=== PATIENT | male | born 1960 | race Caucasian/White ===

== ENCOUNTER 2017-03-06 14:51 | Emergency (ER) | payer OTHER ==
[2017-03-06 15:00] VITALS: TEMP 97.6; BMI 39.4
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
[2017-03-06] MEDS ORDERED: OXYCODONE/APAP 5/325MG COMBO TABLET PO ONE (18:32)
[2017-03-06] MEDS ORDERED: OXYCODONE/APAP 5/325MG COMBO TABLET ONE (19:16)
[2017-03-06 19:21] VITALS: BP 154/89; PULSE 65
== END 2017-03-06 19:21 | disposition home or self-care (01) ==
LOC: JER 14:51
DX: S13.4XXA Sprain of ligaments of cervical spine, initial encounter (principal); V43.52XA Car driver injured in collision with other type car in traffic accident, initial encounter; Y93.89 Activity, other specified; Y92.410 Unspecified street and highway as the place of occurrence of the external cause; E11.9 Type 2 diabetes mellitus without complications; I10 Essential (primary) hypertension; E78.00 Pure hypercholesterolemia, unspecified; Z79.4 Long term (current) use of insulin; Z96.41 Presence of insulin pump (external) (internal); Z95.5 Presence of coronary angioplasty implant and graft; Z95.810 Presence of automatic (implantable) cardiac defibrillator
CPT/HCPCS: 70450-TC; 99282-25

== ENCOUNTER 2017-09-28 10:29 | Observation (INO) | payer OTHER ==
--- NOTE | 2017-09-28 10:53 | PDOC ---
History of Present Illness - General Chief Complaint: Chest Pain Stated Complaint: CHEST PAIN, DIZZINESS Time Seen by Provider: 09/28/17 10:38 History Source: Patient - History of Present Illness Presenting Symptoms: Chest Pain, Dizziness Timing/Duration: reports: intermittent Past History - Past Medical History Allergies/Adverse Reactions: Allergies Allergy/AdvReac Type Severity Reaction Status Date / Time No Known Allergies Allergy Verified 09/28/17 10:34 Home Medications: Ambulatory Orders Atorvastatin Ca [Lipitor] 80 mg PO HS 07/13/13 Carvedilol Phosphate [Coreg Cr] 25 mg PO DAILY 07/13/13 Clopidogrel Bisulfate [Plavix -] 75 mg PO DAILY 07/13/13 Ranolazine [Ranexa] 500 mg PO BID 07/13/13 Ranitidine [Zantac -] 150 mg PO DAILY 06/19/17 Insulin (Levemir) [Levemir Vial] 25 unit SQ ACBK 06/20/17 Clonidine Patch [Catapres Tts Patch -] 0.3 mg TD WEEKLY 06/21/17 Insulin (LOG) Aspart [NovoLOG -] 0 units SQ ACHS 06/21/17 Isosorbide Mononitrate [Imdur -] 30 mg PO DAILY #30 tab 06/23/17 Aspirin [ASA -] 81 mg PO DAILY 09/28/17 Ergocalciferol (Vitamin D2) [Vitamin D2] 50,000 unit PO DAILY 09/28/17 Febuxostat [Uloric -] 80 mg PO DAILY 09/28/17 Nitroglycerin [Nitrostat] 0.4 mg SL PRN PRN 09/28/17 Sacubitril/Valsartan [Entresto 24 mg-26 mg Tablet] 4 each PO ASDIR 09/28/17 Anemia: Yes Asthma: No Cancer: No Cardiac Disorders: Yes (cad,mi Defibrilator) CVA: No COPD: No CHF: Yes Dementia: No Diabetes: Yes (IDDM) GI Disorders: No Disorders: No HTN: Yes Hypercholesterolemia: Yes Liver Disease: No Seizures: No Thyroid Disease: No - Surgical History Cardiac Surgery: Yes (CABG,ICD,CARD STENT X1, DEFIBRILLATOR) GI Surgery: Yes (INSULIN PUMP) Orthopedic Surgery: Yes (left knee arthoscopy) - Suicide/Smoking/Psychosocial Hx Smoking History: Never smoked Hx Alcohol Use: No Drug/Substance Use Hx: No Substance Use Type: None Hx Substance Use Treatment: No Cardiac Specific PMH - Complaint Specific PMHX Pacemaker: No Review of Systems - Review of Systems Constitutional: No: Chills, Fever Respiratory: No: Cough, Shortness of Breath Cardiac (ROS): Yes: Chest Pain. No: Palpitations, Syncope ABD/GI: Yes: Nausea. No: Vomiting Neurological: Yes: Dizziness. No: Headache, Numbness, Tingling, Weakness *Physical Exam - Vital Signs Last Vital Signs Temp Pulse Resp BP Pulse Ox 97.5 F L 66 14 122/75 100 09/28/17 10:32 09/28/17 13:26 09/28/17 13:26 09/28/17 13:26 09/28/17 13:26 - Physical Exam General Appearance: Yes: Appropriately Dressed. No: Apparent Distress HEENT: positive: Normal Voice Neck: positive: Supple Respiratory/Chest: positive: Lungs Clear, Normal Breath Sounds. negative: Respiratory Distress Cardiovascular: positive: Regular Rate, S1, S2 Gastrointestinal/Abdominal: positive: Soft. negative: Tender Extremity: positive: Normal Inspection. negative: Pedal Edema Integumentary: positive: Dry, Warm Neurologic: positive: Fully Oriented, Alert, Normal Mood/Affect ED Treatment Course - LABORATORY CBC & Chemistry Diagram: 09/28/17 12:25 09/28/17 12:25 - ADDITIONAL ORDERS Additional order review: Laboratory Results 09/28/17 09/28/17 12:25 12:25 Sodium 135 L Potassium 4.6 Chloride 102 Carbon Dioxide 24 Anion Gap 9 BUN 75 H Creatinine 4.3 H Creat Clearance w eGFR 14.41 Random Glucose 146 H D Calcium 8.1 L Total Bilirubin 0.4 D AST 16 ALT 26 Alkaline Phosphatase 136 H Creatine Kinase 86 Troponin I 0.42 H D B-Natriuretic Peptide 3492.34 H Total Protein 7.6 Albumin 3.4 09/28/17 12:25 RBC 3.78 L MCV 87.8 MCHC 34.4 RDW 14.5 MPV 6.9 L Neutrophils % 73.7 Lymphocytes % 15.4 Monocytes % 8.8 Eosinophils % 1.2 Basophils % 0.9 - RADIOLOGY Radiology Studies Ordered: Category Date Time Status CHEST X-RAY PORTABLE* [RAD] Stat Radiology 09/28/17 10:42 Completed - Medications Given in the ED: ED Medications Discontinued Medications Generic Name Dose Route Start Last Admin Trade Name Giuliano PRN Reason Stop Dose Admin Aspirin 325 mg 09/28/17 11:00 09/28/17 11:52 Asa - PO 09/28/17 11:01 Not Given ONCE ONE Aspirin 162 mg 09/28/17 11:42 09/28/17 11:42 Asa - PO 09/28/17 11:43 162 mg ONCE ONE Administration Medical Decision Making - Medical Decision Making 09/28/17 10:47 56-year-old male, significant cardiac disease including hypertension, hyperlipidemia, CAD, status post AL, status post CABG, status post stent 1, CHF on torsemide, status post AICD, aortic stenosis, CKD, insulin-dependent diabetic and left retinal detachment, here with dizziness and chest pain. Patient states he was in his usual state of health until this a.m. when he woke up with a sensation of the room spinning that has since improved. Denies any exacerbating or alleviating factors. Denies headache, acute visual changes, slurred speech or focal weakness. Around 40 minutes ago developed left upper non-radiating chest pain that is sharp in nature with an intensity of 8 out of 10, ntermittent and lasts for seconds w/ no exacerbating/alleviating factors. No shortness of breath, diaphoresis or acute edema. Does admit to nausea but no vomiting. States he has had a similar chest pain multiple times in the past that usually self resolves. States dizziness is new for him. Patient follows up with Dr. Stevenson of primary care and Dr. Mac of cardiology. States he saw his administrative project coordinator recently who increased his entresto. See exam CP w/ dizziness R/o ACS, less likely PE, dissection or CVA Hypotensive in ED w/ unremarkable exam otherwise -asa -ekg -cxr -labs -anticipate admission 09/28/17 11:00 09/28/17 13:18 EKG unchanged from prior. BNP of over 3000, higher that in the past, but no evidence of fluid overload clinically. Has elevated troponin of 0.4. Based on chart review, usually makes trops of ~0.1, highest 0.9 Tropenemia today possibly 2/2 demand ischemia. Patient has no chest pain, shortness of breath at this time, and stable on monitor. Will contact Dr. Mullen of cardiology to discuss disposition 09/28/17 14:[address] Jensen of cardiology, no recommendations at this time, will see patient in the a.m. Case discussed with hospitalist and patient admitted to obs telemetry *DC/Admit/Observation/Transfer Diagnosis at time of Disposition: Chest pain Qualifiers: Chest pain type: unspecified Qualified Code(s): R07.9 - Chest pain, unspecified - Discharge Dispostion Condition at time of disposition: Fair Admit: Yes Decision to Admit order Date/Time: Decision to Admit Order Category Date Time Status Decision to Admit to Hospital Routine Admission 09/28/17 14:43 Ordered - Referrals - Patient Instructions Printed Discharge Instructions: DI for Atypical Chest Pain - Post Discharge Activity
[2017-09-28] MEDS ORDERED: ASPIRIN 325 MG TABLET PO ONE ×2 (11:00→11:42)
[2017-09-28] MEDS ORDERED: ASPIRIN 81 MG CHEWABLE TABLETS ONE (11:43)
[2017-09-28 12:29] LABS: BASO % 0.9 % (0-2.0); EOS % 1.2 % (0-4.5); HEMATOCRIT 33.2 % (35.4-49); HEMOGLOBIN 11.4 GM/dL (11.7-16.9); LYMPH % 15.4 % (8-40); MCH 30.2 pg (25.7-33.7); MCHC 34.4 g/dl (32.0-35.9); MEAN CELL VOLUME 87.8 fl (80-96); MEAN PLT VOLUME 6.9 fl (7.5-11.1); MONO % 8.8 % (3.8-10.2); NEUT % 73.7 % (42.8-82.8); PLATELET COUNT 253 K/MM3 (134-434); RBC 3.78 M/mm3 (4.00-5.60); RDW 14.5 % (11.9-15.9); WHITE BLOOD COUNT 8.5 K/mm3 (4.0-10.0)
[2017-09-28 12:55] LABS: ALBUMIN 3.4 g/dl (3.4-5.0); ANION GAP 9 (8-16); BILIRUBIN,TOTAL 0.4 mg/dL (0.2-1.0); BLOOD UREA NITROGEN 75 mg/dL (7-18); CALCIUM 8.1 mg/dL (8.5-10.1); CHLORIDE 102 mmol/L (98-107); CO2 24 mmol/L (21-32); CREATININE 4.3 mg/dL (0.7-1.3); GLUCOSE,RANDOM 146 mg/dL (74-106); POTASSIUM 4.6 mmol/L (3.5-5.1); SGOT/AST 16 U/L (15-37); SGPT/ALT 26 U/L (12-78); SODIUM 135 mmol/L (136-145); TOT PROT 7.6 g/dl (6.4-8.2)
[2017-09-28 12:57] LABS: ALK PHOS 136 U/L (45-117)
--- NOTE | 2017-09-28 14:55 | HP ---
CHIEF COMPLAINT: chest pain, dizziness PCP: Dr. Stevenson HISTORY OF PRESENT ILLNESS: This is a 56 year old male with a significant past medical history of HTN, HLD, CAD, SD s/p CABG, systolic heart failure, s/p AICD, , CKD, DM, presents to the emergency room with chest pain and dizziness since he woke up this morning. Chest pain is sharp, around area of defibrillator, which is chronic for him. He denies numbness, tingling, radiation, arm, jaw pain, n, v, diaphoresis, palpitations. Dizziness was apparent after getting out of bed, it progressed throughout the day and at work. Sitting down/ rest relieved dizziness. He denies LOC. He did not eat or drink anything today. Dizziness progressed throughout the day which provoked coming to the hospital. Patient follows with cardiology regularly, as per patient his medication entresto was doubled recently. ER course was notable for: (1) CBC, CMP (2)EKG no ST,T wave changes (3)CXR no acute process (4)trop 0.42 ,BNP >3000 Recent Travel:denies PAST MEDICAL HISTORY: HTN, HLD, CAD s/p SD, systolic heart failure, aortic stenosis, CKD, IDDM, and left retinal detachment, gout, JOSIANE PAST SURGICAL HISTORY: stent [facility] 2006; acid 2007, left knee arthroscope Social History: Smoking:denies Alcohol:denies Drugs: denies Family History: HTN , DM, Cancer (no known what type), heart diseases Allergies No Known Allergies Allergy (Verified 09/28/17 10:34) HOME MEDICATIONS: Home Medications Medication Instructions Recorded Atorvastatin Ca [Lipitor] 80 mg PO HS 07/13/13 Carvedilol Phosphate [Coreg Cr] 25 mg PO DAILY 07/13/13 Clopidogrel Bisulfate [Plavix -] 75 mg PO DAILY 07/13/13 Ranolazine [Ranexa] 500 mg PO BID 07/13/13 Ranitidine [Zantac -] 150 mg PO DAILY 06/19/17 Insulin (Levemir) [Levemir Vial] 25 unit SQ ACBK 06/20/17 Clonidine Patch [Catapres Tts 0.3 mg TD WEEKLY 06/21/17 Patch -] Insulin (LOG) Aspart [NovoLOG -] 0 units SQ ACHS 06/21/17 Isosorbide Mononitrate [Imdur -] 30 mg PO DAILY #30 tab 06/23/17 Aspirin [ASA -] 81 mg PO DAILY 09/28/17 Ergocalciferol (Vitamin D2) 50,000 unit PO DAILY 09/28/17 [Vitamin D2] Febuxostat [Uloric -] 80 mg PO DAILY 09/28/17 Nitroglycerin [Nitrostat] 0.4 mg SL PRN PRN 09/28/17 Sacubitril/Valsartan [Entresto 24 4 each PO ASDIR 09/28/17 mg-26 mg Tablet] REVIEW OF SYSTEMS CONSTITUTIONAL: Absent: fever, chills, diaphoresis, generalized weakness, malaise, loss of appetite, weight change HEENT: Absent: rhinorrhea, nasal congestion, throat pain, throat swelling, difficulty swallowing, mouth swelling, ear pain, eye pain, visual changes CARDIOVASCULAR: Absent: chest pain, syncope, palpitations, irregular heart rate, lightheadedness , peripheral edema RESPIRATORY: Absent: cough, shortness of breath, dyspnea with exertion, orthopnea, wheezing, stridor, hemoptysis GASTROINTESTINAL: Absent: abdominal pain, abdominal distension, nausea, vomiting, diarrhea, constipation, melena, hematochezia GENITOURINARY: Absent: dysuria, frequency, urgency, hesitancy, hematuria, flank pain, genital pain MUSCULOSKELETAL: Absent: myalgia, arthralgia, joint swelling, back pain, neck pain SKIN: Absent: rash, itching, pallor HEMATOLOGIC/IMMUNOLOGIC: Absent: easy bleeding, easy bruising, lymphadenopathy, frequent infections ENDOCRINE: Absent: unexplained weight gain, unexplained weight loss, heat intolerance, cold intolerance NEUROLOGIC: Absent: headache, focal weakness or paresthesias, dizziness, unsteady gait, seizure, mental status changes, bladder or bowel incontinence PSYCHIATRIC: Absent: anxiety, depression, suicidal or homicidal ideation, hallucinations. PHYSICAL EXAMINATION Vital Signs - 24 hr 09/28/17 09/28/17 09/28/17 10:32 11:50 13:26 Temperature 97.5 F L Pulse Rate 70 Pulse Rate [ 70 66 Apical] Respiratory 18 16 14 Rate Blood Pressure 99/68 Blood Pressure 123/70 122/75 [Right Arm] O2 Sat by Pulse 100 100 100 Oximetry (%) GENERAL: Awake, alert, and fully oriented, in no acute distress. HEAD: Normal with no signs of trauma. EYES:left eye legal blind cornea white , Right eye Pupils equal, round and reactive to light, extraocular movements intact, sclera anicteric, conjunctiva clear ENT: Moist mucous membranes. NECK: Normal range of motion, supple without lymphadenopathy, JVD, LUNGS: Breath sounds equal, clear to auscultation bilaterally. No wheezes, and no crackles. No accessory muscle use. HEART: Regular rate and rhythm, normal S1 and S2 2/6 systolic murmur in LUSB , No rub or gallop. ABDOMEN: Obese, Soft, nontender, not distended, normoactive bowel sounds, no guarding, no rebound MUSCULOSKELETAL: Normal range of motion at all joints. No bony deformities or tenderness. No CVA tenderness. UPPER EXTREMITIES: 2+ pulses, warm, well-perfused. No cyanosis. No clubbing. No peripheral edema. LOWER EXTREMITIES: 2+ pulses, warm, well-perfused. No calf tenderness. No peripheral edema. NEUROLOGICAL: Cranial nerves II-XII intact. Normal speech. PSYCHIATRIC: Cooperative. Good eye contact. Appropriate mood and affect. SKIN: Warm, dry, normal turgor, no rashes or lesions noted, normal capillary refill. Laboratory Results - last 24 hr 09/28/17 09/28/17 09/28/17 12:25 12:25 12:25 WBC 8.5 D RBC 3.78 L Hgb 11.4 L D Hct 33.2 L MCV 87.8 MCH 30.2 MCHC 34.4 RDW 14.5 Plt Count 253 D MPV 6.9 L Neutrophils % 73.7 Lymphocytes % 15.4 Monocytes % 8.8 Eosinophils % 1.2 Basophils % 0.9 Sodium 135 L Potassium 4.6 Chloride 102 Carbon Dioxide 24 Anion Gap 9 BUN 75 H Creatinine 4.3 H Creat Clearance w eGFR 14.41 Random Glucose 146 H D Calcium 8.1 L Total Bilirubin 0.4 D AST 16 ALT 26 Alkaline Phosphatase 136 H Creatine Kinase 86 Troponin I 0.42 H D B-Natriuretic Peptide 3492.34 H Total Protein 7.6 Albumin 3.4 CBC, BMP 09/28/17 12:25 09/28/17 12:25 ASSESSMENT/PLAN: # chest pain R/O ACS * Trop 0.42 trend (has chronic elevation around 0.9 ) * EKG : NO St,T wave changes * ASA * CXR * cardiac monitoring * ECHO 07/03: LV systolic dysfunction with mild * Stress test 07/03: with anterior ischemic defect, inferior, infero-lateral defect infarct with avani-infarct ischemia, severe LV dysfunction with LVEF of 27 % * cardiology consult * cont home nitrostat 0.4mg sl prn and renexa 500mg po bod for chest pain #Dizziness: * most likely dehydrated * check orthostatic BP * gentle hydration NS 75mls/hr # HECTOR on CKD stage 4 * BUN/CR 75/4.3 , monitor base line around 3.2 * gentle hydration NS @ 75 CC/hr * * # H/O CAD s/p CABG, s/p stent x1 , SD * Continue ASA * Carvedilol cr 80mg daily * Plavix 75mg daily * Ranexa 500 BID * cont imdur 30mg chaparro # HTN * low on admission 99/68 improved to 123/70 * continue home meds coreg 80 daily, clonidine 0.3 patch weekly , Imdur 30 mg po daily,Entresto # chronic systolic CHF in no acute exacerbation * elevated BNP around 3000 * no signs of volume overload; lungs clear; not sob; no edema * CXR with cardiomegaly; unchanged from previous * cont home diuretic meds * last ECHO 06/22/17 : LV systolic dysfunction , , * Stress test positive with anterior ischemic defect, inferior, infero-lateral defect infarct with avani-infarct ischemia, severe LV dysfunction with LVEF of 27 % * # HLD * continue Lipitor 80 mg po HS # IDDM, * hold oral meds * ISS * cont Levemir 25 ACBK * Diabetic diet * last HGbA1c 9.2 , repeat # H/O Gout , stable * not using home meds Febuxostat # FEN * F: gently hydration 1L NS * E: elevated BUN /CR , monitor * N: low sodium,diabetic diet # Proph * DVT: cont plavix 75 mg daily * GI : no needed for now # Dispo * Admit to tele obs
[2017-09-28 15:01] LABS: URINE APPEARANCE CLEAR; URINE BILIRUBIN NEGATIVE (NEGATIVE); URINE BLOOD NEGATIVE (NEGATIVE); URINE COLOR YELLOW; URINE GLUCOSE (UA) 1+ (NEGATIVE); URINE KETONE NEGATIVE (NEGATIVE); URINE LEUK ESTERASE NEGATIVE (NEGATIVE); URINE NITRITE NEGATIVE (NEGATIVE); URINE UROBILINOGEN NEGATIVE mg/dL (0.2-1.0)
--- NOTE | 2017-09-28 15:04 | HP ---
CHIEF COMPLAINT: chest pain/dizzy PCP: Dr. Stevenson HISTORY OF PRESENT ILLNESS: This is a 56 year old male with a significant past medical history of HTN, HLD, CAD, [place] s/p CABG, systolic heart failure, s/p AICD, , CKD, DM, presents to the emergency room with chest pain and dizziness since he woke up this morning. Chest pain is sharp, around area of defibrillator, which is chronic for him. He denies numbness, tingling, radiation, arm, jaw pain, n, v, diaphoresis, palpitations. Dizziness was apparent after getting out of bed, it progressed throughout the day and at work. Sitting down/ rest relieved dizziness. He denies LOC. He did not eat or drink anything today. Dizziness progressed throughout the day which provoked coming to the hospital. Patient follows with cardiology regularly, as per patient his medication entresto was doubled recently. ER course was notable for: ECG unchanged from previous. First troponin was 0.42 ; (chronically around 0.1-0.9). BNP was elevated >3,000; (chronically around 1, 000). BUN/Cr slightly elevated from baseline. CXR with cardiomegaly; no new effusion. Recent Travel: no PAST MEDICAL HISTORYHTN, HLD, CAD s/p NC, systolic heart failure, aortic stenosis, CKD, IDDM, and left retinal detachment, gout, JOSIANE PAST SURGICAL HISTORY: stent [facility] 2006; acid 2007 Social History: Smoking:quit 50 yrs ago Alcohol:no Drugs: no Family History: Allergies No Known Allergies Allergy (Verified 09/28/17 10:34) HOME MEDICATIONS: Home Medications Medication Instructions Recorded Atorvastatin Ca [Lipitor] 80 mg PO HS 07/13/13 Carvedilol Phosphate [Coreg Cr] 25 mg PO DAILY 07/13/13 Clopidogrel Bisulfate [Plavix -] 75 mg PO DAILY 07/13/13 Ranolazine [Ranexa] 500 mg PO BID 07/13/13 Ranitidine [Zantac -] 150 mg PO DAILY 06/19/17 Insulin (Levemir) [Levemir Vial] 25 unit SQ ACBK 06/20/17 Clonidine Patch [Catapres Tts 0.3 mg TD WEEKLY 06/21/17 Patch -] Insulin (LOG) Aspart [NovoLOG -] 0 units SQ ACHS 06/21/17 Isosorbide Mononitrate [Imdur -] 30 mg PO DAILY #30 tab 06/23/17 Aspirin [ASA -] 81 mg PO DAILY 09/28/17 Ergocalciferol (Vitamin D2) 50,000 unit PO DAILY 09/28/17 [Vitamin D2] Febuxostat [Uloric -] 80 mg PO DAILY 09/28/17 Nitroglycerin [Nitrostat] 0.4 mg SL PRN PRN 09/28/17 Sacubitril/Valsartan [Entresto 24 4 each PO ASDIR 09/28/17 mg-26 mg Tablet] REVIEW OF SYSTEMS CONSTITUTIONAL: Absent: fever, chills, diaphoresis, generalized weakness, malaise, loss of appetite, weight change HEENT: Absent: rhinorrhea, nasal congestion, throat pain, throat swelling, difficulty swallowing, mouth swelling, ear pain, eye pain, visual changes CARDIOVASCULAR: Positive: chest pain Absent: chest pain, syncope, palpitations, irregular heart rate, lightheadedness , peripheral edema RESPIRATORY: Absent: cough, shortness of breath, dyspnea with exertion, orthopnea, wheezing, stridor, hemoptysis GASTROINTESTINAL: Absent: abdominal pain, abdominal distension, nausea, vomiting, diarrhea, constipation, melena, hematochezia GENITOURINARY: Absent: dysuria, frequency, urgency, hesitancy, hematuria, flank pain, genital pain MUSCULOSKELETAL: Absent: myalgia, arthralgia, joint swelling, back pain, neck pain SKIN: Absent: rash, itching, pallor HEMATOLOGIC/IMMUNOLOGIC: Absent: easy bleeding, easy bruising, lymphadenopathy, frequent infections ENDOCRINE: Absent: unexplained weight gain, unexplained weight loss, heat intolerance, cold intolerance NEUROLOGIC: Positive: dizziness, Absent: headache, focal weakness or paresthesias, unsteady gait, seizure, mental status changes, bladder or bowel incontinence PSYCHIATRIC: Absent: anxiety, depression, suicidal or homicidal ideation, hallucinations. PHYSICAL EXAMINATION Vital Signs - 24 hr 09/28/17 09/28/17 09/28/17 10:32 11:50 13:26 Temperature 97.5 F L Pulse Rate 70 Pulse Rate [ 70 66 Apical] Respiratory 18 16 14 Rate Blood Pressure 99/68 Blood Pressure 123/70 122/75 [Right Arm] O2 Sat by Pulse 100 100 100 Oximetry (%) GENERAL: obese, Awake, alert, and fully oriented, in no acute distress. HEAD: Normal with no signs of trauma. EYES: Pupils equal, round and reactive to light, extraocular movements intact, sclera anicteric, conjunctiva clear. No lid lag. NECK: Normal range of motion, supple without lymphadenopathy, JVD, or masses. LUNGS: Breath sounds equal, clear to auscultation bilaterally. No wheezes, and no crackles. No accessory muscle use. HEART: Regular rate and rhythm, normal S1 and S2 without murmur, rub or gallop. ABDOMEN: Soft, nontender, not distended, normoactive bowel sounds, no guarding, no rebound, no masses. No hepatomegaly or splenomegaly. MUSCULOSKELETAL: Normal range of motion at all joints. No bony deformities or tenderness. No CVA tenderness. UPPER EXTREMITIES: 2+ pulses, warm, well-perfused. No cyanosis. No clubbing. No peripheral edema. LOWER EXTREMITIES: 2+ pulses, warm, well-perfused. No calf tenderness. No peripheral edema. NEUROLOGICAL: Cranial nerves II-XII intact. Normal speech. Motor strength 5/5 all extremities; sensation to light touch and pain intact; reflexes 2+ ; PSYCHIATRIC: Cooperative. Good eye contact. Appropriate mood and affect. SKIN: Warm, dry, normal turgor, no rashes or lesions noted, normal capillary refill. Laboratory Results - last 24 hr 09/28/17 09/28/17 09/28/17 12:25 12:25 12:25 WBC 8.5 D RBC 3.78 L Hgb 11.4 L D Hct 33.2 L MCV 87.8 MCH 30.2 MCHC 34.4 RDW 14.5 Plt Count 253 D MPV 6.9 L Neutrophils % 73.7 Lymphocytes % 15.4 Monocytes % 8.8 Eosinophils % 1.2 Basophils % 0.9 Sodium 135 L Potassium 4.6 Chloride 102 Carbon Dioxide 24 Anion Gap 9 BUN 75 H Creatinine 4.3 H Creat Clearance w eGFR 14.41 Random Glucose 146 H D Calcium 8.1 L Total Bilirubin 0.4 D AST 16 ALT 26 Alkaline Phosphatase 136 H Creatine Kinase 86 Troponin I 0.42 H D B-Natriuretic Peptide 3492.34 H Total Protein 7.6 Albumin 3.4 ASSESSMENT/PLAN: This is a 56 year old male with a significant cardiac history as stated above; who presents with chest pain and dizziness x 1 day. Rule out ACS although unlikely, as this is chronic for him. Recent cardiac workup and follow with with cardiology was done with in the last three months. Will wait for further troponins. Monitor on tele obs. Dizziness most luikey related to dehydration, orhtosatic hypotension. Patient has not eaten/drank anything in over one day. Labs do show elevated BUN. #Chest pain; rule out out ACS -cardiac monitoring -trend troponins -cont home nitrostat 0.4mg sl prn and renexa 500mg po bod for chest pain -ECG no signs of st/t wave changes ; -ECHO 07/03: LV systolic dysfunction with mild -Stress test 07/03: with anterior ischemic defect, inferior, infero-lateral defect infarct with avani-infarct ischemia, severe LV dysfunction with LVEF of 27 % -cont cardiac home meds; will consult cardio for further recs #Dizziness: -most likely dehydrated -check orthostatic BP -will give gentle hydration NS 75mls/hr #hx of chronic systolic HF -today with elevated BNP above baseline -does not show signs of volume overload; lungs clear; not sob; no edema -CXR with cardiomegaly; unchanged from previous -cont home diuretic meds #CKD stage 2; GFR >60 -BUN/Cr on today labs elevated from previous visit -gentle hydration -consult nephrology #hx CAD; cont asa; BB; plavix, statin #Diabetes mellitus -cont home long acting insulin -insulin SS -bgm ACHS #electrolytes: wnl #diet: cardiac DVT: heparin sq Disposition: monitor cadiac tele Case was discussed with attending. Deja Magana PGY-2 Problem List - Problem (1) Dizziness Code(s): R42 - DIZZINESS AND GIDDINESS (2) Systolic heart failure Code(s): I50.20 - UNSPECIFIED SYSTOLIC (CONGESTIVE) HEART FAILURE (3) Elevated brain natriuretic peptide (BNP) level Code(s): R79.89 - OTHER SPECIFIED ABNORMAL FINDINGS OF BLOOD CHEMISTRY (4) CKD (chronic kidney disease) stage 2, GFR 60-89 ml/min Code(s): N18.2 - CHRONIC KIDNEY DISEASE, STAGE 2 (MILD) (5) Chest pain Code(s): R07.9 - CHEST PAIN, UNSPECIFIED Qualifiers: Chest pain type: unspecified Qualified Code(s): R07.9 - Chest pain, unspecified (6) CAD (coronary artery disease) Code(s): I25.10 - ATHSCL HEART DISEASE OF [place] CORONARY ARTERY W/O ANG PCTRS Qualifiers: Coronary Disease-Associated Artery/Lesion type: [place] artery [employer] vs. transplanted heart: [place] heart Associated angina: without angina Qualified Code(s): I25.10 - Atherosclerotic heart disease of [place] coronary artery without angina pectoris (7) Diabetes mellitus Code(s): E11.9 - TYPE 2 DIABETES MELLITUS WITHOUT COMPLICATIONS Qualifiers: Diabetes mellitus type: type 2 Diabetes mellitus complication status: without complication (8) Elevated troponin Code(s): R79.89 - OTHER SPECIFIED ABNORMAL FINDINGS OF BLOOD CHEMISTRY (9) HTN (hypertension) Code(s): I10 - ESSENTIAL (PRIMARY) HYPERTENSION Qualifiers: Hypertension type: essential hypertension Qualified Code(s): I10 - Essential (primary) hypertension Visit type - Emergency Visit Emergency Visit: Yes Care time: The patient presented to the Emergency Department on the above date and was hospitalized for further evaluation of their emergent condition. - New Patient This patient is new to me today: Yes Date on this admission: 09/28/17 - Critical Care Critical Care patient: No
[2017-09-28 15:18] LABS: URINE PROTEIN 3+ (NEGATIVE)
[2017-09-28 15:21] LABS: EPI CELLS RARE /HPF (FEW); URINE BACTERIA RARE /hpf (NONE SEEN); URINE HYALINE CAST 13 /lpf; URINE MUCUS RARE
[2017-09-28] MEDS ORDERED: SODIUM CHLORIDE 1,000 ML IV SCH (16:00)
[2017-09-28] MEDS ORDERED: NITROGLYCERIN SUBLINGUAL 1/150 0.4 MG TAB SL PRN (16:07)
[2017-09-28] MEDS: INSULIN SLIDING SCALE (NOVOLOG) 1 VIAL SQ SCH ×2 (16:23→22:44)
[2017-09-28] MEDS ORDERED: INSULIN (NOVOLOG) ASPART 100 UNITS/ML 10ML VIAL ONE ×2 (16:27→22:32)
--- NOTE | 2017-09-28 16:27 | PN ---
Teaching Attending Note Name of Resident: Pilo Ryan ATTENDING PHYSICIAN STATEMENT I saw and evaluated the patient. I reviewed the resident's note and discussed the case with the resident. I agree with the resident's findings and plan as documented. SUBJECTIVE: This is a 56 year old man with a history of CAD, [place], CABG, chronic systolic heart failure, AICD, HTN, hyperlipidemia, , stage 4 CKD, type 2 DM, gout who comes to the ED complaining of chest pain and dizziness that started when he woke up this morning. The pain was located in the left side of his chest , near the AICD. He has had this in the past, relieved by SL NTG. This morning he took SL NTG x 1 and the pain resolved. The pain did not radiate and he did not have diaphoresis, palpitations, or nausea. After getting out of bed, he became dizzy and it worsened during the day while at work. Dizziness improved when he sat. He reports that one of his heart medications was recently increased. OBJECTIVE: Vital Signs Period Temp Pulse Resp BP Sys/Gallo Pulse Ox Last 24 Hr 97.5 F 66-70 14-18 99-123/68-75 100-100 HEART: S1S2, RRR, (+) 2/6 SM LUNGS: Clear ABDOMEN: Obese, soft, non-tender, non-distended, normal BS EXTREMITIES: No edema Laboratory Tests 09/28/17 09/28/17 09/28/17 12:25 12:25 12:25 WBC 8.5 D RBC 3.78 L Hgb 11.4 L D Hct 33.2 L MCV 87.8 MCH 30.2 MCHC 34.4 RDW 14.5 Plt Count 253 D MPV 6.9 L Neutrophils % 73.7 Lymphocytes % 15.4 Monocytes % 8.8 Eosinophils % 1.2 Basophils % 0.9 Sodium 135 L Potassium 4.6 Chloride 102 Carbon Dioxide 24 Anion Gap 9 BUN 75 H Creatinine 4.3 H Creat Clearance w eGFR 14.41 Random Glucose 146 H D Calcium 8.1 L Total Bilirubin 0.4 D AST 16 ALT 26 Alkaline Phosphatase 136 H Creatine Kinase 86 Troponin I 0.42 H D B-Natriuretic Peptide 3492.34 H Total Protein 7.6 Albumin 3.4 Urine Color Urine Appearance Urine pH Ur Specific [place] Urine Protein Urine Glucose (UA) Urine Ketones Urine Blood Urine Nitrite Urine Bilirubin Urine Urobilinogen Ur Leukocyte Esterase Urine WBC (Auto) Urine RBC (Auto) Ur Epithelial Cells Urine Bacteria Hyaline Casts Urine Mucus 09/28/17 14:50 WBC RBC Hgb Hct MCV MCH MCHC RDW Plt Count MPV Neutrophils % Lymphocytes % Monocytes % Eosinophils % Basophils % Sodium Potassium Chloride Carbon Dioxide Anion Gap BUN Creatinine Creat Clearance w eGFR Random Glucose Calcium Total Bilirubin AST ALT Alkaline Phosphatase Creatine Kinase Troponin I B-Natriuretic Peptide Total Protein Albumin Urine Color Yellow Urine Appearance Clear Urine pH 5.0 Ur Specific [place] 1.011 Urine Protein 3+ H Urine Glucose (UA) 1+ H Urine Ketones Negative Urine Blood Negative Urine Nitrite Negative Urine Bilirubin Negative Urine Urobilinogen Negative Ur Leukocyte Esterase Negative Urine WBC (Auto) 1 Urine RBC (Auto) 2 Ur Epithelial Cells Rare Urine Bacteria Rare Hyaline Casts 13 Urine Mucus Rare Home Medications Medication Instructions Recorded Atorvastatin Ca [Lipitor] 80 mg PO HS 07/13/13 Carvedilol Phosphate [Coreg Cr] 25 mg PO DAILY 07/13/13 Clopidogrel Bisulfate [Plavix -] 75 mg PO DAILY 07/13/13 Ranolazine [Ranexa] 500 mg PO BID 07/13/13 Ranitidine [Zantac -] 150 mg PO DAILY 06/19/17 Insulin (Levemir) [Levemir Vial] 25 unit SQ ACBK 06/20/17 Clonidine Patch [Catapres Tts 0.3 mg TD WEEKLY 06/21/17 Patch -] Insulin (LOG) Aspart [NovoLOG -] 0 units SQ ACHS 06/21/17 Isosorbide Mononitrate [Imdur -] 30 mg PO DAILY #30 tab 06/23/17 Aspirin [ASA -] 81 mg PO DAILY 09/28/17 Ergocalciferol (Vitamin D2) 50,000 unit PO DAILY 09/28/17 [Vitamin D2] Febuxostat [Uloric -] 80 mg PO DAILY 09/28/17 Nitroglycerin [Nitrostat] 0.4 mg SL PRN PRN 09/28/17 Sacubitril/Valsartan [Entresto 24 4 each PO ASDIR 09/28/17 mg-26 mg Tablet] ASSESSMENT AND PLAN: This is a 56 year old man with a history of CAD, [place], CABG, chronic systolic heart failure, AICD, HTN, hyperlipidemia, , stage 4 CKD, type 2 DM, gout who presented to the ED today with an episode of chest pain at rest that resolved with SL NTG, and dizziness when he got out of bed. He was found to have BP 99/68 , BUN 75, creatinine 4.3, BNP 3492, troponin 0.42. 1. Dizziness, likely secondary to hypotension/volume depletion - Observe on telemetry - Hold antihypertensives - Gentle IV hydration - Monitor orthostatic vitals 2. Chest pain - Possible stable angina - No ischemic changes on EKG - Observe on telemetry - Serial troponins - Cardiology evaluation 3. Acute kidney injury on stage 4 CKD - Likely secondary to hypoperfusion and medications - Hold Entresto - Gentle IV hydration - Monitor BUN, creatinine - Nephrology evaluation 4. Chronic systolic heart failure - BNP is 3492 but there are no signs of fluid overload/acute heart failure - Has AICD 5. Elevated troponin - Possibly secondary to CKD and demand ischemia from hypotension 6. CAD, history of [place], CABG - Continue aspirin, Plavix, Lipitor, Ranexa - Hold Coreg, Imdur secondary to hypotension 7. HTN - Hold antihypertensives secondary to hypotension 8. Hyperlipidemia - Continue Lipitor 9. Aortic stenosis 10. Type 2 diabetes mellitus - Continue Levemir - Fingersticks with Novolog sliding scale 11. History of gout - Continue Uloric
[2017-09-28] MEDS ORDERED: cloNIDine-TTS 0.3 MG /24 HRS PATCH.TDWK TD SCH (17:00)
[2017-09-28] MEDS: DOCUSATE SODIUM 100 MG CAPSULE (FP) PO SCH (22:05)
[2017-09-28] MEDS: SACUBITRIL/VALSARTAN 97 MG-103 MG TABLET PO SCH (22:25)
[2017-09-28] MEDS ORDERED: DOCUSATE SODIUM 100 MG CAPSULE (FP) PO ONE (22:29)
[2017-09-28] MEDS ORDERED: HEPARIN NA (PORCINE) 5,000 UNITS/ML 1ML VIAL ONE (22:30)
[2017-09-28] MEDS: ATORVASTATIN CA 80 MG TABLET (FP) PO SCH (22:30)
[2017-09-28] MEDS ORDERED: ATORVASTATIN CA 80 MG TABLET (FP) ONE (22:31)
[2017-09-28] MEDS: HEPARIN NA (PORCINE) 5,000 UNITS/ML 1ML VIAL SQ SCH (22:45)
[2017-09-28] MEDS: RANOLAZINE E.R. 500 MG TABLET (FP) PO SCH (22:52)
--- NOTE | 2017-09-28 23:12 | EKG ---
Test Reason : Blood Pressure : / mmHG Vent. Rate : 067 BPM Atrial Rate : 067 BPM P-R Int : 182 ms QRS Dur : 124 ms QT Int : 444 ms P-R-T Axes : 080 037 118 degrees QTc Int : 469 ms NORMAL SINUS RHYTHM SEPTAL INFARCT (CITED ON OR BEFORE 19-JUN-2017) T WAVE ABNORMALITY, CONSIDER LATERAL ISCHEMIA ABNORMAL ECG WHEN COMPARED WITH ECG OF 20-JUN-2017 13:45, NO SIGNIFICANT CHANGE WAS FOUND Confirmed by ARIN PARDO MD ([id number]) on 09/28/2017 11:11:33 PM Referred By: Confirmed By:ARIN PARDO MD
[2017-09-29 02:59] VITALS: BMI 40.7
[2017-09-29] MEDS ORDERED: INSULIN DETEMIR 100 UNITS/ML MDV SQ SCH ×2 (07:00→22:00)
[2017-09-29] MEDS: INSULIN DETEMIR 100 UNITS/ML MDV SQ SCH (07:01)
[2017-09-29] MEDS: HEPARIN NA (PORCINE) 5,000 UNITS/ML 1ML VIAL SQ SCH ×3 (07:01→21:00)
[2017-09-29] MEDS: INSULIN SLIDING SCALE (NOVOLOG) 1 VIAL SQ SCH ×4 (07:02→21:11)
[2017-09-29 07:06] LABS: HEMATOCRIT 32.5 % (35.4-49); HEMOGLOBIN 11.1 GM/dL (11.7-16.9); MCH 30.1 pg (25.7-33.7); MEAN CELL VOLUME 88.6 fl (80-96); MEAN PLT VOLUME 7.6 fl (7.5-11.1); PLATELET COUNT 208 K/MM3 (134-434); RBC 3.67 M/mm3 (4.00-5.60); RDW 14.6 % (11.9-15.9)
[2017-09-29 07:27] LABS: ANION GAP 13 (8-16); BLOOD UREA NITROGEN 76 mg/dL (7-18); CALCIUM 8.3 mg/dL (8.5-10.1); CHLORIDE 101 mmol/L (98-107); CO2 23 mmol/L (21-32); CREATININE 4.1 mg/dL (0.7-1.3); MAGNESIUM 1.8 mg/dL (1.8-2.4); PHOSPHOROUS 4.7 mg/dL (2.5-4.9); POTASSIUM 4.4 mmol/L (3.5-5.1); SODIUM 137 mmol/L (136-145)
[2017-09-29 07:31] LABS: GLUCOSE,RANDOM 334 mg/dL (74-106)
[2017-09-29] MEDS ORDERED: PT OWN MED DRAWER 7, Y5N ONE (09:07)
[2017-09-29] MEDS: RANOLAZINE E.R. 500 MG TABLET (FP) PO SCH ×2 (09:19→21:00)
[2017-09-29] MEDS: RANITIDINE HCL 150 MG TABLET (FP) PO SCH (09:19)
[2017-09-29] MEDS: DOCUSATE SODIUM 100 MG CAPSULE (FP) PO SCH ×2 (09:20→21:00)
[2017-09-29] MEDS: ASPIRIN 81 MG CHEWABLE TABLETS PO SCH (09:20)
[2017-09-29] MEDS: CLOPIDOGREL BISULFATE 75 MG TABLET (FP) PO SCH (09:20)
[2017-09-29] MEDS: CARVEDILOL 25 MG TABLET (FP) PO SCH (09:20)
[2017-09-29] MEDS: ISOSORBIDE MONONITRATE 30 MG TAB.SR.24H (FP) PO SCH (09:20)
[2017-09-29] MEDS ORDERED: SACUBITRIL/VALSARTAN 49 MG-51 MG TABLET PO SCH (10:00)
[2017-09-29] MEDS: SACUBITRIL/VALSARTAN 97 MG-103 MG TABLET PO SCH (11:00)
[2017-09-29] MEDS: amLODIPine BESYLATE 5 MG TABLET (FP) PO SCH (11:56)
[2017-09-29] MEDS ORDERED: cloNIDine-TTS 0.3 MG /24 HRS PATCH.TDWK TD SCH (12:00)
[2017-09-29] MEDS ORDERED: Insulin (LOG) Aspart 100 UNITS/ML VIAL SQ ONE (12:00)
--- NOTE | 2017-09-29 12:33 | CON.CARD ---
Consult Consult Specialty:: Cardiology Referred by:: Hospitalist Reason for Consultation:: Cardiac evaluation - History of Present Illness Chief Complaint: Dizziness History of Present Illness: Patient is a 56 year old male well known to our service (follows Dr. Bridgett Mullen) with underlying CAD, OR s/p CABG, PCI/stent, ICD implant (2007), hypertension, hypercholesterolemia, Insulin requiring diabetes mellitus and gout who presents with complaints of dizziness. He denies chest pain or shortness of breath. He was given increased dose of Entresto as outpatient ( given by Dr. Mullen) and Clonidine patch was stopped. Dizziness worsened which prompted him to come into the hospital. He denies fever or chills. He denies paroxysmal nocturnal dyspnea or orthopnea. He denies headache. No syncopal episode. Entresto dose was reduced and Clonidine patch was restarted during this hospitalization. 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 History of Recent Travel: No Home Medications - Allergies Allergies/Adverse Reactions: Allergies Allergy/AdvReac Type Severity Reaction Status Date / Time No Known Allergies Allergy Verified 09/28/17 10:34 - Home Medications Home Medications: Ambulatory Orders Atorvastatin Ca [Lipitor] 80 mg PO HS 07/13/13 Carvedilol Phosphate [Coreg Cr] 25 mg PO DAILY 07/13/13 Clopidogrel Bisulfate [Plavix -] 75 mg PO DAILY 07/13/13 Ranolazine [Ranexa] 500 mg PO BID 07/13/13 Ranitidine [Zantac -] 150 mg PO DAILY 06/19/17 Insulin (Levemir) [Levemir Vial] 25 unit SQ ACBK 06/20/17 Clonidine Patch [Catapres Tts Patch -] 0.3 mg TD WEEKLY 06/21/17 Insulin (LOG) Aspart [NovoLOG -] 0 units SQ ACHS 06/21/17 Isosorbide Mononitrate [Imdur -] 30 mg PO DAILY #30 tab 06/23/17 Aspirin [ASA -] 81 mg PO DAILY 09/28/17 Ergocalciferol (Vitamin D2) [Vitamin D2] 50,000 unit PO DAILY 09/28/17 Febuxostat [Uloric -] 80 mg PO DAILY 09/28/17 Nitroglycerin [Nitrostat] 0.4 mg SL PRN PRN 09/28/17 Sacubitril/Valsartan [Entresto 24 mg-26 mg Tablet] 4 each PO ASDIR 09/28/17 Amlodipine Besylate 5 mg PO DAILY 09/29/17 Entresto 49 mg-51 mg Tablet 2 tab PO BID 09/29/17 Reva-3 Acid Ethyl Esters 1 grams PO BID 09/29/17 Torsemide 1 tab PO DAILY 09/29/17 Family Disease History - Family Disease History Family Disease History: Diabetes: Mother (), Brother, Heart Disease: Mother, Brother Review of Systems - Review of Systems Constitutional: denies: Chills, Fever Cardiovascular: denies: Chest Pain, Palpitations, Shortness of Breath Respiratory: denies: Cough, Hemoptysis, Orthopnea, PND, SOB, SOB on Exertion, Wheezing Gastrointestinal: denies: Abdominal Pain, Constipation, Diarrhea, Melena, Nausea , Rectal Bleeding, Vomiting Musculoskeletal: denies: Joint Pain Neurological: reports: Dizziness. denies: Headache, Seizure, Syncope Vital Signs: Vital Signs Temperature 98.5 F 09/29/17 08:00 Pulse Rate 90 09/29/17 08:00 Respiratory Rate 20 09/29/17 10:00 Blood Pressure 155/89 09/29/17 10:00 O2 Sat by Pulse Oximetry (%) 98 09/29/17 08:00 Constitutional: Yes: No Distress Eyes: Yes: PERRL HENT: Yes: Atraumatic Neck: Yes: Supple Respiratory: Yes: CTA Bilaterally Gastrointestinal: Yes: Normal Bowel Sounds, Soft, Abdomen, Obese. No: Tenderness Cardiovascular: Yes: Regular Rate and Rhythm JVD: No Carotid Bruit: No PMI: Non-Displaced Heart Sounds: Yes: S1, S2. No: Gallop Murmur: Yes: Systolic Murmur (LOAN), Grade 1 Edema: No - Other Data Labs, Other Data: CBC, BMP 09/29/17 05:35 09/29/17 05:35 Troponin, BNP 09/28/17 09/28/17 09/28/17 12:25 12:25 17:15 Troponin I 0.42 H D 0.40 H B-Natriuretic Peptide 3492.34 H 09/29/17 01:00 Troponin I 0.28 H D B-Natriuretic Peptide Laboratory Results - last 24 hr 09/28/17 09/28/17 09/28/17 12:25 12:25 12:25 WBC 8.5 D RBC 3.78 L Hgb 11.4 L D Hct 33.2 L MCV 87.8 MCH 30.2 MCHC 34.4 RDW 14.5 Plt Count 253 D MPV 6.9 L Neutrophils % 73.7 Lymphocytes % 15.4 Monocytes % 8.8 Eosinophils % 1.2 Basophils % 0.9 Sodium 135 L Potassium 4.6 Chloride 102 Carbon Dioxide 24 Anion Gap 9 BUN 75 H Creatinine 4.3 H Creat Clearance w eGFR 14.41 POC Glucometer Random Glucose 146 H D Calcium 8.1 L Phosphorus Magnesium Total Bilirubin 0.4 D AST 16 ALT 26 Alkaline Phosphatase 136 H Creatine Kinase 86 Troponin I 0.42 H D B-Natriuretic Peptide 3492.34 H Total Protein 7.6 Albumin 3.4 Urine Color Urine Appearance Urine pH Ur Specific [place] Urine Protein Urine Glucose (UA) Urine Ketones Urine Blood Urine Nitrite Urine Bilirubin Urine Urobilinogen Ur Leukocyte Esterase Urine WBC (Auto) Urine RBC (Auto) Ur Epithelial Cells Urine Bacteria Hyaline Casts Urine Mucus 09/28/17 09/28/17 09/28/17 14:50 16:20 17:15 WBC RBC Hgb Hct MCV MCH MCHC RDW Plt Count MPV Neutrophils % Lymphocytes % Monocytes % Eosinophils % Basophils % Sodium Potassium Chloride Carbon Dioxide Anion Gap BUN Creatinine Creat Clearance w eGFR POC Glucometer [phone] Random Glucose Calcium Phosphorus Magnesium Total Bilirubin AST ALT Alkaline Phosphatase Creatine Kinase 73 Troponin I 0.40 H B-Natriuretic Peptide Total Protein Albumin Urine Color Yellow Urine Appearance Clear Urine pH 5.0 Ur Specific [place] 1.011 Urine Protein 3+ H Urine Glucose (UA) 1+ H Urine Ketones Negative Urine Blood Negative Urine Nitrite Negative Urine Bilirubin Negative Urine Urobilinogen Negative Ur Leukocyte Esterase Negative Urine WBC (Auto) 1 Urine RBC (Auto) 2 Ur Epithelial Cells Rare Urine Bacteria Rare Hyaline Casts 13 Urine Mucus Rare 09/28/17 09/29/17 09/29/17 22:26 01:00 05:35 WBC 7.0 RBC 3.67 L Hgb 11.1 L Hct 32.5 L MCV 88.6 MCH 30.1 MCHC 34.0 RDW 14.6 Plt Count 208 MPV 7.6 D Neutrophils % Lymphocytes % Monocytes % Eosinophils % Basophils % Sodium Potassium Chloride Carbon Dioxide Anion Gap BUN Creatinine Creat Clearance w eGFR POC Glucometer [phone] Random Glucose Calcium Phosphorus Magnesium Total Bilirubin AST ALT Alkaline Phosphatase Creatine Kinase Troponin I 0.28 H D B-Natriuretic Peptide Total Protein Albumin Urine Color Urine Appearance Urine pH Ur Specific [place] Urine Protein Urine Glucose (UA) Urine Ketones Urine Blood Urine Nitrite Urine Bilirubin Urine Urobilinogen Ur Leukocyte Esterase Urine WBC (Auto) Urine RBC (Auto) Ur Epithelial Cells Urine Bacteria Hyaline Casts Urine Mucus 09/29/17 09/29/17 09/29/17 05:35 06:53 11:21 WBC RBC Hgb Hct MCV MCH MCHC RDW Plt Count MPV Neutrophils % Lymphocytes % Monocytes % Eosinophils % Basophils % Sodium 137 Potassium 4.4 Chloride 101 Carbon Dioxide 23 Anion Gap 13 BUN 76 H Creatinine 4.1 H Creat Clearance w eGFR POC Glucometer 372 481 Random Glucose 334 H* D Calcium 8.3 L Phosphorus 4.7 D Magnesium 1.8 Total Bilirubin AST ALT Alkaline Phosphatase Creatine Kinase Troponin I B-Natriuretic Peptide Total Protein Albumin Urine Color Urine Appearance Urine pH Ur Specific [place] Urine Protein Urine Glucose (UA) Urine Ketones Urine Blood Urine Nitrite Urine Bilirubin Urine Urobilinogen Ur Leukocyte Esterase Urine WBC (Auto) Urine RBC (Auto) Ur Epithelial Cells Urine Bacteria Hyaline Casts Urine Mucus Imaging - Results Chest X-ray: Report Reviewed (Cardiomegaly) EKG: Report Reviewed (Sinus rhythm with lateral T wave inversion suggests ischemia) Problem List - Problems (1) Chest pain Code(s): R07.9 - CHEST PAIN, UNSPECIFIED Qualifiers: Chest pain type: unspecified Qualified Code(s): R07.9 - Chest pain, unspecified (2) Dizziness Code(s): R42 - DIZZINESS AND GIDDINESS (3) Systolic heart failure Code(s): I50.20 - UNSPECIFIED SYSTOLIC (CONGESTIVE) HEART FAILURE (4) Acute on chronic renal insufficiency Code(s): N28.9 - DISORDER OF KIDNEY AND URETER, UNSPECIFIED; N18.9 - CHRONIC KIDNEY DISEASE, UNSPECIFIED (5) Acute on chronic systolic (congestive) heart failure Code(s): I50.23 - ACUTE ON CHRONIC SYSTOLIC (CONGESTIVE) HEART FAILURE (6) Anemia Code(s): D64.9 - ANEMIA, UNSPECIFIED Qualifiers: Anemia type: unspecified type Qualified Code(s): D64.9 - Anemia, unspecified (7) Aortic valve stenosis Code(s): I35.0 - NONRHEUMATIC AORTIC (VALVE) STENOSIS Qualifiers: Cardiac valve disease etiology: nonrheumatic Qualified Code(s): I35.0 - Nonrheumatic aortic (valve) stenosis (8) CAD (coronary artery disease) Code(s): I25.10 - ATHSCL HEART DISEASE OF [place] CORONARY ARTERY W/O ANG PCTRS Qualifiers: Coronary Disease-Associated Artery/Lesion type: [place] artery [place] vs. transplanted heart: [place] heart Associated angina: without angina Qualified Code(s): I25.10 - Atherosclerotic heart disease of [place] coronary artery without angina pectoris (9) CKD stage 4 due to type 2 diabetes mellitus Code(s): E11.22 - TYPE 2 DIABETES MELLITUS W DIABETIC CHRONIC KIDNEY DISEASE; N18.4 - CHRONIC KIDNEY DISEASE, STAGE 4 (SEVERE) (10) Demand ischemia Code(s): I24.8 - OTHER FORMS OF ACUTE ISCHEMIC HEART DISEASE (11) Diabetes mellitus Code(s): E11.9 - TYPE 2 DIABETES MELLITUS WITHOUT COMPLICATIONS Qualifiers: Diabetes mellitus type: type 2 Diabetes mellitus complication status: without complication (12) HLD (hyperlipidemia) Code(s): E78.5 - HYPERLIPIDEMIA, UNSPECIFIED Qualifiers: Hyperlipidemia type: pure hypercholesterolemia Qualified Code(s): E78.00 - Pure hypercholesterolemia, unspecified (13) HTN (hypertension) Code(s): I10 - ESSENTIAL (PRIMARY) HYPERTENSION Qualifiers: Hypertension type: essential hypertension Qualified Code(s): I10 - Essential (primary) hypertension (14) History of coronary artery stent placement Code(s): Z95.5 - PRESENCE OF CORONARY ANGIOPLASTY IMPLANT AND GRAFT (15) Hx of CABG Code(s): Z95.1 - PRESENCE OF AORTOCORONARY BYPASS GRAFT (16) ICD (implantable cardioverter-defibrillator) in place Code(s): Z95.810 - PRESENCE OF AUTOMATIC (IMPLANTABLE) CARDIAC DEFIBRILLATOR Assessment/Plan 1. Dizziness related to possible hypotension (secondary to increased medication dose) 2. History of acute on chronic LV systolic failure 3. Aortic valve disease - aortic stenosis 4. CAD, history of OR, s/p CABG, PCI/stent - elevated troponin likely demand ischemia 5. Hypertension 6. Hypercholesterolemia 7. Post ICD implant due to low LVEF and CHF 8. CKD 9. Anemia 10. Chest pain syndrome - atypical likely at the ICD implant site PLAN: 1. Currently on Carvedilol, Amlodipine, Clonidine patch and Imdur. Entresti has been held, but may be tried at a lower dose 2. Continue ASA and Plavix 3. Continue Ranexa 4. Continue Lipitor 5. Follow BP and check for orthostasis 6. Cardiac testing was done recently and no need to repeat at this time 7. Trend troponins Further plans are to follow Paras Jensen MD
[2017-09-29] MEDS: FEBUXOSTAT 80 MG TAB PO SCH (12:48)
[2017-09-29] MEDS ORDERED: INSULIN SLIDING SCALE (NOVOLOG) 1 VIAL SQ SCH (13:51)
--- NOTE | 2017-09-29 15:00 | PN ---
Teaching Attending Note Name of Resident: Pilo Ryan ATTENDING PHYSICIAN STATEMENT I saw and evaluated the patient. I reviewed the resident's note and discussed the case with the resident. I agree with the resident's findings and plan as documented. SUBJECTIVE: no fever or chills. has no PC now , describes his cp yesterday as sharp, intermittent CP , over his ICD , lasted for 3 seconds each. OBJECTIVE: NAD . MMM CV: RRR, no 3/6 SM at RUSB, RUSB. no JVD Lungs : CTAB ext no edema abd: obese, NT, ND ,NL BS ASSESSMENT AND PLAN: 56 y/o man with h/o morbid obesity, CAD, TX, HL, CKD, DM , S CHF, ACD, HTN, , and other medical problems who presented with dizziness and L sided sharp CP after medications change 2 weeks prior to presentation 1- Dizziness:likely orthostatis hypotension in setitng of doubling the dose of Entresto. resolved . no suspicion for ACS . 2- Atypical CP, unlikely cardiac, sharp over ICD, interittient lasted 3 seconds. although trop has slightly increased , it might be related to his LIZETT /CKD EKG with no acute ischemic changes s/p CABG, stentig in past , most recent Stress in 06/02 with ischemia which was treated medically cont medical mgt cont coreg , ranexa , ASA , and plavix 3- HTN: recently taken off clonidine patch 2 weeks ago and entresto dose was increased . - resume clonidine patch 0.3 weekly - resume entresto at half the dose in am - cont norvasc , coreg , imdur 4- Lizett o CKD :likely due to increasing dose of Entresto as out p t - base line 3.2-3.8 . - hold Entresto today and resumem tomorrow at half dose 49/51 BID ( instead of 49/51 2 tab BID ) - no signs of fluid overload or volume depletion 5- poorly controlled diabetes, very poor historian with conflicting information about insulin dosing - meds confirmed - levemir 28 units BID , and high dose SSI ( unlikely he is compliant ) - cont levemir BID , and adjusted dose of SSI 6- h/o S CHF: no signs of fluid overload . - resume toresmide 20 daily in am - resume ARB in am , if renal function is stable - cont rest of cardiac meds 7- dispo : hopefully home tomorrow
--- NOTE | 2017-09-29 15:00 | PN ---
Physical Exam: SUBJECTIVE: Patient seen and examined at bedside. sitting in bed in no acute distress, sugar is elevated this morning , get the ISS using at home from his . denies any chest pain, SOB, orthopnea or dispnea. denies any fever, chills , N/V/D/C. OBJECTIVE: Vital Signs Period Temp Pulse Resp BP Sys/Gallo Pulse Ox Last 24 Hr 98.2 F-98.6 F 70-90 16-20 103-167/61-98 98-100 GENERAL:AAOx3 in NAD HEAD: NC/AT , EYES:left eye legal blind cornea white , Right eye Pupils equal, round and reactive to light, extraocular movements intact, sclera anicteric, conjunctiva clear ENT: Moist mucous membranes. NECK: Normal range of motion, supple without lymphadenopathy, JVD, LUNGS: CTA B/L . No wheezes, and no crackles. No accessory muscle use. HEART:RRR,, normal S1 and S2 ,2/6 systolic murmur in LUSB ,No rub or gallop. ABDOMEN: Obese, Soft, nontender, not distended, normoactive bowel sounds, no guarding, no rebound LOWER EXTREMITIES: 2+ pulses, warm, well-perfused. No calf tenderness. No peripheral edema. NEUROLOGICAL: Cranial nerves II-XII intact. Normal speech. PSYCHIATRIC: Cooperative. SKIN: Warm, dry, Laboratory Results - last 24 hr 09/28/17 09/28/17 09/28/17 14:50 16:20 17:15 WBC RBC Hgb Hct MCV MCH MCHC RDW Plt Count MPV Sodium Potassium Chloride Carbon Dioxide Anion Gap BUN Creatinine POC Glucometer [phone] Random Glucose Hemoglobin A1c % Calcium Phosphorus Magnesium Creatine Kinase 73 Troponin I 0.40 H Urine Color Yellow Urine Appearance Clear Urine pH 5.0 Ur Specific [place] 1.011 Urine Protein 3+ H Urine Glucose (UA) 1+ H Urine Ketones Negative Urine Blood Negative Urine Nitrite Negative Urine Bilirubin Negative Urine Urobilinogen Negative Ur Leukocyte Esterase Negative Urine WBC (Auto) 1 Urine RBC (Auto) 2 Ur Epithelial Cells Rare Urine Bacteria Rare Hyaline Casts 13 Urine Mucus Rare 09/28/17 09/29/17 09/29/17 22:26 01:00 05:35 WBC 7.0 RBC 3.67 L Hgb 11.1 L Hct 32.5 L MCV 88.6 MCH 30.1 MCHC 34.0 RDW 14.6 Plt Count 208 MPV 7.6 D Sodium Potassium Chloride Carbon Dioxide Anion Gap BUN Creatinine POC Glucometer [phone] Random Glucose Hemoglobin A1c % Calcium Phosphorus Magnesium Creatine Kinase Troponin I 0.28 H D Urine Color Urine Appearance Urine pH Ur Specific [place] Urine Protein Urine Glucose (UA) Urine Ketones Urine Blood Urine Nitrite Urine Bilirubin Urine Urobilinogen Ur Leukocyte Esterase Urine WBC (Auto) Urine RBC (Auto) Ur Epithelial Cells Urine Bacteria Hyaline Casts Urine Mucus 09/29/17 09/29/17 09/29/17 05:35 06:53 11:00 WBC RBC Hgb Hct MCV MCH MCHC RDW Plt Count MPV Sodium 137 Potassium 4.4 Chloride 101 Carbon Dioxide 23 Anion Gap 13 BUN 76 H Creatinine 4.1 H POC Glucometer 372 Random Glucose 334 H* D Hemoglobin A1c % 12.0 H D Calcium 8.3 L Phosphorus 4.7 D Magnesium 1.8 Creatine Kinase Troponin I Urine Color Urine Appearance Urine pH Ur Specific [place] Urine Protein Urine Glucose (UA) Urine Ketones Urine Blood Urine Nitrite Urine Bilirubin Urine Urobilinogen Ur Leukocyte Esterase Urine WBC (Auto) Urine RBC (Auto) Ur Epithelial Cells Urine Bacteria Hyaline Casts Urine Mucus 09/29/17 11:21 WBC RBC Hgb Hct MCV MCH MCHC RDW Plt Count MPV Sodium Potassium Chloride Carbon Dioxide Anion Gap BUN Creatinine POC Glucometer 481 Random Glucose Hemoglobin A1c % Calcium Phosphorus Magnesium Creatine Kinase Troponin I Urine Color Urine Appearance Urine pH Ur Specific [place] Urine Protein Urine Glucose (UA) Urine Ketones Urine Blood Urine Nitrite Urine Bilirubin Urine Urobilinogen Ur Leukocyte Esterase Urine WBC (Auto) Urine RBC (Auto) Ur Epithelial Cells Urine Bacteria Hyaline Casts Urine Mucus Active Medications Generic Name Dose Route Start Last Admin Trade Name Freq PRN Reason Stop Dose Admin Amlodipine Besylate 5 mg 09/29/17 11:30 09/29/17 11:56 Norvasc - PO 5 mg DAILY [facility] Administration Aspirin 81 mg 09/29/17 10:00 09/29/17 09:20 Asa - PO 81 mg DAILY [facility] Administration Atorvastatin Calcium 80 mg 09/28/17 22:00 09/28/17 22:30 Lipitor - PO 80 mg HS [facility] Administration Carvedilol 25 mg 09/29/17 10:00 09/29/17 09:20 Coreg - PO 25 mg DAILY [facility] Administration Clonidine HCl 0.3 mg 09/29/17 12:00 09/29/17 12:48 Catapres Tts Patch - TD 0.3 mg Tu@1000 [facility] Administration Clopidogrel Bisulfate 75 mg 09/29/17 10:00 09/29/17 09:20 Plavix - PO 75 mg DAILY [facility] Administration Docusate Sodium 100 mg 09/28/17 22:00 09/29/17 09:20 Colace - PO Not Given BID [facility] Ergocalciferol 50,000 unit 09/30/17 10:00 Drisdol - PO We@1000 [facility] Febuxostat 80 mg 09/29/17 11:30 09/29/17 12:48 Uloric - PO 80 mg DAILY [facility] Administration Heparin Sodium (Porcine) 5,000 unit 09/28/17 22:00 09/29/17 13:09 Heparin - SQ 5,000 unit TID [facility] Administration Insulin Aspart 1 vial 09/29/17 16:30 Novolog Vial Sliding Scale - SQ ACHS [facility] Protocol Insulin Detemir 28 units 09/29/17 07:00 09/29/17 07:01 Levemir Vial SQ 28 units ACBK [facility] Administration Insulin Detemir 28 units 09/29/17 22:00 Levemir Vial SQ HS [facility] Isosorbide Mononitrate 30 mg 09/29/17 10:00 09/29/17 09:20 Imdur - PO 30 mg DAILY [facility] Administration Nitroglycerin 0.4 mg 09/28/17 16:07 Nitrostat - SL DAILY PRN PAIN Ranitidine HCl 150 mg 09/29/17 10:00 09/29/17 09:19 Zantac - PO 150 mg DAILY [facility] Administration Ranolazine 500 mg 09/28/17 22:00 09/29/17 09:19 Ranexa - PO 500 mg BID [facility] Administration CBC, BMP 09/29/17 05:35 09/29/17 05:35 ASSESSMENT/PLAN: This is a 56 year old man with a history of CAD, [place], CABG, chronic systolic heart failure, AICD, HTN, hyperlipidemia, , stage 4 CKD, type 2 DM, gout who presented to the ED today with an episode of chest pain at rest that resolved with SL NTG, and dizziness when he got out of bed. He was found to have BP 99/68 , BUN 75, creatinine 4.3, BNP 3492, troponin 0.42. admitted to [facility] for further evaluation #Atypical chest pain unlikely ACS , sharp pain last 3 sec on his ICD area * Trop 0.42 trend (has chronic elevation around 0.9 ) peaked , likely due to CKD * EKG : NO St,T wave changes * continue ASA * CXR cardiac enlargement with no signs of overloaded * continue cardiac monitoring * ECHO 07/03: LV systolic dysfunction with mild * Stress test 07/03: with anterior ischemic defect, inferior, infero-lateral defect infarct with avani-infarct ischemia, severe LV dysfunction with LVEF of 27 % * cardiology consult * cont home nitrostat 0.4mg sl prn and renexa 500mg po bod for chest pain #Dizziness: * most likely dehydrated vs med SE due to increasing Entresto dose * check orthostatic BP * gentle hydration NS 75mls/hr 1 bag only # HECTOR on CKD stage 4 likely due to volume depletion vs Meds SE (Entresto) * BUN/CR 75/4.3 , monitor base line around 3.2 * gentle hydration NS @ 75 CC/hr * hold entresto today , resume tomorrow on low dose * # H/O CAD s/p CABG, s/p stent x1 , SD * Continue ASA 81 mg po daily * Carvedilol cr 25 mg po daily * Plavix 75mg daily * Ranexa 500 BID * cont imdur 30mg chaparro, Amlodipine 5 mg po daily # HTN * low on admission 99/68 improved to 123/70 * continue home meds coreg 25mg po daily, clonidine 0.3 patch weekly , Imdur 30 mg po daily, Amlodipin 5mg po daily ,hold Entresto , # chronic systolic CHF in no acute exacerbation * elevated BNP around 3000 * no signs of volume overload; lungs clear; not sob; no edema * CXR with cardiomegaly; unchanged from previous * cont home diuretic meds tomorrow * last ECHO 06/22/17 : LV systolic dysfunction , , * Stress test positive with anterior ischemic defect, inferior, infero-lateral defect infarct with avani-infarct ischemia, severe LV dysfunction with LVEF of 27 % * resume torsemid 20 mg po daily in AM * resume Entresto in AM if kidney function improved. # HLD * continue Lipitor 80 mg po HS # IDDM, uncontrolled , non compliant , poor historian with different stories about dose of insulin * hold oral meds * ISS pt own adjusted * cont Levemir 28 BID per pt * Diabetic diet * last HGbA1c 9.2 , repeat * repeat A1c # H/O Gout , stable * continue using home meds Febuxostat # FEN * F: gently hydration 1L NS * E: elevated BUN /CR , monitor * N: low sodium,diabetic diet # Proph * DVT: cont plavix 75 mg daily * GI : no needed for now # Dispo * Admit to tele obs * possible dc home tomorrow Visit type - Emergency Visit Emergency Visit: Yes ED Registration Date: 09/28/17 Care time: The patient presented to the Emergency Department on the above date and was hospitalized for further evaluation of their emergent condition. - New Patient This patient is new to me today: No - Critical Care Critical Care patient: No
--- NOTE | 2017-09-29 15:13 | CONSULT ---
Consult - text type - Consultation Consultation Note: Renal Consult for CKD/Worsening BUN/Cr This is a 56 year old gentleman with PMhx of CKD Stage 4 (baseline Cr in mid 3s) , CAD s/p CABG, Hypertension, HLD, CHF, DM who presented with complaints of chest pain and dizziness with Cr of 4.3. last outpatient Cr was 3.5 on 2017. Pt with recent change in his Entresto Dose by cardiology. Denies any NSAID use, contrast exposure. No flank pain. Making urine. No hematuria. No further CP since admssion. No SOB, Abd pain, N/V/D. No recent Abx use. no rash. PMhx: as above Allergies: NKDA Family Hx: NC Social Hx: No T/A/D ROS: as per HPI Home Medications Medication Instructions Recorded Atorvastatin Ca [Lipitor] 80 mg PO HS 07/13/13 Carvedilol Phosphate [Coreg Cr] 25 mg PO DAILY 07/13/13 Clopidogrel Bisulfate [Plavix -] 75 mg PO DAILY 07/13/13 Ranolazine [Ranexa] 500 mg PO BID 07/13/13 Ranitidine [Zantac -] 150 mg PO DAILY 06/19/17 Insulin (Levemir) [Levemir Vial] 25 unit SQ ACBK 06/20/17 Clonidine Patch [Catapres Tts 0.3 mg TD WEEKLY 06/21/17 Patch -] Insulin (LOG) Aspart [NovoLOG -] 0 units SQ ACHS 06/21/17 Isosorbide Mononitrate [Imdur -] 30 mg PO DAILY #30 tab 06/23/17 Aspirin [ASA -] 81 mg PO DAILY 09/28/17 Ergocalciferol (Vitamin D2) 50,000 unit PO DAILY 09/28/17 [Vitamin D2] Febuxostat [Uloric -] 80 mg PO DAILY 09/28/17 Nitroglycerin [Nitrostat] 0.4 mg SL PRN PRN 09/28/17 Sacubitril/Valsartan [Entresto 24 1 each PO BID 09/28/17 mg-26 mg Tablet] Amlodipine Besylate 5 mg PO DAILY 09/29/17 Entresto 49 mg-51 mg Tablet 1 tab PO BID 09/29/17 [place]-3 Acid Ethyl Esters 1 grams PO BID 09/29/17 Torsemide 1 tab PO DAILY 09/29/17 Vital Signs Temperature 98.2 F 09/29/17 14:00 Pulse Rate 80 09/29/17 14:00 Respiratory Rate 20 09/29/17 14:00 Blood Pressure 140/82 09/29/17 14:00 O2 Sat by Pulse Oximetry (%) 98 09/29/17 08:00 Intake & Output 09/26/17 09/27/17 09/28/17 09/29/17 23:59 23:59 23:59 23:59 Intake Total 200 645 Balance 200 645 Weight 128.82 kg 128.82 kg NAD awake and alert neck supple, no JVD, MMM RRR, No M/R CTA, no rales soft Obese, NT/ND trace LE edema, no clubbing or cyanosis no focal neuro defects CBC, BMP 09/29/17 05:35 09/29/17 05:35 Laboratory Tests 09/28/17 09/29/17 09/29/17 14:50 05:35 05:35 MCV 88.6 Hemoglobin A1c % Calcium 8.3 L Phosphorus 4.7 D Magnesium 1.8 Urine Protein 3+ H Urine Glucose (UA) 1+ H 09/29/17 11:00 MCV Hemoglobin A1c % 12.0 H D Calcium Phosphorus Magnesium Urine Protein Urine Glucose (UA) Current Medications Amlodipine Besylate (Norvasc -) 5 mg PO DAILY [facility] Last Admin: 09/29/17 11:56 Dose: 5 mg Aspirin (Asa -) 81 mg PO DAILY [facility] Last Admin: 09/29/17 09:20 Dose: 81 mg Atorvastatin Calcium (Lipitor -) 80 mg PO HS [facility] Last Admin: 09/28/17 22:30 Dose: 80 mg Carvedilol (Coreg -) 25 mg PO DAILY [facility] Last Admin: 09/29/17 09:20 Dose: 25 mg Clonidine HCl (Catapres Tts Patch -) 0.3 mg TD Tu@1000 [facility] Last Admin: 09/29/17 12:48 Dose: 0.3 mg Clopidogrel Bisulfate (Plavix -) 75 mg PO DAILY [facility] Last Admin: 09/29/17 09:20 Dose: 75 mg Docusate Sodium (Colace -) 100 mg PO BID [facility] Last Admin: 09/29/17 09:20 Dose: Not Given Ergocalciferol (Drisdol -) 50,000 unit PO We@1000 [facility] Febuxostat (Uloric -) 80 mg PO DAILY [facility] Last Admin: 09/29/17 12:48 Dose: 80 mg Heparin Sodium (Porcine) (Heparin -) 5,000 unit SQ TID [facility] Last Admin: 09/29/17 13:09 Dose: 5,000 unit Insulin Aspart (Novolog Vial Sliding Scale -) 1 vial SQ ACHS [facility] PRN Reason: Protocol Insulin Detemir (Levemir Vial) 28 units SQ ACBK [facility] Last Admin: 09/29/17 07:01 Dose: 28 units Insulin Detemir (Levemir Vial) 28 units SQ HS [facility] Isosorbide Mononitrate (Imdur -) 30 mg PO DAILY [facility] Last Admin: 09/29/17 09:20 Dose: 30 mg Nitroglycerin (Nitrostat -) 0.4 mg SL DAILY PRN PRN Reason: PAIN Ranitidine HCl (Zantac -) 150 mg PO DAILY [facility] Last Admin: 09/29/17 09:19 Dose: 150 mg Ranolazine (Ranexa -) 500 mg PO BID [facility] Last Admin: 09/29/17 09:19 Dose: 500 mg Torsemide (Demadex -) 20 mg PO DAILY [facility] 56 year old gentleman with PMhx of CKD Stage 4 (baseline Cr in mid 3s), CAD s/p CABG, Hypertension, HLD, CHF, DM who presented with complaints of chest pain and dizziness with Cr of 4.3. #CKD stage 4 with worsening of BUN/Cr Elevated Cr likely due to incresed entresto dose (contains valsartan) and relative hypotension Cr now improved from 4.3 to 4.1 no symptoms to suggest obstruction no acute indication for MEETING MANAGER #Chest Pain no resolved cardiology following #Dizziness no resolved #Hx of HF no evidence of acute CHF #Hypertension BP acceptable on current meds Pt stable for discharge from renal perspective. Can follow up with Dr. Guevara and have repeat labs Thank you for this referral Will follow Jose Manuel Pendleton DO
[2017-09-29 20:37] LABS: ANION GAP 11 (8-16); BLOOD UREA NITROGEN 67 mg/dL (7-18); CALCIUM 7.5 mg/dL (8.5-10.1); CHLORIDE 100 mmol/L (98-107); CO2 23 mmol/L (21-32); CREATININE 3.9 mg/dL (0.7-1.3); POTASSIUM 4.5 mmol/L (3.5-5.1); SODIUM 134 mmol/L (136-145)
[2017-09-29 20:45] LABS: GLUCOSE,RANDOM 381 mg/dL (74-106)
[2017-09-29] MEDS: ATORVASTATIN CA 80 MG TABLET (FP) PO SCH (21:00)
[2017-09-29] MEDS ORDERED: INSULIN (NOVOLOG) ASPART 100 UNITS/ML 10ML VIAL SQ ONE (22:27)
--- NOTE | 2017-09-30 05:43 | PN ---
Physical Exam: SUBJECTIVE: Patient seen and examined OBJECTIVE: Vital Signs Period Temp Pulse Resp BP Sys/Gallo Pulse Ox Last 24 Hr 98.1 F-98.5 F 77-90 20-20 126-167/75-98 98-98 GENERAL:AAOx3 in NAD HEAD: NC/AT , EYES:left eye legal blind cornea white , Right eye Pupils equal, round and reactive to light, extraocular movements intact, sclera anicteric, conjunctiva clear ENT: Moist mucous membranes. NECK: Normal range of motion, supple without lymphadenopathy, JVD, LUNGS: CTA B/L . No wheezes, and no crackles. No accessory muscle use. HEART:RRR,, normal S1 and S2 ,2/6 systolic murmur in LUSB ,No rub or gallop. ABDOMEN: Obese, Soft, nontender, not distended, normoactive bowel sounds, no guarding, no rebound LOWER EXTREMITIES: 2+ pulses, warm, well-perfused. No calf tenderness. No peripheral edema. NEUROLOGICAL: Cranial nerves II-XII intact. Normal speech. PSYCHIATRIC: Cooperative. SKIN: Warm, dry, Laboratory Results - last 24 hr 09/29/17 09/29/17 09/29/17 05:35 05:35 06:53 WBC 7.0 RBC 3.67 L Hgb 11.1 L Hct 32.5 L MCV 88.6 MCH 30.1 MCHC 34.0 RDW 14.6 Plt Count 208 MPV 7.6 D Sodium 137 Potassium 4.4 Chloride 101 Carbon Dioxide 23 Anion Gap 13 BUN 76 H Creatinine 4.1 H POC Glucometer 372 Random Glucose 334 H* D Hemoglobin A1c % Calcium 8.3 L Phosphorus 4.7 D Magnesium 1.8 09/29/17 09/29/17 09/29/17 11:00 11:21 16:23 WBC RBC Hgb Hct MCV MCH MCHC RDW Plt Count MPV Sodium Potassium Chloride Carbon Dioxide Anion Gap BUN Creatinine POC Glucometer 481 373 Random Glucose Hemoglobin A1c % 12.0 H D Calcium Phosphorus Magnesium 09/29/17 19:50 WBC RBC Hgb Hct MCV MCH MCHC RDW Plt Count MPV Sodium 134 L Potassium 4.5 Chloride 100 Carbon Dioxide 23 Anion Gap 11 BUN 67 H Creatinine 3.9 H POC Glucometer Random Glucose 381 H* Hemoglobin A1c % Calcium 7.5 L Phosphorus Magnesium Active Medications Generic Name Dose Route Start Last Admin Trade Name Giuliano PRN Reason Stop Dose Admin Amlodipine Besylate 5 mg 09/29/17 11:30 09/29/17 11:56 Norvasc - PO 5 mg DAILY [facility] Administration Aspirin 81 mg 09/29/17 10:00 09/29/17 09:20 Asa - PO 81 mg DAILY [facility] Administration Atorvastatin Calcium 80 mg 09/28/17 22:00 09/29/17 21:00 Lipitor - PO 80 mg HS [facility] Administration Carvedilol 25 mg 09/29/17 10:00 09/29/17 09:20 Coreg - PO 25 mg DAILY [facility] Administration Clonidine HCl 0.3 mg 09/29/17 12:00 09/29/17 12:48 Catapres Tts Patch - TD 0.3 mg Tu@1000 [facility] Administration Clopidogrel Bisulfate 75 mg 09/29/17 10:00 09/29/17 09:20 Plavix - PO 75 mg DAILY [facility] Administration Docusate Sodium 100 mg 09/28/17 22:00 09/29/17 21:00 Colace - PO 100 mg BID [facility] Administration Ergocalciferol 50,000 unit 09/30/17 10:00 Drisdol - PO We@1000 [facility] Febuxostat 80 mg 09/29/17 11:30 09/29/17 12:48 Uloric - PO 80 mg DAILY [facility] Administration Heparin Sodium (Porcine) 5,000 unit 09/28/17 22:00 09/29/17 21:00 Heparin - SQ 5,000 unit TID [facility] Administration Insulin Aspart 1 vial 09/29/17 16:30 09/29/17 21:11 Novolog Vial Sliding Scale - SQ 14 units ACHS [facility] Administration Protocol Insulin Detemir 28 units 09/29/17 07:00 09/29/17 07:01 Levemir Vial SQ 28 units ACBK [facility] Administration Insulin Detemir 28 units 09/29/17 22:00 09/29/17 21:01 Levemir Vial SQ 28 units HS [facility] Administration Isosorbide Mononitrate 30 mg 09/29/17 10:00 09/29/17 09:20 Imdur - PO 30 mg DAILY [facility] Administration Nitroglycerin 0.4 mg 09/28/17 16:07 Nitrostat - SL DAILY PRN PAIN Ranitidine HCl 150 mg 09/29/17 10:00 09/29/17 09:19 Zantac - PO 150 mg DAILY [facility] Administration Ranolazine 500 mg 09/28/17 22:00 09/29/17 21:00 Ranexa - PO 500 mg BID [facility] Administration Torsemide 20 mg 09/30/17 10:00 Demadex - PO DAILY [facility] ASSESSMENT/PLAN: This is a 56 year old man with a history of CAD, MA, CABG, chronic systolic heart failure, AICD, HTN, hyperlipidemia, , stage 4 CKD, type 2 DM, gout who presented to the ED today with an episode of chest pain at rest that resolved with SL NTG, and dizziness when he got out of bed. He was found to have BP 99/68 , BUN 75, creatinine 4.3, BNP 3492, troponin 0.42. admitted to [facility] for further evaluation #Atypical chest pain unlikely ACS , sharp pain last 3 sec on his ICD area * Trop 0.42 trend (has chronic elevation around 0.9 ) peaked , likely due to CKD * EKG : NO St,T wave changes * continue ASA * CXR cardiac enlargement with no signs of overloaded * continue cardiac monitoring * ECHO 07/03: LV systolic dysfunction with mild * Stress test 07/03: with anterior ischemic defect, inferior, infero-lateral defect infarct with avani-infarct ischemia, severe LV dysfunction with LVEF of 27 % * cardiology consult * cont home nitrostat 0.4mg sl prn and renexa 500mg po bod for chest pain #Dizziness: * most likely dehydrated vs med SE due to increasing Entresto dose * check orthostatic BP * gentle hydration NS 75mls/hr 1 bag only # HECTOR on CKD stage 4 likely due to volume depletion vs Meds SE (Entresto) * BUN/CR 75/4.3 , monitor base line around 3.2 * gentle hydration NS @ 75 CC/hr * hold entresto today , resume tomorrow on low dose * # H/O CAD s/p CABG, s/p stent x1 , MA * Continue ASA 81 mg po daily * Carvedilol cr 25 mg po daily * Plavix 75mg daily * Ranexa 500 BID * cont imdur 30mg chaparro, Amlodipine 5 mg po daily # HTN * low on admission 99/68 improved to 123/70 * continue home meds coreg 25mg po daily, clonidine 0.3 patch weekly , Imdur 30 mg po daily, Amlodipin 5mg po daily ,hold Entresto , # chronic systolic CHF in no acute exacerbation * elevated BNP around 3000 * no signs of volume overload; lungs clear; not sob; no edema * CXR with cardiomegaly; unchanged from previous * cont home diuretic meds tomorrow * last ECHO 06/22/17 : LV systolic dysfunction , , * Stress test positive with anterior ischemic defect, inferior, infero-lateral defect infarct with avani-infarct ischemia, severe LV dysfunction with LVEF of 27 % * resume torsemid 20 mg po daily in AM * resume Entresto in AM if kidney function improved. # HLD * continue Lipitor 80 mg po HS # IDDM, uncontrolled , non compliant , poor historian with different stories about dose of insulin * hold oral meds * ISS pt own adjusted * cont Levemir 28 BID per pt * Diabetic diet * last HGbA1c 9.2 , repeat * repeat A1c # H/O Gout , stable * continue using home meds Febuxostat # FEN * F: gently hydration 1L NS * E: elevated BUN /CR , monitor * N: low sodium,diabetic diet # Proph * DVT: cont plavix 75 mg daily * GI : no needed for now # Dispo * Admit to tele obs * possible dc home tomorrow
[2017-09-30] MEDS: INSULIN SLIDING SCALE (NOVOLOG) 1 VIAL SQ SCH ×2 (06:33→11:45)
[2017-09-30] MEDS: HEPARIN NA (PORCINE) 5,000 UNITS/ML 1ML VIAL SQ SCH ×2 (06:33→15:00)
[2017-09-30] MEDS: INSULIN DETEMIR 100 UNITS/ML MDV SQ SCH (06:39)
[2017-09-30] MEDS ORDERED: INSULIN (NOVOLOG) ASPART 100 UNITS/ML 10ML VIAL ONE ×2 (06:51→11:29)
[2017-09-30] MEDS ORDERED: amLODIPine BESYLATE 5 MG TABLET (FP) PO ONE (06:56)
[2017-09-30 07:14] LABS: HEMATOCRIT 32.1 % (35.4-49); MCH 30.3 pg (25.7-33.7); MCHC 34.4 g/dl (32.0-35.9); MEAN CELL VOLUME 88.2 fl (80-96); MEAN PLT VOLUME 7.4 fl (7.5-11.1); PLATELET COUNT 193 K/MM3 (134-434); RBC 3.64 M/mm3 (4.00-5.60); RDW 14.6 % (11.9-15.9); WHITE BLOOD COUNT 5.4 K/mm3 (4.0-10.0)
[2017-09-30 07:42] LABS: CHLORIDE 104 mmol/L (98-107); SODIUM 138 mmol/L (136-145)
[2017-09-30 07:56] LABS: ALK PHOS 130 U/L (45-117); ANION GAP 12 (8-16); BILIRUBIN,TOTAL 0.3 mg/dL (0.2-1.0); BLOOD UREA NITROGEN 71 mg/dL (7-18); CO2 22 mmol/L (21-32); CREATININE 3.4 mg/dL (0.7-1.3); GLUCOSE,RANDOM 222 mg/dL (74-106); SGOT/AST 20 U/L (15-37); SGPT/ALT 24 U/L (12-78); TOT PROT 7.1 g/dl (6.4-8.2)
--- NOTE | 2017-09-30 08:01 | PN ---
Teaching Attending Note Name of Resident: Pilo Ryan ATTENDING PHYSICIAN STATEMENT I saw and evaluated the patient. I reviewed the resident's note and discussed the case with the resident. I agree with the resident's findings and plan as documented. SUBJECTIVE: Patient is feeling better, No acute distress. OBJECTIVE: Vital Signs Temperature 98.3 F 09/30/17 16:00 Pulse Rate 80 09/30/17 16:00 Respiratory Rate 20 09/30/17 16:00 Blood Pressure repeat Blood pressure 165/85 132/81 09/30/17 16:00 O2 Sat by Pulse Oximetry (%) 98 09/30/17 08:00 CBCD WBC 5.4 K/mm3 (4.0-10.0) 09/30/17 05:30 RBC 3.64 M/mm3 (4.00-5.60) L 09/30/17 05:30 Hgb 11.0 GM/dL (11.7-16.9) L 09/30/17 05:30 Hct 32.1 % (35.4-49) L 09/30/17 05:30 MCV 88.2 fl (80-96) 09/30/17 05:30 MCHC 34.4 g/dl (32.0-35.9) 09/30/17 05:30 RDW 14.6 % (11.9-15.9) 09/30/17 05:30 Plt Count 193 K/MM3 (134-434) 09/30/17 05:30 MPV 7.4 fl (7.5-11.1) L 09/30/17 05:30 CMP Sodium 134 mmol/L (136-145) L 09/29/17 19:50 Potassium 4.5 mmol/L (3.5-5.1) 09/29/17 19:50 Chloride 100 mmol/L (98-107) 09/29/17 19:50 Carbon Dioxide 23 mmol/L (21-32) 09/29/17 19:50 Anion Gap 11 (8-16) 09/29/17 19:50 BUN 67 mg/dL (7-18) H 09/29/17 19:50 Creatinine 3.9 mg/dL (0.7-1.3) H 09/29/17 19:50 Creat Clearance w eGFR 14.41 (>60) 09/28/17 12:25 Random Glucose 381 mg/dL (74-106) H* 09/29/17 19:50 Calcium 7.5 mg/dL (8.5-10.1) L 09/29/17 19:50 Total Bilirubin 0.4 mg/dL (0.2-1.0) D 09/28/17 12:25 AST 16 U/L (15-37) 09/28/17 12:25 ALT 26 U/L (12-78) 09/28/17 12:25 Alkaline Phosphatase 136 U/L (45-117) H 09/28/17 12:25 Total Protein 7.6 g/dl (6.4-8.2) 09/28/17 12:25 Albumin 3.4 g/dl (3.4-5.0) 09/28/17 12:25 CARDIAC ENZYMES Creatine Kinase 73 IU/L (39-308) 09/28/17 17:15 Troponin I 0.28 ng/ml (0.00-0.05) H D 09/29/17 01:00 Current Medications Generic Name Dose Route Start Last Admin Trade Name Freq PRN Reason Stop Dose Admin Amlodipine Besylate 5 mg 09/29/17 11:30 09/30/17 09:16 Norvasc - PO 5 mg DAILY [facility] Administration Aspirin 81 mg 09/29/17 10:00 09/30/17 09:16 Asa - PO 81 mg DAILY [facility] Administration Atorvastatin Calcium 80 mg 09/28/17 22:00 09/29/17 21:00 Lipitor - PO 80 mg HS [facility] Administration Carvedilol 25 mg 09/30/17 22:00 Coreg - PO BID [facility] Clonidine HCl 0.3 mg 09/29/17 12:00 09/29/17 12:48 Catapres Tts Patch - TD 0.3 mg Tu@1000 [facility] Administration Clopidogrel Bisulfate 75 mg 09/29/17 10:00 09/30/17 09:16 Plavix - PO 75 mg DAILY [facility] Administration Docusate Sodium 100 mg 09/28/17 22:00 09/30/17 09:17 Colace - PO 100 mg BID [facility] Administration Ergocalciferol 50,000 unit 09/30/17 10:00 09/30/17 09:16 Drisdol - PO 50,000 unit We@1000 [facility] Administration Febuxostat 80 mg 09/29/17 11:30 09/30/17 09:17 Uloric - PO 80 mg DAILY [facility] Administration Heparin Sodium (Porcine) 5,000 unit 09/28/17 22:00 09/30/17 15:00 Heparin - SQ 5,000 unit TID [facility] Administration Insulin Aspart 0 units 09/30/17 22:00 Novolog SQ HS [facility] Protocol Insulin Aspart 1 vial 09/30/17 16:30 09/30/17 17:09 Novolog Vial Sliding Scale - SQ 18 unit TIDAC [facility] Administration Protocol Insulin Detemir 28 units 09/29/17 07:00 09/30/17 06:39 Levemir Vial SQ 28 units ACBK [facility] Administration Insulin Detemir 28 units 09/29/17 22:00 09/29/17 21:01 Levemir Vial SQ 28 units HS [facility] Administration Isosorbide Mononitrate 30 mg 09/29/17 10:00 09/30/17 09:16 Imdur - PO 30 mg DAILY [facility] Administration Nitroglycerin 0.4 mg 09/28/17 16:07 Nitrostat - SL DAILY PRN PAIN Ranitidine HCl 150 mg 09/29/17 10:00 09/30/17 09:17 Zantac - PO 150 mg DAILY [facility] Administration Ranolazine 500 mg 09/28/17 22:00 09/30/17 09:16 Ranexa - PO 500 mg BID [facility] Administration Torsemide 20 mg 09/30/17 10:00 09/30/17 09:16 Demadex - PO 20 mg DAILY [facility] Administration Home Medications Medication Instructions Recorded Atorvastatin Ca [Lipitor] 80 mg PO HS 07/13/13 Carvedilol Phosphate [Coreg Cr] 25 mg PO DAILY 07/13/13 Clopidogrel Bisulfate [Plavix -] 75 mg PO DAILY 07/13/13 Ranolazine [Ranexa] 500 mg PO BID 07/13/13 Ranitidine [Zantac -] 150 mg PO DAILY 06/19/17 Insulin (Levemir) [Levemir Vial] 25 unit SQ ACBK 06/20/17 Clonidine Patch [Catapres Tts 0.3 mg TD WEEKLY 06/21/17 Patch -] Insulin (LOG) Aspart [NovoLOG -] 0 units SQ ACHS 06/21/17 Isosorbide Mononitrate [Imdur -] 30 mg PO DAILY #30 tab 06/23/17 Aspirin [ASA -] 81 mg PO DAILY 09/28/17 Ergocalciferol (Vitamin D2) 50,000 unit PO DAILY 09/28/17 [Vitamin D2] Febuxostat [Uloric -] 80 mg PO DAILY 09/28/17 Nitroglycerin [Nitrostat] 0.4 mg SL PRN PRN 09/28/17 Sacubitril/Valsartan [Entresto 24 1 each PO BID 09/28/17 mg-26 mg Tablet] Amlodipine Besylate 5 mg PO DAILY 09/29/17 Entresto 49 mg-51 mg Tablet 1 tab PO BID 09/29/17 [place]-3 Acid Ethyl Esters 1 grams PO BID 09/29/17 Torsemide 1 tab PO DAILY 09/29/17 PE: per resident's note ASSESSMENT AND PLAN: 56 y/o man with h/o morbid obesity, CAD, SD, HL, CKD, DM , S CHF, ACD, HTN, , and other medical problems who presented with dizziness and L sided sharp CP after medications change 2 weeks prior to presentation # HTN better controlled now, added Ernestro back to his regimen post discussion with , continue clonidine weekly, norvasc , coreg , imdur. #acute Kidney injury over CKD : discussed with is ok to discharge the patient since back to his baseline, will follow with # Atypical CP: s/p CABG, stentig in past , most recent Stress in 06/02 with ischemia which was treated medically, continue current therapy , continue coreg , ranexa , ASA , and plavix . EKG with no acute ischemic changes . # poorly controlled diabetes, very poor historian with conflicting information about insulin dosing , seen by junior assistant manager that he follows with. follow up in a week period upon discharge. Continue levemir 28 units BID , and high dose SSI ( unlikely he is compliant ), and adjusted dose of SSI , Coverage was changed Diet exercise discussed, Diabetes Education. # Hx of Systolic CHF: no signs of fluid overload . continue toresmide , ARB in am. Patient can be discharged home follow up with junior assistant manager within a week, since needing a close follow up. DVT px: Heparin
[2017-09-30] MEDS ORDERED: PT OWN MED DRAWER 7, Y5N ONE (08:55)
[2017-09-30] MEDS: CARVEDILOL 25 MG TABLET (FP) PO SCH (09:16)
[2017-09-30] MEDS: RANOLAZINE E.R. 500 MG TABLET (FP) PO SCH (09:16)
[2017-09-30] MEDS: amLODIPine BESYLATE 5 MG TABLET (FP) PO SCH (09:16)
[2017-09-30] MEDS: CLOPIDOGREL BISULFATE 75 MG TABLET (FP) PO SCH (09:16)
[2017-09-30] MEDS: ASPIRIN 81 MG CHEWABLE TABLETS PO SCH (09:16)
[2017-09-30] MEDS: ISOSORBIDE MONONITRATE 30 MG TAB.SR.24H (FP) PO SCH (09:16)
[2017-09-30] MEDS: DOCUSATE SODIUM 100 MG CAPSULE (FP) PO SCH (09:17)
[2017-09-30] MEDS: FEBUXOSTAT 80 MG TAB PO SCH (09:17)
[2017-09-30] MEDS: RANITIDINE HCL 150 MG TABLET (FP) PO SCH (09:17)
[2017-09-30] MEDS ORDERED: TORSEMIDE 20 MG TABLET (FP) PO SCH (10:00)
[2017-09-30] MEDS ORDERED: SACUBITRIL/VALSARTAN 24 MG-26 MG TABLET PO SCH (10:00)
[2017-09-30] MEDS ORDERED: ERGOCALCIFEROL (VITAMIN D2) 50,000 UNIT CAPSULE (FP) PO SCH (10:00)
--- NOTE | 2017-09-30 10:56 | PN ---
Progress Note, Physician History of Present Illness: Dizziness resolved with downtitration of antihypertensive agents, but BP now elevated, no events on telemetry. Denies chest pain, dyspnea, palpitations. - Current Medication List Current Medications: Active Medications Amlodipine Besylate (Norvasc -) 5 mg PO DAILY [facility] Last Admin: 09/30/17 09:16 Dose: 5 mg Aspirin (Asa -) 81 mg PO DAILY [facility] Last Admin: 09/30/17 09:16 Dose: 81 mg Atorvastatin Calcium (Lipitor -) 80 mg PO HS [facility] Last Admin: 09/29/17 21:00 Dose: 80 mg Carvedilol (Coreg -) 25 mg PO DAILY [facility] Last Admin: 09/30/17 09:16 Dose: 25 mg Clonidine HCl (Catapres Tts Patch -) 0.3 mg TD Tu@1000 [facility] Last Admin: 09/29/17 12:48 Dose: 0.3 mg Clopidogrel Bisulfate (Plavix -) 75 mg PO DAILY [facility] Last Admin: 09/30/17 09:16 Dose: 75 mg Docusate Sodium (Colace -) 100 mg PO BID [facility] Last Admin: 09/30/17 09:17 Dose: 100 mg Ergocalciferol (Drisdol -) 50,000 unit PO We@1000 [facility] Last Admin: 09/30/17 09:16 Dose: 50,000 unit Febuxostat (Uloric -) 80 mg PO DAILY [facility] Last Admin: 09/30/17 09:17 Dose: 80 mg Heparin Sodium (Porcine) (Heparin -) 5,000 unit SQ TID [facility] Last Admin: 09/30/17 06:33 Dose: 5,000 unit Insulin Aspart (Novolog Vial Sliding Scale -) 1 vial SQ [facility] PRN Reason: Protocol Last Admin: 09/30/17 06:33 Dose: 6 units Insulin Detemir (Levemir Vial) 28 units SQ ACBK [facility] Last Admin: 09/30/17 06:39 Dose: 28 units Insulin Detemir (Levemir Vial) 28 units SQ HS [facility] Last Admin: 09/29/17 21:01 Dose: 28 units Isosorbide Mononitrate (Imdur -) 30 mg PO DAILY [facility] Last Admin: 09/30/17 09:16 Dose: 30 mg Nitroglycerin (Nitrostat -) 0.4 mg SL DAILY PRN PRN Reason: PAIN Ranitidine HCl (Zantac -) 150 mg PO DAILY [facility] Last Admin: 09/30/17 09:17 Dose: 150 mg Ranolazine (Ranexa -) 500 mg PO BID [facility] Last Admin: 09/30/17 09:16 Dose: 500 mg Torsemide (Demadex -) 20 mg PO DAILY [facility] Last Admin: 09/30/17 09:16 Dose: 20 mg - Objective Vital Signs: Vital Signs Temperature 98.4 F 09/30/17 09:00 Pulse Rate 82 09/30/17 09:00 Respiratory Rate 20 09/30/17 09:00 Blood Pressure 177/101 09/30/17 09:00 O2 Sat by Pulse Oximetry (%) 98 09/30/17 08:00 Constitutional: Yes: No Distress, Calm Neck: Yes: Supple Cardiovascular: Yes: Regular Rate and Rhythm Respiratory: Yes: Regular, CTA Bilaterally Gastrointestinal: Yes: Normal Bowel Sounds, Soft, Abdomen, Obese Edema: No Labs: CBC, BMP 09/30/17 05:30 09/30/17 05:30 - ....Imaging EKG: Report Reviewed (Tele: SR no events) Problem List - Problems (1) Dizziness Code(s): R42 - DIZZINESS AND GIDDINESS (2) Acute on chronic renal insufficiency Code(s): N28.9 - DISORDER OF KIDNEY AND URETER, UNSPECIFIED; N18.9 - CHRONIC KIDNEY DISEASE, UNSPECIFIED (3) Anemia Code(s): D64.9 - ANEMIA, UNSPECIFIED Qualifiers: Anemia type: unspecified type Qualified Code(s): D64.9 - Anemia, unspecified (4) Aortic valve stenosis Code(s): I35.0 - NONRHEUMATIC AORTIC (VALVE) STENOSIS Qualifiers: Cardiac valve disease etiology: nonrheumatic Qualified Code(s): I35.0 - Nonrheumatic aortic (valve) stenosis (5) CAD (coronary artery disease) Code(s): I25.10 - ATHSCL HEART DISEASE OF [place] CORONARY ARTERY W/O ANG PCTRS Qualifiers: Coronary Disease-Associated Artery/Lesion type: [place] artery [place] vs. transplanted heart: [place] heart Associated angina: without angina Qualified Code(s): I25.10 - Atherosclerotic heart disease of [place] coronary artery without angina pectoris (6) CKD stage 4 due to type 2 diabetes mellitus Code(s): E11.22 - TYPE 2 DIABETES MELLITUS W DIABETIC CHRONIC KIDNEY DISEASE; N18.4 - CHRONIC KIDNEY DISEASE, STAGE 4 (SEVERE) (7) Demand ischemia Code(s): I24.8 - OTHER FORMS OF ACUTE ISCHEMIC HEART DISEASE (8) Diabetes mellitus Code(s): E11.9 - TYPE 2 DIABETES MELLITUS WITHOUT COMPLICATIONS Qualifiers: Diabetes mellitus type: type 2 Diabetes mellitus complication status: without complication (9) Gout Code(s): M10.9 - GOUT, UNSPECIFIED Qualifiers: Gout site: foot Gout etiology: due to renal impairment Chronicity: acute (10) HLD (hyperlipidemia) Code(s): E78.5 - HYPERLIPIDEMIA, UNSPECIFIED Qualifiers: Hyperlipidemia type: pure hypercholesterolemia Qualified Code(s): E78.00 - Pure hypercholesterolemia, unspecified (11) HTN (hypertension) Code(s): I10 - ESSENTIAL (PRIMARY) HYPERTENSION Qualifiers: Hypertension type: essential hypertension Qualified Code(s): I10 - Essential (primary) hypertension (12) History of coronary artery stent placement Code(s): Z95.5 - PRESENCE OF CORONARY ANGIOPLASTY IMPLANT AND GRAFT (13) Hx of CABG Code(s): Z95.1 - PRESENCE OF AORTOCORONARY BYPASS GRAFT (14) ICD (implantable cardioverter-defibrillator) in place Code(s): Z95.810 - PRESENCE OF AUTOMATIC (IMPLANTABLE) CARDIAC DEFIBRILLATOR (15) Sleep apnea Code(s): G47.30 - SLEEP APNEA, UNSPECIFIED Qualifiers: Sleep apnea type: obstructive Qualified Code(s): G47.33 - Obstructive sleep apnea (adult) (pediatric) (16) Systolic dysfunction without heart failure Code(s): I51.9 - HEART DISEASE, UNSPECIFIED Assessment/Plan 1. Dizziness related to medication associated hypotension (secondary to increased Entresto dose) 2. History of acute on chronic LV systolic failure 3. Aortic valve disease - aortic stenosis 4. CAD, history of [place], s/p CABG, PCI/stent - elevated troponin likely demand ischemia 5. Hypertension 6. Hypercholesterolemia 7. Post ICD implant due to low LVEF and CHF 8. Acute on CKD IV due to hypotension improved 9. Anemia 10. Chest pain syndrome - atypical likely at the ICD implant site 11. Gout 12. OSAS on cpap PLAN: 1. Currently on Carvedilol 25 bid, Amlodipine 5 qd, Clonidine patch and Imdur 30 qd. 2. Continue ASA 81 qd and Plavix 75 qd 3. Continue Ranexa 500 bid 4. Continue Lipitor 80 qhs and Demadex 20 qd 5. Rechallenge with Entresto 24/ bid and observe for tolerability 6. Cardiac testing was done recently and no need to repeat at this time 7. Troponins peaked and downtrending 8. Ambulate, d/c planning
--- NOTE | 2017-09-30 11:03 | EKG ---
Test Reason : Blood Pressure : / mmHG Vent. Rate : 071 BPM Atrial Rate : 071 BPM P-R Int : 182 ms QRS Dur : 122 ms QT Int : 482 ms P-R-T Axes : 053 049 090 degrees QTc Int : 523 ms NORMAL SINUS RHYTHM SEPTAL INFARCT (CITED ON OR BEFORE 19-JUN-2017) ABNORMAL ECG WHEN COMPARED WITH ECG OF 28-SEP-2017 10:39, QUESTIONABLE CHANGE IN INITIAL FORCES OF SEPTAL LEADS Confirmed by MONSERRAT SANCHEZ MD ([id number]) on 09/30/2017 11:03:40 AM Referred By: Confirmed By:MONSERRAT SANCHEZ MD
--- NOTE | 2017-09-30 11:56 | CONSULT ---
Consult Consult Specialty:: Endocrinology Referred by:: Pilo Ryan Reason for Consultation:: HYperglycemia - History of Present Illness Chief Complaint: Dizziness History of Present Illness: This is a 56 year old male with l history of HTN, HLD, CAD, [place] s/p CABG, systolic heart failure, s/p AICD, , CKD, T2DM for about 20 years, on Insulin for >10 years, presented to the emergency room with chest pain and dizziness since the morning. Chest pain was described as sharp, around area of defibrillator, which is chronic for him. He denies numbness, tingling, radiation , arm, jaw pain, n, v, diaphoresis, palpitations. Dizziness was apparent after getting out of bed, it progressed throughout the day and at work. Dose of Entresto was recently increased as per pt. Pt referred for management of hyperglycemia. FS at home 150 to 200 at home. No recent hypoglycemia. Blindness left eye. Occ paresthesia of feet. 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 History of Recent Travel: No Home Medications - Allergies Allergies/Adverse Reactions: Allergies Allergy/AdvReac Type Severity Reaction Status Date / Time No Known Allergies Allergy Verified 09/28/17 10:34 - Home Medications Home Medications: Ambulatory Orders Atorvastatin Ca [Lipitor] 80 mg PO HS 07/13/13 Clopidogrel Bisulfate [Plavix -] 75 mg PO DAILY 07/13/13 Ranolazine [Ranexa] 500 mg PO BID 07/13/13 Ranitidine [Zantac -] 150 mg PO DAILY 06/19/17 Clonidine Patch [Catapres Tts Patch -] 0.3 mg TD WEEKLY 06/21/17 Isosorbide Mononitrate [Imdur -] 30 mg PO DAILY #30 tab 06/23/17 Aspirin [ASA -] 81 mg PO DAILY 09/28/17 Ergocalciferol (Vitamin D2) [Vitamin D2] 50,000 unit PO DAILY 09/28/17 Febuxostat [Uloric -] 80 mg PO DAILY 09/28/17 Nitroglycerin [Nitrostat] 0.4 mg SL PRN PRN 09/28/17 Amlodipine Besylate 5 mg PO DAILY 09/29/17 [place]-3 Acid Ethyl Esters 1 grams PO BID 09/29/17 Torsemide 1 tab PO DAILY 09/29/17 Carvedilol [Coreg -] 25 mg PO BID #60 tablet 09/30/17 Docusate Sodium [Colace -] 100 mg PO BID #30 capsule 09/30/17 Insulin (LOG) Aspart [NovoLOG -] 0 units SQ ACHS #1 unit 09/30/17 Insulin (Levemir) [Levemir Vial] 28 units SQ BID #1 ml 09/30/17 Sacubitril/Valsartan [Entresto 24 mg-26 mg Tablet] 1 each PO BID #60 tablet Family Disease History - Family Disease History Family Disease History: Diabetes: Mother (), Brother, Heart Disease: Mother, Brother Review of Systems - Review of Systems Constitutional: reports: No Symptoms Eyes: reports: Other (Blindness left eye) HENT: reports: No Symptoms Neck: reports: No Symptoms Cardiovascular: reports: Other (dizziness) Respiratory: reports: No Symptoms Gastrointestinal: reports: No Symptoms Genitourinary: reports: No Symptoms Integumentary: reports: No Symptoms Neurological: reports: Dizziness Physical Exam Vital Signs: Vital Signs Temperature 98.4 F 09/30/17 09:00 Pulse Rate 82 09/30/17 09:00 Respiratory Rate 20 09/30/17 09:00 Blood Pressure 177/101 09/30/17 09:00 O2 Sat by Pulse Oximetry (%) 98 09/30/17 08:00 Constitutional: Yes: Well Nourished, No Distress, Calm Eyes: Yes: EOM Intact, Other (opaque sclera left side) HENT: Yes: Atraumatic, Normocephalic Neck: Yes: WNL, Supple, Trachea Midline Cardiovascular: Yes: Regular Rate and Rhythm Respiratory: Yes: Regular, CTA Bilaterally Gastrointestinal: Yes: Normal Bowel Sounds, Soft Musculoskeletal: Yes: WNL Extremities: Yes: WNL Edema: No Neurological: Yes: Alert, Oriented Labs: CBC, BMP 09/30/17 05:30 09/30/17 05:30 Problem List - Problems (1) CKD (chronic kidney disease) stage 2, GFR 60-89 ml/min Code(s): N18.2 - CHRONIC KIDNEY DISEASE, STAGE 2 (MILD) (2) Dizziness Code(s): R42 - DIZZINESS AND GIDDINESS (3) Diabetes mellitus Code(s): E11.9 - TYPE 2 DIABETES MELLITUS WITHOUT COMPLICATIONS Qualifiers: Diabetes mellitus type: type 2 Diabetes mellitus complication status: without complication Assessment/Plan AP Dizziness DM Uncontrolled HTN AICD CKD Continue Levemir 28 BID Change Novolog Coverage Diet exercise discussed Diabetes Education Will F/u
--- NOTE | 2017-09-30 12:32 | PN ---
Progress Note (short form) - Note Progress Note: Renal follow up for HECTOR on CKD Pt seen and examined at the bedside no acute complaints no sob, chest pain, abd pain, N/V/D making urine oral intake is good Vital Signs Temperature 98.4 F 09/30/17 09:00 Pulse Rate 82 09/30/17 09:00 Respiratory Rate 20 09/30/17 09:00 Blood Pressure 177/101 09/30/17 09:00 O2 Sat by Pulse Oximetry (%) 98 09/30/17 08:00 Intake & Output 09/27/17 09/28/17 09/29/17 09/30/17 23:59 23:59 23:59 23:59 Intake Total 200 645 Balance 200 645 Weight 128.82 kg 128.82 kg 125.248 kg NAD awake and alert RRR CTA Obese, NT/ND Trace LE edema CBC, BMP 09/30/17 05:30 09/30/17 05:30 Current Medications Amlodipine Besylate (Norvasc -) 5 mg PO DAILY [facility] Last Admin: 09/30/17 09:16 Dose: 5 mg Aspirin (Asa -) 81 mg PO DAILY [facility] Last Admin: 09/30/17 09:16 Dose: 81 mg Atorvastatin Calcium (Lipitor -) 80 mg PO HS [facility] Last Admin: 09/29/17 21:00 Dose: 80 mg Carvedilol (Coreg -) 25 mg PO BID [facility] Clonidine HCl (Catapres Tts Patch -) 0.3 mg TD Tu@1000 [facility] Last Admin: 09/29/17 12:48 Dose: 0.3 mg Clopidogrel Bisulfate (Plavix -) 75 mg PO DAILY [facility] Last Admin: 09/30/17 09:16 Dose: 75 mg Docusate Sodium (Colace -) 100 mg PO BID [facility] Last Admin: 09/30/17 09:17 Dose: 100 mg Ergocalciferol (Drisdol -) 50,000 unit PO We@1000 [facility] Last Admin: 09/30/17 09:16 Dose: 50,000 unit Febuxostat (Uloric -) 80 mg PO DAILY [facility] Last Admin: 09/30/17 09:17 Dose: 80 mg Heparin Sodium (Porcine) (Heparin -) 5,000 unit SQ TID [facility] Last Admin: 09/30/17 06:33 Dose: 5,000 unit Insulin Aspart (Novolog) 0 units SQ HS [facility] PRN Reason: Protocol Insulin Aspart (Novolog Vial Sliding Scale -) 1 vial SQ TIDAC [facility] PRN Reason: Protocol Insulin Detemir (Levemir Vial) 28 units SQ ACBK [facility] Last Admin: 09/30/17 06:39 Dose: 28 units Insulin Detemir (Levemir Vial) 28 units SQ HS [facility] Last Admin: 09/29/17 21:01 Dose: 28 units Isosorbide Mononitrate (Imdur -) 30 mg PO DAILY [facility] Last Admin: 09/30/17 09:16 Dose: 30 mg Nitroglycerin (Nitrostat -) 0.4 mg SL DAILY PRN PRN Reason: PAIN Ranitidine HCl (Zantac -) 150 mg PO DAILY [facility] Last Admin: 09/30/17 09:17 Dose: 150 mg Ranolazine (Ranexa -) 500 mg PO BID [facility] Last Admin: 09/30/17 09:16 Dose: 500 mg Torsemide (Demadex -) 20 mg PO DAILY [facility] Last Admin: 09/30/17 09:16 Dose: 20 mg 56 year old gentleman with PMhx of CKD Stage 4 (baseline Cr in mid 3s), CAD s/p CABG, Hypertension, HLD, CHF, DM who presented with complaints of chest pain and dizziness with Cr of 4.3. #CKD stage 4 with worsening of BUN/Cr Renal function now improved back to baseline restarted Entresto at lower dose today can follow up with Dr. Guevara as outpatient #Chest Pain no resolved cardiology following #Dizziness no resolved #Hx of HF no evidence of acute CHF #Hypertension continue Amlodipine, Entresto, Coreg, Clonidine goal BP < 140/90 Pt stable for discharge from renal perspective. Can follow up with Dr. Guevara and have repeat labs Jose Manuel Pendleton DO
[2017-09-30 16:01] VITALS: TEMP 98.3
[2017-09-30] MEDS ORDERED: INSULIN SLIDING SCALE (NOVOLOG) 1 VIAL SQ SCH ×2 (16:30)
[2017-09-30 17:35] VITALS: BP 133/81; PULSE 78
--- NOTE | 2017-09-30 17:57 | DS ---
Physical Exam: SUBJECTIVE: Patient seen and examined at bedside. sitting in bed in no acute distress, denies any chest pain, SOB, orthopnea or dispnea. denies any fever, chills, N/V/D/C. OBJECTIVE: Vital Signs Period Temp Pulse Resp BP Sys/Gallo Pulse Ox Last 24 Hr 97.8 F-98.4 F 78-90 18-20 133-183/75-101 98-98 PHYSICAL EXAM GENERAL:AAOx3 in NAD HEAD: NC/AT , EYES:left eye legal blind cornea white , Right eye Pupils equal, round and reactive to light, extraocular movements intact, sclera anicteric, conjunctiva clear ENT: Moist mucous membranes. NECK: Normal range of motion, supple without lymphadenopathy, LUNGS: CTA B/L . No wheezes, and no crackles. No accessory muscle use. HEART:RRR,, normal S1 and S2 ,2/6 systolic murmur in LUSB ,No rub or gallop. ABDOMEN: Obese, Soft, nontender, not distended, normoactive bowel sounds, no guarding, no rebound. LOWER EXTREMITIES: 2+ pulses, warm, well-perfused. No calf tenderness. No peripheral edema. NEUROLOGICAL: no focal deficit . Normal speech.gait not observed. PSYCHIATRIC: Cooperative. SKIN: Warm, dry, LABS Laboratory Results - last 24 hr 09/29/17 09/29/17 09/29/17 19:50 21:10 22:20 WBC RBC Hgb Hct MCV MCH MCHC RDW Plt Count MPV Sodium 134 L Potassium 4.5 Chloride 100 Carbon Dioxide 23 Anion Gap 11 BUN 67 H Creatinine 3.9 H Creat Clearance w eGFR POC Glucometer 453 414 Random Glucose 381 H* Hemoglobin A1c % Calcium 7.5 L Total Bilirubin AST ALT Alkaline Phosphatase Total Protein Albumin 09/30/17 09/30/17 09/30/17 05:30 05:30 05:30 WBC 5.4 RBC 3.64 L Hgb 11.0 L Hct 32.1 L MCV 88.2 MCH 30.3 MCHC 34.4 RDW 14.6 Plt Count 193 MPV 7.4 L Sodium 138 Potassium 4.0 Chloride 104 Carbon Dioxide 22 Anion Gap 12 BUN 71 H Creatinine 3.4 H Creat Clearance w eGFR 18.90 POC Glucometer Random Glucose 222 H D Hemoglobin A1c % 11.2 H D Calcium 9.0 Total Bilirubin 0.3 D AST 20 D ALT 24 Alkaline Phosphatase 130 H Total Protein 7.1 Albumin 3.0 L 09/30/17 09/30/17 09/30/17 05:55 11:11 16:21 WBC RBC Hgb Hct MCV MCH MCHC RDW Plt Count MPV Sodium Potassium Chloride Carbon Dioxide Anion Gap BUN Creatinine Creat Clearance w eGFR POC Glucometer 228 329 320 Random Glucose Hemoglobin A1c % Calcium Total Bilirubin AST ALT Alkaline Phosphatase Total Protein Albumin CBC, BMP 09/30/17 05:30 09/30/17 05:30 HOSPITAL COURSE: Date of Admission:09/28/17 Date of Discharge: 09/30/17 is a 56 year old man with a history of CAD, AL, CABG, chronic systolic heart failure, AICD, HTN, hyperlipidemia, , stage 4 CKD, type 2 DM, gout who presented to the ED today with an episode of chest pain at rest that resolved with SL NTG, and dizziness when he got out of bed. He was found to have BP 99/68, BUN 75, creatinine 4.3, BNP 3492, troponin 0.42. admitted to [facility] for further evaluation .For atypical chest pain unlikely ACS , sharp pain last 3 sec on his ICD area ,Trop 0.42 (has chronic elevation around 0.9 ) peaked , likely due to CKD EKG did not show any St,T wave changes, CXR cardiac enlargement with no signs of overloaded,we continue ASA put him on radiation monitor.ECHO was done on 07/03: LV systolic dysfunction with mild , he has a Stress test done 07/03: with anterior ischemic defect, inferior, infero-lateral defect infarct with avani-infarct ischemia, severe LV dysfunction with LVEF of 27% cardiology was consulted and resume his home meds pt was trested with nitroglycerine 0.4mg sl prn and renexa 500mg po ,cont imdur 30mg [place], Amlodipine 5 mg po daily ,Carvedilol cr 25 mg po bid, ASA 81mg po daily , entresto and torsemide was held due to HECTOR (dose was increased recently).Hector on CKD stage 4 could be from Entresto (has ARB ) vs pre renal azotemia, improved with gentle hydration.BUN/CR 75/4.3 with base line around 3.2 , improved to 73/3.4 on discharged, pt will follow up with search optimization analyst as out pt. Entresto 24-26 mg po BID and torsemid 20 mg po daily was resumed upon discharged. pt also complained of Dizziness,most likely due to dehydration vs med SE due to increasing Entresto dose ,improved with gentle hydration NS 75mls/hr 1 bag only .his blood pressure was low on admission 99/ 68 improved to 123/70 with fluids. and was controlled upon discharged 132/82. pt has a H/O chronic systolic CHF in no acute exacerbation BNP was elevated around 3000 with no signs of volume overload; lungs clear; not sob; no edema and CXR with cardiomegaly; unchanged from previous. pt will continue continue Lipitor 80 mg po HS for HLD.pt has IDDM, uncontrolled , non compliant , poor historian with different stories about dose of insulin , endocrinologisr was consulted who resume his home dose of insulin long acting 28 units BID, and ISS adjusted TID and ISS ACHS.his last A1c 9.2 . was recommended to follow up with his hvac operations technician as out pt . his random glucose was 32 upon discharged.pt is hemodynamically stable ad ready to discharged home with appropriate follow up as out pt with PCP, cardiology and nephrology. Minutes to complete discharge: 40 Discharge Summary Reason For Visit: ATYPICAL CHEST PAIN Current Active Problems CKD (chronic kidney disease) stage 2, GFR 60-89 ml/min (Chronic) Systolic heart failure (Chronic) - Instructions Diet, Activity, Other Instructions: You were admitted to the hospital for chest pain. your are now stable and can follow up treatment as out patient. Please follow up with your data support specialist Shadia Kelly within one week. Please follow up with your primary care physician within 3 days to monitor your blood pressure Please follow up with your search optimization analyst Dr.Mathew Wells within one week Please follow up with Dr.Shrestha Lara the Diabetes doctor within 2 week. You will be using Entresto 24/26 twice daily , continue using Clonidine patch 0.3 weekly, torsemide 20 mg po daily continue Norvasc 5 mg daily, Imdur 30 mg daily ,Coreg 25 mg twice daily, Continue Aspirin 81 mg daily , Plavix 75 mg daily , Lipitor 80 mg daily. Continue Ranexa 500 mg twice daily Continue Nitroglycerin 0.4 mg sub lingual daily as needed follow up with you cardiology to adjust your blood pressure meds if needed start using colace 100 mg twice daily as needed for constipation. Please resume using long acting insulin Lantus 28 units in the morning and 28 units at bed time Please also use the following insulin sliding scale in addition to the previous one three times a day before each meal 81-100 .......0 units 101-150 ........6 units 151-200 .........10 units 201-250 .......... 14 units 251-300 ..........16 units 301-350 ...........18 units >350 ............20 units >400 ............20 and call doctor Please resume using long acting insulin 28 in the morning and 28 units at bed time please using insulin sliding scale Novolog adjusted by at bed time : 101- 150 ........0 units 151-200 ........0 units 201-250 ........ 4 units 251- 300 ........ 6 units 301- 350 ......... 8 units 351-400 ........ 10 units >400 ......... Call MD if you develop shortness of breath, dizziness or your symptoms worsen call 911 or come back to emergency room as soon as possible Referrals: Bridgett Mullen MD [Staff Physician] - 1 Week Chandu Stevenson MD [Staff Physician] - 10/02/17 Priscilla Guevara MD [Staff Physician] - 1 Week Marco Ricketts MD [Staff Physician] - 2 Weeks - Home Medications Comprehensive Discharge Medication List: Ambulatory Orders Atorvastatin Ca [Lipitor] 80 mg PO HS 07/13/13 Clopidogrel Bisulfate [Plavix -] 75 mg PO DAILY 07/13/13 Ranolazine [Ranexa] 500 mg PO BID 07/13/13 Ranitidine [Zantac -] 150 mg PO DAILY 06/19/17 Clonidine Patch [Catapres Tts Patch -] 0.3 mg TD WEEKLY 06/21/17 Isosorbide Mononitrate [Imdur -] 30 mg PO DAILY #30 tab 06/23/17 Aspirin [ASA -] 81 mg PO DAILY 09/28/17 Ergocalciferol (Vitamin D2) [Vitamin D2] 50,000 unit PO DAILY 09/28/17 Febuxostat [Uloric -] 80 mg PO DAILY 09/28/17 Nitroglycerin [Nitrostat] 0.4 mg SL PRN PRN 09/28/17 Amlodipine Besylate 5 mg PO DAILY 09/29/17 [place]-3 Acid Ethyl Esters 1 grams PO BID 09/29/17 Torsemide 1 tab PO DAILY 09/29/17 Carvedilol [Coreg -] 25 mg PO BID #60 tablet 09/30/17 Docusate Sodium [Colace -] 100 mg PO BID #30 capsule 09/30/17 Insulin (LOG) Aspart [NovoLOG -] 0 units SQ ACHS #1 unit 09/30/17 Insulin (Levemir) [Levemir Vial] 28 units SQ BID #1 ml 09/30/17 Sacubitril/Valsartan [Entresto 24 mg-26 mg Tablet] 1 each PO BID #60 tablet This patient is new to me today: No Emergency Visit: Yes ED Registration Date: 09/28/17 Care time: The patient presented to the Emergency Department on the above date and was hospitalized for further evaluation of their emergent condition. Critical Care patient: No - Discharge Referral Referred to [facility] Med [facility] No
[2017-09-30] MEDS ORDERED: Insulin (LOG) Aspart 100 UNITS/ML VIAL SQ SCH (22:00)
[2017-09-30] MEDS ORDERED: CARVEDILOL 25 MG TABLET (FP) PO SCH (22:00)
== END 2017-09-30 19:03 | disposition home or self-care (01) ==
LOC: JER 10:29 → JERBED 14:43 → J4S 23:43
PROVIDERS: ADMIT Internal Medicine; ATTEND Internal Medicine
PROC: 3E013VG Introduction of Insulin into Subcutaneous Tissue, Percutaneous Approach (ICD-10-PCS; principal; 2017-09-28)
PROC: 3E0337Z Introduction of Electrolytic and Water Balance Substance into Peripheral Vein, Percutaneous Approach (ICD-10-PCS; 2017-09-28)
DX: R07.89 Other chest pain (principal); I12.9 Hypertensive chronic kidney disease with stage 1 through stage 4 chronic kidney disease, or unspecified chronic kidney disease; E11.22 Type 2 diabetes mellitus with diabetic chronic kidney disease; E11.65 Type 2 diabetes mellitus with hyperglycemia; N18.4 Chronic kidney disease, stage 4 (severe); Z96.41 Presence of insulin pump (external) (internal); I50.22 Chronic systolic (congestive) heart failure; I50.23 Acute on chronic systolic (congestive) heart failure; I25.10 Atherosclerotic heart disease of native coronary artery without angina pectoris; I25.2 Old myocardial infarction; D64.9 Anemia, unspecified; E78.5 Hyperlipidemia, unspecified; I35.0 Nonrheumatic aortic (valve) stenosis; M10.9 Gout, unspecified; G47.33 Obstructive sleep apnea (adult) (pediatric); N17.9 Acute kidney failure, unspecified; R77.8 Other specified abnormalities of plasma proteins; R42 Dizziness and giddiness; Z95.5 Presence of coronary angioplasty implant and graft; Z95.1 Presence of aortocoronary bypass graft; Z95.810 Presence of automatic (implantable) cardiac defibrillator; Z79.84 Long term (current) use of oral hypoglycemic drugs; Z79.4 Long term (current) use of insulin
CPT/HCPCS: 36415; 71045-TC; 80048; 80053; 81003; 81015; 82550; 82962; 83036; 83735; 83880; 84100; 84484; 85025; 85027; 93005; 93010; 99285-25; G0378; J1644

== ENCOUNTER 2018-06-01 10:52 | Inpatient (IN) | payer BC ==
[2018-06-01] MEDS ORDERED: ONDANSETRON 4 MG/2 ML VIAL IVPUSH ONE (12:01)
[2018-06-01] MEDS ORDERED: SODIUM CHLORIDE 1,000 ML IV STA (12:01)
--- NOTE | 2018-06-01 12:08 | PDOC ---
History of Present Illness - General Chief Complaint: Pain, Acute Stated Complaint: ABDOMINAL PAIN, DIZZINESS Time Seen by Provider: 06/01/18 11:18 History Source: Patient Exam Limitations: No Limitations - History of Present Illness Travel History: No Initial Comments: 06/01/18 12:01 57-year-old male with history of insulin pump diabetes presents to ED with constipation for the past 2 weeks and so started ocrl-tpt-ivrmebt meds including Pepto-Bismol, mag stitch rate and other laxatives with no production of a fall bowel movement. Patient states has had intermittent watery diarrhea since then and has had decreased gas for the past 2 weeks. Patient states did receive an epidural a few days prior to the onset of his constipation secondary to low back pain. Patient denies saddle anesthesia, lower extremity paresthesia or worsening weakness. Patient does complain of left lower quadrant cramping and states has had nausea for the past few days associated with decreased appetite. Patient states last glucose reading this morning was 201 Quality: reports: moderate, cramping Abdominal Pain Onset Location: reports: Q Activities at Onset: reports: none Aggravating Factors: improves with: None Alleviating Factors: improves with: None Past History - Travel Traveled outside of the country in the last 30 days: No - Past Medical History Allergies/Adverse Reactions: Allergies Allergy/AdvReac Type Severity Reaction Status Date / Time No Known Allergies Allergy Verified 06/01/18 11:06 Home Medications: Ambulatory Orders Clopidogrel Bisulfate [Plavix -] 75 mg PO DAILY 07/13/13 Ranolazine [Ranexa] 500 mg PO BID 07/13/13 Ranitidine [Zantac -] 150 mg PO BID 06/19/17 Clonidine Patch [Catapres Tts Patch -] 0.3 mg TD WEEKLY 06/21/17 Aspirin [ASA -] 81 mg PO DAILY 09/28/17 Nitroglycerin [Nitrostat] 0.4 mg SL PRN PRN 09/28/17 Torsemide 1 tab PO DAILY 09/29/17 Carvedilol [Coreg -] 25 mg PO BID #60 tablet 09/30/17 Atorvastatin Ca [Lipitor] 80 mg PO HS 06/01/18 Ergocalciferol (Vitamin D2) [Vitamin D2] 50,000 unit PO WEEKLY 06/01/18 Insulin Lispro [Humalog] 0 unit SQ ASDIR PRN 06/01/18 [place]-3 Fatty Acids [[place]-3] 1,000 mg PO BID 06/01/18 Sacubitril/Valsartan [Entresto 49 mg-51 mg Tablet] 1 each PO BID 06/01/18 Anemia: Yes Asthma: No Cancer: No Cardiac Disorders: Yes (cad,mi Defibrilator) CVA: No COPD: No CHF: Yes Dementia: No Diabetes: Yes (IDDM) GI Disorders: No Disorders: No HTN: Yes Hypercholesterolemia: Yes Liver Disease: No Seizures: No Thyroid Disease: No - Surgical History Cardiac Surgery: Yes (CABG,ICD,CARD STENT X1, DEFIBRILLATOR) GI Surgery: Yes (INSULIN PUMP) Orthopedic Surgery: Yes (left knee arthoscopy) - Suicide/Smoking/Psychosocial Hx Smoking History: Never smoked Hx Alcohol Use: No Drug/Substance Use Hx: No Substance Use Type: None Hx Substance Use Treatment: No Patient Lives Alone: Yes Lives with/in: lives alone Abd/GI Specific PMHX - Complaint Specific PMHX Diverticulitis: Yes (losis) Review of Systems - Review of Systems Able to Perform ROS?: No Constitutional: Yes: Symptoms Reported (generalized), Weakness HEENTM: No: Symptoms Reported Respiratory: No: Symptoms reported Cardiac (ROS): No: Symptoms Reported ABD/GI: Yes: Constipated (initially), Diarrhea (intermittently), Nausea, Abdominal cramping. No: Blood Streaked Bowels, Rectal Bleeding, Vomiting : No: Symptoms Reported Musculoskeletal: No: Symptoms Reported Integumentary: No: Symptoms Reported Neurological: No: Symptoms reported Endocrine: No: Symptoms Reported *Physical Exam - Vital Signs Last Vital Signs Temp Pulse Resp BP Pulse Ox 97.7 F 67 16 169/98 100 06/01/18 11:06 06/01/18 11:06 06/01/18 11:06 06/01/18 11:06 06/01/18 11:06 - Physical Exam General Appearance: Yes: Nourished, Appropriately Dressed. No: Apparent Distress HEENT: positive: EOMI, PARISA, TMs Normal, Pharynx Normal. negative: Pale Conjunctivae Respiratory/Chest: positive: Lungs Clear, Normal Breath Sounds. negative: Respiratory Distress, Accessory Muscle Use Cardiovascular: positive: Regular Rhythm, Regular Rate. negative: Murmur Gastrointestinal/Abdominal: positive: Soft, Decreased BS (x 4), Guarding, Tenderness (llq). negative: Rebound Musculoskeletal: negative: CVA Tenderness Extremity: positive: Normal Capillary Refill. negative: Pedal Edema Integumentary: positive: Normal Color, Warm, Moist Neurologic: positive: Motor Strength 5/5 (ambulatory w/ cane) Heart Score/ECG Review - ECG Intrepretation Rhythm: Regular Rhythm (Sinus rhythm with PAC at 64. Inverted T waves in V5 and V6 Sheen from previous EKG noted September 2017. QTc 460 ms.) ED Treatment Course - LABORATORY CBC & Chemistry Diagram: 06/02/18 06:30 06/02/18 15:15 - RADIOLOGY Radiology Studies Ordered: Category Date Time Status ABDOMEN & PELVIS CT WITH CONTR [CT] Stat CT Scan 06/01/18 12:02 Ordered CHEST X-RAY PORTABLE* [RAD] Stat Radiology 06/01/18 12:01 Ordered Medical Decision Making - Medical Decision Making 06/01/18 12:29 57 year old male with history of diabetes currently on insulin pump presents to ED with constipation for the past 2 weeks after receiving an epidural a few days prior. Patient states is on dxcz-twl-swvoubr laxatives and continues to be constipated only producing small amounts of watery brown stool. Patient has no other complaints at this time except for mild nausea and decreased appetite Patient on exam with decreased bowel sounds throughout with left lower quadrant pain concerning for obstruction versus diverticulitis. Patient ordered for labs including EKG and cardiac profile to rule out ACS along with chest x-ray. Patient is prepping for a CT. 06/01/18 13:31 Laboratory Tests 06/01/18 06/01/18 06/01/18 12:08 12:08 12:08 WBC 13.1 H Hgb 10.6 L Hct 31.3 L MPV 6.8 L Absolute Neuts (auto) 10.7 H PT with INR 13.50 H INR 1.14 H Sodium 139 Potassium 4.7 Chloride 109 H Carbon Dioxide 21 Anion Gap 8 BUN 93 H Creatinine 6.3 H Random Glucose 61 L Lactic Acid Calcium 8.3 L Total Bilirubin 0.5 AST 28 ALT 27 Alkaline Phosphatase 130 H Creatine Kinase 73 Troponin I 0.16 H Total Protein 7.8 Albumin 2.9 L Acetone, Qual 06/01/18 06/01/18 12:08 12:08 WBC Hgb Hct MPV Absolute Neuts (auto) PT with INR INR Sodium Potassium Chloride Carbon Dioxide Anion Gap BUN Creatinine Random Glucose Lactic Acid 1.0 Calcium Total Bilirubin AST ALT Alkaline Phosphatase Creatine Kinase Troponin I Total Protein Albumin Acetone, Qual Negative Patient had copy of his lab work in his bag done at a nearby hospital on the where he went for similar symptoms although he states did not have a CAT scan of his abdomen. Patient had noted a hemoglobin of 10.4 coherent level of 6.18 and a troponin of 0.04. EKG was reviewed and with no acute cardiac findings. Magnesium was added. Insulin pump was suspended and IV fluids with clamped. Patient now ordered for D5 half NS at 75 mL an hour 06/01/18 17:[address] de la cruz and recommending to consult patient's casting machine control board operator Dr. Richard. Abdominal CT shows a 5 mm distal ureter calculus with [id number] hydronephrosis. There is no evidence of right-sided hydronephrosis. in light of patient's elevated creatinine level, 06/01/18 18:[address] Gonzalez casting machine control board operator and is recommending consult he also states patient may have superimposed acute on chronic kidney disease secondary to the hydronephrosis. Will send micro-blog 2 hospitalist 06/01/18 18:11 Spoke to the hospitalist and awaiting callback from urologist. Patient be admitted to [facility] in patient. Consults placed for the above *DC/Admit/Observation/Transfer Diagnosis at time of Disposition: Acute on chronic kidney failure, Renal colic on left side - Discharge Dispostion Decision to Admit order: Yes - Referrals - Patient Instructions - Post Discharge Activity
[2018-06-01 12:35] LABS: BASO % 0.5 % (0-2.0); EOS % 0.8 % (0-4.5); HEMATOCRIT 31.3 % (35.4-49); HEMOGLOBIN 10.6 GM/dL (11.7-16.9); LYMPH % 8.2 % (8-40); MCH 30.2 pg (25.7-33.7); MCHC 33.9 g/dl (32.0-35.9); MEAN CELL VOLUME 88.9 fl (80-96); MEAN PLT VOLUME 6.8 fl (7.5-11.1); MONO % 8.8 % (3.8-10.2); NEUT % 81.7 % (42.8-82.8); PLATELET COUNT 412 K/MM3 (134-434); RBC 3.52 M/mm3 (4.00-5.60); RDW 14.8 % (11.9-15.9); WHITE BLOOD COUNT 13.1 K/mm3 (4.0-10.0)
[2018-06-01] MEDS ORDERED: ONDANSETRON 4 MG/2 ML VIAL ONE (12:40)
[2018-06-01 12:50] LABS: INR 1.14 (0.83-1.09); PROTHROMBIN TIME (PATIENT) 13.5 SEC (9.7-13.0)
[2018-06-01 13:10] LABS: ALBUMIN 2.9 g/dl (3.4-5.0); ALK PHOS 130 U/L (45-117); ANION GAP 8 MMOL/L (8-16); BILIRUBIN,TOTAL 0.5 mg/dL (0.2-1); BLOOD UREA NITROGEN 93 mg/dL (7-18); CALCIUM 8.3 mg/dL (8.5-10.1); CHLORIDE 109 mmol/L (98-107); CO2 21 mmol/L (21-32); CREATININE 6.3 mg/dL (0.55-1.3); GLUCOSE,RANDOM 61 mg/dL (74-106); POTASSIUM 4.7 mmol/L (3.5-5.1); SGOT/AST 28 U/L (15-37); SGPT/ALT 27 U/L (13-61); SODIUM 139 mmol/L (136-145); TOT PROT 7.8 g/dl (6.4-8.2)
[2018-06-01] MEDS ORDERED: DEXTROSE 5%-0.45% SALINE 1,000 ML IV SCH (13:30)
--- NOTE | 2018-06-01 13:31 | PDOC ---
*Physical Exam - Vital Signs Last Vital Signs Temp Pulse Resp BP Pulse Ox 97.7 F 67 16 169/98 100 06/01/18 11:06 06/01/18 11:06 06/01/18 11:06 06/01/18 11:06 06/01/18 11:06 - Physical Exam Comments: 06/01/18 13:29 afebrile abd soft/nd. ttp LLQ, no rebound. ED Treatment Course - LABORATORY CBC & Chemistry Diagram: 06/08/18 07:00 06/08/18 07:15 - ADDITIONAL ORDERS Additional order review: Laboratory Results 06/01/18 06/01/18 06/01/18 12:08 12:08 12:08 PT with INR 13.50 H INR 1.14 H Sodium Potassium Chloride Carbon Dioxide Anion Gap BUN Creatinine Creat Clearance w eGFR Random Glucose Lactic Acid 1.0 Calcium Total Bilirubin AST ALT Alkaline Phosphatase Creatine Kinase Troponin I Total Protein Albumin Acetone, Qual Negative Blood Type Antibody Screen 06/01/18 06/01/18 12:08 12:08 PT with INR INR Sodium 139 Potassium 4.7 Chloride 109 H Carbon Dioxide 21 Anion Gap 8 BUN 93 H Creatinine 6.3 H Creat Clearance w eGFR 9.24 Random Glucose 61 L Lactic Acid Calcium 8.3 L Total Bilirubin 0.5 AST 28 ALT 27 Alkaline Phosphatase 130 H Creatine Kinase 73 Troponin I 0.16 H Total Protein 7.8 Albumin 2.9 L Acetone, Qual Blood Type Cancelled Antibody Screen Cancelled 06/01/18 12:08 RBC 3.52 L MCV 88.9 MCHC 33.9 RDW 14.8 MPV 6.8 L Neutrophils % 81.7 Lymphocytes % 8.2 D Monocytes % 8.8 Eosinophils % 0.8 Basophils % 0.5 - Medications Given in the ED: ED Medications Discontinued Medications Generic Name Dose Route Start Last Admin Trade Name Freq PRN Reason Stop Dose Admin Sodium Chloride 1,000 mls @ 1,000 mls/hr 06/01/18 12:01 06/01/18 12:44 Normal Saline - IV 06/01/18 13:00 1,000 mls/hr ASDIR STA Administration Ondansetron HCl 4 mg 06/01/18 12:01 06/01/18 12:44 Zofran Injection IVPUSH 06/01/18 12:02 4 mg ONCE ONE Administration Medical Decision Making - Medical Decision Making 06/01/18 13:29 57y/o M with LLQ pain and decreased BM for 2 weeks. no f/c, no hematochezia. labs, ua ivf, pain control ctap ekg with chronic changes, baseline trop 0.16 in setting of CRI. *DC/Admit/Observation/Transfer Diagnosis at time of Disposition: Renal colic on left side Acute on chronic kidney failure Qualifiers: Acute renal failure type: unspecified Chronic kidney disease stage: unspecified stage Qualified Code(s): N17.9 - Acute kidney failure, unspecified; N18.9 - Chronic kidney disease, unspecified - Discharge Dispostion Disposition: HOME Condition at time of disposition: Improved - Prescriptions - Referrals - Patient Instructions - Post Discharge Activity
[2018-06-01 13:59] LABS: MAGNESIUM 2.2 mg/dL (1.8-2.4)
--- NOTE | 2018-06-01 17:03 | EKG ---
Test Reason : Blood Pressure : / mmHG Vent. Rate : 064 BPM Atrial Rate : 064 BPM P-R Int : 202 ms QRS Dur : 116 ms QT Int : 446 ms P-R-T Axes : 076 013 146 degrees QTc Int : 460 ms SINUS RHYTHM WITH OCCASIONAL PREMATURE VENTRICULAR COMPLEXES T WAVE ABNORMALITY, CONSIDER INFEROLATERAL ISCHEMIA PROLONGED QT ABNORMAL ECG WHEN COMPARED WITH ECG OF 28-SEP-2017 17:19, PREMATURE VENTRICULAR COMPLEXES ARE NOW PRESENT QT HAS SHORTENED Confirmed by MD LORENA, JESSICA ([id number]) on 06/01/2018 5:02:56 PM Referred By: Confirmed By:JESISCA CARRILLO MD
[2018-06-01 17:27] LABS: URINE APPEARANCE CLEAR; URINE BILIRUBIN NEGATIVE (<2.0 mg/dL); URINE COLOR LTYELLOW; URINE GLUCOSE (UA) 1+ (NEGATIVE); URINE KETONE NEGATIVE (NEGATIVE); URINE LEUK ESTERASE NEGATIVE (NEGATIVE); URINE NITRITE NEGATIVE (NEGATIVE); URINE PROTEIN 2+ (NEGATIVE); URINE UROBILINOGEN NEGATIVE mg/dL (0.2-1.0)
[2018-06-01 17:31] LABS: EPI CELLS RARE /HPF (FEW); URINE MUCUS RARE
[2018-06-01] MEDS ORDERED: HEMOQUE TEST 1 EACH EACH ONE (17:59)
[2018-06-01] MEDS ORDERED: MORPHINE SULFATE 2 MG/ML VIAL IVPUSH PRN (18:47)
[2018-06-01] MEDS ORDERED: ONDANSETRON 4 MG/2 ML VIAL IVPUSH PRN (18:47)
[2018-06-01] MEDS ORDERED: SODIUM CHLORIDE 1,000 ML IV SCH (19:00)
--- NOTE | 2018-06-01 19:12 | PN ---
Teaching Attending Note Name of Resident: Clay Zuleta ATTENDING PHYSICIAN STATEMENT I saw and evaluated the patient. I reviewed the resident's note and discussed the case with the resident. I agree with the resident's findings and plan as documented. SUBJECTIVE: Patient is a 57 year old man with a history of CAD, ID, Cardiac stent, CABG, systolic CHF, AICD, HTN, hyperlipidemia, Aortic Stenosis, stage 4 CKD, IDDM with insulin pump and gout who presents to ER with constipation for the past 2 weeks. He had started tmdf-nzx-dadcqit meds including Pepto-Bismol, mag citrate and other laxatives. Patient states has had intermittent watery diarrhea since then and has had decreased gas for the past 2 weeks. Patient received an epidural a few days prior to the onset of his constipation secondary to low back pain. Patient denies saddle anesthesia, lower extremity paresthesia or worsening weakness. Patient does complain of left lower quadrant cramping and states has had nausea for the past few days associated with decreased appetite. OBJECTIVE: Alert Vital Signs Period Temp Pulse Resp BP Sys/Gallo Pulse Ox Last 24 Hr 97.7 F 64-67 16-18 134-169/84-98 100-100 HEENT: No Jaundice, cloudy left conjunctiva; no discharge, PERRLA, EOMI. Normocephalic, atraumatic. External ears are normal and hearing is grossly intact. No nasal discharge. Neck: Supple, nontender. No palpable adenopathy or thyromegaly. No JVD Chest: Good effort. Clear to auscultation and percussion. Heart: Regular. No S3 or rub; 3/6 LOAN Abdomen: Not distended, soft, LLQ tenderness and no HSM. Insulin pump in place. No rebound or guarding. Normoactive bowel sounds. Ext: Peripheral pulses intact. No leg edema. Skin: Warm and dry. No petechiae, rash or ecchymosis. Neuro: Alert. Oriented x3. CN 2-12 grossly intact. Sensation grossly intact in all four extremities and DTR are symmetric. Current Medications Generic Name Dose Route Start Last Admin Trade Name Freq PRN Reason Stop Dose Admin Atorvastatin Calcium 80 mg 06/01/18 22:00 Lipitor - PO HS CRIS Carvedilol 25 mg 06/01/18 22:00 Coreg - PO BID CRIS Enoxaparin Sodium 40 mg 06/02/18 10:00 Lovenox - SQ DAILY REPLACED BY [facility] Sodium Chloride 1,000 mls @ 50 mls/hr 06/01/18 19:00 Normal Saline - IV 06/02/18 14:59 ASDIR REPLACED BY [facility] Insulin Aspart 1 vial 06/01/18 19:00 Novolog Vial Sliding Scale - SQ TIDAC REPLACED BY [facility] Protocol Morphine Sulfate 1 mg 06/01/18 18:47 Morphine Sulfate IVPUSH Q4H PRN PAIN LEVEL 6-10 Ondansetron HCl 4 mg 06/01/18 18:47 Zofran Injection IVPUSH Q6H PRN NAUSEA Ranitidine HCl 150 mg 06/01/18 22:00 Zantac - PO BID REPLACED BY [facility] Ranolazine 500 mg 06/01/18 22:00 Ranexa - PO BID REPLACED BY [facility] Sacubitril/Valsartan 1 tab 06/01/18 22:00 Entresto 49 Mg-51 Mg Tablet PO BID REPLACED BY [facility] Tamsulosin HCl 0.4 mg 06/01/18 18:59 Flomax - PO DAILY@0830 REPLACED BY [facility] Home Medications Medication Instructions Recorded Clopidogrel Bisulfate [Plavix -] 75 mg PO DAILY 07/13/13 Ranolazine [Ranexa] 500 mg PO BID 07/13/13 Ranitidine [Zantac -] 150 mg PO BID 06/19/17 Clonidine Patch [Catapres Tts 0.3 mg TD WEEKLY 06/21/17 Patch -] Aspirin [ASA -] 81 mg PO DAILY 09/28/17 Nitroglycerin [Nitrostat] 0.4 mg SL PRN PRN 09/28/17 Torsemide 1 tab PO DAILY 09/29/17 Carvedilol [Coreg -] 25 mg PO BID #60 tablet 09/30/17 Atorvastatin Ca [Lipitor] 80 mg PO HS 06/01/18 Ergocalciferol (Vitamin D2) 50,000 unit PO WEEKLY 06/01/18 [Vitamin D2] Insulin Lispro [Humalog] 0 unit SQ ASDIR PRN 06/01/18 [place]-3 Fatty Acids [[place]-3] 1,000 mg PO BID 06/01/18 Sacubitril/Valsartan [Entresto 49 1 each PO BID 06/01/18 mg-51 mg Tablet] Abnormal Lab Results 06/01/18 06/01/18 06/01/18 12:08 12:08 12:08 WBC 13.1 H RBC 3.52 L Hgb 10.6 L Hct 31.3 L MPV 6.8 L Absolute Neuts (auto) 10.7 H PT with INR 13.50 H INR 1.14 H Chloride 109 H BUN 93 H Creatinine 6.3 H Random Glucose 61 L Calcium 8.3 L Alkaline Phosphatase 130 H Troponin I 0.16 H Albumin 2.9 L Urine Protein Urine Glucose (UA) Urine Blood 06/01/18 16:48 WBC RBC Hgb Hct MPV Absolute Neuts (auto) PT with INR INR Chloride BUN Creatinine Random Glucose Calcium Alkaline Phosphatase Troponin I Albumin Urine Protein 2+ H Urine Glucose (UA) 1+ H Urine Blood 1+ H ASSESSMENT AND PLAN: 1. Left ureteral stone and moderate hydronephrosis - Will continue pain control , flomax and gentle hydration. Awaiting urology evaluation. Leukocytosis likely reactive - no other evidence of infection. No antibiotics at this time - will monitor closely. Elevated troponin likely due to CKD and/or demand ischemia. He has had chronic troponin elevation, no chest pain and no new EKG changes of ACS. Will repeat troponin and EKG. 2. Hypoalbuminemia - Possibly due to combined effects of proteinuria, malnutrition and inflammation associated with comorbid chronic conditions. Will ensure adequate dietary protein intake and also consult dairy nutrition consultant. 3. IDDM - Will continue insulin pump at basal rate and implement sliding scale insulin regimen. Provide comprehensive diabetes care with patient teaching and counseling about the importance of euglycemia, eye care and foot care. 4. CKD - Likely due to diabetic nephropathy. Consult nephrology and avoid nephrotoxic agents such as NSAIDS, aminoglycosides, contrast dyes and certain Alternative medicine products. 5. Anemia - Likely duechiefly to CKD. Will do basic anemia work up including serial stool guaiacs, reticulocyte count and iron studies. Would benefit from Procrit therapy once iron replete. 6. Obesity - Will provide patient all the necessary assistance , counseling and positive reinforcement to facilitate weight loss. Consult dairy nutrition consultant. 7. DVT prophylaxis - Heparin 5000u sq tid. 8. Advance directives - Full code
[2018-06-01] MEDS ORDERED: TAMSULOSIN HCL 0.4 MG CAP ONE (19:25)
[2018-06-01] MEDS: TAMSULOSIN HCL 0.4 MG CAP PO SCH (19:31)
[2018-06-01] MEDS ORDERED: INSULIN (NOVOLOG) ASPART 100 UNITS/ML 10ML VIAL ONE (19:34)
[2018-06-01] MEDS: INSULIN SLIDING SCALE (NOVOLOG) 1 VIAL SQ SCH (19:37)
--- NOTE | 2018-06-01 19:50 | HP ---
CHIEF COMPLAINT: L Flank pain PCP: Dr. Stevenson Arm[employer] Reconnaissance Vehicle Driver: Dr. Mullen Halal Butcher: Dr. Ricketts Retention Representative: Dr. Pendleton/Dr. Guevara HISTORY OF PRESENT ILLNESS: 57yo M with extensive cardiac history seen below, IDDM, and CKD (baseline Cr 3.6-4.0) who presented originally for nausea, L flank pain and constipation. Pt reports developing constipation about 2 weeks ago and some slight LLQ side pain. He thought the pain was due to his constipation so he took OTC agents including mag citrate, pepto bismol, and miralax. Pt reports then having dark diarrhea, however then he continued to develop nausea without any vomiting. Pt went to [facility] and was apparently discharged due to negative workup found on 05/26/18. Pt's nausea and pain did not resolve so he returned to the ED for further evaluation. In the ED pt underwent a CT A/P noncontrast and was found to have a L distal ureteral 6mm stone with obstruction resulting in moderate hydronephrosis. Pt states he has a known kidney stone on his L side, however at the time of diagnosis there was no further workup to be done. Pt denies any recent antibiotics or any ureteral/bladder/renal interventions performed. Pt currently has waxing and waning L flank pain and his nausea was resolved by one dose of Zofran. Pt denies any fevers/chills, shortness of breath, chest pain /discomfort, palpitations, vomiting, further diarrhea, dysuria, polyuria. ED course notable for: 1) Nephrology consulted and discussed 2) Urology consulted 3) Zofran x1 dose given 4) Glucose 61; insulin pump stopped and D5 placed into fluids; repeat POC 200's and restart of insulin basal rate 1.5U/hr 5) CT as above 6) Cr 6.2 PAST MEDICAL HISTORY: IDDM (on insulin pump 1.5U/hr basal) HTN HLD CAD s/p CABG and s/p AICD rEFHF (last echo 06/2017: dilated LV with mildly reduced EF) Aortic stenosis CKD PAST SURGICAL HISTORY: CABG AICD implantation Multiple L eye retinal surgeries Social History: Smoking: Denies Alcohol: Denies Drugs: Denies Lives at home with ; works part-time Allergies No Known Allergies Allergy (Verified 06/01/18 11:06) HOME MEDICATIONS: Home Medications Medication Instructions Recorded Clopidogrel Bisulfate [Plavix -] 75 mg PO DAILY 07/13/13 Ranolazine [Ranexa] 500 mg PO BID 07/13/13 Ranitidine [Zantac -] 150 mg PO BID 06/19/17 Clonidine Patch [Catapres Tts 0.3 mg TD WEEKLY 06/21/17 Patch -] Aspirin [ASA -] 81 mg PO DAILY 09/28/17 Nitroglycerin [Nitrostat] 0.4 mg SL PRN PRN 09/28/17 Torsemide 1 tab PO DAILY 09/29/17 Carvedilol [Coreg -] 25 mg PO BID #60 tablet 09/30/17 Atorvastatin Ca [Lipitor] 80 mg PO HS 06/01/18 Ergocalciferol (Vitamin D2) 50,000 unit PO WEEKLY 06/01/18 [Vitamin D2] Insulin Lispro [Humalog] 0 unit SQ ASDIR PRN 06/01/18 [place]-3 Fatty Acids [[place]-3] 1,000 mg PO BID 06/01/18 Sacubitril/Valsartan [Entresto 49 1 each PO BID 06/01/18 mg-51 mg Tablet] REVIEW OF SYSTEMS CONSTITUTIONAL: Absent: fever, chills, diaphoresis, generalized weakness, malaise, HEENT: Absent: rhinorrhea, nasal congestion, throat pain, throat swelling, difficulty swallowing, mouth swelling, ear pain, eye pain, visual changes CARDIOVASCULAR: Absent: chest pain, syncope, palpitations, irregular heart rate, lightheadedness , peripheral edema RESPIRATORY: Absent: cough, shortness of breath, dyspnea with exertion, orthopnea, wheezing, stridor, hemoptysis GASTROINTESTINAL: Present: Nausea, abdominal/flank pain, alternated constipation and diarrhea Absent: abdominal distension, vomiting, melena, hematochezia GENITOURINARY: Absent: dysuria, frequency, urgency, hesitancy, hematuria, MUSCULOSKELETAL: Absent: back pain, neck pain SKIN: Absent: rash, itching, pallor NEUROLOGIC: Absent: headache, focal weakness or paresthesias, dizziness, unsteady gait, PHYSICAL EXAMINATION Vital Signs - 24 hr 06/01/18 06/01/18 11:06 17:52 Temperature 97.7 F Pulse Rate 67 Pulse Rate [ 64 Apical] Respiratory 16 18 Rate Blood Pressure 169/98 Blood Pressure 134/84 [Left Arm] O2 Sat by Pulse 100 100 Oximetry (%) GENERAL: Awake, alert, and fully oriented, in no acute distress. HEENT: NC/AT, EOMI, R eye reacts to light, L eye clouded conjunctiva, sclera anicteric, MMM NECK: No JVD LUNGS: CTA bilaterally. No wheezes, and no crackles. No accessory muscle use. On RA HEART: RRR, normal S1 and S2 with 3/6 systolic murmur at the R sternal borderd. ABDOMEN: Soft, nondistended, obese, normoactive BS, no guarding, mild tenderness on LLQ/flank with deep palpation, no suprapubic fullness or tenderness, R sided injector site for insulin pump without any overlying skin changes. MUSCULOSKELETAL: No CVA tenderness. No spinous processes tenderness EXTREMITIES: 2+ pulses, warm, well-perfused. No peripheral edema. PSYCHIATRIC: Cooperative. Good eye contact. Appropriate mood and affect. SKIN: Warm, dry, no rashes or lesions noted Laboratory Results - last 24 hr 06/01/18 06/01/18 06/01/18 12:08 12:08 12:08 WBC 13.1 H RBC 3.52 L Hgb 10.6 L Hct 31.3 L MCV 88.9 MCH 30.2 MCHC 33.9 RDW 14.8 Plt Count 412 D MPV 6.8 L Absolute Neuts (auto) 10.7 H Neutrophils % 81.7 Lymphocytes % 8.2 D Monocytes % 8.8 Eosinophils % 0.8 Basophils % 0.5 Nucleated RBC % 0 PT with INR INR Sodium 139 Potassium 4.7 Chloride 109 H Carbon Dioxide 21 Anion Gap 8 BUN 93 H Creatinine 6.3 H Creat Clearance w eGFR 9.24 POC Glucometer Random Glucose 61 L Lactic Acid Calcium 8.3 L Magnesium 2.2 Total Bilirubin 0.5 AST 28 ALT 27 Alkaline Phosphatase 130 H Creatine Kinase 73 Troponin I 0.16 H Total Protein 7.8 Albumin 2.9 L Urine Color Urine Appearance Urine pH Ur Specific [place] Urine Protein Urine Glucose (UA) Urine Ketones Urine Blood Urine Nitrite Urine Bilirubin Urine Urobilinogen Ur Leukocyte Esterase Urine WBC (Auto) Urine RBC (Auto) Ur Epithelial Cells Urine Mucus Acetone, Qual Blood Type Cancelled Antibody Screen Cancelled 06/01/18 06/01/18 06/01/18 12:08 12:08 12:08 WBC RBC Hgb Hct MCV MCH MCHC RDW Plt Count MPV Absolute Neuts (auto) Neutrophils % Lymphocytes % Monocytes % Eosinophils % Basophils % Nucleated RBC % PT with INR 13.50 H INR 1.14 H Sodium Potassium Chloride Carbon Dioxide Anion Gap BUN Creatinine Creat Clearance w eGFR POC Glucometer Random Glucose Lactic Acid 1.0 Calcium Magnesium Total Bilirubin AST ALT Alkaline Phosphatase Creatine Kinase Troponin I Total Protein Albumin Urine Color Urine Appearance Urine pH Ur Specific [place] Urine Protein Urine Glucose (UA) Urine Ketones Urine Blood Urine Nitrite Urine Bilirubin Urine Urobilinogen Ur Leukocyte Esterase Urine WBC (Auto) Urine RBC (Auto) Ur Epithelial Cells Urine Mucus Acetone, Qual Negative Blood Type Antibody Screen 06/01/18 06/01/18 06/01/18 16:48 18:03 19:30 WBC RBC Hgb Hct MCV MCH MCHC RDW Plt Count MPV Absolute Neuts (auto) Neutrophils % Lymphocytes % Monocytes % Eosinophils % Basophils % Nucleated RBC % PT with INR INR Sodium Potassium Chloride Carbon Dioxide Anion Gap BUN Creatinine Creat Clearance w eGFR POC Glucometer [id number] Random Glucose Lactic Acid Calcium Magnesium Total Bilirubin AST ALT Alkaline Phosphatase Creatine Kinase Troponin I Total Protein Albumin Urine Color Ltyellow Urine Appearance Clear Urine pH 5.0 Ur Specific [place] 1.010 Urine Protein 2+ H Urine Glucose (UA) 1+ H Urine Ketones Negative Urine Blood 1+ H Urine Nitrite Negative Urine Bilirubin Negative Urine Urobilinogen Negative Ur Leukocyte Esterase Negative Urine WBC (Auto) 2 Urine RBC (Auto) 2 Ur Epithelial Cells Rare Urine Mucus Rare Acetone, Qual Blood Type Antibody Screen ASSESSMENT/PLAN: 1) Obstructing nephrolithiasis --6mm L distal ureteral stone noted via CT A/P noncontrast --Urology consulted --Nephrology consulted; aware --NS@50cc/hr --Tamsulosin 0.4mg PO qdaily --Morphine 1mg q4h pain 6-10 --Zofran 4mg PRN for nausea 2) Acute on chronic kidney disease --2/2 to obstruction --Monitor Cr and BUN --Dose adjust for reduce Cr clearance currently --Entresto 42mg combo tablet BID; will return to home dose when obstruction alleviated 3) Elevated troponin --Troponin 0.16, repeat --Likely 2/2 to demand --EKG nonconcerning for any changes alongside of absent clinical signs 4) CAD s/p CABG s/p AICD --Continue home medications: Entresto (dose adjusted) BID PO Coreg 25mg BID Ranexa 500mg BID ASA 81mg qDaily Plavix 75mg qDaily --If troponin continues to rise can consult cardiology: Dr. Mullen 5) IDDM --Initial hypoglycemia at 61 resolved with cessation of basal rate; POC now 200's --Resume basal rate on insulin pump (1.5U/hr) --BGM ACHS --ISS TIDAC (may have to dose adjust sliding scale) 6) Normocytic Anemia --Likely 2/2 to anemia of chronic disease (CKD) --Will obtain iron studies in AM --No active signs of bleeding FEN: Fluids: Switch D51/2NS to NS@50cc/hr given glucose resolution Electrolyte abnormalities: None currently; monitor K Nutrition: Renal sodium controlled PPX: DVT - Heparin TID GI - Zantac BID Dispo: Admit to M/S Case discussed with Dr. Praful Zuleta, DO - IM PGY-2 Visit type - Emergency Visit Emergency Visit: Yes ED Registration Date: 06/01/18 Care time: The patient presented to the Emergency Department on the above date and was hospitalized for further evaluation of their emergent condition. - New Patient This patient is new to me today: Yes Date on this admission: 06/01/18 - Critical Care Critical Care patient: No
[2018-06-01] MEDS ORDERED: SACUBITRIL/VALSARTAN 49 MG-51 MG TABLET PO SCH (22:00)
[2018-06-01] MEDS: RANOLAZINE E.R. 500 MG TABLET (FP) PO SCH (23:33)
[2018-06-01] MEDS: ATORVASTATIN CA 80 MG TABLET (FP) PO SCH (23:33)
[2018-06-01] MEDS: SACUBITRIL/VALSARTAN 24 MG-26 MG TABLET PO SCH (23:33)
[2018-06-01] MEDS: RANITIDINE HCL 150 MG TABLET (FP) PO SCH (23:33)
[2018-06-01] MEDS: CARVEDILOL 25 MG TABLET (FP) PO SCH (23:33)
[2018-06-01] MEDS: HEPARIN NA (PORCINE) 5,000 UNITS/ML 1ML VIAL SQ SCH (23:36)
[2018-06-02] MEDS: HEPARIN NA (PORCINE) 5,000 UNITS/ML 1ML VIAL SQ SCH ×2 (06:13→22:06)
[2018-06-02] MEDS: INSULIN SLIDING SCALE (NOVOLOG) 1 VIAL SQ SCH ×3 (06:36→17:00)
[2018-06-02 08:04] LABS: HEMATOCRIT 28.2 % (35.4-49); HEMOGLOBIN 9.3 GM/dL (11.7-16.9); MCH 29.9 pg (25.7-33.7); MCHC 32.8 g/dl (32.0-35.9); MEAN CELL VOLUME 91.3 fl (80-96); MEAN PLT VOLUME 6.7 fl (7.5-11.1); PLATELET COUNT 241 K/MM3 (134-434); RBC 3.09 M/mm3 (4.00-5.60); RDW 14.4 % (11.9-15.9); WHITE BLOOD COUNT 8.4 K/mm3 (4.0-10.0)
--- NOTE | 2018-06-02 08:15 | CON.GU ---
Consult Consult Specialty:: urology Referred by:: Graham Reason for Consultation:: acute renal failure with obstructing left ureteral stone - History of Present Illness Chief Complaint: ARF/left hydro with obstructing left ureteral stone - History Source History Provided By: Patient, Medical Record, Caregiver Limitations to Obtaining History: No Limitations - Past Medical History Cardio/Vascular: Yes: Aortic Stenosis, CAD, CHF, HTN, Hyperlipdemia, CA, Mitral Insufficiency, Other (ICD implant) Renal/: Yes: Renal Inusuff Endocrine: Yes: Diabetes Mellitus - Past Surgical History Past Surgical History: Yes: AICD, CABG, Stent - Alcohol/Substance Use Hx Alcohol Use: No History of Substance Use: reports: None - Smoking History Smoking history: Never smoked - Social History ADL: Independent 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 History of Recent Travel: No Home Medications - Allergies Allergies/Adverse Reactions: Allergies Allergy/AdvReac Type Severity Reaction Status Date / Time No Known Allergies Allergy Verified 06/01/18 11:06 - Home Medications Home Medications: Ambulatory Orders Clopidogrel Bisulfate [Plavix -] 75 mg PO DAILY 07/13/13 Ranolazine [Ranexa] 500 mg PO BID 07/13/13 Ranitidine [Zantac -] 150 mg PO BID 06/19/17 Clonidine Patch [Catapres Tts Patch -] 0.3 mg TD WEEKLY 06/21/17 Aspirin [ASA -] 81 mg PO DAILY 09/28/17 Nitroglycerin [Nitrostat] 0.4 mg SL PRN PRN 09/28/17 Torsemide 1 tab PO DAILY 09/29/17 Carvedilol [Coreg -] 25 mg PO BID #60 tablet 09/30/17 Atorvastatin Ca [Lipitor] 80 mg PO HS 06/01/18 Ergocalciferol (Vitamin D2) [Vitamin D2] 50,000 unit PO WEEKLY 06/01/18 Insulin Lispro [Humalog] 0 unit SQ ASDIR PRN 06/01/18 [place]-3 Fatty Acids [[place]-3] 1,000 mg PO BID 06/01/18 Sacubitril/Valsartan [Entresto 49 mg-51 mg Tablet] 1 each PO BID 06/01/18 Family Disease History - Family Disease History Family Disease History: Diabetes: Mother (), Brother, Heart Disease: Mother, Brother Physical Exam- Vital Signs: Vital Signs Temperature 98.1 F 06/02/18 06:00 Pulse Rate 70 06/02/18 06:00 Respiratory Rate 20 06/02/18 06:00 Blood Pressure 137/67 06/02/18 06:00 O2 Sat by Pulse Oximetry (%) 99 06/02/18 02:35 Constitutional: Yes: No Distress, Calm, Obese Eyes: Yes: WNL, Conjunctiva Clear, EOM Intact HENT: Yes: WNL, Atraumatic, Normocephalic Neck: Yes: WNL, Supple, Trachea Midline Cardiovascular: Yes: WNL, Regular Rate and Rhythm Respiratory: Yes: WNL, Regular Gastrointestinal: Yes: WNL, Soft, Abdomen, Obese, Hypoactive Bowel Sounds Renal/: Yes: CVA Tenderness - Left Kidneys: Yes: Flank Pain Left Pelvis: Yes: WNL, Bladder Non Palpable Testicles: Yes: WNL Scrotum: Yes: WNL Penis: Yes: WNL Prostate Exam: Yes: Swollen Imaging - Results Cat Scan: Report Reviewed Assessment/Plan impression acute renal failure left hydronephrosis with obstructing left ureteral stone plan patient is scheduled emergently for a left percutaneous nephrostomy tube placement; heparin is held Discussed with Dr. Ellis risks and benefits reviewed with patient 25 minutes devoted to patient care
[2018-06-02] MEDS: TAMSULOSIN HCL 0.4 MG CAP PO SCH ×2 (08:53→15:20)
[2018-06-02 09:13] LABS: ANION GAP 12 MMOL/L (8-16); BLOOD UREA NITROGEN 92 mg/dL (7-18); CALCIUM 7.8 mg/dL (8.5-10.1); CHLORIDE 106 mmol/L (98-107); CO2 18 mmol/L (21-32); CREATININE 6.2 mg/dL (0.55-1.3); GLUCOSE,RANDOM 299 mg/dL (74-106); PHOSPHOROUS 5.2 mg/dL (2.5-4.9); POTASSIUM 5.5 mmol/L (3.5-5.1); SODIUM 135 mmol/L (136-145)
[2018-06-02] MEDS ORDERED: PT OWN MED DRAWER 7, Y5N ONE ×3 (09:57→17:31)
[2018-06-02] MEDS: RANOLAZINE E.R. 500 MG TABLET (FP) PO SCH ×2 (09:59→22:07)
[2018-06-02] MEDS: CARVEDILOL 25 MG TABLET (FP) PO SCH ×2 (09:59→22:10)
[2018-06-02] MEDS ORDERED: ENOXAPARIN NA (PORCINE) 30 MG/0.3 ML DISP.SYRIN SQ SCH (10:00)
[2018-06-02] MEDS ORDERED: FLU VACCINE QUAD 60 MCG/0.5 ML (MDV 18-19) IM ONE (10:00)
[2018-06-02] MEDS ORDERED: ENOXAPARIN NA (PORCINE) 40 MG/0.4 ML DISP.SYRIN SQ SCH (10:00)
[2018-06-02] MEDS: SACUBITRIL/VALSARTAN 24 MG-26 MG TABLET PO SCH (10:01)
[2018-06-02] MEDS: RANITIDINE HCL 150 MG TABLET (FP) PO SCH ×3 (10:02→22:07)
[2018-06-02] MEDS ORDERED: INSULIN (NOVOLOG) ASPART 100 UNITS/ML 10ML VIAL ONE ×2 (11:20→18:29)
[2018-06-02] MEDS ORDERED: SODIUM POLYSTYRENE SULFONATE 15 GM/60 ML BOTTLE PO ONE (11:22)
[2018-06-02] MEDS ORDERED: CALCIUM GLUCONATE 10% - 1,000 MG/10 ML VIAL IVPB ONE (11:25)
[2018-06-02] MEDS ORDERED: CALCIUM GLUCONATE 10% - 1,000 MG in SODIUM CHLORIDE 100 ML IVPB ONE (11:45)
--- NOTE | 2018-06-02 11:49 | CONSULT ---
Consult - text type - Consultation Consultation Note: Renal Consult for HECTOR on CKD This is a 57 year old gentleman with CKD stage 4, CAD, , Hyperlipidemia, DM, hx of non-obstructing nephrolithiasis who presented with flank and back pain and found to have left sided hydronephrosis with HECTOR. Pt reports he has been having back pain for a few weeks. He went to [facility] and was told that he passed a stone and was discharged. Pain is improved now. no CP, SOB, Abd pain, N/V/D. + Constipation. No AMS, confusion or lethargy. PMhx: as above Allergies: NKDA Family Hx: NC Social Hx No T/A/D ROS: As per hpi, all other ros negative Home Medications Medication Instructions Recorded Clopidogrel Bisulfate [Plavix -] 75 mg PO DAILY 07/13/13 Ranolazine [Ranexa] 500 mg PO BID 07/13/13 Ranitidine [Zantac -] 150 mg PO BID 06/19/17 Clonidine Patch [Catapres Tts 0.3 mg TD WEEKLY 06/21/17 Patch -] Aspirin [ASA -] 81 mg PO DAILY 09/28/17 Nitroglycerin [Nitrostat] 0.4 mg SL PRN PRN 09/28/17 Torsemide 1 tab PO DAILY 09/29/17 Carvedilol [Coreg -] 25 mg PO BID #60 tablet 09/30/17 Atorvastatin Ca [Lipitor] 80 mg PO HS 06/01/18 Ergocalciferol (Vitamin D2) 50,000 unit PO WEEKLY 06/01/18 [Vitamin D2] Insulin Lispro [Humalog] 0 unit SQ ASDIR PRN 06/01/18 [place]-3 Fatty Acids [[place]-3] 1,000 mg PO BID 06/01/18 Sacubitril/Valsartan [Entresto 49 1 each PO BID 06/01/18 mg-51 mg Tablet] Vital Signs Temperature 97.8 F 06/02/18 09:31 Pulse Rate 72 06/02/18 09:31 Respiratory Rate 20 06/02/18 09:31 Blood Pressure 147/67 06/02/18 09:31 O2 Sat by Pulse Oximetry (%) 99 06/02/18 02:35 Intake & Output 05/30/18 05/31/18 06/01/18 06/02/18 23:59 23:59 23:59 23:59 Intake Total 200 600 Output Total 400 580 Balance -200 20 Weight 123.105 kg NAD awake and alert RRR, no M/R CTA, no rales or wheeze soft NT/ND, Obese no LE edema, clubbing or cyanosis CBC, BMP 06/02/18 06:30 06/02/18 06:30 Laboratory Tests 06/01/18 06/02/18 06/02/18 16:48 06:30 06:30 MCV 91.3 Creat Clearance w eGFR 9.41 Calcium 7.8 L Phosphorus 5.2 H Magnesium 2.0 Iron TIBC Iron Saturation Ferritin Urine Protein 2+ H Urine Glucose (UA) 1+ H Urine Blood 1+ H 06/02/18 06/02/18 06:30 06:30 MCV Creat Clearance w eGFR Calcium Phosphorus Magnesium Iron Pending TIBC Pending Iron Saturation Pending Ferritin 83.6 Urine Protein Urine Glucose (UA) Urine Blood Current Medications Atorvastatin Calcium (Lipitor -) 80 mg PO HS [facility] Last Admin: 06/01/18 23:33 Dose: 80 mg Carvedilol (Coreg -) 25 mg PO BID [facility] Last Admin: 06/02/18 09:59 Dose: 25 mg Heparin Sodium (Porcine) (Heparin -) 5,000 unit SQ TID [facility] Last Admin: 06/02/18 06:13 Dose: Not Given Sodium Chloride (Normal Saline -) 1,000 mls @ 50 mls/hr IV ASDIR [facility] Stop: 06/02/18 14:59 Last Admin: 06/01/18 19:49 Dose: 50 mls/hr Calcium Gluconate 1,000 mg/ (Sodium Chloride) 110 mls @ 110 mls/hr IVPB ONCE ONE Stop: 06/02/18 12:44 Insulin Aspart (Novolog Vial Sliding Scale -) 1 vial SQ TIDAC [facility]; Protocol Last Admin: 06/02/18 11:35 Dose: 3 unit Morphine Sulfate (Morphine Sulfate) 1 mg IVPUSH Q4H PRN PRN Reason: PAIN LEVEL 6-10 Ondansetron HCl (Zofran Injection) 4 mg IVPUSH Q6H PRN PRN Reason: NAUSEA Ranitidine HCl (Zantac -) 150 mg PO BID [facility] Last Admin: 06/02/18 10:02 Dose: Not Given Ranolazine (Ranexa -) 500 mg PO BID [facility] Last Admin: 06/02/18 09:59 Dose: 500 mg Tamsulosin HCl (Flomax -) 0.4 mg PO DAILY@0830 [facility] Last Admin: 06/02/18 08:53 Dose: Not Given 57 year old gentleman with CKD stage 4, CAD, , Hyperlipidemia, DM, hx of non- obstructing nephrolithiasis who presented with flank and back pain and found to have left sided hydronephrosis with HECTOR. #HECTOR secondary to unilateral obstruction from kidney stone #CKD stage 4 (baseline Cr 3.8) secondary to suspected diabetic nephropathy #Constipation #Acute anemia #Mild Hyperkalemia #Metabolic acidosis To have IR nephrostomy placed today and subsequent urologic intervention ON low rate NS now, would change to 1/2 Ns at 100cc per hour following stone placement and titarte per urine output Trend BMP Q12h Expect potassium and acidosis to improve s/p nephrostomy tube placement Consider enema (not fleet) if pt unable to pass stool Chcek iron stuides, stool for occult blood no acute need for transfusion may need MARCI Thank you Will follow Jose Manule Pendleton DO
--- NOTE | 2018-06-02 13:00 | EKG ---
Test Reason : Blood Pressure : / mmHG Vent. Rate : 061 BPM Atrial Rate : 061 BPM P-R Int : 218 ms QRS Dur : 116 ms QT Int : 470 ms P-R-T Axes : 071 024 147 degrees QTc Int : 473 ms SINUS RHYTHM WITH 1ST DEGREE A-V BLOCK T WAVE ABNORMALITY, CONSIDER LATERAL ISCHEMIA PROLONGED QT ABNORMAL ECG WHEN COMPARED WITH ECG OF 01-JUN-2018 12:16, PREMATURE VENTRICULAR COMPLEXES ARE NO LONGER PRESENT Confirmed by DANIEL GUTIÉRREZ, MONSERRAT ([id number]) on 06/02/2018 1:00:14 PM Referred By: Confirmed By:MONSERRAT SANCHZE MD
[2018-06-02] MEDS ORDERED: MIDAZOLAM HCL 2 MG/2 ML SINGLE DOSE VIAL ONE (13:49)
[2018-06-02] MEDS ORDERED: MIDAZOLAM HCL 2 MG/2 ML SINGLE DOSE VIAL IVPUSH ONE (13:53)
--- NOTE | 2018-06-02 15:38 | CON.CARD ---
Consult Consult Specialty:: Cardiology Referred by:: Hospitalist Medicine Reason for Consultation:: Pre-cystoscopy CV evaluation - History of Present Illness Chief Complaint: Left flank pain History of Present Illness: Patient is a 57 year old male well known to our service (follows Dr. Bridgett Mullen) with underlying CAD, [place] s/p CABG, PCI/stent, ICD implant (2007), hypertension, hypercholesterolemia, Insulin requiring diabetes mellitus, gout, non-obstructing nephrolithiasis who presents left flank and back pain and found to have distal left ureteral stone with left-sided hydronephrosis and acute on CKD and hyperkalemia given kayexelate. He denies CP, SOB, Abd pain, N/V/D, fevers, chills, hematuria + Constipation. No AMS, confusion or lethargy. 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 History of Recent Travel: No Home Medications - Allergies Allergies/Adverse Reactions: Allergies Allergy/AdvReac Type Severity Reaction Status Date / Time No Known Allergies Allergy Verified 06/01/18 11:06 - Home Medications Home Medications: Ambulatory Orders Clopidogrel Bisulfate [Plavix -] 75 mg PO DAILY 07/13/13 Ranolazine [Ranexa] 500 mg PO BID 07/13/13 Ranitidine [Zantac -] 150 mg PO BID 06/19/17 Clonidine Patch [Catapres Tts Patch -] 0.3 mg TD WEEKLY 06/21/17 Aspirin [ASA -] 81 mg PO DAILY 09/28/17 Nitroglycerin [Nitrostat] 0.4 mg SL PRN PRN 09/28/17 Torsemide 1 tab PO DAILY 09/29/17 Carvedilol [Coreg -] 25 mg PO BID #60 tablet 09/30/17 Atorvastatin Ca [Lipitor] 80 mg PO HS 06/01/18 Ergocalciferol (Vitamin D2) [Vitamin D2] 50,000 unit PO WEEKLY 06/01/18 Insulin Lispro [Humalog] 0 unit SQ ASDIR PRN 06/01/18 [place]-3 Fatty Acids [[place]-3] 1,000 mg PO BID 06/01/18 Sacubitril/Valsartan [Entresto 49 mg-51 mg Tablet] 1 each PO BID 06/01/18 Family Disease History - Family Disease History Family Disease History: Diabetes: Mother (), Brother, Heart Disease: Mother, Brother Review of Systems - Review of Systems Constitutional: reports: No Symptoms Eyes: reports: No Symptoms HENT: reports: No Symptoms Cardiovascular: reports: No Symptoms Respiratory: reports: No Symptoms Gastrointestinal: reports: No Symptoms Genitourinary: reports: Flank Pain Musculoskeletal: reports: No Symptoms Integumentary: reports: No Symptoms Neurological: reports: No Symptoms Vital Signs: Vital Signs Temperature 98.2 F 06/02/18 14:53 Pulse Rate 71 06/02/18 14:53 Respiratory Rate 20 06/02/18 14:53 Blood Pressure 90/62 06/02/18 14:53 O2 Sat by Pulse Oximetry (%) 98 06/02/18 14:53 Constitutional: Yes: No Distress, Calm Neck: Yes: Supple Respiratory: Yes: Regular, CTA Bilaterally Gastrointestinal: Yes: Soft, Abdomen, Obese, Hypoactive Bowel Sounds Cardiovascular: Yes: Regular Rate and Rhythm JVD: No Carotid Bruit: No Heart Sounds: Yes: S1, S2 Murmur: Yes: Systolic Murmur, Grade 1 Edema: No - Other Data Labs, Other Data: CBC, BMP 06/02/18 06:30 06/02/18 06:30 INR, PTT INR 1.14 (0.83-1.09) H 06/01/18 12:08 Troponin, BNP 06/01/18 20:40 Troponin I 0.15 H Troponin, BNP 06/01/18 20:40 Troponin I 0.15 H NSR @ 64 inferolateral T wave changes, PVC Imaging - Results Chest X-ray: Report Reviewed (NAD) Cat Scan: Report Reviewed (5 mm distal left ureteral stone with mild-mod hydronephrosis) Problem List - Problems (1) Acute on chronic kidney failure Code(s): N17.9 - ACUTE KIDNEY FAILURE, UNSPECIFIED; N18.9 - CHRONIC KIDNEY DISEASE, UNSPECIFIED (2) Renal colic on left side Code(s): N23 - UNSPECIFIED RENAL COLIC (3) Aortic valve stenosis Code(s): I35.0 - NONRHEUMATIC AORTIC (VALVE) STENOSIS Qualifiers: Cardiac valve disease etiology: nonrheumatic Qualified Code(s): I35.0 - Nonrheumatic aortic (valve) stenosis (4) CAD (coronary artery disease) Code(s): I25.10 - ATHSCL HEART DISEASE OF [place] CORONARY ARTERY W/O ANG PCTRS Qualifiers: Coronary Disease-Associated Artery/Lesion type: [place] artery [place] vs. transplanted heart: [place] heart Associated angina: without angina Qualified Code(s): I25.10 - Atherosclerotic heart disease of [place] coronary artery without angina pectoris (5) CKD stage 4 due to type 2 diabetes mellitus Code(s): E11.22 - TYPE 2 DIABETES MELLITUS W DIABETIC CHRONIC KIDNEY DISEASE; N18.4 - CHRONIC KIDNEY DISEASE, STAGE 4 (SEVERE) (6) Demand ischemia Code(s): I24.8 - OTHER FORMS OF ACUTE ISCHEMIC HEART DISEASE (7) Diabetes mellitus Code(s): E11.9 - TYPE 2 DIABETES MELLITUS WITHOUT COMPLICATIONS Qualifiers: Diabetes mellitus type: type 2 Diabetes mellitus complication status: without complication (8) HLD (hyperlipidemia) Code(s): E78.5 - HYPERLIPIDEMIA, UNSPECIFIED Qualifiers: Hyperlipidemia type: pure hypercholesterolemia Qualified Code(s): E78.00 - Pure hypercholesterolemia, unspecified (9) HTN (hypertension) Code(s): I10 - ESSENTIAL (PRIMARY) HYPERTENSION Qualifiers: Hypertension type: essential hypertension Qualified Code(s): I10 - Essential (primary) hypertension (10) History of coronary artery stent placement Code(s): Z95.5 - PRESENCE OF CORONARY ANGIOPLASTY IMPLANT AND GRAFT (11) Hx of CABG Code(s): Z95.1 - PRESENCE OF AORTOCORONARY BYPASS GRAFT (12) ICD (implantable cardioverter-defibrillator) in place Code(s): Z95.810 - PRESENCE OF AUTOMATIC (IMPLANTABLE) CARDIAC DEFIBRILLATOR (13) Sleep apnea Code(s): G47.30 - SLEEP APNEA, UNSPECIFIED Qualifiers: Sleep apnea type: obstructive Qualified Code(s): G47.33 - Obstructive sleep apnea (adult) (pediatric) (14) Systolic dysfunction without heart failure Code(s): I51.9 - HEART DISEASE, UNSPECIFIED Assessment/Plan 1. Acute on CKD IV secondary to left obstruction from kidney stone post nephrostomy decompression 2. CKD stage 4 (baseline Cr 3.8) secondary to suspected diabetic nephropathy 3. Systolic LV systolic dysfunction, euvolemic 4. Aortic valve disease - aortic stenosis 5. CAD, history of [place], s/p CABG, PCI/stent - elevated troponin referable to demand ischemia 6. Hypertension 7. Hypercholesterolemia 8. Post ICD implant due to low LVEF and CHF 9. Anemia of CKD 10. Gout 11. OSAS on cpap PLAN: 1. Judicious hydration and monitor renal recovery post nephrostomy 2. Currently on Carvedilol 25 bid, Clonidine patch, Lipitor 80 qhs 3. Resume ASA 81 qd, hold Plavix 75 qd for now pending procedures, continue Ranexa 500 bid 4. Resume Entresto 49/51 bid and Demadex 20 qd once renal fxn and hyperkalemia stabilized 5. Troponins plateaued, patient may proceed with cystoscopy, stone removal and ureteral stent placement from CV-standpoint 6. DVT prophylaxis, thank you for consultative opportunity
--- NOTE | 2018-06-02 16:03 | PN ---
Teaching Attending Note Name of Resident: Celso Collins ATTENDING PHYSICIAN STATEMENT I saw and evaluated the patient. I reviewed the resident's note and discussed the case with the resident. I agree with the resident's findings and plan as documented with exceptions below. SUBJECTIVE: Patient seen and examined. left sided abdominal pain resolved. No fevers/chills/ chest pain/dyspnea or new concerns. OBJECTIVE: Vital Signs Period Temp Pulse Resp BP Sys/Gallo Pulse Ox Last 24 Hr 97.8 F-98.3 F 60-75 16-20 90-159/58-84 98-100 Intake & Output 05/30/18 05/31/18 06/01/18 06/02/18 23:59 23:59 23:59 23:59 Intake Total 200 600 Output Total 400 580 Balance -200 20 Weight 271 lb 6.4 oz General; morbidly obese male in no acute distress CVS:S1S2 regular Chest: limited by habitus, no rales or wheezing, lying flat in bed with no concerns Abdomen:soft, obese, No LLQ or Left CVA tenderness noted, no voluntary or involuntary guarding or rigidity Extremities: no edema Home Medications Medication Instructions Recorded Clopidogrel Bisulfate [Plavix -] 75 mg PO DAILY 07/13/13 Ranolazine [Ranexa] 500 mg PO BID 07/13/13 Ranitidine [Zantac -] 150 mg PO BID 06/19/17 Clonidine Patch [Catapres Tts 0.3 mg TD WEEKLY 06/21/17 Patch -] Aspirin [ASA -] 81 mg PO DAILY 09/28/17 Nitroglycerin [Nitrostat] 0.4 mg SL PRN PRN 09/28/17 Torsemide 1 tab PO DAILY 09/29/17 Carvedilol [Coreg -] 25 mg PO BID #60 tablet 09/30/17 Atorvastatin Ca [Lipitor] 80 mg PO HS 06/01/18 Ergocalciferol (Vitamin D2) 50,000 unit PO WEEKLY 06/01/18 [Vitamin D2] Insulin Lispro [Humalog] 0 unit SQ ASDIR PRN 06/01/18 [place]-3 Fatty Acids [[place]-3] 1,000 mg PO BID 06/01/18 Sacubitril/Valsartan [Entresto 49 1 each PO BID 06/01/18 mg-51 mg Tablet] Active Medications Atorvastatin Calcium (Lipitor -) 80 mg PO HS [facility] Last Admin: 06/01/18 23:33 Dose: 80 mg Carvedilol (Coreg -) 25 mg PO BID [facility] Last Admin: 06/02/18 09:59 Dose: 25 mg Heparin Sodium (Porcine) (Heparin -) 5,000 unit SQ TID [facility] Last Admin: 06/02/18 06:13 Dose: Not Given Insulin Aspart (Novolog Vial Sliding Scale -) 1 vial SQ TIDAC [facility]; Protocol Last Admin: 06/02/18 11:35 Dose: 3 unit Morphine Sulfate (Morphine Sulfate) 1 mg IVPUSH Q4H PRN PRN Reason: PAIN LEVEL 6-10 Ondansetron HCl (Zofran Injection) 4 mg IVPUSH Q6H PRN PRN Reason: NAUSEA Ranitidine HCl (Zantac -) 150 mg PO BID [facility] Last Admin: 06/02/18 15:21 Dose: 150 mg Ranolazine (Ranexa -) 500 mg PO BID [facility] Last Admin: 06/02/18 09:59 Dose: 500 mg Tamsulosin HCl (Flomax -) 0.4 mg PO DAILY@0830 [facility] Last Admin: 06/02/18 15:20 Dose: 0.4 mg Laboratory Results - last 24 hr 06/01/18 06/01/18 06/01/18 16:48 18:03 19:30 WBC RBC Hgb Hct MCV MCH MCHC RDW Plt Count MPV Sodium Potassium Chloride Carbon Dioxide Anion Gap BUN Creatinine Creat Clearance w eGFR POC Glucometer [phone] Random Glucose Calcium Phosphorus Magnesium Ferritin Troponin I Urine Color Ltyellow Urine Appearance Clear Urine pH 5.0 Ur Specific [place] 1.010 Urine Protein 2+ H Urine Glucose (UA) 1+ H Urine Ketones Negative Urine Blood 1+ H Urine Nitrite Negative Urine Bilirubin Negative Urine Urobilinogen Negative Ur Leukocyte Esterase Negative Urine WBC (Auto) 2 Urine RBC (Auto) 2 Ur Epithelial Cells Rare Urine Mucus Rare 06/01/18 06/01/18 06/02/18 20:40 22:50 06:30 WBC 8.4 RBC 3.09 L Hgb 9.3 L Hct 28.2 L MCV 91.3 MCH 29.9 MCHC 32.8 RDW 14.4 Plt Count 241 D MPV 6.7 L Sodium Potassium Chloride Carbon Dioxide Anion Gap BUN Creatinine Creat Clearance w eGFR POC Glucometer 197 Random Glucose Calcium Phosphorus Magnesium Ferritin Troponin I 0.15 H Urine Color Urine Appearance Urine pH Ur Specific [place] Urine Protein Urine Glucose (UA) Urine Ketones Urine Blood Urine Nitrite Urine Bilirubin Urine Urobilinogen Ur Leukocyte Esterase Urine WBC (Auto) Urine RBC (Auto) Ur Epithelial Cells Urine Mucus 06/02/18 06/02/18 06/02/18 06:30 06:30 06:34 WBC RBC Hgb Hct MCV MCH MCHC RDW Plt Count MPV Sodium 135 L Potassium 5.5 H Chloride 106 Carbon Dioxide 18 L Anion Gap 12 BUN 92 H Creatinine 6.2 H Creat Clearance w eGFR 9.41 POC Glucometer 343 Random Glucose 299 H Calcium 7.8 L Phosphorus 5.2 H Magnesium 2.0 Ferritin 83.6 Troponin I Urine Color Urine Appearance Urine pH Ur Specific [place] Urine Protein Urine Glucose (UA) Urine Ketones Urine Blood Urine Nitrite Urine Bilirubin Urine Urobilinogen Ur Leukocyte Esterase Urine WBC (Auto) Urine RBC (Auto) Ur Epithelial Cells Urine Mucus 06/02/18 11:30 WBC RBC Hgb Hct MCV MCH MCHC RDW Plt Count MPV Sodium Potassium Chloride Carbon Dioxide Anion Gap BUN Creatinine Creat Clearance w eGFR POC Glucometer 345 Random Glucose Calcium Phosphorus Magnesium Ferritin Troponin I Urine Color Urine Appearance Urine pH Ur Specific [place] Urine Protein Urine Glucose (UA) Urine Ketones Urine Blood Urine Nitrite Urine Bilirubin Urine Urobilinogen Ur Leukocyte Esterase Urine WBC (Auto) Urine RBC (Auto) Ur Epithelial Cells Urine Mucus CT A/P results reviewed CXR results reviewed ASSESSMENT AND PLAN: 57 yom with PMHx of ASHD, [place], S/P CABG, PCI/stent, ICD implant(2007), HTN, hypercholesterolemia, IDDM on insulin pump, CKD stage III -IV (baseline cr around 3) gout and 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 -Left ureteral stone with left mild to moderate hydronephrosis -HECTOR on CKD stage IV -Hyperkalemia -Elevated troponin likely demand induced from above vs severe HECTOR rather than ACS -Ischemic cardiomyopathy -CAD s/p CABG/UT/PCI, abnormal stress test in 06/2017 -IDDM on insulin pump -HTN -s/p AICD -GOut Plan: Urology input noted, s/p left nephrostomy tube placement. BMP q12h. K noted, EKG, kayexalate x 1. Monitor lytes closely. Diaz insertion for strict i/o's and concerns for retention. Renal input noted. Cardiology consult. Hold entresto/AsA/plavix. Continue statin/coreg/ranexa IVF with close monitoring of volume status. GIPPX with ranitidine DVTPPX, on hold for nephrostomy tube, resume pending surgical plans. Plan discussed with patient in detail, all questions answered. Care co-ordinated with Dr. Pendleton, Dr. Yasir Tristan and Dr. Pisano. Total time spent 35 min.
--- NOTE | 2018-06-02 16:09 | PN ---
Physical Exam: SUBJECTIVE: Patient seen and examined at bedside this morning. No acute overnight events. He is urinating well, without dysuria, hematuria. Denies fevers, chills, shortness of breath, chest pain, palpitations, abdominal pain, nausea, vomiting, diarrhea. OBJECTIVE: Vital Signs Period Temp Pulse Resp BP Sys/Gall[place] Pulse Ox Last 24 Hr 97.8 F-98.3 F 60-75 16-20 90-159/58-84 98-100 GENERAL: The patient is awake, alert, and fully oriented, in no acute distress. HEAD: Normocephalic, atraumatic. EYES: Right pupil round, reactive to light. Left pupil cloudy in appearance ( history of torn retina). Sclera anicteric, conjunctiva non injected b/l. ENT: Oropharynx clear without exudates, or erythema, moist mucous membranes. NECK: Trachea midline, supple without lymphadenopathy LUNGS: Good inspiratory effort, and air entry b/l. Breath sounds equal, clear to auscultation bilaterally. No wheezes, no crackles auscultated b/l. No accessory muscle use. HEART: Regular rate and rhythm, S1, S2. Holosystolic murmur auscultated over left sternal border, without radiation to carotids b/l. ABDOMEN: Obese, soft, nontender, nondistended. Normoactive bowel sounds, no guarding, no rebound, no hepatosplenomegaly. Right sided port for [place] pump noted. No CVA tenderness B/L EXTREMITIES: 2+ radial and dorsalis pedis pulses b/l. Warm, well-perfused. No lower extremity edema or calf tenderness b/l. NEUROLOGICAL: Cranial nerves II through XII grossly intact. Normal speech. Strength 5/5 b/l upper extremities in flexion, extension, abduction, adduction. Strength 5/5 b/l lower extremities in hip flexion, extension, knee flexion, extension, dorsiflexion, plantarflexion. PSYCH: Mood and affect appropriate upon my encounter today. SKIN: Warm, dry, normal turgor. Laboratory Results - last 24 hr 06/01/18 06/01/18 06/01/18 16:48 18:03 19:30 WBC RBC Hgb Hct MCV MCH MCHC RDW Plt Count MPV Sodium Potassium Chloride Carbon Dioxide Anion Gap BUN Creatinine Creat Clearance w eGFR POC Glucometer [phone] Random Glucose Calcium Phosphorus Magnesium Ferritin Troponin I Urine Color Ltyellow Urine Appearance Clear Urine pH 5.0 Ur Specific [place] 1.010 Urine Protein 2+ H Urine Glucose (UA) 1+ H Urine Ketones Negative Urine Blood 1+ H Urine Nitrite Negative Urine Bilirubin Negative Urine Urobilinogen Negative Ur Leukocyte Esterase Negative Urine WBC (Auto) 2 Urine RBC (Auto) 2 Ur Epithelial Cells Rare Urine Mucus Rare 06/01/18 06/01/18 06/02/18 20:40 22:50 06:30 WBC 8.4 RBC 3.09 L Hgb 9.3 L Hct 28.2 L MCV 91.3 MCH 29.9 MCHC 32.8 RDW 14.4 Plt Count 241 D MPV 6.7 L Sodium Potassium Chloride Carbon Dioxide Anion Gap BUN Creatinine Creat Clearance w eGFR POC Glucometer 197 Random Glucose Calcium Phosphorus Magnesium Ferritin Troponin I 0.15 H Urine Color Urine Appearance Urine pH Ur Specific [place] Urine Protein Urine Glucose (UA) Urine Ketones Urine Blood Urine Nitrite Urine Bilirubin Urine Urobilinogen Ur Leukocyte Esterase Urine WBC (Auto) Urine RBC (Auto) Ur Epithelial Cells Urine Mucus 06/02/18 06/02/18 06/02/18 06:30 06:30 06:34 WBC RBC Hgb Hct MCV MCH MCHC RDW Plt Count MPV Sodium 135 L Potassium 5.5 H Chloride 106 Carbon Dioxide 18 L Anion Gap 12 BUN 92 H Creatinine 6.2 H Creat Clearance w eGFR 9.41 POC Glucometer 343 Random Glucose 299 H Calcium 7.8 L Phosphorus 5.2 H Magnesium 2.0 Ferritin 83.6 Troponin I Urine Color Urine Appearance Urine pH Ur Specific [place] Urine Protein Urine Glucose (UA) Urine Ketones Urine Blood Urine Nitrite Urine Bilirubin Urine Urobilinogen Ur Leukocyte Esterase Urine WBC (Auto) Urine RBC (Auto) Ur Epithelial Cells Urine Mucus 06/02/18 11:30 WBC RBC Hgb Hct MCV MCH MCHC RDW Plt Count MPV Sodium Potassium Chloride Carbon Dioxide Anion Gap BUN Creatinine Creat Clearance w eGFR POC Glucometer 345 Random Glucose Calcium Phosphorus Magnesium Ferritin Troponin I Urine Color Urine Appearance Urine pH Ur Specific [place] Urine Protein Urine Glucose (UA) Urine Ketones Urine Blood Urine Nitrite Urine Bilirubin Urine Urobilinogen Ur Leukocyte Esterase Urine WBC (Auto) Urine RBC (Auto) Ur Epithelial Cells Urine Mucus Active Medications Generic Name Dose Route Start Last Admin Trade Name Freq PRN Reason Stop Dose Admin Atorvastatin Calcium 80 mg 06/01/18 22:00 06/01/18 23:33 Lipitor - PO 80 mg HS [facility] Administration Carvedilol 25 mg 06/01/18 22:00 06/02/18 09:59 Coreg - PO 25 mg BID [facility] Administration Heparin Sodium (Porcine) 5,000 unit 06/01/18 22:00 06/02/18 06:13 Heparin - SQ Not Given TID [facility] Insulin Aspart 1 vial 06/01/18 19:00 06/02/18 11:35 Novolog Vial Sliding Scale - SQ 3 unit TIDAC [facility] Administration Protocol Morphine Sulfate 1 mg 06/01/18 18:47 Morphine Sulfate IVPUSH Q4H PRN PAIN LEVEL 6-10 Ondansetron HCl 4 mg 06/01/18 18:47 Zofran Injection IVPUSH Q6H PRN NAUSEA Ranitidine HCl 150 mg 06/01/18 22:00 06/02/18 15:21 Zantac - PO 150 mg BID [facility] Administration Ranolazine 500 mg 06/01/18 22:00 06/02/18 09:59 Ranexa - PO 500 mg BID [facility] Administration Tamsulosin HCl 0.4 mg 06/01/18 18:59 06/02/18 15:20 Flomax - PO 0.4 mg DAILY@0830 [facility] Administration ASSESSMENT/PLAN: Patient is a 57 year old male with history of Insulin dependent diabetes mellitus (with insulin pump), chronic kidney disease, hypertension, hyperlipidemia, coronary artery disease (s/p CABG, adn AICD), aortic stenosis, and HFrEF presents with nausea and left flank pain. Admitted for obstructing nephrolithiasis. Obstructing nephrolithiasis -CT abdomen/ pelvis notes 6mm obstructing left distal ureteral stone -Urology consult (Dr. Sales) appreciated. Patient for IR left percutaneous nephrostomy tube today. -Tamsulosin 0.4mg PO daily -Pain control with morphine 1mg Q4H PRN -Zofran 4mg IV Q6H PRN Acute on Chronic kidney disease -Etiology likely secondary to obstructing stone -Nephrology consult (Dr. Pendleton) appreciated. 1/2 NS at 100mL/hour following procedure CKD stage IV, baseline Cr 3.8 Hyperkalemia -Potassium 5.5 today -Kayexalate 30mg PO once -No EKG changes noted -F/U BMP CAD, Troponinemia -0.16 -> 0.15 likely demand ischemia. -F/U cardiology consult (Dr. Mullen) -Coreg 25mg PO BID -Ranexa 500mg PO BID Insulin dependent diabetes mellitis -Will hold insulin pump as patient is for procedure today -ISS TIDAC -BGM ACHS HLD -Atorvastatin 80mg PO HS Normocytic anemia -Hb 9.3 Hct 28.2 MCV 91.3, stable. -Anemia likely secondary to chronic kidney disease -F/U iron studies FEN -No IV fluids -Follow CMP -NPO for now in anticipation of procedure today Prophylaxis -Heparin 5000units subq TID (held in anticipation for procedure today, will reinstate after with urology recommendation) Disposition -Continue care in medical-surgical floor Visit type - Emergency Visit Emergency Visit: Yes ED Registration Date: 06/01/18 Care time: The patient presented to the Emergency Department on the above date and was hospitalized for further evaluation of their emergent condition. - New Patient This patient is new to me today: Yes Date on this admission: 06/02/18 - Critical Care Critical Care patient: No - Discharge Referral Referred to [facility] Med P.C.: No
[2018-06-02 16:30] LABS: ANION GAP 12 MMOL/L (8-16); BLOOD UREA NITROGEN 92 mg/dL (7-18); CALCIUM 8.3 mg/dL (8.5-10.1); CHLORIDE 106 mmol/L (98-107); CO2 20 mmol/L (21-32); CREATININE 6.5 mg/dL (0.55-1.3); GLUCOSE,RANDOM 293 mg/dL (74-106); POTASSIUM 5.3 mmol/L (3.5-5.1); SODIUM 138 mmol/L (136-145)
[2018-06-02] MEDS ORDERED: INSULIN (LEVEMIR) 100 UNITS/ML UNITS SQ ONE ×2 (17:18→18:30)
--- NOTE | 2018-06-02 17:23 | ECHO ---
Version: 1 Name: MIRI ARMENDARIZ Exam: Adult Echocardiogram Study Date: 06/02/2018, 3:55 PM Age: 57 Years MMode/2D Measurements & Calculations IVSd: 0.96 cm LVIDs: 4.4 cm LVIDd: 5.9 cm LVPWd: 0.92 cm LVOT diam: 2.24 cm Ao root diam: 2.7 cm LA dimension: 4.6 cm Doppler Measurements & Calculations MV E max tanner: 84.4 cm/sec Med E/e': 24.7 MV A max tanner: 70.6 cm/sec Med Peak E' Tanner: 3.4 cm/sec MV E/A: 1.20 Lat E/e': 12.9 Lat Peak E' Tanner: 6.5 cm/sec MR max P.7 mmHg Ao max P.5 mmHg FELIPE(I,D): 1.35 cm Ao mean P.8 mmHg LV V1 mean: 44.3 cm/sec Ao V2 max: 196.5 cm/sec LV V1 mean P.84 mmHg TR max tanner: 248.7 cm/sec TR max P.7 mmHg Procedure A two-dimensional transthoracic echocardiogram with color flow and Doppler was performed. The study was technically difficult with many images being suboptimal in quality. Left Ventricle The left ventricle is mildly dilated. Left ventricular systolic function is mild to moderately reduc ed. Regional wall motion abnormalities cannot be excluded due to limited visualization. Septal motion is consistent with conduction abnormality. There is mild to moderate global hypokinesis of the left kalani tricle. Right Ventricle The right ventricle is not well visualized. There is a pacemaker lead in the right ventricle. Atria The left atrium is moderately dilated. The right atrium is moderately dilated. Mitral Valve The mitral valve is not well visualized. There is mild to moderate mitral valve thickening. There is no mitral valve stenosis. There is mild mitral regurgitation. Tricuspid Valve The tricuspid valve is not well visualized. There is no tricuspid stenosis. There is mild tricuspid regurgitation. Right ventricular systolic pressure is normal. Aortic Valve The aortic valve is not well visualized. There is mild to moderate aortic valve thickening. No hemodynamically significant valvular aortic stenosis. No aortic regurgitation is present. Pulmonic Valve The pulmonic valve is not well visualized. Great Vessels The aortic root is normal size. Pericardium/Pleura There is no pericardial effusion. Summary Statements The left atrium is moderately dilated. The right atrium is moderately dilated. The left ventricle is mildly dilated. The study was technically difficult with many images being suboptimal in quality. Regional wall motion abnormalities cannot be excluded due to limited visualization. Left ventricular systolic function is mild to moderately reduced. Septal motion is consistent with conduction abnormality. There is mild to moderate global hypokinesis of the left ventricle. There is a pacemaker lead in the right ventricle. There is mild to moderate mitral valve thickening. There is mild mitral regurgitation. There is mild tricuspid regurgitation. Right ventricular systolic pressure is normal. MD Jovan Crane 06/02/2018, 5:23 PM Ordering Physician: Corinna Clinton I Referring Physician: LUIS ALFREDO Performed By: Antonella Brooks
[2018-06-02] MEDS: ATORVASTATIN CA 80 MG TABLET (FP) PO SCH (22:06)
[2018-06-02 22:34] LABS: ANION GAP 8 MMOL/L (8-16); BLOOD UREA NITROGEN 89 mg/dL (7-18); CALCIUM 8.3 mg/dL (8.5-10.1); CHLORIDE 108 mmol/L (98-107); CO2 19 mmol/L (21-32); CREATININE 6.2 mg/dL (0.55-1.3); GLUCOSE,RANDOM 266 mg/dL (74-106); POTASSIUM 4.9 mmol/L (3.5-5.1); SODIUM 135 mmol/L (136-145)
[2018-06-02] MEDS ORDERED: ACETAMINOPHEN 325 MG TABLET (FP) PO ONE (23:30)
[2018-06-03 06:06] LABS: SERUM IRON SATURATION 10 % (15-55); TOTAL IRON BINDING CAPACITY 264 ug/dL (250-450); UIBC 237 ug/dL (111-343)
[2018-06-03] MEDS: HEPARIN NA (PORCINE) 5,000 UNITS/ML 1ML VIAL SQ SCH (06:08)
[2018-06-03] MEDS: INSULIN SLIDING SCALE (NOVOLOG) 1 VIAL SQ SCH ×3 (06:09→17:36)
[2018-06-03] MEDS: INSULIN (LEVEMIR) 100 UNITS/ML UNITS SQ SCH (06:09)
[2018-06-03] MEDS ORDERED: INSULIN (LEVEMIR) 100 UNITS/ML UNITS SQ ONE (06:39)
[2018-06-03] MEDS ORDERED: INSULIN (NOVOLOG) ASPART 100 UNITS/ML 10ML VIAL ONE ×4 (06:40→18:18)
[2018-06-03] MEDS: ACETAMINOPHEN 325 MG TABLET (FP) PO PRN ×2 (06:44→21:28)
--- NOTE | 2018-06-03 08:08 | PN ---
Physical Exam: SUBJECTIVE: Patient seen and examined at bedside this morning. He is POD #1 s/p left nephrostomy tube. Urinated overnight with difficulty, and dysuria. Nephrostomy draining 50cc of sanguineous fluid. Denies fevers, chills, shortness of breath, chest pain, palpitations, abdominal pain, nausea, vomiting , diarrhea. OBJECTIVE: Vital Signs Period Temp Pulse Resp BP Sys/Gallo Pulse Ox Last 24 Hr 97.3 F-98.4 F 60-75 16-20 90-159/58-83 97-100 GENERAL: The patient is awake, alert, and fully oriented, in no acute distress. HEAD: Normocephalic, atraumatic. EYES: Right pupil round, reactive to light. Left pupil cloudy in appearance ( history of torn retina). Sclera anicteric, conjunctiva non injected b/l. ENT: Oropharynx clear without exudates, or erythema, moist mucous membranes. NECK: Trachea midline, supple without lymphadenopathy LUNGS: Good inspiratory effort, and air entry b/l. Breath sounds equal, clear to auscultation bilaterally. No wheezes, no crackles auscultated b/l. No accessory muscle use. HEART: Regular rate and rhythm, S1, S2. Holosystolic murmur auscultated over left sternal border, without radiation to carotids b/l. ABDOMEN: Obese, soft, nontender, nondistended. Normoactive bowel sounds, no guarding, no rebound, no hepatosplenomegaly. No CVA tenderness B/L. Nephrostomy tube draining sanguineous fluid. EXTREMITIES: 2+ radial and dorsalis pedis pulses b/l. Warm, well-perfused. No lower extremity edema or calf tenderness b/l. NEUROLOGICAL: Cranial nerves II through XII grossly intact. Normal speech. Strength 5/5 b/l upper extremities in flexion, extension, abduction, adduction. Strength 5/5 b/l lower extremities in hip flexion, extension, knee flexion, extension, dorsiflexion, plantarflexion. PSYCH: Mood and affect appropriate upon my encounter today. SKIN: Warm, dry, normal turgor. Right sided port for [place] pump noted. Nephrostomy tube site noted, clean and dry at left lower back. Laboratory Last Values WBC 6.3 K/mm3 (4.0-10.0) 10/18/18 07:00 RBC 2.80 M/mm3 (4.00-5.60) L 06/03/18 07:00 Hgb 8.4 GM/dL (11.7-16.9) L 06/03/18 07:00 Hct 24.9 % (35.4-49) L 06/03/18 07:00 MCV 88.9 fl (80-96) 06/03/18 07:00 MCH 29.8 pg (25.7-33.7) 06/03/18 07:00 MCHC 33.6 g/dl (32.0-35.9) 06/03/18 07:00 RDW 14.5 % (11.9-15.9) 06/03/18 07:00 Plt Count 216 K/MM3 (134-434) 06/03/18 07:00 MPV 6.6 fl (7.5-11.1) L 06/03/18 07:00 Absolute Neuts (auto) 4.9 K/mm3 (1.5-8.0) 06/03/18 07:00 Neutrophils % 77.4 % (42.8-82.8) 06/03/18 07:00 Lymphocytes % 11.2 % (8-40) D 06/03/18 07:00 Monocytes % 9.7 % (3.8-10.2) 06/03/18 07:00 Eosinophils % 1.0 % (0-4.5) 06/03/18 07:00 Basophils % 0.7 % (0-2.0) 06/03/18 07:00 Nucleated RBC % 0 % (0-0) 06/03/18 07:00 PT with INR 13.50 SEC (9.7-13.0) H 06/01/18 12:08 INR 1.14 (0.83-1.09) H 06/01/18 12:08 Sodium 137 mmol/L (136-145) 06/03/18 07:00 Potassium 4.4 mmol/L (3.5-5.1) 06/03/18 07:00 Chloride 109 mmol/L (98-107) H 06/03/18 07:00 Carbon Dioxide 20 mmol/L (21-32) L 06/03/18 07:00 Anion Gap 8 MMOL/L (8-16) 06/03/18 07:00 BUN 84 mg/dL (7-18) H 06/03/18 07:00 Creatinine 6.1 mg/dL (0.55-1.3) H 06/03/18 07:00 Creat Clearance w eGFR 9.59 (>60) 06/03/18 07:00 POC Glucometer 311 UNITS (80-120) 06/03/18 11:22 Random Glucose 218 mg/dL (74-106) H 06/03/18 07:00 Hemoglobin A1c % 8.6 % (4.2-6.3) H 06/03/18 07:00 Lactic Acid 1.0 mmol/L (0.4-2.0) 06/01/18 12:08 Calcium 8.0 mg/dL (8.5-10.1) L 06/03/18 07:00 Phosphorus 5.2 mg/dL (2.5-4.9) H 06/03/18 07:00 Magnesium 1.9 mg/dL (1.8-2.4) 06/03/18 07:00 Iron 27 ug/dL (38-169) L 06/02/18 06:30 TIBC 264 ug/dL (250-450) 06/02/18 06:30 Iron Saturation 10 % (15-55) L 06/02/18 06:30 Ferritin 108.0 ng/ml (8-388) 06/03/18 07:00 Total Bilirubin 0.4 mg/dL (0.2-1) 06/03/18 07:00 AST 10 U/L (15-37) L 06/03/18 07:00 ALT 18 U/L (13-61) 06/03/18 07:00 Alkaline Phosphatase 110 U/L (45-117) 06/03/18 07:00 Creatine Kinase 73 IU/L (26-308) 06/01/18 12:08 Troponin I 0.15 ng/ml (0.00-0.05) H 06/01/18 20:40 Total Protein 6.6 g/dl (6.4-8.2) 06/03/18 07:00 Albumin 2.6 g/dl (3.4-5.0) L 06/03/18 07:00 Urine Color Ltyellow 06/01/18 16:48 Urine Appearance Clear 06/01/18 16:48 Urine pH 5.0 (5.0-8.0) 06/01/18 16:48 Ur Specific [place] 1.010 (1.010-1.035) 06/01/18 16:48 Urine Protein 2+ (NEGATIVE) H 06/01/18 16:48 Urine Glucose (UA) 1+ (NEGATIVE) H 06/01/18 16:48 Urine Ketones Negative (NEGATIVE) 06/01/18 16:48 Urine Blood 1+ (NEGATIVE) H 06/01/18 16:48 Urine Nitrite Negative (NEGATIVE) 06/01/18 16:48 Urine Bilirubin Negative (<2.0 mg/dL) 06/01/18 16:48 Urine Urobilinogen Negative mg/dL (0.2-1.0) 06/01/18 16:48 Ur Leukocyte Esterase Negative (NEGATIVE) 06/01/18 16:48 Urine WBC (Auto) 2 /hpf (3-5) 06/01/18 16:48 Urine RBC (Auto) 2 /hpf (0-3) 06/01/18 16:48 Ur Epithelial Cells Rare /HPF (FEW) 06/01/18 16:48 Urine Mucus Rare 06/01/18 16:48 Acetone, Qual Negative (NEGATIVE) 06/01/18 12:08 Blood Type Cancelled 06/01/18 12:08 Antibody Screen Cancelled 06/01/18 12:08 Active Medications Generic Name Dose Route Start Last Admin Trade Name Jose Eq PRN Reason Stop Dose Admin Acetaminophen 650 mg 06/03/18 06:27 06/03/18 06:44 Tylenol - PO 650 mg Q4H PRN Administration PAIN LEVEL 1-5 Aspirin 81 mg 06/03/18 10:00 Asa - PO DAILY CRIS Atorvastatin Calcium 80 mg 06/01/18 22:00 06/02/18 22:06 Lipitor - PO 80 mg HS CRIS Administration Carvedilol 25 mg 06/01/18 22:00 06/02/18 22:10 Coreg - PO 25 mg BID CRIS Administration Heparin Sodium (Porcine) 5,000 unit 06/02/18 22:00 06/03/18 06:08 Heparin - SQ 5,000 unit TID CRIS Administration Insulin Aspart 1 vial 06/02/18 17:17 06/03/18 06:09 Novolog Vial Sliding Scale - SQ 6 units TIDAC CRIS Administration Protocol Insulin Detemir 20 units 06/03/18 07:00 06/03/18 06:09 Levemir Vial SQ 20 units AM CRIS Administration Morphine Sulfate 1 mg 06/01/18 18:47 Morphine Sulfate IVPUSH Q4H PRN PAIN LEVEL 6-10 Ondansetron HCl 4 mg 06/01/18 18:47 Zofran Injection IVPUSH Q6H PRN NAUSEA Ranitidine HCl 150 mg 06/01/18 22:00 06/02/18 22:07 Zantac - PO 150 mg BID CRIS Administration Ranolazine 500 mg 06/01/18 22:00 06/02/18 22:07 Ranexa - PO 500 mg BID CRIS Administration Tamsulosin HCl 0.4 mg 06/01/18 18:59 06/02/18 15:20 Flomax - PO 0.4 mg DAILY@0830 CRIS Administration IMAGING -CT abdomen/ pelvis upon admission noted 6mm obstructing left distal ureteral stone ASSESSMENT/PLAN: Patient is a 57 year old male with history of Insulin dependent diabetes mellitus (with insulin pump), chronic kidney disease, hypertension, hyperlipidemia, coronary artery disease (s/p CABG, and AICD), aortic stenosis, and HFrEF presents with nausea and left flank pain. Admitted for obstructing nephrolithiasis. Obstructing nephrolithiasis Patient is POD#1 s/p left nephrostomy tube placement. -Urology consult (Dr. Sales) appreciated. Patient for possible stent placement, and nephrostomy tube removal on Thursday. -Tamsulosin 0.4mg PO daily -Pain control with tylenol 650mg PO Q6H PRN pain 1-5 -Pain control with morphine 1mg Q4H PRN pain 6-10 -Levaquin (renally dosed) at 250mg IV Q48H. Acute on Chronic kidney disease -Etiology likely secondary to obstructing stone -Nephrology consult (Dr. Pendleton) appreciated. CKD stage IV, baseline Cr 3.8 CAD, Troponinemia -0.16 -> 0.15 likely demand ischemia. -Cardiology consult (Dr. Bertrand) appreciated. -Coreg 25mg PO BID -Ranexa 500mg PO BID -Aspirin 81mg PO daily, with cardiology recommendation Hyperkalemia -Resolved. Potassium 4.4 today Insulin dependent diabetes mellitis -Will hold insulin pump while hospitalized -Insulin Levemir 20 units subq AM -ISS TIDAC -BGM ACHS HLD -Atorvastatin 80mg PO HS Normocytic anemia -Hb 8.4 Hct 24.9 MCV 88.9. -Anemia likely secondary to chronic kidney disease, in addition to acute blood loss s/p nephrostomy tube procedure. -F/U iron studies FEN -No IV fluids -Follow CMP -Diabetic, renal diet Prophylaxis -Heparin 5000units subq TID (held as patient is POD #1 s/p nephrostomy tube and draining sanguinous discharge. will reinstate with urology recommendation) -SCDs b/l lower extremities -Ranitidine 150mg PO BID Disposition -Continue care in medical-surgical floor Visit type - Emergency Visit Emergency Visit: Yes ED Registration Date: 06/01/18 Care time: The patient presented to the Emergency Department on the above date and was hospitalized for further evaluation of their emergent condition. - New Patient This patient is new to me today: No - Critical Care Critical Care patient: No - Discharge Referral Referred to [facility] No
--- NOTE | 2018-06-03 08:10 | CONSULT ---
Consult - text type - Consultation Consultation Note: CC left ureteral stone with ARF s/p left PCNT HPI: Patient comfortable s/p PCNT; denies nausea, vomiting, fever, chills, or renal colic. Patient with grossly bloody urine without clots PE VSS; afeb abd-soft, non-tender; no CVAT; Left PCNT without erythema or tenderness; grossly bloody urine draining labs reviewed impression ARF left ureteral stone with hydronephrosis s/p PCNT gross hematuria on ASA and heparin plan follow chemistry if patient develops clots will need to stop heparin possible stent placement and removal of nephrostomy tube on Thursday continue flomax and levaquin 20 minutes devoted to patient care
[2018-06-03 08:13] LABS: BASO % 0.7 % (0-2.0); HEMATOCRIT 24.9 % (35.4-49); HEMOGLOBIN 8.4 GM/dL (11.7-16.9); LYMPH % 11.2 % (8-40); MCH 29.8 pg (25.7-33.7); MCHC 33.6 g/dl (32.0-35.9); MEAN CELL VOLUME 88.9 fl (80-96); MEAN PLT VOLUME 6.6 fl (7.5-11.1); MONO % 9.7 % (3.8-10.2); NEUT % 77.4 % (42.8-82.8); PLATELET COUNT 216 K/MM3 (134-434); RDW 14.5 % (11.9-15.9); WHITE BLOOD COUNT 6.3 K/mm3 (4.0-10.0)
--- NOTE | 2018-06-03 08:24 | PN ---
Teaching Attending Note Name of Resident: Celso Collins ATTENDING PHYSICIAN STATEMENT I saw and evaluated the patient. I reviewed the resident's note and discussed the case with the resident. I agree with the resident's findings and plan as documented with exceptions below. SUBJECTIVE: Patient seen and examined. Denies any nausea,vomiting, abdominal pain. some left flank discomfort from the PCN tube. OBJECTIVE: Vital Signs Period Temp Pulse Resp BP Sys/Gallo Pulse Ox Last 24 Hr 97.3 F-98.4 F 60-75 16-20 90-159/58-83 97-100 Intake & Output 05/31/18 06/01/18 06/02/18 06/03/18 23:59 23:59 23:59 23:59 Intake Total 200 2100 200 Output Total 400 580 Balance -200 1520 200 Weight 271 lb 6.4 oz 269 lb 9.6 oz General: lying in bed in no acute distress Chest: CTAB, no rales or wheezing Abdomen: soft, obese, NT, left flank PCN tube with bloody drainage Extremities: no edema Active Medications Acetaminophen (Tylenol -) 650 mg PO Q4H PRN PRN Reason: PAIN LEVEL 1-5 Last Admin: 06/03/18 06:44 Dose: 650 mg Aspirin (Asa -) 81 mg PO DAILY [facility] Atorvastatin Calcium (Lipitor -) 80 mg PO HS [facility] Last Admin: 06/02/18 22:06 Dose: 80 mg Carvedilol (Coreg -) 25 mg PO BID [facility] Last Admin: 06/02/18 22:10 Dose: 25 mg Heparin Sodium (Porcine) (Heparin -) 5,000 unit SQ TID [facility] Last Admin: 06/03/18 06:08 Dose: 5,000 unit Insulin Aspart (Novolog Vial Sliding Scale -) 1 vial SQ TIDAC [facility]; Protocol Last Admin: 06/03/18 06:09 Dose: 6 units Insulin Detemir (Levemir Vial) 20 units SQ AM [facility] Last Admin: 06/03/18 06:09 Dose: 20 units Morphine Sulfate (Morphine Sulfate) 1 mg IVPUSH Q4H PRN PRN Reason: PAIN LEVEL 6-10 Ondansetron HCl (Zofran Injection) 4 mg IVPUSH Q6H PRN PRN Reason: NAUSEA Ranitidine HCl (Zantac -) 150 mg PO BID [facility] Last Admin: 06/02/18 22:07 Dose: 150 mg Ranolazine (Ranexa -) 500 mg PO BID [facility] Last Admin: 06/02/18 22:07 Dose: 500 mg Tamsulosin HCl (Flomax -) 0.4 mg PO DAILY@0830 [facility] Last Admin: 06/02/18 15:20 Dose: 0.4 mg Laboratory Results - last 24 hr 06/02/18 06/02/18 06/02/18 06:30 06:30 06:30 WBC RBC Hgb Hct MCV MCH MCHC RDW Plt Count MPV Absolute Neuts (auto) Neutrophils % Lymphocytes % Monocytes % Eosinophils % Basophils % Nucleated RBC % Sodium 135 L Potassium 5.5 H Chloride 106 Carbon Dioxide 18 L Anion Gap 12 BUN 92 H Creatinine 6.2 H Creat Clearance w eGFR 9.41 POC Glucometer Random Glucose 299 H Calcium 7.8 L Phosphorus 5.2 H Magnesium 2.0 Iron 27 L TIBC 264 Iron Saturation 10 L Ferritin 83.6 06/02/18 06/02/18 06/02/18 11:30 15:15 16:59 WBC RBC Hgb Hct MCV MCH MCHC RDW Plt Count MPV Absolute Neuts (auto) Neutrophils % Lymphocytes % Monocytes % Eosinophils % Basophils % Nucleated RBC % Sodium 138 Potassium 5.3 H Chloride 106 Carbon Dioxide 20 L Anion Gap 12 BUN 92 H Creatinine 6.5 H Creat Clearance w eGFR 8.91 POC Glucometer 345 343 Random Glucose 293 H Calcium 8.3 L Phosphorus Magnesium Iron TIBC Iron Saturation Ferritin 06/02/18 06/02/18 06/03/18 21:30 22:05 06:07 WBC RBC Hgb Hct MCV MCH MCHC RDW Plt Count MPV Absolute Neuts (auto) Neutrophils % Lymphocytes % Monocytes % Eosinophils % Basophils % Nucleated RBC % Sodium 135 L Potassium 4.9 Chloride 108 H Carbon Dioxide 19 L Anion Gap 8 BUN 89 H Creatinine 6.2 H Creat Clearance w eGFR 9.41 POC Glucometer 303 268 Random Glucose 266 H Calcium 8.3 L Phosphorus Magnesium Iron TIBC Iron Saturation Ferritin 06/03/18 07:00 WBC 6.3 RBC 2.80 L Hgb 8.4 L Hct 24.9 L MCV 88.9 MCH 29.8 MCHC 33.6 RDW 14.5 Plt Count 216 MPV 6.6 L Absolute Neuts (auto) 4.9 Neutrophils % 77.4 Lymphocytes % 11.2 D Monocytes % 9.7 Eosinophils % 1.0 Basophils % 0.7 Nucleated RBC % 0 Sodium Potassium Chloride Carbon Dioxide Anion Gap BUN Creatinine Creat Clearance w eGFR POC Glucometer Random Glucose Calcium Phosphorus Magnesium Iron TIBC Iron Saturation Ferritin ASSESSMENT AND PLAN: 57 yom with PMHx of ASHD, AR, S/P CABG, PCI/stent, ICD implant(2007), HTN, hypercholesterolemia, IDDM on insulin pump, CKD stage III -IV (baseline cr around 3) gout and 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 -Left ureteral stone with left mild to moderate hydronephrosis s/p Left PCN -HECTOR on CKD stage IV -Hyperkalemia, resolved -Acute on chronic anemia, suspect from bloody drainage/HECTOR -Elevated troponin likely demand induced from above vs severe HECTOR rather than ACS -Ischemic cardiomyopathy -CAD s/p CABG/AR/PCI, abnormal stress test in 06/2017 -IDDM on insulin pump -HTN -s/p AICD -Gout Plan: Urology input noted. Bloody drainage from Left PCN. Discussed with Dr. Bertrand, strongly recommend continuation of ASA 81 mg to avoid risk of left instent thrombosis. Risks of holding outweigh benefits as discussed with hi. Resume ASA 81 mg with close monitoring. Levaquin renal dosing. Follow up nephrostomy tube drainage cultures. Monitor lytes closely. Continue joiner for now. Renal input noted. Hold entresto/plavix. Continue statin/coreg/ranexa/ASA Judicious IVF with close monitoring of volume status. GIPPX with ranitidine DVTPPX, on hold for nephrostomy tube, resume pending surgical plans. SCDs in bed Plan discussed with patient in detail, all questions answered.
[2018-06-03 08:33] LABS: ALBUMIN 2.6 g/dl (3.4-5.0); ALK PHOS 110 U/L (45-117); ANION GAP 8 MMOL/L (8-16); BILIRUBIN,TOTAL 0.4 mg/dL (0.2-1); BLOOD UREA NITROGEN 84 mg/dL (7-18); CHLORIDE 109 mmol/L (98-107); CO2 20 mmol/L (21-32); CREATININE 6.1 mg/dL (0.55-1.3); GLUCOSE,RANDOM 218 mg/dL (74-106); MAGNESIUM 1.9 mg/dL (1.8-2.4); PHOSPHOROUS 5.2 mg/dL (2.5-4.9); POTASSIUM 4.4 mmol/L (3.5-5.1); SGOT/AST 10 U/L (15-37); SGPT/ALT 18 U/L (13-61); SODIUM 137 mmol/L (136-145); TOT PROT 6.6 g/dl (6.4-8.2)
[2018-06-03] MEDS: TAMSULOSIN HCL 0.4 MG CAP PO SCH (09:40)
[2018-06-03] MEDS ORDERED: ASPIRIN 81 MG CHEWABLE TABLETS PO SCH (10:00)
[2018-06-03] MEDS: RANITIDINE HCL 150 MG TABLET (FP) PO SCH ×2 (10:37→21:28)
[2018-06-03] MEDS: RANOLAZINE E.R. 500 MG TABLET (FP) PO SCH ×2 (10:37→21:27)
[2018-06-03] MEDS: CARVEDILOL 25 MG TABLET (FP) PO SCH ×2 (10:37→21:27)
--- NOTE | 2018-06-03 10:52 | PN ---
Progress Note, Physician History of Present Illness: Post left NPT with hematuria. - Current Medication List Current Medications: Active Medications Acetaminophen (Tylenol -) 650 mg PO Q4H PRN PRN Reason: PAIN LEVEL 1-5 Last Admin: 06/03/18 06:44 Dose: 650 mg Atorvastatin Calcium (Lipitor -) 80 mg PO HS [facility] Last Admin: 06/02/18 22:06 Dose: 80 mg Carvedilol (Coreg -) 25 mg PO BID [facility] Last Admin: 06/03/18 10:37 Dose: 25 mg Levofloxacin (Levaquin 500 Mg Premixed Ivpb -) 500 mg in 100 mls @ 100 mls/hr IVPB DAILY [facility]; Protocol Last Admin: 06/03/18 10:43 Dose: 100 mls/hr Insulin Aspart (Novolog Vial Sliding Scale -) 1 vial SQ TIDAC [facility]; Protocol Last Admin: 06/03/18 06:09 Dose: 6 units Insulin Detemir (Levemir Vial) 20 units SQ AM [facility] Last Admin: 06/03/18 06:09 Dose: 20 units Morphine Sulfate (Morphine Sulfate) 1 mg IVPUSH Q4H PRN PRN Reason: PAIN LEVEL 6-10 Ranitidine HCl (Zantac -) 150 mg PO BID [facility] Last Admin: 06/03/18 10:37 Dose: 150 mg Ranolazine (Ranexa -) 500 mg PO BID [facility] Last Admin: 06/03/18 10:37 Dose: 500 mg Tamsulosin HCl (Flomax -) 0.4 mg PO DAILY@0830 [facility] Last Admin: 06/03/18 09:40 Dose: 0.4 mg - Objective Vital Signs: Vital Signs Temperature 97.9 F 06/03/18 10:31 Pulse Rate 84 06/03/18 10:31 Respiratory Rate 20 06/03/18 10:31 Blood Pressure 113/67 06/03/18 10:31 O2 Sat by Pulse Oximetry (%) 98 06/02/18 21:00 Constitutional: Yes: No Distress, Calm Neck: Yes: Supple Cardiovascular: Yes: Regular Rate and Rhythm, Murmur (2/6 SM) Respiratory: Yes: Regular, Diminished Gastrointestinal: Yes: Normal Bowel Sounds, Soft, Abdomen, Obese Genitourinary: Yes: CVA Tenderness - Left, Hematuria, Other (Left NPT) Edema: No Labs: CBC, BMP 06/03/18 07:00 06/03/18 07:00 INR, PTT INR 1.14 (0.83-1.09) H 06/01/18 12:08 Problem List - Problems (1) Acute on chronic kidney failure Code(s): N17.9 - ACUTE KIDNEY FAILURE, UNSPECIFIED; N18.9 - CHRONIC KIDNEY DISEASE, UNSPECIFIED (2) Renal colic on left side Code(s): N23 - UNSPECIFIED RENAL COLIC (3) Aortic valve stenosis Code(s): I35.0 - NONRHEUMATIC AORTIC (VALVE) STENOSIS Qualifiers: Cardiac valve disease etiology: nonrheumatic Qualified Code(s): I35.0 - Nonrheumatic aortic (valve) stenosis (4) CAD (coronary artery disease) Code(s): I25.10 - ATHSCL HEART DISEASE OF [place] CORONARY ARTERY W/O ANG PCTRS Qualifiers: Coronary Disease-Associated Artery/Lesion type: [place] artery [place] vs. transplanted heart: [place] heart Associated angina: without angina Qualified Code(s): I25.10 - Atherosclerotic heart disease of [place] coronary artery without angina pectoris (5) CKD stage 4 due to type 2 diabetes mellitus Code(s): E11.22 - TYPE 2 DIABETES MELLITUS W DIABETIC CHRONIC KIDNEY DISEASE; N18.4 - CHRONIC KIDNEY DISEASE, STAGE 4 (SEVERE) (6) Demand ischemia Code(s): I24.8 - OTHER FORMS OF ACUTE ISCHEMIC HEART DISEASE (7) Diabetes mellitus Code(s): E11.9 - TYPE 2 DIABETES MELLITUS WITHOUT COMPLICATIONS Qualifiers: Diabetes mellitus type: type 2 Diabetes mellitus complication status: without complication (8) HLD (hyperlipidemia) Code(s): E78.5 - HYPERLIPIDEMIA, UNSPECIFIED Qualifiers: Hyperlipidemia type: pure hypercholesterolemia Qualified Code(s): E78.00 - Pure hypercholesterolemia, unspecified (9) HTN (hypertension) Code(s): I10 - ESSENTIAL (PRIMARY) HYPERTENSION Qualifiers: Hypertension type: essential hypertension Qualified Code(s): I10 - Essential (primary) hypertension (10) History of coronary artery stent placement Code(s): Z95.5 - PRESENCE OF CORONARY ANGIOPLASTY IMPLANT AND GRAFT (11) Hx of CABG Code(s): Z95.1 - PRESENCE OF AORTOCORONARY BYPASS GRAFT (12) ICD (implantable cardioverter-defibrillator) in place Code(s): Z95.810 - PRESENCE OF AUTOMATIC (IMPLANTABLE) CARDIAC DEFIBRILLATOR (13) Sleep apnea Code(s): G47.30 - SLEEP APNEA, UNSPECIFIED Qualifiers: Sleep apnea type: obstructive Qualified Code(s): G47.33 - Obstructive sleep apnea (adult) (pediatric) (14) Systolic dysfunction without heart failure Code(s): I51.9 - HEART DISEASE, UNSPECIFIED Assessment/Plan 06/02/2018 Echo: Mod CARLOS, mildly dilated LV with mild-mod decreased LV fxn, mild MR, TR 1. Acute on CKD IV secondary to left obstruction from kidney stone post nephrostomy decompression 06/02/18 2. CKD stage 4 (baseline Cr 3.8) secondary to suspected diabetic nephropathy 3. Systolic LV systolic dysfunction, euvolemic 4. Aortic valve disease - aortic stenosis 5. CAD, history of SC, s/p CABG, PCI/stent - elevated troponin referable to demand ischemia 6. Hypertension 7. Hypercholesterolemia 8. Post ICD implant due to low LVEF and CHF 9. Anemia of CKD 10. Gout 11. OSAS on cpap PLAN: 1. Judicious hydration and monitor renal recovery post nephrostomy 2. Currently on Carvedilol 25 bid, Ranexa 500 bid and Lipitor 80 qhs 3. Resume ASA 81 qd to decrease risk of very late stent thrombosis, hold Plavix 75 qd for now pending procedures, 4. Resume Entresto 49/51 bid and Demadex 20 qd once renal fxn and hyperkalemia stabilized 5. Troponins plateaued, patient may proceed with cystoscopy, stone removal, ureteral stent and removal of nephrostomy tube placement from CV-standpoint 6. DVT prophylaxis, empiric abx course
[2018-06-03] MEDS: ASPIRIN 81 MG CHEWABLE TABLETS PO SCH (13:43)
[2018-06-03] MEDS ORDERED: SODIUM CHLORIDE 0.45% 1,000 ML IV SCH (15:00)
--- NOTE | 2018-06-03 16:00 | PN ---
Progress Note, Physician Chief Complaint: The patient seen in his room Feeling well. Nephrostomy tube draining heme-stained urine. The patient has no fever. Minimal discomfort on urination History of Present Illness: This is a 57 year old gentleman with CKD stage 4, CAD, , Hyperlipidemia, DM, hx of non-obstructing nephrolithiasis who presented with flank and back pain and found to have left sided hydronephrosis with HECTOR. Had left percutaneous ephrostomy. - Current Medication List Current Medications: Active Medications Acetaminophen (Tylenol -) 650 mg PO Q4H PRN PRN Reason: PAIN LEVEL 1-5 Last Admin: 06/03/18 06:44 Dose: 650 mg Aspirin (Asa -) 81 mg PO DAILY [facility] Last Admin: 06/03/18 13:43 Dose: 81 mg Atorvastatin Calcium (Lipitor -) 80 mg PO HS [facility] Last Admin: 06/02/18 22:06 Dose: 80 mg Carvedilol (Coreg -) 25 mg PO BID [facility] Last Admin: 06/03/18 10:37 Dose: 25 mg Sodium Chloride (1/2 Normal Saline) 1,000 mls @ 100 mls/hr IV ASDIR [facility] Insulin Aspart (Novolog Vial Sliding Scale -) 1 vial SQ TIDAC [facility]; Protocol Last Admin: 06/03/18 11:25 Dose: 8 units Insulin Detemir (Levemir Vial) 20 units SQ AM [facility] Last Admin: 06/03/18 06:09 Dose: 20 units Morphine Sulfate (Morphine Sulfate) 1 mg IVPUSH Q4H PRN PRN Reason: PAIN LEVEL 6-10 Ranitidine HCl (Zantac -) 150 mg PO BID [facility] Last Admin: 06/03/18 10:37 Dose: 150 mg Ranolazine (Ranexa -) 500 mg PO BID [facility] Last Admin: 06/03/18 10:37 Dose: 500 mg Tamsulosin HCl (Flomax -) 0.4 mg PO DAILY@0830 [facility] Last Admin: 06/03/18 09:40 Dose: 0.4 mg - Objective Vital Signs: Vital Signs Temperature 97.9 F 06/03/18 10:31 Pulse Rate 84 06/03/18 10:31 Respiratory Rate 20 06/03/18 10:31 Blood Pressure 113/67 06/03/18 10:31 O2 Sat by Pulse Oximetry (%) 98 06/02/18 21:00 Constitutional: Yes: Well Nourished, Calm Eyes: Yes: Conjunctiva Clear Neck: Yes: Trachea Midline Cardiovascular: Yes: Regular Rate and Rhythm Respiratory: Yes: CTA Bilaterally, Diminished Gastrointestinal: Yes: Normal Bowel Sounds, Soft Genitourinary: Yes: Hematuria, Other (percutaneous nephrostomy) Musculoskeletal: Yes: Back Pain, Muscle Pain Extremities: No: Calf Tenderness Edema: No Neurological: Yes: Alert, Oriented Labs: CBC, BMP 06/03/18 07:00 06/03/18 07:00 INR, PTT INR 1.14 (0.83-1.09) H 06/01/18 12:08 Problem List - Problems (1) Obstructive uropathy Code(s): N13.9 - OBSTRUCTIVE AND REFLUX UROPATHY, UNSPECIFIED (2) Nephrolithiasis Code(s): N20.0 - CALCULUS OF KIDNEY (3) Acute on chronic kidney failure Code(s): N17.9 - ACUTE KIDNEY FAILURE, UNSPECIFIED; N18.9 - CHRONIC KIDNEY DISEASE, UNSPECIFIED (4) Renal colic on left side Code(s): N23 - UNSPECIFIED RENAL COLIC (5) Anemia Code(s): D64.9 - ANEMIA, UNSPECIFIED Qualifiers: Anemia type: unspecified type Qualified Code(s): D64.9 - Anemia, unspecified (6) Aortic valve stenosis Code(s): I35.0 - NONRHEUMATIC AORTIC (VALVE) STENOSIS Qualifiers: Cardiac valve disease etiology: nonrheumatic Qualified Code(s): I35.0 - Nonrheumatic aortic (valve) stenosis (7) CKD stage 4 due to type 2 diabetes mellitus Code(s): E11.22 - TYPE 2 DIABETES MELLITUS W DIABETIC CHRONIC KIDNEY DISEASE; N18.4 - CHRONIC KIDNEY DISEASE, STAGE 4 (SEVERE) (8) Chronic kidney disease (CKD) Code(s): N18.9 - CHRONIC KIDNEY DISEASE, UNSPECIFIED Qualifiers: Chronic kidney disease stage: stage 3 (moderate) Qualified Code(s): N18.3 - Chronic kidney disease, stage 3 (moderate) Assessment/Plan This is a 57 year old gentleman with CKD stage 4, CAD, , Hyperlipidemia, DM, hx of non-obstructing nephrolithiasis who presented with flank and back pain and found to have left sided hydronephrosis with HECTOR. The patient has had Percutaeous nephrostomy. Heme-stained urine trauma related from the surgery PLAN: Will continue to monitor the renal functios. IV fluids ordered. Renal functions expected to improve towards his baseline. No immediate indication for RECEPTIONIST NURSE. Thank you. Will follow with you. Priscilla Guevara MD
[2018-06-03] MEDS: ATORVASTATIN CA 80 MG TABLET (FP) PO SCH (21:28)
[2018-06-04] MEDS: INSULIN (LEVEMIR) 100 UNITS/ML UNITS SQ SCH (06:12)
[2018-06-04] MEDS: INSULIN SLIDING SCALE (NOVOLOG) 1 VIAL SQ SCH ×3 (06:14→16:56)
[2018-06-04 07:43] LABS: HEMATOCRIT 23.8 % (35.4-49); HEMOGLOBIN 7.9 GM/dL (11.7-16.9); MCH 29.8 pg (25.7-33.7); MCHC 33.2 g/dl (32.0-35.9); MEAN CELL VOLUME 89.7 fl (80-96); MEAN PLT VOLUME 6.5 fl (7.5-11.1); PLATELET COUNT 199 K/MM3 (134-434); RBC 2.65 M/mm3 (4.00-5.60); RDW 14.2 % (11.9-15.9); WHITE BLOOD COUNT 5.8 K/mm3 (4.0-10.0)
[2018-06-04 08:06] LABS: SERUM IRON SATURATION 11 % (15-55); TOTAL IRON BINDING CAPACITY 239 ug/dL (250-450); UIBC 212 ug/dL (111-343)
--- NOTE | 2018-06-04 08:07 | CONSULT ---
Consult - text type - Consultation Consultation Note: CC: Acute Renal Failure s/p left PCNT for obstructing left ureteral stone HPI: Patient is comfortable. Renal function still has not normalized to baseline. Patient denies nausea, vomiting, fever, chills, or colic PE VSS; afeb abd-soft, non-tender; no CVAT; left PCNT drainage is bloody and site is clean imp ARF left ureteral stone with hydro s/p PCNT gross hematuria on anticoagulation plan patient will be scheduled for Thursday for left ureteral stent placement and removal of left PCNT follow renal function
[2018-06-04 08:35] LABS: ALBUMIN 2.3 g/dl (3.4-5.0); ALK PHOS 100 U/L (45-117); ANION GAP 12 MMOL/L (8-16); BILIRUBIN,TOTAL 0.3 mg/dL (0.2-1); BLOOD UREA NITROGEN 88 mg/dL (7-18); CALCIUM 7.9 mg/dL (8.5-10.1); CHLORIDE 107 mmol/L (98-107); CO2 19 mmol/L (21-32); CREATININE 5.7 mg/dL (0.55-1.3); GLUCOSE,RANDOM 284 mg/dL (74-106); MAGNESIUM 1.9 mg/dL (1.8-2.4); PHOSPHOROUS 5.4 mg/dL (2.5-4.9); POTASSIUM 4.3 mmol/L (3.5-5.1); SGOT/AST 10 U/L (15-37); SGPT/ALT 16 U/L (13-61); SODIUM 138 mmol/L (136-145); TOT PROT 6.3 g/dl (6.4-8.2)
--- NOTE | 2018-06-04 10:19 | PN ---
Progress Note, Physician History of Present Illness: Post left NPT with hematuria. Denies chest pain or dyspnea, receiving IV iron. - Current Medication List Current Medications: Active Medications Acetaminophen (Tylenol -) 650 mg PO Q4H PRN PRN Reason: PAIN LEVEL 1-5 Last Admin: 06/03/18 21:28 Dose: 650 mg Aspirin (Asa -) 81 mg PO DAILY [facility] Last Admin: 06/03/18 13:43 Dose: 81 mg Atorvastatin Calcium (Lipitor -) 80 mg PO HS [facility] Last Admin: 06/03/18 21:28 Dose: 80 mg Carvedilol (Coreg -) 25 mg PO BID [facility] Last Admin: 06/03/18 21:27 Dose: 25 mg Sodium Chloride (1/2 Normal Saline) 1,000 mls @ 100 mls/hr IV ASDIR [facility] Last Admin: 06/03/18 18:30 Dose: 100 mls/hr Insulin Aspart (Novolog Vial Sliding Scale -) 1 vial SQ TIDAC [facility]; Protocol Last Admin: 06/04/18 06:14 Dose: 8 units Insulin Detemir (Levemir Vial) 20 units SQ AM [facility] Last Admin: 06/04/18 06:12 Dose: 20 units Morphine Sulfate (Morphine Sulfate) 1 mg IVPUSH Q4H PRN PRN Reason: PAIN LEVEL 6-10 Ranitidine HCl (Zantac -) 150 mg PO BID [facility] Last Admin: 06/03/18 21:28 Dose: 150 mg Ranolazine (Ranexa -) 500 mg PO BID [facility] Last Admin: 06/03/18 21:27 Dose: 500 mg Tamsulosin HCl (Flomax -) 0.4 mg PO DAILY@0830 [facility] Last Admin: 06/03/18 09:40 Dose: 0.4 mg - Objective Vital Signs: Vital Signs Temperature 98.3 F 06/04/18 06:00 Pulse Rate 74 06/04/18 06:00 Respiratory Rate 20 06/04/18 06:00 Blood Pressure 140/71 06/04/18 06:00 O2 Sat by Pulse Oximetry (%) 98 06/03/18 21:00 Constitutional: Yes: No Distress, Calm Neck: Yes: Supple Cardiovascular: Yes: Regular Rate and Rhythm Respiratory: Yes: Regular, Diminished Gastrointestinal: Yes: Normal Bowel Sounds, Soft, Abdomen, Obese Genitourinary: Yes: CVA Tenderness - Left, Hematuria, Other (Left perc nephrostomy) Edema: No Labs: CBC, BMP 06/04/18 07:00 06/04/18 07:00 INR, PTT INR 1.14 (0.83-1.09) H 06/01/18 12:08 Problem List - Problems (1) Acute on chronic kidney failure Code(s): N17.9 - ACUTE KIDNEY FAILURE, UNSPECIFIED; N18.9 - CHRONIC KIDNEY DISEASE, UNSPECIFIED (2) Renal colic on left side Code(s): N23 - UNSPECIFIED RENAL COLIC (3) Aortic valve stenosis Code(s): I35.0 - NONRHEUMATIC AORTIC (VALVE) STENOSIS Qualifiers: Cardiac valve disease etiology: nonrheumatic Qualified Code(s): I35.0 - Nonrheumatic aortic (valve) stenosis (4) CAD (coronary artery disease) Code(s): I25.10 - ATHSCL HEART DISEASE OF [place] CORONARY ARTERY W/O ANG PCTRS Qualifiers: Coronary Disease-Associated Artery/Lesion type: [place] artery [place] vs. transplanted heart: [place] heart Associated angina: without angina Qualified Code(s): I25.10 - Atherosclerotic heart disease of [place] coronary artery without angina pectoris (5) CKD stage 4 due to type 2 diabetes mellitus Code(s): E11.22 - TYPE 2 DIABETES MELLITUS W DIABETIC CHRONIC KIDNEY DISEASE; N18.4 - CHRONIC KIDNEY DISEASE, STAGE 4 (SEVERE) (6) Demand ischemia Code(s): I24.8 - OTHER FORMS OF ACUTE ISCHEMIC HEART DISEASE (7) Diabetes mellitus Code(s): E11.9 - TYPE 2 DIABETES MELLITUS WITHOUT COMPLICATIONS Qualifiers: Diabetes mellitus type: type 2 Diabetes mellitus complication status: without complication (8) HLD (hyperlipidemia) Code(s): E78.5 - HYPERLIPIDEMIA, UNSPECIFIED Qualifiers: Hyperlipidemia type: pure hypercholesterolemia Qualified Code(s): E78.00 - Pure hypercholesterolemia, unspecified (9) HTN (hypertension) Code(s): I10 - ESSENTIAL (PRIMARY) HYPERTENSION Qualifiers: Hypertension type: essential hypertension Qualified Code(s): I10 - Essential (primary) hypertension (10) History of coronary artery stent placement Code(s): Z95.5 - PRESENCE OF CORONARY ANGIOPLASTY IMPLANT AND GRAFT (11) Hx of CABG Code(s): Z95.1 - PRESENCE OF AORTOCORONARY BYPASS GRAFT (12) ICD (implantable cardioverter-defibrillator) in place Code(s): Z95.810 - PRESENCE OF AUTOMATIC (IMPLANTABLE) CARDIAC DEFIBRILLATOR (13) Sleep apnea Code(s): G47.30 - SLEEP APNEA, UNSPECIFIED Qualifiers: Sleep apnea type: obstructive Qualified Code(s): G47.33 - Obstructive sleep apnea (adult) (pediatric) (14) Systolic dysfunction without heart failure Code(s): I51.9 - HEART DISEASE, UNSPECIFIED Assessment/Plan 06/02/2018 Echo: Mod CARLOS, mildly dilated LV with mild-mod decreased LV fxn, mild MR, TR 1. Acute on CKD IV secondary to left obstruction from kidney stone post nephrostomy decompression 06/02/18 2. CKD stage 4 (baseline Cr 3.8) secondary to suspected diabetic nephropathy 3. Systolic LV systolic dysfunction, euvolemic 4. Aortic valve disease - aortic stenosis 5. CAD, history of [place], s/p CABG, PCI/stent - elevated troponin referable to demand ischemia 6. Hypertension 7. Hypercholesterolemia 8. Post ICD implant due to low LVEF and CHF 9. Anemia of CKD 10. Gout 11. OSAS on cpap PLAN: 1. Judicious hydration and monitor renal recovery post nephrostomy 2. Currently on Carvedilol 25 bid, Ranexa 500 bid and Lipitor 80 qhs 3. Resumed ASA 81 qd to decrease risk of very late stent thrombosis, hold Plavix 75 qd for now pending procedures, IV iron and Venofer with monitor Hgb 4. Resume Entresto 49/51 bid and Demadex 20 qd once renal fxn and hyperkalemia stabilized 5. Troponins plateaued, patient may proceed with cystoscopy, stone removal, ureteral stent and removal of nephrostomy tube placement from CV-standpoint 6. DVT prophylaxis, empiric abx course
[2018-06-04] MEDS ORDERED: INSULIN (LEVEMIR) 100 UNITS/ML UNITS SQ ONE (10:56)
[2018-06-04] MEDS ORDERED: IRON SUCROSE INJECTION 200 MG in SODIUM CHLORIDE 90 ML IVPB ONE (11:31)
[2018-06-04] MEDS ORDERED: EPOETIN ALFA 10,000 UNIT/1 ML VIAL SQ ONE (11:31)
[2018-06-04] MEDS: ASPIRIN 81 MG CHEWABLE TABLETS PO SCH (11:37)
[2018-06-04] MEDS: TAMSULOSIN HCL 0.4 MG CAP PO SCH (11:37)
[2018-06-04] MEDS: RANOLAZINE E.R. 500 MG TABLET (FP) PO SCH ×2 (11:37→22:26)
[2018-06-04] MEDS: CARVEDILOL 25 MG TABLET (FP) PO SCH ×2 (11:37→22:26)
[2018-06-04] MEDS: RANITIDINE HCL 150 MG TABLET (FP) PO SCH ×2 (11:38→22:26)
--- NOTE | 2018-06-04 13:13 | PN ---
Physical Exam: SUBJECTIVE: Patient seen and examined at bedside this morning. He is POD #2 s/p left nephrostomy tube. Urinated clear, light-yellow urine overnight without difficulty, or dysuria. Nephrostomy draining 100cc of sanguineous fluid. Denies fevers, chills, shortness of breath, chest pain, palpitations, abdominal pain, nausea, vomiting, diarrhea. OBJECTIVE: Vital Signs Period Temp Pulse Resp BP Sys/Gallo Pulse Ox Last 24 Hr 97.8 F-98.4 F 70-77 20-20 119-148/58-95 98 GENERAL: The patient is awake, alert, and fully oriented, in no acute distress. HEAD: Normocephalic, atraumatic. EYES: Right pupil round, reactive to light. Left pupil cloudy in appearance ( history of torn retina). Sclera anicteric, conjunctiva non injected b/l. ENT: Oropharynx clear without exudates, or erythema, moist mucous membranes. NECK: Trachea midline, supple without lymphadenopathy LUNGS: Good inspiratory effort, and air entry b/l. Breath sounds equal, clear to auscultation bilaterally. No wheezes, no crackles auscultated b/l. No accessory muscle use. HEART: Regular rate and rhythm, S1, S2. Holosystolic murmur auscultated over left sternal border, without radiation to carotids b/l. ABDOMEN: Obese, soft, nontender, nondistended. Normoactive bowel sounds, no guarding, no rebound, no hepatosplenomegaly. No CVA tenderness B/L. Nephrostomy tube draining sanguineous fluid. EXTREMITIES: 2+ radial and dorsalis pedis pulses b/l. Warm, well-perfused. No lower extremity edema or calf tenderness b/l. NEUROLOGICAL: Cranial nerves II through XII grossly intact. Normal speech. Strength 5/5 b/l upper extremities in flexion, extension, abduction, adduction. Strength 5/5 b/l lower extremities in hip flexion, extension, knee flexion, extension, dorsiflexion, plantarflexion. PSYCH: Mood and affect appropriate upon my encounter today. SKIN: Warm, dry, normal turgor. Right sided port for [place] pump noted. Nephrostomy tube site noted, clean and dry at left lower back. Laboratory Results - last 24 hr 1006/03/18 06/04/18 07:00 17:35 06:11 WBC RBC Hgb Hct MCV MCH MCHC RDW Plt Count MPV Sodium Potassium Chloride Carbon Dioxide Anion Gap BUN Creatinine Creat Clearance w eGFR POC Glucometer 356 332 Random Glucose Calcium Phosphorus Magnesium Iron 27 L TIBC 239 L Iron Saturation 11 L Total Bilirubin AST ALT Alkaline Phosphatase Total Protein Albumin Blood Type Antibody Screen Crossmatch 06/04/18 06/04/18 06/04/18 07:00 07:00 09:35 WBC 5.8 RBC 2.65 L Hgb 7.9 L Hct 23.8 L MCV 89.7 MCH 29.8 MCHC 33.2 RDW 14.2 Plt Count 199 MPV 6.5 L Sodium 138 Potassium 4.3 Chloride 107 Carbon Dioxide 19 L Anion Gap 12 BUN 88 H Creatinine 5.7 H Creat Clearance w eGFR 10.37 POC Glucometer Random Glucose 284 H Calcium 7.9 L Phosphorus 5.4 H Magnesium 1.9 Iron TIBC Iron Saturation Total Bilirubin 0.3 AST 10 L ALT 16 Alkaline Phosphatase 100 Total Protein 6.3 L Albumin 2.3 L Blood Type A POSITIVE Antibody Screen Negative Crossmatch See Detail Active Medications Generic Name Dose Route Start Last Admin Trade Name Freq PRN Reason Stop Dose Admin Acetaminophen 650 mg 06/03/18 06:27 06/03/18 21:28 Tylenol - PO 650 mg Q4H PRN Administration PAIN LEVEL 1-5 Aspirin 81 mg 06/03/18 12:00 06/04/18 11:37 Asa - PO 81 mg DAILY [facility] Administration Atorvastatin Calcium 80 mg 06/01/18 22:00 06/03/18 21:28 Lipitor - PO 80 mg HS [facility] Administration Carvedilol 25 mg 06/01/18 22:00 06/04/18 11:37 Coreg - PO 25 mg BID [facility] Administration Insulin Aspart 1 vial 06/02/18 17:17 06/04/18 12:09 Novolog Vial Sliding Scale - SQ 6 units TIDAC [facility] Administration Protocol Insulin Detemir 30 units 06/05/18 07:00 Levemir Vial SQ AM [facility] Morphine Sulfate 1 mg 06/01/18 18:47 Morphine Sulfate IVPUSH Q4H PRN PAIN LEVEL 6-10 Ranitidine HCl 150 mg 06/01/18 22:00 06/04/18 11:38 Zantac - PO 150 mg BID [facility] Administration Ranolazine 500 mg 06/01/18 22:00 06/04/18 11:37 Ranexa - PO 500 mg BID [facility] Administration Tamsulosin HCl 0.4 mg 06/01/18 18:59 06/04/18 11:37 Flomax - PO 0.4 mg DAILY@0830 [facility] Administration IMAGING -CT abdomen/ pelvis upon admission noted 6mm obstructing left distal ureteral stone ASSESSMENT/PLAN: Patient is a 57 year old male with history of insulin dependent diabetes mellitus (with insulin pump), chronic kidney disease, hypertension, hyperlipidemia, coronary artery disease (s/p CABG, and AICD), aortic stenosis, and HFrEF presents with nausea and left flank pain. Admitted for obstructing nephrolithiasis. Obstructing nephrolithiasis Patient is POD#2 s/p left nephrostomy tube placement. -Urology consult (Dr. Sales) appreciated. Patient for possible stent placement, and nephrostomy tube removal on Thursday. -Tamsulosin 0.4mg PO daily -Pain control with tylenol 650mg PO Q6H PRN pain 1-5 -Pain control with morphine 1mg Q4H PRN pain 6-10 -Levaquin (renally dosed) at 250mg IV Q48H. Acute on Chronic kidney disease -Etiology likely secondary to obstructing stone. Cr decreasing to 5.7 today -Nephrology consult (Dr. Pendleton) appreciated. CKD stage IV, baseline Cr 3.8 Normocytic anemia -Hb 7.9 Hct 23.8 today. -Anemia likely secondary to chronic kidney disease, in addition to acute blood loss s/p nephrostomy tube procedure. -Iron 27, TIBC 239, Iron saturation 11, Ferritin 108. Studies suggestive of iron deficiency contributing to anemia -Will closely monitor Hb/ Hct. -Procrit 10,000units subq -Iron sucrose 200mg IV CAD, Troponinemia -0.16 -> 0.15 likely demand ischemia. -Cardiology consult (Dr. Bertrand) appreciated. -Coreg 25mg PO BID -Ranexa 500mg PO BID -Aspirin 81mg PO daily, with cardiology recommendation Hyperkalemia -Resolved. Potassium 4.3 today Insulin dependent diabetes mellitis -Will hold insulin pump while hospitalized -Insulin Levemir increased to 30 units subq AM -ISS TIDAC -BGM ACHS HLD -Atorvastatin 80mg PO HS FEN -No IV fluids -Follow CMP -Diabetic, renal diet Prophylaxis -Heparin 5000units subq TID (held as patient is POD #2 s/p nephrostomy tube and draining sanguinous discharge. will reinstate with urology recommendation) -SCDs b/l lower extremities -Ranitidine 150mg PO BID Disposition -Continue care in medical-surgical floor Visit type - Emergency Visit Emergency Visit: Yes ED Registration Date: 06/01/18 Care time: The patient presented to the Emergency Department on the above date and was hospitalized for further evaluation of their emergent condition. - New Patient This patient is new to me today: No - Critical Care Critical Care patient: No - Discharge Referral Referred to [facility] No
--- NOTE | 2018-06-04 13:26 | PN ---
Progress Note (short form) - Note Progress Note: Renal follow up for HECTOR on CKD Pt seen and examined at the bedside no acute complaints no sob, cp making urine Vital Signs Temperature 98.3 F 06/04/18 06:00 Pulse Rate 74 06/04/18 06:00 Respiratory Rate 20 06/04/18 06:00 Blood Pressure 140/71 06/04/18 06:00 O2 Sat by Pulse Oximetry (%) 98 06/03/18 21:00 NAD RRR CTA no LE edema nephrostomy with bloody urine CBC, BMP 06/04/18 07:00 06/04/18 07:00 Current Medications Acetaminophen (Tylenol -) 650 mg PO Q4H PRN PRN Reason: PAIN LEVEL 1-5 Last Admin: 06/03/18 21:28 Dose: 650 mg Aspirin (Asa -) 81 mg PO DAILY [facility] Last Admin: 06/04/18 11:37 Dose: 81 mg Atorvastatin Calcium (Lipitor -) 80 mg PO HS [facility] Last Admin: 06/03/18 21:28 Dose: 80 mg Carvedilol (Coreg -) 25 mg PO BID [facility] Last Admin: 06/04/18 11:37 Dose: 25 mg Insulin Aspart (Novolog Vial Sliding Scale -) 1 vial SQ TIDAC [facility]; Protocol Last Admin: 06/04/18 12:09 Dose: 6 units Insulin Detemir (Levemir Vial) 30 units SQ AM [facility] Morphine Sulfate (Morphine Sulfate) 1 mg IVPUSH Q4H PRN PRN Reason: PAIN LEVEL 6-10 Ranitidine HCl (Zantac -) 150 mg PO BID [facility] Last Admin: 06/04/18 11:38 Dose: 150 mg Ranolazine (Ranexa -) 500 mg PO BID [facility] Last Admin: 06/04/18 11:37 Dose: 500 mg Tamsulosin HCl (Flomax -) 0.4 mg PO DAILY@0830 [facility] Last Admin: 06/04/18 11:37 Dose: 0.4 mg 57 year old gentleman with CKD stage 4, CAD, , Hyperlipidemia, DM, hx of non- obstructing nephrolithiasis who presented with flank and back pain and found to have left sided hydronephrosis with HECTOR. #HECTOR secondary to unilateral obstruction from kidney stone #CKD stage 4 (baseline Cr 3.8) secondary to suspected diabetic nephropathy #Constipation #Acute anemia #Mild Hyperkalemia #Metabolic acidosis Renal function slowly improvoing for urologic procedure on thursday will give IV iron and Venofer today repeat cbc this evening Jose Manuel Pendleton DO
--- NOTE | 2018-06-04 14:22 | PN ---
Teaching Attending Note Name of Resident: Celso Collins ATTENDING PHYSICIAN STATEMENT I saw and evaluated the patient. I reviewed the resident's note and discussed the case with the resident. I agree with the resident's findings and plan as documented with exceptions below. SUBJECTIVE: Patient seen and examined. No abdominal or back pain, fevers, or new concerns. No chest pain, dyspnea, dizziness noted. OBJECTIVE: Vital Signs Period Temp Pulse Resp BP Sys/Gallo Pulse Ox Last 24 Hr 97.8 F-98.4 F 70-77 20-20 119-148/58-95 98 Intake & Output 06/01/18 06/02/18 06/03/18 06/04/18 23:59 23:59 23:59 23:59 Intake Total 200 2100 1800 1680 Output Total 400 580 780 250 Balance -200 1520 1020 1430 Weight 271 lb 6.4 oz 269 lb 9.6 oz 171 lb 7 oz General: lying in bed in no acute distress Chest: CTAB, no rales or wheezing Abdomen:soft, obese, NT, no suprapubic or CVA tenderness, bloody drainage in left PCN tube Extremities: no edema Active Medications Acetaminophen (Tylenol -) 650 mg PO Q4H PRN PRN Reason: PAIN LEVEL 1-5 Last Admin: 06/03/18 21:28 Dose: 650 mg Aspirin (Asa -) 81 mg PO DAILY [facility] Last Admin: 06/04/18 11:37 Dose: 81 mg Atorvastatin Calcium (Lipitor -) 80 mg PO HS [facility] Last Admin: 06/03/18 21:28 Dose: 80 mg Carvedilol (Coreg -) 25 mg PO BID [facility] Last Admin: 06/04/18 11:37 Dose: 25 mg Insulin Aspart (Novolog Vial Sliding Scale -) 1 vial SQ TIDAC [facility]; Protocol Last Admin: 06/04/18 12:09 Dose: 6 units Insulin Detemir (Levemir Vial) 30 units SQ AM [facility] Morphine Sulfate (Morphine Sulfate) 1 mg IVPUSH Q4H PRN PRN Reason: PAIN LEVEL 6-10 Ranitidine HCl (Zantac -) 150 mg PO BID [facility] Last Admin: 06/04/18 11:38 Dose: 150 mg Ranolazine (Ranexa -) 500 mg PO BID [facility] Last Admin: 06/04/18 11:37 Dose: 500 mg Tamsulosin HCl (Flomax -) 0.4 mg PO DAILY@0830 [facility] Last Admin: 06/04/18 11:37 Dose: 0.4 mg Laboratory Results - last 24 hr 06/03/18 06/03/18 06/04/18 07:00 17:35 06:11 WBC RBC Hgb Hct MCV MCH MCHC RDW Plt Count MPV Sodium Potassium Chloride Carbon Dioxide Anion Gap BUN Creatinine Creat Clearance w eGFR POC Glucometer 356 332 Random Glucose Calcium Phosphorus Magnesium Iron 27 L TIBC 239 L Iron Saturation 11 L Total Bilirubin AST ALT Alkaline Phosphatase Total Protein Albumin Blood Type Antibody Screen Crossmatch 06/04/18 06/04/18 06/04/18 07:00 07:00 09:35 WBC 5.8 RBC 2.65 L Hgb 7.9 L Hct 23.8 L MCV 89.7 MCH 29.8 MCHC 33.2 RDW 14.2 Plt Count 199 MPV 6.5 L Sodium 138 Potassium 4.3 Chloride 107 Carbon Dioxide 19 L Anion Gap 12 BUN 88 H Creatinine 5.7 H Creat Clearance w eGFR 10.37 POC Glucometer Random Glucose 284 H Calcium 7.9 L Phosphorus 5.4 H Magnesium 1.9 Iron TIBC Iron Saturation Total Bilirubin 0.3 AST 10 L ALT 16 Alkaline Phosphatase 100 Total Protein 6.3 L Albumin 2.3 L Blood Type A POSITIVE Antibody Screen Negative Crossmatch See Detail 06/04/18 12:04 WBC RBC Hgb Hct MCV MCH MCHC RDW Plt Count MPV Sodium Potassium Chloride Carbon Dioxide Anion Gap BUN Creatinine Creat Clearance w eGFR POC Glucometer 270 Random Glucose Calcium Phosphorus Magnesium Iron TIBC Iron Saturation Total Bilirubin AST ALT Alkaline Phosphatase Total Protein Albumin Blood Type Antibody Screen Crossmatch Microbiology 06/02/18 14:12 Urine - Urine Nephrostomy Tube Left Urine Culture - Final NO GROWTH OBTAINED ASSESSMENT AND PLAN: 57 yom with PMHx of ASHD, ID, S/P CABG, PCI/stent, ICD implant(2007), HTN, hypercholesterolemia, IDDM on insulin pump, CKD stage III -IV (baseline cr around 3) gout and 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 -Left ureteral stone with left mild to moderate hydronephrosis s/p Left PCN 10/ 17 -HECTOR on CKD stage IV -Hyperkalemia, resolved -Acute on chronic anemia, suspect from bloody drainage/HECTOR, with component of hemodilution -Elevated troponin likely demand induced from above vs severe HECTOR rather than ACS -Ischemic cardiomyopathy -CAD s/p CABG/ID/PCI, abnormal stress test in 06/2017 -IDDM on insulin pump -HTN -s/p AICD -Gout Plan: Cr improving. Renal/urology/crardiology input noted. Bloody drainage from Left PCN. Discussed with Dr. Bertrand, strongly recommend continuation of ASA 81 mg to avoid risk of left instent thrombosis. Risks of holding outweigh benefits as discussed with hi. Hb drifting down. Discussed with DR. Pendleton, recommends IV iron today, holding off on transfusion. Monitor h/h. IVF per renal. Levaquin renal dosing. Nephrostomy tube drainage cultures neg so far. Monitor lytes closely. Strict I/Os,daily weights. Hold entresto/plavix. Continue statin/coreg/ranexa/ASA GIPPX with ranitidine DVTPPX, on hold for nephrostomy tube, resume pending surgical plans. SCDs in bed Plan discussed with patient in detail, all questions answered.
[2018-06-04 14:31] VITALS: BMI 38.5
[2018-06-04 18:26] LABS: HEMATOCRIT 25.4 % (35.4-49); HEMOGLOBIN 8.3 GM/dL (11.7-16.9); MCH 29.6 pg (25.7-33.7); MCHC 32.9 g/dl (32.0-35.9); MEAN PLT VOLUME 7.1 fl (7.5-11.1); PLATELET COUNT 270 K/MM3 (134-434); RBC 2.82 M/mm3 (4.00-5.60); RDW 14.7 % (11.9-15.9); WHITE BLOOD COUNT 5.3 K/mm3 (4.0-10.0)
[2018-06-04] MEDS: ATORVASTATIN CA 80 MG TABLET (FP) PO SCH (22:26)
[2018-06-05] MEDS ORDERED: INSULIN (LEVEMIR) 100 UNITS/ML UNITS SQ SCH (07:00)
[2018-06-05] MEDS: INSULIN SLIDING SCALE (NOVOLOG) 1 VIAL SQ SCH ×3 (08:07→17:08)
[2018-06-05 09:10] LABS: ALBUMIN 2.7 g/dl (3.4-5.0); ALK PHOS 107 U/L (45-117); ANION GAP 8 MMOL/L (8-16); BILIRUBIN,TOTAL 0.3 mg/dL (0.2-1); BLOOD UREA NITROGEN 77 mg/dL (7-18); CALCIUM 8.5 mg/dL (8.5-10.1); CHLORIDE 112 mmol/L (98-107); CO2 21 mmol/L (21-32); CREATININE 4.6 mg/dL (0.55-1.3); GLUCOSE,RANDOM 105 mg/dL (74-106); PHOSPHOROUS 4.8 mg/dL (2.5-4.9); POTASSIUM 3.8 mmol/L (3.5-5.1); SGOT/AST 14 U/L (15-37); SGPT/ALT 18 U/L (13-61); SODIUM 141 mmol/L (136-145)
--- NOTE | 2018-06-05 09:18 | PN ---
Physical Exam: SUBJECTIVE: Patient seen and examined at bedside this morning. He is POD #3 s/p left nephrostomy tube. He has been urinating clear, light-yellow urine yesterday without difficulty, or dysuria, however overnight admits one episode of blood-tinged urine. Nephrostomy draining 100cc of sanguineous fluid. Denies fevers, chills, shortness of breath, chest pain, palpitations, abdominal pain, nausea, vomiting, diarrhea. OBJECTIVE: Vital Signs Period Temp Pulse Resp BP Sys/Gallo Pulse Ox Last 24 Hr 72 F-98.1 F 69-75 18-20 141-166/68-78 98 GENERAL: The patient is awake, alert, and fully oriented, in no acute distress. HEAD: Normocephalic, atraumatic. EYES: Right pupil round, reactive to light. Left pupil cloudy in appearance ( history of torn retina). Sclera anicteric, conjunctiva non injected b/l. ENT: Oropharynx clear without exudates, or erythema, moist mucous membranes. NECK: Trachea midline, supple without lymphadenopathy LUNGS: Good inspiratory effort, and air entry b/l. Breath sounds equal, clear to auscultation bilaterally. No wheezes, no crackles auscultated b/l. No accessory muscle use. HEART: Regular rate and rhythm, S1, S2. Holosystolic murmur auscultated over left sternal border, without radiation to carotids b/l. ABDOMEN: Obese, soft, nontender, nondistended. Normoactive bowel sounds, no guarding, no rebound, no hepatosplenomegaly. No CVA tenderness B/L. Nephrostomy tube draining sanguineous fluid. EXTREMITIES: 2+ radial and dorsalis pedis pulses b/l. Warm, well-perfused. No lower extremity edema or calf tenderness b/l. NEUROLOGICAL: Cranial nerves II through XII grossly intact. Normal speech. Strength 5/5 b/l upper extremities in flexion, extension, abduction, adduction. Strength 5/5 b/l lower extremities in hip flexion, extension, knee flexion, extension, dorsiflexion, plantarflexion. PSYCH: Mood and affect appropriate upon my encounter today. SKIN: Warm, dry, normal turgor. Right sided port for [place] pump noted. Nephrostomy tube site noted, clean and dry at left lower back. Laboratory Results - last 24 hr 06/04/18 06/04/18 06/04/18 09:35 12:04 16:54 WBC RBC Hgb Hct MCV MCH MCHC RDW Plt Count MPV Sodium Potassium Chloride Carbon Dioxide Anion Gap BUN Creatinine Creat Clearance w eGFR POC Glucometer 270 360 Random Glucose Calcium Phosphorus Magnesium Total Bilirubin AST ALT Alkaline Phosphatase Total Protein Albumin Blood Type A POSITIVE Antibody Screen Negative Crossmatch See Detail 06/04/18 06/04/18 06/05/18 17:25 20:55 06:36 WBC 5.3 RBC 2.82 L Hgb 8.3 L Hct 25.4 L MCV 90.0 MCH 29.6 MCHC 32.9 RDW 14.7 Plt Count 270 D MPV 7.1 L Sodium Potassium Chloride Carbon Dioxide Anion Gap BUN Creatinine Creat Clearance w eGFR POC Glucometer 333 123 Random Glucose Calcium Phosphorus Magnesium Total Bilirubin AST ALT Alkaline Phosphatase Total Protein Albumin Blood Type Antibody Screen Crossmatch 06/05/18 07:00 WBC RBC Hgb Hct MCV MCH MCHC RDW Plt Count MPV Sodium 141 Potassium 3.8 Chloride 112 H Carbon Dioxide 21 Anion Gap 8 BUN 77 H Creatinine 4.6 H Creat Clearance w eGFR 13.28 POC Glucometer Random Glucose 105 Calcium 8.5 Phosphorus 4.8 Magnesium 2.0 Total Bilirubin 0.3 AST 14 L ALT 18 Alkaline Phosphatase 107 Total Protein 7.0 Albumin 2.7 L Blood Type Antibody Screen Crossmatch Active Medications Generic Name Dose Route Start Last Admin Trade Name Freq PRN Reason Stop Dose Admin Acetaminophen 650 mg 06/03/18 06:27 06/03/18 21:28 Tylenol - PO 650 mg Q4H PRN Administration PAIN LEVEL 1-5 Aspirin 81 mg 06/03/18 12:00 06/04/18 11:37 Asa - PO 81 mg DAILY CRIS Administration Atorvastatin Calcium 80 mg 06/01/18 22:00 06/04/18 22:26 Lipitor - PO 80 mg HS CRIS Administration Carvedilol 25 mg 06/01/18 22:00 06/04/18 22:26 Coreg - PO 25 mg BID CRIS Administration Insulin Aspart 1 vial 06/02/18 17:17 06/05/18 08:07 Novolog Vial Sliding Scale - SQ [facility] Insulin Detemir 30 units 06/05/18 07:00 06/05/18 08:07 Levemir Vial SQ Not Given AM [facility] Morphine Sulfate 1 mg 06/01/18 18:47 Morphine Sulfate IVPUSH Q4H PRN PAIN LEVEL 6-10 Ranitidine HCl 150 mg 06/01/18 22:00 06/04/18 22:26 Zantac - PO 150 mg BID CRIS Administration Ranolazine 500 mg 06/01/18 22:00 06/04/18 22:26 Ranexa - PO 500 mg BID CRIS Administration Tamsulosin HCl 0.4 mg 06/01/18 18:59 06/04/18 11:37 Flomax - PO 0.4 mg DAILY@0830 [facility]IS Administration IMAGING -CT abdomen/ pelvis upon admission noted 6mm obstructing left distal ureteral stone ASSESSMENT/PLAN: Patient is a 57 year old male with history of insulin dependent diabetes mellitus (with insulin pump), chronic kidney disease, hypertension, hyperlipidemia, coronary artery disease (s/p CABG, and AICD), aortic stenosis, and HFrEF presents with nausea and left flank pain. Admitted for obstructing nephrolithiasis. Obstructing nephrolithiasis Patient is POD#3 s/p left nephrostomy tube placement. -Urology consult (Dr. Sales) appreciated. Patient for possible stent placement, and nephrostomy tube removal on Thursday. -Tamsulosin 0.4mg PO daily -Pain control with tylenol 650mg PO Q6H PRN pain 1-5 -Pain control with morphine 1mg Q4H PRN pain 6-10 -Levaquin (renally dosed) at 250mg IV Q48H. Acute on Chronic kidney disease -Etiology likely secondary to obstructing stone. Cr decreasing to 4.6 today -Nephrology consult (Dr. Pendleton) appreciated. CKD stage IV, baseline Cr 3.8 Normocytic anemia -Hb 9.0 Hct 27.0 today. -Anemia likely secondary to chronic kidney disease, in addition to acute blood loss s/p nephrostomy tube procedure. -Iron 27, TIBC 239, Iron saturation 11, Ferritin 108. Studies suggestive of iron deficiency contributing to anemia -Will closely monitor Hb/ Hct. -Received Procrit 10,000units subq yesterday -Iron sucrose 200mg IV second dose today. CAD, Troponinemia -0.16 -> 0.15 likely demand ischemia. -Cardiology consult (Dr. Bertrand) appreciated. -Coreg 25mg PO BID -Ranexa 500mg PO BID -Aspirin 81mg PO daily, with cardiology recommendation Hyperkalemia -Resolved. Potassium 3.8 today Insulin dependent diabetes mellitis -Will hold insulin pump while hospitalized -Insulin Levemir increased to 30 units subq AM -ISS TIDAC -BGM ACHS HLD -Atorvastatin 80mg PO HS FEN -No IV fluids -Follow CMP -Diabetic, renal diet Prophylaxis -Heparin 5000units subq TID (held as patient is POD #3 s/p nephrostomy tube and draining sanguinous discharge. will reinstate with urology recommendation) -SCDs b/l lower extremities -Ranitidine 150mg PO BID Disposition -Continue care in medical-surgical floor Visit type - Emergency Visit Emergency Visit: Yes ED Registration Date: 06/01/18 Care time: The patient presented to the Emergency Department on the above date and was hospitalized for further evaluation of their emergent condition. - New Patient This patient is new to me today: No - Critical Care Critical Care patient: No - Discharge Referral Referred to [facility] No
[2018-06-05] MEDS ORDERED: PT OWN MED DRAWER 7, Y5N ONE (09:25)
[2018-06-05] MEDS: RANITIDINE HCL 150 MG TABLET (FP) PO SCH ×2 (09:27→21:33)
[2018-06-05] MEDS: ASPIRIN 81 MG CHEWABLE TABLETS PO SCH (09:27)
[2018-06-05] MEDS: CARVEDILOL 25 MG TABLET (FP) PO SCH ×2 (09:27→21:33)
[2018-06-05] MEDS: TAMSULOSIN HCL 0.4 MG CAP PO SCH (09:27)
[2018-06-05] MEDS: RANOLAZINE E.R. 500 MG TABLET (FP) PO SCH ×2 (09:27→21:33)
[2018-06-05 09:32] LABS: MCH 29.7 pg (25.7-33.7); MCHC 33.4 g/dl (32.0-35.9); MEAN PLT VOLUME 6.8 fl (7.5-11.1); PLATELET COUNT 253 K/MM3 (134-434); RBC 3.03 M/mm3 (4.00-5.60); RDW 14.7 % (11.9-15.9); WHITE BLOOD COUNT 4.9 K/mm3 (4.0-10.0)
[2018-06-05] MEDS ORDERED: IRON SUCROSE INJECTION 200 MG in SODIUM CHLORIDE 90 ML IVPB ONE (11:20)
--- NOTE | 2018-06-05 11:20 | PN ---
Progress Note (short form) - Note Progress Note: Renal follow up for HECTOR on CKD Pt seen and examined at the bedside feels well no acute complaints making urine via nephrostomy Vital Signs Temperature 97.7 F 06/05/18 09:41 Pulse Rate 81 06/05/18 09:41 Respiratory Rate 19 06/05/18 09:41 Blood Pressure 159/84 06/05/18 09:41 O2 Sat by Pulse Oximetry (%) 98 06/04/18 21:00 Intake & Output 06/02/18 06/03/18 06/04/18 06/05/18 23:59 23:59 23:59 23:59 Intake Total 2100 1800 2140 Output Total 269 024 7148 1100 Balance 1520 1020 490 -1100 Weight 122.289 kg 122.016 kg 121.79 kg NAD RRR CTA no LE edema nephrostomy with bloody urine CBC, BMP 06/05/18 07:00 06/05/18 07:00 Current Medications Acetaminophen (Tylenol -) 650 mg PO Q4H PRN PRN Reason: PAIN LEVEL 1-5 Last Admin: 06/03/18 21:28 Dose: 650 mg Aspirin (Asa -) 81 mg PO DAILY [facility] Last Admin: 06/05/18 09:27 Dose: 81 mg Atorvastatin Calcium (Lipitor -) 80 mg PO HS [facility] Last Admin: 06/04/18 22:26 Dose: 80 mg Carvedilol (Coreg -) 25 mg PO BID [facility] Last Admin: 06/05/18 09:27 Dose: 25 mg Insulin Aspart (Novolog Vial Sliding Scale -) 1 vial SQ TIDAC [facility]; Protocol Last Admin: 06/05/18 08:07 Dose: Not Given Insulin Detemir (Levemir Vial) 30 units SQ AM [facility] Last Admin: 06/05/18 08:07 Dose: Not Given Levofloxacin (Levaquin -) 250 mg PO Q2D@0600 [facility] Morphine Sulfate (Morphine Sulfate) 1 mg IVPUSH Q4H PRN PRN Reason: PAIN LEVEL 6-10 Ranitidine HCl (Zantac -) 150 mg PO BID [facility] Last Admin: 06/05/18 09:27 Dose: 150 mg Ranolazine (Ranexa -) 500 mg PO BID [facility] Last Admin: 06/05/18 09:27 Dose: 500 mg Tamsulosin HCl (Flomax -) 0.4 mg PO DAILY@0830 [facility] Last Admin: 06/05/18 09:27 Dose: 0.4 mg 57 year old gentleman with CKD stage 4, CAD, , Hyperlipidemia, DM, hx of non- obstructing nephrolithiasis who presented with flank and back pain and found to have left sided hydronephrosis with HECTOR. #HECTOR secondary to unilateral obstruction from kidney stone #CKD stage 4 (baseline Cr 3.8) secondary to suspected diabetic nephropathy #Constipation #Acute anemia #Mild Hyperkalemia #Metabolic acidosis Renal function improving toward baseline urine output is improved but not polyuric will give additional IV iron today Hgb improved, no need for transfusion at this time Continue flomax for urologic procedure on Thursday Jose Manuel Pendleton DO
[2018-06-05] MEDS ORDERED: POLYETHYLENE GLYCOL 3350 119 GM BTL PO ONE (11:21)
--- NOTE | 2018-06-05 11:30 | PN ---
Teaching Attending Note Name of Resident: Celso Collins ATTENDING PHYSICIAN STATEMENT Time of evaluation: 8:35 AM I saw and evaluated the patient. I reviewed the resident's note and discussed the case with the resident. I agree with the resident's findings and plan as documented with exceptions below. SUBJECTIVE: Patient seen and examined. no new pain or dyspnea. Still with bloody drainage, increased overnight. OBJECTIVE: Vital Signs Period Temp Pulse Resp BP Sys/Gallo Pulse Ox Last 24 Hr 72 F-98.1 F 69-81 18-20 141-166/68-84 98 Intake & Output 06/02/18 06/03/18 06/04/18 06/05/18 23:59 23:59 23:59 23:59 Intake Total 2100 1800 2140 460 Output Total 891 499 8095 1520 Balance 1520 1020 490 -1060 Weight 269 lb 9.6 oz 269 lb 268 lb 8 oz General: sitting in bed in no acute distress Chest: CTAB, no rales or wheezing Abdomen:Soft, obese, NT, left PCN tube draining bloody fluid Extremities: no edema Active Medications Acetaminophen (Tylenol -) 650 mg PO Q4H PRN PRN Reason: PAIN LEVEL 1-5 Last Admin: 06/03/18 21:28 Dose: 650 mg Aspirin (Asa -) 81 mg PO DAILY [facility] Last Admin: 06/05/18 09:27 Dose: 81 mg Atorvastatin Calcium (Lipitor -) 80 mg PO HS [facility] Last Admin: 06/04/18 22:26 Dose: 80 mg Carvedilol (Coreg -) 25 mg PO BID [facility] Last Admin: 06/05/18 09:27 Dose: 25 mg Iron Sucrose 200 mg/ Sodium (Chloride) 100 mls @ 100 mls/hr IVPB ONCE ONE Stop: 06/05/18 12:19 Insulin Aspart (Novolog Vial Sliding Scale -) 1 vial SQ TIDAC [facility]; Protocol Last Admin: 06/05/18 08:07 Dose: Not Given Insulin Detemir (Levemir Vial) 30 units SQ AM [facility] Last Admin: 06/05/18 08:07 Dose: Not Given Levofloxacin (Levaquin -) 250 mg PO Q2D@0600 [facility] Polyethylene Glycol (Miralax (For Daily Use) -) 17 gm PO ONCE ONE Stop: 06/05/18 11:22 Ranitidine HCl (Zantac -) 150 mg PO BID [facility] Last Admin: 06/05/18 09:27 Dose: 150 mg Ranolazine (Ranexa -) 500 mg PO BID [facility] Last Admin: 06/05/18 09:27 Dose: 500 mg Tamsulosin HCl (Flomax -) 0.4 mg PO DAILY@0830 [facility] Last Admin: 06/05/18 09:27 Dose: 0.4 mg Laboratory Results - last 24 hr 06/04/18 06/04/18 06/04/18 12:04 16:54 17:25 WBC 5.3 RBC 2.82 L Hgb 8.3 L Hct 25.4 L MCV 90.0 MCH 29.6 MCHC 32.9 RDW 14.7 Plt Count 270 D MPV 7.1 L Sodium Potassium Chloride Carbon Dioxide Anion Gap BUN Creatinine Creat Clearance w eGFR POC Glucometer 270 360 Random Glucose Calcium Phosphorus Magnesium Total Bilirubin AST ALT Alkaline Phosphatase Total Protein Albumin 06/04/18 06/05/18 06/05/18 20:55 06:36 07:00 WBC 4.9 RBC 3.03 L Hgb 9.0 L Hct 27.0 L MCV 89.0 MCH 29.7 MCHC 33.4 RDW 14.7 Plt Count 253 MPV 6.8 L Sodium Potassium Chloride Carbon Dioxide Anion Gap BUN Creatinine Creat Clearance w eGFR POC Glucometer 333 123 Random Glucose Calcium Phosphorus Magnesium Total Bilirubin AST ALT Alkaline Phosphatase Total Protein Albumin 06/05/18 07:00 WBC RBC Hgb Hct MCV MCH MCHC RDW Plt Count MPV Sodium 141 Potassium 3.8 Chloride 112 H Carbon Dioxide 21 Anion Gap 8 BUN 77 H Creatinine 4.6 H Creat Clearance w eGFR 13.28 POC Glucometer Random Glucose 105 Calcium 8.5 Phosphorus 4.8 Magnesium 2.0 Total Bilirubin 0.3 AST 14 L ALT 18 Alkaline Phosphatase 107 Total Protein 7.0 Albumin 2.7 L ASSESSMENT AND PLAN: 57 yom with PMHx of ASHD, [place], S/P CABG, PCI/stent, ICD implant(2007), HTN, hypercholesterolemia, IDDM on insulin pump, CKD stage III -IV (baseline cr around 3) gout and 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 -Left ureteral stone with left mild to moderate hydronephrosis s/p Left PCN -HECTOR on CKD stage IV -Hyperkalemia, resolved -Acute on chronic anemia, suspect from bloody drainage/HECTOR, with component of hemodilution -Elevated troponin likely demand induced from above vs severe HECTOR rather than ACS -Ischemic cardiomyopathy -CAD s/p CABG/FL/PCI, abnormal stress test in 06/2017 -IDDM on insulin pump -HTN -s/p AICD -Gout Plan: Cr improving. Renal/urology/crardiology input noted. Bloody drainage from Left PCN,increased drainage overnight, likely suggesting renal recovery. Plan for procedure on Thursday if cr continues to improve. Levaquin renal dosing. Nephrostomy tube drainage cultures neg so far. Discussed with Dr. Bertrand, strongly recommend continuation of ASA 81 mg to avoid risk of left instent thrombosis. Risks of holding outweigh benefits as discussed with high. Hb stable, s/p IV iron, repeat today, trend CBC. Off IVF. Monitor lytes closely. Strict I/Os,daily weights. Hold entresto/plavix. Continue statin/coreg/ranexa/ASA GIPPX with ranitidine DVTPPX, on hold pending surgical plans and bloody drainage. SCDs in bed Plan discussed with patient in detail, all questions answered.
--- NOTE | 2018-06-05 13:45 | PN ---
Progress Note, Physician Chief Complaint: Events noted Hematuria History of Present Illness: Patient was seen and examined. Awake and alert. Chart was reviewed Denies chest pain, SOB or palpitations - Current Medication List Current Medications: Active Medications Acetaminophen (Tylenol -) 650 mg PO Q4H PRN PRN Reason: PAIN LEVEL 1-5 Last Admin: 06/03/18 21:28 Dose: 650 mg Aspirin (Asa -) 81 mg PO DAILY [facility] Last Admin: 06/05/18 09:27 Dose: 81 mg Atorvastatin Calcium (Lipitor -) 80 mg PO HS [facility] Last Admin: 06/04/18 22:26 Dose: 80 mg Carvedilol (Coreg -) 25 mg PO BID [facility] Last Admin: 06/05/18 09:27 Dose: 25 mg Insulin Aspart (Novolog Vial Sliding Scale -) 1 vial SQ TIDAC [facility]; Protocol Last Admin: 06/05/18 12:24 Dose: Not Given Insulin Detemir (Levemir Vial) 30 units SQ AM [facility] Last Admin: 06/05/18 08:07 Dose: Not Given Levofloxacin (Levaquin -) 250 mg PO Q2D@0600 [facility] Last Admin: 06/05/18 11:45 Dose: 250 mg Ranitidine HCl (Zantac -) 150 mg PO BID [facility] Last Admin: 06/05/18 09:27 Dose: 150 mg Ranolazine (Ranexa -) 500 mg PO BID [facility] Last Admin: 06/05/18 09:27 Dose: 500 mg Tamsulosin HCl (Flomax -) 0.4 mg PO DAILY@0830 [facility] Last Admin: 06/05/18 09:27 Dose: 0.4 mg - Objective Vital Signs: Vital Signs Temperature 97.7 F 06/05/18 09:41 Pulse Rate 81 06/05/18 09:41 Respiratory Rate 19 06/05/18 09:41 Blood Pressure 159/84 06/05/18 09:41 O2 Sat by Pulse Oximetry (%) 98 06/04/18 21:00 HENT: Yes: Atraumatic Neck: Yes: Supple Cardiovascular: Yes: Regular Rate and Rhythm, S1, S2 Respiratory: Yes: CTA Bilaterally Gastrointestinal: Yes: Normal Bowel Sounds, Soft. No: Tenderness Edema: No Labs: CBC, BMP 06/05/18 07:00 06/05/18 07:00 INR, PTT INR 1.14 (0.83-1.09) H 06/01/18 12:08 Problem List - Problems (1) Acute on chronic kidney failure Code(s): N17.9 - ACUTE KIDNEY FAILURE, UNSPECIFIED; N18.9 - CHRONIC KIDNEY DISEASE, UNSPECIFIED (2) Nephrolithiasis Code(s): N20.0 - CALCULUS OF KIDNEY (3) Obstructive uropathy Code(s): N13.9 - OBSTRUCTIVE AND REFLUX UROPATHY, UNSPECIFIED (4) Acute on chronic systolic (congestive) heart failure Code(s): I50.23 - ACUTE ON CHRONIC SYSTOLIC (CONGESTIVE) HEART FAILURE (5) Anemia Code(s): D64.9 - ANEMIA, UNSPECIFIED Qualifiers: Anemia type: unspecified type Qualified Code(s): D64.9 - Anemia, unspecified (6) Aortic valve stenosis Code(s): I35.0 - NONRHEUMATIC AORTIC (VALVE) STENOSIS Qualifiers: Cardiac valve disease etiology: nonrheumatic Qualified Code(s): I35.0 - Nonrheumatic aortic (valve) stenosis (7) CAD (coronary artery disease) Code(s): I25.10 - ATHSCL HEART DISEASE OF [place] CORONARY ARTERY W/O ANG PCTRS Qualifiers: Coronary Disease-Associated Artery/Lesion type: [place] artery [place] vs. transplanted heart: [place] heart Associated angina: without angina Qualified Code(s): I25.10 - Atherosclerotic heart disease of [place] coronary artery without angina pectoris (8) Demand ischemia Code(s): I24.8 - OTHER FORMS OF ACUTE ISCHEMIC HEART DISEASE (9) Diabetes mellitus Code(s): E11.9 - TYPE 2 DIABETES MELLITUS WITHOUT COMPLICATIONS Qualifiers: Diabetes mellitus type: type 2 Diabetes mellitus complication status: without complication (10) HLD (hyperlipidemia) Code(s): E78.5 - HYPERLIPIDEMIA, UNSPECIFIED Qualifiers: Hyperlipidemia type: pure hypercholesterolemia Qualified Code(s): E78.00 - Pure hypercholesterolemia, unspecified (11) HTN (hypertension) Code(s): I10 - ESSENTIAL (PRIMARY) HYPERTENSION Qualifiers: Hypertension type: essential hypertension Qualified Code(s): I10 - Essential (primary) hypertension (12) History of coronary artery stent placement Code(s): Z95.5 - PRESENCE OF CORONARY ANGIOPLASTY IMPLANT AND GRAFT (13) Hx of CABG Code(s): Z95.1 - PRESENCE OF AORTOCORONARY BYPASS GRAFT (14) ICD (implantable cardioverter-defibrillator) in place Code(s): Z95.810 - PRESENCE OF AUTOMATIC (IMPLANTABLE) CARDIAC DEFIBRILLATOR (15) Sleep apnea Code(s): G47.30 - SLEEP APNEA, UNSPECIFIED Qualifiers: Sleep apnea type: obstructive Qualified Code(s): G47.33 - Obstructive sleep apnea (adult) (pediatric) (16) Systolic dysfunction without heart failure Code(s): I51.9 - HEART DISEASE, UNSPECIFIED Assessment/Plan 1. Acute on CKD, left obstruction from kidney stone post nephrostomy decompression 2. CKD stage 4 (baseline Cr 3.8) secondary to suspected diabetic nephropathy 3. Systolic LV systolic dysfunction, euvolemic 4. Aortic valve disease - aortic stenosis 5. CAD, history of SC, s/p CABG, PCI/stent - elevated troponin referable to demand ischemia 6. Hypertension 7. Hypercholesterolemia 8. Post ICD implant due to low LVEF and CHF 9. Anemia of CKD 10. Gout 11. OSAS on CPAP PLAN: 1. Judicious hydration and monitor renal recovery post nephrostomy 2. Currently on Carvedilol 25 bid, Ranexa 500 bid and Lipitor 80 qhs 3. Continue ASA 81 qd to decrease risk of very late stent thrombosis. Hold Plavix 75 qd for now pending procedures 4. Resume Entresto 49/51 bid and Demadex 20 qd once renal function and hyperkalemia stabilizes 5. Patient may proceed with cystoscopy, stone removal, ureteral stent and removal of nephrostomy tube placement from CV-standpoint 6. DVT prophylaxis, empiric antibiotic course Further plans are to follow Paras Jensen MD
[2018-06-05] MEDS ORDERED: INSULIN (LEVEMIR) 100 UNITS/ML UNITS SQ ONE ×2 (19:00→22:00)
[2018-06-05] MEDS: ATORVASTATIN CA 80 MG TABLET (FP) PO SCH (21:33)
[2018-06-05] MEDS ORDERED: guaiFENesin/D-M SUGAR-FREE/ACLHOL-FREE 118 ML BOTTLE PO PRN (22:25)
[2018-06-06] MEDS: ACETAMINOPHEN 325 MG TABLET (FP) PO PRN (01:13)
[2018-06-06] MEDS: INSULIN (LEVEMIR) 100 UNITS/ML UNITS SQ SCH ×2 (06:50→22:35)
[2018-06-06] MEDS: INSULIN SLIDING SCALE (NOVOLOG) 1 VIAL SQ SCH ×3 (06:51→17:35)
[2018-06-06 07:27] LABS: BASO % 0.7 % (0-2.0); EOS % 2.1 % (0-4.5); HEMATOCRIT 25.4 % (35.4-49); HEMOGLOBIN 8.4 GM/dL (11.7-16.9); LYMPH % 19.4 % (8-40); MCH 29.6 pg (25.7-33.7); MCHC 32.9 g/dl (32.0-35.9); MEAN PLT VOLUME 6.8 fl (7.5-11.1); MONO % 10.5 % (3.8-10.2); NEUT % 67.3 % (42.8-82.8); PLATELET COUNT 209 K/MM3 (134-434); RBC 2.82 M/mm3 (4.00-5.60); RDW 14.6 % (11.9-15.9); WHITE BLOOD COUNT 4.8 K/mm3 (4.0-10.0)
[2018-06-06 08:00] LABS: ANION GAP 9 MMOL/L (8-16); BLOOD UREA NITROGEN 70 mg/dL (7-18); CHLORIDE 109 mmol/L (98-107); CO2 21 mmol/L (21-32); GLUCOSE,RANDOM 222 mg/dL (74-106); MAGNESIUM 1.5 mg/dL (1.8-2.4); POTASSIUM 4.4 mmol/L (3.5-5.1); SODIUM 139 mmol/L (136-145)
[2018-06-06] MEDS ORDERED: PT OWN MED DRAWER 7, Y5N ONE (08:20)
[2018-06-06] MEDS: TAMSULOSIN HCL 0.4 MG CAP PO SCH (08:47)
[2018-06-06] MEDS: RANITIDINE HCL 150 MG TABLET (FP) PO SCH ×2 (09:13→22:36)
[2018-06-06] MEDS: ASPIRIN 81 MG CHEWABLE TABLETS PO SCH (09:13)
[2018-06-06] MEDS: RANOLAZINE E.R. 500 MG TABLET (FP) PO SCH ×2 (09:13→22:36)
[2018-06-06] MEDS: CARVEDILOL 25 MG TABLET (FP) PO SCH ×2 (09:14→22:36)
--- NOTE | 2018-06-06 09:29 | PN ---
Progress Note (short form) - Note Progress Note: Renal follow up for HECTOR on CKD Pt seen and examined at the bedside no complaints no sob, cp, abd pain, N/V/D Vital Signs Temperature 97.6 F 06/06/18 09:14 Pulse Rate 76 06/06/18 09:14 Respiratory Rate 19 06/06/18 09:14 Blood Pressure 159/83 06/06/18 09:14 O2 Sat by Pulse Oximetry (%) 98 06/05/18 21:00 Intake & Output 06/03/18 06/04/18 06/05/18 06/06/18 23:59 23:59 23:59 23:59 Intake Total 1800 2140 1040 350 Output Total 780 1650 2320 850 Balance 1020 490 -1280 -500 Weight 122.289 kg 122.016 kg 121.79 kg 121.166 kg NAD RRR CTA no LE edema nephrostomy in place CBC, BMP 06/06/18 06:00 06/06/18 06:00 Current Medications Acetaminophen (Tylenol -) 650 mg PO Q4H PRN PRN Reason: PAIN LEVEL 1-5 Last Admin: 06/06/18 01:13 Dose: 650 mg Aspirin (Asa -) 81 mg PO DAILY [facility] Last Admin: 06/06/18 09:13 Dose: 81 mg Atorvastatin Calcium (Lipitor -) 80 mg PO HS [facility] Last Admin: 06/05/18 21:33 Dose: 80 mg Carvedilol (Coreg -) 25 mg PO BID [facility] Last Admin: 06/06/18 09:14 Dose: 25 mg Guaifenesin (Diabetic Tussin Dm -) 10 ml PO Q4H PRN PRN Reason: COUGH Stop: 06/06/18 10:00 Last Admin: 06/05/18 23:00 Dose: 10 ml Insulin Aspart (Novolog Vial Sliding Scale -) 1 vial SQ TIDAC [facility]; Protocol Last Admin: 06/06/18 06:51 Dose: 6 units Insulin Detemir (Levemir Vial) 20 units SQ BID@0700,2200 [facility] Last Admin: 06/06/18 06:50 Dose: 20 units Levofloxacin (Levaquin -) 250 mg PO Q2D@0600 [facility] Last Admin: 06/05/18 11:45 Dose: 250 mg Ranitidine HCl (Zantac -) 150 mg PO BID [facility] Last Admin: 06/06/18 09:13 Dose: 150 mg Ranolazine (Ranexa -) 500 mg PO BID [facility] Last Admin: 06/06/18 09:13 Dose: 500 mg Tamsulosin HCl (Flomax -) 0.4 mg PO DAILY@0830 [facility] Last Admin: 06/06/18 08:47 Dose: 0.4 mg 57 year old gentleman with CKD stage 4, CAD, , Hyperlipidemia, DM, hx of non- obstructing nephrolithiasis who presented with flank and back pain and found to have left sided hydronephrosis with HECTOR. #HECTOR secondary to unilateral obstruction from kidney stone #CKD stage 4 (baseline Cr 3.8) secondary to suspected diabetic nephropathy #Constipation #Acute anemia #Mild Hyperkalemia #Metabolic acidosis Renal function improving, urine output improving off IVF, pt is not polyuric Hgb stable s/p IV iron x 1 and epogen x 1 (additional epogen to be given tomorrow) Continue flomax anticipate urologic intervention tomorrow Jose Manuel Pendleton DO
--- NOTE | 2018-06-06 11:59 | PN ---
Progress Note, Physician Chief Complaint: Events noted Hematuria noted slightly better History of Present Illness: Patient was seen and examined. Awake and alert. Chart was reviewed Denies chest pain, SOB or palpitations - Current Medication List Current Medications: Active Medications Acetaminophen (Tylenol -) 650 mg PO Q4H PRN PRN Reason: PAIN LEVEL 1-5 Last Admin: 06/06/18 01:13 Dose: 650 mg Aspirin (Asa -) 81 mg PO DAILY [facility] Last Admin: 06/06/18 09:13 Dose: 81 mg Atorvastatin Calcium (Lipitor -) 80 mg PO HS [facility] Last Admin: 06/05/18 21:33 Dose: 80 mg Carvedilol (Coreg -) 25 mg PO BID [facility] Last Admin: 06/06/18 09:14 Dose: 25 mg Insulin Aspart (Novolog Vial Sliding Scale -) 1 vial SQ TIDAC [facility]; Protocol Last Admin: 06/06/18 06:51 Dose: 6 units Insulin Detemir (Levemir Vial) 20 units SQ BID@0700,2200 [facility] Last Admin: 06/06/18 06:50 Dose: 20 units Levofloxacin (Levaquin -) 250 mg PO Q2D@0600 [facility] Last Admin: 06/05/18 11:45 Dose: 250 mg Ranitidine HCl (Zantac -) 150 mg PO BID [facility] Last Admin: 06/06/18 09:13 Dose: 150 mg Ranolazine (Ranexa -) 500 mg PO BID [facility] Last Admin: 06/06/18 09:13 Dose: 500 mg Tamsulosin HCl (Flomax -) 0.4 mg PO DAILY@0830 [facility] Last Admin: 06/06/18 08:47 Dose: 0.4 mg - Objective Vital Signs: Vital Signs Temperature 97.6 F 06/06/18 09:14 Pulse Rate 76 06/06/18 09:14 Respiratory Rate 19 06/06/18 09:14 Blood Pressure 159/83 06/06/18 09:14 O2 Sat by Pulse Oximetry (%) 98 06/05/18 21:00 Neck: Yes: Supple Cardiovascular: Yes: Regular Rate and Rhythm, S1, S2 Respiratory: Yes: CTA Bilaterally Gastrointestinal: Yes: Normal Bowel Sounds, Soft. No: Tenderness Edema: No Labs: CBC, BMP 06/06/18 06:00 06/06/18 06:00 Problem List - Problems (1) Acute on chronic kidney failure Code(s): N17.9 - ACUTE KIDNEY FAILURE, UNSPECIFIED; N18.9 - CHRONIC KIDNEY DISEASE, UNSPECIFIED (2) Nephrolithiasis Code(s): N20.0 - CALCULUS OF KIDNEY (3) Obstructive uropathy Code(s): N13.9 - OBSTRUCTIVE AND REFLUX UROPATHY, UNSPECIFIED (4) Acute on chronic systolic (congestive) heart failure Code(s): I50.23 - ACUTE ON CHRONIC SYSTOLIC (CONGESTIVE) HEART FAILURE (5) Anemia Code(s): D64.9 - ANEMIA, UNSPECIFIED Qualifiers: Anemia type: unspecified type Qualified Code(s): D64.9 - Anemia, unspecified (6) Aortic valve stenosis Code(s): I35.0 - NONRHEUMATIC AORTIC (VALVE) STENOSIS Qualifiers: Cardiac valve disease etiology: nonrheumatic Qualified Code(s): I35.0 - Nonrheumatic aortic (valve) stenosis (7) CAD (coronary artery disease) Code(s): I25.10 - ATHSCL HEART DISEASE OF [place] CORONARY ARTERY W/O ANG PCTRS Qualifiers: Coronary Disease-Associated Artery/Lesion type: [place] artery [place] vs. transplanted heart: [place] heart Associated angina: without angina Qualified Code(s): I25.10 - Atherosclerotic heart disease of [place] coronary artery without angina pectoris (8) Demand ischemia Code(s): I24.8 - OTHER FORMS OF ACUTE ISCHEMIC HEART DISEASE (9) Diabetes mellitus Code(s): E11.9 - TYPE 2 DIABETES MELLITUS WITHOUT COMPLICATIONS Qualifiers: Diabetes mellitus type: type 2 Diabetes mellitus complication status: without complication (10) HLD (hyperlipidemia) Code(s): E78.5 - HYPERLIPIDEMIA, UNSPECIFIED Qualifiers: Hyperlipidemia type: pure hypercholesterolemia Qualified Code(s): E78.00 - Pure hypercholesterolemia, unspecified (11) HTN (hypertension) Code(s): I10 - ESSENTIAL (PRIMARY) HYPERTENSION Qualifiers: Hypertension type: essential hypertension Qualified Code(s): I10 - Essential (primary) hypertension (12) History of coronary artery stent placement Code(s): Z95.5 - PRESENCE OF CORONARY ANGIOPLASTY IMPLANT AND GRAFT (13) Hx of CABG Code(s): Z95.1 - PRESENCE OF AORTOCORONARY BYPASS GRAFT (14) ICD (implantable cardioverter-defibrillator) in place Code(s): Z95.810 - PRESENCE OF AUTOMATIC (IMPLANTABLE) CARDIAC DEFIBRILLATOR (15) Sleep apnea Code(s): G47.30 - SLEEP APNEA, UNSPECIFIED Qualifiers: Sleep apnea type: obstructive Qualified Code(s): G47.33 - Obstructive sleep apnea (adult) (pediatric) (16) Systolic dysfunction without heart failure Code(s): I51.9 - HEART DISEASE, UNSPECIFIED Assessment/Plan 1. Acute on CKD, left obstruction from kidney stone post nephrostomy decompression 2. CKD stage 4 (baseline Cr 3.8) secondary to suspected diabetic nephropathy 3. Systolic LV systolic dysfunction, euvolemic 4. Aortic valve disease - aortic stenosis 5. CAD, history of [place], s/p CABG, PCI/stent - elevated troponin referable to demand ischemia 6. Hypertension 7. Hypercholesterolemia 8. Post ICD implant due to low LVEF and CHF 9. Anemia of CKD 10. Gout 11. OSAS on CPAP PLAN: 1. Present management and continue hydration as needed 2. Currently on Carvedilol 25 bid, Ranexa 500 bid and Lipitor 80 qhs 3. Continue ASA 81 qd to decrease risk of very late stent thrombosis. Hold Plavix 75 qd for now pending procedures 4. Resume Entresto 49/51 bid and Demadex 20 qd once renal function and hyperkalemia stabilizes 5. Patient may proceed with cystoscopy, stone removal, ureteral stent and removal of nephrostomy tube placement from CV-standpoint 6. DVT prophylaxis, empiric antibiotic course Further plans are to follow Paras Jensen MD
--- NOTE | 2018-06-06 16:18 | PN ---
Physical Exam: SUBJECTIVE: Patient seen and examined, no complaints. OBJECTIVE: Vital Signs Period Temp Pulse Resp BP Sys/Gallo Pulse Ox Last 24 Hr 97.6 F-98.1 F 69-81 19-20 137-159/77-83 98-98 GENERAL: The patient is awake, alert, and fully oriented, in no acute distress. Neck: soft, supple, no JVD CVS:S1S2 regular Chest; CTAB, no rales or wheezing Abdomen:soft, obese, NT, no CVA tenderness, sanguinous nephrostomy drainage, clearing Extremities: no edema Laboratory Results - last 24 hr 06/05/18 06/05/18 06/05/18 17:06 18:29 21:32 WBC RBC Hgb Hct MCV MCH MCHC RDW Plt Count MPV Absolute Neuts (auto) Neutrophils % Lymphocytes % Monocytes % Eosinophils % Basophils % Nucleated RBC % Sodium Potassium Chloride Carbon Dioxide Anion Gap BUN Creatinine Creat Clearance w eGFR POC Glucometer 135 202 237 Random Glucose Calcium Magnesium 06/06/18 06/06/18 06/06/18 06:00 06:00 06:48 WBC 4.8 RBC 2.82 L Hgb 8.4 L Hct 25.4 L MCV 90.0 MCH 29.6 MCHC 32.9 RDW 14.6 Plt Count 209 MPV 6.8 L Absolute Neuts (auto) 3.2 Neutrophils % 67.3 Lymphocytes % 19.4 D Monocytes % 10.5 H Eosinophils % 2.1 D Basophils % 0.7 Nucleated RBC % 0 Sodium 139 Potassium 4.4 Chloride 109 H Carbon Dioxide 21 Anion Gap 9 BUN 70 H Creatinine 4.0 H Creat Clearance w eGFR 15.61 POC Glucometer 283 Random Glucose 222 H Calcium 8.0 L Magnesium 1.5 L 06/06/18 12:06 WBC RBC Hgb Hct MCV MCH MCHC RDW Plt Count MPV Absolute Neuts (auto) Neutrophils % Lymphocytes % Monocytes % Eosinophils % Basophils % Nucleated RBC % Sodium Potassium Chloride Carbon Dioxide Anion Gap BUN Creatinine Creat Clearance w eGFR POC Glucometer 305 Random Glucose Calcium Magnesium Active Medications Generic Name Dose Route Start Last Admin Trade Name Freq PRN Reason Stop Dose Admin Acetaminophen 650 mg 06/03/18 06:27 06/06/18 01:13 Tylenol - PO 650 mg Q4H PRN Administration PAIN LEVEL 1-5 Aspirin 81 mg 06/03/18 12:00 06/06/18 09:13 Asa - PO 81 mg DAILY [facility] Administration Atorvastatin Calcium 80 mg 06/01/18 22:00 06/05/18 21:33 Lipitor - PO 80 mg HS [facility] Administration Carvedilol 25 mg 06/01/18 22:00 06/06/18 09:14 Coreg - PO 25 mg BID [facility] Administration Insulin Aspart 1 vial 06/02/18 17:17 06/06/18 12:08 Novolog Vial Sliding Scale - SQ 8 units TIDAC [facility] Administration Protocol Insulin Detemir 20 units 06/06/18 07:00 06/06/18 06:50 Levemir Vial SQ 20 units BID@0700,2200 [facility] Administration Levofloxacin 250 mg 06/05/18 10:45 06/05/18 11:45 Levaquin - PO 250 mg Q2D@0600 [facility] Administration Ranitidine HCl 150 mg 06/01/18 22:00 06/06/18 09:13 Zantac - PO 150 mg BID [facility] Administration Ranolazine 500 mg 06/01/18 22:00 06/06/18 09:13 Ranexa - PO 500 mg BID [facility] Administration Tamsulosin HCl 0.4 mg 06/01/18 18:59 06/06/18 08:47 Flomax - PO 0.4 mg DAILY@0830 [facility] Administration Microbiology 06/02/18 14:12 Urine - Urine Nephrostomy Tube Left Urine Culture - Final NO GROWTH OBTAINED ASSESSMENT/PLAN: 57 yom with PMHx of ASHD, [place], S/P CABG, PCI/stent, ICD implant(2007), HTN, hypercholesterolemia, IDDM on insulin pump, CKD stage III -IV (baseline cr around 3) gout and 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 -Left ureteral stone with left mild to moderate hydronephrosis s/p Left PCN -HECTOR on CKD stage IV -Hyperkalemia, resolved -Acute on chronic anemia, suspect from bloody drainage/HECTOR, with component of hemodilution -Elevated troponin likely demand induced from above vs severe HECTOR rather than ACS -Ischemic cardiomyopathy -CAD s/p CABG/MD/PCI, abnormal stress test in 06/2017 -IDDM on insulin pump -HTN -s/p AICD -Gout Plan: Cr improving. Renal/urology/cardiology input noted. Bloody drainage from Left PCN improving,. Plan for procedure on Thursday if cr continues to improve. NPO after midnight. Levaquin renal dosing. Nephrostomy tube drainage cultures neg so far. Discussed with Dr. Bertrand, strongly recommend continuation of ASA 81 mg to avoid risk of left instent thrombosis. Risks of holding outweigh benefits as discussed with . S/p Erythropeotin and IV iron, x2, monitor h/h Off IVF. Monitor lytes closely. Strict I/Os,daily weights. Hold entresto/plavix. Continue statin/coreg/ranexa/ASA GIPPX with ranitidine DVTPPX, on hold pending surgical plans and clinical improvement. SCDs in bed Plan discussed with patient in detail, all questions answered. Visit type - Emergency Visit Emergency Visit: Yes ED Registration Date: 06/01/18 Care time: The patient presented to the Emergency Department on the above date and was hospitalized for further evaluation of their emergent condition. - New Patient This patient is new to me today: No - Critical Care Critical Care patient: No - Discharge Referral Referred to [facility] No
[2018-06-06] MEDS ORDERED: cloNIDine-TTS 0.3 MG /24 HRS PATCH.TDWK TD SCH (17:00)
[2018-06-06] MEDS: ATORVASTATIN CA 80 MG TABLET (FP) PO SCH (22:36)
[2018-06-06] MEDS ORDERED: guaiFENesin/D-METHORPHAN HB 10 ML UNIT-DOSE CUPS PO ONE (22:43)
[2018-06-07 07:28] LABS: BASO % 0.7 % (0-2.0); EOS % 2.2 % (0-4.5); HEMATOCRIT 26.5 % (35.4-49); HEMOGLOBIN 8.9 GM/dL (11.7-16.9); LYMPH % 17.4 % (8-40); MCH 29.8 pg (25.7-33.7); MCHC 33.5 g/dl (32.0-35.9); MEAN PLT VOLUME 6.7 fl (7.5-11.1); MONO % 8.7 % (3.8-10.2); PLATELET COUNT 227 K/MM3 (134-434); RBC 2.98 M/mm3 (4.00-5.60); RDW 14.8 % (11.9-15.9); WHITE BLOOD COUNT 5.2 K/mm3 (4.0-10.0)
[2018-06-07 07:47] LABS: ANION GAP 11 MMOL/L (8-16); BLOOD UREA NITROGEN 69 mg/dL (7-18); CALCIUM 8.1 mg/dL (8.5-10.1); CHLORIDE 108 mmol/L (98-107); CO2 20 mmol/L (21-32); CREATININE 3.9 mg/dL (0.55-1.3); GLUCOSE,RANDOM 242 mg/dL (74-106); MAGNESIUM 1.5 mg/dL (1.8-2.4); POTASSIUM 4.2 mmol/L (3.5-5.1); SODIUM 139 mmol/L (136-145)
[2018-06-07] MEDS ORDERED: MAGNESIUM SULF 50% (8.12 MEQ/2 ML-1 GM VIAL) IVPB ONE (08:03)
--- NOTE | 2018-06-07 08:06 | PN ---
Teaching Attending Note Name of Resident: Marco Dunn ATTENDING PHYSICIAN STATEMENT I saw and evaluated the patient. I reviewed the resident's note and discussed the case with the resident. I agree with the resident's findings and plan as documented with exceptions below. SUBJECTIVE: Patient seen and examined.had some pain with hematuria yesterday, feels has passed stone yesterday, no complaints otherwise. OBJECTIVE: Vital Signs Period Temp Pulse Resp BP Sys/Gallo Pulse Ox Last 24 Hr 97.5 F-98.1 F 69-76 19-20 128-163/67-83 98-98 Intake & Output 06/04/18 06/05/18 06/06/18 06/07/18 23:59 23:59 23:59 23:59 Intake Total 2140 1040 1350 Output Total 1650 2320 1700 1275 Balance 490 -1280 -350 -1275 Weight 269 lb 268 lb 8 oz 267 lb 2 oz 267 lb General: lying in bed in no acute distress chest: CTAB, no rales or wheezing Abdomen: soft, obese, NT, no CVA tenderness, PCN draining sanguinous drainage Extremities: no edema Active Medications Acetaminophen (Tylenol -) 650 mg PO Q4H PRN PRN Reason: PAIN LEVEL 1-5 Last Admin: 06/06/18 01:13 Dose: 650 mg Aspirin (Asa -) 81 mg PO DAILY [facility] Last Admin: 06/06/18 09:13 Dose: 81 mg Atorvastatin Calcium (Lipitor -) 80 mg PO HS [facility] Last Admin: 06/06/18 22:36 Dose: 80 mg Carvedilol (Coreg -) 25 mg PO BID [facility] Last Admin: 06/06/18 22:36 Dose: 25 mg Clonidine HCl (Catapres Tts Patch -) 0.3 mg TD Q7D@1000 [facility] Last Admin: 06/06/18 18:40 Dose: 0.3 mg Insulin Aspart (Novolog Vial Sliding Scale -) 1 vial SQ TIDAC [facility]; Protocol Last Admin: 06/06/18 17:35 Dose: 8 units Insulin Detemir (Levemir Vial) 20 units SQ BID@0700,2200 [facility] Last Admin: 06/06/18 22:35 Dose: 20 units Levofloxacin (Levaquin -) 250 mg PO Q2D@0600 [facility] Last Admin: 06/07/18 06:51 Dose: 250 mg Ranitidine HCl (Zantac -) 150 mg PO BID [facility] Last Admin: 06/06/18 22:36 Dose: 150 mg Ranolazine (Ranexa -) 500 mg PO BID [facility] Last Admin: 06/06/18 22:36 Dose: 500 mg Tamsulosin HCl (Flomax -) 0.4 mg PO DAILY@0830 [facility] Last Admin: 06/06/18 08:47 Dose: 0.4 mg Laboratory Results - last 24 hr 06/06/18 06/06/18 06/06/18 12:06 17:32 22:33 Sodium Potassium Chloride Carbon Dioxide Anion Gap BUN Creatinine Creat Clearance w eGFR POC Glucometer 305 339 287 Random Glucose Calcium Magnesium 06/07/18 06/07/18 06:00 06:50 Sodium 139 Potassium 4.2 Chloride 108 H Carbon Dioxide 20 L Anion Gap 11 BUN 69 H Creatinine 3.9 H Creat Clearance w eGFR 16.07 POC Glucometer 285 Random Glucose 242 H Calcium 8.1 L Magnesium 1.5 L ASSESSMENT AND PLAN: 57 yom with PMHx of ASHD, [place], S/P CABG, PCI/stent, ICD implant(2007), HTN, hypercholesterolemia, IDDM on insulin pump, CKD stage III -IV (baseline cr around 3) gout and 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 -Left ureteral stone with left mild to moderate hydronephrosis s/p Left PCN , s/p left cystoscopy/ureteroscopy/Left Ureteral stent placement and removal of PCN tube 06/07 -HECTOR on CKD stage IV -Hyperkalemia, resolved -Acute on chronic anemia, suspect from bloody drainage/HECTOR, with component of hemodilution -Elevated troponin likely demand induced from above vs severe HECTOR rather than ACS -Ischemic cardiomyopathy -CAD s/p CABG/RI/PCI, abnormal stress test in 06/2017 -IDDM on insulin pump -HTN -s/p AICD -Gout Plan: Urology input noted, s/p intervention, NO stone visualized, ?passed stone. Renal/cardiology input noted. Levaquin renal dosing. Nephrostomy tube drainage cultures neg so far. d/c in 24- 48 hours per urology. Discussed with Dr. Bertrand, strongly recommend continuation of ASA 81 mg to avoid risk of left instent thrombosis. Risks of holding outweigh benefits as discussed with high. S/p Erythropeotin and IV iron, x2, monitor h/h Off IVF. Monitor lytes closely. Strict I/Os,daily weights. Hold entresto/plavix. Resume based per urology/nephrology. Continue statin/coreg/ranexa/ASA GIPPX with ranitidine DVTPPX, on hold pending surgical plans and clinical improvement. SCDs in bed Plan discussed with patient in detail, all questions answered.
[2018-06-07] MEDS: RANOLAZINE E.R. 500 MG TABLET (FP) PO SCH ×2 (09:03→22:57)
[2018-06-07] MEDS: RANITIDINE HCL 150 MG TABLET (FP) PO SCH ×2 (09:03→22:57)
[2018-06-07] MEDS: CARVEDILOL 25 MG TABLET (FP) PO SCH ×2 (09:03→22:54)
[2018-06-07] MEDS: INSULIN (LEVEMIR) 100 UNITS/ML UNITS SQ SCH ×2 (09:04→22:56)
[2018-06-07] MEDS: ASPIRIN 81 MG CHEWABLE TABLETS PO SCH (09:04)
[2018-06-07] MEDS: TAMSULOSIN HCL 0.4 MG CAP PO SCH (09:04)
[2018-06-07] MEDS: INSULIN SLIDING SCALE (NOVOLOG) 1 VIAL SQ SCH ×3 (09:05→17:49)
[2018-06-07] MEDS ORDERED: INSULIN (NOVOLOG) ASPART 100 UNITS/ML 10ML VIAL ONE (10:58)
[2018-06-07] MEDS ORDERED: MIDAZOLAM HCL 2 MG/2 ML SINGLE DOSE VIAL ONE (13:05)
[2018-06-07] MEDS ORDERED: ROCURONIUM BROMIDE 50 MG/5 ML VIAL ONE (13:17)
--- NOTE | 2018-06-07 13:26 | PN ---
Physical Exam: SUBJECTIVE: Patient seen and examined. Pt. endorses increased redness in urine and burning with urination. Pt. states that. he thinks he may have passed a stone on Thursday. He states that he had a particularly difficult time passing urine and the pain resolved as soon as the stone passed. He states that the nurse did not sift the urine at that time and that he forgot to mention it Dr. Blackburn or Dr. Pendleton. Pt. denies any other complaints at this time including SOB , chest pain, abdominal pain or flank pain. OBJECTIVE: Vital Signs Period Temp Pulse Resp BP Sys/Gallo Pulse Ox Last 24 Hr 97.5 F-99.0 F 69-76 18-20 128-178/67-88 98-99 GENERAL: The patient is awake, alert, and fully oriented, in no acute distress. HEAD: Normal with no signs of trauma. EYES: PERRL, extraocular movements intact, sclera anicteric, conjunctiva clear. No ptosis. ENT: Ears normal, nares patent, oropharynx clear without exudates, moist mucous membranes. NECK: Trachea midline, full range of motion, supple. LUNGS: Breath sounds equal, clear to auscultation bilaterally, no wheezes, no crackles, no CVA tenderness, no accessory muscle use. HEART: Regular rate and rhythm, S1, S2 without murmur, rub or gallop. ABDOMEN: Soft, obese, nontender, nondistended, normoactive bowel sounds, no guarding, no rebound, nephrostomy tube draining red urine EXTREMITIES: 2+ dorsal pedal pulses, warm, well-perfused, no calf-tenderness, no edema. NEUROLOGICAL: Normal speech, gait not observed. PSYCH: Normal mood, normal affect. SKIN: Warm, dry, normal turgor Laboratory Results - last 24 hr 06/06/18 06/06/18 06/07/18 17:32 22:33 06:00 WBC 5.2 RBC 2.98 L Hgb 8.9 L Hct 26.5 L MCV 89.0 MCH 29.8 MCHC 33.5 RDW 14.8 Plt Count 227 MPV 6.7 L Absolute Neuts (auto) 3.7 Neutrophils % 71.0 Lymphocytes % 17.4 Monocytes % 8.7 Eosinophils % 2.2 Basophils % 0.7 Nucleated RBC % 0 Sodium Potassium Chloride Carbon Dioxide Anion Gap BUN Creatinine Creat Clearance w eGFR POC Glucometer 339 287 Random Glucose Calcium Magnesium 06/07/18 06/07/18 06/07/18 06:00 06:50 10:56 WBC RBC Hgb Hct MCV MCH MCHC RDW Plt Count MPV Absolute Neuts (auto) Neutrophils % Lymphocytes % Monocytes % Eosinophils % Basophils % Nucleated RBC % Sodium 139 Potassium 4.2 Chloride 108 H Carbon Dioxide 20 L Anion Gap 11 BUN 69 H Creatinine 3.9 H Creat Clearance w eGFR 16.07 POC Glucometer 285 272 Random Glucose 242 H Calcium 8.1 L Magnesium 1.5 L Active Medications Current Medications Acetaminophen (Tylenol -) 650 mg PO Q4H PRN PRN Reason: PAIN LEVEL 1-5 Aspirin (Asa -) 81 mg PO DAILY [facility] Atorvastatin Calcium (Lipitor -) 80 mg PO HS [facility] Carvedilol (Coreg -) 25 mg PO BID [facility] Clonidine HCl (Catapres Tts Patch -) 0.3 mg TD Q7D@1700 [facility] Insulin Aspart (Novolog Vial Sliding Scale -) 1 vial SQ TIDAC [facility]; Protocol Insulin Detemir (Levemir Vial) 20 units SQ BID@0700,2200 [facility] Levofloxacin (Levaquin -) 250 mg PO Q2D@0600 [facility] Ondansetron HCl (Zofran Injection) 4 mg IVPUSH Q6H PRN PRN Reason: NAUSEA AND/OR VOMITING Ranitidine HCl (Zantac -) 150 mg PO BID [facility] Ranolazine (Ranexa -) 500 mg PO BID [facility] Tamsulosin HCl (Flomax -) 0.4 mg PO DAILY@0830 [facility] ASSESSMENT/PLAN: A 57 y.o. M with PMHx. of CAD (S/P [place], CABG, PCI/stent, ICD implant(2007), HTN, hypercholesterolemia, IDDM on insulin pump, CKD IV (baseline Cr. 3.0), Gout, L. eye blindness 2/2 retinal detachment, abnormal stress test in 06/2017, presents with left ureteral stone with hydronenphrosis and HECTOR on CKD stage IV. #Urology -S/p Cystoscopy/L. ureteroscopy/Left retrograde pyelogram/ L. ureteral stent placement/ Removal of left percutaneous stent placement monitor UOP f/u nephrostomy drainage cultures f/u for timing of stent removal c/w Levaquin 250mg Q2D consult with Dr. Sales appreciated #Nephrology -HECTOR on CKD 2/2 post-renal obstruction -BPH c/w Tamsulosin #Cardiology -Anemia 2/2 acute blood loss Given EPO and IV iron x 2 Monitor CBC Transfuse if Hgb. less than 8 -CAD-stable c/w ASA 81mg as risk outweigh benefits to abruptly stop anti-plateet agent in a pt. with known cardiac stents c/w Ranolazine 500mg BID Hold Plavix- b/c of increased bleeding risk avani-operatively and ongoing bleed. -HTN c/w Coreg 25mg BID c/w Clonidine 0.3mg TP Hold Entresto- b/c of HECTOR? -HLD c/w Lipitor #Endocrine -DM1 c/w Levemir 20 units SQ c/w ISS BGM TDAC Hold Insulin pump #Gastroenterology -Nausea c/w Zofran 4mg IVP PRN #F/E/N -IVF -monitor electrolytes and replete as needed -Diabetic diet #Ppx. -DVT ASA 81mg SCDs -GI Ranitidine 150mg BID -Pulmonary Incentive Spirometry Visit type - Emergency Visit Emergency Visit: Yes ED Registration Date: 06/01/18 Care time: The patient presented to the Emergency Department on the above date and was hospitalized for further evaluation of their emergent condition. - New Patient This patient is new to me today: Yes Date on this admission: 06/07/18 - Critical Care Critical Care patient: No - Discharge Referral Referred to [facility] No
[2018-06-07] MEDS ORDERED: ONDANSETRON 4 MG/2 ML VIAL IVPUSH PRN ×2 (13:56→14:59)
[2018-06-07] MEDS ORDERED: LACTATED RINGERS SOLUTION 1,000 ML IV SCH ×2 (14:00→14:59)
[2018-06-07] MEDS ORDERED: GLYCOPYRROLATE 0.2 MG/1 ML VIAL ONE (14:02)
[2018-06-07] MEDS ORDERED: NEOSTIGMINE METHYLSULFATE 0.5 MG/1 ML - 10 ML MDV ONE ×2 (14:02→14:06)
--- NOTE | 2018-06-07 14:49 | OP ---
Operative Note - Note: Operative Date: 06/07/18 Pre-Operative Diagnosis: left ureteral stone with hydronephrosis and ARF Operation: cystoscopy/left ureteroscopy/left retrograde pyelogram/left ureteral stent placement/removal of left percutaneous nephrostomy tube Findings: no stone found in distal ureter Post-Operative Diagnosis: Same as Pre-op Surgeon: Jm Sales Anesthesia: General Specimens Removed: left nephrostomy tube Drains & Tubes with Location: 02/07 left ureteral stent
[2018-06-07] MEDS ORDERED: ACETAMINOPHEN 325 MG TABLET (FP) PO PRN (14:59)
[2018-06-07] MEDS ORDERED: ONDANSETRON 4 MG/2 ML VIAL ONE (15:25)
--- NOTE | 2018-06-07 20:00 | OP ---
DATE OF OPERATION: 06/07/2018 PREOPERATIVE DIAGNOSIS: Left ureteral stone with hydronephrosis status post left percutaneous nephrostomy tube. POSTOPERATIVE DIAGNOSIS: Left ureteral stone with hydronephrosis status post left percutaneous nephrostomy tube. PROCEDURE: Cystoscopy, left retrograde pyelogram, left ureteroscopy, left ureteral stent placement, removal of left percutaneous nephrostomy tube. ATTENDING: Glenroy Navarro MD ANESTHESIA: General. DESCRIPTION OF OPERATION: Patient was brought in the operating room, placed in supine position on the operating room table. General anesthesia was administered to the patient. At this point, the patient was placed in the dorsal lithotomy position and prepped and draped in the usual sterile manner. Cystoscopy was performed. The bladder is inspected, and no evidence of stones or neoplasm is noted. A retrograde pyelogram is performed which showed a filling defect in the distal ureter with poor drainage past the point of the filling defect. A wire was passed proximally. At this point, ureteroscopy was performed. However, no stone is noted. The likely possibility is that the stone migrated proximally into the kidney with the wire placement. Because of the significant risk of bleeding, it was decided not to pursue the stone into the kidney. The patient had a stent placed over the wire utilizing Seldinger technique. The left percutaneous nephrostomy was then removed at the end of the procedure and sent for analysis to pathology. Patient tolerated the procedure very well. The disposition of the patient was to the recovery room. GLENROY NAVARRO M.D. [id number]
[2018-06-07] MEDS ORDERED: INSULIN (LEVEMIR) 100 UNITS/ML UNITS SQ SCH (22:00)
[2018-06-07] MEDS ORDERED: ATORVASTATIN CA 80 MG TABLET (FP) PO SCH (22:00)
[2018-06-08] MEDS: INSULIN SLIDING SCALE (NOVOLOG) 1 VIAL SQ SCH ×3 (06:51→16:40)
[2018-06-08] MEDS: INSULIN (LEVEMIR) 100 UNITS/ML UNITS SQ SCH (06:51)
[2018-06-08 08:13] LABS: HEMATOCRIT 25.1 % (35.4-49); HEMOGLOBIN 8.3 GM/dL (11.7-16.9); MCH 29.8 pg (25.7-33.7); MEAN CELL VOLUME 90.4 fl (80-96); MEAN PLT VOLUME 6.5 fl (7.5-11.1); PLATELET COUNT 208 K/MM3 (134-434); RBC 2.77 M/mm3 (4.00-5.60); RDW 15.2 % (11.9-15.9); WHITE BLOOD COUNT 6.5 K/mm3 (4.0-10.0)
[2018-06-08] MEDS ORDERED: TAMSULOSIN HCL 0.4 MG CAP PO SCH (08:30)
[2018-06-08 08:40] LABS: ANION GAP 7 MMOL/L (8-16); BLOOD UREA NITROGEN 69 mg/dL (7-18); CALCIUM 8.4 mg/dL (8.5-10.1); CHLORIDE 110 mmol/L (98-107); CO2 21 mmol/L (21-32); CREATININE 3.8 mg/dL (0.55-1.3); GLUCOSE,RANDOM 294 mg/dL (74-106); MAGNESIUM 1.8 mg/dL (1.8-2.4); PHOSPHOROUS 3.7 mg/dL (2.5-4.9); POTASSIUM 4.7 mmol/L (3.5-5.1); SODIUM 139 mmol/L (136-145)
[2018-06-08] MEDS ORDERED: NITROGLYCERIN SUBLINGUAL 1/150 0.4 MG TAB SL PRN (09:09)
--- NOTE | 2018-06-08 09:13 | PN ---
Teaching Attending Note Name of Resident: Marco Dunn ATTENDING PHYSICIAN STATEMENT I saw and evaluated the patient. I reviewed the resident's note and discussed the case with the resident. I agree with the resident's findings and plan as documented with exceptions below. SUBJECTIVE: Patient seen and examined. Episode of chest pain earlier, resolved now. No new complaints. OBJECTIVE: Vital Signs Period Temp Pulse Resp BP Sys/Gallo Pulse Ox Last 24 Hr 97.6 F-98.5 F 72-88 16-18 123-170/58-88 95-100 Intake & Output 06/05/18 06/06/18 06/07/18 06/08/18 23:59 23:59 23:59 23:59 Intake Total 1040 1350 200 Output Total 2320 1700 2625 700 Balance -1280 -350 -6115 -700 Weight 268 lb 8 oz 267 lb 2 oz 267 lb 266 lb 3.2 oz General: lying in bed in no acute distress Chest: CTAB, no rales or wheezing Abdomen: soft, obese, NT, no CVA tenderness noted Extremities: no edema Home Medications Medication Instructions Recorded Clopidogrel Bisulfate [Plavix -] 75 mg PO DAILY 07/13/13 Ranolazine [Ranexa] 500 mg PO BID 07/13/13 Ranitidine [Zantac -] 150 mg PO BID 06/19/17 Clonidine Patch [Catapres Tts 0.3 mg TD WEEKLY 06/21/17 Patch -] Aspirin [ASA -] 81 mg PO DAILY 09/28/17 Nitroglycerin [Nitrostat] 0.4 mg SL PRN PRN 09/28/17 Torsemide 1 tab PO DAILY 09/29/17 Carvedilol [Coreg -] 25 mg PO BID #60 tablet 09/30/17 Atorvastatin Ca [Lipitor] 80 mg PO HS 06/01/18 Ergocalciferol (Vitamin D2) 50,000 unit PO WEEKLY 06/01/18 [Vitamin D2] Insulin Lispro [Humalog] 0 unit SQ ASDIR PRN 06/01/18 [place]-3 Fatty Acids [[place]-3] 1,000 mg PO BID 06/01/18 Sacubitril/Valsartan [Entresto 49 1 each PO BID 06/01/18 mg-51 mg Tablet] Active Medications Acetaminophen (Tylenol -) 650 mg PO Q4H PRN PRN Reason: PAIN LEVEL 1-5 Aspirin (Asa -) 81 mg PO DAILY [facility] Atorvastatin Calcium (Lipitor -) 80 mg PO HS [facility] Last Admin: 06/07/18 22:53 Dose: 80 mg Carvedilol (Coreg -) 25 mg PO BID [facility] Last Admin: 06/07/18 22:54 Dose: 25 mg Clonidine HCl (Catapres Tts Patch -) 0.3 mg TD Q7D@1700 [facility] Insulin Aspart (Novolog Vial Sliding Scale -) 1 vial SQ TIDAC [facility]; Protocol Last Admin: 06/08/18 06:51 Dose: 8 units Insulin Detemir (Levemir Vial) 20 units SQ BID@0700,2200 [facility] Last Admin: 06/08/18 06:51 Dose: 20 units Levofloxacin (Levaquin -) 250 mg PO Q2D@0600 [facility] Nitroglycerin (Nitrostat -) 0.4 mg SL Q5M PRN PRN Reason: FOR CHEST PAIN Ondansetron HCl (Zofran Injection) 4 mg IVPUSH Q6H PRN PRN Reason: NAUSEA AND/OR VOMITING Last Admin: 06/07/18 15:30 Dose: 4 mg Ranitidine HCl (Zantac -) 150 mg PO BID [facility] Last Admin: 06/07/18 22:57 Dose: 150 mg Ranolazine (Ranexa -) 500 mg PO BID [facility] Last Admin: 06/07/18 22:57 Dose: 500 mg Tamsulosin HCl (Flomax -) 0.4 mg PO DAILY@0830 [facility] Laboratory Results - last 24 hr 06/04/18 06/07/18 06/07/18 09:35 10:56 17:35 WBC RBC Hgb Hct MCV MCH MCHC RDW Plt Count MPV Sodium Potassium Chloride Carbon Dioxide Anion Gap BUN Creatinine Creat Clearance w eGFR POC Glucometer 272 239 Random Glucose Calcium Phosphorus Magnesium Crossmatch See Detail 06/07/18 06/08/18 06/08/18 22:46 06:31 07:00 WBC 6.5 RBC 2.77 L Hgb 8.3 L Hct 25.1 L MCV 90.4 MCH 29.8 MCHC 33.0 RDW 15.2 Plt Count 208 MPV 6.5 L Sodium Potassium Chloride Carbon Dioxide Anion Gap BUN Creatinine Creat Clearance w eGFR POC Glucometer 266 327 Random Glucose Calcium Phosphorus Magnesium Crossmatch 06/08/18 07:15 WBC RBC Hgb Hct MCV MCH MCHC RDW Plt Count MPV Sodium 139 Potassium 4.7 Chloride 110 H Carbon Dioxide 21 Anion Gap 7 L BUN 69 H Creatinine 3.8 H Creat Clearance w eGFR 16.56 POC Glucometer Random Glucose 294 H Calcium 8.4 L Phosphorus 3.7 Magnesium 1.8 Crossmatch Microbiology 06/02/18 14:12 Urine - Urine Nephrostomy Tube Left Urine Culture - Final NO GROWTH OBTAINED ASSESSMENT AND PLAN: 57 yom with PMHx of ASHD, [place], S/P CABG, PCI/stent, ICD implant(2007), HTN, hypercholesterolemia, IDDM on insulin pump, CKD stage III -IV (baseline cr around 3) gout and 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 -Left ureteral stone with left mild to moderate hydronephrosis s/p Left PCN , s/p left cystoscopy/ureteroscopy/Left Ureteral stent placement and removal of PCN tube 06/07 -HECTOR on CKD stage IV -Hyperkalemia, resolved -Acute on chronic anemia, suspect from bloody drainage/HECTOR, with component of hemodilution -Elevated troponin likely demand induced from above vs severe HECTOR rather than ACS -Ischemic cardiomyopathy -CAD s/p CABG/KS/PCI, abnormal stress test in 06/2017 -IDDM on insulin pump -HTN -s/p AICD -Gout Plan: Cr at baseline. Discussed with Dr. Yasir Tristan, agree with dc abx, and resuming plavix in 2 days. Ok with D.c, patient to follow up on 06/15 at 9AM with him. Chest pain earlier today, Dr. Burks was notified, patient with known angina on sl NTG. No intervention recommended. Currently asymptomatic. Discussed with claire Kincaid to resume entresto. resume home meds and insulin pump. Endocrine input appreciated. D/c home today. Discharge plan including urology follow up, resumption of plavix in 2 days, need for renal function monitoring and follow up with PCP/nephrology/cardiology addressed in detail with patient. Patient relays understanding and agrees to comply. D/c home today
[2018-06-08] MEDS: RANITIDINE HCL 150 MG TABLET (FP) PO SCH (09:26)
[2018-06-08] MEDS: RANOLAZINE E.R. 500 MG TABLET (FP) PO SCH (09:27)
[2018-06-08] MEDS: CARVEDILOL 25 MG TABLET (FP) PO SCH (09:27)
--- NOTE | 2018-06-08 09:33 | CONSULT ---
Consult Consult Specialty:: Endocrinology Referred by:: Dr Blackburn Reason for Consultation:: Hyperglycemia - History of Present Illness Chief Complaint: Abd pain History of Present Illness: This is a 57y/o M with T2DDM, on Insulin pump, retinopathy with left eye blindness, HLD, and CKD (baseline Cr 3.6-4.0) who presented with c/onausea, L flank pain and constipation. CT done in the ED detected a L distal ureteral 6mm stone with obstruction resulting in moderate hydronephrosis. Pt states he has a known kidney stone on his L side, however at the time of diagnosis there was no further workup to be done. Pt denies any recent antibiotics or any ureteral/bladder/renal interventions performed. Had cystoscopic placement of left ureteral stent yesterday. Pt had gone to [facility] previoulsyt and was apparently discharged due to negative workup on 05/26/18. Pt referred for management of hyperglycemia. Pt says his blood sugar was good when on Insulin pump which was d/charles as part of preparation for the procedure. Review of pump shows a basal rate of 1.5 units/hr. Does manual bolus of around 30 units each meal. FS at home in the 100s. No hypos. C/O numbness of feet for sometime. 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 History of Recent Travel: No Home Medications - Allergies Allergies/Adverse Reactions: Allergies Allergy/AdvReac Type Severity Reaction Status Date / Time No Known Allergies Allergy Verified 06/01/18 11:06 - Home Medications Home Medications: Ambulatory Orders Clopidogrel Bisulfate [Plavix -] 75 mg PO DAILY 07/13/13 Ranolazine [Ranexa] 500 mg PO BID 07/13/13 Ranitidine [Zantac -] 150 mg PO BID 06/19/17 Clonidine Patch [Catapres Tts Patch -] 0.3 mg TD WEEKLY 06/21/17 Aspirin [ASA -] 81 mg PO DAILY 09/28/17 Nitroglycerin [Nitrostat] 0.4 mg SL PRN PRN 09/28/17 Torsemide 1 tab PO DAILY 09/29/17 Carvedilol [Coreg -] 25 mg PO BID #60 tablet 09/30/17 Atorvastatin Ca [Lipitor] 80 mg PO HS 06/01/18 Ergocalciferol (Vitamin D2) [Vitamin D2] 50,000 unit PO WEEKLY 06/01/18 Insulin Lispro [Humalog] 0 unit SQ ASDIR PRN 06/01/18 [place]-3 Fatty Acids [[place]-3] 1,000 mg PO BID 06/01/18 Sacubitril/Valsartan [Entresto 49 mg-51 mg Tablet] 1 each PO BID 06/01/18 Family Disease History - Family Disease History Family Disease History: Diabetes: Mother (), Brother, Heart Disease: Mother, Brother Review of Systems - Review of Systems Constitutional: reports: Loss of Appetite Eyes: reports: Other (left eye blindness) Neck: reports: No Symptoms Cardiovascular: reports: No Symptoms Respiratory: reports: No Symptoms Gastrointestinal: reports: No Symptoms Genitourinary: reports: No Symptoms Musculoskeletal: reports: No Symptoms Integumentary: reports: No Symptoms Neurological: reports: No Symptoms Endocrine: reports: No Symptoms Hematology/Lymphatic: reports: No Symptoms Physical Exam Vital Signs: Vital Signs Temperature 97.7 F 06/08/18 09:25 Pulse Rate 82 06/08/18 09:25 Respiratory Rate 18 06/08/18 09:25 Blood Pressure 118/62 06/08/18 09:25 O2 Sat by Pulse Oximetry (%) 100 06/07/18 21:00 Constitutional: Yes: No Distress, Calm Eyes: Yes: Conjunctiva Clear, Other (left cornea opaque) HENT: Yes: Atraumatic, Normocephalic Neck: Yes: Supple, Trachea Midline Cardiovascular: Yes: Regular Rate and Rhythm, Murmur Respiratory: Yes: Regular, CTA Bilaterally Gastrointestinal: Yes: Normal Bowel Sounds, Soft Musculoskeletal: Yes: WNL Extremities: Yes: WNL Edema: No Neurological: Yes: Alert, Oriented Labs: CBC, BMP 06/08/18 07:00 06/08/18 07:15 Assessment/Plan AP; Left Ureteric stone s/p removal T2DM: A1c 8.6 CKD AICD implant HLD Left eye blindness ?Neuropathy BGM QACHS Levemir 20 units BID Increase NOvolog Coverage Will restart Insulin pump tomorrow if food intake improves. Neurology consult as outpatient. Will F/u
[2018-06-08] MEDS ORDERED: ASPIRIN 81 MG CHEWABLE TABLETS PO SCH (10:00)
--- NOTE | 2018-06-08 12:34 | PN ---
Progress Note, Physician Chief Complaint: Events noted Post ureteral stent Hemodynamically stable History of Present Illness: Patient was seen and examined. Awake and alert. Chart was reviewed Denies chest pain, SOB or palpitations - Current Medication List Current Medications: Active Medications Acetaminophen (Tylenol -) 650 mg PO Q4H PRN PRN Reason: PAIN LEVEL 1-5 Aspirin (Asa -) 81 mg PO DAILY [facility] Last Admin: 06/08/18 09:26 Dose: 81 mg Atorvastatin Calcium (Lipitor -) 80 mg PO HS [facility] Last Admin: 06/07/18 22:53 Dose: 80 mg Carvedilol (Coreg -) 25 mg PO BID [facility] Last Admin: 06/08/18 09:27 Dose: 25 mg Clonidine HCl (Catapres Tts Patch -) 0.3 mg TD Q7D@1700 [facility] Insulin Aspart (Novolog Vial Sliding Scale -) 0 vial SQ [facility]; Protocol Insulin Aspart (Novolog Vial Sliding Scale -) 1 vial SQ TIDAC [facility]; Protocol Last Admin: 06/08/18 12:14 Dose: 12 units Insulin Detemir (Levemir Vial) 20 units SQ BID@0700,2200 [facility] Last Admin: 06/08/18 06:51 Dose: 20 units Nitroglycerin (Nitrostat -) 0.4 mg SL Q5M PRN PRN Reason: FOR CHEST PAIN Ondansetron HCl (Zofran Injection) 4 mg IVPUSH Q6H PRN PRN Reason: NAUSEA AND/OR VOMITING Last Admin: 06/07/18 15:30 Dose: 4 mg Ranitidine HCl (Zantac -) 150 mg PO BID [facility] Last Admin: 06/08/18 09:26 Dose: 150 mg Ranolazine (Ranexa -) 500 mg PO BID [facility] Last Admin: 06/08/18 09:27 Dose: 500 mg Tamsulosin HCl (Flomax -) 0.4 mg PO DAILY@0830 [facility] Last Admin: 06/08/18 09:26 Dose: 0.4 mg - Objective Vital Signs: Vital Signs Temperature 97.7 F 06/08/18 09:25 Pulse Rate 82 06/08/18 09:25 Respiratory Rate 18 06/08/18 09:25 Blood Pressure 118/72 06/08/18 09:25 O2 Sat by Pulse Oximetry (%) 100 06/07/18 21:00 HENT: Yes: Atraumatic Neck: Yes: Supple Cardiovascular: Yes: Regular Rate and Rhythm, S1, S2 Respiratory: Yes: CTA Bilaterally Gastrointestinal: Yes: Normal Bowel Sounds, Soft. No: Tenderness Edema: No Labs: CBC, BMP 06/08/18 07:00 06/08/18 07:15 Problem List - Problems (1) Acute on chronic kidney failure Code(s): N17.9 - ACUTE KIDNEY FAILURE, UNSPECIFIED; N18.9 - CHRONIC KIDNEY DISEASE, UNSPECIFIED (2) Nephrolithiasis Code(s): N20.0 - CALCULUS OF KIDNEY (3) Obstructive uropathy Code(s): N13.9 - OBSTRUCTIVE AND REFLUX UROPATHY, UNSPECIFIED (4) Acute on chronic systolic (congestive) heart failure Code(s): I50.23 - ACUTE ON CHRONIC SYSTOLIC (CONGESTIVE) HEART FAILURE (5) Anemia Code(s): D64.9 - ANEMIA, UNSPECIFIED Qualifiers: Anemia type: unspecified type Qualified Code(s): D64.9 - Anemia, unspecified (6) Aortic valve stenosis Code(s): I35.0 - NONRHEUMATIC AORTIC (VALVE) STENOSIS Qualifiers: Cardiac valve disease etiology: nonrheumatic Qualified Code(s): I35.0 - Nonrheumatic aortic (valve) stenosis (7) CAD (coronary artery disease) Code(s): I25.10 - ATHSCL HEART DISEASE OF [place] CORONARY ARTERY W/O ANG PCTRS Qualifiers: Coronary Disease-Associated Artery/Lesion type: [place] artery [place] vs. transplanted heart: [place] heart Associated angina: without angina Qualified Code(s): I25.10 - Atherosclerotic heart disease of [place] coronary artery without angina pectoris (8) Demand ischemia Code(s): I24.8 - OTHER FORMS OF ACUTE ISCHEMIC HEART DISEASE (9) Diabetes mellitus Code(s): E11.9 - TYPE 2 DIABETES MELLITUS WITHOUT COMPLICATIONS Qualifiers: Diabetes mellitus type: type 2 Diabetes mellitus complication status: without complication (10) HLD (hyperlipidemia) Code(s): E78.5 - HYPERLIPIDEMIA, UNSPECIFIED Qualifiers: Hyperlipidemia type: pure hypercholesterolemia Qualified Code(s): E78.00 - Pure hypercholesterolemia, unspecified (11) HTN (hypertension) Code(s): I10 - ESSENTIAL (PRIMARY) HYPERTENSION Qualifiers: Hypertension type: essential hypertension Qualified Code(s): I10 - Essential (primary) hypertension (12) History of coronary artery stent placement Code(s): Z95.5 - PRESENCE OF CORONARY ANGIOPLASTY IMPLANT AND GRAFT (13) Hx of CABG Code(s): Z95.1 - PRESENCE OF AORTOCORONARY BYPASS GRAFT (14) ICD (implantable cardioverter-defibrillator) in place Code(s): Z95.810 - PRESENCE OF AUTOMATIC (IMPLANTABLE) CARDIAC DEFIBRILLATOR (15) Sleep apnea Code(s): G47.30 - SLEEP APNEA, UNSPECIFIED Qualifiers: Sleep apnea type: obstructive Qualified Code(s): G47.33 - Obstructive sleep apnea (adult) (pediatric) (16) Systolic dysfunction without heart failure Code(s): I51.9 - HEART DISEASE, UNSPECIFIED Assessment/Plan 1. Acute on CKD, left obstruction from kidney stone post nephrostomy decompression - intervention cystoscopy, retrograde pyelogram, stent, removal of nephrostomy tube 2. CKD stage 4 (baseline Cr 3.8) secondary to suspected diabetic nephropathy 3. Systolic LV systolic dysfunction, euvolemic 4. Aortic valve disease - aortic stenosis 5. CAD, history of ND, s/p CABG, PCI/stent - elevated troponin referable to demand ischemia 6. Hypertension 7. Hypercholesterolemia 8. Post ICD implant due to low LVEF and CHF 9. Anemia of CKD 10. Gout 11. OSAS on CPAP PLAN: 1. Present management and continue hydration as needed 2. Currently on Carvedilol 25 bid, Ranexa 500 bid and Lipitor 80 qhs 3. Continue ASA 81 qd to decrease risk of very late stent thrombosis. Plavix held until further instruction 4. Resume Entresto 49/51 bid and Demadex 20 qd once renal function and hyperkalemia stabilizes 5. DVT prophylaxis, empiric antibiotic course Further plans are to follow Paras Jensen MD
--- NOTE | 2018-06-08 14:58 | DS ---
Physical Exam: SUBJECTIVE: Patient seen and examined. Pt. complained of some chest pain that resolved on its own, endorse that this happens at home and he take nitroglycerin for it to good effect. Pt. is passing light yellow urine, endorses having appetite. Pt. denies nausea at this time. Pt. endorses baseline tingling in his feet 2/2 diabetic neuropathy. OBJECTIVE: Vital Signs Period Temp Pulse Resp BP Sys/Gallo Pulse Ox Last 24 Hr 97.6 F-98.5 F 72-88 18-18 118-170/58-88 95-100 PHYSICAL EXAM GENERAL: The patient is awake, alert, and fully oriented, in no acute distress. HEAD: Normal with no signs of trauma. EYES: PERRL, extraocular movements intact, sclera anicteric, conjunctiva clear. ENT: dry mucous membranes. NECK: Trachea midline, full range of motion, supple. LUNGS: clear to auscultation bilaterally, no wheezes, no crackles, no CVA tenderness, surgical wound c/d/i, no accessory muscle use. HEART: Regular rate and rhythm, S1, S2 without murmur, rub or gallop. ABDOMEN: Soft, nontender, nondistended, normoactive bowel sounds, no guarding, no rebound EXTREMITIES: 2+ right radial pulse, warm, well-perfused, no edema, no calf tenderness. NEUROLOGICAL: Cranial nerves II through XII grossly intact. Normal speech, gait not observed. PSYCH: Normal mood, normal affect. SKIN: Warm, dry, normal turgor, no rashes or lesions noted. LABS Laboratory Results - last 24 hr 06/04/18 06/07/18 06/07/18 09:35 17:35 22:46 WBC RBC Hgb Hct MCV MCH MCHC RDW Plt Count MPV Sodium Potassium Chloride Carbon Dioxide Anion Gap BUN Creatinine Creat Clearance w eGFR POC Glucometer 239 266 Random Glucose Calcium Phosphorus Magnesium Troponin I Crossmatch See Detail 06/08/18 06/08/18 06/08/18 06:31 07:00 07:15 WBC 6.5 RBC 2.77 L Hgb 8.3 L Hct 25.1 L MCV 90.4 MCH 29.8 MCHC 33.0 RDW 15.2 Plt Count 208 MPV 6.5 L Sodium 139 Potassium 4.7 Chloride 110 H Carbon Dioxide 21 Anion Gap 7 L BUN 69 H Creatinine 3.8 H Creat Clearance w eGFR 16.56 POC Glucometer 327 Random Glucose 294 H Calcium 8.4 L Phosphorus 3.7 Magnesium 1.8 Troponin I 0.18 H Crossmatch 06/08/18 12:11 WBC RBC Hgb Hct MCV MCH MCHC RDW Plt Count MPV Sodium Potassium Chloride Carbon Dioxide Anion Gap BUN Creatinine Creat Clearance w eGFR POC Glucometer 321 Random Glucose Calcium Phosphorus Magnesium Troponin I Crossmatch HOSPITAL COURSE: Date of Admission:06/01/18 Date of Discharge: 06/08/18 A 57 y.o. M w/ PMHx. of CAD (s/p CABG w/ stent, and ICD placement 2007), HTN, HLD, IDDM, CKD(Stage IV, Cr. 3.0), gout, left eye blindness 2/2 retinal detachment and abnormal stress test in 06/2017 presented with left ureteral stone, hydronephrosis and HECTOR on CKD. CT- A/P showed 5mm left ureteral stone. Echo was performed showing mild to moderately reduced left ventricular function. Pt. received emergent Left percutaneous nephrostomy. Pt. stabilzed back to baseline and nephrostomy was reversed, stent was placed. No stone was recovered. Entire hospital course was discussed and agreed upon with patient. Minutes to complete discharge: 32 Discharge Summary Reason For Visit: ACUTE RENAL FAILURE SUPERIMPOSED ON CKD Current Active Problems Acute on chronic kidney failure (Acute) Nephrolithiasis (Acute) Obstructive uropathy (Acute) Renal colic on left side (Acute) Condition: Improved - Instructions Diet, Activity, Other Instructions: You were admitted for a stone that was blocking the left tube from your kidney to your bladder. We placed a drain above the blockage site to relieve the pressure on the kidney. We then placed a temporary stent in the ureter to help keep the ureter open. Medication changes: Start Plavix after 2 days, that is on 06/10/2018 if no concerns or bleeding. You are started on flomax, continue daily as directed till further instructed by your urologist. Resume all your other medications including insulin pump as before. FOLLOW UP: You will need to follow up with urologist to discuss further plan and stent removal. Please follow up with your Urologist Dr. Sales on June 15, 2018 at 9AM. Please call his office on discharge to confirm appointment. Follow up with Dr. Pendleton in 1 week. Follow up with your primary doctor in 1 week. Follow up with your injection molder in 1-2 weeks. Follow up Blood work: BMP (basic metabolic panel) in 5-[address] Pendleton or your regular doctor. Please call 911 or come to ED if any blood in urine, inability to urinate, fevers, chills, severe back or belly pain, chest pain or new concerns noted. Referrals: Bridgett Mullen MD [Staff Physician] - 2 Weeks Chandu Stevenson MD [Primary Care Provider] - Jm Sales MD [Staff Physician] - 06/15/18 9:00 am Jose Manuel Pendleton MD [Staff Physician] - 1 Week Disposition: HOME - Home Medications Comprehensive Discharge Medication List: Ambulatory Orders Clopidogrel Bisulfate [Plavix -] 75 mg PO DAILY 07/13/13 Ranolazine [Ranexa] 500 mg PO BID 07/13/13 Ranitidine [Zantac -] 150 mg PO BID 06/19/17 Clonidine Patch [Catapres Tts Patch -] 0.3 mg TD WEEKLY 06/21/17 Aspirin [ASA -] 81 mg PO DAILY 09/28/17 Nitroglycerin [Nitrostat] 0.4 mg SL PRN PRN 09/28/17 Torsemide 1 tab PO DAILY 09/29/17 Carvedilol [Coreg -] 25 mg PO BID #60 tablet 09/30/17 Atorvastatin Ca [Lipitor] 80 mg PO HS 06/01/18 Ergocalciferol (Vitamin D2) [Vitamin D2] 50,000 unit PO WEEKLY 06/01/18 Insulin Lispro [Humalog] 0 unit SQ ASDIR PRN 06/01/18 [place]-3 Fatty Acids [[place]-3] 1,000 mg PO BID 06/01/18 Sacubitril/Valsartan [Entresto 49 mg-51 mg Tablet] 1 each PO BID 06/01/18 This patient is new to me today: No Emergency Visit: Yes ED Registration Date: 06/01/18 Care time: The patient presented to the Emergency Department on the above date and was hospitalized for further evaluation of their emergent condition. Critical Care patient: No - Discharge Referral Referred to [facility] Med P.C.: No
[2018-06-08 15:06] VITALS: BP 135/80; PULSE 76; TEMP 97.3
[2018-06-08] MEDS ORDERED: INSULIN SLIDING SCALE (NOVOLOG) 1 VIAL SQ SCH (22:00)
--- NOTE | 2018-06-09 09:44 | PATH ---
Surgical Pathology Report Patient Name: MIRI ARMENDARIZ Med. Rec. #: [id number] /Age/Gender: 1960 (Age: 57) / M Account: [id number] Location: [address] [place] [address]/[facility] Taken: 06/07/2018 Received: 06/08/2018 Reported: 06/09/2018 Physicians: Jm Sales PHYSICIAN EMERGENCY DEPT Specimen(s) Received NEPHROSTOMY TUBE Clinical History Acute renal failure, superimposed on CKD Final Diagnosis NEPHROSTOMY TUBE, REMOVAL: NEPHROSTOMY TUBE. MACROSCOPIC DIAGNOSIS. Electronically Signed Fabby Desouza M.D. Gross Description Received fresh labeled "nephrostomy tube," is a 19 cm in length blue portion of tubing. No soft tissue is present. No sections are submitted, gross only. DL/06/08/2018 [place]/06/08/2018
[2018-06-13] MEDS ORDERED: cloNIDine-TTS 0.3 MG /24 HRS PATCH.TDWK TD SCH ×2 (17:00)
== END 2018-06-08 16:56 | disposition home or self-care (01) | DRG 660 ==
LOC: JER 10:52 → JERBED 18:13 → J5S 20:19
PROVIDERS: ADMIT Internal Medicine; ATTEND Hospitalist
PROC: 0T9130Z Drainage of Left Kidney with Drainage Device, Percutaneous Approach (ICD-10-PCS; 2018-06-07)
PROC: BT1FZZZ Fluoroscopy of Left Kidney, Ureter and Bladder (ICD-10-PCS; 2018-06-07)
PROC: 0T778DZ Dilation of Left Ureter with Intraluminal Device, Via Natural or Artificial Opening Endoscopic (ICD-10-PCS; principal; 2018-06-07 10:00)
DX: N17.9 Acute kidney failure, unspecified (principal); I13.0 Hypertensive heart and chronic kidney disease with heart failure and stage 1 through stage 4 chronic kidney disease, or unspecified chronic kidney disease; I50.20 Unspecified systolic (congestive) heart failure; E87.2 Acidosis; N13.2 Hydronephrosis with renal and ureteral calculous obstruction; I25.2 Old myocardial infarction; I25.10 Atherosclerotic heart disease of native coronary artery without angina pectoris; E78.5 Hyperlipidemia, unspecified; G47.33 Obstructive sleep apnea (adult) (pediatric); I35.0 Nonrheumatic aortic (valve) stenosis; D63.8 Anemia in other chronic diseases classified elsewhere; I25.5 Ischemic cardiomyopathy; E11.22 Type 2 diabetes mellitus with diabetic chronic kidney disease; N18.4 Chronic kidney disease, stage 4 (severe); H54.40 Blindness, one eye, unspecified eye; R31.0 Gross hematuria; E88.09 Other disorders of plasma-protein metabolism, not elsewhere classified; E87.5 Hyperkalemia; E66.9 Obesity, unspecified; Z68.38 Body mass index [BMI] 38.0-38.9, adult; Z95.1 Presence of aortocoronary bypass graft; Z95.810 Presence of automatic (implantable) cardiac defibrillator; Z79.4 Long term (current) use of insulin; K59.00 Constipation, unspecified
CPT/HCPCS: 36415; 50432; 50435; 71045-TC-FY; 74176-TC; 76000-TC-FY; 76098-TC-FY; 76998-TC; 80048; 80053; 81003; 81015; 82009; 82550; 82728; 82962; 83036; 83540; 83550; 83605; 83735; 84100; 84484; 85025; 85027; 85610; 86850; 86900; 86901; 86922; 87086; 87899; 88300-TC; 93005; 93010; 93306-TC; 94760; 99282-25; A4358; C1729; C1769; J0885; J1644; J1756; J7030; Q9967

== ENCOUNTER 2018-08-17 13:48 | Inpatient (IN) | payer BC ==
--- NOTE | 2018-08-17 14:01 | PDOC ---
History of Present Illness - General Stated Complaint: POSS FLU LIKE, BODYACHE Time Seen by Provider: 08/17/18 14:01 Past History - Past Medical History Allergies/Adverse Reactions: Allergies Allergy/AdvReac Type Severity Reaction Status Date / Time No Known Allergies Allergy Verified 08/17/18 13:51 Home Medications: Ambulatory Orders Ranolazine [Ranexa] 500 mg PO BID 07/13/13 Ranitidine [Zantac -] 150 mg PO BID 06/19/17 Clonidine Patch [Catapres Tts Patch -] 0.3 mg TD WEEKLY 06/21/17 Aspirin [ASA -] 81 mg PO DAILY 09/28/17 Nitroglycerin [Nitrostat] 0.4 mg SL PRN PRN 09/28/17 Torsemide 1 tab PO DAILY 09/29/17 Carvedilol [Coreg -] 25 mg PO BID #60 tablet 09/30/17 Atorvastatin Ca [Lipitor] 80 mg PO HS 06/01/18 Ergocalciferol (Vitamin D2) [Vitamin D2] 50,000 unit PO WEEKLY 06/01/18 Insulin Lispro [Humalog] 0 unit SQ ASDIR PRN 06/01/18 [place]-3 Fatty Acids [[place]-3] 1,000 mg PO BID 06/01/18 Sacubitril/Valsartan [Entresto 49 mg-51 mg Tablet] 1 each PO BID 06/01/18 Clopidogrel Bisulfate [Plavix -] 75 mg PO DAILY 30 Days #0 tab 06/08/18 Tamsulosin HCl [Flomax -] 0.4 mg PO DAILY@0830 30 Days #30 cap.er.24h 06/08/18 Anemia: Yes Asthma: No Cancer: No Cardiac Disorders: Yes (cad,mi Defibrilator) CVA: No COPD: No CHF: Yes Dementia: No Diabetes: Yes (IDDM) GI Disorders: No Disorders: No HTN: Yes Hypercholesterolemia: Yes Liver Disease: No Seizures: No Thyroid Disease: No - Surgical History Cardiac Surgery: Yes (CABG,ICD,CARD STENT X1, DEFIBRILLATOR) GI Surgery: Yes (INSULIN PUMP) Orthopedic Surgery: Yes (left knee arthoscopy) - Suicide/Smoking/Psychosocial Hx Smoking History: Unknown if ever smoked Hx Alcohol Use: No Drug/Substance Use Hx: No Substance Use Type: None Hx Substance Use Treatment: No *Physical Exam - Vital Signs Last Vital Signs Temp Pulse Resp BP Pulse Ox 101.6 F H 81 24 H 96/46 L 94 L 08/17/18 13:52 08/17/18 13:52 08/17/18 13:52 08/17/18 13:52 08/17/18 13:52 Moderate Sedation - Procedure Monitoring Vital Signs: Procedure Monitoring Vital Signs Temperature 101.6 F H 08/17/18 13:52 Pulse Rate 81 08/17/18 13:52 Respiratory Rate 24 H 08/17/18 13:52 Blood Pressure 96/46 L 08/17/18 13:52 O2 Sat by Pulse Oximetry (%) 94 L 08/17/18 13:52
[2018-08-17] MEDS ORDERED: SODIUM CHLORIDE 1,000 ML IV STA (14:04)
[2018-08-17] MEDS ORDERED: ACETAMINOPHEN 1000 MG/100 ML VIAL (NON FORMULARY) IVPB ONE (14:04)
[2018-08-17] MEDS ORDERED: ACETAMINOPHEN INJECTION 100 ML IVPB ONE (14:12)
[2018-08-17] MEDS ORDERED: VANCOMYCIN 1 GM in D5W (PRE-DOCKED) 1,000 MG/250 ML IVPB ONE (14:43)
[2018-08-17] MEDS ORDERED: PIPERACILLIN/TAZOB 4.5 GM 4.5 GM in DEXTROSE 5%-WATER 100 ML IVPB ONE (14:43)
[2018-08-17 14:46] LABS: BASO % 0.5 % (0-2.0); HEMATOCRIT 28.9 % (35.4-49); HEMOGLOBIN 9.6 GM/dL (11.7-16.9); LYMPH % 4.8 % (8-40); MCH 30.3 pg (25.7-33.7); MCHC 33.3 g/dl (32.0-35.9); MEAN CELL VOLUME 91.2 fl (80-96); MEAN PLT VOLUME 7.2 fl (7.5-11.1); MONO % 7.6 % (3.8-10.2); NEUT % 87.1 % (42.8-82.8); PLATELET COUNT 172 K/MM3 (134-434); RBC 3.17 M/mm3 (4.00-5.60); RDW 15.4 % (11.9-15.9); WHITE BLOOD COUNT 7.4 K/mm3 (4.0-10.0)
--- NOTE | 2018-08-17 14:47 | PDOC ---
History of Present Illness - General Chief Complaint: Respiratory Stated Complaint: POSS FLU LIKE, BODYACHE Time Seen by Provider: 08/17/18 14:01 History Source: Patient Exam Limitations: No Limitations - History of Present Illness Initial Comments: 08/17/18 14:47 Patient is a 57M with an extensive medical history, including IDDM (on insulin pump), HTN, HLD, CAD s/p CABG and s/p AICD, CHF, Aortic stenosis, CKD here today complaining of 1 day of fever, rigors, shortness of breath, myalgias and vomiting. Patient states that these symptoms onset quickly at dinnertime. 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 Last admitted in May. Patient denies headaches , neck stiffness, chest pain, abdominal pain, dysuria. Endorses some leg swelling, at baseline. Patient also reports that he's had increasing pain and swelling along left second toe after a podiatry appointment. Past History - Past Medical History Allergies/Adverse Reactions: Allergies Allergy/AdvReac Type Severity Reaction Status Date / Time No Known Allergies Allergy Verified 08/17/18 13:51 Home Medications: Ambulatory Orders Ranolazine [Ranexa] 500 mg PO BID 07/13/13 Ranitidine [Zantac -] 150 mg PO BID 06/19/17 Clonidine Patch [Catapres Tts Patch -] 0.3 mg TD WEEKLY 06/21/17 Aspirin [ASA -] 81 mg PO DAILY 09/28/17 Nitroglycerin [Nitrostat] 0.4 mg SL PRN PRN 09/28/17 Torsemide 1 tab PO DAILY 09/29/17 Carvedilol [Coreg -] 25 mg PO BID #60 tablet 09/30/17 Atorvastatin Ca [Lipitor] 80 mg PO HS 06/01/18 Ergocalciferol (Vitamin D2) [Vitamin D2] 50,000 unit PO WEEKLY 06/01/18 Insulin Lispro [Humalog] 0 unit SQ ASDIR PRN 06/01/18 [place]-3 Fatty Acids [[place]-3] 1,000 mg PO BID 06/01/18 Sacubitril/Valsartan [Entresto 49 mg-51 mg Tablet] 1 each PO BID 06/01/18 Clopidogrel Bisulfate [Plavix -] 75 mg PO DAILY 30 Days #0 tab 06/08/18 Anemia: Yes Asthma: No Cancer: No Cardiac Disorders: Yes (cad,mi Defibrilator) CVA: No COPD: No CHF: Yes Dementia: No Diabetes: Yes (IDDM) GI Disorders: No Disorders: No HTN: Yes Hypercholesterolemia: Yes Liver Disease: No Seizures: No Thyroid Disease: No - Surgical History Cardiac Surgery: Yes (CABG,ICD,CARD STENT X1, DEFIBRILLATOR) GI Surgery: Yes (INSULIN PUMP) Orthopedic Surgery: Yes (left knee arthoscopy) - Suicide/Smoking/Psychosocial Hx Smoking History: Unknown if ever smoked Hx Alcohol Use: No Drug/Substance Use Hx: No Substance Use Type: None Hx Substance Use Treatment: No Review of Systems - Review of Systems Comments:: 08/17/18 14:52 GENERAL/CONSTITUTIONAL: No fever or chills. No weakness. HEAD, EYES, EARS, NOSE AND THROAT: No change in vision. No sore throat. CARDIOVASCULAR: No chest pain +shortness of breath RESPIRATORY: No cough, wheezing, or hemoptysis. GASTROINTESTINAL: +nausea, +vomiting, no diarrhea or constipation. GENITOURINARY: No dysuria, frequency, or change in urination. MUSCULOSKELETAL: +myalgias No neck or back pain. SKIN: No rash NEUROLOGIC: No headache, vertigo, loss of consciousness, or change in strength/ sensation. ENDOCRINE: No increased thirst. No abnormal weight change *Physical Exam - Vital Signs Last Vital Signs Temp Pulse Resp BP Pulse Ox 101.6 F H 81 24 H 96/46 L 94 L 08/17/18 13:52 08/17/18 13:52 08/17/18 13:52 08/17/18 13:52 08/17/18 13:52 - Physical Exam Comments: 08/17/18 14:54 GENERAL: Awake, alert, and fully oriented, diaphoretic HEAD: No signs of trauma, normocephalic, atraumatic EYES: PERRLA, EOMI, sclera anicteric, conjunctiva clear ENT: Auricles normal inspection, hearing grossly normal, nares patent, oropharynx clear without exudates. Moist mucosa NECK: Normal ROM, supple, no lymphadenopathy, JVD, or masses LUNGS: No distress, speaks full sentences, coarse breath sounds bilaterally HEART: Regular rate and rhythm, normal S1 and S2, no murmurs, rubs or gallops, peripheral pulses normal and equal bilaterally. ABDOMEN: Soft, nontender, normoactive bowel sounds. No guarding, no rebound. No masses EXTREMITIES: erythematous left second toe, Normal range of motion, trace edema. No clubbing or cyanosis. NEUROLOGICAL: Cranial nerves II through XII grossly intact. Normal speech, no focal sensorimotor deficits SKIN: Warm, Dry, normal turgor, no rashes or lesions noted. Moderate Sedation - Procedure Monitoring Vital Signs: Procedure Monitoring Vital Signs Temperature 101.6 F H 08/17/18 13:52 Pulse Rate 81 08/17/18 13:52 Respiratory Rate 24 H 08/17/18 13:52 Blood Pressure 96/46 L 08/17/18 13:52 O2 Sat by Pulse Oximetry (%) 94 L 08/17/18 13:52 ED Treatment Course - LABORATORY CBC & Chemistry Diagram: 08/17/18 14:18 08/17/18 14:18 - RADIOLOGY Radiology Studies Ordered: Category Date Time Status CHEST X-RAY PORTABLE* [RAD] Stat Radiology 08/17/18 14:03 Completed - Medications Given in the ED: ED Medications Discontinued Medications Generic Name Dose Route Start Last Admin Trade Name Freq PRN Reason Stop Dose Admin Acetaminophen 1,000 mg 08/17/18 14:04 08/17/18 14:22 Ofirmev Injection - IVPB 08/17/18 14:05 1,000 mg ONCE ONE Administration Medical Decision Making - Medical Decision Making 08/17/18 14:55 Patient is a 57M with an extensive medical history, including IDDM (on insulin pump), HTN, HLD, CAD s/p CABG and s/p AICD, CHF, Aortic stenosis, CKD here today complaining of 1 day of fever, rigors, shortness of breath, myalgias and vomiting. Vitals notable for fever, tachypnea, low blood pressure. DDx includes , but is not limited to: pneumonia, influenza, osteomyelitis in left toe causing bacteremia. Septic workup initiated. Will treat with 1L fluids, vanc, zosyn. Will reassess after initial fluid bolus, starting slow given patient's CHF history and normal mental status. 08/17/18 16:05 CBC shows no leukocytosis. CMP shows CKD, around baseline. K normal. Lactate normal. Troponin elevated to 34. 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 Dr Camila wyatt, case discussed. Will give aspirin, holding on heparinizing patient. EKG shows ST depression in I and aVL with inversions. Normal sinus rhythm with rate of 75. No st elevations. Normal axis. QTc 462, MN/QRS normal. Flu negative. At this point, clinical picture is unclear. DDx: primary IL, IL 2/2 septic shock with unknown source, ?osteo seeding bacteremia? Patient's last MAP 64. Continuing to gently resuscitate given CHF history, normal lactate. 08/17/18 16:39 Bedside echo shows LVH with moderate LV dysfunction. No effusion. Repeat MAP 61 after 1L in. Discussed central line with patient, currently declining. Will give 500cc of fluid, continue to closely monitor. ICU/hospitalist paged. 08/17/18 16:54 D/w Dr Rm, approved for ICU, Maribel attending. *DC/Admit/Observation/Transfer Diagnosis at time of Disposition: Sepsis, Troponin I above reference range - Discharge Dispostion Condition at time of disposition: Critical Decision to Admit order: Yes - Referrals - Patient Instructions - Post Discharge Activity
[2018-08-17 14:50] LABS: VENOUS PC02 36.6 mmHg (38-52); VENOUS PH 7.39 (7.32-7.42); VENOUS PO2 33.8 mmHg (28-48)
[2018-08-17 15:12] LABS: INR 1.22 (0.83-1.09); PROTHROMBIN TIME (PATIENT) 14.4 SEC (9.7-13.0)
[2018-08-17 15:15] LABS: ACTIVATED PTT 29.5 SECONDS (25.2-36.5)
[2018-08-17 15:16] LABS: ALBUMIN 2.9 g/dl (3.4-5.0); ALK PHOS 89 U/L (45-117); ANION GAP 10 MMOL/L (8-16); BILIRUBIN,TOTAL 0.6 mg/dL (0.2-1); BLOOD UREA NITROGEN 88 mg/dL (7-18); CALCIUM 7.7 mg/dL (8.5-10.1); CHLORIDE 106 mmol/L (98-107); CO2 22 mmol/L (21-32); CREATININE 4.4 mg/dL (0.55-1.3); GLUCOSE,RANDOM 155 mg/dL (74-106); POTASSIUM 4.9 mmol/L (3.5-5.1); SGOT/AST 107 U/L (15-37); SGPT/ALT 25 U/L (13-61); SODIUM 138 mmol/L (136-145); TOT PROT 6.8 g/dl (6.4-8.2)
[2018-08-17] MEDS ORDERED: PIPERACILLIN/TAZOB 4.5 GM 4.5 GM/100 ML BAG IVPB ONE (15:20)
[2018-08-17] MEDS ORDERED: ASPIRIN 81 MG CHEWABLE TABLETS PO ONE (15:24)
--- NOTE | 2018-08-17 15:27 | PDOC ---
Attending Attestation - Resident Resident Name: LamontGarrett cummings - HPI HPI: 08/17/18 16:01 Pt presents to the ED complaining of fever with rigors and generalized malaise, accompanied by shortness of breath that started yesterday. Denies chest or abdominal pain. Multiple medical comorbitities as detailed in resident note. - Physicial Exam PE: 08/17/18 16:04 Agree with resident exam. Patient is alert and oriented x 3. Lungs are clear. Abdomen is soft, non tender and non distended. - Critical Care Time Total Critical Care Time: 30 Critical Care Statement: The care of this patient involved high complexity decision making to prevent further life threatening deterioration of the patient 's condition and/or to evaluate & treat vital organ system(s) failure or risk of failure. - Medical Decision Making 08/17/18 16:05 Pt presents to the ED with symptoms suggestive of sepsis. Febrile on arrival to the ED, with borderline hypotension, but awake and alert and not in apparent distress. Labs show troponin of 34. EKG shows a slight ST depression in 1, but no STEMI. Case discussed with cardiology, who recommends ASA but no anticoagulation. Will start broad spectrum antibiotics and admit to ICU if BP does not improve after fluid resuscitation. 08/17/18 16:07
[2018-08-17] MEDS ORDERED: ASPIRIN 81 MG CHEWABLE TABLETS ONE (15:44)
[2018-08-17] MEDS ORDERED: SODIUM CHLORIDE 500 ML IV STA (16:35)
[2018-08-17] MEDS ORDERED: LACTATED RINGERS SOLUTION 1000 ML INFUS.BAG IV ONE ×3 (17:46→18:00)
--- NOTE | 2018-08-17 18:12 | HP ---
Admitting History and Physical - Primary Care Physician PCP: none - Admission Chief Complaint: I was shaking History of Present Illness: Mr Long is a very pleasant 57 year old male who comes in complaining of shivering and shaking for 24 hours. 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 This visit he was accidentally cut on his toe. He says it did not bother him, however 4 days ago it began to bet red. However it was not at the site of the cut but on the other side of the tip of the toe. The redness increased and spread down his toe and the toe itself began to turn purple. Then last night he began to shake/shiver uncontrollably. He said it came in waves. He was shaking so severely that he was having difficulty walking. Because of this he came in. He says he had slight lightheadedness with this and also short of breath. He would cough at times as well and it was non- productive, however it caused a small amount of emesis once. But he otherwise did not have nausea or vomiting. He denies passing out, nasal drip, sick contacts, chest pain or pressure, abdominal pain, diarrhea, constipation, difficulty or pain on urination, or leg swelling. He is currently feeling better. 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 History of Recent Travel: No Home Medications - Allergies Allergies/Adverse Reactions: Allergies Allergy/AdvReac Type Severity Reaction Status Date / Time No Known Allergies Allergy Verified 08/17/18 13:51 - Home Medications Home Medications: Ambulatory Orders Ranolazine [Ranexa] 500 mg PO BID 07/13/13 Ranitidine [Zantac -] 150 mg PO BID 06/19/17 Clonidine Patch [Catapres Tts Patch -] 0.3 mg TD WEEKLY 06/21/17 Aspirin [ASA -] 81 mg PO DAILY 09/28/17 Nitroglycerin [Nitrostat] 0.4 mg SL PRN PRN 09/28/17 Torsemide 1 tab PO DAILY 09/29/17 Carvedilol [Coreg -] 25 mg PO BID #60 tablet 09/30/17 Atorvastatin Ca [Lipitor] 80 mg PO HS 06/01/18 Ergocalciferol (Vitamin D2) [Vitamin D2] 50,000 unit PO WEEKLY 06/01/18 Insulin Lispro [Humalog] 0 unit SQ ASDIR PRN 06/01/18 [place]-3 Fatty Acids [[place]-3] 1,000 mg PO BID 06/01/18 Sacubitril/Valsartan [Entresto 49 mg-51 mg Tablet] 1 each PO BID 06/01/18 Clopidogrel Bisulfate [Plavix -] 75 mg PO DAILY 30 Days #0 tab 06/08/18 Family Disease History - Family Disease History Family Disease History: Diabetes: Mother (), Brother, Heart Disease: Mother, Brother Review of Systems Findings/Remarks: full review of systems obtained, as per HPI and otherwise negative Physical Examination Vital Signs: Vital Signs Temperature 37.1 C 08/17/18 17:10 Pulse Rate 68 08/17/18 17:00 Respiratory Rate 18 08/17/18 17:00 Blood Pressure 98/73 08/17/18 17:00 O2 Sat by Pulse Oximetry (%) 98 08/17/18 17:00 Constitutional: Yes: No Distress, Calm, Obese Eyes: Yes: Conjunctiva Clear, EOM Intact, PERRL HENT: Yes: Atraumatic, Normocephalic Cardiovascular: Yes: Regular Rate and Rhythm. No: Gallop, Murmur, Rub Respiratory: Yes: Regular, CTA Bilaterally. No: Rales, Rhonchi, Wheezes Gastrointestinal: Yes: Normal Bowel Sounds, Soft. No: Distention, Tenderness Extremities: Yes: Other (L 2nd toe purple with erythema) Edema: No Labs: CBC, BMP 08/17/18 14:18 08/17/18 14:18 Imaging - Results Chest X-ray: Report Reviewed, Image Reviewed X-ray: Image Reviewed EKG: Image Reviewed Problem List - Problems (1) Septic shock Assessment/Plan: -secondary to cellulitis -as evidenced by fevers and hypotension, currently fluid responsive -continue IVF -continue antibiotics -ICU monitoring -may need pressors if no longer responds to fluids Code(s): A41.9 - SEPSIS, UNSPECIFIED ORGANISM; R65.21 - SEVERE SEPSIS WITH SEPTIC SHOCK (2) Cellulitis Assessment/Plan: -case d/w ID -given vancomycin and zosyn in the ED -does not need further vancomycin at this time secondary to CKD -place on merrem -consult podiatry Code(s): L03.90 - CELLULITIS, UNSPECIFIED Qualifiers: Site of cellulitis: extremity Site of cellulitis of extremity: lower extremity Laterality: left Qualified Code(s): L03.116 - Cellulitis of left lower limb (3) NSTEMI (non-ST elevated myocardial infarction) Assessment/Plan: -troponin of 34 -case d/w Dr Jensen -will place on heparin gtt -continue aspirin and plavix Code(s): I21.4 - NON-ST ELEVATION (NSTEMI) MYOCARDIAL INFARCTION (4) CKD stage 4 due to type 2 diabetes mellitus Assessment/Plan: -labs reviewed -appears slightly above baseline -recheck, consider nephrology consult in am Code(s): E11.22 - TYPE 2 DIABETES MELLITUS W DIABETIC CHRONIC KIDNEY DISEASE; N18.4 - CHRONIC KIDNEY DISEASE, STAGE 4 (SEVERE) (5) Diabetes mellitus Assessment/Plan: -insulin pump in place Code(s): E11.9 - TYPE 2 DIABETES MELLITUS WITHOUT COMPLICATIONS Qualifiers: Diabetes mellitus type: type 2 Diabetes mellitus complication status: without complication (6) HLD (hyperlipidemia) Assessment/Plan: -continue lipitor and lovaza Code(s): E78.5 - HYPERLIPIDEMIA, UNSPECIFIED Qualifiers: Hyperlipidemia type: pure hypercholesterolemia Qualified Code(s): E78.00 - Pure hypercholesterolemia, unspecified (7) HTN (hypertension) Assessment/Plan: -hold coreg -hold clonidine patch -hold entresto -hold torsemide Code(s): I10 - ESSENTIAL (PRIMARY) HYPERTENSION Qualifiers: Hypertension type: essential hypertension Qualified Code(s): I10 - Essential (primary) hypertension (8) ICD (implantable cardioverter-defibrillator) in place Code(s): Z95.810 - PRESENCE OF AUTOMATIC (IMPLANTABLE) CARDIAC DEFIBRILLATOR (9) Systolic heart failure Assessment/Plan: -not in exacerbation -continue fluid resuscitation -close monitoring in the ICU to avoid fluid overload -holding medications as above Code(s): I50.20 - UNSPECIFIED SYSTOLIC (CONGESTIVE) HEART FAILURE Qualifiers: Heart failure chronicity: chronic Qualified Code(s): I50.22 - Chronic systolic (congestive) heart failure Assessment/Plan 67 minutes spent in critical care time with this patient
[2018-08-17] MEDS ORDERED: HEPARIN NA (PORCINE) 5,000 UNITS/ML 1ML VIAL IVPUSH PRN (18:13)
[2018-08-17] MEDS: HEPARIN INFUSION - 25,000 UNITS/500 ML INFUS.BAG IVPB SCH (18:30)
--- NOTE | 2018-08-17 18:31 | CONSULT ---
Consultation: REQUESTING PROVIDER: Javi Levy MD CONSULT REQUEST: We have been asked to medically evaluate this patient for sepsis/hypotension/possible NSTEMI. HISTORY OF PRESENT ILLNESS: Patient is a 57 y/o M w/ PMHx IDDM (on insulin pump), HTN, HLD, CAD s/p CABG and s/p AICD, CHF, Aortic stenosis, CKD, p/w fever, rigors, malaise x 1 day. Denies SOB, CP, n/v/c/d. Recently had nails clipped and developed painful ulcer of left second toe. On presentation was febrile to 101.6, hypotensive, tachypneic. Hypotension did not correct on 1.5L fluid bolus in ED. Received empiric vancomycin/zosyn in ED. Additionally found to have troponemia to 34 w/ EKG suggestive of ST-depressions in I and aVL more significant than on prior EKG in May. Discussed w/ cardiology and will treat for NSTEMI in ICU w/ heparin gtt. Discussed w/ ID and will treat for sepsis. REVIEW OF SYSTEMS: As per HPI PHYSICAL EXAMINATION Vital Signs - 24 hr 08/17/18 08/17/18 08/17/18 13:52 15:40 16:13 Temperature 101.6 F H Pulse Rate 81 Pulse Rate [ 70 68 Apical] Respiratory 24 H 18 20 Rate Blood Pressure 96/46 L Blood Pressure 98/48 L 93/50 L [Left Arm] O2 Sat by Pulse 94 L 96 Oximetry (%) 08/17/18 17:10 Temperature 98.7 F Pulse Rate Pulse Rate [ Apical] Respiratory Rate Blood Pressure Blood Pressure [Left Arm] O2 Sat by Pulse Oximetry (%) GENERAL: A&Ox3, NAD HEAD: NC/AT EYES: PERRLA, EOMI EARS, NOSE, THROAT: MMM NECK: Normal range of motion, supple without lymphadenopathy, JVD, or masses. LUNGS: CTA b/l HEART: Paced rhythm, no m/r/g ABDOMEN: +bs, soft, NT, ND UPPER EXTREMITIES: 2+ pulses, warm, well-perfused. No cyanosis. No clubbing. Cap refill <2 seconds. No peripheral edema. LOWER EXTREMITIES: 1+ pulses, warm, well-perfused. No calf tenderness. No peripheral edema. Erythematous, painful ulcer of left second toe, infected- appearing NEUROLOGICAL: block cleaner, motor, sensory systems w/o focal deficit PSYCHIATRIC: Cooperative. Good eye contact. Appropriate mood and affect. SKIN: Warm, dry, normal turgor Laboratory Results - last 24 hr 08/17/18 08/17/18 08/17/18 14:18 14:18 14:18 WBC 7.4 RBC 3.17 L Hgb 9.6 L Hct 28.9 L D MCV 91.2 MCH 30.3 MCHC 33.3 RDW 15.4 Plt Count 172 MPV 7.2 L D Absolute Neuts (auto) 6.4 Neutrophils % 87.1 H D Lymphocytes % 4.8 L D Monocytes % 7.6 Eosinophils % 0.0 D Basophils % 0.5 Nucleated RBC % 0 PT with INR 14.40 H INR 1.22 H PTT (Actin FS) 29.5 VBG pH POC VBG pCO2 POC VBG pO2 Mixed VBG HCO3 Sodium 138 Potassium 4.9 Chloride 106 Carbon Dioxide 22 Anion Gap 10 BUN 88 H Creatinine 4.4 H Creat Clearance w eGFR 13.98 Random Glucose 155 H Lactic Acid Calcium 7.7 L Total Bilirubin 0.6 AST 107 H ALT 25 Alkaline Phosphatase 89 Troponin I Total Protein 6.8 Albumin 2.9 L Influenza A (Rapid) Influenza B (Rapid) 08/17/18 08/17/18 08/17/18 14:18 14:18 14:18 WBC RBC Hgb Hct MCV MCH MCHC RDW Plt Count MPV Absolute Neuts (auto) Neutrophils % Lymphocytes % Monocytes % Eosinophils % Basophils % Nucleated RBC % PT with INR INR PTT (Actin FS) VBG pH POC VBG pCO2 POC VBG pO2 Mixed VBG HCO3 Sodium Potassium Chloride Carbon Dioxide Anion Gap BUN Creatinine Creat Clearance w eGFR Random Glucose Lactic Acid 1.9 Calcium Total Bilirubin AST ALT Alkaline Phosphatase Troponin I 34.30 H* Total Protein Albumin Influenza A (Rapid) Negative Influenza B (Rapid) Negative 08/17/18 14:41 WBC RBC Hgb Hct MCV MCH MCHC RDW Plt Count MPV Absolute Neuts (auto) Neutrophils % Lymphocytes % Monocytes % Eosinophils % Basophils % Nucleated RBC % PT with INR INR PTT (Actin FS) VBG pH 7.39 POC VBG pCO2 36.6 L POC VBG pO2 33.8 Mixed VBG HCO3 22.1 Sodium Potassium Chloride Carbon Dioxide Anion Gap BUN Creatinine Creat Clearance w eGFR Random Glucose Lactic Acid Calcium Total Bilirubin AST ALT Alkaline Phosphatase Troponin I Total Protein Albumin Influenza A (Rapid) Influenza B (Rapid) ASSESSMENT/PLAN: 57 y/o M w/ PMHx IDDM (on insulin pump), HTN, HLD, CAD s/p CABG and s/p AICD, CHF, Aortic stenosis, CKD, p/w fever, rigors, malaise x 1 day, admitted to ICU for NSTEMI and sepsis. #CV -received ASA in ED, cont ASA Plavix -cardiology consulted, Pt's regular cushion filler is Dr. Mullen -case d/w Dr Jensen, will start on heparin gtt -no signs of fluid overload on PE -repeat echo -fluid bolus to correct hypotension -patient agrees to central line placement under ultrasound guidance if necessary for pressure support -hold anti-hypertensives -trend troponins #ID -empiric vanc/zosyn given -ID consulted and case discussed -with renal function, vancomycin dosing in ED sufficient and will follow -ID will add meropenem as well -Pt's superintendent colliery consulted, [place] #endocrinology -BGM ACHS -SSI #FEN -bolus Lactated Ringers then standing at 100cc/hr, further boluses PRN -monitor and correct electrolytes -diabetic diet #PPx -DVT: heparin gtt -GI: not indicated #code -full #Dispo: We will continue to follow the patient in the ICU. Thank you for this consultative opportunity. Visit type - Emergency Visit Emergency Visit: Yes Care time: The patient presented to the Emergency Department on the above date and was hospitalized for further evaluation of their emergent condition. - New Patient This patient is new to me today: Yes Date on this admission: 08/17/18 - Critical Care Critical Care patient: Yes Total Critical Care Time (in minutes): 40 Critical Care Statement: The care of this patient involved high complexity decision making to prevent further life threatening deterioration of the patient 's condition and/or to evaluate & treat vital organ system(s) failure or risk of failure.
[2018-08-17] MEDS: MEROPENEM 500 MG in DEXTROSE 5%-WATER 100 ML IVPB SCH (19:36)
[2018-08-17] MEDS: ACETAMINOPHEN 1000 MG/100 ML VIAL (NON FORMULARY) IVPB PRN (19:43)
[2018-08-17 20:21] LABS: URINE APPEARANCE CLEAR; URINE BILIRUBIN NEGATIVE (<2.0 mg/dL); URINE COLOR YELLOW; URINE GLUCOSE (UA) NEGATIVE (NEGATIVE); URINE KETONE NEGATIVE (NEGATIVE); URINE LEUK ESTERASE NEGATIVE (NEGATIVE); URINE NITRITE NEGATIVE (NEGATIVE); URINE PROTEIN 2+ (NEGATIVE); URINE UROBILINOGEN NEGATIVE mg/dL (0.2-1.0)
[2018-08-17 20:23] LABS: EPI CELLS RARE /HPF (FEW); URINE BACTERIA RARE /hpf (NONE SEEN); URINE MUCUS RARE
[2018-08-17] MEDS: LACTATED RINGERS SOLUTION 1,000 ML/1,000 ML INFUS.BAG IV SCH (21:00)
[2018-08-17] MEDS ORDERED: HEPARIN NA (PORCINE) 5,000 UNITS/ML 1ML VIAL SQ SCH (22:00)
[2018-08-17] MEDS: INSULIN SLIDING SCALE (NOVOLOG) 1 VIAL SQ SCH (22:00)
[2018-08-17] MEDS ORDERED: MUPIROCIN 2% TOPICAL OINTMENT FOR DECOLONIZATION NS SCH (22:00)
[2018-08-17] MEDS ORDERED: CHLORHEXIDINE GLUCONATE 4% CLEANSER FOR DECOLONIZATION TP SCH (22:00)
[2018-08-17] MEDS: OMEGA-3 ACID ETHYL ESTERS (FATTY-ACIDS) 1 GM CAPSULE (FP) PO SCH (22:03)
[2018-08-17] MEDS: ATORVASTATIN CA 80 MG TABLET (FP) PO SCH (22:04)
[2018-08-17] MEDS: RANITIDINE HCL 150 MG TABLET (FP) PO SCH (22:04)
[2018-08-17] MEDS: RANOLAZINE E.R. 500 MG TABLET (FP) PO SCH (22:04)
[2018-08-18] MEDS: CHLORHEXIDINE GLUCONATE 4% CLEANSER FOR DECOLONIZATION TP SCH ×2 (02:29→21:08)
[2018-08-18] MEDS: HEPARIN NA (PORCINE) 5,000 UNITS/ML 1ML VIAL IVPUSH PRN ×2 (02:35→17:32)
[2018-08-18] MEDS: ACETAMINOPHEN 1000 MG/100 ML VIAL (NON FORMULARY) IVPB PRN ×2 (04:45→21:08)
[2018-08-18] MEDS ORDERED: PT OWN MED DRAWER 7, Y5N ONE ×4 (05:03→20:40)
[2018-08-18] MEDS: INSULIN SLIDING SCALE (NOVOLOG) 1 VIAL SQ SCH ×4 (06:37→22:00)
[2018-08-18] MEDS: MEROPENEM 500 MG in DEXTROSE 5%-WATER 100 ML IVPB SCH ×2 (06:40→17:45)
[2018-08-18 08:16] LABS: BASO % 0.3 % (0-2.0); HEMATOCRIT 22.9 % (35.4-49); HEMOGLOBIN 8.1 GM/dL (11.7-16.9); LYMPH % 7.6 % (8-40); MCHC 35.3 g/dl (32.0-35.9); MEAN CELL VOLUME 90.6 fl (80-96); MEAN PLT VOLUME 6.8 fl (7.5-11.1); MONO % 8.5 % (3.8-10.2); NEUT % 83.6 % (42.8-82.8); PLATELET COUNT 130 K/MM3 (134-434); RBC 2.53 M/mm3 (4.00-5.60); RDW 15.6 % (11.9-15.9); WHITE BLOOD COUNT 5.4 K/mm3 (4.0-10.0)
--- NOTE | 2018-08-18 08:17 | PN ---
Physical Exam: SUBJECTIVE: Patient seen and examined at bedside. Resting comfortably, no CP, no SOB, no other pain. Urinating well. One episode of diarrhea overnight. OBJECTIVE: Vital Signs Period Temp Pulse Resp BP Sys/Gallo Pulse Ox Last 24 Hr 98 F-101.6 F 68-88 18-24 93-141/46-76 94-99 GENERAL: A&Ox3, NAD HEAD: NC/AT EYES: PERRLA, EOMI EARS, NOSE, THROAT: MMM NECK: Normal range of motion, supple without lymphadenopathy, JVD, or masses. LUNGS: CTA b/l HEART: Paced rhythm, no m/r/g ABDOMEN: +bs, soft, NT, ND UPPER EXTREMITIES: 2+ pulses, warm, well-perfused. No cyanosis. No clubbing. Cap refill <2 seconds. No peripheral edema. LOWER EXTREMITIES: 1+ pulses, warm, well-perfused. No calf tenderness. No peripheral edema. 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 Good eye contact. Appropriate mood and affect. SKIN: Warm, dry, normal turgor Laboratory Results - last 24 hr 08/17/18 08/17/18 08/17/18 14:18 14:18 14:18 WBC 7.4 RBC 3.17 L Hgb 9.6 L Hct 28.9 L D MCV 91.2 MCH 30.3 MCHC 33.3 RDW 15.4 Plt Count 172 MPV 7.2 L D Absolute Neuts (auto) 6.4 Neutrophils % 87.1 H D Lymphocytes % 4.8 L D Monocytes % 7.6 Eosinophils % 0.0 D Basophils % 0.5 Nucleated RBC % 0 PT with INR 14.40 H INR 1.22 H PTT (Actin FS) 29.5 VBG pH POC VBG pCO2 POC VBG pO2 Mixed VBG HCO3 Sodium 138 Potassium 4.9 Chloride 106 Carbon Dioxide 22 Anion Gap 10 BUN 88 H Creatinine 4.4 H Creat Clearance w eGFR 13.98 POC Glucometer Random Glucose 155 H Lactic Acid Calcium 7.7 L Total Bilirubin 0.6 AST 107 H ALT 25 Alkaline Phosphatase 89 Troponin I Total Protein 6.8 Albumin 2.9 L Urine Color Urine Appearance Urine pH Ur Specific [place] Urine Protein Urine Glucose (UA) Urine Ketones Urine Blood Urine Nitrite Urine Bilirubin Urine Urobilinogen Ur Leukocyte Esterase Urine WBC (Auto) Urine RBC (Auto) Ur Epithelial Cells Urine Bacteria Urine Mucus Influenza A (Rapid) Influenza B (Rapid) 08/17/18 08/17/18 08/17/18 14:18 14:18 14:18 WBC RBC Hgb Hct MCV MCH MCHC RDW Plt Count MPV Absolute Neuts (auto) Neutrophils % Lymphocytes % Monocytes % Eosinophils % Basophils % Nucleated RBC % PT with INR INR PTT (Actin FS) VBG pH POC VBG pCO2 POC VBG pO2 Mixed VBG HCO3 Sodium Potassium Chloride Carbon Dioxide Anion Gap BUN Creatinine Creat Clearance w eGFR POC Glucometer Random Glucose Lactic Acid 1.9 Calcium Total Bilirubin AST ALT Alkaline Phosphatase Troponin I 34.30 H* Total Protein Albumin Urine Color Urine Appearance Urine pH Ur Specific [place] Urine Protein Urine Glucose (UA) Urine Ketones Urine Blood Urine Nitrite Urine Bilirubin Urine Urobilinogen Ur Leukocyte Esterase Urine WBC (Auto) Urine RBC (Auto) Ur Epithelial Cells Urine Bacteria Urine Mucus Influenza A (Rapid) Negative Influenza B (Rapid) Negative 08/17/18 08/17/18 08/17/18 14:41 16:13 20:20 WBC RBC Hgb Hct MCV MCH MCHC RDW Plt Count MPV Absolute Neuts (auto) Neutrophils % Lymphocytes % Monocytes % Eosinophils % Basophils % Nucleated RBC % PT with INR INR PTT (Actin FS) VBG pH 7.39 POC VBG pCO2 36.6 L POC VBG pO2 33.8 Mixed VBG HCO3 22.1 Sodium Potassium Chloride Carbon Dioxide Anion Gap BUN Creatinine Creat Clearance w eGFR POC Glucometer Random Glucose Lactic Acid 1.1 Calcium Total Bilirubin AST ALT Alkaline Phosphatase Troponin I Total Protein Albumin Urine Color Yellow Urine Appearance Clear Urine pH 5.0 Ur Specific [place] 1.014 Urine Protein 2+ H Urine Glucose (UA) Negative Urine Ketones Negative Urine Blood 1+ H Urine Nitrite Negative Urine Bilirubin Negative Urine Urobilinogen Negative Ur Leukocyte Esterase Negative Urine WBC (Auto) <1 Urine RBC (Auto) 3 Ur Epithelial Cells Rare Urine Bacteria Rare Urine Mucus Rare Influenza A (Rapid) Influenza B (Rapid) 08/17/18 08/18/18 08/18/18 20:20 01:30 01:30 WBC RBC Hgb Hct MCV MCH MCHC RDW Plt Count MPV Absolute Neuts (auto) Neutrophils % Lymphocytes % Monocytes % Eosinophils % Basophils % Nucleated RBC % PT with INR INR PTT (Actin FS) 37.3 H VBG pH POC VBG pCO2 POC VBG pO2 Mixed VBG HCO3 Sodium Potassium Chloride Carbon Dioxide Anion Gap BUN Creatinine Creat Clearance w eGFR POC Glucometer Random Glucose Lactic Acid Calcium Total Bilirubin AST ALT Alkaline Phosphatase Troponin I 37.60 H* 34.40 H* Total Protein Albumin Urine Color Urine Appearance Urine pH Ur Specific [place] Urine Protein Urine Glucose (UA) Urine Ketones Urine Blood Urine Nitrite Urine Bilirubin Urine Urobilinogen Ur Leukocyte Esterase Urine WBC (Auto) Urine RBC (Auto) Ur Epithelial Cells Urine Bacteria Urine Mucus Influenza A (Rapid) Influenza B (Rapid) 08/18/18 06:27 WBC RBC Hgb Hct MCV MCH MCHC RDW Plt Count MPV Absolute Neuts (auto) Neutrophils % Lymphocytes % Monocytes % Eosinophils % Basophils % Nucleated RBC % PT with INR INR PTT (Actin FS) VBG pH POC VBG pCO2 POC VBG pO2 Mixed VBG HCO3 Sodium Potassium Chloride Carbon Dioxide Anion Gap BUN Creatinine Creat Clearance w eGFR POC Glucometer [id number] Random Glucose Lactic Acid Calcium Total Bilirubin AST ALT Alkaline Phosphatase Troponin I Total Protein Albumin Urine Color Urine Appearance Urine pH Ur Specific [place] Urine Protein Urine Glucose (UA) Urine Ketones Urine Blood Urine Nitrite Urine Bilirubin Urine Urobilinogen Ur Leukocyte Esterase Urine WBC (Auto) Urine RBC (Auto) Ur Epithelial Cells Urine Bacteria Urine Mucus Influenza A (Rapid) Influenza B (Rapid) Active Medications Generic Name Dose Route Start Last Admin Trade Name Freq PRN Reason Stop Dose Admin Acetaminophen 650 mg 08/17/18 18:08 Tylenol - PO Q4H PRN FEVER Acetaminophen 1,000 mg 08/17/18 19:32 08/18/18 04:45 Ofirmev Injection - IVPB 1,000 mg Q6H PRN Administration PAIN LEVEL 1-5 Aspirin 81 mg 08/18/18 10:00 Asa - PO DAILY CRIS Atorvastatin Calcium 80 mg 08/17/18 22:00 08/17/18 22:04 Lipitor - PO 80 mg HS CRIS Administration Chlorhexidine Gluconate 1 applic 08/17/18 22:00 08/18/18 02:29 Hibiclens For Decolonization - TP 1 applic HS CRIS Administration Clopidogrel Bisulfate 75 mg 08/18/18 10:00 Plavix - PO DAILY CRIS Heparin Sodium (Porcine) 1,000 unit 08/17/18 18:13 Heparin - IVPUSH PRN PRN Heparin Heparin Sodium (Porcine) 5,000 unit 08/17/18 18:13 08/18/18 02:35 Heparin - IVPUSH 5,000 unit PRN PRN Administration Heparin Lactated Ringer's 1,000 ml in 1,000 mls @ 100 mls/hr 08/17/18 18:00 08/17/18 21:00 Lactated Ringers Solution IV 100 mls/hr ASDIR CRIS Administration Heparin Sodium/Dextrose 25,000 units in 500 mls @ 20 mls/hr 08/17/18 18:30 02:35 Heparin Infusion - IVPB 1,150 units/hr TITR CRIS 23 mls/hr Titration Protocol 1,000 UNITS/HR Meropenem 500 mg/ Dextrose 100 mls @ 200 mls/hr 08/17/18 18:45 08/18/18 06:40 IVPB 200 mls/hr Q12H CRIS Administration Insulin Aspart 1 vial 08/17/18 22:00 08/18/18 06:37 Novolog Vial Sliding Scale - SQ Not Given ACHS CRIS Protocol Mupirocin 1 applic 08/17/18 22:00 08/18/18 00:00 Bactroban Ointment (For Decolonization) - NS 08/22/18 21:59 1 units BID CRIS Administration [id number] Ethyl Esters 2 gm 08/17/18 22:00 08/17/18 22:03 Lovaza - PO 2 gm BID CRIS Administration Ranitidine HCl 150 mg 08/17/18 22:00 08/17/18 22:04 Zantac - PO 150 mg BID CRIS Administration Ranolazine 500 mg 08/17/18 22:00 08/17/18 22:04 Ranexa - PO 500 mg BID CRIS Administration ASSESSMENT/PLAN: 57 y/o M w/ PMHx IDDM (on insulin pump), HTN, HLD, CAD s/p CABG and s/p AICD, CHF, Aortic stenosis, CKD, p/w fever, rigors, malaise x 1 day, admitted to ICU for NSTEMI and sepsis. #CV -received ASA in ED, cont ASA/Plavix -cardiology consulted, Pt's regular medical van driver is Dr. Mullen -started on heparin gtt yesterday per Dr. Jensen -no signs of fluid overload on PE -repeat echo -fluid bolus to correct hypotension -patient agrees to central line placement under ultrasound guidance if necessary for pressure support -hold anti-hypertensives -trend troponins #ID -empiric vanc/zosyn given in ED -ID consulted and case discussed -avoid nephrotoxic ABx -cont meropenem as per ID -Pt's regional economist consulted, Dr. Harley Hall #pulmonary -sleep apnea screening #nephrology -Cr 4.3 above CKD baseline -consulted patient's glass frame fitter, Dr. Guevara -LR @ 100 -avoid nephrotoxic agents #endocrinology - to provide home insulin pump, otherwise cont BGM ACHS and SSI #FEN -Lactated Ringers at 100cc/hr, further boluses PRN -monitor and correct electrolytes -diabetic diet #PPx -DVT: heparin gtt -GI: not indicated #code -full #dispo -cont to monitor in ICU Visit type - Emergency Visit Emergency Visit: No - New Patient This patient is new to me today: No - Critical Care Critical Care patient: Yes Total Critical Care Time (in minutes): 40 Critical Care Statement: The care of this patient involved high complexity decision making to prevent further life threatening deterioration of the patient 's condition and/or to evaluate & treat vital organ system(s) failure or risk of failure.
[2018-08-18 08:45] LABS: INR 1.23 (0.83-1.09); PROTHROMBIN TIME (PATIENT) 14.6 SEC (9.7-13.0)
[2018-08-18 08:47] LABS: ACTIVATED PTT 47.3 SECONDS (25.2-36.5)
--- NOTE | 2018-08-18 09:27 | PN ---
Progress Note (short form) - Note Progress Note: ID Consult dictated Septic shock, likely secondary to skin source Cellulitis L 2nd toe/ L LE Thrombocytopenia secondary to sepsis Acute on chronic renal failure [place] Diabetes mellitus Await cultures Continue empiric vancomycin/ meropenem adjusted for renal failure pending c/s ICU monitoring Critical care time 45min
--- NOTE | 2018-08-18 09:33 | CON.CARD ---
Consult Consult Specialty:: Cardiology Referred by:: Dr. Levy Reason for Consultation:: Cardiac evaluation - History of Present Illness History of Present Illness: Patient is a 57 year old male well known to our service (sees Dr. Bridgett Mullen) with underlying history of CAD, [place], s/p CABG, PCI/stent, angina pectoris, ICD implant (2007), HTN, hypercholesterolemia, Insulin requiring DM, gout, non obstructing nephrolithiasis who presents with shivering and shaking chills. He had his toenail clipped recently and it has been red since. He complained of dizziness and shortness of breath. He was admitted also with elevated troponin to 34. He denied chest pain or palpitations. He denied paroxysmal nocturnal dyspnea or orthopnea. He denied nausea, vomiting, diarrhea or abdominal pain. He denied headache. Currently, he is in ICU and appears comfortable and feels better than yesterday. 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 History of Recent Travel: No Home Medications - Allergies Allergies/Adverse Reactions: Allergies Allergy/AdvReac Type Severity Reaction Status Date / Time No Known Allergies Allergy Verified 08/17/18 13:51 - Home Medications Home Medications: Ambulatory Orders Ranolazine [Ranexa] 500 mg PO BID 07/13/13 Ranitidine [Zantac -] 150 mg PO BID 06/19/17 Clonidine Patch [Catapres Tts Patch -] 0.3 mg TD WEEKLY 06/21/17 Aspirin [ASA -] 81 mg PO DAILY 09/28/17 Nitroglycerin [Nitrostat] 0.4 mg SL PRN PRN 09/28/17 Torsemide 1 tab PO DAILY 09/29/17 Carvedilol [Coreg -] 25 mg PO BID #60 tablet 09/30/17 Atorvastatin Ca [Lipitor] 80 mg PO HS 06/01/18 Ergocalciferol (Vitamin D2) [Vitamin D2] 50,000 unit PO WEEKLY 06/01/18 Insulin Lispro [Humalog] 0 unit SQ ASDIR PRN 06/01/18 [place]-3 Fatty Acids [[place]-3] 1,000 mg PO BID 06/01/18 Sacubitril/Valsartan [Entresto 49 mg-51 mg Tablet] 1 each PO BID 06/01/18 Clopidogrel Bisulfate [Plavix -] 75 mg PO DAILY 30 Days #0 tab 06/08/18 Family Disease History - Family Disease History Family Disease History: Diabetes: Mother (), Brother, Heart Disease: Mother, Brother Review of Systems - Review of Systems Constitutional: reports: Chills. denies: Fever Cardiovascular: reports: Shortness of Breath. denies: Chest Pain, Palpitations Respiratory: reports: SOB, SOB on Exertion. denies: Cough, Hemoptysis, Orthopnea, PND Gastrointestinal: denies: Abdominal Pain, Constipation, Diarrhea, Melena, Nausea , Rectal Bleeding, Vomiting Genitourinary: denies: Dysuria, Hematuria Musculoskeletal: denies: Back Pain, Joint Pain Integumentary: reports: Change in Color, Erythema Neurological: reports: Dizziness. denies: Headache, Seizure, Syncope Vital Signs: Vital Signs Temperature 99.6 F 08/18/18 06:00 Pulse Rate 75 08/18/18 06:00 Respiratory Rate 20 08/18/18 06:00 Blood Pressure 123/58 L 08/18/18 06:00 O2 Sat by Pulse Oximetry (%) 99 08/17/18 20:57 Eyes: Yes: PERRL HENT: Yes: Atraumatic Neck: Yes: Supple Respiratory: Yes: CTA Bilaterally Gastrointestinal: Yes: Normal Bowel Sounds, Soft, Abdomen, Obese. No: Tenderness Cardiovascular: Yes: Regular Rate and Rhythm JVD: No Carotid Bruit: No PMI: Non-Displaced Heart Sounds: Yes: S1, S2. No: Gallop Murmur: Yes: Systolic Murmur, Grade 1 Edema: No - Other Data Labs, Other Data: CBC, BMP 08/18/18 08:05 INR, PTT INR 1.23 (0.83-1.09) H 08/18/18 08:05 Troponin, BNP 08/17/18 08/17/18 08/18/18 14:18 20:20 01:30 Troponin I 34.30 H* 37.60 H* 34.40 H* 08/18/18 08:05 Troponin I 26.20 H* Laboratory Results - last 24 hr 08/17/18 08/17/18 08/17/18 14:41 16:13 20:20 WBC RBC Hgb Hct MCV MCH MCHC RDW Plt Count MPV Absolute Neuts (auto) Neutrophils % Lymphocytes % Monocytes % Eosinophils % Basophils % Nucleated RBC % PT with INR INR PTT (Actin FS) VBG pH 7.39 POC VBG pCO2 36.6 L POC VBG pO2 33.8 Mixed VBG HCO3 22.1 Sodium Potassium Chloride Carbon Dioxide Anion Gap BUN Creatinine Creat Clearance w eGFR POC Glucometer Random Glucose Lactic Acid 1.1 Calcium Phosphorus Magnesium Total Bilirubin AST ALT Alkaline Phosphatase Troponin I Total Protein Albumin Urine Color Yellow Urine Appearance Clear Urine pH 5.0 Ur Specific [place] 1.014 Urine Protein 2+ H Urine Glucose (UA) Negative Urine Ketones Negative Urine Blood 1+ H Urine Nitrite Negative Urine Bilirubin Negative Urine Urobilinogen Negative Ur Leukocyte Esterase Negative Urine WBC (Auto) <1 Urine RBC (Auto) 3 Ur Epithelial Cells Rare Urine Bacteria Rare Urine Mucus Rare Random Vancomycin 08/18/18 08/18/18 08/18/18 06:27 08:05 08:05 WBC 5.4 RBC 2.53 L Hgb 8.1 L Hct 22.9 L D MCV 90.6 MCH 32.0 MCHC 35.3 RDW 15.6 Plt Count 130 L D MPV 6.8 L Absolute Neuts (auto) 4.5 Neutrophils % 83.6 H Lymphocytes % 7.6 L D Monocytes % 8.5 Eosinophils % 0.0 Basophils % 0.3 Nucleated RBC % 0 PT with INR INR PTT (Actin FS) VBG pH POC VBG pCO2 POC VBG pO2 Mixed VBG HCO3 Sodium Potassium Chloride Carbon Dioxide Anion Gap BUN Creatinine Creat Clearance w eGFR POC Glucometer [phone] Random Glucose Lactic Acid Calcium Phosphorus Magnesium Total Bilirubin AST ALT Alkaline Phosphatase Troponin I Total Protein Albumin Urine Color Urine Appearance Urine pH Ur Specific [place] Urine Protein Urine Glucose (UA) Urine Ketones Urine Blood Urine Nitrite Urine Bilirubin Urine Urobilinogen Ur Leukocyte Esterase Urine WBC (Auto) Urine RBC (Auto) Ur Epithelial Cells Urine Bacteria Urine Mucus Random Vancomycin 7.7 L 08/18/18 08/18/18 08/18/18 08:05 08:05 08:05 WBC RBC Hgb Hct MCV MCH MCHC RDW Plt Count MPV Absolute Neuts (auto) Neutrophils % Lymphocytes % Monocytes % Eosinophils % Basophils % Nucleated RBC % PT with INR 14.60 H INR 1.23 H PTT (Actin FS) 47.3 H VBG pH POC VBG pCO2 POC VBG pO2 Mixed VBG HCO3 Sodium 138 Potassium 4.2 Chloride 108 H Carbon Dioxide 21 Anion Gap 9 BUN 81 H Creatinine 4.3 H Creat Clearance w eGFR 14.36 POC Glucometer Random Glucose 189 H Lactic Acid Calcium 6.9 L* Phosphorus 4.1 Magnesium 1.1 L Total Bilirubin 0.6 AST 100 H ALT 30 Alkaline Phosphatase 69 Troponin I 26.20 H* Total Protein 5.6 L Albumin 2.4 L Urine Color Urine Appearance Urine pH Ur Specific [place] Urine Protein Urine Glucose (UA) Urine Ketones Urine Blood Urine Nitrite Urine Bilirubin Urine Urobilinogen Ur Leukocyte Esterase Urine WBC (Auto) Urine RBC (Auto) Ur Epithelial Cells Urine Bacteria Urine Mucus Random Vancomycin Echo: Report Reviewed (Normal LV systolic function, mild LAD, RAD, trace HI, TR , moderate aortic valve thickening, moderate aortic valve sclerosis) Imaging - Results Chest X-ray: Report Reviewed (Unremarkable) EKG: Report Reviewed Problem List - Problems (1) Sepsis Code(s): A41.9 - SEPSIS, UNSPECIFIED ORGANISM (2) Acute on chronic kidney failure Code(s): N17.9 - ACUTE KIDNEY FAILURE, UNSPECIFIED; N18.9 - CHRONIC KIDNEY DISEASE, UNSPECIFIED Qualifiers: Acute renal failure type: unspecified Chronic kidney disease stage: unspecified stage Qualified Code(s): N17.9 - Acute kidney failure, unspecified ; N18.9 - Chronic kidney disease, unspecified (3) Acute on chronic systolic (congestive) heart failure Code(s): I50.23 - ACUTE ON CHRONIC SYSTOLIC (CONGESTIVE) HEART FAILURE (4) Anemia Code(s): D64.9 - ANEMIA, UNSPECIFIED Qualifiers: Anemia type: unspecified type Qualified Code(s): D64.9 - Anemia, unspecified (5) Aortic valve stenosis Code(s): I35.0 - NONRHEUMATIC AORTIC (VALVE) STENOSIS Qualifiers: Cardiac valve disease etiology: nonrheumatic Qualified Code(s): I35.0 - Nonrheumatic aortic (valve) stenosis (6) CAD (coronary artery disease) Code(s): I25.10 - ATHSCL HEART DISEASE OF [place] CORONARY ARTERY W/O ANG PCTRS Qualifiers: Coronary Disease-Associated Artery/Lesion type: [place] artery [place] vs. transplanted heart: [place] heart Associated angina: without angina Qualified Code(s): I25.10 - Atherosclerotic heart disease of [place] coronary artery without angina pectoris (7) CKD stage 4 due to type 2 diabetes mellitus Code(s): E11.22 - TYPE 2 DIABETES MELLITUS W DIABETIC CHRONIC KIDNEY DISEASE; N18.4 - CHRONIC KIDNEY DISEASE, STAGE 4 (SEVERE) (8) Demand ischemia Code(s): I24.8 - OTHER FORMS OF ACUTE ISCHEMIC HEART DISEASE (9) Diabetes mellitus Code(s): E11.9 - TYPE 2 DIABETES MELLITUS WITHOUT COMPLICATIONS Qualifiers: Diabetes mellitus type: type 2 Diabetes mellitus complication status: without complication (10) Elevated troponin Code(s): R79.89 - OTHER SPECIFIED ABNORMAL FINDINGS OF BLOOD CHEMISTRY (11) HLD (hyperlipidemia) Code(s): E78.5 - HYPERLIPIDEMIA, UNSPECIFIED Qualifiers: Hyperlipidemia type: pure hypercholesterolemia Qualified Code(s): E78.00 - Pure hypercholesterolemia, unspecified (12) HTN (hypertension) Code(s): I10 - ESSENTIAL (PRIMARY) HYPERTENSION Qualifiers: Hypertension type: essential hypertension Qualified Code(s): I10 - Essential (primary) hypertension (13) History of coronary artery stent placement Code(s): Z95.5 - PRESENCE OF CORONARY ANGIOPLASTY IMPLANT AND GRAFT (14) Hx of CABG Code(s): Z95.1 - PRESENCE OF AORTOCORONARY BYPASS GRAFT (15) ICD (implantable cardioverter-defibrillator) in place Code(s): Z95.810 - PRESENCE OF AUTOMATIC (IMPLANTABLE) CARDIAC DEFIBRILLATOR (16) Nephrolithiasis Code(s): N20.0 - CALCULUS OF KIDNEY (17) Sleep apnea Code(s): G47.30 - SLEEP APNEA, UNSPECIFIED Qualifiers: Sleep apnea type: obstructive Qualified Code(s): G47.33 - Obstructive sleep apnea (adult) (pediatric) (18) Systolic dysfunction without heart failure Code(s): I51.9 - HEART DISEASE, UNSPECIFIED Assessment/Plan 1. Elevated troponin likely represents demand ischemia with underlying history of systolic LV dysfunction and CKD 2. CKD stage 4 with diabetic nephropathy 3. LV systolic dysfunction, euvolemic 4. Aortic valve disease/ 5. CAD, history of [place], s/p CABG, s/p PCI/stent, angina pectoris 6. HTN 7. Hypercholesterolemia 8. Post ICD implant for primary prophylaxis 9. Anemia 10. Gout 11. OSAS on CPAP 12. Clinical presentation suggests sepsis, source unclear PLAN: 1. Empiric antibiotics coverage 2. Heparin was started and can be continued for 24 hours and then if clinically stable and troponin trending down, it may be stopped 3. Continue ASA and Plavix 4. Continue Ranexa 5. Resume Carvedilol 25 mg BID 6. Resume Entresto 49/51 mg BID if clinically feasible and renal function stabilized 7. Continue Lipitor 8. Clonidine 9. Echocardiography report noted. Will review images 10. Continue ICU monitoring Guarded Paras Jensen MD
[2018-08-18 09:34] LABS: ALBUMIN 2.4 g/dl (3.4-5.0); ALK PHOS 69 U/L (45-117); ANION GAP 9 MMOL/L (8-16); BILIRUBIN,TOTAL 0.6 mg/dL (0.2-1); BLOOD UREA NITROGEN 81 mg/dL (7-18); CHLORIDE 108 mmol/L (98-107); CO2 21 mmol/L (21-32); CREATININE 4.3 mg/dL (0.55-1.3); GLUCOSE,RANDOM 189 mg/dL (74-106); MAGNESIUM 1.1 mg/dL (1.8-2.4); PHOSPHOROUS 4.1 mg/dL (2.5-4.9); POTASSIUM 4.2 mmol/L (3.5-5.1); SGOT/AST 100 U/L (15-37); SGPT/ALT 30 U/L (13-61); SODIUM 138 mmol/L (136-145); TOT PROT 5.6 g/dl (6.4-8.2)
[2018-08-18 09:36] LABS: CALCIUM 6.9 mg/dL (8.5-10.1)
[2018-08-18] MEDS: RANOLAZINE E.R. 500 MG TABLET (FP) PO SCH ×2 (09:36→21:08)
[2018-08-18] MEDS: OMEGA-3 ACID ETHYL ESTERS (FATTY-ACIDS) 1 GM CAPSULE (FP) PO SCH ×2 (09:36→21:08)
[2018-08-18] MEDS: RANITIDINE HCL 150 MG TABLET (FP) PO SCH ×2 (09:36→21:08)
[2018-08-18] MEDS: CLOPIDOGREL BISULFATE 75 MG TABLET (FP) PO SCH (09:36)
[2018-08-18] MEDS: ASPIRIN 81 MG CHEWABLE TABLETS PO SCH (09:36)
[2018-08-18] MEDS: MUPIROCIN 2% TOPICAL OINTMENT FOR DECOLONIZATION NS SCH ×3 (09:37→21:09)
[2018-08-18] MEDS ORDERED: cloNIDine-TTS 0.3 MG /24 HRS PATCH.TDWK TD SCH (10:00)
--- NOTE | 2018-08-18 10:33 | PN ---
Teaching Attending Note Name of Resident: Ramesh Rm ATTENDING PHYSICIAN STATEMENT I saw and evaluated the patient. I reviewed the resident's note and discussed the case with the resident. I agree with the resident's findings and plan as documented. SUBJECTIVE: Patient seen and examined in the ICU. Awake and alert. Noted rise in troponin. Hemodynamics improving with volume resuscitation. OBJECTIVE: Intake & Output 08/15/18 08/16/18 08/17/18 08/18/18 23:59 23:59 23:59 23:59 Intake Total 2200 1555 Output Total 200 700 Balance 2000 855 Weight 288 lb 288 lb 12.889 oz Last Vital Signs Temp Pulse Resp BP Pulse Ox 99.6 F 72 20 146/58 L 99 08/18/18 06:00 08/18/18 08:00 08/18/18 08:00 08/18/18 08:00 08/17/18 20:57 Active Medications Acetaminophen (Tylenol -) 650 mg PO Q4H PRN PRN Reason: FEVER Acetaminophen (Ofirmev Injection -) 1,000 mg IVPB Q6H PRN PRN Reason: PAIN LEVEL 1-5 Last Admin: 08/18/18 04:45 Dose: 1,000 mg Aspirin (Asa -) 81 mg PO DAILY [facility] Last Admin: 08/18/18 09:36 Dose: 81 mg Atorvastatin Calcium (Lipitor -) 80 mg PO HS [facility] Last Admin: 08/17/18 22:04 Dose: 80 mg Chlorhexidine Gluconate (Hibiclens For Decolonization -) 1 applic TP HS [facility] Last Admin: 08/18/18 02:29 Dose: 1 applic Clonidine HCl (Catapres Tts Patch -) 0.3 mg TD Q7D [facility] Clopidogrel Bisulfate (Plavix -) 75 mg PO DAILY [facility] Last Admin: 08/18/18 09:36 Dose: 75 mg Heparin Sodium (Porcine) (Heparin -) 1,000 unit IVPUSH PRN PRN PRN Reason: Heparin Last Admin: 08/18/18 09:36 Dose: 1,000 unit Heparin Sodium (Porcine) (Heparin -) 5,000 unit IVPUSH PRN PRN PRN Reason: Heparin Last Admin: 08/18/18 02:35 Dose: 5,000 unit Lactated Ringer's (Lactated Ringers Solution) 1,000 ml in 1,000 mls @ 100 mls/ hr IV ASDIR [facility] Last Admin: 08/17/18 21:00 Dose: 100 mls/hr Heparin Sodium/Dextrose (Heparin Infusion -) 25,000 units in 500 mls @ 20 mls/ hr IVPB TITR [facility]; Protocol Last Titration: 08/18/18 09:33 Dose: 1,250 units/hr, 25 mls/hr Meropenem 500 mg/ Dextrose 100 mls @ 200 mls/hr IVPB Q12H [facility] Last Admin: 08/18/18 06:40 Dose: 200 mls/hr Vancomycin HCl 1,500 mg/ (Dextrose) 500 mls @ 250 mls/hr IVPB ONCE ONE; Protocol Stop: 08/18/18 12:59 Insulin Aspart (Novolog Vial Sliding Scale -) 1 vial SQ ACHS [facility]; Protocol Last Admin: 08/18/18 06:37 Dose: Not Given Mupirocin (Bactroban Ointment (For Decolonization) -) 1 applic NS BID [facility] Stop: 08/22/18 21:59 Last Admin: 08/18/18 09:37 Dose: 1 unit [id number] Ethyl Esters (Lovaza -) 2 gm PO BID [facility] Last Admin: 08/18/18 09:36 Dose: 2 gm Ranitidine HCl (Zantac -) 150 mg PO BID [facility] Last Admin: 08/18/18 09:36 Dose: 150 mg Ranolazine (Ranexa -) 500 mg PO BID [facility] Last Admin: 08/18/18 09:36 Dose: 500 mg GENERAL: A&Ox3, NAD HEAD: NC/AT EYES: PERRLA, EOMI EARS, NOSE, THROAT: MMM NECK: Normal range of motion, supple without lymphadenopathy, JVD, or masses. LUNGS: CTA HEART: Paced rhythm, no m/r/g ABDOMEN: (+) BS, soft, NT, ND UPPER EXTREMITIES: 2+ pulses, warm, well-perfused. No cyanosis. No clubbing. Cap refill <2 seconds. No peripheral edema. LOWER EXTREMITIES: 1+ pulses, warm, well-perfused. No calf tenderness. No peripheral edema. Erythematous ulcer of left second toe, infected-appearing NEUROLOGICAL: Non-focal PSYCHIATRIC: Cooperative. Good eye contact. Appropriate mood and affect. SKIN: Warm, dry, normal turgor Laboratory Results - last 24 hr 08/17/18 08/17/18 08/17/18 14:18 14:18 14:18 WBC 7.4 RBC 3.17 L Hgb 9.6 L Hct 28.9 L D MCV 91.2 MCH 30.3 MCHC 33.3 RDW 15.4 Plt Count 172 MPV 7.2 L D Absolute Neuts (auto) 6.4 Neutrophils % 87.1 H D Lymphocytes % 4.8 L D Monocytes % 7.6 Eosinophils % 0.0 D Basophils % 0.5 Nucleated RBC % 0 PT with INR 14.40 H INR 1.22 H PTT (Actin FS) 29.5 VBG pH POC VBG pCO2 POC VBG pO2 Mixed VBG HCO3 Sodium 138 Potassium 4.9 Chloride 106 Carbon Dioxide 22 Anion Gap 10 BUN 88 H Creatinine 4.4 H Creat Clearance w eGFR 13.98 POC Glucometer Random Glucose 155 H Lactic Acid Calcium 7.7 L Phosphorus Magnesium Total Bilirubin 0.6 AST 107 H ALT 25 Alkaline Phosphatase 89 Troponin I Total Protein 6.8 Albumin 2.9 L Urine Color Urine Appearance Urine pH Ur Specific [place] Urine Protein Urine Glucose (UA) Urine Ketones Urine Blood Urine Nitrite Urine Bilirubin Urine Urobilinogen Ur Leukocyte Esterase Urine WBC (Auto) Urine RBC (Auto) Ur Epithelial Cells Urine Bacteria Urine Mucus Random Vancomycin Influenza A (Rapid) Influenza B (Rapid) 08/17/18 08/17/18 08/17/18 14:18 14:18 14:18 WBC RBC Hgb Hct MCV MCH MCHC RDW Plt Count MPV Absolute Neuts (auto) Neutrophils % Lymphocytes % Monocytes % Eosinophils % Basophils % Nucleated RBC % PT with INR INR PTT (Actin FS) VBG pH POC VBG pCO2 POC VBG pO2 Mixed VBG HCO3 Sodium Potassium Chloride Carbon Dioxide Anion Gap BUN Creatinine Creat Clearance w eGFR POC Glucometer Random Glucose Lactic Acid 1.9 Calcium Phosphorus Magnesium Total Bilirubin AST ALT Alkaline Phosphatase Troponin I 34.30 H* Total Protein Albumin Urine Color Urine Appearance Urine pH Ur Specific [place] Urine Protein Urine Glucose (UA) Urine Ketones Urine Blood Urine Nitrite Urine Bilirubin Urine Urobilinogen Ur Leukocyte Esterase Urine WBC (Auto) Urine RBC (Auto) Ur Epithelial Cells Urine Bacteria Urine Mucus Random Vancomycin Influenza A (Rapid) Negative Influenza B (Rapid) Negative 08/17/18 08/17/18 08/17/18 14:41 16:13 20:20 WBC RBC Hgb Hct MCV MCH MCHC RDW Plt Count MPV Absolute Neuts (auto) Neutrophils % Lymphocytes % Monocytes % Eosinophils % Basophils % Nucleated RBC % PT with INR INR PTT (Actin FS) VBG pH 7.39 POC VBG pCO2 36.6 L POC VBG pO2 33.8 Mixed VBG HCO3 22.1 Sodium Potassium Chloride Carbon Dioxide Anion Gap BUN Creatinine Creat Clearance w eGFR POC Glucometer Random Glucose Lactic Acid 1.1 Calcium Phosphorus Magnesium Total Bilirubin AST ALT Alkaline Phosphatase Troponin I Total Protein Albumin Urine Color Yellow Urine Appearance Clear Urine pH 5.0 Ur Specific [place] 1.014 Urine Protein 2+ H Urine Glucose (UA) Negative Urine Ketones Negative Urine Blood 1+ H Urine Nitrite Negative Urine Bilirubin Negative Urine Urobilinogen Negative Ur Leukocyte Esterase Negative Urine WBC (Auto) <1 Urine RBC (Auto) 3 Ur Epithelial Cells Rare Urine Bacteria Rare Urine Mucus Rare Random Vancomycin Influenza A (Rapid) Influenza B (Rapid) 08/17/18 08/18/18 08/18/18 20:20 01:30 01:30 WBC RBC Hgb Hct MCV MCH MCHC RDW Plt Count MPV Absolute Neuts (auto) Neutrophils % Lymphocytes % Monocytes % Eosinophils % Basophils % Nucleated RBC % PT with INR INR PTT (Actin FS) 37.3 H VBG pH POC VBG pCO2 POC VBG pO2 Mixed VBG HCO3 Sodium Potassium Chloride Carbon Dioxide Anion Gap BUN Creatinine Creat Clearance w eGFR POC Glucometer Random Glucose Lactic Acid Calcium Phosphorus Magnesium Total Bilirubin AST ALT Alkaline Phosphatase Troponin I 37.60 H* 34.40 H* Total Protein Albumin Urine Color Urine Appearance Urine pH Ur Specific [place] Urine Protein Urine Glucose (UA) Urine Ketones Urine Blood Urine Nitrite Urine Bilirubin Urine Urobilinogen Ur Leukocyte Esterase Urine WBC (Auto) Urine RBC (Auto) Ur Epithelial Cells Urine Bacteria Urine Mucus Random Vancomycin Influenza A (Rapid) Influenza B (Rapid) 08/18/18 08/18/18 08/18/18 06:27 08:05 08:05 WBC 5.4 RBC 2.53 L Hgb 8.1 L Hct 22.9 L D MCV 90.6 MCH 32.0 MCHC 35.3 RDW 15.6 Plt Count 130 L D MPV 6.8 L Absolute Neuts (auto) 4.5 Neutrophils % 83.6 H Lymphocytes % 7.6 L D Monocytes % 8.5 Eosinophils % 0.0 Basophils % 0.3 Nucleated RBC % 0 PT with INR INR PTT (Actin FS) VBG pH POC VBG pCO2 POC VBG pO2 Mixed VBG HCO3 Sodium Potassium Chloride Carbon Dioxide Anion Gap BUN Creatinine Creat Clearance w eGFR POC Glucometer [phone] Random Glucose Lactic Acid Calcium Phosphorus Magnesium Total Bilirubin AST ALT Alkaline Phosphatase Troponin I Total Protein Albumin Urine Color Urine Appearance Urine pH Ur Specific [place] Urine Protein Urine Glucose (UA) Urine Ketones Urine Blood Urine Nitrite Urine Bilirubin Urine Urobilinogen Ur Leukocyte Esterase Urine WBC (Auto) Urine RBC (Auto) Ur Epithelial Cells Urine Bacteria Urine Mucus Random Vancomycin 7.7 L Influenza A (Rapid) Influenza B (Rapid) 08/18/18 08/18/18 08/18/18 08:05 08:05 08:05 WBC RBC Hgb Hct MCV MCH MCHC RDW Plt Count MPV Absolute Neuts (auto) Neutrophils % Lymphocytes % Monocytes % Eosinophils % Basophils % Nucleated RBC % PT with INR 14.60 H INR 1.23 H PTT (Actin FS) 47.3 H VBG pH POC VBG pCO2 POC VBG pO2 Mixed VBG HCO3 Sodium 138 Potassium 4.2 Chloride 108 H Carbon Dioxide 21 Anion Gap 9 BUN 81 H Creatinine 4.3 H Creat Clearance w eGFR 14.36 POC Glucometer Random Glucose 189 H Lactic Acid Calcium 6.9 L* Phosphorus 4.1 Magnesium 1.1 L Total Bilirubin 0.6 AST 100 H ALT 30 Alkaline Phosphatase 69 Troponin I 26.20 H* Total Protein 5.6 L Albumin 2.4 L Urine Color Urine Appearance Urine pH Ur Specific [place] Urine Protein Urine Glucose (UA) Urine Ketones Urine Blood Urine Nitrite Urine Bilirubin Urine Urobilinogen Ur Leukocyte Esterase Urine WBC (Auto) Urine RBC (Auto) Ur Epithelial Cells Urine Bacteria Urine Mucus Random Vancomycin Influenza A (Rapid) Influenza B (Rapid) ASSESSMENT/PLAN: Sepsis due to suspected skin infection IDDM on insulin pump HTN HLD CAD S/P CABG S/P AICD CHF Aortic stenosis CKD NSTEMI Probable Sleep Disordered Breathing ABX per ID O2 as needed Follow cultures Continue volume resuscitation ECHO Hold anti-hypertensive agents Heparin drip Glycemic control ICU monitoring Dr López Critical care time spent in reviewing chart, evaluating patient and formulating plan - 36 minutes
--- NOTE | 2018-08-18 10:35 | ECHO ---
Version: 1 Name: MIRI ARMENDARIZ Exam: Adult Echocardiogram Study Date: 08/18/2018, 8:45 AM Age: 57 Years MMode/2D Measurements & Calculations IVSd: 1.11 cm LVIDs: 3.9 cm LVIDd: 5.6 cm LVPWd: 1.17 cm LVOT diam: 2.01 cm Ao root diam: 3.0 cm LA dimension: 4.3 cm Doppler Measurements & Calculations MV E max tanner: 97.0 cm/sec Med E/e': 18.2 MV A max tanner: 57.2 cm/sec Med Peak E' Tanner: 5.3 cm/sec MV E/A: 1.69 Lat E/e': 14.6 Lat Peak E' Tanner: 6.6 cm/sec TR max tanner: 320.8 cm/sec TR max P.2 mmHg Procedure A two-dimensional transthoracic echocardiogram with color flow and Doppler was performed. The study was technically difficult with many images being suboptimal in quality. The study was non-diagnostic in quality. No definitive statements could be made about this echo due to extremely poor acoustic windows. Left Ventricle The left ventricular size, thickness and function are normal. The left ventricle is not well visuali zed. The left ventricular ejection fraction is normal. Regional wall motion abnormalities cannot be excluded due to limited visualization. Right Ventricle The right ventricle is not well visualized. Atria The left atrium is mildly dilated. The right atrium is mildly dilated. Mitral Valve The mitral valve is not well visualized. Tricuspid Valve The tricuspid valve is not well visualized. There is no tricuspid stenosis. There is trace tricuspid regurgitation. Right ventricular systolic pressure is elevated at 40-50mmHg. Aortic Valve The aortic valve is not well visualized. There is moderate aortic valve thickening. There is moderat e aortic sclerosis.;. Hemodynamically significant valvular aortic stenosis cannot be excluded. No aortic regu rgitation is present. Pulmonic Valve The pulmonic valve is not well visualized. There is no pulmonic valvular stenosis. Trace to mild pul sharon valvular regurgitation. Great Vessels The aortic root is normal size. Pericardium/Pleura There is no pericardial effusion. Summary Statements The left ventricular size, thickness and function are normal The left ventricular ejection fraction is normal. The left atrium is mildly dilated. The right atrium is mildly dilated. The study was technically difficult with many images being suboptimal in quality. The left ventricle is not well visualized. Regional wall motion abnormalities cannot be excluded due to limited visualization. The mitral valve is not well visualized. The pulmonic valve is not well visualized. Trace to mild pulmonic valvular regurgitation. There is trace tricuspid regurgitation. Right ventricular systolic pressure is elevated at 40-50mmHg. There is moderate aortic valve thickening. The aortic valve is not well visualized. There is moderate aortic sclerosis.; Hemodynamically significant valvular aortic stenosis cannot be excluded. The tricuspid valve is not well visualized. The study was non-diagnostic in quality. No definitive statements could be made about this echo due to extremely poor acoustic windows. MD Jovan Crane 08/18/2018, 10:35 AM Ordering Physician: YAQUELIN BUSH Performed By: Julienne Denney
--- NOTE | 2018-08-18 10:47 | CONS ---
DATE OF CONSULTATION: DATE OF DICTATION: 08/18/2018 INFECTIOUS DISEASE CONSULTATION The patient is a 57-year-old diabetic male who was evaluated for septic shock. The patient presented to the emergency room on August 17, 2018, with complaints of fevers, rigors, generalized arthralgias, myalgias, nausea, and vomiting. He states that the symptoms were abrupt in onset after consuming a meal. He presented to the emergency room where he was noted to be febrile to 101.6 and hypotensive with a blood pressure of 96/46. He was treated with IV fluids and empirically treated with vancomycin and Zosyn. He was noted to have cellulitis of the left second toe. Patient reports that approximately 2 weeks ago he had seen his order schedule clerk and had his toenails clipped. He had sustained a laceration to the left second toe. Over the past 3 to 4 days, he has had increasing pain and swelling of that toe. He denied any purulent drainage. His hospital course has been complicated by elevated cardiac enzymes. He is presently in the intensive care unit. He denies any chest pain, shortness of breath, cough, sputum production, hemoptysis. No complaints of dysuria or hematuria. No diarrhea. He denies prior history of foot infection or infected diabetic foot ulcers. No history of MRSA. He does have a history of chronic kidney disease. Patient reports receiving influenza vaccine this year. PAST MEDICAL HISTORY: Positive for insulin-dependent diabetes mellitus, hyperlipidemia, hypertension, coronary artery disease, chronic kidney disease, congestive heart failure, aortic stenosis. PAST SURGICAL HISTORY: Status post coronary artery bypass graft implanted defibrillator, insulin pump. No known allergies. MEDICATION: Ranexa, Zantac, Catapres, aspirin, nitroglycerine, Coreg, Lipitor, Humalog, Plavix. SOCIAL HISTORY: Lives at home in the community. He is a nonsmoker, nondrinker. SYSTEM REVIEW: Neurologic: No loss of consciousness, seizure activity, or focal weakness. Positive peripheral neuropathy. 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 Cardiac: As per HPI. Respiratory: As per HPI. Genitourinary: Negative dysuria or hematuria. Gastrointestinal: Positive for nausea, vomiting. No diarrhea. LABORATORY DATA: White count 5.4, and 83% neutrophils, 7 lymphocytes, 8 monocytes, hematocrit 22.9, platelet count 130. BUN 88, creatinine 4.4. Influenza swab negative. Blood cultures are pending. Urinalysis less than 1 white cell. PHYSICAL EXAMINATION: General: He is awake and alert, obese male, in no acute distress, breathing is nonlabored. Vital Signs: Temperature 99.6, T-max 101.6, blood pressure 123/58, pulse 75 regular, respirations 20 per minute. Eyes: Anicteric. Left cornea is opacified. Neck: Supple. Insulin pump present in the right deltoid area. Heart: Sounds S1, S2. Healed sternal wound. Lungs: Clear. Abdomen: Obese. Soft, nontender. Genitourinary: There is some blood noted at the urethral meatus. Extremities: 1+ edema. Examination of the left foot, there is diffuse swelling and erythema of the left second toe though no purulent drainage is noted. There is slight erythema and warmth of the distal left lower extremity. No lymphangitic streaking. IMPRESSION: 1. Septic shock likely secondary to skin source. 2. Cellulitis of the left toe/left lower extremity. 3. Thrombocytopenia secondary to sepsis. 4. Acute on chronic renal failure. 5. Myocardial infarction. 6. Diabetes mellitus. PLAN: Await sepsis workup. Continue empiric vancomycin and meropenem adjusted for renal failure pending cultures. Continue ICU monitoring. Critical care time spent 45 minutes. Thank you for the kind referral. JOSE EDUARDO BUTT M.D. [id number]
[2018-08-18] MEDS ORDERED: VANCOMYCIN 1,500 MG in DEXTROSE 5%-WATER - 500 ML IVPB ONE (11:00)
--- NOTE | 2018-08-18 11:01 | CONSULT ---
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 Pt reports good urine output and denies any dysuria or flank pain. No N/V/D. + Fevers in ER but now improved. No Abd pain. No confusion or lethargy. On heparin gtt as well at NS gtt. No recent contrast exposure or NSAID use. on IV abx. PMhx: as above Allergies: NKDA Family Hx: NC Social Hx: No T/A/D ROS: as per HPI, all other pertinent ros negative Home Medications Medication Instructions Recorded Ranolazine [Ranexa] 500 mg PO BID 07/13/13 Ranitidine [Zantac -] 150 mg PO BID 06/19/17 Clonidine Patch [Catapres Tts 0.3 mg TD WEEKLY 06/21/17 Patch -] Aspirin [ASA -] 81 mg PO DAILY 09/28/17 Nitroglycerin [Nitrostat] 0.4 mg SL PRN PRN 09/28/17 Torsemide 1 tab PO DAILY 09/29/17 Carvedilol [Coreg -] 25 mg PO BID #60 tablet 09/30/17 Atorvastatin Ca [Lipitor] 80 mg PO HS 06/01/18 Ergocalciferol (Vitamin D2) 50,000 unit PO WEEKLY 06/01/18 [Vitamin D2] Insulin Lispro [Humalog] 0 unit SQ ASDIR PRN 06/01/18 [place]-3 Fatty Acids [[place]-3] 1,000 mg PO BID 06/01/18 Sacubitril/Valsartan [Entresto 49 1 each PO BID 06/01/18 mg-51 mg Tablet] Clopidogrel Bisulfate [Plavix -] 75 mg PO DAILY 30 Days #0 tab 06/08/18 Vital Signs Temperature 98.8 F 08/18/18 10:00 Pulse Rate 82 08/18/18 10:00 Respiratory Rate 20 08/18/18 10:00 Blood Pressure 127/46 L 08/18/18 10:00 O2 Sat by Pulse Oximetry (%) 99 08/18/18 09:00 Intake & Output 08/15/18 08/16/18 08/17/18 08/18/18 23:59 23:59 23:59 23:59 Intake Total 2200 1555 Output Total 200 700 Balance 1999 855 Weight 130.635 kg 131 kg NAD awake and alert neck supple, no JVD RRR, no M/R Dec BS Soft Obese, NT/ND No bladder distension Trace to 1+ edema in LE CBC, BMP 08/18/18 08:05 08/18/18 08:05 Laboratory Tests 08/17/18 08/18/18 08/18/18 20:20 08:05 08:05 Creat Clearance w eGFR 14.36 Lactic Acid 1.1 Calcium 6.9 L* Phosphorus 4.1 Magnesium 1.1 L Troponin I 26.20 H* Albumin 2.4 L Current Medications Acetaminophen (Tylenol -) 650 mg PO Q4H PRN PRN Reason: FEVER Acetaminophen (Ofirmev Injection -) 1,000 mg IVPB Q6H PRN PRN Reason: PAIN LEVEL 1-5 Last Admin: 08/18/18 04:45 Dose: 1,000 mg Aspirin (Asa -) 81 mg PO DAILY [facility] Last Admin: 08/18/18 09:36 Dose: 81 mg Atorvastatin Calcium (Lipitor -) 80 mg PO HS [facility] Last Admin: 08/17/18 22:04 Dose: 80 mg Chlorhexidine Gluconate (Hibiclens For Decolonization -) 1 applic TP HS [facility] Last Admin: 08/18/18 02:29 Dose: 1 applic Clonidine HCl (Catapres Tts Patch -) 0.3 mg TD Q7D [facility] Clopidogrel Bisulfate (Plavix -) 75 mg PO DAILY [facility] Last Admin: 08/18/18 09:36 Dose: 75 mg Heparin Sodium (Porcine) (Heparin -) 1,000 unit IVPUSH PRN PRN PRN Reason: Heparin Last Admin: 08/18/18 09:36 Dose: 1,000 unit Heparin Sodium (Porcine) (Heparin -) 5,000 unit IVPUSH PRN PRN PRN Reason: Heparin Last Admin: 08/18/18 02:35 Dose: 5,000 unit Lactated Ringer's (Lactated Ringers Solution) 1,000 ml in 1,000 mls @ 100 mls/ hr IV ASDIR [facility] Last Admin: 08/17/18 21:00 Dose: 100 mls/hr Heparin Sodium/Dextrose (Heparin Infusion -) 25,000 units in 500 mls @ 20 mls/ hr IVPB TITR [facility]; Protocol Last Titration: 08/18/18 09:33 Dose: 1,250 units/hr, 25 mls/hr Meropenem 500 mg/ Dextrose 100 mls @ 200 mls/hr IVPB Q12H [facility] Last Admin: 08/18/18 06:40 Dose: 200 mls/hr Vancomycin HCl 1,500 mg/ (Dextrose) 500 mls @ 250 mls/hr IVPB ONCE ONE; Protocol Stop: 08/18/18 12:59 Insulin Aspart (Novolog Vial Sliding Scale -) 1 vial SQ ACHS [facility]; Protocol Last Admin: 08/18/18 06:37 Dose: Not Given Mupirocin (Bactroban Ointment (For Decolonization) -) 1 applic NS BID [facility] Stop: 08/22/18 21:59 Last Admin: 08/18/18 09:37 Dose: 1 unit [id number] Ethyl Esters (Lovaza -) 2 gm PO BID [facility] Last Admin: 08/18/18 09:36 Dose: 2 gm Ranitidine HCl (Zantac -) 150 mg PO BID [facility] Last Admin: 08/18/18 09:36 Dose: 150 mg Ranolazine (Ranexa -) 500 mg PO BID [facility] Last Admin: 08/18/18 09:36 Dose: 500 mg 57 year old gentleman with hx of 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 #HECTOR on CKD secondary to renal hypoprofuison in setting of sepsis vs. obstruction #Sepsis syndrome from soft tissue infection r/o bacteremia #NSTEMI vs. Demand ischemia #Acute on chronic anemia #Hx of Hypertension #Lactic acidosis now resolved #Hypocalcemia Check urine studies for FeNa, UPCR as well as renal US when stable No indication for [employer] despite low eGFR Continue volume infuison with goal MAP > 65, CVP 10-12 Trend renal function and electrolytes daily Dose all meds for Cr Cl < 15 avoid nephrotoxins if possible corrected Ca is 8.1, no acute need for IV iron Continue Abx as per ID, f/u cultures Check iron studies, consider transfusion for hemodynamic instability or Hgb < 7 Continue clonidine for now with close monitoring of BP (abrupt withdrawl can cause rebound hypertension) ICU monitoring cardiology following, on heparin gtt Thank you will follow Jose Manuel Pendleton DO
--- NOTE | 2018-08-18 16:04 | PN ---
Physical Exam: SUBJECTIVE: Patient seen and examined at bed side this afternoon. Eating lunch. No complaints. Denies chest pain, sob, cough, palpitation, abdominal pain, nausea or vomiting. BM today. Bladder habit normal. Overnight, had one episode of loose stool. OBJECTIVE: Vital Signs Period Temp Pulse Resp BP Sys/Gallo Pulse Ox Last 24 Hr 98 F-101.6 F 68-88 18-23 93-146/46-76 98-99 GENERAL: Morbidly obese male, sitting in bed, eating lunch, patient is awake, alert, and fully oriented, in no acute distress. HEAD: Normal with no signs of trauma. EYES: EOM Intact, no pallor or icterus. ENT: Ears normal, moist mucous membranes. NECK: Supple, No JVD LUNGS: Breath sounds equal, clear to auscultation bilaterally, no wheezes, no crackles, no accessory muscle use. HEART: Regular rate and rhythm, S1, S2 with soft systolic murmur. ABDOMEN: Soft, nontender, no organomegaly. UPPER EXTREMITIES: 2+ pulses, warm, well-perfused, no edema. LOWER EXTREMITIES: Left second toe-erythema +. No peripheral edema. NEUROLOGICAL: No facial droop. Normal speech, gait not observed. PSYCH: Normal mood, normal affect. SKIN: Warm, dry, normal turgor, no rashes or lesions noted Laboratory Results - last 24 hr 08/17/18 08/17/18 08/17/18 14:41 16:13 20:20 WBC RBC Hgb Hct MCV MCH MCHC RDW Plt Count MPV Absolute Neuts (auto) Neutrophils % Lymphocytes % Monocytes % Eosinophils % Basophils % Nucleated RBC % PT with INR INR PTT (Actin FS) VBG pH 7.39 POC VBG pCO2 36.6 L POC VBG pO2 33.8 Mixed VBG HCO3 22.1 Sodium Potassium Chloride Carbon Dioxide Anion Gap BUN Creatinine Creat Clearance w eGFR POC Glucometer Random Glucose Lactic Acid 1.1 Calcium Phosphorus Magnesium Total Bilirubin AST ALT Alkaline Phosphatase Troponin I Total Protein Albumin Urine Color Yellow Urine Appearance Clear Urine pH 5.0 Ur Specific [place] 1.014 Urine Protein 2+ H Urine Glucose (UA) Negative Urine Ketones Negative Urine Blood 1+ H Urine Nitrite Negative Urine Bilirubin Negative Urine Urobilinogen Negative Ur Leukocyte Esterase Negative Urine WBC (Auto) <1 Urine RBC (Auto) 3 Ur Epithelial Cells Rare Urine Bacteria Rare Urine Mucus Rare Random Vancomycin 08/17/18 08/18/18 08/18/18 20:20 01:30 01:30 WBC RBC Hgb Hct MCV MCH MCHC RDW Plt Count MPV Absolute Neuts (auto) Neutrophils % Lymphocytes % Monocytes % Eosinophils % Basophils % Nucleated RBC % PT with INR INR PTT (Actin FS) 37.3 H VBG pH POC VBG pCO2 POC VBG pO2 Mixed VBG HCO3 Sodium Potassium Chloride Carbon Dioxide Anion Gap BUN Creatinine Creat Clearance w eGFR POC Glucometer Random Glucose Lactic Acid Calcium Phosphorus Magnesium Total Bilirubin AST ALT Alkaline Phosphatase Troponin I 37.60 H* 34.40 H* Total Protein Albumin Urine Color Urine Appearance Urine pH Ur Specific [place] Urine Protein Urine Glucose (UA) Urine Ketones Urine Blood Urine Nitrite Urine Bilirubin Urine Urobilinogen Ur Leukocyte Esterase Urine WBC (Auto) Urine RBC (Auto) Ur Epithelial Cells Urine Bacteria Urine Mucus Random Vancomycin 08/18/18 08/18/18 08/18/18 06:27 08:05 08:05 WBC 5.4 RBC 2.53 L Hgb 8.1 L Hct 22.9 L D MCV 90.6 MCH 32.0 MCHC 35.3 RDW 15.6 Plt Count 130 L D MPV 6.8 L Absolute Neuts (auto) 4.5 Neutrophils % 83.6 H Lymphocytes % 7.6 L D Monocytes % 8.5 Eosinophils % 0.0 Basophils % 0.3 Nucleated RBC % 0 PT with INR INR PTT (Actin FS) VBG pH POC VBG pCO2 POC VBG pO2 Mixed VBG HCO3 Sodium Potassium Chloride Carbon Dioxide Anion Gap BUN Creatinine Creat Clearance w eGFR POC Glucometer [phone] Random Glucose Lactic Acid Calcium Phosphorus Magnesium Total Bilirubin AST ALT Alkaline Phosphatase Troponin I Total Protein Albumin Urine Color Urine Appearance Urine pH Ur Specific [place] Urine Protein Urine Glucose (UA) Urine Ketones Urine Blood Urine Nitrite Urine Bilirubin Urine Urobilinogen Ur Leukocyte Esterase Urine WBC (Auto) Urine RBC (Auto) Ur Epithelial Cells Urine Bacteria Urine Mucus Random Vancomycin 7.7 L 08/18/18 08/18/18 08/18/18 08:05 08:05 08:05 WBC RBC Hgb Hct MCV MCH MCHC RDW Plt Count MPV Absolute Neuts (auto) Neutrophils % Lymphocytes % Monocytes % Eosinophils % Basophils % Nucleated RBC % PT with INR 14.60 H INR 1.23 H PTT (Actin FS) 47.3 H VBG pH POC VBG pCO2 POC VBG pO2 Mixed VBG HCO3 Sodium 138 Potassium 4.2 Chloride 108 H Carbon Dioxide 21 Anion Gap 9 BUN 81 H Creatinine 4.3 H Creat Clearance w eGFR 14.36 POC Glucometer Random Glucose 189 H Lactic Acid Calcium 6.9 L* Phosphorus 4.1 Magnesium 1.1 L Total Bilirubin 0.6 AST 100 H ALT 30 Alkaline Phosphatase 69 Troponin I 26.20 H* Total Protein 5.6 L Albumin 2.4 L Urine Color Urine Appearance Urine pH Ur Specific [place] Urine Protein Urine Glucose (UA) Urine Ketones Urine Blood Urine Nitrite Urine Bilirubin Urine Urobilinogen Ur Leukocyte Esterase Urine WBC (Auto) Urine RBC (Auto) Ur Epithelial Cells Urine Bacteria Urine Mucus Random Vancomycin 08/18/18 08/18/18 10:55 15:00 WBC RBC Hgb Hct MCV MCH MCHC RDW Plt Count MPV Absolute Neuts (auto) Neutrophils % Lymphocytes % Monocytes % Eosinophils % Basophils % Nucleated RBC % PT with INR INR PTT (Actin FS) 32.9 VBG pH POC VBG pCO2 POC VBG pO2 Mixed VBG HCO3 Sodium Potassium Chloride Carbon Dioxide Anion Gap BUN Creatinine Creat Clearance w eGFR POC Glucometer [phone] Random Glucose Lactic Acid Calcium Phosphorus Magnesium Total Bilirubin AST ALT Alkaline Phosphatase Troponin I Total Protein Albumin Urine Color Urine Appearance Urine pH Ur Specific [place] Urine Protein Urine Glucose (UA) Urine Ketones Urine Blood Urine Nitrite Urine Bilirubin Urine Urobilinogen Ur Leukocyte Esterase Urine WBC (Auto) Urine RBC (Auto) Ur Epithelial Cells Urine Bacteria Urine Mucus Random Vancomycin Active Medications Generic Name Dose Route Start Last Admin Trade Name Freq PRN Reason Stop Dose Admin Acetaminophen 650 mg 08/17/18 18:08 Tylenol - PO Q4H PRN FEVER Acetaminophen 1,000 mg 08/17/18 19:32 08/18/18 04:45 Ofirmev Injection - IVPB 1,000 mg Q6H PRN Administration PAIN LEVEL 1-5 Aspirin 81 mg 08/18/18 10:00 08/18/18 09:36 Asa - PO 81 mg DAILY CRIS Administration Atorvastatin Calcium 80 mg 08/17/18 22:00 08/17/18 22:04 Lipitor - PO 80 mg HS CRIS Administration Chlorhexidine Gluconate 1 applic 08/17/18 22:00 08/18/18 02:29 Hibiclens For Decolonization - TP 1 applic HS CRIS Administration Clonidine HCl 0.3 mg 08/18/18 10:00 08/18/18 11:29 Catapres Tts Patch - TD 0.3 mg Q7D CRIS Administration Clopidogrel Bisulfate 75 mg 08/18/18 10:00 08/18/18 09:36 Plavix - PO 75 mg DAILY CRIS Administration Heparin Sodium (Porcine) 1,000 unit 08/17/18 18:13 08/18/18 09:36 Heparin - IVPUSH 1,000 unit PRN PRN Administration Heparin Heparin Sodium (Porcine) 5,000 unit 08/17/18 18:13 08/18/18 02:35 Heparin - IVPUSH 5,000 unit PRN PRN Administration Heparin Lactated Ringer's 1,000 ml in 1,000 mls @ 100 mls/hr 08/17/18 18:00 08/17/18 21:00 Lactated Ringers Solution IV 100 mls/hr ASDIR CRIS Administration Heparin Sodium/Dextrose 25,000 units in 500 mls @ 20 mls/hr 08/17/18 18:30 09:33 Heparin Infusion - IVPB 1,250 units/hr TITR CRIS 25 mls/hr Titration Protocol 1,000 UNITS/HR Meropenem 500 mg/ Dextrose 100 mls @ 200 mls/hr 08/17/18 18:45 08/18/18 06:40 IVPB 200 mls/hr Q12H CRIS Administration Insulin Aspart 1 vial 08/17/18 22:00 08/18/18 11:18 Novolog Vial Sliding Scale - SQ Not Given ACHS CRIS Protocol Mupirocin 1 applic 08/17/18 22:00 08/18/18 09:37 Bactroban Ointment (For Decolonization) - NS 08/22/18 21:59 1 unit BID CRIS Administration [id number] Ethyl Esters 2 gm 08/17/18 22:00 08/18/18 09:36 Lovaza - PO 2 gm BID CRIS Administration Ranitidine HCl 150 mg 08/17/18 22:00 08/18/18 09:36 Zantac - PO 150 mg BID CRIS Administration Ranolazine 500 mg 08/17/18 22:00 08/18/18 09:36 Ranexa - PO 500 mg BID CRIS Administration ECHO 08/18/18: Left ventricular size, thickness, function normal. Left atrium and right atrium mildly dilated. Moderate Aortic stenosis. Trace TR. Right ventricular systolic pressure 40-50 mmHg. ASSESSMENT/PLAN: Patient is a 57 year old male with significant PMHx IDDM (on insulin pump), HTN , HLD, CAD s/p CABG and s/p AICD, CHF, Aortic stenosis, CKD, p/w fever, rigors, malaise x 1 day, admitted to ICU for NSTEMI and sepsis. # Sepsis likely secondary to skin infection Admitted with septic shock now resolved with IV fluid Erythema on the left foot, infected Left LE second digit, likely source is the skin. Left toe xray-No acute pathology. Admitted in ICU Continue IV Merepenem 500mg BID (renally adjusted) Received IV Vanc in the ED. Blood cultures neg. Urine cultures pending # NSTEMI Troponins trending down 37--> 34--> 26 Continue IV Heparin Drip Continue Statin 80 mg HS Continue Aspirin 81 mg/Plavix Echo reviewed. Report as above Will probably need a cath once medically optimized Cardiology on board. # HECTOR on CKD likely secondary to hypoperfusion from Sepsis Creatiine 4.4 Avoid nephrotoxic drugs Renal on board # DM Uses Insulin pump at home. Continue ISS, BGMs, watch for hypoglycemic episodes # FEN IV LR @ 100 mls.hr Electrolytes: Hypomg, now repleted Diabetic diet # Prophylaxis For DVT: Already on Heparin drip For GI: Ranitidine 150 mg BID # Code Status: Full Code # Dispo: Continue to monitor in ICU. Illness, Investigation and Plan of care explained to the patient. He verbalized understanding. Case discussed with Dr. Blackburn. Visit type - Emergency Visit Emergency Visit: Yes ED Registration Date: 08/17/18 Care time: The patient presented to the Emergency Department on the above date and was hospitalized for further evaluation of their emergent condition. - New Patient This patient is new to me today: Yes Date on this admission: 08/18/18 - Critical Care Critical Care patient: Yes Total Critical Care Time (in minutes): 35 Critical Care Statement: The care of this patient involved high complexity decision making to prevent further life threatening deterioration of the patient 's condition and/or to evaluate & treat vital organ system(s) failure or risk of failure. - Discharge Referral Referred to [facility] Med P.C.: No
[2018-08-18] MEDS ORDERED: MAGNESIUM SULF 50% (8.12 MEQ/2 ML-1 GM VIAL) IVPB ONE (16:19)
--- NOTE | 2018-08-18 17:40 | PN ---
Teaching Attending Note Name of Resident: Char Vera ATTENDING PHYSICIAN STATEMENT I saw and evaluated the patient. I reviewed the resident's note and discussed the case with the resident. I agree with the resident's findings and plan as documented with exceptions below. SUBJECTIVE: Patient seen and examined. feels better, had an episode of 'angina' yesterday, when tried to go to bathroom, none since. Left toe pain. OBJECTIVE: Vital Signs Period Temp Pulse Resp BP Sys/Gallo Pulse Ox Last 24 Hr 98 F-101.6 F 68-88 20-23 109-146/46-76 98-99 Intake & Output 08/15/18 08/16/18 08/17/18 08/18/18 23:59 23:59 23:59 23:59 Intake Total 2200 1555 Output Total 200 700 Balance 2000 855 Weight 288 lb 288 lb 12.889 oz General: lying in bed in no acute distress Neck :supple, no JVD Chest: CTAB, no rales or wheezing Abdomen;Soft, obese Extremities: left 2nd toe with erythema/swelling, cut with dried blood at the tip, no active discharge, mild tenderness, strong DP pulses present Home Medications Medication Instructions Recorded Ranolazine [Ranexa] 500 mg PO BID 07/13/13 Ranitidine [Zantac -] 150 mg PO BID 06/19/17 Clonidine Patch [Catapres Tts 0.3 mg TD WEEKLY 06/21/17 Patch -] Aspirin [ASA -] 81 mg PO DAILY 09/28/17 Nitroglycerin [Nitrostat] 0.4 mg SL PRN PRN 09/28/17 Torsemide 1 tab PO DAILY 09/29/17 Carvedilol [Coreg -] 25 mg PO BID #60 tablet 09/30/17 Atorvastatin Ca [Lipitor] 80 mg PO HS 06/01/18 Ergocalciferol (Vitamin D2) 50,000 unit PO WEEKLY 06/01/18 [Vitamin D2] Insulin Lispro [Humalog] 0 unit SQ ASDIR PRN 06/01/18 [place]-3 Fatty Acids [[place]-3] 1,000 mg PO BID 06/01/18 Sacubitril/Valsartan [Entresto 49 1 each PO BID 06/01/18 mg-51 mg Tablet] Clopidogrel Bisulfate [Plavix -] 75 mg PO DAILY 30 Days #0 tab 06/08/18 Active Medications Acetaminophen (Tylenol -) 650 mg PO Q4H PRN PRN Reason: FEVER Acetaminophen (Ofirmev Injection -) 1,000 mg IVPB Q6H PRN PRN Reason: PAIN LEVEL 1-5 Last Admin: 08/18/18 04:45 Dose: 1,000 mg Aspirin (Asa -) 81 mg PO DAILY [facility] Last Admin: 08/18/18 09:36 Dose: 81 mg Atorvastatin Calcium (Lipitor -) 80 mg PO HS [facility] Last Admin: 08/17/18 22:04 Dose: 80 mg Chlorhexidine Gluconate (Hibiclens For Decolonization -) 1 applic TP HS [facility] Last Admin: 08/18/18 02:29 Dose: 1 applic Clonidine HCl (Catapres Tts Patch -) 0.3 mg TD Q7D [facility] Last Admin: 08/18/18 11:29 Dose: 0.3 mg Clopidogrel Bisulfate (Plavix -) 75 mg PO DAILY [facility] Last Admin: 08/18/18 09:36 Dose: 75 mg Heparin Sodium (Porcine) (Heparin -) 1,000 unit IVPUSH PRN PRN PRN Reason: Heparin Last Admin: 08/18/18 09:36 Dose: 1,000 unit Heparin Sodium (Porcine) (Heparin -) 5,000 unit IVPUSH PRN PRN PRN Reason: Heparin Last Admin: 08/18/18 17:32 Dose: 5,000 unit Lactated Ringer's (Lactated Ringers Solution) 1,000 ml in 1,000 mls @ 100 mls/ hr IV ASDIR [facility] Last Admin: 08/17/18 21:00 Dose: 100 mls/hr Heparin Sodium/Dextrose (Heparin Infusion -) 25,000 units in 500 mls @ 20 mls/ hr IVPB TITR [facility]; Protocol Last Titration: 08/18/18 17:29 Dose: 1,400 units/hr, 28 mls/hr Meropenem 500 mg/ Dextrose 100 mls @ 200 mls/hr IVPB Q12H [facility] Last Admin: 08/18/18 06:40 Dose: 200 mls/hr Insulin Aspart (Novolog Vial Sliding Scale -) 1 vial SQ ACHS [facility]; Protocol Last Admin: 08/18/18 11:18 Dose: Not Given Mupirocin (Bactroban Ointment (For Decolonization) -) 1 applic NS BID [facility] Stop: 08/22/18 21:59 Last Admin: 08/18/18 09:37 Dose: 1 unit [id number]-[id number] Ethyl Esters (Lovaza -) 2 gm PO BID [facility] Last Admin: 08/18/18 09:36 Dose: 2 gm Ranitidine HCl (Zantac -) 150 mg PO BID [facility] Last Admin: 08/18/18 09:36 Dose: 150 mg Ranolazine (Ranexa -) 500 mg PO BID [facility] Last Admin: 08/18/18 09:36 Dose: 500 mg Laboratory Results - last 24 hr 08/17/18 08/17/18 08/17/18 14:41 16:13 20:20 WBC RBC Hgb Hct MCV MCH MCHC RDW Plt Count MPV Absolute Neuts (auto) Neutrophils % Lymphocytes % Monocytes % Eosinophils % Basophils % Nucleated RBC % PT with INR INR PTT (Actin FS) VBG pH 7.39 POC VBG pCO2 36.6 L POC VBG pO2 33.8 Mixed VBG HCO3 22.1 Sodium Potassium Chloride Carbon Dioxide Anion Gap BUN Creatinine Creat Clearance w eGFR POC Glucometer Random Glucose Lactic Acid 1.1 Calcium Phosphorus Magnesium Total Bilirubin AST ALT Alkaline Phosphatase Troponin I Total Protein Albumin Urine Color Yellow Urine Appearance Clear Urine pH 5.0 Ur Specific [place] 1.014 Urine Protein 2+ H Urine Glucose (UA) Negative Urine Ketones Negative Urine Blood 1+ H Urine Nitrite Negative Urine Bilirubin Negative Urine Urobilinogen Negative Ur Leukocyte Esterase Negative Urine WBC (Auto) <1 Urine RBC (Auto) 3 Ur Epithelial Cells Rare Urine Bacteria Rare Urine Mucus Rare Random Vancomycin 08/17/18 08/18/18 08/18/18 20:20 01:30 01:30 WBC RBC Hgb Hct MCV MCH MCHC RDW Plt Count MPV Absolute Neuts (auto) Neutrophils % Lymphocytes % Monocytes % Eosinophils % Basophils % Nucleated RBC % PT with INR INR PTT (Actin FS) 37.3 H VBG pH POC VBG pCO2 POC VBG pO2 Mixed VBG HCO3 Sodium Potassium Chloride Carbon Dioxide Anion Gap BUN Creatinine Creat Clearance w eGFR POC Glucometer Random Glucose Lactic Acid Calcium Phosphorus Magnesium Total Bilirubin AST ALT Alkaline Phosphatase Troponin I 37.60 H* 34.40 H* Total Protein Albumin Urine Color Urine Appearance Urine pH Ur Specific [place] Urine Protein Urine Glucose (UA) Urine Ketones Urine Blood Urine Nitrite Urine Bilirubin Urine Urobilinogen Ur Leukocyte Esterase Urine WBC (Auto) Urine RBC (Auto) Ur Epithelial Cells Urine Bacteria Urine Mucus Random Vancomycin 08/18/18 08/18/18 08/18/18 06:27 08:05 08:05 WBC 5.4 RBC 2.53 L Hgb 8.1 L Hct 22.9 L D MCV 90.6 MCH 32.0 MCHC 35.3 RDW 15.6 Plt Count 130 L D MPV 6.8 L Absolute Neuts (auto) 4.5 Neutrophils % 83.6 H Lymphocytes % 7.6 L D Monocytes % 8.5 Eosinophils % 0.0 Basophils % 0.3 Nucleated RBC % 0 PT with INR INR PTT (Actin FS) VBG pH POC VBG pCO2 POC VBG pO2 Mixed VBG HCO3 Sodium Potassium Chloride Carbon Dioxide Anion Gap BUN Creatinine Creat Clearance w eGFR POC Glucometer [phone] Random Glucose Lactic Acid Calcium Phosphorus Magnesium Total Bilirubin AST ALT Alkaline Phosphatase Troponin I Total Protein Albumin Urine Color Urine Appearance Urine pH Ur Specific [place] Urine Protein Urine Glucose (UA) Urine Ketones Urine Blood Urine Nitrite Urine Bilirubin Urine Urobilinogen Ur Leukocyte Esterase Urine WBC (Auto) Urine RBC (Auto) Ur Epithelial Cells Urine Bacteria Urine Mucus Random Vancomycin 7.7 L 08/18/18 08/18/18 08/18/18 08:05 08:05 08:05 WBC RBC Hgb Hct MCV MCH MCHC RDW Plt Count MPV Absolute Neuts (auto) Neutrophils % Lymphocytes % Monocytes % Eosinophils % Basophils % Nucleated RBC % PT with INR 14.60 H INR 1.23 H PTT (Actin FS) 47.3 H VBG pH POC VBG pCO2 POC VBG pO2 Mixed VBG HCO3 Sodium 138 Potassium 4.2 Chloride 108 H Carbon Dioxide 21 Anion Gap 9 BUN 81 H Creatinine 4.3 H Creat Clearance w eGFR 14.36 POC Glucometer Random Glucose 189 H Lactic Acid Calcium 6.9 L* Phosphorus 4.1 Magnesium 1.1 L Total Bilirubin 0.6 AST 100 H ALT 30 Alkaline Phosphatase 69 Troponin I 26.20 H* Total Protein 5.6 L Albumin 2.4 L Urine Color Urine Appearance Urine pH Ur Specific [place] Urine Protein Urine Glucose (UA) Urine Ketones Urine Blood Urine Nitrite Urine Bilirubin Urine Urobilinogen Ur Leukocyte Esterase Urine WBC (Auto) Urine RBC (Auto) Ur Epithelial Cells Urine Bacteria Urine Mucus Random Vancomycin 08/18/18 08/18/18 10:55 15:00 WBC RBC Hgb Hct MCV MCH MCHC RDW Plt Count MPV Absolute Neuts (auto) Neutrophils % Lymphocytes % Monocytes % Eosinophils % Basophils % Nucleated RBC % PT with INR INR PTT (Actin FS) 32.9 VBG pH POC VBG pCO2 POC VBG pO2 Mixed VBG HCO3 Sodium Potassium Chloride Carbon Dioxide Anion Gap BUN Creatinine Creat Clearance w eGFR POC Glucometer [id number] Random Glucose Lactic Acid Calcium Phosphorus Magnesium Total Bilirubin AST ALT Alkaline Phosphatase Troponin I Total Protein Albumin Urine Color Urine Appearance Urine pH Ur Specific [place] Urine Protein Urine Glucose (UA) Urine Ketones Urine Blood Urine Nitrite Urine Bilirubin Urine Urobilinogen Ur Leukocyte Esterase Urine WBC (Auto) Urine RBC (Auto) Ur Epithelial Cells Urine Bacteria Urine Mucus Random Vancomycin Microbiology 08/17/18 14:10 Blood - Peripheral Venous Blood Culture - Preliminary NO GROWTH OBTAINED AFTER 24 HOURS, INCUBATION TO CONTINUE FOR 4 DAYS. 08/17/18 14:25 Blood - Peripheral Venous Blood Culture - Preliminary NO GROWTH OBTAINED AFTER 24 HOURS, INCUBATION TO CONTINUE FOR 4 DAYS. 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 IVF with close volume status monitoring. ID input noted/Meropenem/vancomycin. will need additional imaging left foot when hemodynamics improve. Cardiology input noted. Heparin drip, 2D echo noted. Needs cardiac risk stratification when improved, however, renal function limiting factor. Nephrology input noted. Monitor renal function Advised patient to turn off insulin pump for now. ISS, diabetic diet. Standing insulin based on blood sugars. ASA/plavix/ranexa/statin/clonidine. Resume coreg in 24h hours if BP stable. PLan discussed with patient. Care co-ordinated with ICU Total critical care time spent 35 min.
--- NOTE | 2018-08-18 19:00 | EKG ---
Test Reason : Blood Pressure : / mmHG Vent. Rate : 075 BPM Atrial Rate : 075 BPM P-R Int : 186 ms QRS Dur : 108 ms QT Int : 414 ms P-R-T Axes : 074 002 140 degrees QTc Int : 462 ms NORMAL SINUS RHYTHM PROLONGED QT ABNORMAL ECG WHEN COMPARED WITH ECG OF 02-JUN-2018 11:53, SC INTERVAL HAS DECREASED Confirmed by LUBNA TUCKER MD ([id number]) on 08/18/2018 7:00:06 PM Referred By: Confirmed By:LUBNA TUCKER MD
[2018-08-18] MEDS: ATORVASTATIN CA 80 MG TABLET (FP) PO SCH (21:08)
[2018-08-18] MEDS: CARVEDILOL 25 MG TABLET (FP) PO SCH (21:09)
[2018-08-19] MEDS: LACTATED RINGERS SOLUTION 1,000 ML/1,000 ML INFUS.BAG IV SCH (04:14)
[2018-08-19] MEDS: ACETAMINOPHEN 1000 MG/100 ML VIAL (NON FORMULARY) IVPB PRN (04:30)
[2018-08-19 05:57] LABS: BASO % 0.5 % (0-2.0); EOS % 0.6 % (0-4.5); HEMATOCRIT 27.1 % (35.4-49); HEMOGLOBIN 9.2 GM/dL (11.7-16.9); LYMPH % 8.5 % (8-40); MCH 30.5 pg (25.7-33.7); MCHC 33.8 g/dl (32.0-35.9); MEAN CELL VOLUME 90.2 fl (80-96); MEAN PLT VOLUME 7.3 fl (7.5-11.1); MONO % 8.8 % (3.8-10.2); NEUT % 81.6 % (42.8-82.8); PLATELET COUNT 175 K/MM3 (134-434); RBC 3.01 M/mm3 (4.00-5.60); RDW 15.8 % (11.9-15.9); WHITE BLOOD COUNT 7.4 K/mm3 (4.0-10.0)
[2018-08-19] MEDS: MEROPENEM 500 MG in DEXTROSE 5%-WATER 100 ML IVPB SCH ×2 (06:24→17:48)
[2018-08-19] MEDS ORDERED: LACTATED RINGERS SOLUTION 1,000 ML/1,000 ML INFUS.BAG IV SCH (07:08)
[2018-08-19 07:27] LABS: ALBUMIN 2.5 g/dl (3.4-5.0); ALK PHOS 77 U/L (45-117); ANION GAP 12 MMOL/L (8-16); BILIRUBIN,TOTAL 0.8 mg/dL (0.2-1); BLOOD UREA NITROGEN 72 mg/dL (7-18); CALCIUM 7.7 mg/dL (8.5-10.1); CHLORIDE 106 mmol/L (98-107); CO2 19 mmol/L (21-32); CREATININE 4.2 mg/dL (0.55-1.3); GLUCOSE,RANDOM 94 mg/dL (74-106); MAGNESIUM 1.9 mg/dL (1.8-2.4); PHOSPHOROUS 4.6 mg/dL (2.5-4.9); POTASSIUM 4.2 mmol/L (3.5-5.1); SGOT/AST 83 U/L (15-37); SGPT/ALT 41 U/L (13-61); SODIUM 137 mmol/L (136-145); TOT PROT 6.7 g/dl (6.4-8.2)
[2018-08-19] MEDS: INSULIN SLIDING SCALE (NOVOLOG) 1 VIAL SQ SCH ×4 (08:54→21:41)
--- NOTE | 2018-08-19 09:10 | PN ---
Physical Exam: SUBJECTIVE: Patient seen and examined at bedside. C/o worsening diarrhea, new onset SOB, diaphoresis, malaise. Desatured overnight, recovered on increased O2 by NC. Fever to 101.2 at 4am. OBJECTIVE: Vital Signs Period Temp Pulse Resp BP Sys/Gallo Pulse Ox Last 24 Hr 98.1 F-101.8 F 73-88 17-29 102-136/39-70 97 GENERAL: A&Ox3, NAD HEAD: NC/AT EYES: PERRLA, EOMI EARS, NOSE, THROAT: MMM NECK: Normal range of motion, supple without lymphadenopathy, JVD, or masses. LUNGS: CTA b/l, breathing more labored, poorer inspiratory effort HEART: Paced rhythm, no m/r/g ABDOMEN: +bs, soft, NT, ND UPPER EXTREMITIES: 2+ pulses, warm, well-perfused. No cyanosis. No clubbing. Cap refill <2 seconds. No peripheral edema. LOWER EXTREMITIES: 1+ pulses, warm, well-perfused. No calf tenderness. Distal LLE swollen. Erythematous ulcer of left second toe with worsening swelling, infected-appearing NEUROLOGICAL: grain drier, motor, sensory systems w/o focal deficit PSYCHIATRIC: Cooperative. Good eye contact. Appropriate mood and affect. SKIN: Warm, dry, normal turgor Laboratory Results - last 24 hr 08/18/18 08/18/18 08/18/18 08:05 08:05 08:05 WBC RBC Hgb Hct MCV MCH MCHC RDW Plt Count MPV Absolute Neuts (auto) Neutrophils % Lymphocytes % Monocytes % Eosinophils % Basophils % Nucleated RBC % PTT (Actin FS) Sodium 138 Potassium 4.2 Chloride 108 H Carbon Dioxide 21 Anion Gap 9 BUN 81 H Creatinine 4.3 H Creat Clearance w eGFR 14.36 POC Glucometer Random Glucose 189 H Hemoglobin A1c % Calcium 6.9 L* Phosphorus 4.1 Magnesium 1.1 L Total Bilirubin 0.6 AST 100 H ALT 30 Alkaline Phosphatase 69 Creatine Kinase Creatine Kinase Index CK-MB (CK-2) Troponin I 26.20 H* Total Protein 5.6 L Albumin 2.4 L Random Vancomycin 7.7 L 08/18/18 08/18/18 08/18/18 10:55 15:00 17:40 WBC RBC Hgb Hct MCV MCH MCHC RDW Plt Count MPV Absolute Neuts (auto) Neutrophils % Lymphocytes % Monocytes % Eosinophils % Basophils % Nucleated RBC % PTT (Actin FS) 32.9 Sodium Potassium Chloride Carbon Dioxide Anion Gap BUN Creatinine Creat Clearance w eGFR POC Glucometer 95.43426 352.79674 Random Glucose Hemoglobin A1c % Calcium Phosphorus Magnesium Total Bilirubin AST ALT Alkaline Phosphatase Creatine Kinase Creatine Kinase Index CK-MB (CK-2) Troponin I Total Protein Albumin Random Vancomycin 08/18/18 08/19/18 08/19/18 21:10 05:15 05:15 WBC 7.4 RBC 3.01 L Hgb 9.2 L Hct 27.1 L D MCV 90.2 MCH 30.5 MCHC 33.8 RDW 15.8 Plt Count 175 D MPV 7.3 L Absolute Neuts (auto) 6.1 Neutrophils % 81.6 Lymphocytes % 8.5 Monocytes % 8.8 Eosinophils % 0.6 D Basophils % 0.5 Nucleated RBC % 0 PTT (Actin FS) 65.7 H 51.9 H Sodium Potassium Chloride Carbon Dioxide Anion Gap BUN Creatinine Creat Clearance w eGFR POC Glucometer Random Glucose Hemoglobin A1c % Calcium Phosphorus Magnesium Total Bilirubin AST ALT Alkaline Phosphatase Creatine Kinase Creatine Kinase Index CK-MB (CK-2) Troponin I Total Protein Albumin Random Vancomycin 08/19/18 08/19/18 08/19/18 05:15 05:15 05:15 WBC RBC Hgb Hct MCV MCH MCHC RDW Plt Count MPV Absolute Neuts (auto) Neutrophils % Lymphocytes % Monocytes % Eosinophils % Basophils % Nucleated RBC % PTT (Actin FS) Sodium 137 Potassium 4.2 Chloride 106 Carbon Dioxide 19 L Anion Gap 12 BUN 72 H Creatinine 4.2 H Creat Clearance w eGFR 14.75 POC Glucometer Random Glucose 94 Hemoglobin A1c % 6.0 Calcium 7.7 L Phosphorus 4.6 Magnesium 1.9 Total Bilirubin 0.8 AST 83 H ALT 41 Alkaline Phosphatase 77 Creatine Kinase 402 H Creatine Kinase Index 2.8 CK-MB (CK-2) 11.6 H Troponin I 19.10 H* Total Protein 6.7 Albumin 2.5 L Random Vancomycin Active Medications Generic Name Dose Route Start Last Admin Trade Name Freq PRN Reason Stop Dose Admin Acetaminophen 650 mg 08/17/18 18:08 Tylenol - PO Q4H PRN FEVER Aspirin 81 mg 08/18/18 10:00 08/18/18 09:36 Asa - PO 81 mg DAILY CRIS Administration Atorvastatin Calcium 80 mg 08/17/18 22:00 08/18/18 21:08 Lipitor - PO 80 mg HS CRIS Administration Carvedilol 25 mg 08/18/18 22:00 08/18/18 21:09 Coreg - PO 25 mg BID CRIS Administration Chlorhexidine Gluconate 1 applic 08/17/18 22:00 08/18/18 21:08 Hibiclens For Decolonization - TP 1 applic HS CRIS Administration Clonidine HCl 0.3 mg 08/18/18 10:00 08/18/18 11:29 Catapres Tts Patch - TD 0.3 mg Q7D CRIS Administration Clopidogrel Bisulfate 75 mg 08/18/18 10:00 08/18/18 09:36 Plavix - PO 75 mg DAILY CRIS Administration Heparin Sodium (Porcine) 1,000 unit 08/17/18 18:13 08/18/18 09:36 Heparin - IVPUSH 1,000 unit PRN PRN Administration Heparin Heparin Sodium (Porcine) 5,000 unit 08/17/18 18:13 08/18/18 17:32 Heparin - IVPUSH 5,000 unit PRN PRN Administration Heparin Heparin Sodium/Dextrose 25,000 units in 500 mls @ 20 mls/hr 08/17/18 18:30 08:53 Heparin Infusion - IVPB 1,400 units/hr TITR CRIS 28 mls/hr Titration Protocol 1,000 UNITS/HR Meropenem 500 mg/ Dextrose 100 mls @ 200 mls/hr 08/17/18 18:45 08/19/18 06:24 IVPB 200 mls/hr Q12H CRIS Administration Lactated Ringer's 1,000 ml in 1,000 mls @ 42 mls/hr 08/19/18 07:08 Lactated Ringers Solution IV ASDIR CRIS Insulin Aspart 1 vial 08/17/18 22:00 08/19/18 08:54 Novolog Vial Sliding Scale - SQ Not Given ACHS [facility] Protocol Lactobacillus Acidophilus 1 tab 08/19/18 10:00 Bacid - PO DAILY [facility] Mupirocin 1 applic 08/17/18 22:00 08/18/18 21:09 Bactroban Ointment (For Decolonization) - NS 08/22/18 21:59 1 unit BID CRIS Administration [id number]-7-[id number] Ethyl Esters 2 gm 08/17/18 22:00 08/18/18 21:08 Lovaza - PO 2 gm BID CRIS Administration Ranitidine HCl 150 mg 08/17/18 22:00 08/18/18 21:08 Zantac - PO 150 mg BID CRIS Administration Ranolazine 500 mg 08/17/18 22:00 08/18/18 21:08 Ranexa - PO 500 mg BID CRIS Administration ASSESSMENT/PLAN: 57 y/o M w/ PMHx IDDM (on insulin pump), HTN, HLD, CAD s/p CABG and s/p AICD, CHF, Aortic stenosis, CKD, p/w fever, rigors, malaise x 1 day, admitted to ICU for NSTEMI and sepsis. #CV -cardiology consulted, Pt's regular behavioral health case manager is Dr. Mullen -troponins downtrending, completed heparin gtt, now on prophylactic heparin subq -congestion on CXR, fluids d/c'd and 80 Lasix given -patient agrees to central line placement under ultrasound guidance if necessary for pressure support -per cardiology, ASA/Plavix , Lipitor, Lovaza, Ranexa -cardiology recommends Entresto if cleared by nephrology -maintain K > 4.5, Mg > 2 -hold further anti-hypertensives #ID -empiric vanc/zosyn given in ED -ID consulted and case discussed -avoid nephrotoxic ABx -cont meropenem as per ID -C diff studies order in light of worsening diarrhea -Pt's faculty dean, Dr. Harley Hall, declines to see patient in ICU -wound care and in-house podiatry consulted -no surgical intervention at this time -wound care and podiatry recommend MRI, however cardiac hardware and renal status preclude contrast MRI study at this time #renal/urology -nephrology following -per nephrology, "Urine Sodium low consistent with volume depletion with preserved tubular function" -Cr above CKD baseline -fluids held d/t pulm congestion -IV Lasix d/t pulm congestion -avoid nephrotoxic agents -patient is becoming incontinent d/t fatigue, agrees to Diaz placement #pulmonary -Pt's will provide home CPAP #endocrinology -tight BGM and SSI q4h #FEN -no IVF, Lasix as needed -monitor and correct electrolytes -diabetic diet #PPx -DVT: heparin subq -GI: Zantac #code -full #dispo -cont to monitor in ICU Visit type - Emergency Visit Emergency Visit: No - New Patient This patient is new to me today: No - Critical Care Critical Care patient: Yes Total Critical Care Time (in minutes): 40 Critical Care Statement: The care of this patient involved high complexity decision making to prevent further life threatening deterioration of the patient 's condition and/or to evaluate & treat vital organ system(s) failure or risk of failure.
--- NOTE | 2018-08-19 09:12 | CONSULT ---
- Consultation REQUESTING PROVIDER: CONSULT REQUEST: We have been asked to surgically evaluate this patient for infected Left 2nd toe PCP:aNvneet Blackburn MD HISTORY OF PRESENT ILLNESS: 57yo M was consulted to the vascular team for evaluation of infected Left 2nd toe. 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 Pt denies previous history of infection in the toe. Denies vascular issues or surgery in the past. Pt states that he does have diabetic neuropathy and has limited feeling in his feet. PMHx: DM, CAD, GERD Home Medications Medication Instructions Recorded Ranolazine [Ranexa] 500 mg PO BID 07/13/13 Ranitidine [Zantac -] 150 mg PO BID 06/19/17 Clonidine Patch [Catapres Tts 0.3 mg TD WEEKLY 06/21/17 Patch -] Aspirin [ASA -] 81 mg PO DAILY 09/28/17 Nitroglycerin [Nitrostat] 0.4 mg SL PRN PRN 09/28/17 Torsemide 1 tab PO DAILY 09/29/17 Carvedilol [Coreg -] 25 mg PO BID #60 tablet 09/30/17 Atorvastatin Ca [Lipitor] 80 mg PO HS 06/01/18 Ergocalciferol (Vitamin D2) 50,000 unit PO WEEKLY 06/01/18 [Vitamin D2] Insulin Lispro [Humalog] 0 unit SQ ASDIR PRN 06/01/18 Sparta-3 Fatty Acids [Sparta-3] 1,000 mg PO BID 06/01/18 Sacubitril/Valsartan [Entresto 49 1 each PO BID 06/01/18 mg-51 mg Tablet] Clopidogrel Bisulfate [Plavix -] 75 mg PO DAILY 30 Days #0 tab 06/08/18 Allergies Allergy/AdvReac Type Severity Reaction Status Date / Time No Known Allergies Allergy Verified 08/17/18 13:51 PHYSICAL EXAM: GENERAL: Awake, alert, and fully oriented, in no acute distress. HEAD: Normal with no signs of trauma. EYES: PERRL, sclera anicteric, conjunctiva clear. NECK: Normal ROM, supple without lymphadenopathy, JVD, or masses. HEART: Regular rate and rhythm. LOWER EXTREMITIES: 2+ pulses, warm, well-perfused. No calf tenderness. + 2 edema b/l. Left foot shows erythema of 2nd toe with purulent drainage from pinhole on distal aspect. NEUROLOGICAL: Normal speech, gait not observed. PSYCH: Cooperative. Good eye contact. Appropriate mood and affect. Vital Signs Temperature 99.7 F H 08/19/18 06:00 Pulse Rate 84 08/19/18 08:00 Respiratory Rate 23 H 08/19/18 08:00 Blood Pressure 133/65 08/19/18 08:00 O2 Sat by Pulse Oximetry (%) 97 08/18/18 21:00 Lab Results WBC 7.4 K/mm3 (4.0-10.0) 08/19/18 05:15 RBC 3.01 M/mm3 (4.00-5.60) L 08/19/18 05:15 Hgb 9.2 GM/dL (11.7-16.9) L 08/19/18 05:15 Hct 27.1 % (35.4-49) L D 08/19/18 05:15 MCV 90.2 fl (80-96) 08/19/18 05:15 MCHC 33.8 g/dl (32.0-35.9) 08/19/18 05:15 RDW 15.8 % (11.9-15.9) 08/19/18 05:15 Plt Count 175 K/MM3 (134-434) D 08/19/18 05:15 Sodium 137 mmol/L (136-145) 08/19/18 05:15 Potassium 4.2 mmol/L (3.5-5.1) 08/19/18 05:15 Chloride 106 mmol/L (98-107) 08/19/18 05:15 Carbon Dioxide 19 mmol/L (21-32) L 08/19/18 05:15 Anion Gap 12 MMOL/L (8-16) 08/19/18 05:15 BUN 72 mg/dL (7-18) H 08/19/18 05:15 Creatinine 4.2 mg/dL (0.55-1.3) H 08/19/18 05:15 Random Glucose 94 mg/dL (74-106) 08/19/18 05:15 Calcium 7.7 mg/dL (8.5-10.1) L 08/19/18 05:15 INR 1.23 (0.83-1.09) H 01/02/19 08:05 Plan -no vascular issues noted at this time, good blood flow, no vascular surgery intervention at this time. -recommend podiatry consult for wound management -consider MRI foot rule out osteo Please contact vascular surgery if any issues Case discussed with Dr. Pablo who agrees with plan Visit type - Case Type Case Type: ED Admission - Emergency Emergency Visit: Yes ED Registration Date: 08/17/18 Care time: The patient presented to the Emergency Department on the above date and was hospitalized for further evaluation of their emergent condition. - New patient This patient is new to me today: Yes Date on this admission: 08/19/18
[2018-08-19] MEDS: OMEGA-3 ACID ETHYL ESTERS (FATTY-ACIDS) 1 GM CAPSULE (FP) PO SCH ×2 (09:49→21:39)
[2018-08-19] MEDS: CARVEDILOL 25 MG TABLET (FP) PO SCH ×2 (09:49→21:39)
[2018-08-19] MEDS: RANITIDINE HCL 150 MG TABLET (FP) PO SCH ×2 (09:50→21:39)
[2018-08-19] MEDS: CLOPIDOGREL BISULFATE 75 MG TABLET (FP) PO SCH (09:50)
[2018-08-19] MEDS: ASPIRIN 81 MG CHEWABLE TABLETS PO SCH (09:50)
[2018-08-19] MEDS: RANOLAZINE E.R. 500 MG TABLET (FP) PO SCH ×2 (09:50→21:39)
[2018-08-19] MEDS: LACTOBACILLUS ACIDOPHILUS 1 TABLET PO SCH (09:50)
[2018-08-19] MEDS: MUPIROCIN 2% TOPICAL OINTMENT FOR DECOLONIZATION NS SCH ×2 (09:51→21:39)
[2018-08-19] MEDS: HEPARIN INFUSION - 25,000 UNITS/500 ML INFUS.BAG IVPB SCH (10:17)
--- NOTE | 2018-08-19 11:44 | PN ---
Progress Note, Physician History of Present Illness: More dyspneic today, febrile overnight. Episodes of NSVT. - Current Medication List Current Medications: Active Medications Acetaminophen (Tylenol -) 650 mg PO Q4H PRN PRN Reason: FEVER Aspirin (Asa -) 81 mg PO DAILY [facility] Last Admin: 08/19/18 09:50 Dose: 81 mg Atorvastatin Calcium (Lipitor -) 80 mg PO HS [facility] Last Admin: 08/18/18 21:08 Dose: 80 mg Carvedilol (Coreg -) 25 mg PO BID [facility] Last Admin: 08/19/18 09:49 Dose: 25 mg Chlorhexidine Gluconate (Hibiclens For Decolonization -) 1 applic TP HS [facility] Last Admin: 08/18/18 21:08 Dose: 1 applic Clonidine HCl (Catapres Tts Patch -) 0.3 mg TD Q7D [facility] Last Admin: 08/18/18 11:29 Dose: 0.3 mg Clopidogrel Bisulfate (Plavix -) 75 mg PO DAILY [facility] Last Admin: 08/19/18 09:50 Dose: 75 mg Heparin Sodium (Porcine) (Heparin -) 1,000 unit IVPUSH PRN PRN PRN Reason: Heparin Last Admin: 08/18/18 09:36 Dose: 1,000 unit Heparin Sodium (Porcine) (Heparin -) 5,000 unit IVPUSH PRN PRN PRN Reason: Heparin Last Admin: 08/18/18 17:32 Dose: 5,000 unit Heparin Sodium/Dextrose (Heparin Infusion -) 25,000 units in 500 mls @ 20 mls/ hr IVPB TITR [facility]; Protocol Last Admin: 08/19/18 10:17 Dose: 1,400 units/hr, 28 mls/hr Meropenem 500 mg/ Dextrose 100 mls @ 200 mls/hr IVPB Q12H [facility] Last Admin: 08/19/18 06:24 Dose: 200 mls/hr Lactated Ringer's (Lactated Ringers Solution) 1,000 ml in 1,000 mls @ 42 mls/ hr IV ASDIR [facility] Last Admin: 08/19/18 07:30 Dose: 42 mls/hr Insulin Aspart (Novolog Vial Sliding Scale -) 1 vial SQ ACHS [facility]; Protocol Last Admin: 08/19/18 08:54 Dose: Not Given Lactobacillus Acidophilus (Bacid -) 1 tab PO DAILY [facility] Last Admin: 08/19/18 09:50 Dose: 1 tab Mupirocin (Bactroban Ointment (For Decolonization) -) 1 applic NS BID [facility] Stop: 08/22/18 21:59 Last Admin: 08/19/18 09:51 Dose: 1 applic Kyjwp-0-[id number] Ethyl Esters (Lovaza -) 2 gm PO BID [facility] Last Admin: 08/19/18 09:49 Dose: 2 gm Ranitidine HCl (Zantac -) 150 mg PO BID [facility] Last Admin: 08/19/18 09:50 Dose: 150 mg Ranolazine (Ranexa -) 500 mg PO BID [facility] Last Admin: 08/19/18 09:50 Dose: 500 mg - Objective Vital Signs: Vital Signs Temperature 99.5 F 08/19/18 10:00 Pulse Rate 63 08/19/18 10:00 Respiratory Rate 30 H 08/19/18 10:00 Blood Pressure 130/43 L 08/19/18 10:00 O2 Sat by Pulse Oximetry (%) 97 08/19/18 09:00 Constitutional: Yes: No Distress, Calm Neck: Yes: Supple Cardiovascular: Yes: Regular Rate and Rhythm Respiratory: Yes: Regular, Diminished, On Nasal O2 Gastrointestinal: Yes: Soft, Hypoactive Bowel Sounds Edema: No Labs: CBC, BMP 08/19/18 05:15 08/19/18 05:15 INR, PTT INR 1.23 (0.83-1.09) H 08/18/18 08:05 - ....Imaging EKG: Report Reviewed (Tele: NSVT) Problem List - Problems (1) NSTEMI (non-ST elevated myocardial infarction) Code(s): I21.4 - NON-ST ELEVATION (NSTEMI) MYOCARDIAL INFARCTION (2) Sepsis Code(s): A41.9 - SEPSIS, UNSPECIFIED ORGANISM Qualifiers: Sepsis type: sepsis due to unspecified organism Qualified Code(s): A41.9 - Sepsis, unspecified organism (3) Acute on chronic kidney failure Code(s): N17.9 - ACUTE KIDNEY FAILURE, UNSPECIFIED; N18.9 - CHRONIC KIDNEY DISEASE, UNSPECIFIED Qualifiers: Acute renal failure type: unspecified Chronic kidney disease stage: unspecified stage Qualified Code(s): N17.9 - Acute kidney failure, unspecified ; N18.9 - Chronic kidney disease, unspecified (4) Acute on chronic systolic (congestive) heart failure Code(s): I50.23 - ACUTE ON CHRONIC SYSTOLIC (CONGESTIVE) HEART FAILURE (5) Dyspnea due to congestive heart failure Code(s): I50.9 - HEART FAILURE, UNSPECIFIED (6) Elevated troponin Code(s): R79.89 - OTHER SPECIFIED ABNORMAL FINDINGS OF BLOOD CHEMISTRY (7) HLD (hyperlipidemia) Code(s): E78.5 - HYPERLIPIDEMIA, UNSPECIFIED Qualifiers: Hyperlipidemia type: pure hypercholesterolemia Qualified Code(s): E78.00 - Pure hypercholesterolemia, unspecified (8) HTN (hypertension) Code(s): I10 - ESSENTIAL (PRIMARY) HYPERTENSION Qualifiers: Hypertension type: essential hypertension Qualified Code(s): I10 - Essential (primary) hypertension (9) History of coronary artery stent placement Code(s): Z95.5 - PRESENCE OF CORONARY ANGIOPLASTY IMPLANT AND GRAFT (10) Hx of CABG Code(s): Z95.1 - PRESENCE OF AORTOCORONARY BYPASS GRAFT (11) ICD (implantable cardioverter-defibrillator) in place Code(s): Z95.810 - PRESENCE OF AUTOMATIC (IMPLANTABLE) CARDIAC DEFIBRILLATOR (12) Systolic heart failure Code(s): I50.20 - UNSPECIFIED SYSTOLIC (CONGESTIVE) HEART FAILURE Qualifiers: Heart failure chronicity: acute on chronic Qualified Code(s): I50.23 - Acute on chronic systolic (congestive) heart failure Assessment/Plan 08/18/2018 Echo: Poor windows 1. Elevated troponin likely represents demand ischemia with underlying history of systolic LV dysfunction and CKD 2. CKD stage 4 with diabetic nephropathy 3. LV systolic dysfunction, euvolemic 4. Aortic valve disease/ 5. CAD, history of DE, s/p CABG, s/p PCI/stent, angina pectoris 6. HTN 7. Hypercholesterolemia 8. Post ICD implant for primary prophylaxis 9. Anemia 10. Gout 11. OSAS on CPAP 12. Sepsis referable to left foot wound 13. IDDM on insulin pump 14. Probable Sleep Disordered Breathing 15. NSVT PLAN: 1. Empiric antibiotics coverage f/u C&S 2. D/c Heparin gtt as troponin trending down 3. Continue ASA 81 qd and Plavix 75 qd 4. Continue Ranexa 500 bid 5. Resume Carvedilol 25 mg BID 6. Resume Entresto 49/51 mg BID once renal function stabilized 7. Continue Lipitor 80 qhs and Lovaza 2 bid 8. Clonidine 0.3 TD Q7D 9. Echocardiography report noted. Will review images 10. Continue ICU monitoring, keep K>4.5 Mg>2.5
[2018-08-19] MEDS ORDERED: MAGNESIUM SULF 50% (8.12 MEQ/2 ML-1 GM VIAL) ONE (11:50)
[2018-08-19] MEDS: MAGNESIUM SULF 50% (8.12 MEQ/2 ML-1 GM VIAL) IVPB ONE ×2 (11:51→13:00)
--- NOTE | 2018-08-19 12:12 | PN ---
Teaching Attending Note Name of Resident: Ramesh Rm ATTENDING PHYSICIAN STATEMENT I saw and evaluated the patient. I reviewed the resident's note and discussed the case with the resident. I agree with the resident's findings and plan as documented. SUBJECTIVE: Patient seen and examined in the ICU. Awake and alert. More SOB today. CXR reveals increasing vascular congestion. Periodic episodes of VT but ICD has been triggered. Cardiology at the bedside. Reports use of CPAP at night ( brought device in today). OBJECTIVE: Intake & Output 08/16/18 08/17/18 08/18/18 08/19/18 23:59 23:59 23:59 23:59 Intake Total 2200 4755 1936 Output Total 200 1800 200 Balance 1999 2955 1736 Weight 288 lb 288 lb 12.889 oz 293 lb 11.2 oz Last Vital Signs Temp Pulse Resp BP Pulse Ox 99.5 F 63 30 H 130/43 L 97 08/19/18 10:00 08/19/18 10:00 08/19/18 10:00 08/19/18 10:00 08/19/18 09:00 Active Medications Acetaminophen (Tylenol -) 650 mg PO Q4H PRN PRN Reason: FEVER Aspirin (Asa -) 81 mg PO DAILY [facility] Last Admin: 08/19/18 09:50 Dose: 81 mg Atorvastatin Calcium (Lipitor -) 80 mg PO HS [facility] Last Admin: 08/18/18 21:08 Dose: 80 mg Carvedilol (Coreg -) 25 mg PO BID [facility] Last Admin: 08/19/18 09:49 Dose: 25 mg Chlorhexidine Gluconate (Hibiclens For Decolonization -) 1 applic TP HS [facility] Last Admin: 08/18/18 21:08 Dose: 1 applic Clonidine HCl (Catapres Tts Patch -) 0.3 mg TD Q7D [facility] Last Admin: 08/18/18 11:29 Dose: 0.3 mg Clopidogrel Bisulfate (Plavix -) 75 mg PO DAILY [facility] Last Admin: 08/19/18 09:50 Dose: 75 mg Heparin Sodium (Porcine) (Heparin -) 1,000 unit IVPUSH PRN PRN PRN Reason: Heparin Last Admin: 08/18/18 09:36 Dose: 1,000 unit Heparin Sodium (Porcine) (Heparin -) 5,000 unit IVPUSH PRN PRN PRN Reason: Heparin Last Admin: 08/18/18 17:32 Dose: 5,000 unit Meropenem 500 mg/ Dextrose 100 mls @ 200 mls/hr IVPB Q12H [facility] Last Admin: 08/19/18 06:24 Dose: 200 mls/hr Lactated Ringer's (Lactated Ringers Solution) 1,000 ml in 1,000 mls @ 42 mls/ hr IV ASDIR [facility] Last Admin: 08/19/18 07:30 Dose: 42 mls/hr Insulin Aspart (Novolog Vial Sliding Scale -) 1 vial SQ ACHS [facility]; Protocol Last Admin: 08/19/18 08:54 Dose: Not Given Lactobacillus Acidophilus (Bacid -) 1 tab PO DAILY [facility] Last Admin: 08/19/18 09:50 Dose: 1 tab Mupirocin (Bactroban Ointment (For Decolonization) -) 1 applic NS BID [facility] Stop: 08/22/18 21:59 Last Admin: 08/19/18 09:51 Dose: 1 applic [id number]-0-[id number] Ethyl Esters (Lovaza -) 2 gm PO BID [facility] Last Admin: 08/19/18 09:49 Dose: 2 gm Ranitidine HCl (Zantac -) 150 mg PO BID [facility] Last Admin: 08/19/18 09:50 Dose: 150 mg Ranolazine (Ranexa -) 500 mg PO BID [facility] Last Admin: 08/19/18 09:50 Dose: 500 mg GENERAL: A&Ox3, Mildly tachypneic at rest HEAD: NC/AT EYES: PERRLA, EOMI EARS, NOSE, THROAT: MMM NECK: Normal range of motion, supple without lymphadenopathy, JVD, or masses. LUNGS: bibasilar rhonchi HEART: Paced rhythm, no m/r/g ABDOMEN: (+) BS, soft, NT, ND UPPER EXTREMITIES: 2+ pulses, warm, well-perfused. No cyanosis. No clubbing. Cap refill <2 seconds. No peripheral edema. LOWER EXTREMITIES: Erythema of left second toe, slightly progressive changes NEUROLOGICAL: Non-focal PSYCHIATRIC: Cooperative. Good eye contact. Appropriate mood and affect. Laboratory Results - last 24 hr 08/18/18 08/18/18 08/18/18 10:55 15:00 17:40 WBC RBC Hgb Hct MCV MCH MCHC RDW Plt Count MPV Absolute Neuts (auto) Neutrophils % Lymphocytes % Monocytes % Eosinophils % Basophils % Nucleated RBC % PTT (Actin FS) 32.9 Sodium Potassium Chloride Carbon Dioxide Anion Gap BUN Creatinine Creat Clearance w eGFR POC Glucometer 95.51704 352.17744 Random Glucose Hemoglobin A1c % Calcium Phosphorus Magnesium Total Bilirubin AST ALT Alkaline Phosphatase Creatine Kinase Creatine Kinase Index CK-MB (CK-2) Troponin I Total Protein Albumin 08/18/18 08/19/18 08/19/18 21:10 05:15 05:15 WBC 7.4 RBC 3.01 L Hgb 9.2 L Hct 27.1 L D MCV 90.2 MCH 30.5 MCHC 33.8 RDW 15.8 Plt Count 175 D MPV 7.3 L Absolute Neuts (auto) 6.1 Neutrophils % 81.6 Lymphocytes % 8.5 Monocytes % 8.8 Eosinophils % 0.6 D Basophils % 0.5 Nucleated RBC % 0 PTT (Actin FS) 65.7 H 51.9 H Sodium Potassium Chloride Carbon Dioxide Anion Gap BUN Creatinine Creat Clearance w eGFR POC Glucometer Random Glucose Hemoglobin A1c % Calcium Phosphorus Magnesium Total Bilirubin AST ALT Alkaline Phosphatase Creatine Kinase Creatine Kinase Index CK-MB (CK-2) Troponin I Total Protein Albumin 08/19/18 08/19/18 08/19/18 05:15 05:15 05:15 WBC RBC Hgb Hct MCV MCH MCHC RDW Plt Count MPV Absolute Neuts (auto) Neutrophils % Lymphocytes % Monocytes % Eosinophils % Basophils % Nucleated RBC % PTT (Actin FS) Sodium 137 Potassium 4.2 Chloride 106 Carbon Dioxide 19 L Anion Gap 12 BUN 72 H Creatinine 4.2 H Creat Clearance w eGFR 14.75 POC Glucometer Random Glucose 94 Hemoglobin A1c % 6.0 Calcium 7.7 L Phosphorus 4.6 Magnesium 1.9 Total Bilirubin 0.8 AST 83 H ALT 41 Alkaline Phosphatase 77 Creatine Kinase 402 H Creatine Kinase Index 2.8 CK-MB (CK-2) 11.6 H Troponin I 19.10 H* Total Protein 6.7 Albumin 2.5 L ASSESSMENT/PLAN: Sepsis due to suspected skin infection IDDM on insulin pump HTN HLD CAD S/P CABG S/P AICD CHF Aortic stenosis CKD NSTEMI Sleep Disordered Breathing ABX per ID O2 as needed Follow cultures Hold IVF Continue Coreg D/C Clonidine Can D/C Heparin drip ASA Plavix Podiatry evaluation VTE prophylaxis Glycemic control CPAP QHS and PRN May need central access and pressors ICU monitoring Dr López Critical care time spent in reviewing chart, evaluating patient and formulating plan - 36 minutes
[2018-08-19] MEDS ORDERED: MAGNESIUM SULF 50% (8.12 MEQ/2 ML-1 GM VIAL) IVPB ONE (12:20)
--- NOTE | 2018-08-19 12:24 | CONSULT ---
Consult - text type - Consultation Consultation Note: Podiatry Consultation: Pleasant 57 year old diabetic male seen and evaluated at bedside in ICU with family members. Patient notes increased redness/swelling to the left second toe of 2 weeks duration. Patient was seen by his local leather sponger at that time for routine nail care and a small area of the skin was clipped. He noted redness/swelling secondary to that. He also complains of chills of 1-2 days duration. Currently with low grade temp. PMHx: Aortic Stenosis, CAD, CHF, HTN, Hyperlipdemia, [place], Mitral Insufficiency, Other (ICD implant), CKD Meds: noted ALL: NKMA LISA: L foot: pedal pulses 1/4, TG warm-warm, CFT delayed to second digit 3-4 seconds. There is a contracture second digit at the PIPJ and DIPJ. There is a small diabetic ulcer at the proximal nail fold with purulent drainage, probes about 1.0 cm, no soft tissue crepitus. No tenderness to palpation. Erythema to the digit. WBC: 7.4 Blood Cx: no growth x 24 hrs L foot XR: no evidence of air, osteomyelitis Imp: 57 year old diabetic male with left second digit diabetic infection r/o osteomyelitis 1. IV abx per ID 2. Bactroban + DSD L 2nd toe 3. Recommend MRI vs. bone scan to rule out osteomyelitis second digit. Not medically stable at this point for any operative management. Will f/u results of advanced imaging and go from there. 4. Thank you for the courtesy of this consultation. Maged Burgos DPM
--- NOTE | 2018-08-19 12:55 | PN ---
Progress Note (short form) - Note Progress Note: Renal follow up for HECTOR on CKD Pt seen and examined at the bedside complains of sob no cp, abd pain + chills making urine Vital Signs Temperature 99.5 F 08/19/18 10:00 Pulse Rate 70 08/19/18 12:00 Respiratory Rate 24 H 08/19/18 12:00 Blood Pressure 127/52 L 08/19/18 12:00 O2 Sat by Pulse Oximetry (%) 97 08/19/18 09:00 Intake & Output 08/16/18 08/17/18 08/18/18 08/19/18 23:59 23:59 23:59 23:59 Intake Total 2200 4755 1936 Output Total 200 1800 200 Balance 1999 2955 1736 Weight 130.635 kg 131 kg 133.22 kg NAD awake and alert + LE edema CBC, BMP 08/19/18 05:15 08/19/18 05:15 Current Medications Acetaminophen (Tylenol -) 650 mg PO Q4H PRN PRN Reason: FEVER Aspirin (Asa -) 81 mg PO DAILY [facility] Last Admin: 08/19/18 09:50 Dose: 81 mg Atorvastatin Calcium (Lipitor -) 80 mg PO HS [facility] Last Admin: 08/18/18 21:08 Dose: 80 mg Carvedilol (Coreg -) 25 mg PO BID [facility] Last Admin: 08/19/18 09:49 Dose: 25 mg Chlorhexidine Gluconate (Hibiclens For Decolonization -) 1 applic TP HS [facility] Last Admin: 08/18/18 21:08 Dose: 1 applic Clopidogrel Bisulfate (Plavix -) 75 mg PO DAILY [facility] Last Admin: 08/19/18 09:50 Dose: 75 mg Heparin Sodium (Porcine) (Heparin -) 5,000 unit SQ TID [facility] Meropenem 500 mg/ Dextrose 100 mls @ 200 mls/hr IVPB Q12H [facility] Last Admin: 08/19/18 06:24 Dose: 200 mls/hr Insulin Aspart (Novolog Vial Sliding Scale -) 1 vial SQ Q4H [facility]; Protocol Lactobacillus Acidophilus (Bacid -) 1 tab PO DAILY [facility] Last Admin: 08/19/18 09:50 Dose: 1 tab Mupirocin (Bactroban Ointment (For Decolonization) -) 1 applic NS BID [facility] Stop: 01/06/19 21:59 Last Admin: 08/19/18 09:51 Dose: 1 applic Mupirocin (Bactroban 2% Ointment -) 1 applic TP DAILY [facility] [id number]-[id number] Ethyl Esters (Lovaza -) 2 gm PO BID [facility] Last Admin: 08/19/18 09:49 Dose: 2 gm Ranitidine HCl (Zantac -) 150 mg PO BID [facility] Last Admin: 08/19/18 09:50 Dose: 150 mg Ranolazine (Ranexa -) 500 mg PO BID [facility] Last Admin: 08/19/18 09:50 Dose: 500 mg 57 year old gentleman with hx of 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 #HECTOR on CKD secondary to renal hypoprofuison in setting of sepsis vs. obstruction #Sepsis syndrome from soft tissue infection r/o bacteremia #NSTEMI vs. Demand ischemia #Acute on chronic anemia #Hx of Hypertension #Lactic acidosis now resolved #Hypocalcemia Urine Sodium low consistent with volume depletion with preserved tubular function Renal function overall stable, pt is non-oliguric given evidence of volume overload holding IVF, can give Lasix as needed maintain MAP > 65 Cardiology follow up Abx as per DANO Pendleton DO
[2018-08-19] MEDS ORDERED: FUROSEMIDE 40 MG/4 ML INJECTABLE VIAL IVPUSH ONE (13:15)
[2018-08-19] MEDS: HEPARIN NA (PORCINE) 5,000 UNITS/ML 1ML VIAL SQ SCH ×2 (13:55→21:39)
[2018-08-19] MEDS ORDERED: POTASSIUM CHLORIDE TABS 20 MEQ TABLET.ER (FP) PO ONE (14:02)
[2018-08-19] MEDS: ACETAMINOPHEN 325 MG TABLET (FP) PO PRN (15:07)
--- NOTE | 2018-08-19 15:14 | CONSULT ---
Consult Consult Specialty:: Endocrinology Referred by:: Dr López Reason for Consultation:: Hyperglycemia - History of Present Illness Chief Complaint: Fever chills History of Present Illness: This is a 57 year old male with h/o T2DM, Retinopathy with left eye blindness , HLD, CKD who presented to ED with c/o shivering and shaking for 24 hours. He was seen by his tools administrator 1-2 weeks ago and his toenails were clipped. This visit he was accidentally cut on his toe. He says it did not bother him, however 4 days ago it began to get red. However it was not at the site of the cut but on the other side of the tip of the toe. Pt was admitted to ICU and treated with IV Abx. Pt referred for management of blood sugar. Pt on Insulin pump as outpt. Settings as follows: Basal MN to 6AM 1.6 6AM to 6 PM 2.0 6PM to Mn 1.6. Does manual bolus: 100 to 200: 12 200 to 300: 16 >300 25. Pt currently off the pump as pt has not been eating much. 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 History of Recent Travel: No Home Medications - Allergies Allergies/Adverse Reactions: Allergies Allergy/AdvReac Type Severity Reaction Status Date / Time No Known Allergies Allergy Verified 08/17/18 13:51 - Home Medications Home Medications: Ambulatory Orders Ranolazine [Ranexa] 500 mg PO BID 07/13/13 Ranitidine [Zantac -] 150 mg PO BID 06/19/17 Clonidine Patch [Catapres Tts Patch -] 0.3 mg TD WEEKLY 06/21/17 Aspirin [ASA -] 81 mg PO DAILY 09/28/17 Nitroglycerin [Nitrostat] 0.4 mg SL PRN PRN 09/28/17 Torsemide 1 tab PO DAILY 09/29/17 Carvedilol [Coreg -] 25 mg PO BID #60 tablet 09/30/17 Atorvastatin Ca [Lipitor] 80 mg PO HS 06/01/18 Ergocalciferol (Vitamin D2) [Vitamin D2] 50,000 unit PO WEEKLY 06/01/18 Insulin Lispro [Humalog] 0 unit SQ ASDIR PRN 06/01/18 [place]-3 Fatty Acids [[place]-3] 1,000 mg PO BID 06/01/18 Sacubitril/Valsartan [Entresto 49 mg-51 mg Tablet] 1 each PO BID 06/01/18 Clopidogrel Bisulfate [Plavix -] 75 mg PO DAILY 30 Days #0 tab 06/08/18 Family Disease History - Family Disease History Family Disease History: Diabetes: Mother (), Brother, Heart Disease: Mother, Brother Review of Systems - Review of Systems Constitutional: reports: Malaise Eyes: reports: No Symptoms HENT: reports: No Symptoms Neck: reports: No Symptoms Cardiovascular: reports: No Symptoms Respiratory: reports: No Symptoms Gastrointestinal: reports: No Symptoms Genitourinary: reports: No Symptoms Integumentary: reports: No Symptoms Neurological: reports: No Symptoms Endocrine: reports: No Symptoms Physical Exam Vital Signs: Vital Signs Temperature 99.5 F 08/19/18 10:00 Pulse Rate 102 H 08/19/18 14:00 Respiratory Rate 30 H 08/19/18 14:00 Blood Pressure 157/81 08/19/18 14:00 O2 Sat by Pulse Oximetry (%) 97 08/19/18 09:00 Constitutional: Yes: No Distress, Calm Eyes: Yes: Conjunctiva Clear HENT: Yes: Atraumatic, Normocephalic Neck: Yes: Supple, Trachea Midline Cardiovascular: Yes: Regular Rate and Rhythm Respiratory: Yes: Regular, CTA Bilaterally Gastrointestinal: Yes: Normal Bowel Sounds Musculoskeletal: Yes: WNL Extremities: Yes: Other (Erythema left 2nd toe) Edema: No Neurological: Yes: Alert, Oriented Labs: CBC, BMP 08/19/18 05:15 08/19/18 05:15 Imaging - Results Chest X-ray: Report Reviewed X-ray: Report Reviewed Assessment/Plan AP Left 2nd toe cellulitis Sepsis T2DM On Insulin pump at home CKD HLD CAD/Elevated Troponins: Probably secondary to demand ischemia BGM Q 4 hr Novolog SS coverage Hold Insulin pump and long acting Insulin for now as food intake is inadequate. IV abx Bone scan or MRI to R/O Osteo Will f/u
[2018-08-19] MEDS: guaiFENesin/CODEINE 5 ML UNIT-DOSE CUPS PO PRN (15:25)
--- NOTE | 2018-08-19 16:12 | PN ---
Physical Exam: SUBJECTIVE: Patient seen and examined at bed side this morning. Lying in bed, complaining of shortness of breath and not feeling well. Tmax 101.2 F. On tele, had episodes of non sustained Vtach. OBJECTIVE: Vital Signs Period Temp Pulse Resp BP Sys/Gallo Pulse Ox Last 24 Hr 98.1 F-101.8 F 63-102 17-30 102-157/43-81 97-97 GENERAL: Morbidly obese male, sitting in bed, eating lunch, patient is awake, alert, and fully oriented, in no acute distress. HEAD: Normal with no signs of trauma. EYES: EOM Intact, no pallor or icterus. ENT: Ears normal, moist mucous membranes. NECK: Supple, No JVD LUNGS: Bibasilar crackles. HEART: Regular rate and rhythm, S1, S2 with soft systolic murmur. ABDOMEN: Soft, nontender, no organomegaly. UPPER EXTREMITIES: 2+ pulses, warm, well-perfused, no edema. LOWER EXTREMITIES: Left second toe-erythema +, mildly tender to touch. B/L pitting edema. NEUROLOGICAL: No facial droop. Normal speech, gait not observed. PSYCH: Normal mood, normal affect. SKIN: Warm, dry, normal turgor, no rashes or lesions noted Laboratory Results - last 24 hr 08/18/18 08/18/18 08/19/18 17:40 21:10 05:15 WBC RBC Hgb Hct MCV MCH MCHC RDW Plt Count MPV Absolute Neuts (auto) Neutrophils % Lymphocytes % Monocytes % Eosinophils % Basophils % Nucleated RBC % PTT (Actin FS) 65.7 H 51.9 H Sodium Potassium Chloride Carbon Dioxide Anion Gap BUN Creatinine Creat Clearance w eGFR POC Glucometer [id number] Random Glucose Hemoglobin A1c % Calcium Phosphorus Magnesium Total Bilirubin AST ALT Alkaline Phosphatase Creatine Kinase Creatine Kinase Index CK-MB (CK-2) Troponin I Total Protein Albumin Urine Protein Ur Random Sodium Urine Creatinine 08/19/18 08/19/18 08/19/18 05:15 05:15 05:15 WBC 7.4 RBC 3.01 L Hgb 9.2 L Hct 27.1 L D MCV 90.2 MCH 30.5 MCHC 33.8 RDW 15.8 Plt Count 175 D MPV 7.3 L Absolute Neuts (auto) 6.1 Neutrophils % 81.6 Lymphocytes % 8.5 Monocytes % 8.8 Eosinophils % 0.6 D Basophils % 0.5 Nucleated RBC % 0 PTT (Actin FS) Sodium 137 Potassium 4.2 Chloride 106 Carbon Dioxide 19 L Anion Gap 12 BUN 72 H Creatinine 4.2 H Creat Clearance w eGFR 14.75 POC Glucometer Random Glucose 94 Hemoglobin A1c % 6.0 Calcium 7.7 L Phosphorus 4.6 Magnesium 1.9 Total Bilirubin 0.8 AST 83 H ALT 41 Alkaline Phosphatase 77 Creatine Kinase Creatine Kinase Index CK-MB (CK-2) Troponin I Total Protein 6.7 Albumin 2.5 L Urine Protein Ur Random Sodium Urine Creatinine 08/19/18 08/19/18 08/19/18 05:15 12:00 12:00 WBC RBC Hgb Hct MCV MCH MCHC RDW Plt Count MPV Absolute Neuts (auto) Neutrophils % Lymphocytes % Monocytes % Eosinophils % Basophils % Nucleated RBC % PTT (Actin FS) Sodium Potassium Chloride Carbon Dioxide Anion Gap BUN Creatinine Creat Clearance w eGFR POC Glucometer Random Glucose Hemoglobin A1c % Calcium Phosphorus Magnesium Total Bilirubin AST ALT Alkaline Phosphatase Creatine Kinase 402 H Creatine Kinase Index 2.8 CK-MB (CK-2) 11.6 H Troponin I 19.10 H* Total Protein Albumin Urine Protein Ur Random Sodium 34 L Urine Creatinine 75.0 H 08/19/18 12:00 WBC RBC Hgb Hct MCV MCH MCHC RDW Plt Count MPV Absolute Neuts (auto) Neutrophils % Lymphocytes % Monocytes % Eosinophils % Basophils % Nucleated RBC % PTT (Actin FS) Sodium Potassium Chloride Carbon Dioxide Anion Gap BUN Creatinine Creat Clearance w eGFR POC Glucometer Random Glucose Hemoglobin A1c % Calcium Phosphorus Magnesium Total Bilirubin AST ALT Alkaline Phosphatase Creatine Kinase Creatine Kinase Index CK-MB (CK-2) Troponin I Total Protein Albumin Urine Protein 128 H Ur Random Sodium Urine Creatinine Active Medications Generic Name Dose Route Start Last Admin Trade Name Freq PRN Reason Stop Dose Admin Acetaminophen 650 mg 08/17/18 18:08 08/19/18 15:07 Tylenol - PO 650 mg Q4H PRN Administration FEVER Aspirin 81 mg 08/18/18 10:00 08/19/18 09:50 Asa - PO 81 mg DAILY [facility] Administration Atorvastatin Calcium 80 mg 08/17/18 22:00 08/18/18 21:08 Lipitor - PO 80 mg HS [facility] Administration Carvedilol 25 mg 08/18/18 22:00 08/19/18 09:49 Coreg - PO 25 mg BID [facility] Administration Chlorhexidine Gluconate 1 applic 08/17/18 22:00 08/18/18 21:08 Hibiclens For Decolonization - TP 1 applic HS [facility] Administration Clopidogrel Bisulfate 75 mg 08/18/18 10:00 08/19/18 09:50 Plavix - PO 75 mg DAILY [facility] Administration Guaifenesin/Codeine Phosphate 5 ml 08/19/18 15:05 08/19/18 15:25 Robitussin Ac - PO 5 ml Q8H PRN Administration COUGH Heparin Sodium (Porcine) 5,000 unit 08/19/18 14:00 08/19/18 13:55 Heparin - SQ 5,000 unit TID [facility] Administration Meropenem 500 mg/ Dextrose 100 mls @ 200 mls/hr 08/17/18 18:45 08/19/18 06:24 IVPB 200 mls/hr Q12H [facility] Administration Insulin Aspart 1 vial 08/19/18 13:00 08/19/18 14:36 Novolog Vial Sliding Scale - SQ Not Given Q4H [facility] Protocol Lactobacillus Acidophilus 1 tab 08/19/18 10:00 08/19/18 09:50 Bacid - PO 1 tab DAILY [facility] Administration Mupirocin 1 applic 08/17/18 22:00 08/19/18 09:51 Bactroban Ointment (For Decolonization) - NS 08/22/18 21:59 1 applic BID [facility] Administration Mupirocin 1 applic 08/20/18 10:00 Bactroban 2% Ointment - TP DAILY [facility] Sxisl-0-Ppti Ethyl Esters 2 gm 08/17/18 22:00 08/19/18 09:49 Lovaza - PO 2 gm BID [facility] Administration Ranitidine HCl 150 mg 08/17/18 22:00 08/19/18 09:50 Zantac - PO 150 mg BID [facility] Administration Ranolazine 500 mg 08/17/18 22:00 08/19/18 09:50 Ranexa - PO 500 mg BID [facility] Administration ECHO 08/18/18: Left ventricular size, thickness, function normal. Left atrium and right atrium mildly dilated. Moderate Aortic stenosis. Trace TR. Right ventricular systolic pressure 40-50 mmHg. Left toe xray-No acute pathology. ASSESSMENT/PLAN: ASSESSMENT/PLAN: Patient is a 57 year old male with significant PMHx IDDM (on insulin pump), HTN , HLD, CAD s/p CABG and s/p AICD, CHF, Aortic stenosis, CKD, p/w fever, rigors, malaise x 1 day, admitted to ICU for NSTEMI and sepsis. # Sepsis likely secondary to Left second digit cellulitis r/o osteomyelitis Admitted in ICU for septic shock now resolved with IV fluid. Erythema on the left foot, infected Left LE second digit, likely source is the skin. Continue IV Merepenem 500mg BID (renally adjusted) IV Vanc 1250mg given once, check van trough in AM. Blood cultures neg. Urine cultures negative Podiatry consult appreciated, once medically stable, recommends Bone scan to r/o osteomyelitis. # NSTEMI: trops trending down. Discontinue Heparin Drip. Continue Statin 80 mg HS Continue Aspirin 81 mg/Plavix Echo reviewed. Report as above Will probably need a cath once medically optimized Cardiology on board. # Volume overload Trial of IV Lasix 80mg once given today. Will reasses in Am if he requires more lasix. # HECTOR on CKD likely secondary to hypoperfusion from Sepsis Creatiine 4.4--> 4.2 Avoid nephrotoxic drugs Renal on board # HTN-admitted with septic shock responded to IV fluids, now resume COreg 25 mg PO BID # DM Uses Insulin pump at home. Continue ISS, BGMs, watch for hypoglycemic episodes # FEN D/c IV fluids. Electrolytes: Hypomg, now repleted Diabetic diet # Prophylaxis For DVT: Already on Heparin drip For GI: Ranitidine 150 mg BID # Code Status: Full Code # Dispo: Continue to monitor in ICU. Illness, Investigation and Plan of care explained to the patient. He verbalized understanding. Case discussed with Dr. Blackburn. Visit type - Emergency Visit Emergency Visit: Yes ED Registration Date: 08/17/18 Care time: The patient presented to the Emergency Department on the above date and was hospitalized for further evaluation of their emergent condition. - New Patient This patient is new to me today: No - Critical Care Critical Care patient: No - Discharge Referral Referred to [facility] No
--- NOTE | 2018-08-19 16:37 | PN ---
Progress Note, Physician History of Present Illness: Awake Supine in bed No c/o foot pain Temp elevation noted Cultures prelim no growth - Current Medication List Current Medications: Active Medications Acetaminophen (Tylenol -) 650 mg PO Q4H PRN PRN Reason: FEVER Last Admin: 08/19/18 15:07 Dose: 650 mg Aspirin (Asa -) 81 mg PO DAILY [facility] Last Admin: 08/19/18 09:50 Dose: 81 mg Atorvastatin Calcium (Lipitor -) 80 mg PO HS [facility] Last Admin: 08/18/18 21:08 Dose: 80 mg Carvedilol (Coreg -) 25 mg PO BID [facility] Last Admin: 08/19/18 09:49 Dose: 25 mg Chlorhexidine Gluconate (Hibiclens For Decolonization -) 1 applic TP HS [facility] Last Admin: 08/18/18 21:08 Dose: 1 applic Clopidogrel Bisulfate (Plavix -) 75 mg PO DAILY [facility] Last Admin: 08/19/18 09:50 Dose: 75 mg Guaifenesin/Codeine Phosphate (Robitussin Ac -) 5 ml PO Q8H PRN PRN Reason: COUGH Last Admin: 08/19/18 15:25 Dose: 5 ml Heparin Sodium (Porcine) (Heparin -) 5,000 unit SQ TID [facility] Last Admin: 08/19/18 13:55 Dose: 5,000 unit Meropenem 500 mg/ Dextrose 100 mls @ 200 mls/hr IVPB Q12H [facility] Last Admin: 08/19/18 06:24 Dose: 200 mls/hr Insulin Aspart (Novolog Vial Sliding Scale -) 1 vial SQ Q4H [facility]; Protocol Last Admin: 08/19/18 14:36 Dose: Not Given Lactobacillus Acidophilus (Bacid -) 1 tab PO DAILY [facility] Last Admin: 08/19/18 09:50 Dose: 1 tab Mupirocin (Bactroban Ointment (For Decolonization) -) 1 applic NS BID [facility] Stop: 08/22/18 21:59 Last Admin: 08/19/18 09:51 Dose: 1 applic Mupirocin (Bactroban 2% Ointment -) 1 applic TP DAILY [facility] [id number] Ethyl Esters (Lovaza -) 2 gm PO BID [facility] Last Admin: 08/19/18 09:49 Dose: 2 gm Ranitidine HCl (Zantac -) 150 mg PO BID [facility] Last Admin: 08/19/18 09:50 Dose: 150 mg Ranolazine (Ranexa -) 500 mg PO BID [facility] Last Admin: 08/19/18 09:50 Dose: 500 mg - Objective Vital Signs: Vital Signs Temperature 99.5 F 08/19/18 10:00 Pulse Rate 102 H 08/19/18 14:00 Respiratory Rate 30 H 08/19/18 14:00 Blood Pressure 157/81 08/19/18 14:00 O2 Sat by Pulse Oximetry (%) 97 08/19/18 09:00 Constitutional: Yes: No Distress, Obese Cardiovascular: Yes: Regular Rate and Rhythm, S1, S2 Respiratory: Yes: Diminished Gastrointestinal: Yes: Normal Bowel Sounds, Soft, Abdomen, Obese. No: Tenderness Extremities: Yes: Other (decreased erythema 2nd toe) Edema: Yes Labs: CBC, BMP 08/19/18 05:15 08/19/18 05:15 INR, PTT INR 1.23 (0.83-1.09) H 08/18/18 08:05 Assessment/Plan Sepsis Cellulitis L 2nd toe/ distal L LE Renal failure Diabetes mellitus Thrombocytopenia- improved Redose vancomycin x 1 Check trough am Continue meropenem
[2018-08-19] MEDS ORDERED: VANCOMYCIN 1,250 MG in DEXTROSE 5%-WATER - 250 ML IVPB ONE (16:45)
--- NOTE | 2018-08-19 17:00 | PN ---
Teaching Attending Note Name of Resident: Char Vera ATTENDING PHYSICIAN STATEMENT I saw and evaluated the patient. I reviewed the resident's note and discussed the case with the resident. I agree with the resident's findings and plan as documented with exceptions below. SUBJECTIVE: Patient seen and examined. c/o dyspnea progressive over last night, no chest pressure. denies any left toe pain. fevers yesterday. OBJECTIVE: Vital Signs Period Temp Pulse Resp BP Sys/Gallo Pulse Ox Last 24 Hr 98.1 F-101.8 F 63-102 17-30 102-157/43-81 97-97 Intake & Output 08/16/18 08/17/18 08/18/18 08/19/18 23:59 23:59 23:59 23:59 Intake Total 2200 4755 1936 Output Total 200 1800 200 Balance 1999 2955 1736 Weight 288 lb 288 lb 12.889 oz 293 lb General: tachpneic in bed Neck: soft, supple, JVd visualization limited given body habitus Chest: bibasilar rales Abdomen:soft, obese, NT Extremities: left 2nd toe erythema/swelling, small diabetic ulcer at the proximal nail fold with purulent drainage, probes about 1.0 cm, no soft tissue crepitus. No tenderness to palpation. Erythema to the digit. Home Medications Medication Instructions Recorded Ranolazine [Ranexa] 500 mg PO BID 07/13/13 Ranitidine [Zantac -] 150 mg PO BID 06/19/17 Clonidine Patch [Catapres Tts 0.3 mg TD WEEKLY 06/21/17 Patch -] Aspirin [ASA -] 81 mg PO DAILY 09/28/17 Nitroglycerin [Nitrostat] 0.4 mg SL PRN PRN 09/28/17 Torsemide 1 tab PO DAILY 09/29/17 Carvedilol [Coreg -] 25 mg PO BID #60 tablet 09/30/17 Atorvastatin Ca [Lipitor] 80 mg PO HS 06/01/18 Ergocalciferol (Vitamin D2) 50,000 unit PO WEEKLY 06/01/18 [Vitamin D2] Insulin Lispro [Humalog] 0 unit SQ ASDIR PRN 06/01/18 [place]-3 Fatty Acids [[place]-3] 1,000 mg PO BID 06/01/18 Sacubitril/Valsartan [Entresto 49 1 each PO BID 06/01/18 mg-51 mg Tablet] Clopidogrel Bisulfate [Plavix -] 75 mg PO DAILY 30 Days #0 tab 06/08/18 Active Medications Acetaminophen (Tylenol -) 650 mg PO Q4H PRN PRN Reason: FEVER Last Admin: 08/19/18 15:07 Dose: 650 mg Aspirin (Asa -) 81 mg PO DAILY [facility] Last Admin: 08/19/18 09:50 Dose: 81 mg Atorvastatin Calcium (Lipitor -) 80 mg PO HS [facility] Last Admin: 08/18/18 21:08 Dose: 80 mg Carvedilol (Coreg -) 25 mg PO BID [facility] Last Admin: 08/19/18 09:49 Dose: 25 mg Chlorhexidine Gluconate (Hibiclens For Decolonization -) 1 applic TP HS [facility] Last Admin: 08/18/18 21:08 Dose: 1 applic Clopidogrel Bisulfate (Plavix -) 75 mg PO DAILY [facility] Last Admin: 08/19/18 09:50 Dose: 75 mg Guaifenesin/Codeine Phosphate (Robitussin Ac -) 5 ml PO Q8H PRN PRN Reason: COUGH Last Admin: 08/19/18 15:25 Dose: 5 ml Heparin Sodium (Porcine) (Heparin -) 5,000 unit SQ TID [facility] Last Admin: 08/19/18 13:55 Dose: 5,000 unit Meropenem 500 mg/ Dextrose 100 mls @ 200 mls/hr IVPB Q12H [facility] Last Admin: 08/19/18 06:24 Dose: 200 mls/hr Vancomycin HCl 1,250 mg/ (Dextrose) 250 mls @ 250 mls/2 hr IVPB ONCE ONE; Protocol Stop: 08/19/18 18:44 Insulin Aspart (Novolog Vial Sliding Scale -) 1 vial SQ Q4H [facility]; Protocol Last Admin: 08/19/18 16:40 Dose: Not Given Lactobacillus Acidophilus (Bacid -) 1 tab PO DAILY [facility] Last Admin: 08/19/18 09:50 Dose: 1 tab Mupirocin (Bactroban Ointment (For Decolonization) -) 1 applic NS BID [facility] Stop: 08/22/18 21:59 Last Admin: 08/19/18 09:51 Dose: 1 applic Mupirocin (Bactroban 2% Ointment -) 1 applic TP DAILY [facility] [id number] Ethyl Esters (Lovaza -) 2 gm PO BID [facility] Last Admin: 08/19/18 09:49 Dose: 2 gm Ranitidine HCl (Zantac -) 150 mg PO BID [facility] Last Admin: 08/19/18 09:50 Dose: 150 mg Ranolazine (Ranexa -) 500 mg PO BID [facility] Last Admin: 08/19/18 09:50 Dose: 500 mg Laboratory Results - last 24 hr 08/18/18 08/18/18 08/19/18 17:40 21:10 05:15 WBC RBC Hgb Hct MCV MCH MCHC RDW Plt Count MPV Absolute Neuts (auto) Neutrophils % Lymphocytes % Monocytes % Eosinophils % Basophils % Nucleated RBC % PTT (Actin FS) 65.7 H 51.9 H Sodium Potassium Chloride Carbon Dioxide Anion Gap BUN Creatinine Creat Clearance w eGFR POC Glucometer [phone] Random Glucose Hemoglobin A1c % Calcium Phosphorus Magnesium Total Bilirubin AST ALT Alkaline Phosphatase Creatine Kinase Creatine Kinase Index CK-MB (CK-2) Troponin I Total Protein Albumin Urine Protein Ur Random Sodium Urine Creatinine 08/19/18 08/19/18 08/19/18 05:15 05:15 05:15 WBC 7.4 RBC 3.01 L Hgb 9.2 L Hct 27.1 L D MCV 90.2 MCH 30.5 MCHC 33.8 RDW 15.8 Plt Count 175 D MPV 7.3 L Absolute Neuts (auto) 6.1 Neutrophils % 81.6 Lymphocytes % 8.5 Monocytes % 8.8 Eosinophils % 0.6 D Basophils % 0.5 Nucleated RBC % 0 PTT (Actin FS) Sodium 137 Potassium 4.2 Chloride 106 Carbon Dioxide 19 L Anion Gap 12 BUN 72 H Creatinine 4.2 H Creat Clearance w eGFR 14.75 POC Glucometer Random Glucose 94 Hemoglobin A1c % 6.0 Calcium 7.7 L Phosphorus 4.6 Magnesium 1.9 Total Bilirubin 0.8 AST 83 H ALT 41 Alkaline Phosphatase 77 Creatine Kinase Creatine Kinase Index CK-MB (CK-2) Troponin I Total Protein 6.7 Albumin 2.5 L Urine Protein Ur Random Sodium Urine Creatinine 08/19/18 08/19/18 08/19/18 05:15 12:00 12:00 WBC RBC Hgb Hct MCV MCH MCHC RDW Plt Count MPV Absolute Neuts (auto) Neutrophils % Lymphocytes % Monocytes % Eosinophils % Basophils % Nucleated RBC % PTT (Actin FS) Sodium Potassium Chloride Carbon Dioxide Anion Gap BUN Creatinine Creat Clearance w eGFR POC Glucometer Random Glucose Hemoglobin A1c % Calcium Phosphorus Magnesium Total Bilirubin AST ALT Alkaline Phosphatase Creatine Kinase 402 H Creatine Kinase Index 2.8 CK-MB (CK-2) 11.6 H Troponin I 19.10 H* Total Protein Albumin Urine Protein Ur Random Sodium 34 L Urine Creatinine 75.0 H 08/19/18 12:00 WBC RBC Hgb Hct MCV MCH MCHC RDW Plt Count MPV Absolute Neuts (auto) Neutrophils % Lymphocytes % Monocytes % Eosinophils % Basophils % Nucleated RBC % PTT (Actin FS) Sodium Potassium Chloride Carbon Dioxide Anion Gap BUN Creatinine Creat Clearance w eGFR POC Glucometer Random Glucose Hemoglobin A1c % Calcium Phosphorus Magnesium Total Bilirubin AST ALT Alkaline Phosphatase Creatine Kinase Creatine Kinase Index CK-MB (CK-2) Troponin I Total Protein Albumin Urine Protein 128 H Ur Random Sodium Urine Creatinine Microbiology 08/17/18 14:10 Blood - Peripheral Venous Blood Culture - Preliminary NO GROWTH OBTAINED AFTER 48 HOURS, INCUBATION TO CONTINUE FOR 3 DAYS. 08/17/18 14:25 Blood - Peripheral Venous Blood Culture - Preliminary NO GROWTH OBTAINED AFTER 48 HOURS, INCUBATION TO CONTINUE FOR 3 DAYS. 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 CXR reviewed. Discussed with Dr. Bertrand. Lasix 80 mg IV x 1. Strict I/Os and hemodynamics monitoring. Off IVF. ID input noted/Meropenem/vancomycin day 2, renal dosing. will need additional imaging left foot when hemodynamics improve. Unable to get MRI. Bone scan when clinically stable. Podiatry input noted, further imaging and surgical plan when hemodynamics improve. Cardiology input noted. Heparin drip, 2D echo noted. Needs cardiac risk stratification when improved, however, renal function limiting factor. Nephrology input noted. Monitor renal function Advised patient to turn off insulin pump for now. ISS, diabetic diet. Standing insulin based on blood sugars. Endocrine input noted. ASA/plavix/ranexa/statin/clonidine. Resume coreg Plan discussed with patien and at bedside, all questions answered. Care co-ordinated with ICU, cardiology, podiatry. Total critical care time spent 35 min.
[2018-08-19] MEDS ORDERED: PT OWN MED DRAWER 7, Y5N ONE (21:24)
[2018-08-19] MEDS: ATORVASTATIN CA 80 MG TABLET (FP) PO SCH (21:39)
[2018-08-19] MEDS: CHLORHEXIDINE GLUCONATE 4% CLEANSER FOR DECOLONIZATION TP SCH (21:39)
[2018-08-20] MEDS: INSULIN SLIDING SCALE (NOVOLOG) 1 VIAL SQ SCH ×6 (01:30→22:18)
[2018-08-20] MEDS: guaiFENesin/CODEINE 5 ML UNIT-DOSE CUPS PO PRN ×3 (05:10→21:15)
[2018-08-20] MEDS ORDERED: PT OWN MED DRAWER 7, Y5N ONE ×3 (05:10→17:12)
[2018-08-20 06:19] LABS: BASO % 0.4 % (0-2.0); EOS % 0.4 % (0-4.5); HEMATOCRIT 24.1 % (35.4-49); HEMOGLOBIN 7.8 GM/dL (11.7-16.9); LYMPH % 8.4 % (8-40); MCH 29.7 pg (25.7-33.7); MCHC 32.5 g/dl (32.0-35.9); MEAN CELL VOLUME 91.6 fl (80-96); MEAN PLT VOLUME 7.9 fl (7.5-11.1); MONO % 11.1 % (3.8-10.2); NEUT % 79.7 % (42.8-82.8); PLATELET COUNT 139 K/MM3 (134-434); RBC 2.64 M/mm3 (4.00-5.60); WHITE BLOOD COUNT 9.3 K/mm3 (4.0-10.0)
[2018-08-20] MEDS: HEPARIN NA (PORCINE) 5,000 UNITS/ML 1ML VIAL SQ SCH ×3 (06:32→22:16)
[2018-08-20] MEDS: MEROPENEM 500 MG in DEXTROSE 5%-WATER 100 ML IVPB SCH ×2 (06:33→18:35)
[2018-08-20 06:43] LABS: ANION GAP 12 MMOL/L (8-16); BLOOD UREA NITROGEN 73 mg/dL (7-18); CALCIUM 7.9 mg/dL (8.5-10.1); CHLORIDE 106 mmol/L (98-107); CO2 19 mmol/L (21-32); CREATININE 4.3 mg/dL (0.55-1.3); GLUCOSE,RANDOM 227 mg/dL (74-106); MAGNESIUM 2.4 mg/dL (1.8-2.4); PHOSPHOROUS 5.1 mg/dL (2.5-4.9); POTASSIUM 4.5 mmol/L (3.5-5.1); SODIUM 136 mmol/L (136-145)
[2018-08-20] MEDS ORDERED: FUROSEMIDE 40 MG/4 ML INJECTABLE VIAL IVPUSH ONE (08:21)
[2018-08-20] MEDS ORDERED: FUROSEMIDE 40 MG/4 ML INJECTABLE VIAL ONE (08:36)
--- NOTE | 2018-08-20 08:55 | PN ---
Physical Exam: SUBJECTIVE: Patient seen and examined at bedside. Fever to 103 at 2pm yesterday. Respiratory complaints unchanged. OBJECTIVE: Vital Signs Period Temp Pulse Resp BP Sys/Gallo Pulse Ox Last 24 Hr 98.1 F-103 F 63-102 16-30 104-157/35-88 96-97 GENERAL: A&Ox3, NAD HEAD: NC/AT EYES: PERRLA, EOMI EARS, NOSE, THROAT: MMM NECK: Normal range of motion, supple without lymphadenopathy LUNGS: CTA b/l, breathing labored, difficulty with inspiratory effort HEART: Paced rhythm, no m/r/g ABDOMEN: +bs, soft, TTP in RUQ UPPER EXTREMITIES: 2+ pulses, warm, well-perfused. No cyanosis. No clubbing. Cap refill <2 seconds. No peripheral edema. LOWER EXTREMITIES: 1+ pulses, warm, well-perfused. Distal LLE swollen. Erythematous ulcer of left second toe, demarcation line unchanged. Warmth throughout left calf relative to right. 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 Good eye contact. Appropriate mood and affect. SKIN: Warm, dry, normal turgor Laboratory Results - last 24 hr 08/19/18 08/19/18 08/19/18 12:00 12:00 12:00 WBC RBC Hgb Hct MCV MCH MCHC RDW Plt Count MPV Absolute Neuts (auto) Neutrophils % Lymphocytes % Monocytes % Eosinophils % Basophils % Nucleated RBC % PTT (Actin FS) Sodium Potassium Chloride Carbon Dioxide Anion Gap BUN Creatinine Creat Clearance w eGFR POC Glucometer Random Glucose Calcium Phosphorus Magnesium Urine Protein 128 H Ur Random Sodium 34 L Urine Creatinine 75.0 H Random Vancomycin 08/19/18 08/19/18 08/19/18 14:06 16:40 21:39 WBC RBC Hgb Hct MCV MCH MCHC RDW Plt Count MPV Absolute Neuts (auto) Neutrophils % Lymphocytes % Monocytes % Eosinophils % Basophils % Nucleated RBC % PTT (Actin FS) Sodium Potassium Chloride Carbon Dioxide Anion Gap BUN Creatinine Creat Clearance w eGFR POC Glucometer 103.70165 115.98849 [phone] Random Glucose Calcium Phosphorus Magnesium Urine Protein Ur Random Sodium Urine Creatinine Random Vancomycin 08/20/18 08/20/18 08/20/18 01:10 05:30 05:30 WBC RBC Hgb Hct MCV MCH MCHC RDW Plt Count MPV Absolute Neuts (auto) Neutrophils % Lymphocytes % Monocytes % Eosinophils % Basophils % Nucleated RBC % PTT (Actin FS) 17.9 L Sodium Potassium Chloride Carbon Dioxide Anion Gap BUN Creatinine Creat Clearance w eGFR POC Glucometer [phone] Random Glucose Calcium Phosphorus Magnesium Urine Protein Ur Random Sodium Urine Creatinine Random Vancomycin 23.8 08/20/18 08/20/18 08/20/18 05:30 05:30 06:07 WBC 9.3 RBC 2.64 L Hgb 7.8 L Hct 24.1 L MCV 91.6 MCH 29.7 MCHC 32.5 RDW 16.0 H Plt Count 139 D MPV 7.9 Absolute Neuts (auto) 7.4 Neutrophils % 79.7 Lymphocytes % 8.4 Monocytes % 11.1 H Eosinophils % 0.4 Basophils % 0.4 Nucleated RBC % 0 PTT (Actin FS) Sodium 136 Potassium 4.5 Chloride 106 Carbon Dioxide 19 L Anion Gap 12 BUN 73 H Creatinine 4.3 H Creat Clearance w eGFR 14.36 POC Glucometer [phone] Random Glucose 227 H Calcium 7.9 L Phosphorus 5.1 H Magnesium 2.4 Urine Protein Ur Random Sodium Urine Creatinine Random Vancomycin Active Medications Generic Name Dose Route Start Last Admin Trade Name Freq PRN Reason Stop Dose Admin Acetaminophen 650 mg 08/17/18 18:08 08/19/18 15:07 Tylenol - PO 650 mg Q4H PRN Administration FEVER Aspirin 81 mg 08/18/18 10:00 08/19/18 09:50 Asa - PO 81 mg DAILY [facility] Administration Atorvastatin Calcium 80 mg 08/17/18 22:00 08/19/18 21:39 Lipitor - PO 80 mg HS [facility] Administration Carvedilol 25 mg 08/18/18 22:00 08/19/18 21:39 Coreg - PO 25 mg BID [facility] Administration Chlorhexidine Gluconate 1 applic 08/17/18 22:00 08/19/18 21:39 Hibiclens For Decolonization - TP 1 applic HS [facility] Administration Clopidogrel Bisulfate 75 mg 08/18/18 10:00 08/19/18 09:50 Plavix - PO 75 mg DAILY [facility] Administration Guaifenesin/Codeine Phosphate 5 ml 08/19/18 15:05 08/20/18 05:10 Robitussin Ac - PO 5 ml Q8H PRN Administration COUGH Heparin Sodium (Porcine) 5,000 unit 08/19/18 14:00 08/20/18 06:32 Heparin - SQ 5,000 unit TID [facility] Administration Meropenem 500 mg/ Dextrose 100 mls @ 200 mls/hr 08/17/18 18:45 08/20/18 06:33 IVPB 200 mls/hr Q12H [facility] Administration Insulin Aspart 1 vial 08/19/18 13:00 08/20/18 06:32 Novolog Vial Sliding Scale - SQ 6 unit Q4H [facility] Administration Protocol Lactobacillus Acidophilus 1 tab 08/19/18 10:00 08/19/18 09:50 Bacid - PO 1 tab DAILY [facility] Administration Mupirocin 1 applic 08/17/18 22:00 08/19/18 21:39 Bactroban Ointment (For Decolonization) - NS 08/22/18 21:59 1 applic BID [facility] Administration Mupirocin 1 applic 08/20/18 10:00 Bactroban 2% Ointment - TP DAILY [facility] [id number] Ethyl Esters 2 gm 08/17/18 22:00 08/19/18 21:39 Lovaza - PO 2 gm BID [facility] Administration Ranitidine HCl 150 mg 08/17/18 22:00 08/19/18 21:39 Zantac - PO 150 mg BID [facility] Administration Ranolazine 500 mg 08/17/18 22:00 08/19/18 21:39 Ranexa - PO 500 mg BID [facility] Administration ASSESSMENT/PLAN: 57 y/o M w/ PMHx IDDM (on insulin pump), HTN, HLD, CAD s/p CABG and s/p AICD, CHF, Aortic stenosis, CKD, p/w fever, rigors, malaise x 1 day, admitted to ICU for NSTEMI and sepsis. #CV -cardiology consulted, Pt's regular lead care manager is Dr. Mullen -troponins downtrending, completed heparin gtt, now on prophylactic heparin subq -no further Vtach since Lasix given yesterday, likely Quang-Starling improvement -congestion on CXR unchanged, IV Lasix 80 given again -patient agrees to central line placement under ultrasound guidance if necessary for pressure support -per cardiology, ASA/Plavix , Lipitor, Lovaza, Ranexa -cardiology recommends Entresto if cleared by nephrology -maintain K > 4.5, Mg > 2 -hold further anti-hypertensives #heme -Hb dropped 9.2 to 7.8 despite discontinuation of fluids and diuresis -abdominal tenderness noted on PE -stat abd US ordered -repeat CBC this PM -further imaging as necessary #ID -ID consulted and case discussed -avoid nephrotoxic ABx -cont meropenem as per ID -C diff studies order in light of worsening diarrhea -Pt's machine filler shredder, Dr. Harley Hall, declines to see patient in ICU -wound care and in-house podiatry consulted -no surgical intervention at this time -wound care and podiatry recommend MRI, however cardiac hardware precludes MR study -bone scan ordered, Pt currently unable to tolerate positioning for study #renal/urology -nephrology following -per nephrology, "Urine Sodium low consistent with volume depletion with preserved tubular function" -Cr above CKD baseline -fluids held d/t pulm congestion -IV Lasix d/t pulm congestion -avoid nephrotoxic agents -patient is becoming incontinent d/t fatigue, agrees to Diaz placement #pulmonary -trial of HFOT 30/35 -flonase/ocean NS #endocrinology -endocrinology following -off insulin pump -tight BGM and SSI q4h #FEN -no IVF, Lasix as needed -monitor and correct electrolytes -diabetic diet #PPx -DVT: heparin subq -GI: Zantac #code -full #dispo -cont to monitor in ICU Visit type - Emergency Visit Emergency Visit: No - New Patient This patient is new to me today: No - Critical Care Critical Care patient: Yes Total Critical Care Time (in minutes): 40 Critical Care Statement: The care of this patient involved high complexity decision making to prevent further life threatening deterioration of the patient 's condition and/or to evaluate & treat vital organ system(s) failure or risk of failure.
[2018-08-20] MEDS: OMEGA-3 ACID ETHYL ESTERS (FATTY-ACIDS) 1 GM CAPSULE (FP) PO SCH ×2 (09:55→22:15)
[2018-08-20] MEDS: LACTOBACILLUS ACIDOPHILUS 1 TABLET PO SCH (09:55)
[2018-08-20] MEDS: ASPIRIN 81 MG CHEWABLE TABLETS PO SCH (09:55)
[2018-08-20] MEDS: CARVEDILOL 25 MG TABLET (FP) PO SCH ×2 (09:55→22:15)
[2018-08-20] MEDS: RANITIDINE HCL 150 MG TABLET (FP) PO SCH ×2 (09:56→22:15)
[2018-08-20] MEDS: CLOPIDOGREL BISULFATE 75 MG TABLET (FP) PO SCH (09:56)
[2018-08-20] MEDS: RANOLAZINE E.R. 500 MG TABLET (FP) PO SCH ×2 (09:56→22:15)
[2018-08-20] MEDS: MUPIROCIN 2% TOPICAL OINTMENT 22 GM TUBE TP SCH (09:56)
[2018-08-20] MEDS: MUPIROCIN 2% TOPICAL OINTMENT FOR DECOLONIZATION NS SCH ×2 (09:57→22:15)
--- NOTE | 2018-08-20 11:44 | PN ---
Teaching Attending Note Name of Resident: Ramesh Rm ATTENDING PHYSICIAN STATEMENT I saw and evaluated the patient. I reviewed the resident's note and discussed the case with the resident. I agree with the resident's findings and plan as documented. SUBJECTIVE: Patient seen and examined in the ICU. Awake and alert. Still with SOB. No CP. Less VT noted. Used CPAP overnight. OBJECTIVE: Intake & Output 08/17/18 08/18/18 08/19/18 08/20/18 23:59 23:59 23:59 23:59 Intake Total 2200 4755 4354 300 Output Total 200 2198 660 7931 Balance 2000 2955 3654 -700 Weight 288 lb 288 lb 12.889 oz 293 lb 292 lb Last Vital Signs Temp Pulse Resp BP Pulse Ox 98.6 F 81 18 139/70 96 08/20/18 10:00 08/20/18 10:00 08/20/18 10:00 08/20/18 10:00 08/20/18 08:00 Active Medications Acetaminophen (Tylenol -) 650 mg PO Q4H PRN PRN Reason: FEVER Last Admin: 08/19/18 15:07 Dose: 650 mg Aspirin (Asa -) 81 mg PO DAILY [facility] Last Admin: 08/20/18 09:55 Dose: 81 mg Atorvastatin Calcium (Lipitor -) 80 mg PO HS [facility] Last Admin: 08/19/18 21:39 Dose: 80 mg Carvedilol (Coreg -) 25 mg PO BID [facility] Last Admin: 08/20/18 09:55 Dose: 25 mg Chlorhexidine Gluconate (Hibiclens For Decolonization -) 1 applic TP HS [facility] Last Admin: 08/19/18 21:39 Dose: 1 applic Clopidogrel Bisulfate (Plavix -) 75 mg PO DAILY [facility] Last Admin: 08/20/18 09:56 Dose: 75 mg Fluticasone Propionate (Flonase -) 1 spray NS BID [facility] Guaifenesin/Codeine Phosphate (Robitussin Ac -) 5 ml PO Q8H PRN PRN Reason: COUGH Last Admin: 08/20/18 05:10 Dose: 5 ml Heparin Sodium (Porcine) (Heparin -) 5,000 unit SQ TID [facility] Last Admin: 08/20/18 06:32 Dose: 5,000 unit Meropenem 500 mg/ Dextrose 100 mls @ 200 mls/hr IVPB Q12H [facility] Last Admin: 08/20/18 06:33 Dose: 200 mls/hr Insulin Aspart (Novolog Vial Sliding Scale -) 1 vial SQ Q4H [facility]; Protocol Last Admin: 08/20/18 09:37 Dose: 4 unit Lactobacillus Acidophilus (Bacid -) 1 tab PO DAILY [facility] Last Admin: 08/20/18 09:55 Dose: 1 tab Mupirocin (Bactroban Ointment (For Decolonization) -) 1 applic NS BID [facility] Stop: 08/22/18 21:59 Last Admin: 08/20/18 09:57 Dose: 1 applic Mupirocin (Bactroban 2% Ointment -) 1 applic TP DAILY [facility] Last Admin: 08/20/18 09:56 Dose: 1 applic [id number] Ethyl Esters (Lovaza -) 2 gm PO BID [facility] Last Admin: 08/20/18 09:55 Dose: 2 gm Ranitidine HCl (Zantac -) 150 mg PO BID [facility] Last Admin: 08/20/18 09:56 Dose: 150 mg Ranolazine (Ranexa -) 500 mg PO BID [facility] Last Admin: 08/20/18 09:56 Dose: 500 mg Sodium Chloride ([place] -) 2 spray NS TID PRN PRN Reason: NASAL CONGESTION GENERAL: A&Ox3, Mildly tachypneic at rest HEAD: NC/AT EYES: PERRLA, EOMI EARS, NOSE, THROAT: MMM NECK: Normal range of motion, supple without lymphadenopathy, JVD, or masses. LUNGS: bibasilar rhonchi HEART: Paced rhythm, no m/r/g ABDOMEN: (+) BS, soft, NT, ND UPPER EXTREMITIES: 2+ pulses, warm, well-perfused. No cyanosis. No clubbing. Cap refill <2 seconds. No peripheral edema. LOWER EXTREMITIES: Erythema of left second toe, slightly progressive changes NEUROLOGICAL: Non-focal PSYCHIATRIC: Cooperative. Good eye contact. Appropriate mood and affect. Laboratory Results - last 24 hr 08/19/18 08/19/18 08/19/18 12:00 12:00 12:00 WBC RBC Hgb Hct MCV MCH MCHC RDW Plt Count MPV Absolute Neuts (auto) Neutrophils % Lymphocytes % Monocytes % Eosinophils % Basophils % Nucleated RBC % PTT (Actin FS) Sodium Potassium Chloride Carbon Dioxide Anion Gap BUN Creatinine Creat Clearance w eGFR POC Glucometer Random Glucose Calcium Phosphorus Magnesium Urine Protein 128 H Ur Random Sodium 34 L Urine Creatinine 75.0 H Random Vancomycin 08/19/18 08/19/18 08/19/18 14:06 16:40 21:39 WBC RBC Hgb Hct MCV MCH MCHC RDW Plt Count MPV Absolute Neuts (auto) Neutrophils % Lymphocytes % Monocytes % Eosinophils % Basophils % Nucleated RBC % PTT (Actin FS) Sodium Potassium Chloride Carbon Dioxide Anion Gap BUN Creatinine Creat Clearance w eGFR POC Glucometer 103.75698 115.64994 287.74952 Random Glucose Calcium Phosphorus Magnesium Urine Protein Ur Random Sodium Urine Creatinine Random Vancomycin 08/20/18 08/20/18 08/20/18 01:10 05:30 05:30 WBC RBC Hgb Hct MCV MCH MCHC RDW Plt Count MPV Absolute Neuts (auto) Neutrophils % Lymphocytes % Monocytes % Eosinophils % Basophils % Nucleated RBC % PTT (Actin FS) 17.9 L Sodium Potassium Chloride Carbon Dioxide Anion Gap BUN Creatinine Creat Clearance w eGFR POC Glucometer 242.11385 Random Glucose Calcium Phosphorus Magnesium Urine Protein Ur Random Sodium Urine Creatinine Random Vancomycin 23.8 08/20/18 08/20/18 08/20/18 05:30 05:30 06:07 WBC 9.3 RBC 2.64 L Hgb 7.8 L Hct 24.1 L MCV 91.6 MCH 29.7 MCHC 32.5 RDW 16.0 H Plt Count 139 D MPV 7.9 Absolute Neuts (auto) 7.4 Neutrophils % 79.7 Lymphocytes % 8.4 Monocytes % 11.1 H Eosinophils % 0.4 Basophils % 0.4 Nucleated RBC % 0 PTT (Actin FS) Sodium 136 Potassium 4.5 Chloride 106 Carbon Dioxide 19 L Anion Gap 12 BUN 73 H Creatinine 4.3 H Creat Clearance w eGFR 14.36 POC Glucometer 256.71570 Random Glucose 227 H Calcium 7.9 L Phosphorus 5.1 H Magnesium 2.4 Urine Protein Ur Random Sodium Urine Creatinine Random Vancomycin ASSESSMENT/PLAN: Sepsis due to Cellulitus / skin infection IDDM on insulin pump HTN HLD CAD S/P CABG S/P AICD CHF Aortic stenosis CKD NSTEMI Sleep Disordered Breathing ABX per ID O2 as needed Follow cultures Hold IVF Continue Coreg Monitor off Clonidine VTE prophylaxis ASA Plavix Glycemic control CPAP QHS and PRN Trial of HF OT ICU monitoring due to tenuous overall status Dr López Critical care time spent in reviewing chart, evaluating patient and formulating plan - 36 minutes OBJECTIVE: ASSESSMENT AND PLAN:
--- NOTE | 2018-08-20 11:56 | PN ---
Progress Note, Physician Chief Complaint: Left leg swelling Left 2nd digit cellulitis. History of Present Illness: Patient present in ICU in bed with labored breathing at this time. Unable to provide history at this time. Nurse at bedside. With multiple Co morbidities. From notes was a previous pod with small dwight in the skin and noted redness and swelling a week after procedure. - Current Medication List Current Medications: Active Medications Acetaminophen (Tylenol -) 650 mg PO Q4H PRN PRN Reason: FEVER Last Admin: 08/19/18 15:07 Dose: 650 mg Aspirin (Asa -) 81 mg PO DAILY [facility] Last Admin: 08/20/18 09:55 Dose: 81 mg Atorvastatin Calcium (Lipitor -) 80 mg PO HS [facility] Last Admin: 08/19/18 21:39 Dose: 80 mg Carvedilol (Coreg -) 25 mg PO BID [facility] Last Admin: 08/20/18 09:55 Dose: 25 mg Chlorhexidine Gluconate (Hibiclens For Decolonization -) 1 applic TP HS [facility] Last Admin: 08/19/18 21:39 Dose: 1 applic Clopidogrel Bisulfate (Plavix -) 75 mg PO DAILY [facility] Last Admin: 08/20/18 09:56 Dose: 75 mg Fluticasone Propionate (Flonase -) 1 spray NS BID [facility] Guaifenesin/Codeine Phosphate (Robitussin Ac -) 5 ml PO Q8H PRN PRN Reason: COUGH Last Admin: 08/20/18 05:10 Dose: 5 ml Heparin Sodium (Porcine) (Heparin -) 5,000 unit SQ TID [facility] Last Admin: 08/20/18 06:32 Dose: 5,000 unit Meropenem 500 mg/ Dextrose 100 mls @ 200 mls/hr IVPB Q12H [facility] Last Admin: 08/20/18 06:33 Dose: 200 mls/hr Insulin Aspart (Novolog Vial Sliding Scale -) 1 vial SQ Q4H [facility]; Protocol Last Admin: 08/20/18 09:37 Dose: 4 unit Lactobacillus Acidophilus (Bacid -) 1 tab PO DAILY [facility] Last Admin: 08/20/18 09:55 Dose: 1 tab Mupirocin (Bactroban Ointment (For Decolonization) -) 1 applic NS BID [facility] Stop: 08/22/18 21:59 Last Admin: 08/20/18 09:57 Dose: 1 applic Mupirocin (Bactroban 2% Ointment -) 1 applic TP DAILY [facility] Last Admin: 08/20/18 09:56 Dose: 1 applic Mwjqk-[id number]-[id number] Ethyl Esters (Lovaza -) 2 gm PO BID [facility] Last Admin: 08/20/18 09:55 Dose: 2 gm Ranitidine HCl (Zantac -) 150 mg PO BID [facility] Last Admin: 08/20/18 09:56 Dose: 150 mg Ranolazine (Ranexa -) 500 mg PO BID [facility] Last Admin: 08/20/18 09:56 Dose: 500 mg Sodium Chloride ([place] Nasal [place] -) 2 spray NS TID PRN PRN Reason: NASAL CONGESTION - Objective Vital Signs: Vital Signs Temperature 98.6 F 08/20/18 10:00 Pulse Rate 81 08/20/18 10:00 Respiratory Rate 18 08/20/18 10:00 Blood Pressure 139/70 08/20/18 10:00 O2 Sat by Pulse Oximetry (%) 96 08/20/18 08:00 Respiratory: Yes: Poor Air Entry Extremities: Yes: Calf Tenderness Edema: LLE: 1+ Additional Findings/Remarks: LLE: Vasc to left non palpable due to overlying edema, LLE in general with +1 edema, discloration noted in leg, Foot warm to touch, CAp fill time wnl, Derm: Left 2nd digit with erythema extending to PIPJ, small overlying dorsal scab noted with minimal fluctuance noted distally, no ascended erythema proximal to the skin marking, mild edema noted, no pain on palpation noted, no malodor noted Labs: CBC, BMP 08/20/18 05:30 08/20/18 05:30 INR, PTT INR 1.23 (0.83-1.09) H 08/18/18 08:05 - ....Imaging X-ray: Report Reviewed, Image Reviewed Other: Pending (Bone Scan) Assessment/Plan A: LLE Edema L 2nd digit cellulitis w/ ulceration P: Evaluated and chart reviewed Recc LLE ultrasound to r/o DVT due to increased calf pain and swelling Will pend bone scan for eval of underlying OM Xrays reviewed labs reviwed; WBC 9.3, Afeb at this time. Bedside i and D performed, minimal serous drainage noted from distal aspect of the 2nd digit cont local wound care Cont Abx per ID recommendation Discussed with resident Will continue to follow
--- NOTE | 2018-08-20 11:59 | PN ---
Physical Exam: SUBJECTIVE: Patient seen and examined OBJECTIVE: Vital Signs Period Temp Pulse Resp BP Sys/Gallo Pulse Ox Last 24 Hr 98.1 F-103 F 69-102 16-30 104-157/35-88 96-96 GENERAL: The patient is awake, alert, and fully oriented, in no acute distress. HEAD: Normal with no signs of trauma. EYES: PERRL, extraocular movements intact, sclera anicteric, conjunctiva clear. No ptosis. ENT: Ears normal, nares patent, oropharynx clear without exudates, moist mucous membranes. NECK: Trachea midline, full range of motion, supple. LUNGS: Breath sounds equal, clear to auscultation bilaterally, no wheezes, no crackles, no accessory muscle use. HEART: Regular rate and rhythm, S1, S2 without murmur, rub or gallop. ABDOMEN: Soft, nontender, nondistended, normoactive bowel sounds, no guarding, no rebound, no hepatosplenomegaly, no masses. EXTREMITIES: 2+ pulses, warm, well-perfused, no edema. NEUROLOGICAL: Cranial nerves II through XII grossly intact. Normal speech, gait not observed. PSYCH: Normal mood, normal affect. SKIN: Warm, dry, normal turgor, no rashes or lesions noted Laboratory Results - last 24 hr 08/19/18 08/19/18 08/19/18 12:00 12:00 12:00 WBC RBC Hgb Hct MCV MCH MCHC RDW Plt Count MPV Absolute Neuts (auto) Neutrophils % Lymphocytes % Monocytes % Eosinophils % Basophils % Nucleated RBC % PTT (Actin FS) Sodium Potassium Chloride Carbon Dioxide Anion Gap BUN Creatinine Creat Clearance w eGFR POC Glucometer Random Glucose Calcium Phosphorus Magnesium Urine Protein 128 H Ur Random Sodium 34 L Urine Creatinine 75.0 H Random Vancomycin 08/19/18 08/19/18 08/19/18 14:06 16:40 21:39 WBC RBC Hgb Hct MCV MCH MCHC RDW Plt Count MPV Absolute Neuts (auto) Neutrophils % Lymphocytes % Monocytes % Eosinophils % Basophils % Nucleated RBC % PTT (Actin FS) Sodium Potassium Chloride Carbon Dioxide Anion Gap BUN Creatinine Creat Clearance w eGFR POC Glucometer 103.34526 115.97133 287.00460 Random Glucose Calcium Phosphorus Magnesium Urine Protein Ur Random Sodium Urine Creatinine Random Vancomycin 08/20/18 08/20/18 08/20/18 01:10 05:30 05:30 WBC RBC Hgb Hct MCV MCH MCHC RDW Plt Count MPV Absolute Neuts (auto) Neutrophils % Lymphocytes % Monocytes % Eosinophils % Basophils % Nucleated RBC % PTT (Actin FS) 17.9 L Sodium Potassium Chloride Carbon Dioxide Anion Gap BUN Creatinine Creat Clearance w eGFR POC Glucometer 242.43185 Random Glucose Calcium Phosphorus Magnesium Urine Protein Ur Random Sodium Urine Creatinine Random Vancomycin 23.8 08/20/18 08/20/18 08/20/18 05:30 05:30 06:07 WBC 9.3 RBC 2.64 L Hgb 7.8 L Hct 24.1 L MCV 91.6 MCH 29.7 MCHC 32.5 RDW 16.0 H Plt Count 139 D MPV 7.9 Absolute Neuts (auto) 7.4 Neutrophils % 79.7 Lymphocytes % 8.4 Monocytes % 11.1 H Eosinophils % 0.4 Basophils % 0.4 Nucleated RBC % 0 PTT (Actin FS) Sodium 136 Potassium 4.5 Chloride 106 Carbon Dioxide 19 L Anion Gap 12 BUN 73 H Creatinine 4.3 H Creat Clearance w eGFR 14.36 POC Glucometer 256.73821 Random Glucose 227 H Calcium 7.9 L Phosphorus 5.1 H Magnesium 2.4 Urine Protein Ur Random Sodium Urine Creatinine Random Vancomycin Active Medications Generic Name Dose Route Start Last Admin Trade Name Freq PRN Reason Stop Dose Admin Acetaminophen 650 mg 08/17/18 18:08 08/19/18 15:07 Tylenol - PO 650 mg Q4H PRN Administration FEVER Aspirin 81 mg 08/18/18 10:00 08/20/18 09:55 Asa - PO 81 mg DAILY [facility] Administration Atorvastatin Calcium 80 mg 08/17/18 22:00 08/19/18 21:39 Lipitor - PO 80 mg HS [facility] Administration Carvedilol 25 mg 08/18/18 22:00 08/20/18 09:55 Coreg - PO 25 mg BID [facility] Administration Chlorhexidine Gluconate 1 applic 08/17/18 22:00 08/19/18 21:39 Hibiclens For Decolonization - TP 1 applic HS [facility] Administration Clopidogrel Bisulfate 75 mg 08/18/18 10:00 08/20/18 09:56 Plavix - PO 75 mg DAILY [facility] Administration Fluticasone Propionate 1 spray 08/20/18 11:15 Flonase - NS BID [facility] Guaifenesin/Codeine Phosphate 5 ml 08/19/18 15:05 08/20/18 05:10 Robitussin Ac - PO 5 ml Q8H PRN Administration COUGH Heparin Sodium (Porcine) 5,000 unit 08/19/18 14:00 08/20/18 06:32 Heparin - SQ 5,000 unit TID [facility] Administration Meropenem 500 mg/ Dextrose 100 mls @ 200 mls/hr 08/17/18 18:45 08/20/18 06:33 IVPB 200 mls/hr Q12H [facility] Administration Insulin Aspart 1 vial 08/19/18 13:00 08/20/18 09:37 Novolog Vial Sliding Scale - SQ 4 unit Q4H [facility] Administration Protocol Lactobacillus Acidophilus 1 tab 08/19/18 10:00 08/20/18 09:55 Bacid - PO 1 tab DAILY [facility] Administration Mupirocin 1 applic 08/17/18 22:00 08/20/18 09:57 Bactroban Ointment (For Decolonization) - NS 08/22/18 21:59 1 applic BID [facility] Administration Mupirocin 1 applic 08/20/18 10:00 08/20/18 09:56 Bactroban 2% Ointment - TP 1 applic DAILY [facility] Administration Irfat-3-[id number] Ethyl Esters 2 gm 08/17/18 22:00 08/20/18 09:55 Lovaza - PO 2 gm BID [facility] Administration Ranitidine HCl 150 mg 08/17/18 22:00 08/20/18 09:56 Zantac - PO 150 mg BID [facility] Administration Ranolazine 500 mg 08/17/18 22:00 08/20/18 09:56 Ranexa - PO 500 mg BID [facility] Administration Sodium Chloride 2 spray 08/20/18 11:06 [place] Nasal [place] - NS TID PRN NASAL CONGESTION ASSESSMENT/PLAN:
[2018-08-20] MEDS: FLUTICASONE PROP 0.05% 16 GM NASAL SPRAY NS SCH ×2 (12:01→22:18)
[2018-08-20] MEDS: SODIUM CHLORIDE NASAL SPRAY 44 ML BOTTLE NS PRN (12:02)
--- NOTE | 2018-08-20 12:37 | PN ---
Progress Note (short form) - Note Progress Note: Has epistaxis On regular diet now Vital Signs Period Temp Pulse Resp BP Sys/Gallo Pulse Ox Last 24 Hr 98.1 F-103 F 69-102 16-30 104-157/35-88 96-96 PE: AOx3 Neck: Supple, HEENT: EOMI Lungs: cTA CVS: S1S2 Abd: Benign EXt: Erythema left 2nd toe Neuro: No focal deficit CMP Sodium 136 mmol/L (136-145) 08/20/18 05:30 Potassium 4.5 mmol/L (3.5-5.1) 08/20/18 05:30 Chloride 106 mmol/L (98-107) 08/20/18 05:30 Carbon Dioxide 19 mmol/L (21-32) L 08/20/18 05:30 Anion Gap 12 MMOL/L (8-16) 08/20/18 05:30 BUN 73 mg/dL (7-18) H 08/20/18 05:30 Creatinine 4.3 mg/dL (0.55-1.3) H 08/20/18 05:30 Creat Clearance w eGFR 14.36 (>60) 08/20/18 05:30 POC Glucometer 240.17356 UNITS (80-120) 08/20/18 09:26 Random Glucose 227 mg/dL (74-106) H 08/20/18 05:30 Hemoglobin A1c % 6.0 % (4.2-6.3) 08/19/18 05:15 Lactic Acid 1.1 mmol/L (0.4-2.0) 08/17/18 20:20 Calcium 7.9 mg/dL (8.5-10.1) L 08/20/18 05:30 Phosphorus 5.1 mg/dL (2.5-4.9) H 08/20/18 05:30 Magnesium 2.4 mg/dL (1.8-2.4) 08/20/18 05:30 Total Bilirubin 0.8 mg/dL (0.2-1) 08/19/18 05:15 AST 83 U/L (15-37) H 08/19/18 05:15 ALT 41 U/L (13-61) 08/19/18 05:15 Alkaline Phosphatase 77 U/L (45-117) 08/19/18 05:15 Creatine Kinase 402 IU/L (26-308) H 08/19/18 05:15 Creatine Kinase Index 2.8 % (0.0-5.0) 08/19/18 05:15 CK-MB (CK-2) 11.6 ng/mL (0.5-3.6) H 08/19/18 05:15 Troponin I 19.10 ng/ml (0.00-0.05) H* 08/19/18 05:15 Total Protein 6.7 g/dl (6.4-8.2) 08/19/18 05:15 Albumin 2.5 g/dl (3.4-5.0) L 08/19/18 05:15 Current Medications Generic Name Dose Route Start Last Admin Trade Name Freq PRN Reason Stop Dose Admin Acetaminophen 650 mg 08/17/18 18:08 08/19/18 15:07 Tylenol - PO 650 mg Q4H PRN Administration FEVER Aspirin 81 mg 08/18/18 10:00 08/20/18 09:55 Asa - PO 81 mg DAILY [facility] Administration Atorvastatin Calcium 80 mg 08/17/18 22:00 08/19/18 21:39 Lipitor - PO 80 mg HS [facility] Administration Carvedilol 25 mg 08/18/18 22:00 08/20/18 09:55 Coreg - PO 25 mg BID [facility] Administration Chlorhexidine Gluconate 1 applic 08/17/18 22:00 08/19/18 21:39 Hibiclens For Decolonization - TP 1 applic HS [facility] Administration Clopidogrel Bisulfate 75 mg 08/18/18 10:00 08/20/18 09:56 Plavix - PO 75 mg DAILY [facility] Administration Fluticasone Propionate 1 spray 08/20/18 11:15 08/20/18 12:01 Flonase - NS 1 spray BID [facility] Administration Guaifenesin/Codeine Phosphate 5 ml 08/19/18 15:05 08/20/18 05:10 Robitussin Ac - PO 5 ml Q8H PRN Administration COUGH Heparin Sodium (Porcine) 5,000 unit 08/19/18 14:00 08/20/18 06:32 Heparin - SQ 5,000 unit TID [facility] Administration Meropenem 500 mg/ Dextrose 100 mls @ 200 mls/hr 08/17/18 18:45 08/20/18 06:33 IVPB 200 mls/hr Q12H [facility] Administration Insulin Aspart 1 vial 08/19/18 13:00 08/20/18 09:37 Novolog Vial Sliding Scale - SQ 4 unit Q4H [facility] Administration Protocol Lactobacillus Acidophilus 1 tab 08/19/18 10:00 08/20/18 09:55 Bacid - PO 1 tab DAILY [facility] Administration Mupirocin 1 applic 08/17/18 22:00 08/20/18 09:57 Bactroban Ointment (For Decolonization) - NS 08/22/18 21:59 1 applic BID [facility] Administration Mupirocin 1 applic 08/20/18 10:00 08/20/18 09:56 Bactroban 2% Ointment - TP 1 applic DAILY [facility] Administration Ssxsi-5-Azhj Ethyl Esters 2 gm 08/17/18 22:00 08/20/18 09:55 Lovaza - PO 2 gm BID [facility] Administration Ranitidine HCl 150 mg 08/17/18 22:00 08/20/18 09:56 Zantac - PO 150 mg BID [facility] Administration Ranolazine 500 mg 08/17/18 22:00 08/20/18 09:56 Ranexa - PO 500 mg BID [facility] Administration Sodium Chloride 2 spray 08/20/18 11:06 08/20/18 12:02 [place] Nasal [place] - NS 2 spray TID PRN Administration NASAL CONGESTION AP Left 2nd toe cellulitis Sepsis T2DM On Insulin pump at home CKD HLD CAD/Elevated Troponins: Probably secondary to demand ischemia BGM Q ACHS and 3 AM Levemir 12 units daily Novolog SS coverage Hold Insulin pump and long acting Insulin for now as food intake is inadequate. IV abx Bone scan or MRI to R/O Osteo Will f/u
--- NOTE | 2018-08-20 12:57 | PN ---
Teaching Attending Note Name of Resident: Char Vera ATTENDING PHYSICIAN STATEMENT I saw and evaluated the patient. I reviewed the resident's note and discussed the case with the resident. I agree with the resident's findings and plan as documented with exceptions below. SUBJECTIVE: Patient seen and examined. Breathing overall unchanged. Still with leg toe pain. Urinating well. no abdominal or back pain. OBJECTIVE: Vital Signs Period Temp Pulse Resp BP Sys/Gallo Pulse Ox Last 24 Hr 98.1 F-103 F 69-102 16-30 104-157/35-88 96-96 Intake & Output 08/17/18 08/18/18 08/19/18 08/20/18 23:59 23:59 23:59 23:59 Intake Total 2200 4755 4354 300 Output Total 200 3452 197 5176 Balance 1999 2955 3654 -700 Weight 288 lb 288 lb 12.889 oz 293 lb 292 lb General: sitting in bed, less tachypneic than yesterday Neck: body habitus limiting JVD exam CVS:S1S2 irregular Chest: bibasilar rales, decreased air entry, no wheezing Abdomen:soft, obese, NT Extremities: left 2nd toe erythema with swelling and ulcer at tip, worsened left foot edema, strong DP pulses bilaterally Home Medications Medication Instructions Recorded Ranolazine [Ranexa] 500 mg PO BID 07/13/13 Ranitidine [Zantac -] 150 mg PO BID 06/19/17 Clonidine Patch [Catapres Tts 0.3 mg TD WEEKLY 06/21/17 Patch -] Aspirin [ASA -] 81 mg PO DAILY 09/28/17 Nitroglycerin [Nitrostat] 0.4 mg SL PRN PRN 09/28/17 Torsemide 1 tab PO DAILY 09/29/17 Carvedilol [Coreg -] 25 mg PO BID #60 tablet 09/30/17 Atorvastatin Ca [Lipitor] 80 mg PO HS 06/01/18 Ergocalciferol (Vitamin D2) 50,000 unit PO WEEKLY 06/01/18 [Vitamin D2] Insulin Lispro [Humalog] 0 unit SQ ASDIR PRN 06/01/18 [place]-3 Fatty Acids [[place]-3] 1,000 mg PO BID 06/01/18 Sacubitril/Valsartan [Entresto 49 1 each PO BID 06/01/18 mg-51 mg Tablet] Clopidogrel Bisulfate [Plavix -] 75 mg PO DAILY 30 Days #0 tab 06/08/18 Active Medications Acetaminophen (Tylenol -) 650 mg PO Q4H PRN PRN Reason: FEVER Last Admin: 08/19/18 15:07 Dose: 650 mg Aspirin (Asa -) 81 mg PO DAILY [facility] Last Admin: 08/20/18 09:55 Dose: 81 mg Atorvastatin Calcium (Lipitor -) 80 mg PO HS [facility] Last Admin: 08/19/18 21:39 Dose: 80 mg Carvedilol (Coreg -) 25 mg PO BID [facility] Last Admin: 08/20/18 09:55 Dose: 25 mg Chlorhexidine Gluconate (Hibiclens For Decolonization -) 1 applic TP [facility] Last Admin: 08/19/18 21:39 Dose: 1 applic Clopidogrel Bisulfate (Plavix -) 75 mg PO DAILY [facility] Last Admin: 08/20/18 09:56 Dose: 75 mg Fluticasone Propionate (Flonase -) 1 spray NS BID [facility] Last Admin: 08/20/18 12:01 Dose: 1 spray Guaifenesin/Codeine Phosphate (Robitussin Ac -) 5 ml PO Q8H PRN PRN Reason: COUGH Last Admin: 08/20/18 05:10 Dose: 5 ml Heparin Sodium (Porcine) (Heparin -) 5,000 unit SQ TID [facility] Last Admin: 08/20/18 06:32 Dose: 5,000 unit Meropenem 500 mg/ Dextrose 100 mls @ 200 mls/hr IVPB Q12H [facility] Last Admin: 08/20/18 06:33 Dose: 200 mls/hr Insulin Aspart (Novolog) 0 units SQ [facility]; Protocol Insulin Aspart (Novolog Vial Sliding Scale -) 1 vial SQ TIDAC [facility]; Protocol Insulin Detemir (Levemir Vial) 12 units SQ [facility] Lactobacillus Acidophilus (Bacid -) 1 tab PO DAILY [facility] Last Admin: 08/20/18 09:55 Dose: 1 tab Mupirocin (Bactroban Ointment (For Decolonization) -) 1 applic NS BID [facility] Stop: 08/22/18 21:59 Last Admin: 08/20/18 09:57 Dose: 1 applic Mupirocin (Bactroban 2% Ointment -) 1 applic TP DAILY [facility] Last Admin: 08/20/18 09:56 Dose: 1 applic Cydga-7-Sqzy Ethyl Esters (Lovaza -) 2 gm PO BID [facility] Last Admin: 08/20/18 09:55 Dose: 2 gm Ranitidine HCl (Zantac -) 150 mg PO BID [facility] Last Admin: 08/20/18 09:56 Dose: 150 mg Ranolazine (Ranexa -) 500 mg PO BID [facility] Last Admin: 08/20/18 09:56 Dose: 500 mg Sodium Chloride ([place] Nasal [place] -) 2 spray NS TID PRN PRN Reason: NASAL CONGESTION Last Admin: 08/20/18 12:02 Dose: 2 spray Laboratory Results - last 24 hr 08/19/18 08/19/18 08/19/18 14:06 16:40 21:39 WBC RBC Hgb Hct MCV MCH MCHC RDW Plt Count MPV Absolute Neuts (auto) Neutrophils % Lymphocytes % Monocytes % Eosinophils % Basophils % Nucleated RBC % PTT (Actin FS) Sodium Potassium Chloride Carbon Dioxide Anion Gap BUN Creatinine Creat Clearance w eGFR POC Glucometer 103.19778 115.83958 287.95171 Random Glucose Calcium Phosphorus Magnesium Random Vancomycin 08/20/18 08/20/18 08/20/18 01:10 05:30 05:30 WBC RBC Hgb Hct MCV MCH MCHC RDW Plt Count MPV Absolute Neuts (auto) Neutrophils % Lymphocytes % Monocytes % Eosinophils % Basophils % Nucleated RBC % PTT (Actin FS) 17.9 L Sodium Potassium Chloride Carbon Dioxide Anion Gap BUN Creatinine Creat Clearance w eGFR POC Glucometer 242.90594 Random Glucose Calcium Phosphorus Magnesium Random Vancomycin 23.8 08/20/18 08/20/18 08/20/18 05:30 05:30 06:07 WBC 9.3 RBC 2.64 L Hgb 7.8 L Hct 24.1 L MCV 91.6 MCH 29.7 MCHC 32.5 RDW 16.0 H Plt Count 139 D MPV 7.9 Absolute Neuts (auto) 7.4 Neutrophils % 79.7 Lymphocytes % 8.4 Monocytes % 11.1 H Eosinophils % 0.4 Basophils % 0.4 Nucleated RBC % 0 PTT (Actin FS) Sodium 136 Potassium 4.5 Chloride 106 Carbon Dioxide 19 L Anion Gap 12 BUN 73 H Creatinine 4.3 H Creat Clearance w eGFR 14.36 POC Glucometer 256.18011 Random Glucose 227 H Calcium 7.9 L Phosphorus 5.1 H Magnesium 2.4 Random Vancomycin 08/20/18 09:26 WBC RBC Hgb Hct MCV MCH MCHC RDW Plt Count MPV Absolute Neuts (auto) Neutrophils % Lymphocytes % Monocytes % Eosinophils % Basophils % Nucleated RBC % PTT (Actin FS) Sodium Potassium Chloride Carbon Dioxide Anion Gap BUN Creatinine Creat Clearance w eGFR POC Glucometer 240.30033 Random Glucose Calcium Phosphorus Magnesium Random Vancomycin Microbiology 08/17/18 14:10 Blood - Peripheral Venous Blood Culture - Preliminary NO GROWTH OBTAINED AFTER 48 HOURS, INCUBATION TO CONTINUE FOR 3 DAYS. 08/17/18 14:25 Blood - Peripheral Venous Blood Culture - Preliminary NO GROWTH OBTAINED AFTER 48 HOURS, INCUBATION TO CONTINUE FOR 3 DAYS. 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, abnormal stress test in 06/2017, Left ureteral stone with hydronenphrosis s/p recent stenting, comes with sepsis after left toenail removal and noted with elevated troponin -Septic shock, suspect from left toe infection, cellulitis, r/o osteomyelitis -Elevated troponin, NSTEMI vs Demand type II in the setting of above -Acute systolic heart failure exacerbation in the setting fluid resuscitation and NC -Acute hypoxemic respiratory failure -NSVT/PVCs/Ventricular trigeminy -Thrombocytopenia, likely from sepsis -CAD s/p CABG, ICD -HTN -HLD -IDDM on insulin pump -CKD stage IV Plan: Still dyspneic/hypoxic. Additional lasix 80 mg IV x 1, High flow oxygen. Strict I/Os and hemodynamics monitoring. Off IVF. Nephrology input noted, monitor renal function ID input noted/Meropenem/vancomycin day 3, renal dosing. FOr bone scan as hemodynamics permit. Follow up cultures. Podiatry input noted, further imaging and surgical plan when hemodynamics improve. Cardiology input noted. Heparin drip, 2D echo noted. Needs cardiac risk stratification when improved, however, renal function limiting factor. Off insulin pump for now. ISS, diabetic diet. Standing insulin based on blood sugars. Endocrine input noted. ASA/plavix/ranexa/statin/clonidine. less PVC/VT after coreg resumption. Plan discussed with patient, all questions answered. Care co-ordinated with ICU, cardiology, podiatry. Total critical care time spent 35 min.
[2018-08-20 13:14] LABS: BASO % 0.3 % (0-2.0); EOS % 0.6 % (0-4.5); HEMATOCRIT 22.1 % (35.4-49); HEMOGLOBIN 7.8 GM/dL (11.7-16.9); LYMPH % 11.5 % (8-40); MCH 31.2 pg (25.7-33.7); MCHC 35.1 g/dl (32.0-35.9); MEAN PLT VOLUME 7.4 fl (7.5-11.1); MONO % 12.9 % (3.8-10.2); NEUT % 74.7 % (42.8-82.8); PLATELET COUNT 150 K/MM3 (134-434); RBC 2.49 M/mm3 (4.00-5.60); RDW 15.7 % (11.9-15.9); WHITE BLOOD COUNT 4.7 K/mm3 (4.0-10.0)
[2018-08-20 13:34] LABS: N-TERMINAL BNP 24859.6 pg/ml (5-125)
--- NOTE | 2018-08-20 13:53 | PN ---
Progress Note (short form) - Note Progress Note: Renal follow up for HECTOR on CKD Pt seen and examined at the bedside having a nose bleed has some sob, not worse then yesterday s/p IV lasix yesterday and this am no CP, abd pain Vital Signs Temperature 98.6 F 08/20/18 10:00 Pulse Rate 88 08/20/18 12:00 Respiratory Rate 18 08/20/18 12:00 Blood Pressure 152/65 08/20/18 12:00 O2 Sat by Pulse Oximetry (%) 96 08/20/18 08:00 Intake & Output 08/17/18 08/18/18 08/19/18 08/20/18 23:59 23:59 23:59 23:59 Intake Total 2200 4755 4354 300 Output Total 200 0423 515 6341 Balance 2000 2955 3654 -700 Weight 130.635 kg 131 kg 132.903 kg 132.449 kg NAD awake and alert + LE edema CBC, BMP 08/20/18 12:55 08/20/18 05:30 Current Medications Acetaminophen (Tylenol -) 650 mg PO Q4H PRN PRN Reason: FEVER Last Admin: 08/19/18 15:07 Dose: 650 mg Aspirin (Asa -) 81 mg PO DAILY [facility] Last Admin: 08/20/18 09:55 Dose: 81 mg Atorvastatin Calcium (Lipitor -) 80 mg PO HS [facility] Last Admin: 08/19/18 21:39 Dose: 80 mg Carvedilol (Coreg -) 25 mg PO BID [facility] Last Admin: 08/20/18 09:55 Dose: 25 mg Chlorhexidine Gluconate (Hibiclens For Decolonization -) 1 applic TP HS [facility] Last Admin: 08/19/18 21:39 Dose: 1 applic Clopidogrel Bisulfate (Plavix -) 75 mg PO DAILY [facility] Last Admin: 08/20/18 09:56 Dose: 75 mg Fluticasone Propionate (Flonase -) 1 spray NS BID [facility] Last Admin: 08/20/18 12:01 Dose: 1 spray Guaifenesin/Codeine Phosphate (Robitussin Ac -) 5 ml PO Q8H PRN PRN Reason: COUGH Last Admin: 08/20/18 13:15 Dose: 5 ml Heparin Sodium (Porcine) (Heparin -) 5,000 unit SQ TID [facility] Last Admin: 08/20/18 13:09 Dose: Not Given Meropenem 500 mg/ Dextrose 100 mls @ 200 mls/hr IVPB Q12H [facility] Last Admin: 08/20/18 06:33 Dose: 200 mls/hr Insulin Aspart (Novolog Vial Sliding Scale -) 1 vial SQ HS [facility]; Protocol Insulin Aspart (Novolog Vial Sliding Scale -) 1 vial SQ TIDAC [facility]; Protocol Last Admin: 08/20/18 13:20 Dose: 8 units Insulin Detemir (Levemir Vial) 12 units SQ HS [facility] Lactobacillus Acidophilus (Bacid -) 1 tab PO DAILY [facility] Last Admin: 08/20/18 09:55 Dose: 1 tab Mupirocin (Bactroban Ointment (For Decolonization) -) 1 applic NS BID [facility] Stop: 08/22/18 21:59 Last Admin: 08/20/18 09:57 Dose: 1 applic Mupirocin (Bactroban 2% Ointment -) 1 applic TP DAILY [facility] Last Admin: 08/20/18 09:56 Dose: 1 applic [id number] Ethyl Esters (Lovaza -) 2 gm PO BID [facility] Last Admin: 08/20/18 09:55 Dose: 2 gm Ranitidine HCl (Zantac -) 150 mg PO BID [facility] Last Admin: 08/20/18 09:56 Dose: 150 mg Ranolazine (Ranexa -) 500 mg PO BID [facility] Last Admin: 08/20/18 09:56 Dose: 500 mg Sodium Chloride ([place] Nasal [place] -) 2 spray NS TID PRN PRN Reason: NASAL CONGESTION Last Admin: 08/20/18 12:02 Dose: 2 spray 57 year old gentleman with hx of 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 #HECTOR on CKD secondary to renal hypoprofuison in setting of sepsis vs. obstruction #Sepsis syndrome from soft tissue infection r/o bacteremia #NSTEMI vs. Demand ischemia #Acute on chronic anemia #Hx of Hypertension #Lactic acidosis now resolved #Hypocalcemia Renal function stable at this time Continue IV lasix as needed for volume management no acute indication for DATA MODELER BIPAP as needed maintain MAP > 65 Cardiology follow up Abx as per DANO Pendleton DO
--- NOTE | 2018-08-20 15:31 | PN ---
Progress Note, Physician History of Present Illness: Awake Supine in bed c/o L foot and leg pain Temps down today after spike to 103 24hr ago WBC WNL vancomycin T 23.8 Cultures prelim no growth - Current Medication List Current Medications: Active Medications Acetaminophen (Tylenol -) 650 mg PO Q4H PRN PRN Reason: FEVER Last Admin: 08/19/18 15:07 Dose: 650 mg Aspirin (Asa -) 81 mg PO DAILY [facility] Last Admin: 08/20/18 09:55 Dose: 81 mg Atorvastatin Calcium (Lipitor -) 80 mg PO HS [facility] Last Admin: 08/19/18 21:39 Dose: 80 mg Carvedilol (Coreg -) 25 mg PO BID [facility] Last Admin: 08/20/18 09:55 Dose: 25 mg Chlorhexidine Gluconate (Hibiclens For Decolonization -) 1 applic TP HS [facility] Last Admin: 08/19/18 21:39 Dose: 1 applic Clopidogrel Bisulfate (Plavix -) 75 mg PO DAILY [facility] Last Admin: 08/20/18 09:56 Dose: 75 mg Fluticasone Propionate (Flonase -) 1 spray NS BID [facility] Last Admin: 08/20/18 12:01 Dose: 1 spray Guaifenesin/Codeine Phosphate (Robitussin Ac -) 5 ml PO Q8H PRN PRN Reason: COUGH Last Admin: 08/20/18 13:15 Dose: 5 ml Heparin Sodium (Porcine) (Heparin -) 5,000 unit SQ TID [facility] Last Admin: 08/20/18 13:09 Dose: Not Given Meropenem 500 mg/ Dextrose 100 mls @ 200 mls/hr IVPB Q12H [facility] Last Admin: 08/20/18 06:33 Dose: 200 mls/hr Insulin Aspart (Novolog Vial Sliding Scale -) 1 vial SQ [facility]; Protocol Insulin Aspart (Novolog Vial Sliding Scale -) 1 vial SQ TIDAC [facility]; Protocol Last Admin: 08/20/18 13:20 Dose: 8 units Insulin Detemir (Levemir Vial) 12 units SQ HS [facility] Lactobacillus Acidophilus (Bacid -) 1 tab PO DAILY [facility] Last Admin: 08/20/18 09:55 Dose: 1 tab Mupirocin (Bactroban Ointment (For Decolonization) -) 1 applic NS BID [facility] Stop: 08/22/18 21:59 Last Admin: 08/20/18 09:57 Dose: 1 applic Mupirocin (Bactroban 2% Ointment -) 1 applic TP DAILY [facility] Last Admin: 08/20/18 09:56 Dose: 1 applic [id number] Ethyl Esters (Lovaza -) 2 gm PO BID [facility] Last Admin: 08/20/18 09:55 Dose: 2 gm Ranitidine HCl (Zantac -) 150 mg PO BID [facility] Last Admin: 08/20/18 09:56 Dose: 150 mg Ranolazine (Ranexa -) 500 mg PO BID [facility] Last Admin: 08/20/18 09:56 Dose: 500 mg Sodium Chloride ([place] Nasal [place] -) 2 spray NS TID PRN PRN Reason: NASAL CONGESTION Last Admin: 08/20/18 12:02 Dose: 2 spray - Objective Vital Signs: Vital Signs Temperature 98.9 F 08/20/18 14:00 Pulse Rate 83 08/20/18 14:00 Respiratory Rate 18 08/20/18 14:00 Blood Pressure 136/65 08/20/18 14:00 O2 Sat by Pulse Oximetry (%) 96 08/20/18 08:00 Constitutional: Yes: Obese Cardiovascular: Yes: Regular Rate and Rhythm, S1, S2 Respiratory: Yes: Diminished Gastrointestinal: Yes: Normal Bowel Sounds, Soft, Abdomen, Obese. No: Tenderness Extremities: Yes: Other (decreased erythema 2nd toe) Labs: CBC, BMP 08/20/18 12:55 08/20/18 05:30 INR, PTT INR 1.23 (0.83-1.09) H 08/18/18 08:05 Assessment/Plan Sepsis Cellulitis L 2nd toe/ distal L LE Renal failure Diabetes mellitus vancomycin redosed Check trough am Continue meropenem
--- NOTE | 2018-08-20 15:51 | PN ---
Physical Exam: SUBJECTIVE: Patient seen and examined OBJECTIVE: Vital Signs Period Temp Pulse Resp BP Sys/Gallo Pulse Ox Last 24 Hr 98.1 F-98.9 F 69-88 16-29 104-152/35-88 96-96 GENERAL: The patient is awake, alert, and fully oriented, in no acute distress. HEAD: Normal with no signs of trauma. EYES: PERRL, extraocular movements intact, sclera anicteric, conjunctiva clear. No ptosis. ENT: Ears normal, nares patent, oropharynx clear without exudates, moist mucous membranes. NECK: Trachea midline, full range of motion, supple. LUNGS: Breath sounds equal, clear to auscultation bilaterally, no wheezes, no crackles, no accessory muscle use. HEART: Regular rate and rhythm, S1, S2 without murmur, rub or gallop. ABDOMEN: Soft, nontender, nondistended, normoactive bowel sounds, no guarding, no rebound, no hepatosplenomegaly, no masses. EXTREMITIES: 2+ pulses, warm, well-perfused, no edema. NEUROLOGICAL: Cranial nerves II through XII grossly intact. Normal speech, gait not observed. PSYCH: Normal mood, normal affect. SKIN: Warm, dry, normal turgor, no rashes or lesions noted Laboratory Results - last 24 hr 08/19/18 08/19/18 08/19/18 14:06 16:40 21:39 WBC RBC Hgb Hct MCV MCH MCHC RDW Plt Count MPV Absolute Neuts (auto) Neutrophils % Lymphocytes % Monocytes % Eosinophils % Basophils % Nucleated RBC % PTT (Actin FS) Sodium Potassium Chloride Carbon Dioxide Anion Gap BUN Creatinine Creat Clearance w eGFR POC Glucometer 103.82978 115.92221 287.53874 Random Glucose Calcium Phosphorus Magnesium B-Natriuretic Peptide Random Vancomycin 08/20/18 08/20/18 08/20/18 01:10 05:30 05:30 WBC RBC Hgb Hct MCV MCH MCHC RDW Plt Count MPV Absolute Neuts (auto) Neutrophils % Lymphocytes % Monocytes % Eosinophils % Basophils % Nucleated RBC % PTT (Actin FS) 17.9 L Sodium Potassium Chloride Carbon Dioxide Anion Gap BUN Creatinine Creat Clearance w eGFR POC Glucometer 242.51879 Random Glucose Calcium Phosphorus Magnesium B-Natriuretic Peptide Random Vancomycin 23.8 08/20/18 08/20/18 08/20/18 05:30 05:30 06:07 WBC 9.3 RBC 2.64 L Hgb 7.8 L Hct 24.1 L MCV 91.6 MCH 29.7 MCHC 32.5 RDW 16.0 H Plt Count 139 D MPV 7.9 Absolute Neuts (auto) 7.4 Neutrophils % 79.7 Lymphocytes % 8.4 Monocytes % 11.1 H Eosinophils % 0.4 Basophils % 0.4 Nucleated RBC % 0 PTT (Actin FS) Sodium 136 Potassium 4.5 Chloride 106 Carbon Dioxide 19 L Anion Gap 12 BUN 73 H Creatinine 4.3 H Creat Clearance w eGFR 14.36 POC Glucometer 256.88932 Random Glucose 227 H Calcium 7.9 L Phosphorus 5.1 H Magnesium 2.4 B-Natriuretic Peptide 04883.6 H Random Vancomycin 08/20/18 08/20/18 08/20/18 09:26 12:55 12:59 WBC 4.7 RBC 2.49 L Hgb 7.8 L Hct 22.1 L MCV 89.0 MCH 31.2 MCHC 35.1 RDW 15.7 Plt Count 150 MPV 7.4 L Absolute Neuts (auto) 3.5 Neutrophils % 74.7 Lymphocytes % 11.5 D Monocytes % 12.9 H Eosinophils % 0.6 Basophils % 0.3 Nucleated RBC % 0 PTT (Actin FS) Sodium Potassium Chloride Carbon Dioxide Anion Gap BUN Creatinine Creat Clearance w eGFR POC Glucometer 240.58244 302.81209 Random Glucose Calcium Phosphorus Magnesium B-Natriuretic Peptide Random Vancomycin Active Medications Generic Name Dose Route Start Last Admin Trade Name Freq PRN Reason Stop Dose Admin Acetaminophen 650 mg 08/17/18 18:08 08/19/18 15:07 Tylenol - PO 650 mg Q4H PRN Administration FEVER Aspirin 81 mg 08/18/18 10:00 08/20/18 09:55 Asa - PO 81 mg DAILY [facility] Administration Atorvastatin Calcium 80 mg 08/17/18 22:00 08/19/18 21:39 Lipitor - PO 80 mg HS [facility] Administration Carvedilol 25 mg 08/18/18 22:00 08/20/18 09:55 Coreg - PO 25 mg BID [facility] Administration Chlorhexidine Gluconate 1 applic 08/17/18 22:00 08/19/18 21:39 Hibiclens For Decolonization - TP 1 applic HS [facility] Administration Clopidogrel Bisulfate 75 mg 08/18/18 10:00 08/20/18 09:56 Plavix - PO 75 mg DAILY [facility] Administration Fluticasone Propionate 1 spray 08/20/18 11:15 08/20/18 12:01 Flonase - NS 1 spray BID [facility] Administration Guaifenesin/Codeine Phosphate 5 ml 08/19/18 15:05 08/20/18 13:15 Robitussin Ac - PO 5 ml Q8H PRN Administration COUGH Heparin Sodium (Porcine) 5,000 unit 08/19/18 14:00 08/20/18 13:09 Heparin - SQ Not Given TID [facility] Meropenem 500 mg/ Dextrose 100 mls @ 200 mls/hr 08/17/18 18:45 08/20/18 06:33 IVPB 200 mls/hr Q12H [facility] Administration Insulin Aspart 1 vial 08/20/18 22:00 Novolog Vial Sliding Scale - SQ HS [facility] Protocol Insulin Aspart 1 vial 08/20/18 12:45 08/20/18 13:20 Novolog Vial Sliding Scale - SQ 8 units TIDAC [facility] Administration Protocol Insulin Detemir 12 units 08/20/18 22:00 Levemir Vial SQ HS [facility] Lactobacillus Acidophilus 1 tab 08/19/18 10:00 08/20/18 09:55 Bacid - PO 1 tab DAILY [facility] Administration Mupirocin 1 applic 08/17/18 22:00 08/20/18 09:57 Bactroban Ointment (For Decolonization) - NS 08/22/18 21:59 1 applic BID [facility] Administration Mupirocin 1 applic 08/20/18 10:00 08/20/18 09:56 Bactroban 2% Ointment - TP 1 applic DAILY [facility] Administration [id number] Ethyl Esters 2 gm 08/17/18 22:00 08/20/18 09:55 Lovaza - PO 2 gm BID [facility] Administration Ranitidine HCl 150 mg 08/17/18 22:00 08/20/18 09:56 Zantac - PO 150 mg BID [facility] Administration Ranolazine 500 mg 08/17/18 22:00 08/20/18 09:56 Ranexa - PO 500 mg BID [facility] Administration Sodium Chloride 2 spray 08/20/18 11:06 08/20/18 12:02 [place] Nasal [place] - NS 2 spray TID PRN Administration NASAL CONGESTION ASSESSMENT/PLAN:
--- NOTE | 2018-08-20 18:19 | PN ---
Progress Note, Physician History of Present Illness: OOB to chair on [place], afebrile, no further NSVT back on carvedilol. - Current Medication List Current Medications: Active Medications Acetaminophen (Tylenol -) 650 mg PO Q4H PRN PRN Reason: FEVER Last Admin: 08/19/18 15:07 Dose: 650 mg Aspirin (Asa -) 81 mg PO DAILY [facility] Last Admin: 08/20/18 09:55 Dose: 81 mg Atorvastatin Calcium (Lipitor -) 80 mg PO HS [facility] Last Admin: 08/19/18 21:39 Dose: 80 mg Carvedilol (Coreg -) 25 mg PO BID [facility] Last Admin: 08/20/18 09:55 Dose: 25 mg Chlorhexidine Gluconate (Hibiclens For Decolonization -) 1 applic TP HS [facility] Last Admin: 08/19/18 21:39 Dose: 1 applic Clopidogrel Bisulfate (Plavix -) 75 mg PO DAILY [facility] Last Admin: 08/20/18 09:56 Dose: 75 mg Fluticasone Propionate (Flonase -) 1 spray NS BID [facility] Last Admin: 08/20/18 12:01 Dose: 1 spray Guaifenesin/Codeine Phosphate (Robitussin Ac -) 5 ml PO Q8H PRN PRN Reason: COUGH Last Admin: 08/20/18 13:15 Dose: 5 ml Heparin Sodium (Porcine) (Heparin -) 5,000 unit SQ TID [facility] Last Admin: 08/20/18 13:09 Dose: Not Given Meropenem 500 mg/ Dextrose 100 mls @ 200 mls/hr IVPB Q12H [facility] Last Admin: 08/20/18 06:33 Dose: 200 mls/hr Insulin Aspart (Novolog Vial Sliding Scale -) 1 vial SQ HS [facility]; Protocol Insulin Aspart (Novolog Vial Sliding Scale -) 1 vial SQ TIDAC [facility]; Protocol Last Admin: 08/20/18 17:09 Dose: 8 units Insulin Detemir (Levemir Vial) 12 units SQ HS [facility] Lactobacillus Acidophilus (Bacid -) 1 tab PO DAILY [facility] Last Admin: 08/20/18 09:55 Dose: 1 tab Mupirocin (Bactroban Ointment (For Decolonization) -) 1 applic NS BID [facility] Stop: 08/22/18 21:59 Last Admin: 08/20/18 09:57 Dose: 1 applic Mupirocin (Bactroban 2% Ointment -) 1 applic TP DAILY [facility] Last Admin: 08/20/18 09:56 Dose: 1 applic [id number] Ethyl Esters (Lovaza -) 2 gm PO BID [facility] Last Admin: 08/20/18 09:55 Dose: 2 gm Ranitidine HCl (Zantac -) 150 mg PO BID [facility] Last Admin: 08/20/18 09:56 Dose: 150 mg Ranolazine (Ranexa -) 500 mg PO BID [facility] Last Admin: 08/20/18 09:56 Dose: 500 mg Sodium Chloride ([place] Nasal [place] -) 2 spray NS TID PRN PRN Reason: NASAL CONGESTION Last Admin: 08/20/18 12:02 Dose: 2 spray - Objective Vital Signs: Vital Signs Temperature 98.5 F 08/20/18 18:00 Pulse Rate 77 08/20/18 18:00 Respiratory Rate 20 08/20/18 18:00 Blood Pressure 126/72 08/20/18 18:00 O2 Sat by Pulse Oximetry (%) 96 08/20/18 08:00 Constitutional: Yes: No Distress, Calm Neck: Yes: Supple Cardiovascular: Yes: Regular Rate and Rhythm Respiratory: Yes: Regular, Diminished, On Nasal O2 Gastrointestinal: Yes: Normal Bowel Sounds, Soft, Abdomen, Obese Edema: No Labs: CBC, BMP 08/20/18 12:55 08/20/18 05:30 INR, PTT INR 1.23 (0.83-1.09) H 08/18/18 08:05 - ....Imaging Chest X-ray: Report Reviewed (Stable congestion) EKG: Report Reviewed (Tele: SR, decreased NSVT) Problem List - Problems (1) NSTEMI (non-ST elevated myocardial infarction) Code(s): I21.4 - NON-ST ELEVATION (NSTEMI) MYOCARDIAL INFARCTION (2) Sepsis Code(s): A41.9 - SEPSIS, UNSPECIFIED ORGANISM Qualifiers: Sepsis type: sepsis due to unspecified organism Qualified Code(s): A41.9 - Sepsis, unspecified organism (3) Acute on chronic kidney failure Code(s): N17.9 - ACUTE KIDNEY FAILURE, UNSPECIFIED; N18.9 - CHRONIC KIDNEY DISEASE, UNSPECIFIED Qualifiers: Acute renal failure type: unspecified Chronic kidney disease stage: unspecified stage Qualified Code(s): N17.9 - Acute kidney failure, unspecified ; N18.9 - Chronic kidney disease, unspecified (4) Acute on chronic systolic (congestive) heart failure Code(s): I50.23 - ACUTE ON CHRONIC SYSTOLIC (CONGESTIVE) HEART FAILURE (5) Dyspnea due to congestive heart failure Code(s): I50.9 - HEART FAILURE, UNSPECIFIED (6) Elevated troponin Code(s): R79.89 - OTHER SPECIFIED ABNORMAL FINDINGS OF BLOOD CHEMISTRY (7) HLD (hyperlipidemia) Code(s): E78.5 - HYPERLIPIDEMIA, UNSPECIFIED Qualifiers: Hyperlipidemia type: pure hypercholesterolemia Qualified Code(s): E78.00 - Pure hypercholesterolemia, unspecified (8) HTN (hypertension) Code(s): I10 - ESSENTIAL (PRIMARY) HYPERTENSION Qualifiers: Hypertension type: essential hypertension Qualified Code(s): I10 - Essential (primary) hypertension (9) History of coronary artery stent placement Code(s): Z95.5 - PRESENCE OF CORONARY ANGIOPLASTY IMPLANT AND GRAFT (10) Hx of CABG Code(s): Z95.1 - PRESENCE OF AORTOCORONARY BYPASS GRAFT (11) ICD (implantable cardioverter-defibrillator) in place Code(s): Z95.810 - PRESENCE OF AUTOMATIC (IMPLANTABLE) CARDIAC DEFIBRILLATOR (12) Systolic heart failure Code(s): I50.20 - UNSPECIFIED SYSTOLIC (CONGESTIVE) HEART FAILURE Qualifiers: Heart failure chronicity: acute on chronic Qualified Code(s): I50.23 - Acute on chronic systolic (congestive) heart failure (13) Sleep apnea Code(s): G47.30 - SLEEP APNEA, UNSPECIFIED Qualifiers: Sleep apnea type: obstructive Qualified Code(s): G47.33 - Obstructive sleep apnea (adult) (pediatric) Assessment/Plan 08/18/2018 Echo: Poor windows 1. Elevated troponin likely represents demand ischemia with underlying history of systolic LV dysfunction and CKD 2. CKD stage 4 with diabetic nephropathy 3. Acute on chronic LV systolic failure 4. Aortic valve disease/ 5. CAD, history of IN, s/p CABG, s/p PCI/stent, angina pectoris 6. HTN 7. Hypercholesterolemia 8. Post ICD implant for primary prophylaxis 9. Anemia 10. Gout 11. OSAS on CPAP 12. Sepsis referable to left foot wound 13. IDDM on insulin pump 14. Probable Sleep Disordered Breathing 15. NSVT 16. Sleep disordered breathing PLAN: 1. Empiric antibiotics coverage f/u C&S 2. IV diuresis with monitor diuretic response, renal fxn and electrolytes 3. Continue ASA 81 qd and Plavix 75 qd 4. Continue Ranexa 500 bid 5. Continue Carvedilol 25 mg BID 6. Resume Entresto 49/51 mg BID once renal function stabilized 7. Continue Lipitor 80 qhs and Lovaza 2 bid 8. Agree with observe off Clonidine 0.3 TD Q7D 9. Echocardiography report noted. Will review images 10. Continue ICU monitoring, keep K>4.5 Mg>2.5 11. CPAP QHS and PRN, O2 as needed, DVT and GI prophylaxis
--- NOTE | 2018-08-20 18:22 | EKG ---
Test Reason : Blood Pressure : / mmHG Vent. Rate : 079 BPM Atrial Rate : 079 BPM P-R Int : 202 ms QRS Dur : 100 ms QT Int : 392 ms P-R-T Axes : 069 031 153 degrees QTc Int : 449 ms NORMAL SINUS RHYTHM NONSPECIFIC T WAVE ABNORMALITY ABNORMAL ECG WHEN COMPARED WITH ECG OF 17-AUG-2018 14:29, NO SIGNIFICANT CHANGE WAS FOUND Confirmed by LUBNA TUCKER MD ([id number]) on 08/20/2018 6:21:44 PM Referred By: NANO CHACON Confirmed By:LUBNA TUCKER MD
[2018-08-20] MEDS ORDERED: INSULIN (LEVEMIR) 100 UNITS/ML UNITS SQ SCH (22:00)
[2018-08-20] MEDS: ATORVASTATIN CA 80 MG TABLET (FP) PO SCH (22:15)
[2018-08-20] MEDS: CHLORHEXIDINE GLUCONATE 4% CLEANSER FOR DECOLONIZATION TP SCH (22:16)
[2018-08-21] MEDS: ACETAMINOPHEN 325 MG TABLET (FP) PO PRN ×2 (04:30→21:29)
[2018-08-21] MEDS: HEPARIN NA (PORCINE) 5,000 UNITS/ML 1ML VIAL SQ SCH ×3 (05:12→21:28)
[2018-08-21] MEDS: guaiFENesin/CODEINE 5 ML UNIT-DOSE CUPS PO PRN (05:40)
[2018-08-21] MEDS: MEROPENEM 500 MG in DEXTROSE 5%-WATER 100 ML IVPB SCH ×2 (05:46→18:42)
[2018-08-21 05:50] LABS: BASO % 0.4 % (0-2.0); EOS % 1.7 % (0-4.5); HEMATOCRIT 22.2 % (35.4-49); HEMOGLOBIN 7.3 GM/dL (11.7-16.9); LYMPH % 13.2 % (8-40); MCH 29.6 pg (25.7-33.7); MCHC 32.7 g/dl (32.0-35.9); MEAN CELL VOLUME 90.5 fl (80-96); MEAN PLT VOLUME 7.5 fl (7.5-11.1); MONO % 12.3 % (3.8-10.2); NEUT % 72.4 % (42.8-82.8); PLATELET COUNT 137 K/MM3 (134-434); RBC 2.45 M/mm3 (4.00-5.60); RDW 15.6 % (11.9-15.9); WHITE BLOOD COUNT 4.6 K/mm3 (4.0-10.0)
[2018-08-21 06:28] LABS: ANION GAP 9 MMOL/L (8-16); BLOOD UREA NITROGEN 75 mg/dL (7-18); CALCIUM 7.8 mg/dL (8.5-10.1); CHLORIDE 103 mmol/L (98-107); CO2 22 mmol/L (21-32); CREATININE 4.3 mg/dL (0.55-1.3); GLUCOSE,RANDOM 296 mg/dL (74-106); MAGNESIUM 2.4 mg/dL (1.8-2.4); PHOSPHOROUS 5.3 mg/dL (2.5-4.9); POTASSIUM 4.2 mmol/L (3.5-5.1); SODIUM 134 mmol/L (136-145)
[2018-08-21] MEDS: INSULIN SLIDING SCALE (NOVOLOG) 1 VIAL SQ SCH ×4 (06:47→21:49)
--- NOTE | 2018-08-21 07:17 | PN ---
Progress Note (short form) - Note Progress Note: Chief Complaint: Events noted, notes reviewed, reports worsening rest and exertional dyspnea, denies chest pain History of Present Illness: Seen and examined and examined in the ICU. Events noted, notes reviewed, reports worsening rest and exertional dyspnea, denies chest pain Echocardiography report noted, sub-optimal study - Current Medication List Current Medications Acetaminophen (Tylenol -) 650 mg PO Q4H PRN PRN Reason: FEVER Last Admin: 08/21/18 04:30 Dose: 650 mg Aspirin (Asa -) 81 mg PO DAILY [facility] Last Admin: 08/20/18 09:55 Dose: 81 mg Atorvastatin Calcium (Lipitor -) 80 mg PO HS [facility] Last Admin: 08/20/18 22:15 Dose: 80 mg Carvedilol (Coreg -) 25 mg PO BID [facility] Last Admin: 08/20/18 22:15 Dose: 25 mg Chlorhexidine Gluconate (Hibiclens For Decolonization -) 1 applic TP [facility] Last Admin: 08/20/18 22:16 Dose: 1 applic Clopidogrel Bisulfate (Plavix -) 75 mg PO DAILY [facility] Last Admin: 08/20/18 09:56 Dose: 75 mg Fluticasone Propionate (Flonase -) 1 spray NS BID [facility] Last Admin: 08/20/18 22:18 Dose: 1 spray Guaifenesin/Codeine Phosphate (Robitussin Ac -) 5 ml PO Q8H PRN PRN Reason: COUGH Last Admin: 08/21/18 05:40 Dose: 5 ml Heparin Sodium (Porcine) (Heparin -) 5,000 unit SQ TID [facility] Last Admin: 08/21/18 05:12 Dose: Not Given Meropenem 500 mg/ Dextrose 100 mls @ 200 mls/hr IVPB Q12H [facility] Last Admin: 08/21/18 05:46 Dose: 200 mls/hr Insulin Aspart (Novolog Vial Sliding Scale -) 1 vial SQ HS [facility]; Protocol Last Admin: 08/20/18 22:18 Dose: 8 unit Insulin Aspart (Novolog Vial Sliding Scale -) 1 vial SQ TIDAC [facility]; Protocol Last Admin: 08/21/18 06:47 Dose: 8 units Insulin Detemir (Levemir Vial) 12 units SQ [facility] Last Admin: 08/20/18 22:16 Dose: 12 unit Lactobacillus Acidophilus (Bacid -) 1 tab PO DAILY [facility] Last Admin: 08/20/18 09:55 Dose: 1 tab Mupirocin (Bactroban Ointment (For Decolonization) -) 1 applic NS BID [facility] Stop: 08/22/18 21:59 Last Admin: 08/20/18 22:15 Dose: 1 applic Mupirocin (Bactroban 2% Ointment -) 1 applic TP DAILY [facility] Last Admin: 08/20/18 09:56 Dose: 1 applic [id number] Ethyl Esters (Lovaza -) 2 gm PO BID [facility] Last Admin: 08/20/18 22:15 Dose: 2 gm Ranitidine HCl (Zantac -) 150 mg PO BID [facility] Last Admin: 08/20/18 22:15 Dose: 150 mg Ranolazine (Ranexa -) 500 mg PO BID [facility] Last Admin: 08/20/18 22:15 Dose: 500 mg Sodium Chloride ([place] Nasal [place] -) 2 spray NS TID PRN PRN Reason: NASAL CONGESTION Last Admin: 08/20/18 12:02 Dose: 2 spray Review of Systems Constitutional: denies: Chills, Fever Cardiovascular: As Noted Above Respiratory: denies: Cough or Sputum Production Gastrointestinal: denies: Nausea, Vomiting, Constipation or Abdominal Pain Genitourinary: denies: Dysuria Musculoskeletal: No Symptoms Reported Neurological: denies: Dizziness, Headache - Objective Vital Signs: Last Vital Signs Temp Pulse Resp BP Pulse Ox 98.8 F 57 L 17 133/68 96 08/21/18 06:00 08/21/18 06:00 08/21/18 06:00 08/21/18 04:00 08/20/18 21:00 Intake & Output 08/18/18 08/19/18 08/20/18 08/21/18 23:59 23:59 23:59 23:59 Intake Total 4755 4354 1100 300 Output Total 6023 099 6882 1300 Balance 2955 3654 -1000 -1000 Weight 288 lb 12.889 oz 293 lb 292 lb Neck: Supple Negative JVD Cardiovascular: S1 S2 Regular Rate and Rhythm Grade 2-3/6 LOAN Respiratory: Diminished Breath Sounds Bilaterally Gastrointestinal: Soft Benign Normal Bowel Sounds Ext: Bilateral Edema Labs: Troponin, BNP 08/20/18 05:30 B-Natriuretic Peptide 59999.6 H CBC, BMP 08/21/18 05:15 08/21/18 05:15 Hepatic Panel Total Bilirubin 0.8 mg/dL (0.2-1) 08/19/18 05:15 AST 83 U/L (15-37) H 08/19/18 05:15 ALT 41 U/L (13-61) 08/19/18 05:15 Alkaline Phosphatase 77 U/L (45-117) 08/19/18 05:15 Albumin 2.5 g/dl (3.4-5.0) L 08/19/18 05:15 Assessment/Plan ASSESSMENT: 1. Acute on chronic class III-IV NYHA classification LV failure related to LV systolic dysfunction 2. CAD post NC/CABG, PCI/stent, demand ischemic injury history of an abnormal MPI study angina pectoris 3. Aortic stenosis, mild 4. HTN 5. IDDM 6. Hypercholesterolemia 7. Post prophylactic ICD implant, NSVT 8. CKD with acute exacerbation 9. Anemia, dropping Hg 10. Gout 11. Obstructive sleep apnea PLAN: 1. Administer Xaroxolyn and Lasix this AM with close monitoring renal function and electrolytes, depending on clinical response/urine output may need to initiate to Lasix drip +/- Dobutamine 2. Continue Coreg 3. Recommend Entresto resumption once renal function at baseline with close monitoring renal function and electrolytes 4. Continue Ranexa 5. Defer Clonidine re-initiation 6. Continue Lipitor 7. Continue Plavix and ASA with caution in view of the above noted anemia, may need to transfuse to maintain Hg equal or > 8.0 8. Antibiotics as per the primary team 9. Plan to pursue medical management and therapy optimization and deferring any invasive strategy in view of the above noted CKD with acute exacerbation Bridgett Mullen M.D.
[2018-08-21] MEDS ORDERED: METOLAZONE 5 MG TABLET PO ONE (07:37)
[2018-08-21] MEDS ORDERED: FUROSEMIDE 40 MG/4 ML INJECTABLE VIAL IVPUSH ONE (08:15)
--- NOTE | 2018-08-21 08:38 | PN ---
Physical Exam: SUBJECTIVE: Patient seen and examined at bedside. States shortness of breath is worsening. Significant L calf tenderness, however US was negative for DVT. OBJECTIVE: Vital Signs Period Temp Pulse Resp BP Sys/Gallo Pulse Ox Last 24 Hr 97.3 F-98.9 F 57-88 15-24 114-152/43-71 96 GENERAL: A&Ox3, NAD HEAD: NC/AT EYES: PERRLA, EOMI EARS, NOSE, THROAT: MMM NECK: Normal range of motion, supple without lymphadenopathy LUNGS: bibasilar crackles appreciated, breathing labored, difficulty with inspiratory effort HEART: Paced rhythm, no m/r/g ABDOMEN: +bs, soft, TTP in RUQ UPPER EXTREMITIES: 2+ pulses, warm, well-perfused. No cyanosis. No clubbing. Cap refill <2 seconds. No peripheral edema. LOWER EXTREMITIES: 1+ pulses, warm, well-perfused. Distal LLE swollen. Erythematous ulcer of left second toe, receding from demarcation line. Warmth throughout left calf relative to right, left calf significantly tender. 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 Good eye contact. Appropriate mood and affect. SKIN: Warm, dry, normal turgor Laboratory Results - last 24 hr 08/20/18 08/20/18 08/20/18 05:30 09:26 12:55 WBC 4.7 RBC 2.49 L Hgb 7.8 L Hct 22.1 L MCV 89.0 MCH 31.2 MCHC 35.1 RDW 15.7 Plt Count 150 MPV 7.4 L Absolute Neuts (auto) 3.5 Neutrophils % 74.7 Lymphocytes % 11.5 D Monocytes % 12.9 H Eosinophils % 0.6 Basophils % 0.3 Nucleated RBC % 0 PTT (Actin FS) Sodium 136 Potassium 4.5 Chloride 106 Carbon Dioxide 19 L Anion Gap 12 BUN 73 H Creatinine 4.3 H Creat Clearance w eGFR 14.36 POC Glucometer 240.08704 Random Glucose 227 H Calcium 7.9 L Phosphorus 5.1 H Magnesium 2.4 B-Natriuretic Peptide 50983.6 H 08/20/18 08/21/18 08/21/18 12:59 05:15 05:15 WBC 4.6 RBC 2.45 L Hgb 7.3 L Hct 22.2 L MCV 90.5 MCH 29.6 MCHC 32.7 RDW 15.6 Plt Count 137 MPV 7.5 Absolute Neuts (auto) 3.4 Neutrophils % 72.4 Lymphocytes % 13.2 Monocytes % 12.3 H Eosinophils % 1.7 D Basophils % 0.4 Nucleated RBC % 0 PTT (Actin FS) 31.3 Sodium Potassium Chloride Carbon Dioxide Anion Gap BUN Creatinine Creat Clearance w eGFR POC Glucometer 302.99195 Random Glucose Calcium Phosphorus Magnesium B-Natriuretic Peptide 08/21/18 05:15 WBC RBC Hgb Hct MCV MCH MCHC RDW Plt Count MPV Absolute Neuts (auto) Neutrophils % Lymphocytes % Monocytes % Eosinophils % Basophils % Nucleated RBC % PTT (Actin FS) Sodium 134 L Potassium 4.2 Chloride 103 Carbon Dioxide 22 Anion Gap 9 BUN 75 H Creatinine 4.3 H Creat Clearance w eGFR 14.36 POC Glucometer Random Glucose 296 H Calcium 7.8 L Phosphorus 5.3 H Magnesium 2.4 B-Natriuretic Peptide Active Medications Generic Name Dose Route Start Last Admin Trade Name Freq PRN Reason Stop Dose Admin Acetaminophen 650 mg 08/17/18 18:08 08/21/18 04:30 Tylenol - PO 650 mg Q4H PRN Administration FEVER Aspirin 81 mg 08/18/18 10:00 08/20/18 09:55 Asa - PO 81 mg DAILY [facility] Administration Atorvastatin Calcium 80 mg 08/17/18 22:00 08/20/18 22:15 Lipitor - PO 80 mg HS [facility] Administration Carvedilol 25 mg 08/18/18 22:00 08/20/18 22:15 Coreg - PO 25 mg BID [facility] Administration Chlorhexidine Gluconate 1 applic 08/17/18 22:00 08/20/18 22:16 Hibiclens For Decolonization - TP 1 applic HS [facility] Administration Clopidogrel Bisulfate 75 mg 08/18/18 10:00 08/20/18 09:56 Plavix - PO 75 mg DAILY [facility] Administration Fluticasone Propionate 1 spray 08/20/18 11:15 08/20/18 22:18 Flonase - NS 1 spray BID [facility] Administration Guaifenesin/Codeine Phosphate 5 ml 08/19/18 15:05 08/21/18 05:40 Robitussin Ac - PO 5 ml Q8H PRN Administration COUGH Heparin Sodium (Porcine) 5,000 unit 08/19/18 14:00 08/21/18 05:12 Heparin - SQ Not Given TID [facility] Meropenem 500 mg/ Dextrose 100 mls @ 200 mls/hr 08/17/18 18:45 08/21/18 05:46 IVPB 200 mls/hr Q12H [facility] Administration Insulin Aspart 1 vial 08/20/18 22:00 08/20/18 22:18 Novolog Vial Sliding Scale - SQ 8 unit HS [facility] Administration Protocol Insulin Aspart 1 vial 08/20/18 12:45 08/21/18 06:47 Novolog Vial Sliding Scale - SQ 8 units TIDAC [facility] Administration Protocol Insulin Detemir 12 units 08/20/18 22:00 08/20/18 22:16 Levemir Vial SQ 12 unit HS [facility] Administration Lactobacillus Acidophilus 1 tab 08/19/18 10:00 08/20/18 09:55 Bacid - PO 1 tab DAILY [facility] Administration Mupirocin 1 applic 08/17/18 22:00 08/20/18 22:15 Bactroban Ointment (For Decolonization) - NS 08/22/18 21:59 1 applic BID [facility] Administration Mupirocin 1 applic 08/20/18 10:00 08/20/18 09:56 Bactroban 2% Ointment - TP 1 applic DAILY [facility] Administration [id number] Ethyl Esters 2 gm 08/17/18 22:00 08/20/18 22:15 Lovaza - PO 2 gm BID [facility] Administration Ranitidine HCl 150 mg 08/17/18 22:00 08/20/18 22:15 Zantac - PO 150 mg BID [facility] Administration Ranolazine 500 mg 08/17/18 22:00 08/20/18 22:15 Ranexa - PO 500 mg BID [facility] Administration Sodium Chloride 2 spray 08/20/18 11:06 08/20/18 12:02 [place] Nasal [place] - NS 2 spray TID PRN Administration NASAL CONGESTION ASSESSMENT/PLAN: 57 y/o M w/ PMHx IDDM (on insulin pump), HTN, HLD, CAD s/p CABG and s/p AICD, CHF, Aortic stenosis, CKD, p/w fever, rigors, malaise x 1 day, admitted to ICU for NSTEMI and sepsis. #CV -cardiology consulted, Pt's regular continuity manager is Dr. Sebas -troponins downtrended, completed heparin gtt, now on prophylactic heparin subq -congestion on CXR unchanged/worse -metolazone + IV Lasix push this AM -starting Lasix gtt + dobutamine gtt per cardiology -repeat BMP, Mg, Phos this PM -patient agrees to central line placement under ultrasound guidance if necessary for pressure support -per cardiology, ASA/Plavix, Lipitor, Lovaza, Ranexa -cardiology recommends Entresto if cleared by nephrology -maintain K > 4.5, Mg > 2 -hold further anti-hypertensives #heme -Hb fell to 7.3 -plan to transfuse 1U this PM following diuresis -repeat CBC this PM #ID -ID consulted and case discussed -avoid nephrotoxic ABx -cont meropenem as per ID -C diff studies order in light of worsening diarrhea -Pt's inside b2b sales, Dr. Harley Hall, declines to see patient in ICU -wound care and in-house podiatry consulted -no surgical intervention at this time -wound care and podiatry recommend MRI, however cardiac hardware precludes MR study -bone scan ordered, Pt requires medical stabilization first -yesterday podiatry performed bedside I&D, "minimal serous drainage noted from distal aspect of the 2nd digit" #renal/urology -nephrology following -per nephrology, "Urine Sodium low consistent with volume depletion with preserved tubular function" -Cr above CKD baseline -fluids held d/t pulm congestion -IV Lasix d/t pulm congestion -avoid nephrotoxic agents -joiner in place #pulmonary -NC titrate to >95% O2 -flonase/ocean NS #endocrinology -endocrinology following -off insulin pump -tight BGM and SSI + levemir per endocrinology #FEN -no IVF, Lasix as needed -monitor and correct electrolytes -diabetic diet #PPx -DVT: heparin subq -GI: Zantac #code -full #dispo -cont to monitor in ICU Visit type - Emergency Visit Emergency Visit: No - New Patient This patient is new to me today: No - Critical Care Critical Care patient: Yes Total Critical Care Time (in minutes): 40 Critical Care Statement: The care of this patient involved high complexity decision making to prevent further life threatening deterioration of the patient 's condition and/or to evaluate & treat vital organ system(s) failure or risk of failure.
--- NOTE | 2018-08-21 09:31 | PN ---
Teaching Attending Note Name of Resident: Ramesh Rm ATTENDING PHYSICIAN STATEMENT I saw and evaluated the patient. I reviewed the resident's note and discussed the case with the resident. I agree with the resident's findings and plan as documented. SUBJECTIVE: Patient seen and examined in the ICU. Awake and alert. Reports SOB is worse today. No CP. Used NIPPV overnight. OBJECTIVE: Intake & Output 08/18/18 08/19/18 08/20/18 08/21/18 23:59 23:59 23:59 23:59 Intake Total 4755 4354 1100 300 Output Total 3932 971 2862 1300 Balance 2955 3654 -1000 -1000 Weight 288 lb 12.889 oz 293 lb 292 lb Last Vital Signs Temp Pulse Resp BP Pulse Ox 97.3 F L 65 15 132/58 L 96 08/21/18 08:00 08/21/18 08:00 08/21/18 08:00 08/21/18 08:00 08/20/18 21:00 Active Medications Acetaminophen (Tylenol -) 650 mg PO Q4H PRN PRN Reason: FEVER Last Admin: 08/21/18 04:30 Dose: 650 mg Aspirin (Asa -) 81 mg PO DAILY [facility] Last Admin: 08/20/18 09:55 Dose: 81 mg Atorvastatin Calcium (Lipitor -) 80 mg PO HS [facility] Last Admin: 08/20/18 22:15 Dose: 80 mg Carvedilol (Coreg -) 25 mg PO BID [facility] Last Admin: 08/20/18 22:15 Dose: 25 mg Chlorhexidine Gluconate (Hibiclens For Decolonization -) 1 applic TP HS [facility] Last Admin: 08/20/18 22:16 Dose: 1 applic Clopidogrel Bisulfate (Plavix -) 75 mg PO DAILY [facility] Last Admin: 08/20/18 09:56 Dose: 75 mg Fluticasone Propionate (Flonase -) 1 spray NS BID [facility] Last Admin: 08/20/18 22:18 Dose: 1 spray Guaifenesin/Codeine Phosphate (Robitussin Ac -) 5 ml PO Q8H PRN PRN Reason: COUGH Last Admin: 08/21/18 05:40 Dose: 5 ml Heparin Sodium (Porcine) (Heparin -) 5,000 unit SQ TID [facility] Last Admin: 08/21/18 05:12 Dose: Not Given Meropenem 500 mg/ Dextrose 100 mls @ 200 mls/hr IVPB Q12H [facility] Last Admin: 08/21/18 05:46 Dose: 200 mls/hr Insulin Aspart (Novolog Vial Sliding Scale -) 1 vial SQ HS [facility]; Protocol Last Admin: 08/20/18 22:18 Dose: 8 unit Insulin Aspart (Novolog Vial Sliding Scale -) 1 vial SQ TIDAC [facility]; Protocol Last Admin: 08/21/18 06:47 Dose: 8 units Insulin Detemir (Levemir Vial) 12 units SQ HS [facility] Last Admin: 08/20/18 22:16 Dose: 12 unit Lactobacillus Acidophilus (Bacid -) 1 tab PO DAILY [facility] Last Admin: 08/20/18 09:55 Dose: 1 tab Mupirocin (Bactroban Ointment (For Decolonization) -) 1 applic NS BID [facility] Stop: 08/22/18 21:59 Last Admin: 08/20/18 22:15 Dose: 1 applic Mupirocin (Bactroban 2% Ointment -) 1 applic TP DAILY [facility] Last Admin: 08/20/18 09:56 Dose: 1 applic [id number]-[id number] Ethyl Esters (Lovaza -) 2 gm PO BID [facility] Last Admin: 08/20/18 22:15 Dose: 2 gm Ranitidine HCl (Zantac -) 150 mg PO BID [facility] Last Admin: 08/20/18 22:15 Dose: 150 mg Ranolazine (Ranexa -) 500 mg PO BID [facility] Last Admin: 08/20/18 22:15 Dose: 500 mg Sodium Chloride ([place] Nasal [place] -) 2 spray NS TID PRN PRN Reason: NASAL CONGESTION Last Admin: 08/20/18 12:02 Dose: 2 spray GENERAL: A&Ox3, Mildly tachypneic at rest HEAD: NC/AT EYES: PERRLA, EOMI EARS, NOSE, THROAT: MMM NECK: Normal range of motion, supple without lymphadenopathy, JVD, or masses. LUNGS: bibasilar rhonchi HEART: Paced rhythm, no m/r/g ABDOMEN: (+) BS, soft, NT, ND UPPER EXTREMITIES: 2+ pulses, warm, well-perfused. No cyanosis. No clubbing. Cap refill <2 seconds. No peripheral edema. LOWER EXTREMITIES: Erythema of left second toe, slightly progressive changes NEUROLOGICAL: Non-focal PSYCHIATRIC: Cooperative. Good eye contact. Appropriate mood and affect. Laboratory Results - last 24 hr 08/20/18 08/20/18 08/20/18 05:30 09:26 12:55 WBC 4.7 RBC 2.49 L Hgb 7.8 L Hct 22.1 L MCV 89.0 MCH 31.2 MCHC 35.1 RDW 15.7 Plt Count 150 MPV 7.4 L Absolute Neuts (auto) 3.5 Neutrophils % 74.7 Lymphocytes % 11.5 D Monocytes % 12.9 H Eosinophils % 0.6 Basophils % 0.3 Nucleated RBC % 0 PTT (Actin FS) Sodium 136 Potassium 4.5 Chloride 106 Carbon Dioxide 19 L Anion Gap 12 BUN 73 H Creatinine 4.3 H Creat Clearance w eGFR 14.36 POC Glucometer 240.29791 Random Glucose 227 H Calcium 7.9 L Phosphorus 5.1 H Magnesium 2.4 B-Natriuretic Peptide 78668.6 H 08/20/18 08/21/18 08/21/18 12:59 05:15 05:15 WBC 4.6 RBC 2.45 L Hgb 7.3 L Hct 22.2 L MCV 90.5 MCH 29.6 MCHC 32.7 RDW 15.6 Plt Count 137 MPV 7.5 Absolute Neuts (auto) 3.4 Neutrophils % 72.4 Lymphocytes % 13.2 Monocytes % 12.3 H Eosinophils % 1.7 D Basophils % 0.4 Nucleated RBC % 0 PTT (Actin FS) 31.3 Sodium Potassium Chloride Carbon Dioxide Anion Gap BUN Creatinine Creat Clearance w eGFR POC Glucometer 302.76512 Random Glucose Calcium Phosphorus Magnesium B-Natriuretic Peptide 08/21/18 05:15 WBC RBC Hgb Hct MCV MCH MCHC RDW Plt Count MPV Absolute Neuts (auto) Neutrophils % Lymphocytes % Monocytes % Eosinophils % Basophils % Nucleated RBC % PTT (Actin FS) Sodium 134 L Potassium 4.2 Chloride 103 Carbon Dioxide 22 Anion Gap 9 BUN 75 H Creatinine 4.3 H Creat Clearance w eGFR 14.36 POC Glucometer Random Glucose 296 H Calcium 7.8 L Phosphorus 5.3 H Magnesium 2.4 B-Natriuretic Peptide ASSESSMENT/PLAN: Sepsis due to Cellulitus / skin infection IDDM on insulin pump HTN HLD CAD S/P CABG S/P AICD CHF Aortic stenosis CKD NSTEMI Sleep Disordered Breathing D/W Cardiology: Will start Dobutamine and Lasix drip Close monitoring of Electrolytes ABX per ID O2 as needed Continue Coreg Monitor off Clonidine VTE prophylaxis ASA Plavix Glycemic control CPAP QHS and PRN ICU monitoring due to tenuous overall status Dr López Critical care time spent in reviewing chart, evaluating patient and formulating plan - 36 minutes
[2018-08-21] MEDS ORDERED: POTASSIUM CHLORIDE TABS 20 MEQ TABLET.ER (FP) PO ONE (09:32)
[2018-08-21] MEDS: LACTOBACILLUS ACIDOPHILUS 1 TABLET PO SCH (09:59)
[2018-08-21] MEDS: CARVEDILOL 25 MG TABLET (FP) PO SCH ×2 (09:59→21:27)
[2018-08-21] MEDS: ASPIRIN 81 MG CHEWABLE TABLETS PO SCH (09:59)
[2018-08-21] MEDS: OMEGA-3 ACID ETHYL ESTERS (FATTY-ACIDS) 1 GM CAPSULE (FP) PO SCH ×2 (10:00→21:28)
[2018-08-21] MEDS: CLOPIDOGREL BISULFATE 75 MG TABLET (FP) PO SCH (10:00)
[2018-08-21] MEDS: RANITIDINE HCL 150 MG TABLET (FP) PO SCH ×2 (10:00→21:28)
[2018-08-21] MEDS: RANOLAZINE E.R. 500 MG TABLET (FP) PO SCH ×2 (10:00→21:28)
[2018-08-21] MEDS: MUPIROCIN 2% TOPICAL OINTMENT 22 GM TUBE TP SCH (10:01)
[2018-08-21] MEDS: MUPIROCIN 2% TOPICAL OINTMENT FOR DECOLONIZATION NS SCH ×2 (10:02→21:29)
[2018-08-21] MEDS: FLUTICASONE PROP 0.05% 16 GM NASAL SPRAY NS SCH ×2 (10:09→21:50)
--- NOTE | 2018-08-21 10:26 | PN ---
Progress Note, Physician Chief Complaint: The patient seen in the ICU. Still feeling short of breath. Maintains fair amounts of urine output. No chest pains. 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 - Current Medication List Current Medications: Active Medications Acetaminophen (Tylenol -) 650 mg PO Q4H PRN PRN Reason: FEVER Last Admin: 08/21/18 04:30 Dose: 650 mg Aspirin (Asa -) 81 mg PO DAILY [facility] Last Admin: 08/21/18 09:59 Dose: 81 mg Atorvastatin Calcium (Lipitor -) 80 mg PO HS [facility] Last Admin: 08/20/18 22:15 Dose: 80 mg Carvedilol (Coreg -) 25 mg PO BID [facility] Last Admin: 08/21/18 09:59 Dose: 25 mg Chlorhexidine Gluconate (Hibiclens For Decolonization -) 1 applic TP HS [facility] Last Admin: 08/20/18 22:16 Dose: 1 applic Clopidogrel Bisulfate (Plavix -) 75 mg PO DAILY [facility] Last Admin: 08/21/18 10:00 Dose: 75 mg Fluticasone Propionate (Flonase -) 1 spray NS BID [facility] Last Admin: 08/21/18 10:09 Dose: Not Given Guaifenesin/Codeine Phosphate (Robitussin Ac -) 5 ml PO Q8H PRN PRN Reason: COUGH Last Admin: 08/21/18 05:40 Dose: 5 ml Heparin Sodium (Porcine) (Heparin -) 5,000 unit SQ TID [facility] Last Admin: 08/21/18 05:12 Dose: Not Given Meropenem 500 mg/ Dextrose 100 mls @ 200 mls/hr IVPB Q12H [facility] Last Admin: 08/21/18 05:46 Dose: 200 mls/hr Furosemide 100 mg/ Dextrose 100 mls @ 5 mls/hr IVPB TITR [facility]; Protocol Dobutamine HCl 250,000 mcg/ (Sodium Chloride) 250 mls @ 19.86 mls/hr IV TITR [facility]; Protocol Insulin Aspart (Novolog Vial Sliding Scale -) 1 vial SQ HS [facility]; Protocol Last Admin: 08/20/18 22:18 Dose: 8 unit Insulin Aspart (Novolog Vial Sliding Scale -) 1 vial SQ TIDAC [facility]; Protocol Last Admin: 08/21/18 06:47 Dose: 8 units Insulin Detemir (Levemir Vial) 12 units SQ HS [facility] Last Admin: 08/20/18 22:16 Dose: 12 unit Lactobacillus Acidophilus (Bacid -) 1 tab PO DAILY [facility] Last Admin: 08/21/18 09:59 Dose: 1 tab Mupirocin (Bactroban Ointment (For Decolonization) -) 1 applic NS BID [facility] Stop: 08/22/18 21:59 Last Admin: 08/21/18 10:02 Dose: 1 applic Mupirocin (Bactroban 2% Ointment -) 1 applic TP DAILY [facility] Last Admin: 08/21/18 10:01 Dose: 1 applic [id number]-4-Gctv Ethyl Esters (Lovaza -) 2 gm PO BID [facility] Last Admin: 08/21/18 10:00 Dose: 2 gm Ranitidine HCl (Zantac -) 150 mg PO BID [facility] Last Admin: 08/21/18 10:00 Dose: 150 mg Ranolazine (Ranexa -) 500 mg PO BID [facility] Last Admin: 08/21/18 10:00 Dose: 500 mg Sodium Chloride ([place] Nasal [place] -) 2 spray NS TID PRN PRN Reason: NASAL CONGESTION Last Admin: 08/20/18 12:02 Dose: 2 spray - Objective Vital Signs: Vital Signs Temperature 97.4 F L 08/21/18 10:00 Pulse Rate 67 08/21/18 10:00 Respiratory Rate 17 08/21/18 10:00 Blood Pressure 143/70 08/21/18 10:00 O2 Sat by Pulse Oximetry (%) 96 08/20/18 21:00 Constitutional: Yes: Well Nourished, Anxious Eyes: Yes: Conjunctiva Clear HENT: Yes: Normocephalic Neck: Yes: Trachea Midline Cardiovascular: Yes: Bradycardia, S1, S2 Respiratory: Yes: Regular, Diminished, Poor Air Entry, Rales Gastrointestinal: Yes: Soft, Abdomen, Obese Edema: Yes Edema: LLE: 1+, RLE: 1+ Neurological: Yes: Alert, Oriented Labs: CBC, BMP 08/21/18 05:15 08/21/18 05:15 INR, PTT INR 1.23 (0.83-1.09) H 08/18/18 08:05 Assessment/Plan 57 year old gentleman with hx of 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 HECTOR on CKD secondary to renal hypoprofuison in setting of sepsis , even though the patient is clinically fluid overloaded. Sepsis syndrome from soft tissue infection r/o bacteremia NSTEMI vs. Demand ischemia Acute on chronic anemia Hx of Hypertension Hypocalcemia...but corrected Calcium for the low Albumin is acce[ptable. Agree with Lasix infusion. No overt indication for dialysis at this point. If the renal functions worsen in the setting of persistent clinical symptoms, shall consider HD and UF. Elvia avendanotor the renal/ clinical status closely. Priscilla Guevara MD
[2018-08-21] MEDS: DOBUTAMINE HCL 250,000 MCG in SODIUM CHLORIDE 230 ML IV SCH (10:35)
[2018-08-21] MEDS: FUROSEMIDE INJECTION 100 MG in DEXTROSE 5%-WATER - 90 ML IVPB SCH (10:36)
[2018-08-21] MEDS ORDERED: guaiFENesin/CODEINE 5 ML UNIT-DOSE CUPS PO PRN ×2 (10:49→13:52)
--- NOTE | 2018-08-21 11:41 | PN ---
Progress Note, Physician History of Present Illness: Awake Supine in bed No c/o foot or leg pain Temps down No c/o chest pain/ dyspnea Slightly tachypneic on nasal cannula O2 WBC WNL vancomycin T 23.8 Cultures no growth - Current Medication List Current Medications: Active Medications Acetaminophen (Tylenol -) 650 mg PO Q4H PRN PRN Reason: FEVER Last Admin: 08/21/18 04:30 Dose: 650 mg Aspirin (Asa -) 81 mg PO DAILY [facility] Last Admin: 08/21/18 09:59 Dose: 81 mg Atorvastatin Calcium (Lipitor -) 80 mg PO HS [facility] Last Admin: 08/20/18 22:15 Dose: 80 mg Carvedilol (Coreg -) 25 mg PO BID [facility] Last Admin: 08/21/18 09:59 Dose: 25 mg Chlorhexidine Gluconate (Hibiclens For Decolonization -) 1 applic TP [facility] Last Admin: 08/20/18 22:16 Dose: 1 applic Clopidogrel Bisulfate (Plavix -) 75 mg PO DAILY [facility] Last Admin: 08/21/18 10:00 Dose: 75 mg Fluticasone Propionate (Flonase -) 1 spray NS BID [facility] Last Admin: 08/21/18 10:09 Dose: Not Given Guaifenesin/Codeine Phosphate (Robitussin Ac -) 5 ml PO Q6H PRN PRN Reason: COUGH Last Admin: 08/21/18 10:57 Dose: 5 ml Heparin Sodium (Porcine) (Heparin -) 5,000 unit SQ TID [facility] Last Admin: 08/21/18 05:12 Dose: Not Given Meropenem 500 mg/ Dextrose 100 mls @ 200 mls/hr IVPB Q12H [facility] Last Admin: 08/21/18 05:46 Dose: 200 mls/hr Furosemide 100 mg/ Dextrose 100 mls @ 5 mls/hr IVPB TITR [facility]; Protocol Last Admin: 08/21/18 10:36 Dose: 5 mg/hr, 5 mls/hr Dobutamine HCl 250,000 mcg/ (Sodium Chloride) 250 mls @ 19.86 mls/hr IV TITR [facility]; Protocol Last Admin: 08/21/18 10:35 Dose: 2.5 mcg/kg/min, 19.86 mls/hr Insulin Aspart (Novolog Vial Sliding Scale -) 1 vial SQ [facility]; Protocol Last Admin: 08/20/18 22:18 Dose: 8 unit Insulin Aspart (Novolog Vial Sliding Scale -) 1 vial SQ TIDAC [facility]; Protocol Last Admin: 08/21/18 11:09 Dose: 8 units Insulin Detemir (Levemir Vial) 12 units SQ HS [facility] Last Admin: 08/20/18 22:16 Dose: 12 unit Lactobacillus Acidophilus (Bacid -) 1 tab PO DAILY [facility] Last Admin: 08/21/18 09:59 Dose: 1 tab Mupirocin (Bactroban Ointment (For Decolonization) -) 1 applic NS BID [facility] Stop: 08/22/18 21:59 Last Admin: 08/21/18 10:02 Dose: 1 applic Mupirocin (Bactroban 2% Ointment -) 1 applic TP DAILY [facility] Last Admin: 08/21/18 10:01 Dose: 1 applic Eezgw-6-[id number] Ethyl Esters (Lovaza -) 2 gm PO BID [facility] Last Admin: 08/21/18 10:00 Dose: 2 gm Ranitidine HCl (Zantac -) 150 mg PO BID [facility] Last Admin: 08/21/18 10:00 Dose: 150 mg Ranolazine (Ranexa -) 500 mg PO BID [facility] Last Admin: 08/21/18 10:00 Dose: 500 mg Sodium Chloride ([place] Nasal [place] -) 2 spray NS TID PRN PRN Reason: NASAL CONGESTION Last Admin: 08/20/18 12:02 Dose: 2 spray - Objective Vital Signs: Vital Signs Temperature 97.4 F L 08/21/18 10:00 Pulse Rate 65 08/21/18 10:35 Respiratory Rate 17 08/21/18 10:00 Blood Pressure 143/70 08/21/18 10:35 O2 Sat by Pulse Oximetry (%) 96 08/20/18 21:00 Constitutional: Yes: No Distress Eyes: Yes: Conjunctiva Clear Cardiovascular: Yes: Regular Rate and Rhythm, S1, S2 Respiratory: Yes: Diminished Gastrointestinal: Yes: Normal Bowel Sounds, Soft, Abdomen, Obese. No: Tenderness Extremities: Yes: Other (decreased swelling and erythema 2nd toe) Labs: CBC, BMP 08/21/18 05:15 08/21/18 05:15 INR, PTT INR 1.23 (0.83-1.09) H 01/02/19 08:05 Assessment/Plan Sepsis Cellulitis L 2nd toe/ distal L LE improved Renal failure Diabetes mellitus Redose vancomycin Check trough am Continue meropenem
[2018-08-21] MEDS ORDERED: VANCOMYCIN 1,250 MG in DEXTROSE 5%-WATER - 250 ML IVPB ONE (11:46)
[2018-08-21] MEDS ORDERED: guaiFENesin/CODEINE 5 ML UNIT-DOSE CUPS PO ONE (13:55)
--- NOTE | 2018-08-21 14:49 | PN ---
Progress Note (short form) - Note Progress Note: C/O SOB Blood sugar 200s with increased food intake Vital Signs Period Temp Pulse Resp BP Sys/Gallo Pulse Ox Last 24 Hr 97.3 F-98.8 F 57-81 15-24 114-161/43-71 96 PE: AOx3 Neck: Supple, HEENT: EOMI Lungs: cTA CVS: S1S2 Abd: Benign EXt: decreased erythema left 2nd toe Neuro: No focal deficit CMP Sodium 134 mmol/L (136-145) L 08/21/18 05:15 Potassium 4.2 mmol/L (3.5-5.1) 08/21/18 05:15 Chloride 103 mmol/L (98-107) 08/21/18 05:15 Carbon Dioxide 22 mmol/L (21-32) 08/21/18 05:15 Anion Gap 9 MMOL/L (8-16) 08/21/18 05:15 BUN 75 mg/dL (7-18) H 08/21/18 05:15 Creatinine 4.3 mg/dL (0.55-1.3) H 08/21/18 05:15 Creat Clearance w eGFR 14.36 (>60) 08/21/18 05:15 POC Glucometer 302.55366 UNITS (80-120) 08/20/18 12:59 Random Glucose 296 mg/dL (74-106) H 08/21/18 05:15 Hemoglobin A1c % 6.0 % (4.2-6.3) 08/19/18 05:15 Lactic Acid 1.1 mmol/L (0.4-2.0) 08/17/18 20:20 Calcium 7.8 mg/dL (8.5-10.1) L 08/21/18 05:15 Phosphorus 5.3 mg/dL (2.5-4.9) H 08/21/18 05:15 Magnesium 2.4 mg/dL (1.8-2.4) 08/21/18 05:15 Total Bilirubin 0.8 mg/dL (0.2-1) 08/19/18 05:15 AST 83 U/L (15-37) H 08/19/18 05:15 ALT 41 U/L (13-61) 08/19/18 05:15 Alkaline Phosphatase 77 U/L (45-117) 08/19/18 05:15 Creatine Kinase 402 IU/L (26-308) H 08/19/18 05:15 Creatine Kinase Index 2.8 % (0.0-5.0) 08/19/18 05:15 CK-MB (CK-2) 11.6 ng/mL (0.5-3.6) H 08/19/18 05:15 Troponin I 19.10 ng/ml (0.00-0.05) H* 08/19/18 05:15 B-Natriuretic Peptide 03640.6 pg/ml (5-125) H 08/20/18 05:30 Total Protein 6.7 g/dl (6.4-8.2) 08/19/18 05:15 Albumin 2.5 g/dl (3.4-5.0) L 08/19/18 05:15 Current Medications Generic Name Dose Route Start Last Admin Trade Name Freq PRN Reason Stop Dose Admin Acetaminophen 650 mg 08/17/18 18:08 08/21/18 04:30 Tylenol - PO 650 mg Q4H PRN Administration FEVER Aspirin 81 mg 08/18/18 10:00 08/21/18 09:59 Asa - PO 81 mg DAILY [facility] Administration Atorvastatin Calcium 80 mg 08/17/18 22:00 08/20/18 22:15 Lipitor - PO 80 mg HS [facility] Administration Carvedilol 25 mg 08/18/18 22:00 08/21/18 09:59 Coreg - PO 25 mg BID [facility] Administration Chlorhexidine Gluconate 1 applic 08/17/18 22:00 08/20/18 22:16 Hibiclens For Decolonization - TP 1 applic HS [facility] Administration Clopidogrel Bisulfate 75 mg 08/18/18 10:00 08/21/18 10:00 Plavix - PO 75 mg DAILY [facility] Administration Fluticasone Propionate 1 spray 08/20/18 11:15 08/21/18 10:09 Flonase - NS Not Given BID [facility] Guaifenesin/Codeine Phosphate 10 ml 08/21/18 13:52 Robitussin Ac - PO Q6H PRN COUGH Heparin Sodium (Porcine) 5,000 unit 08/19/18 14:00 08/21/18 13:11 Heparin - SQ 5,000 unit TID [facility] Administration Meropenem 500 mg/ Dextrose 100 mls @ 200 mls/hr 08/17/18 18:45 08/21/18 05:46 IVPB 200 mls/hr Q12H [facility] Administration Furosemide 100 mg/ Dextrose 100 mls @ 5 mls/hr 08/21/18 09:45 08/21/18 10:36 IVPB 5 mg/hr TITR [facility] 5 mls/hr Administration Protocol 5 MG/HR Dobutamine HCl 250,000 mcg/ 250 mls @ 19.86 mls/hr 08/21/18 09:45 08/21/18 10 :35 Sodium Chloride IV 2.5 mcg/kg/min TITR [facility] 19.86 mls/hr Administration Protocol 2.5 MCG/KG/MIN Insulin Aspart 1 vial 08/20/18 22:00 08/20/18 22:18 Novolog Vial Sliding Scale - SQ 8 unit HS [facility] Administration Protocol Insulin Aspart 1 vial 08/20/18 12:45 08/21/18 11:09 Novolog Vial Sliding Scale - SQ 8 units TIDAC [facility] Administration Protocol Insulin Detemir 12 units 08/20/18 22:00 08/20/18 22:16 Levemir Vial SQ 12 unit HS [facility] Administration Lactobacillus Acidophilus 1 tab 08/19/18 10:00 08/21/18 09:59 Bacid - PO 1 tab DAILY [facility] Administration Mupirocin 1 applic 08/17/18 22:00 08/21/18 10:02 Bactroban Ointment (For Decolonization) - NS 08/22/18 21:59 1 applic BID [facility] Administration Mupirocin 1 applic 08/20/18 10:00 08/21/18 10:01 Bactroban 2% Ointment - TP 1 applic DAILY [facility] Administration Kgaro-5-Owqa Ethyl Esters 2 gm 08/17/18 22:00 08/21/18 10:00 Lovaza - PO 2 gm BID [facility] Administration Ranitidine HCl 150 mg 08/17/18 22:00 08/21/18 10:00 Zantac - PO 150 mg BID [facility] Administration Ranolazine 500 mg 08/17/18 22:00 08/21/18 10:00 Ranexa - PO 500 mg BID [facility] Administration Sodium Chloride 2 spray 08/20/18 11:06 08/20/18 12:02 Maish Vaya [place] Nasal [place] - NS 2 spray TID PRN Administration NASAL CONGESTION AP: Left 2nd toe cellulitis: improving Sepsis T2DM On Insulin pump at home CKD HLD CAD/Elevated Troponins: Probably secondary to demand ischemia BGM Q ACHS and 3 AM Increase Levemir 20 units daily Increase Novolog SS coverage Hold Insulin pump and long acting Insulin for now as food intake is inadequate. IV abx Bone scan or MRI to R/O Osteo Will f/u
[2018-08-21] MEDS ORDERED: PT OWN MED DRAWER 7, Y5N ONE (16:31)
--- NOTE | 2018-08-21 18:21 | PN ---
Physical Exam: SUBJECTIVE: Patient seen and examined, still dyspnea, no chest pain. left toe pain. No abdominal or urinary symptoms. OBJECTIVE: Vital Signs Period Temp Pulse Resp BP Sys/Gallo Pulse Ox Last 24 Hr 97.3 F-98.8 F 57-81 15- 132-161/43-71 96 GENERAL: The patient is awake, alert, tachypnea improved, weak looking HEAD: Normal with no signs of trauma. EYES: PERRL, extraocular movements intact, sclera anicteric, conjunctiva clear. No ptosis. NECK: Body habitus limiting JVD visualizatonTrachea midline, full range of motion, supple. LUNGS: Bibasilar rales, positive air entry, no wheezing, some use of accessory muscles of respiration HEART: Regular rate and rhythm, S1, S2 without murmur, rub or gallop. ABDOMEN: Soft, obese, nontender, nondistended, normoactive bowel sounds, no guarding, no rebound, EXTREMITIES: left second erythema with swelling overall unchanged, surrounding left foot edema improved PSYCH: Normal mood, normal affect. Laboratory Results - last 24 hr 08/21/18 08/21/18 08/21/18 05:15 05:15 05:15 WBC 4.6 RBC 2.45 L Hgb 7.3 L Hct 22.2 L MCV 90.5 MCH 29.6 MCHC 32.7 RDW 15.6 Plt Count 137 MPV 7.5 Absolute Neuts (auto) 3.4 Neutrophils % 72.4 Lymphocytes % 13.2 Monocytes % 12.3 H Eosinophils % 1.7 D Basophils % 0.4 Nucleated RBC % 0 PTT (Actin FS) 31.3 Sodium 134 L Potassium 4.2 Chloride 103 Carbon Dioxide 22 Anion Gap 9 BUN 75 H Creatinine 4.3 H Creat Clearance w eGFR 14.36 Random Glucose 296 H Calcium 7.8 L Phosphorus 5.3 H Magnesium 2.4 Blood Type Antibody Screen Crossmatch 08/21/18 14:46 WBC RBC Hgb Hct MCV MCH MCHC RDW Plt Count MPV Absolute Neuts (auto) Neutrophils % Lymphocytes % Monocytes % Eosinophils % Basophils % Nucleated RBC % PTT (Actin FS) Sodium Potassium Chloride Carbon Dioxide Anion Gap BUN Creatinine Creat Clearance w eGFR Random Glucose Calcium Phosphorus Magnesium Blood Type A POSITIVE Antibody Screen Negative Crossmatch See Detail Active Medications Generic Name Dose Route Start Last Admin Trade Name Freq PRN Reason Stop Dose Admin Acetaminophen 650 mg 08/17/18 18:08 08/21/18 04:30 Tylenol - PO 650 mg Q4H PRN Administration FEVER Aspirin 81 mg 08/18/18 10:00 08/21/18 09:59 Asa - PO 81 mg DAILY [facility] Administration Atorvastatin Calcium 80 mg 08/17/18 22:00 08/20/18 22:15 Lipitor - PO 80 mg HS [facility] Administration Carvedilol 25 mg 08/18/18 22:00 08/21/18 09:59 Coreg - PO 25 mg BID [facility] Administration Chlorhexidine Gluconate 1 applic 08/17/18 22:00 08/20/18 22:16 Hibiclens For Decolonization - TP 1 applic HS [facility] Administration Clopidogrel Bisulfate 75 mg 08/18/18 10:00 08/21/18 10:00 Plavix - PO 75 mg DAILY [facility] Administration Fluticasone Propionate 1 spray 08/20/18 11:15 08/21/18 10:09 Flonase - NS Not Given BID [facility] Guaifenesin/Codeine Phosphate 10 ml 08/21/18 13:52 08/21/18 17:35 Robitussin Ac - PO 10 ml Q6H PRN Administration COUGH Heparin Sodium (Porcine) 5,000 unit 08/19/18 14:00 08/21/18 13:11 Heparin - SQ 5,000 unit TID [facility] Administration Meropenem 500 mg/ Dextrose 100 mls @ 200 mls/hr 08/17/18 18:45 08/21/18 05:46 IVPB 200 mls/hr Q12H [facility] Administration Furosemide 100 mg/ Dextrose 100 mls @ 5 mls/hr 08/21/18 09:45 08/21/18 10:36 IVPB 5 mg/hr TITR [facility] 5 mls/hr Administration Protocol 5 MG/HR Dobutamine HCl 250,000 mcg/ 250 mls @ 19.86 mls/hr 08/21/18 09:45 08/21/18 10 :35 Sodium Chloride IV 2.5 mcg/kg/min TITR [facility] 19.86 mls/hr Administration Protocol 2.5 MCG/KG/MIN Insulin Aspart 1 vial 08/20/18 22:00 08/20/18 22:18 Novolog Vial Sliding Scale - SQ 8 unit HS [facility] Administration Protocol Insulin Aspart 1 vial 08/21/18 16:30 08/21/18 16:45 Novolog Vial Sliding Scale - SQ 12 units TIDAC [facility] Administration Protocol Insulin Detemir 20 units 08/21/18 22:00 Levemir Vial SQ HS [facility] Lactobacillus Acidophilus 1 tab 08/19/18 10:00 08/21/18 09:59 Bacid - PO 1 tab DAILY [facility] Administration Mupirocin 1 applic 08/17/18 22:00 08/21/18 10:02 Bactroban Ointment (For Decolonization) - NS 08/22/18 21:59 1 applic BID [facility] Administration Mupirocin 1 applic 08/20/18 10:00 08/21/18 10:01 Bactroban 2% Ointment - TP 1 applic DAILY [facility] Administration Pjyxi-6-Suye Ethyl Esters 2 gm 08/17/18 22:00 08/21/18 10:00 Lovaza - PO 2 gm BID [facility] Administration Ranitidine HCl 150 mg 08/17/18 22:00 08/21/18 10:00 Zantac - PO 150 mg BID [facility] Administration Ranolazine 500 mg 08/17/18 22:00 08/21/18 10:00 Ranexa - PO 500 mg BID [facility] Administration Sodium Chloride 2 spray 08/20/18 11:06 08/20/18 12:02 [place] Nasal [place] - NS 2 spray TID PRN Administration NASAL CONGESTION Microbiology 08/17/18 14:10 Blood - Peripheral Venous Blood Culture - Preliminary NO GROWTH OBTAINED AFTER 96 HOURS, INCUBATION TO CONTINUE FOR 1 DAYS. 08/17/18 14:25 Blood - Peripheral Venous Blood Culture - Preliminary NO GROWTH OBTAINED AFTER 96 HOURS, INCUBATION TO CONTINUE FOR 1 DAYS. 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, abnormal stress test in 06/2017, Left ureteral stone with hydronenphrosis s/p recent stenting, comes with sepsis after left toenail removal and noted with elevated troponin -Septic shock, suspect from left toe infection, cellulitis, r/o osteomyelitis -Elevated troponin, NSTEMI vs Demand type II in the setting of above -Acute systolic heart failure exacerbation in the setting fluid resuscitation and CO -Acute hypoxemic respiratory failure -NSVT/PVCs/Ventricular trigeminy -Thrombocytopenia, likely from sepsis -CAD s/p CABG, ICD -HTN -HLD -IDDM on insulin pump -CKD stage IV -Epistaxis Plan: Still dyspneic/hypoxic. Bipap overnight. Started on lasix/dobutamine drip. Cardiology/nephrology input appreciated. Strict I/Os and daily weights. ID input noted/Meropenem/vancomycin day 4, renal dosing. For bone scan as hemodynamics permit. Follow up cultures. Podiatry input noted, further imaging and surgical plan when hemodynamics improve. Cardiology input noted. Heparin drip, 2D echo noted. Needs cardiac risk stratification when improved, however, renal function limiting factor. Off insulin pump for now. ISS, diabetic diet. Standing insulin based on blood sugars. Endocrine input noted. ASA/plavix/ranexa/statin/clonidine. less PVC/VT after coreg resumption. Plan discussed with patient, all questions answered. Care co-ordinated with ICU Total critical care time spent 37 min. Visit type - Emergency Visit Emergency Visit: Yes ED Registration Date: 08/17/18 Care time: The patient presented to the Emergency Department on the above date and was hospitalized for further evaluation of their emergent condition. - New Patient This patient is new to me today: No - Critical Care Critical Care patient: Yes Total Critical Care Time (in minutes): 37 Critical Care Statement: The care of this patient involved high complexity decision making to prevent further life threatening deterioration of the patient 's condition and/or to evaluate & treat vital organ system(s) failure or risk of failure.
[2018-08-21] MEDS: ATORVASTATIN CA 80 MG TABLET (FP) PO SCH (21:28)
[2018-08-21] MEDS: SODIUM CHLORIDE NASAL SPRAY 44 ML BOTTLE NS PRN (21:50)
[2018-08-21] MEDS ORDERED: INSULIN (LEVEMIR) 100 UNITS/ML UNITS SQ SCH (22:00)
[2018-08-21 22:07] LABS: BASO % 0.3 % (0-2.0); EOS % 2.7 % (0-4.5); HEMATOCRIT 23.9 % (35.4-49); HEMOGLOBIN 8.7 GM/dL (11.7-16.9); LYMPH % 8.6 % (8-40); MCH 31.3 pg (25.7-33.7); MCHC 36.2 g/dl (32.0-35.9); MEAN CELL VOLUME 86.3 fl (80-96); MEAN PLT VOLUME 7.2 fl (7.5-11.1); MONO % 8.9 % (3.8-10.2); NEUT % 79.5 % (42.8-82.8); PLATELET COUNT 199 K/MM3 (134-434); RBC 2.77 M/mm3 (4.00-5.60); RDW 16.4 % (11.9-15.9)
[2018-08-21] MEDS: CHLORHEXIDINE GLUCONATE 4% CLEANSER FOR DECOLONIZATION TP SCH (22:19)
[2018-08-21 22:25] LABS: ANION GAP 9 MMOL/L (8-16); BLOOD UREA NITROGEN 82 mg/dL (7-18); CALCIUM 8.1 mg/dL (8.5-10.1); CHLORIDE 104 mmol/L (98-107); CO2 23 mmol/L (21-32); CREATININE 4.3 mg/dL (0.55-1.3); GLUCOSE,RANDOM 276 mg/dL (74-106); POTASSIUM 4.6 mmol/L (3.5-5.1); SODIUM 135 mmol/L (136-145)
[2018-08-21] MEDS: guaiFENesin/CODEINE 10 ML UNIT-DOSE CUPS PO PRN (23:29)
[2018-08-22 06:03] LABS: BASO % 0.5 % (0-2.0); EOS % 4.1 % (0-4.5); HEMATOCRIT 24.5 % (35.4-49); HEMOGLOBIN 8.2 GM/dL (11.7-16.9); LYMPH % 11.2 % (8-40); MCH 29.3 pg (25.7-33.7); MCHC 33.3 g/dl (32.0-35.9); MEAN PLT VOLUME 7.6 fl (7.5-11.1); MONO % 9.6 % (3.8-10.2); NEUT % 74.6 % (42.8-82.8); PLATELET COUNT 171 K/MM3 (134-434); RBC 2.78 M/mm3 (4.00-5.60); RDW 17.5 % (11.9-15.9); WHITE BLOOD COUNT 5.3 K/mm3 (4.0-10.0)
[2018-08-22] MEDS ORDERED: PT OWN MED DRAWER 7, Y5N ONE ×4 (06:21→23:14)
[2018-08-22] MEDS: HEPARIN NA (PORCINE) 5,000 UNITS/ML 1ML VIAL SQ SCH ×3 (06:22→21:01)
[2018-08-22] MEDS: MEROPENEM 500 MG in DEXTROSE 5%-WATER 100 ML IVPB SCH (06:23)
[2018-08-22 06:27] LABS: ANION GAP 10 MMOL/L (8-16); BLOOD UREA NITROGEN 81 mg/dL (7-18); CALCIUM 7.9 mg/dL (8.5-10.1); CHLORIDE 101 mmol/L (98-107); CO2 23 mmol/L (21-32); CREATININE 4.4 mg/dL (0.55-1.3); POTASSIUM 4.5 mmol/L (3.5-5.1); SODIUM 133 mmol/L (136-145)
[2018-08-22 06:30] LABS: GLUCOSE,RANDOM 362 mg/dL (74-106)
[2018-08-22] MEDS: INSULIN SLIDING SCALE (NOVOLOG) 1 VIAL SQ SCH ×4 (06:37→21:58)
--- NOTE | 2018-08-22 07:34 | PN ---
Progress Note (short form) - Note Progress Note: Chief Complaint: Events noted, notes reviewed, continues to report persistent exertional and rest dyspnea, denies chest pain, complaining of persistent left leg discomfort History of Present Illness: Seen and examined and examined in the ICU. Events noted, notes reviewed, continues to report persistent exertional and rest dyspnea, denies chest pain, complaining of persistent left leg discomfort Dobutamine infusion D/C by the resident staff related to hypertension, I was not contacted ?? Given 1 unit PRBC Echocardiography report noted, sub-optimal study unlikely patient has normal LV systolic function considering his prior history - Current Medication List Current Medications Acetaminophen (Tylenol -) 650 mg PO Q4H PRN PRN Reason: FEVER Last Admin: 08/21/18 21:29 Dose: 650 mg Aspirin (Asa -) 81 mg PO DAILY [facility] Last Admin: 08/21/18 09:59 Dose: 81 mg Atorvastatin Calcium (Lipitor -) 80 mg PO HS [facility] Last Admin: 08/21/18 21:28 Dose: 80 mg Carvedilol (Coreg -) 25 mg PO BID [facility] Last Admin: 08/21/18 21:27 Dose: 25 mg Chlorhexidine Gluconate (Hibiclens For Decolonization -) 1 applic TP HS [facility] Last Admin: 08/21/18 22:19 Dose: 1 applic Clopidogrel Bisulfate (Plavix -) 75 mg PO DAILY [facility] Last Admin: 08/21/18 10:00 Dose: 75 mg Fluticasone Propionate (Flonase -) 1 spray NS BID [facility] Last Admin: 08/21/18 21:50 Dose: 1 spray Guaifenesin/Codeine Phosphate (Robitussin Ac -) 10 ml PO Q6H PRN PRN Reason: COUGH Last Admin: 08/21/18 23:29 Dose: 10 ml Heparin Sodium (Porcine) (Heparin -) 5,000 unit SQ TID [facility] Last Admin: 08/22/18 06:22 Dose: 5,000 unit Meropenem 500 mg/ Dextrose 100 mls @ 200 mls/hr IVPB Q12H [facility] Last Admin: 08/22/18 06:23 Dose: 200 mls/hr Furosemide 100 mg/ Dextrose 100 mls @ 5 mls/hr IVPB TITR [facility]; Protocol Last Titration: 08/21/18 19:29 Dose: 10 mg/hr, 10 mls/hr Dobutamine HCl 250,000 mcg/ (Sodium Chloride) 250 mls @ 19.86 mls/hr IV TITR [facility]; Protocol Last Titration: 08/22/18 01:26 Dose: 0 mcg/kg/min, 0 mls/hr Insulin Aspart (Novolog Vial Sliding Scale -) 1 vial SQ HS [facility]; Protocol Last Admin: 08/21/18 21:49 Dose: 4 unit Insulin Aspart (Novolog Vial Sliding Scale -) 1 vial SQ TIDAC [facility]; Protocol Last Admin: 08/22/18 06:37 Dose: 14 units Insulin Detemir (Levemir Vial) 20 units SQ HS [facility] Last Admin: 08/21/18 21:36 Dose: 20 units Lactobacillus Acidophilus (Bacid -) 1 tab PO DAILY [facility] Last Admin: 08/21/18 09:59 Dose: 1 tab Mupirocin (Bactroban Ointment (For Decolonization) -) 1 applic NS BID [facility] Stop: 08/22/18 21:59 Last Admin: 08/21/18 21:29 Dose: 1 applic Mupirocin (Bactroban 2% Ointment -) 1 applic TP DAILY [facility] Last Admin: 08/21/18 10:01 Dose: 1 applic Yvysh-0-Rrtw Ethyl Esters (Lovaza -) 2 gm PO BID [facility] Last Admin: 08/21/18 21:28 Dose: 2 gm Ranitidine HCl (Zantac -) 150 mg PO BID [facility] Last Admin: 08/21/18 21:28 Dose: 150 mg Ranolazine (Ranexa -) 500 mg PO BID [facility] Last Admin: 08/21/18 21:28 Dose: 500 mg Sodium Chloride ([place] Nasal [place] -) 2 spray NS TID PRN PRN Reason: NASAL CONGESTION Last Admin: 08/21/18 21:50 Dose: 2 spray Review of Systems Constitutional: denies: Chills, Fever Cardiovascular: As Noted Above Respiratory: denies: Cough or Sputum Production Gastrointestinal: denies: Nausea, Vomiting, Constipation or Abdominal Pain Genitourinary: denies: Dysuria Musculoskeletal: No Symptoms Reported Neurological: denies: Dizziness, Headache - Objective Vital Signs: Last Vital Signs Temp Pulse Resp BP Pulse Ox 98.1 F 67 13 145/64 100 08/22/18 06:00 08/22/18 06:00 08/22/18 06:00 08/22/18 06:00 08/22/18 04:03 Intake & Output 08/19/18 08/20/18 08/21/18 08/22/18 23:59 23:59 23:59 23:59 Intake Total 4354 1100 2060.7 460 Output Total 700 2100 5550 1200 Balance 3654 -1000 -3489.3 -740 Weight 293 lb 292 lb 286 lb 6.4 oz Neck: Supple Negative JVD Cardiovascular: S1 S2 Regular Rate and Rhythm Grade 2-3/6 LOAN Respiratory: Diminished Breath Sounds Bilaterally Gastrointestinal: Soft Benign Normal Bowel Sounds Ext: Bilateral Edema Labs: CBC, BMP 08/22/18 05:15 08/22/18 05:15 Assessment/Plan ASSESSMENT: 1. Acute on chronic class II-III NYHA classification LV failure related to LV systolic dysfunction, improving/resolving 2. CAD post [place]/CABG, PCI/stent, demand ischemic injury history of an abnormal MPI study angina pectoris, plan for conservative medical management 3. Aortic stenosis, mild 4. HTN 5. IDDM 6. Hypercholesterolemia 7. Post prophylactic ICD implant, history of NSVT 8. CKD with acute exacerbation 9. Anemia post transfusion 10. Gout 11. Obstructive sleep apnea 12. Persistent left leg discomfort, etiology remains unclear PLAN: 1. Continue Lasix drip with close monitoring renal function and electrolytes 2. Resume Dobutamine this AM to assist with diuresis 3. Continue Coreg with caution (aware of Dobutamine infusion) 4. Recommend Entresto resumption once renal function at baseline with close monitoring renal function and electrolytes 5. Continue Ranexa 6. Add Norvasc 7. Defer Clonidine re-initiation 8. Continue Lipitor 9. Continue Plavix and ASA with caution in view of the above noted anemia, transfuse as needed to maintain Hg equal or > 8.0 10. Antibiotics as per the primary team 11. As outlined in the prior note plan to pursue medical management and therapy optimization and deferring any invasive strategy in view of the above noted CKD with acute exacerbation Residents were instructed to contact attending of record to discuss case prior to implementing any major medical therapeutic changes Bridgett Mullen M.D.
--- NOTE | 2018-08-22 08:34 | PN ---
Progress Note, Physician Chief Complaint: The patient seen in the ICU. Still with a cough. Feeling short of breath. Maintains good amounts of urine output. No chest pains. 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 The patient's clinical condition has not improved since admission. IV Lasix and IV Dobutamine infusing. - Current Medication List Current Medications: Active Medications Acetaminophen (Tylenol -) 650 mg PO Q4H PRN PRN Reason: FEVER Last Admin: 08/21/18 21:29 Dose: 650 mg Amlodipine Besylate (Norvasc -) 5 mg PO DAILY [facility] Aspirin (Asa -) 81 mg PO DAILY [facility] Last Admin: 08/21/18 09:59 Dose: 81 mg Atorvastatin Calcium (Lipitor -) 80 mg PO HS [facility] Last Admin: 08/21/18 21:28 Dose: 80 mg Carvedilol (Coreg -) 25 mg PO BID [facility] Last Admin: 08/21/18 21:27 Dose: 25 mg Chlorhexidine Gluconate (Hibiclens For Decolonization -) 1 applic TP HS [facility] Last Admin: 08/21/18 22:19 Dose: 1 applic Clopidogrel Bisulfate (Plavix -) 75 mg PO DAILY [facility] Last Admin: 08/21/18 10:00 Dose: 75 mg Fluticasone Propionate (Flonase -) 1 spray NS BID [facility] Last Admin: 08/21/18 21:50 Dose: 1 spray Guaifenesin/Codeine Phosphate (Robitussin Ac -) 10 ml PO Q6H PRN PRN Reason: COUGH Last Admin: 08/21/18 23:29 Dose: 10 ml Heparin Sodium (Porcine) (Heparin -) 5,000 unit SQ TID [facility] Last Admin: 08/22/18 06:22 Dose: 5,000 unit Meropenem 500 mg/ Dextrose 100 mls @ 200 mls/hr IVPB Q12H [facility] Last Admin: 08/22/18 06:23 Dose: 200 mls/hr Furosemide 100 mg/ Dextrose 100 mls @ 5 mls/hr IVPB TITR [facility]; Protocol Last Titration: 08/21/18 19:29 Dose: 10 mg/hr, 10 mls/hr Dobutamine HCl 250,000 mcg/ (Sodium Chloride) 250 mls @ 19.86 mls/hr IV TITR [facility]; Protocol Last Titration: 08/22/18 01:26 Dose: 0 mcg/kg/min, 0 mls/hr Insulin Aspart (Novolog Vial Sliding Scale -) 1 vial SQ HS [facility]; Protocol Last Admin: 08/21/18 21:49 Dose: 4 unit Insulin Aspart (Novolog Vial Sliding Scale -) 1 vial SQ TIDAC [facility]; Protocol Last Admin: 08/22/18 06:37 Dose: 14 units Insulin Detemir (Levemir Vial) 20 units SQ HS [facility] Last Admin: 08/21/18 21:36 Dose: 20 units Lactobacillus Acidophilus (Bacid -) 1 tab PO DAILY [facility] Last Admin: 08/21/18 09:59 Dose: 1 tab Mupirocin (Bactroban Ointment (For Decolonization) -) 1 applic NS BID [facility] Stop: 08/22/18 21:59 Last Admin: 08/21/18 21:29 Dose: 1 applic Mupirocin (Bactroban 2% Ointment -) 1 applic TP DAILY [facility] Last Admin: 08/21/18 10:01 Dose: 1 applic Jbcpj-7-Sgnb Ethyl Esters (Lovaza -) 2 gm PO BID [facility] Last Admin: 08/21/18 21:28 Dose: 2 gm Ranitidine HCl (Zantac -) 150 mg PO BID [facility] Last Admin: 08/21/18 21:28 Dose: 150 mg Ranolazine (Ranexa -) 500 mg PO BID [facility] Last Admin: 08/21/18 21:28 Dose: 500 mg Sodium Chloride ([place] Nasal [place] -) 2 spray NS TID PRN PRN Reason: NASAL CONGESTION Last Admin: 08/21/18 21:50 Dose: 2 spray - Objective Vital Signs: Vital Signs Temperature 98.1 F 08/22/18 06:00 Pulse Rate 67 08/22/18 07:43 Respiratory Rate 20 08/22/18 07:43 Blood Pressure 140/65 08/22/18 07:43 O2 Sat by Pulse Oximetry (%) 100 08/22/18 04:03 Constitutional: Yes: Well Nourished, Anxious, Mild Distress, Other (cough) HENT: Yes: Normocephalic Cardiovascular: Yes: Regular Rate and Rhythm, Tachycardia, S1, S2 Respiratory: Yes: Diminished, Poor Air Entry, Rales, SOB Gastrointestinal: Yes: Soft, Abdomen, Obese Genitourinary: Yes: Diaz Present. No: CVA Tenderness - Left, CVA Tenderness - Right Musculoskeletal: Yes: Joint Stiffness Edema: Yes Edema: LLE: 1+, RLE: 1+ Neurological: Yes: Alert, Oriented Labs: CBC, BMP 08/22/18 05:15 08/22/18 05:15 INR, PTT INR 1.23 (0.83-1.09) H 08/18/18 08:05 Assessment/Plan 57 year old gentleman with hx of CKD stage 4 secondary to Diabetic nephropathy ( baseline Cr ~3.8), CAD, Hypertension, DM who presented with left food wound with chills and found to have fever with soft tissue infection with elevated cardiac enzymes and HECTOR. HECTOR on CKD secondary to renal hypoprofuison in setting of sepsis. The patient is clinically fluid overloaded. Sepsis syndrome from soft tissue infection of the LE. On IV Abx. Acute on chronic anemia Hx of Hypertension Hypocalcemia...but corrected Calcium for the low Albumin is acce[ptable. Hyperglycemia... Should consider tighter glycemic control. Agree with Lasix infusion. Can increase to 10 mg/ hr. No overt indication for dialysis at this point. If the renal functions worsen in the setting of persistent clinical symptoms, CHF, SOB, then shall consider HD and UF. Will moniotor the renal/ clinical status closely. Priscilla Guevara MD
--- NOTE | 2018-08-22 09:49 | PN ---
Teaching Attending Note Name of Resident: Torin Villalpando ATTENDING PHYSICIAN STATEMENT I saw and evaluated the patient. I reviewed the resident's note and discussed the case with the resident. I agree with the resident's findings and plan as documented. SUBJECTIVE: Patient seen and examined in the ICU. Awake and alert. Breathing is better today after being started on Dobutamine and Lasix drip. No CP. Used NIPPV overnight. CXR: Some improvement in CHF pattern OBJECTIVE: Intake & Output 08/19/18 08/20/18 08/21/18 08/22/18 23:59 23:59 23:59 23:59 Intake Total 4354 1100 2060.7 460 Output Total 700 2100 5550 1200 Balance 3654 -1000 -3489.3 -740 Weight 293 lb 292 lb 286 lb 6.4 oz Last Vital Signs Temp Pulse Resp BP Pulse Ox 98.1 F 69 20 163/71 100 08/22/18 06:00 08/22/18 09:00 08/22/18 09:00 08/22/18 09:00 08/22/18 09:00 Active Medications Acetaminophen (Tylenol -) 650 mg PO Q4H PRN PRN Reason: FEVER Last Admin: 08/21/18 21:29 Dose: 650 mg Amlodipine Besylate (Norvasc -) 5 mg PO DAILY [facility] Aspirin (Asa -) 81 mg PO DAILY [facility] Last Admin: 08/21/18 09:59 Dose: 81 mg Atorvastatin Calcium (Lipitor -) 80 mg PO HS [facility] Last Admin: 08/21/18 21:28 Dose: 80 mg Carvedilol (Coreg -) 25 mg PO BID [facility] Last Admin: 08/21/18 21:27 Dose: 25 mg Chlorhexidine Gluconate (Hibiclens For Decolonization -) 1 applic TP HS [facility] Last Admin: 08/21/18 22:19 Dose: 1 applic Clopidogrel Bisulfate (Plavix -) 75 mg PO DAILY [facility] Last Admin: 08/21/18 10:00 Dose: 75 mg Fluticasone Propionate (Flonase -) 1 spray NS BID [facility] Last Admin: 08/21/18 21:50 Dose: 1 spray Guaifenesin/Codeine Phosphate (Robitussin Ac -) 10 ml PO Q6H PRN PRN Reason: COUGH Last Admin: 08/21/18 23:29 Dose: 10 ml Heparin Sodium (Porcine) (Heparin -) 5,000 unit SQ TID [facility] Last Admin: 08/22/18 06:22 Dose: 5,000 unit Meropenem 500 mg/ Dextrose 100 mls @ 200 mls/hr IVPB Q12H [facility] Last Admin: 08/22/18 06:23 Dose: 200 mls/hr Furosemide 100 mg/ Dextrose 100 mls @ 5 mls/hr IVPB TITR [facility]; Protocol Last Titration: 08/21/18 19:29 Dose: 10 mg/hr, 10 mls/hr Dobutamine HCl 250,000 mcg/ (Sodium Chloride) 250 mls @ 19.86 mls/hr IV TITR [facility]; Protocol Last Titration: 08/22/18 01:26 Dose: 0 mcg/kg/min, 0 mls/hr Insulin Aspart (Novolog Vial Sliding Scale -) 1 vial SQ HS [facility]; Protocol Last Admin: 08/21/18 21:49 Dose: 4 unit Insulin Aspart (Novolog Vial Sliding Scale -) 1 vial SQ TIDAC [facility]; Protocol Last Admin: 08/22/18 06:37 Dose: 14 units Insulin Detemir (Levemir Vial) 20 units SQ HS [facility] Last Admin: 08/21/18 21:36 Dose: 20 units Lactobacillus Acidophilus (Bacid -) 1 tab PO DAILY [facility] Last Admin: 08/21/18 09:59 Dose: 1 tab Mupirocin (Bactroban Ointment (For Decolonization) -) 1 applic NS BID [facility] Stop: 08/22/18 21:59 Last Admin: 08/21/18 21:29 Dose: 1 applic Mupirocin (Bactroban 2% Ointment -) 1 applic TP DAILY [facility] Last Admin: 08/21/18 10:01 Dose: 1 applic [id number] Ethyl Esters (Lovaza -) 2 gm PO BID [facility] Last Admin: 08/21/18 21:28 Dose: 2 gm Ranitidine HCl (Zantac -) 150 mg PO BID [facility] Last Admin: 08/21/18 21:28 Dose: 150 mg Ranolazine (Ranexa -) 500 mg PO BID [facility] Last Admin: 08/21/18 21:28 Dose: 500 mg Sodium Chloride ([place] Nasal [place] -) 2 spray NS TID PRN PRN Reason: NASAL CONGESTION Last Admin: 08/21/18 21:50 Dose: 2 spray GENERAL: A&Ox3, :Patient seen and examined in the ICU. Awake and alert. Reports SOB is worse today. No CP. Used NIPPV overnight. OBJECTIVE: Intake & Output 08/18/18 08/19/18 08/20/18 08/21/18 23:59 23:59 23:59 23:59 Intake Total 4755 4354 1100 300 Output Total 6508 774 1457 1300 Balance 2955 3654 -1000 -1000 Weight 288 lb 12.889 oz 293 lb 292 lb Last Vital Signs Temp Pulse Resp BP Pulse Ox 97.3 F L 65 15 132/58 L 96 08/21/18 08:00 08/21/18 08:00 08/21/18 08:00 08/21/18 08:00 08/20/18 21:00 Active Medications Acetaminophen (Tylenol -) 650 mg PO Q4H PRN PRN Reason: FEVER Last Admin: 08/21/18 04:30 Dose: 650 mg Aspirin (Asa -) 81 mg PO DAILY [facility] Last Admin: 08/20/18 09:55 Dose: 81 mg Atorvastatin Calcium (Lipitor -) 80 mg PO HS [facility] Last Admin: 08/20/18 22:15 Dose: 80 mg Carvedilol (Coreg -) 25 mg PO BID [facility] Last Admin: 08/20/18 22:15 Dose: 25 mg Chlorhexidine Gluconate (Hibiclens For Decolonization -) 1 applic TP HS [facility] Last Admin: 08/20/18 22:16 Dose: 1 applic Clopidogrel Bisulfate (Plavix -) 75 mg PO DAILY [facility] Last Admin: 08/20/18 09:56 Dose: 75 mg Fluticasone Propionate (Flonase -) 1 spray NS BID [facility] Last Admin: 08/20/18 22:18 Dose: 1 spray Guaifenesin/Codeine Phosphate (Robitussin Ac -) 5 ml PO Q8H PRN PRN Reason: COUGH Last Admin: 08/21/18 05:40 Dose: 5 ml Heparin Sodium (Porcine) (Heparin -) 5,000 unit SQ TID [facility] Last Admin: 08/21/18 05:12 Dose: Not Given Meropenem 500 mg/ Dextrose 100 mls @ 200 mls/hr IVPB Q12H [facility] Last Admin: 08/21/18 05:46 Dose: 200 mls/hr Insulin Aspart (Novolog Vial Sliding Scale -) 1 vial SQ HS [facility]; Protocol Last Admin: 08/20/18 22:18 Dose: 8 unit Insulin Aspart (Novolog Vial Sliding Scale -) 1 vial SQ TIDAC [facility]; Protocol Last Admin: 08/21/18 06:47 Dose: 8 units Insulin Detemir (Levemir Vial) 12 units SQ HS [facility] Last Admin: 08/20/18 22:16 Dose: 12 unit Lactobacillus Acidophilus (Bacid -) 1 tab PO DAILY [facility] Last Admin: 08/20/18 09:55 Dose: 1 tab Mupirocin (Bactroban Ointment (For Decolonization) -) 1 applic NS BID [facility] Stop: 08/22/18 21:59 Last Admin: 08/20/18 22:15 Dose: 1 applic Mupirocin (Bactroban 2% Ointment -) 1 applic TP DAILY [facility] Last Admin: 08/20/18 09:56 Dose: 1 applic [id number]-[id number] Ethyl Esters (Lovaza -) 2 gm PO BID [facility] Last Admin: 08/20/18 22:15 Dose: 2 gm Ranitidine HCl (Zantac -) 150 mg PO BID [facility] Last Admin: 08/20/18 22:15 Dose: 150 mg Ranolazine (Ranexa -) 500 mg PO BID [facility] Last Admin: 08/20/18 22:15 Dose: 500 mg Sodium Chloride ([place] Nasal [place] -) 2 spray NS TID PRN PRN Reason: NASAL CONGESTION Last Admin: 08/20/18 12:02 Dose: 2 spray GENERAL: A&Ox3, Less tachypneic at rest HEAD: NC/AT EYES: PERRLA, EOMI EARS, NOSE, THROAT: MMM NECK: Normal range of motion, supple without lymphadenopathy, JVD, or masses. LUNGS: bibasilar rhonchi HEART: Paced rhythm, no m/r/g ABDOMEN: (+) BS, soft, NT, ND UPPER EXTREMITIES: 2+ pulses, warm, well-perfused. No cyanosis. No clubbing. Cap refill <2 seconds. No peripheral edema. LOWER EXTREMITIES: Improving erythema of left second toe, less edema NEUROLOGICAL: Non-focal PSYCHIATRIC: Cooperative. Good eye contact. Appropriate mood and affect. Laboratory Results - last 24 hr 08/21/18 08/21/18 08/21/18 14:46 21:30 21:30 WBC 6.0 RBC 2.77 L Hgb 8.7 L Hct 23.9 L MCV 86.3 MCH 31.3 MCHC 36.2 H RDW 16.4 H Plt Count 199 D MPV 7.2 L Absolute Neuts (auto) 4.7 Neutrophils % 79.5 Lymphocytes % 8.6 D Monocytes % 8.9 Eosinophils % 2.7 Basophils % 0.3 Nucleated RBC % 0 PTT (Actin FS) Sodium 135 L Potassium 4.6 Chloride 104 Carbon Dioxide 23 Anion Gap 9 BUN 82 H Creatinine 4.3 H Creat Clearance w eGFR 14.36 Random Glucose 276 H Calcium 8.1 L Phosphorus Magnesium Random Vancomycin Blood Type A POSITIVE Antibody Screen Negative Crossmatch See Detail 08/22/18 08/22/18 08/22/18 05:15 05:15 05:15 WBC 5.3 RBC 2.78 L Hgb 8.2 L Hct 24.5 L MCV 88.0 MCH 29.3 MCHC 33.3 RDW 17.5 H Plt Count 171 MPV 7.6 Absolute Neuts (auto) 4.0 Neutrophils % 74.6 Lymphocytes % 11.2 D Monocytes % 9.6 Eosinophils % 4.1 Basophils % 0.5 Nucleated RBC % 0 PTT (Actin FS) 29.9 Sodium Potassium Chloride Carbon Dioxide Anion Gap BUN Creatinine Creat Clearance w eGFR Random Glucose Calcium Phosphorus Magnesium Random Vancomycin 24.4 Blood Type Antibody Screen Crossmatch 08/22/18 05:15 WBC RBC Hgb Hct MCV MCH MCHC RDW Plt Count MPV Absolute Neuts (auto) Neutrophils % Lymphocytes % Monocytes % Eosinophils % Basophils % Nucleated RBC % PTT (Actin FS) Sodium 133 L Potassium 4.5 Chloride 101 Carbon Dioxide 23 Anion Gap 10 BUN 81 H Creatinine 4.4 H Creat Clearance w eGFR 13.98 Random Glucose 362 H* Calcium 7.9 L Phosphorus 5.0 H Magnesium 2.0 Random Vancomycin Blood Type Antibody Screen Crossmatch ASSESSMENT/PLAN: Sepsis due to Cellulitus / skin infection IDDM on insulin pump HTN HLD CAD S/P CABG S/P AICD CHF Aortic stenosis CKD NSTEMI Sleep Disordered Breathing Dobutamine and Lasix drip Noted Norvasc and Ranexa started Close monitoring of Electrolytes ABX per ID O2 as needed Continue Coreg Monitor off Clonidine VTE prophylaxis ASA Plavix Glycemic control CPAP QHS and PRN ICU monitoring due to tenuous overall status Dr López Critical care time spent in reviewing chart, evaluating patient and formulating plan - 36 minutes
[2018-08-22] MEDS: LACTOBACILLUS ACIDOPHILUS 1 TABLET PO SCH (09:55)
[2018-08-22] MEDS: ASPIRIN 81 MG CHEWABLE TABLETS PO SCH (09:55)
[2018-08-22] MEDS: CARVEDILOL 25 MG TABLET (FP) PO SCH ×2 (09:55→21:00)
[2018-08-22] MEDS: OMEGA-3 ACID ETHYL ESTERS (FATTY-ACIDS) 1 GM CAPSULE (FP) PO SCH ×2 (09:56→21:02)
[2018-08-22] MEDS: amLODIPine BESYLATE 5 MG TABLET (FP) PO SCH (09:56)
[2018-08-22] MEDS: CLOPIDOGREL BISULFATE 75 MG TABLET (FP) PO SCH (09:56)
[2018-08-22] MEDS: MUPIROCIN 2% TOPICAL OINTMENT FOR DECOLONIZATION NS SCH (09:56)
--- NOTE | 2018-08-22 10:04 | PN ---
Physical Exam: SUBJECTIVE: Patient seen and examined at bedside. Hypertensive overnight. Events noted. Breathing is improved. Feels better overall. Denies CP,VELEZ, abdominal pain, nausea or vomiting. OBJECTIVE: Vital Signs Period Temp Pulse Resp BP Sys/Gallo Pulse Ox Last 24 Hr 97.3 F-99.1 F 65-83 11-21 134-187/52-80 100-100 GENERAL: A&Ox3, NAD HEAD: NC/AT EYES: PERRLA, EOMI EARS, NOSE, THROAT: MMM NECK: Normal range of motion, supple without lymphadenopathy LUNGS: bibasilar crackles appreciated, breathing labored, difficulty with inspiratory effort HEART: Paced rhythm, no m/r/g ABDOMEN: +bs, soft, TTP in RUQ UPPER EXTREMITIES: 2+ pulses, warm, well-perfused. No cyanosis. No clubbing. Cap refill <2 seconds. No peripheral edema. LOWER EXTREMITIES: 1+ pulses, warm, well-perfused. Distal LLE swollen. Erythematous ulcer of left second toe, receding from demarcation line. Warmth throughout left calf relative to right, left calf significantly tender. NEUROLOGICAL: pole classifier, motor, sensory systems w/o focal deficit PSYCHIATRIC: Cooperative. Good eye contact. Appropriate mood and affect. SKIN: Warm, dry, normal turgor Laboratory Results - last 24 hr 08/21/18 08/21/18 08/21/18 14:46 21:30 21:30 WBC 6.0 RBC 2.77 L Hgb 8.7 L Hct 23.9 L MCV 86.3 MCH 31.3 MCHC 36.2 H RDW 16.4 H Plt Count 199 D MPV 7.2 L Absolute Neuts (auto) 4.7 Neutrophils % 79.5 Lymphocytes % 8.6 D Monocytes % 8.9 Eosinophils % 2.7 Basophils % 0.3 Nucleated RBC % 0 PTT (Actin FS) Sodium 135 L Potassium 4.6 Chloride 104 Carbon Dioxide 23 Anion Gap 9 BUN 82 H Creatinine 4.3 H Creat Clearance w eGFR 14.36 Random Glucose 276 H Calcium 8.1 L Phosphorus Magnesium Random Vancomycin Blood Type A POSITIVE Antibody Screen Negative Crossmatch See Detail 08/22/18 08/22/18 08/22/18 05:15 05:15 05:15 WBC 5.3 RBC 2.78 L Hgb 8.2 L Hct 24.5 L MCV 88.0 MCH 29.3 MCHC 33.3 RDW 17.5 H Plt Count 171 MPV 7.6 Absolute Neuts (auto) 4.0 Neutrophils % 74.6 Lymphocytes % 11.2 D Monocytes % 9.6 Eosinophils % 4.1 Basophils % 0.5 Nucleated RBC % 0 PTT (Actin FS) 29.9 Sodium Potassium Chloride Carbon Dioxide Anion Gap BUN Creatinine Creat Clearance w eGFR Random Glucose Calcium Phosphorus Magnesium Random Vancomycin 24.4 Blood Type Antibody Screen Crossmatch 08/22/18 05:15 WBC RBC Hgb Hct MCV MCH MCHC RDW Plt Count MPV Absolute Neuts (auto) Neutrophils % Lymphocytes % Monocytes % Eosinophils % Basophils % Nucleated RBC % PTT (Actin FS) Sodium 133 L Potassium 4.5 Chloride 101 Carbon Dioxide 23 Anion Gap 10 BUN 81 H Creatinine 4.4 H Creat Clearance w eGFR 13.98 Random Glucose 362 H* Calcium 7.9 L Phosphorus 5.0 H Magnesium 2.0 Random Vancomycin Blood Type Antibody Screen Crossmatch Active Medications Generic Name Dose Route Start Last Admin Trade Name Freq PRN Reason Stop Dose Admin Acetaminophen 650 mg 08/17/18 18:08 08/21/18 21:29 Tylenol - PO 650 mg Q4H PRN Administration FEVER Amlodipine Besylate 5 mg 08/22/18 10:00 08/22/18 09:56 Norvasc - PO 5 mg DAILY [facility] Administration Aspirin 81 mg 08/18/18 10:00 08/22/18 09:55 Asa - PO 81 mg DAILY [facility] Administration Atorvastatin Calcium 80 mg 08/17/18 22:00 08/21/18 21:28 Lipitor - PO 80 mg HS [facility] Administration Carvedilol 25 mg 08/18/18 22:00 08/22/18 09:55 Coreg - PO 25 mg BID [facility] Administration Chlorhexidine Gluconate 1 applic 08/17/18 22:00 08/21/18 22:19 Hibiclens For Decolonization - TP 1 applic HS [facility] Administration Clopidogrel Bisulfate 75 mg 08/18/18 10:00 08/22/18 09:56 Plavix - PO 75 mg DAILY [facility] Administration Fluticasone Propionate 1 spray 08/20/18 11:15 08/21/18 21:50 Flonase - NS 1 spray BID [facility] Administration Guaifenesin/Codeine Phosphate 10 ml 08/21/18 23:20 08/21/18 23:29 Robitussin Ac - PO 10 ml Q6H PRN Administration COUGH Heparin Sodium (Porcine) 5,000 unit 08/19/18 14:00 08/22/18 06:22 Heparin - SQ 5,000 unit TID [facility] Administration Meropenem 500 mg/ Dextrose 100 mls @ 200 mls/hr 08/17/18 18:45 08/22/18 06:23 IVPB 200 mls/hr Q12H [facility] Administration Furosemide 100 mg/ Dextrose 100 mls @ 5 mls/hr 08/21/18 09:45 08/21/18 19:29 IVPB 10 mg/hr TITR [facility] 10 mls/hr Titration Protocol 5 MG/HR Dobutamine HCl 250,000 mcg/ 250 mls @ 19.86 mls/hr 08/21/18 09:45 08/22/18 01 :26 Sodium Chloride IV 0 mcg/kg/min TITR [facility] 0 mls/hr Titration Protocol 2.5 MCG/KG/MIN Insulin Aspart 1 vial 08/20/18 22:00 08/21/18 21:49 Novolog Vial Sliding Scale - SQ 4 unit HS [facility] Administration Protocol Insulin Aspart 1 vial 08/21/18 16:30 08/22/18 06:37 Novolog Vial Sliding Scale - SQ 14 units TIDAC [facility] Administration Protocol Insulin Detemir 20 units 08/21/18 22:00 08/21/18 21:36 Levemir Vial SQ 20 units HS [facility] Administration Lactobacillus Acidophilus 1 tab 08/19/18 10:00 08/22/18 09:55 Bacid - PO 1 tab DAILY [facility] Administration Mupirocin 1 applic 08/17/18 22:00 08/22/18 09:56 Bactroban Ointment (For Decolonization) - NS 08/22/18 21:59 1 applic BID [facility] Administration Mupirocin 1 applic 08/20/18 10:00 08/21/18 10:01 Bactroban 2% Ointment - TP 1 applic DAILY [facility] Administration Mtapx-6-Hpcb Ethyl Esters 2 gm 08/17/18 22:00 08/22/18 09:56 Lovaza - PO 2 gm BID [facility] Administration Ranitidine HCl 150 mg 08/17/18 22:00 08/21/18 21:28 Zantac - PO 150 mg BID [facility] Administration Ranolazine 500 mg 08/17/18 22:00 08/21/18 21:28 Ranexa - PO 500 mg BID [facility] Administration Sodium Chloride 2 spray 08/20/18 11:06 08/21/18 21:50 [place] Nasal [place] - NS 2 spray TID PRN Administration NASAL CONGESTION ASSESSMENT/PLAN: 57 y/o M w/ PMHx IDDM (on insulin pump), HTN, HLD, CAD s/p CABG and s/p AICD, CHF, Aortic stenosis, CKD, p/w fever, rigors, malaise x 1 day, admitted to ICU for NSTEMI and sepsis. #CV -seen by Dr. Mullen restarted Dobutamine. -troponins downtrended, completed heparin gtt, now on prophylactic heparin subq -congestion on CXR shows some improvement. -metolazone + IV Lasix push this AM -Continue Lasix gtt + dobutamine gtt per cardiology -repeat BMP, Mg, Phos this PM -patient agrees to central line placement under ultrasound guidance if necessary for pressure support -per cardiology, ASA/Plavix, Lipitor, Lovaza, Ranexa -cardiology recommends Entresto if cleared by nephrology -maintain K > 4.5, Mg > 2 -hold further anti-hypertensives #heme -Hb fell to 7.3 -plan to transfuse 1U this PM following diuresis -repeat CBC this PM #ID -ID consulted and case discussed -avoid nephrotoxic ABx -cont meropenem as per ID -C diff studies order in light of worsening diarrhea -Pt's business librarian, Dr. Harley Hall, declines to see patient in ICU -wound care and in-house podiatry consulted -no surgical intervention at this time -wound care and podiatry recommend MRI, however cardiac hardware precludes MR study -bone scan ordered, Pt requires medical stabilization first -08/20/18 podiatry performed bedside I&D, "minimal serous drainage noted from distal aspect of the 2nd digit" #renal/urology -nephrology following -per nephrology, "Urine Sodium low consistent with volume depletion with preserved tubular function" -Cr above CKD baseline -fluids held d/t pulm congestion -IV Lasix d/t pulm congestion -avoid nephrotoxic agents -joiner in place #pulmonary -NC titrate to >95% O2 -flonase/ocean NS #endocrinology -endocrinology following -off insulin pump -tight BGM and SSI + levemir per endocrinology #FEN -no IVF, Lasix as needed -monitor and correct electrolytes -diabetic diet #PPx -DVT: heparin subq -GI: Zantac #code -full #dispo -cont to monitor in ICU Visit type - Emergency Visit Emergency Visit: Yes ED Registration Date: 08/17/18 Care time: The patient presented to the Emergency Department on the above date and was hospitalized for further evaluation of their emergent condition. - New Patient This patient is new to me today: Yes Date on this admission: 08/22/18 - Critical Care Critical Care patient: Yes Total Critical Care Time (in minutes): 33 Critical Care Statement: The care of this patient involved high complexity decision making to prevent further life threatening deterioration of the patient 's condition and/or to evaluate & treat vital organ system(s) failure or risk of failure.
[2018-08-22] MEDS: DOBUTAMINE HCL 250,000 MCG in SODIUM CHLORIDE 230 ML IV SCH (10:23)
[2018-08-22] MEDS: RANOLAZINE E.R. 500 MG TABLET (FP) PO SCH ×2 (10:23→21:00)
[2018-08-22] MEDS: FUROSEMIDE INJECTION 100 MG in DEXTROSE 5%-WATER - 90 ML IVPB SCH (10:23)
[2018-08-22] MEDS: RANITIDINE HCL 150 MG TABLET (FP) PO SCH ×2 (10:23→21:02)
[2018-08-22] MEDS: MUPIROCIN 2% TOPICAL OINTMENT 22 GM TUBE TP SCH (10:23)
[2018-08-22] MEDS: FLUTICASONE PROP 0.05% 16 GM NASAL SPRAY NS SCH (10:23)
--- NOTE | 2018-08-22 11:39 | PN ---
Progress Note, Physician History of Present Illness: Awake, alert in bed C/O L lower calf pain. No c/o toe pain Doppler no DVT Temps down Afebrile No c/o chest pain/ dyspnea WBC WNL vancomycin T 24 Cultures no growth - Current Medication List Current Medications: Active Medications Acetaminophen (Tylenol -) 650 mg PO Q4H PRN PRN Reason: FEVER Last Admin: 08/21/18 21:29 Dose: 650 mg Amlodipine Besylate (Norvasc -) 5 mg PO DAILY [facility] Last Admin: 08/22/18 09:56 Dose: 5 mg Aspirin (Asa -) 81 mg PO DAILY [facility] Last Admin: 08/22/18 09:55 Dose: 81 mg Atorvastatin Calcium (Lipitor -) 80 mg PO HS [facility] Last Admin: 08/21/18 21:28 Dose: 80 mg Carvedilol (Coreg -) 25 mg PO BID [facility] Last Admin: 08/22/18 09:55 Dose: 25 mg Chlorhexidine Gluconate (Hibiclens For Decolonization -) 1 applic TP HS [facility] Last Admin: 08/21/18 22:19 Dose: 1 applic Clopidogrel Bisulfate (Plavix -) 75 mg PO DAILY [facility] Last Admin: 08/22/18 09:56 Dose: 75 mg Fluticasone Propionate (Flonase -) 1 spray NS BID [facility] Last Admin: 08/22/18 10:23 Dose: 1 spray Guaifenesin/Codeine Phosphate (Robitussin Ac -) 10 ml PO Q6H PRN PRN Reason: COUGH Last Admin: 08/21/18 23:29 Dose: 10 ml Heparin Sodium (Porcine) (Heparin -) 5,000 unit SQ TID [facility] Last Admin: 08/22/18 06:22 Dose: 5,000 unit Meropenem 500 mg/ Dextrose 100 mls @ 200 mls/hr IVPB Q12H [facility] Last Admin: 08/22/18 06:23 Dose: 200 mls/hr Furosemide 100 mg/ Dextrose 100 mls @ 5 mls/hr IVPB TITR [facility]; Protocol Last Admin: 08/22/18 10:23 Dose: Not Given Dobutamine HCl 250,000 mcg/ (Sodium Chloride) 250 mls @ 19.86 mls/hr IV TITR [facility]; Protocol Last Admin: 08/22/18 10:23 Dose: Not Given Insulin Aspart (Novolog Vial Sliding Scale -) 1 vial SQ HS [facility]; Protocol Last Admin: 08/21/18 21:49 Dose: 4 unit Insulin Aspart (Novolog Vial Sliding Scale -) 1 vial SQ TIDAC [facility]; Protocol Last Admin: 08/22/18 06:37 Dose: 14 units Insulin Detemir (Levemir Vial) 20 units SQ HS [facility] Last Admin: 08/21/18 21:36 Dose: 20 units Lactobacillus Acidophilus (Bacid -) 1 tab PO DAILY [facility] Last Admin: 08/22/18 09:55 Dose: 1 tab Mupirocin (Bactroban Ointment (For Decolonization) -) 1 applic NS BID [facility] Stop: 08/22/18 21:59 Last Admin: 08/22/18 09:56 Dose: 1 applic Mupirocin (Bactroban 2% Ointment -) 1 applic TP DAILY [facility] Last Admin: 08/22/18 10:23 Dose: 1 applic [id number] Ethyl Esters (Lovaza -) 2 gm PO BID [facility] Last Admin: 08/22/18 09:56 Dose: 2 gm Ranitidine HCl (Zantac -) 150 mg PO BID [facility] Last Admin: 08/22/18 10:23 Dose: 150 mg Ranolazine (Ranexa -) 500 mg PO BID [facility] Last Admin: 08/22/18 10:23 Dose: 500 mg Sodium Chloride ([place] Nasal [place] -) 2 spray NS TID PRN PRN Reason: NASAL CONGESTION Last Admin: 08/21/18 21:50 Dose: 2 spray - Objective Vital Signs: Vital Signs Temperature 98.6 F 08/22/18 10:00 Pulse Rate 77 08/22/18 10:23 Respiratory Rate 16 08/22/18 10:00 Blood Pressure 165/68 08/22/18 10:00 O2 Sat by Pulse Oximetry (%) 100 08/22/18 09:00 Constitutional: Yes: No Distress, Obese Cardiovascular: Yes: Regular Rate and Rhythm, S1, S2 Respiratory: Yes: Diminished Gastrointestinal: Yes: Normal Bowel Sounds, Soft, Abdomen, Obese. No: Tenderness Extremities: Yes: Other (+ tenderness/ erythema distal L calf. Decreased erythema 2nd toe. Dry ulcer distal tip) Labs: CBC, BMP 08/22/18 05:15 08/22/18 05:15 INR, PTT INR 1.23 (0.83-1.09) H 08/18/18 08:05 Assessment/Plan Sepsis Cellulitis L 2nd toe/ distal L LE improved Renal failure Diabetes mellitus Check vancomycin trough am Substitute ceftriaxone
[2018-08-22] MEDS: ACETAMINOPHEN 325 MG TABLET (FP) PO PRN (11:44)
--- NOTE | 2018-08-22 11:46 | PN ---
Physical Exam: SUBJECTIVE: Patient seen and examined, breathing better, still some dyspnea. Urinating well, left toe pain improved. No nausea, vomiting or abdominal pain. denies any chest pressure, arm or jaw pain. OBJECTIVE: Vital Signs Period Temp Pulse Resp BP Sys/Gallo Pulse Ox Last 24 Hr 97.3 F-99.1 F 67-92 11-21 134-187/52-80 100-100 GENERAL: The patient is awake, alert, tachypnea improved, weak looking HEAD: Normal with no signs of trauma. EYES: PERRL, extraocular movements intact, sclera anicteric, conjunctiva clear. No ptosis. NECK: Body habitus limiting JVD visualizatonTrachea midline, full range of motion, supple. LUNGS: Improved bibasilar rales, positive air entry, no wheezing, some use of accessory muscles of respiration,improved exam HEART: S1S2 irregular ABDOMEN: Soft, obese, nontender, nondistended, normoactive bowel sounds, no guarding, no rebound, EXTREMITIES: left second toe erythema improved, ulcer with dried blood/ ecchymosis at the tip, swelling of foot markedly improved, positive DP pulses PSYCH: Normal mood, normal affect. Laboratory Results - last 24 hr 08/21/18 08/21/18 08/21/18 14:46 21:30 21:30 WBC 6.0 RBC 2.77 L Hgb 8.7 L Hct 23.9 L MCV 86.3 MCH 31.3 MCHC 36.2 H RDW 16.4 H Plt Count 199 D MPV 7.2 L Absolute Neuts (auto) 4.7 Neutrophils % 79.5 Lymphocytes % 8.6 D Monocytes % 8.9 Eosinophils % 2.7 Basophils % 0.3 Nucleated RBC % 0 PTT (Actin FS) Sodium 135 L Potassium 4.6 Chloride 104 Carbon Dioxide 23 Anion Gap 9 BUN 82 H Creatinine 4.3 H Creat Clearance w eGFR 14.36 Random Glucose 276 H Calcium 8.1 L Phosphorus Magnesium Random Vancomycin Blood Type A POSITIVE Antibody Screen Negative Crossmatch See Detail 08/22/18 08/22/18 08/22/18 05:15 05:15 05:15 WBC 5.3 RBC 2.78 L Hgb 8.2 L Hct 24.5 L MCV 88.0 MCH 29.3 MCHC 33.3 RDW 17.5 H Plt Count 171 MPV 7.6 Absolute Neuts (auto) 4.0 Neutrophils % 74.6 Lymphocytes % 11.2 D Monocytes % 9.6 Eosinophils % 4.1 Basophils % 0.5 Nucleated RBC % 0 PTT (Actin FS) 29.9 Sodium Potassium Chloride Carbon Dioxide Anion Gap BUN Creatinine Creat Clearance w eGFR Random Glucose Calcium Phosphorus Magnesium Random Vancomycin 24.4 Blood Type Antibody Screen Crossmatch 08/22/18 05:15 WBC RBC Hgb Hct MCV MCH MCHC RDW Plt Count MPV Absolute Neuts (auto) Neutrophils % Lymphocytes % Monocytes % Eosinophils % Basophils % Nucleated RBC % PTT (Actin FS) Sodium 133 L Potassium 4.5 Chloride 101 Carbon Dioxide 23 Anion Gap 10 BUN 81 H Creatinine 4.4 H Creat Clearance w eGFR 13.98 Random Glucose 362 H* Calcium 7.9 L Phosphorus 5.0 H Magnesium 2.0 Random Vancomycin Blood Type Antibody Screen Crossmatch Active Medications Generic Name Dose Route Start Last Admin Trade Name Freq PRN Reason Stop Dose Admin Acetaminophen 650 mg 08/17/18 18:08 08/22/18 11:44 Tylenol - PO 650 mg Q4H PRN Administration FEVER Amlodipine Besylate 5 mg 08/22/18 10:00 08/22/18 09:56 Norvasc - PO 5 mg DAILY [facility] Administration Aspirin 81 mg 08/18/18 10:00 08/22/18 09:55 Asa - PO 81 mg DAILY [facility] Administration Atorvastatin Calcium 80 mg 08/17/18 22:00 08/21/18 21:28 Lipitor - PO 80 mg HS [facility] Administration Carvedilol 25 mg 08/18/18 22:00 08/22/18 09:55 Coreg - PO 25 mg BID [facility] Administration Chlorhexidine Gluconate 1 applic 08/17/18 22:00 08/21/18 22:19 Hibiclens For Decolonization - TP 1 applic HS [facility] Administration Clopidogrel Bisulfate 75 mg 08/18/18 10:00 08/22/18 09:56 Plavix - PO 75 mg DAILY [facility] Administration Fluticasone Propionate 1 spray 08/20/18 11:15 08/22/18 10:23 Flonase - NS 1 spray BID [facility] Administration Guaifenesin/Codeine Phosphate 10 ml 08/21/18 23:20 08/21/18 23:29 Robitussin Ac - PO 10 ml Q6H PRN Administration COUGH Heparin Sodium (Porcine) 5,000 unit 08/19/18 14:00 08/22/18 06:22 Heparin - SQ 5,000 unit TID [facility] Administration Furosemide 100 mg/ Dextrose 100 mls @ 5 mls/hr 08/21/18 09:45 08/22/18 10:23 IVPB Not Given TITR [facility] Protocol 5 MG/HR Dobutamine HCl 250,000 mcg/ 250 mls @ 19.86 mls/hr 08/21/18 09:45 08/22/18 10 :23 Sodium Chloride IV Not Given TITR [facility] Protocol 2.5 MCG/KG/MIN Ceftriaxone Sodium 2 gm in 50 mls @ 100 mls/hr 08/22/18 11:45 Ceftriaxone 2 Gm-D5w Bag IVPB DAILY [facility] Protocol Insulin Aspart 1 vial 08/20/18 22:00 08/21/18 21:49 Novolog Vial Sliding Scale - SQ 4 unit HS [facility] Administration Protocol Insulin Aspart 1 vial 08/21/18 16:30 08/22/18 11:45 Novolog Vial Sliding Scale - SQ 10 units TIDAC [facility] Administration Protocol Insulin Detemir 20 units 08/21/18 22:00 08/21/18 21:36 Levemir Vial SQ 20 units HS [facility] Administration Lactobacillus Acidophilus 1 tab 08/19/18 10:00 08/22/18 09:55 Bacid - PO 1 tab DAILY [facility] Administration Mupirocin 1 applic 08/17/18 22:00 08/22/18 09:56 Bactroban Ointment (For Decolonization) - NS 08/22/18 21:59 1 applic BID [facility] Administration Mupirocin 1 applic 08/20/18 10:00 08/22/18 10:23 Bactroban 2% Ointment - TP 1 applic DAILY [facility] Administration [id number]-1-[id number] Ethyl Esters 2 gm 08/17/18 22:00 08/22/18 09:56 Lovaza - PO 2 gm BID [facility] Administration Ranitidine HCl 150 mg 08/17/18 22:00 08/22/18 10:23 Zantac - PO 150 mg BID [facility] Administration Ranolazine 500 mg 08/17/18 22:00 08/22/18 10:23 Ranexa - PO 500 mg BID [facility] Administration Sodium Chloride 2 spray 08/20/18 11:06 08/21/18 21:50 [place] Nasal [place] - NS 2 spray TID PRN Administration NASAL CONGESTION Telemetry, occasional PVCs, improved Microbiology 08/17/18 14:10 Blood - Peripheral Venous Blood Culture - Preliminary NO GROWTH OBTAINED AFTER 96 HOURS, INCUBATION TO CONTINUE FOR 1 DAYS. 08/17/18 14:25 Blood - Peripheral Venous Blood Culture - Preliminary NO GROWTH OBTAINED AFTER 96 HOURS, INCUBATION TO CONTINUE FOR 1 DAYS. 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, abnormal stress test in 06/2017, Left ureteral stone with hydronenphrosis s/p recent stenting, comes with sepsis after left toenail removal and noted with elevated troponin -Septic shock, suspect from left toe infection, cellulitis, r/o osteomyelitis -Elevated troponin, NSTEMI vs Demand type II in the setting of above -Acute systolic heart failure exacerbation in the setting fluid resuscitation and SD -Acute hypoxemic respiratory failure -NSVT/PVCs/Ventricular trigeminy -Thrombocytopenia, likely from sepsis -CAD s/p CABG, ICD -HTN -HLD -IDDM on insulin pump -CKD stage IV -Epistaxis Plan: Breathing improved. 5.5 urine output last 24 hours. Cardiology input noted. Continue lasix/dobutamine drip. Nephrology input appreciated. Strict I/Os and daily weights. ID input noted. s/p 4 days of meropenem, change to Ceftriaxone day 1 (total abx day 5). Vanco renal dosing, repeat levels in AM. Foot exam improved. For bone scan as hemodynamics permit. Cultures neg so far Podiatry input noted, further imaging and surgical plan when hemodynamics improve. Cardiology input noted. s/p Heparin drip, d/charles after nose bleed, 2D echo noted. Needs cardiac risk stratification when improved, however, renal function limiting factor. Off insulin pump for now. ISS, diabetic diet. Endocrine input noted. Increase levemir to 25 units. ASA/plavix/ranexa/statin/clonidine. less PVC/VT after coreg resumption. Plan discussed with patient, all questions answered. Care co-ordinated with ICU Total critical care time spent 36 min. Visit type - Emergency Visit Emergency Visit: Yes ED Registration Date: 08/17/18 Care time: The patient presented to the Emergency Department on the above date and was hospitalized for further evaluation of their emergent condition. - New Patient This patient is new to me today: No - Critical Care Critical Care patient: Yes Total Critical Care Time (in minutes): 36 Critical Care Statement: The care of this patient involved high complexity decision making to prevent further life threatening deterioration of the patient 's condition and/or to evaluate & treat vital organ system(s) failure or risk of failure.
[2018-08-22] MEDS ORDERED: DEXTROSE 5%-WATER 100 ML IVPB ONE (12:45)
[2018-08-22] MEDS: CEFTRIAXONE 2 GM in DEXTROSE 5%-WATER 100 ML IVPB SCH (12:47)
--- NOTE | 2018-08-22 12:55 | PN ---
Progress Note (short form) - Note Progress Note: Feels better c/O left leg pain Blood sugar 200 to 300s with increased food intake Vital Signs Period Temp Pulse Resp BP Sys/Gallo Pulse Ox Last 24 Hr 97.5 F-99.1 F 67-92 11-21 134-187/52-80 100-100 PE: AOx3 Neck: Supple, HEENT: EOMI Lungs: cTA CVS: S1S2 Abd: Benign EXt: decreased erythema left 2nd toe Neuro: No focal deficit CMP Sodium 133 mmol/L (136-145) L 08/22/18 05:15 Potassium 4.5 mmol/L (3.5-5.1) 08/22/18 05:15 Chloride 101 mmol/L (98-107) 08/22/18 05:15 Carbon Dioxide 23 mmol/L (21-32) 08/22/18 05:15 Anion Gap 10 MMOL/L (8-16) 08/22/18 05:15 BUN 81 mg/dL (7-18) H 08/22/18 05:15 Creatinine 4.4 mg/dL (0.55-1.3) H 08/22/18 05:15 Creat Clearance w eGFR 13.98 (>60) 08/22/18 05:15 POC Glucometer 302.44556 UNITS (80-120) 08/20/18 12:59 Random Glucose 362 mg/dL (74-106) H* 08/22/18 05:15 Hemoglobin A1c % 6.0 % (4.2-6.3) 08/19/18 05:15 Lactic Acid 1.1 mmol/L (0.4-2.0) 08/17/18 20:20 Calcium 7.9 mg/dL (8.5-10.1) L 08/22/18 05:15 Phosphorus 5.0 mg/dL (2.5-4.9) H 08/22/18 05:15 Magnesium 2.0 mg/dL (1.8-2.4) 08/22/18 05:15 Total Bilirubin 0.8 mg/dL (0.2-1) 08/19/18 05:15 AST 83 U/L (15-37) H 08/19/18 05:15 ALT 41 U/L (13-61) 08/19/18 05:15 Alkaline Phosphatase 77 U/L (45-117) 08/19/18 05:15 Creatine Kinase 402 IU/L (26-308) H 08/19/18 05:15 Creatine Kinase Index 2.8 % (0.0-5.0) 08/19/18 05:15 CK-MB (CK-2) 11.6 ng/mL (0.5-3.6) H 08/19/18 05:15 Troponin I 19.10 ng/ml (0.00-0.05) H* 08/19/18 05:15 B-Natriuretic Peptide 26387.6 pg/ml (5-125) H 08/20/18 05:30 Total Protein 6.7 g/dl (6.4-8.2) 08/19/18 05:15 Albumin 2.5 g/dl (3.4-5.0) L 08/19/18 05:15 Current Medications Generic Name Dose Route Start Last Admin Trade Name Freq PRN Reason Stop Dose Admin Acetaminophen 650 mg 08/17/18 18:08 08/22/18 11:44 Tylenol - PO 650 mg Q4H PRN Administration FEVER Amlodipine Besylate 5 mg 08/22/18 10:00 08/22/18 09:56 Norvasc - PO 5 mg DAILY [facility] Administration Aspirin 81 mg 08/18/18 10:00 08/22/18 09:55 Asa - PO 81 mg DAILY [facility] Administration Atorvastatin Calcium 80 mg 08/17/18 22:00 08/21/18 21:28 Lipitor - PO 80 mg HS [facility] Administration Carvedilol 25 mg 08/18/18 22:00 08/22/18 09:55 Coreg - PO 25 mg BID [facility] Administration Chlorhexidine Gluconate 1 applic 08/17/18 22:00 08/21/18 22:19 Hibiclens For Decolonization - TP 1 applic HS [facility] Administration Clopidogrel Bisulfate 75 mg 08/18/18 10:00 08/22/18 09:56 Plavix - PO 75 mg DAILY [facility] Administration Fluticasone Propionate 1 spray 08/20/18 11:15 08/22/18 10:23 Flonase - NS 1 spray BID [facility] Administration Guaifenesin/Codeine Phosphate 10 ml 08/21/18 23:20 08/21/18 23:29 Robitussin Ac - PO 10 ml Q6H PRN Administration COUGH Heparin Sodium (Porcine) 5,000 unit 08/19/18 14:00 08/22/18 06:22 Heparin - SQ 5,000 unit TID [facility] Administration Furosemide 100 mg/ Dextrose 100 mls @ 5 mls/hr 08/21/18 09:45 08/22/18 10:23 IVPB Not Given TITR [facility] Protocol 5 MG/HR Dobutamine HCl 250,000 mcg/ 250 mls @ 19.86 mls/hr 08/21/18 09:45 08/22/18 10 :23 Sodium Chloride IV Not Given TITR [facility] Protocol 2.5 MCG/KG/MIN Ceftriaxone Sodium 2 gm/ 100 mls @ 200 mls/hr 08/22/18 11:45 08/22/18 12:47 Dextrose IVPB 200 mls/hr DAILY [facility] Administration Protocol Insulin Aspart 1 vial 08/20/18 22:00 08/21/18 21:49 Novolog Vial Sliding Scale - SQ 4 unit HS [facility] Administration Protocol Insulin Aspart 1 vial 08/21/18 16:30 08/22/18 11:45 Novolog Vial Sliding Scale - SQ 10 units TIDAC [facility] Administration Protocol Insulin Detemir 25 units 08/22/18 22:00 Levemir Vial SQ HS [facility] Lactobacillus Acidophilus 1 tab 08/19/18 10:00 08/22/18 09:55 Bacid - PO 1 tab DAILY [facility] Administration Mupirocin 1 applic 08/17/18 22:00 08/22/18 09:56 Bactroban Ointment (For Decolonization) - NS 08/22/18 21:59 1 applic BID [facility] Administration Mupirocin 1 applic 08/20/18 10:00 08/22/18 10:23 Bactroban 2% Ointment - TP 1 applic DAILY [facility] Administration Qsidz-6-[id number] Ethyl Esters 2 gm 08/17/18 22:00 08/22/18 09:56 Lovaza - PO 2 gm BID [facility] Administration Ranitidine HCl 150 mg 08/17/18 22:00 08/22/18 10:23 Zantac - PO 150 mg BID [facility] Administration Ranolazine 500 mg 08/17/18 22:00 08/22/18 10:23 Ranexa - PO 500 mg BID [facility] Administration Sodium Chloride 2 spray 08/20/18 11:06 08/21/18 21:50 [place] Nasal [place] - NS 2 spray TID PRN Administration NASAL CONGESTION AP: Left 2nd toe cellulitis: improving T2DM On Insulin pump at home CKD HLD CAD/Elevated Troponins: Probably secondary to demand ischemia CHF BGM Q ACHS and 3 AM D/C Levemir as pt will go back on Insulin pump after 6 PM once his brings it today.If the pump is not available pt should get Levemir 28 units at bedtime. Increase Novolog SS coverage IV abx Bone scan or MRI to R/O Osteo Will f/u
[2018-08-22] MEDS: guaiFENesin/CODEINE 10 ML UNIT-DOSE CUPS PO PRN ×2 (14:14→21:00)
[2018-08-22] MEDS ORDERED: FUROSEMIDE 40 MG/4 ML INJECTABLE VIAL ONE (16:31)
--- NOTE | 2018-08-22 16:33 | EKG ---
Test Reason : Blood Pressure : / mmHG Vent. Rate : 066 BPM Atrial Rate : 066 BPM P-R Int : 196 ms QRS Dur : 116 ms QT Int : 478 ms P-R-T Axes : 081 026 110 degrees QTc Int : 501 ms NORMAL SINUS RHYTHM NON SPECIFIC INTRAVENTRICULAR CONDUCTION DELAY NONSPECIFIC ST ABNORMALITY PROLONGED QT ABNORMAL ECG Confirmed by MD JOSSE, EDGAR ([id number]) on 08/22/2018 4:32:52 PM Referred By: Fransico BELL Confirmed By:EDGAR LOAIZA MD
[2018-08-22] MEDS ORDERED: DOBUTAMINE 250 MG/D5W - 250,000 MCG/250 ML INFUS.BAG ONE (18:19)
[2018-08-22] MEDS: ATORVASTATIN CA 80 MG TABLET (FP) PO SCH (21:00)
[2018-08-22] MEDS: CHLORHEXIDINE GLUCONATE 4% CLEANSER FOR DECOLONIZATION TP SCH (21:01)
[2018-08-22] MEDS ORDERED: INSULIN (LEVEMIR) 100 UNITS/ML UNITS SQ SCH (22:00)
[2018-08-22 22:05] LABS: BASO % 0.4 % (0-2.0); EOS % 3.2 % (0-4.5); HEMATOCRIT 24.5 % (35.4-49); HEMOGLOBIN 8.8 GM/dL (11.7-16.9); LYMPH % 9.1 % (8-40); MCH 31.2 pg (25.7-33.7); MEAN CELL VOLUME 86.5 fl (80-96); MEAN PLT VOLUME 7.2 fl (7.5-11.1); MONO % 9.4 % (3.8-10.2); NEUT % 77.9 % (42.8-82.8); PLATELET COUNT 246 K/MM3 (134-434); RBC 2.83 M/mm3 (4.00-5.60); RDW 16.7 % (11.9-15.9); WHITE BLOOD COUNT 6.6 K/mm3 (4.0-10.0)
[2018-08-23] MEDS: FLUTICASONE PROP 0.05% 16 GM NASAL SPRAY NS SCH ×3 (01:06→22:01)
[2018-08-23 06:01] LABS: BASO % 0.8 % (0-2.0); EOS % 3.2 % (0-4.5); HEMATOCRIT 23.7 % (35.4-49); HEMOGLOBIN 8.5 GM/dL (11.7-16.9); LYMPH % 10.2 % (8-40); MCH 30.9 pg (25.7-33.7); MEAN CELL VOLUME 85.7 fl (80-96); MEAN PLT VOLUME 7.2 fl (7.5-11.1); MONO % 9.3 % (3.8-10.2); NEUT % 76.5 % (42.8-82.8); PLATELET COUNT 283 K/MM3 (134-434); RBC 2.77 M/mm3 (4.00-5.60); RDW 16.9 % (11.9-15.9); WHITE BLOOD COUNT 7.2 K/mm3 (4.0-10.0)
[2018-08-23 06:30] LABS: ALBUMIN 2.2 g/dl (3.4-5.0); ALK PHOS 84 U/L (45-117); ANION GAP 9 MMOL/L (8-16); BILIRUBIN,TOTAL 0.5 mg/dL (0.2-1); BLOOD UREA NITROGEN 87 mg/dL (7-18); CALCIUM 8.3 mg/dL (8.5-10.1); CHLORIDE 98 mmol/L (98-107); CO2 27 mmol/L (21-32); CREATININE 4.1 mg/dL (0.55-1.3); GLUCOSE,RANDOM 228 mg/dL (74-106); POTASSIUM 4.2 mmol/L (3.5-5.1); SGOT/AST 21 U/L (15-37); SGPT/ALT 39 U/L (13-61); SODIUM 134 mmol/L (136-145); TOT PROT 6.6 g/dl (6.4-8.2)
[2018-08-23] MEDS ORDERED: DOBUTAMINE 250 MG/D5W - 250,000 MCG/250 ML INFUS.BAG ONE (06:40)
[2018-08-23] MEDS: HEPARIN NA (PORCINE) 5,000 UNITS/ML 1ML VIAL SQ SCH ×3 (06:41→22:01)
[2018-08-23] MEDS: INSULIN SLIDING SCALE (NOVOLOG) 1 VIAL SQ SCH ×4 (06:43→23:20)
[2018-08-23] MEDS: FUROSEMIDE INJECTION 100 MG in DEXTROSE 5%-WATER - 90 ML IVPB SCH ×3 (06:44→12:37)
[2018-08-23] MEDS: DOBUTAMINE HCL 250,000 MCG in SODIUM CHLORIDE 230 ML IV SCH (08:00)
[2018-08-23 09:32] LABS: MAGNESIUM 1.9 mg/dL (1.8-2.4); PHOSPHOROUS 5.6 mg/dL (2.5-4.9)
[2018-08-23] MEDS ORDERED: DEXTROSE 5%-WATER 100 ML IVPB ONE (10:02)
[2018-08-23] MEDS ORDERED: PT OWN MED DRAWER 7, Y5N ONE ×4 (10:03→21:44)
[2018-08-23] MEDS: RANOLAZINE E.R. 500 MG TABLET (FP) PO SCH ×2 (10:04→22:02)
[2018-08-23] MEDS: ASPIRIN 81 MG CHEWABLE TABLETS PO SCH (10:04)
[2018-08-23] MEDS: OMEGA-3 ACID ETHYL ESTERS (FATTY-ACIDS) 1 GM CAPSULE (FP) PO SCH ×2 (10:04→22:00)
[2018-08-23] MEDS: amLODIPine BESYLATE 5 MG TABLET (FP) PO SCH (10:04)
[2018-08-23] MEDS: CEFTRIAXONE 2 GM in DEXTROSE 5%-WATER 100 ML IVPB SCH (10:04)
[2018-08-23] MEDS: LACTOBACILLUS ACIDOPHILUS 1 TABLET PO SCH (10:04)
[2018-08-23] MEDS: RANITIDINE HCL 150 MG TABLET (FP) PO SCH ×2 (10:04→21:59)
[2018-08-23] MEDS: CLOPIDOGREL BISULFATE 75 MG TABLET (FP) PO SCH (10:04)
[2018-08-23] MEDS: guaiFENesin/CODEINE 10 ML UNIT-DOSE CUPS PO PRN ×3 (10:04→21:55)
[2018-08-23] MEDS: CARVEDILOL 25 MG TABLET (FP) PO SCH ×2 (10:05→22:02)
[2018-08-23] MEDS: MUPIROCIN 2% TOPICAL OINTMENT 22 GM TUBE TP SCH (10:05)
--- NOTE | 2018-08-23 11:28 | PN ---
Progress Note (short form) - Note Progress Note: 57 y/o male with left foot 2nd digit cellulitis. Attempted to see patient but at this time was out of the room for bone scan. Will f/u with bone scan results later today and will f/u with patient tomorrow for evaluation of osteomyelitis.
[2018-08-23] MEDS ORDERED: POTASSIUM CHLORIDE TABS 20 MEQ TABLET.ER (FP) PO ONE (11:30)
--- NOTE | 2018-08-23 11:34 | PN ---
Teaching Attending Note Name of Resident: Char Vera ATTENDING PHYSICIAN STATEMENT I saw and evaluated the patient. I reviewed the resident's note and discussed the case with the resident. I agree with the resident's findings and plan as documented with exceptions below. SUBJECTIVE: Patient seen and examined. breathing improved, left leg burning. no abdominal or urinary symptoms. Denies any chest pain/pressure/arm or jaw pain or new concerns. OBJECTIVE: Vital Signs Period Temp Pulse Resp BP Sys/Gallo Pulse Ox Last 24 Hr 97.1 F-98.3 F 67-90 16-22 91-167/53-83 98-100 Intake & Output 08/20/18 08/21/18 08/22/18 08/23/18 23:59 23:59 23:59 23:59 Intake Total 1100 2060.7 1487.6 458 Output Total 2100 5550 5700 1500 Balance -1000 -3489.3 -4212.4 -1042 Weight 292 lb 286 lb 6.4 oz General: sitting in bed in no acute distress Neck: soft supple, habitus limiting JVD visualization CVS;S1S2 irregular Chest: improved basilar rales, improved air entry, no wheezing Abdomen;Soft, obese, NT Extremities: left foot edema almost resolved, left 2nd toe swelling improved, superficial ulcer with scab at the tip of left 2nd toe, no active disharge or foul smell, improved exam Home Medications Medication Instructions Recorded Ranolazine [Ranexa] 500 mg PO BID 07/13/13 Ranitidine [Zantac -] 150 mg PO BID 06/19/17 Clonidine Patch [Catapres Tts 0.3 mg TD WEEKLY 06/21/17 Patch -] Aspirin [ASA -] 81 mg PO DAILY 09/28/17 Nitroglycerin [Nitrostat] 0.4 mg SL PRN PRN 09/28/17 Torsemide 1 tab PO DAILY 09/29/17 Carvedilol [Coreg -] 25 mg PO BID #60 tablet 09/30/17 Atorvastatin Ca [Lipitor] 80 mg PO HS 06/01/18 Ergocalciferol (Vitamin D2) 50,000 unit PO WEEKLY 06/01/18 [Vitamin D2] Insulin Lispro [Humalog] 0 unit SQ ASDIR PRN 06/01/18 [place]-3 Fatty Acids [[place]alia-3] 1,000 mg PO BID 06/01/18 Sacubitril/Valsartan [Entresto 49 1 each PO BID 06/01/18 mg-51 mg Tablet] Clopidogrel Bisulfate [Plavix -] 75 mg PO DAILY 30 Days #0 tab 06/08/18 Active Medications Acetaminophen (Tylenol -) 650 mg PO Q4H PRN PRN Reason: FEVER Last Admin: 08/22/18 11:44 Dose: 650 mg Amlodipine Besylate (Norvasc -) 5 mg PO DAILY [facility] Last Admin: 08/23/18 10:04 Dose: 5 mg Aspirin (Asa -) 81 mg PO DAILY [facility] Last Admin: 08/23/18 10:04 Dose: 81 mg Atorvastatin Calcium (Lipitor -) 80 mg PO HS [facility] Last Admin: 08/22/18 21:00 Dose: 80 mg Carvedilol (Coreg -) 25 mg PO BID [facility] Last Admin: 08/23/18 10:05 Dose: 25 mg Chlorhexidine Gluconate (Hibiclens For Decolonization -) 1 applic TP HS [facility] Last Admin: 08/22/18 21:01 Dose: 1 applic Clopidogrel Bisulfate (Plavix -) 75 mg PO DAILY [facility] Last Admin: 08/23/18 10:04 Dose: 75 mg Fluticasone Propionate (Flonase -) 1 spray NS BID [facility] Last Admin: 08/23/18 11:23 Dose: Not Given Guaifenesin/Codeine Phosphate (Robitussin Ac -) 10 ml PO Q6H PRN PRN Reason: COUGH Last Admin: 08/23/18 10:04 Dose: 10 ml Heparin Sodium (Porcine) (Heparin -) 5,000 unit SQ TID [facility] Last Admin: 08/23/18 06:41 Dose: 5,000 unit Furosemide 100 mg/ Dextrose 100 mls @ 5 mls/hr IVPB TITR [facility]; Protocol Last Admin: 08/23/18 10:07 Dose: Not Given Dobutamine HCl 250,000 mcg/ (Sodium Chloride) 250 mls @ 19.86 mls/hr IV TITR [facility]; Protocol Last Admin: 08/23/18 08:00 Dose: 2.5 mcg/kg/min, 19.86 mls/hr Ceftriaxone Sodium 2 gm/ (Dextrose) 100 mls @ 200 mls/hr IVPB DAILY [facility]; Protocol Last Admin: 08/23/18 10:04 Dose: 200 mls/hr Insulin Aspart (Novolog Vial Sliding Scale -) 1 vial SQ HS [facility]; Protocol Last Admin: 08/22/18 21:58 Dose: 6 unit Insulin Aspart (Novolog Vial Sliding Scale -) 1 vial SQ TIDAC [facility]; Protocol Last Admin: 08/23/18 06:43 Dose: 12 units Insulin Detemir (Levemir Vial) 25 units SQ HS [facility] Last Admin: 08/22/18 21:55 Dose: 25 units Lactobacillus Acidophilus (Bacid -) 1 tab PO DAILY [facility] Last Admin: 08/23/18 10:04 Dose: 1 tab Magnesium Sulfate (Magnesium Sulfate) 2 gm IVPB ONCE ONE Stop: 08/23/18 11:46 Mupirocin (Bactroban 2% Ointment -) 1 applic TP DAILY [facility] Last Admin: 08/23/18 10:05 Dose: 1 applic [id number] Ethyl Esters (Lovaza -) 2 gm PO BID [facility] Last Admin: 08/23/18 10:04 Dose: 2 gm Ranitidine HCl (Zantac -) 150 mg PO BID [facility] Last Admin: 08/23/18 10:04 Dose: 150 mg Ranolazine (Ranexa -) 500 mg PO BID [facility] Last Admin: 08/23/18 10:04 Dose: 500 mg Sacubitril/Valsartan (Entresto 24 Mg-26 Mg Tablet) 1 tab PO BID [facility] Sodium Chloride ([place] Nasal [place] -) 2 spray NS TID PRN PRN Reason: NASAL CONGESTION Last Admin: 08/21/18 21:50 Dose: 2 spray Laboratory Results - last 24 hr 08/22/18 08/22/18 08/23/18 07:00 21:20 05:15 WBC 6.6 RBC 2.83 L Hgb 8.8 L Hct 24.5 L MCV 86.5 MCH 31.2 MCHC 36.0 H RDW 16.7 H Plt Count 246 D MPV 7.2 L Absolute Neuts (auto) 5.1 Neutrophils % 77.9 Lymphocytes % 9.1 Monocytes % 9.4 Eosinophils % 3.2 Basophils % 0.4 Nucleated RBC % 0 PTT (Actin FS) Sodium Potassium Chloride Carbon Dioxide Anion Gap BUN Creatinine Creat Clearance w eGFR Random Glucose Calcium Phosphorus Magnesium Total Bilirubin AST ALT Alkaline Phosphatase Total Protein Albumin Stool Occult Blood Negative Random Vancomycin 20.12 08/23/18 08/23/18 08/23/18 05:15 05:15 05:15 WBC 7.2 RBC 2.77 L Hgb 8.5 L Hct 23.7 L MCV 85.7 MCH 30.9 MCHC 36.0 H RDW 16.9 H Plt Count 283 MPV 7.2 L Absolute Neuts (auto) 5.5 Neutrophils % 76.5 Lymphocytes % 10.2 Monocytes % 9.3 Eosinophils % 3.2 Basophils % 0.8 Nucleated RBC % 0 PTT (Actin FS) 29.8 Sodium 134 L Potassium 4.2 Chloride 98 Carbon Dioxide 27 Anion Gap 9 BUN 87 H Creatinine 4.1 H Creat Clearance w eGFR 15.17 Random Glucose 228 H Calcium 8.3 L Phosphorus 5.6 H Magnesium 1.9 Total Bilirubin 0.5 AST 21 ALT 39 Alkaline Phosphatase 84 Total Protein 6.6 Albumin 2.2 L Stool Occult Blood Random Vancomycin Microbiology 08/17/18 14:10 Blood - Peripheral Venous Blood Culture - Final NO GROWTH AFTER 5 DAYS INCUBATION 08/17/18 14:25 Blood - Peripheral Venous Blood Culture - Final NO GROWTH AFTER 5 DAYS INCUBATION 08/22/18 07:00 Stool Clostridium difficile Antigen (YEFRI) - Final 08/22/18 07:00 Stool Clostridium difficile Toxin Assay - Final 08/17/18 16:13 Urine - Urine Clean Catch Urine Culture - Final NO GROWTH OBTAINED ASSESSMENT AND PLAN: 57 yom with PMHx of ASHD, MT, S/P CABG, PCI/stent, ICD implant(2007), HTN, hypercholesterolemia, IDDM on insulin pump, CKD stage IV, gout and 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, abnormal stress test in 06/2017, Left ureteral stone with hydronenphrosis s/p recent stenting, comes with sepsis after left toenail removal and noted with elevated troponin -Septic shock, suspect from left toe infection, cellulitis, r/o osteomyelitis -Elevated troponin, NSTEMI vs Demand type II in the setting of above -Acute systolic heart failure exacerbation in the setting fluid resuscitation and MT -Acute hypoxemic respiratory failure -NSVT/PVCs/Ventricular trigeminy -Thrombocytopenia, likely from sepsis -CAD s/p CABG, ICD -HTN -HLD -IDDM on insulin pump -CKD stage IV -Epistaxis Plan: Breathing improved. continues to have > 5 liters urine output. volume status improved. BP high, discuss with cardiology if ok to dc dobutamine and transition to Lasix IV BID. Nephrology input appreciated. Strict I/Os and daily weights. ID input noted. s/p 4 days of meropenem, change to Ceftriaxone day 2 (total abx day 6). Vanco renal dosing, levels noted. Foot exam improved. For bone scan today, follow up. Cultures neg so far Podiatry input noted, surgical plan pending bone scan. s/p Heparin drip, d/charles after nose bleed, 2D echo noted. Needs cardiac risk stratification when improved, however, renal function limiting factor. Off insulin pump for now. ISS, diabetic diet. Endocrine input noted. Increase levemir to 30 units. ASA/plavix/ranexa/statin/clonidine. less PVC/VT after coreg resumption. Plan discussed with patient, all questions answered. Care co-ordinated with ICU team Agree with transfer to telemetry. Total critical care time spent 36 min.
[2018-08-23] MEDS ORDERED: INSULIN (LEVEMIR) 100 UNITS/ML UNITS SQ SCH (11:44)
[2018-08-23] MEDS ORDERED: MAGNESIUM SULF 50% (8.12 MEQ/2 ML-1 GM VIAL) IVPB ONE (11:45)
--- NOTE | 2018-08-23 11:54 | PN ---
Teaching Attending Note Name of Resident: Ramesh Rm ATTENDING PHYSICIAN STATEMENT I saw and evaluated the patient. I reviewed the resident's note and discussed the case with the resident. I agree with the resident's findings and plan as documented. SUBJECTIVE: Pt seen and examined in the ICU. States breathing is improving. Denies chest pain. Remains on dobutamine and lasix gtts, diuresing well. OBJECTIVE: Vital Signs Period Temp Pulse Resp BP Sys/Gallo Pulse Ox Last 24 Hr 97.1 F-98.3 F 67-90 16-22 91-167/53-83 98-100 Intake & Output 08/20/18 08/21/18 08/22/18 08/23/18 23:59 23:59 23:59 23:59 Intake Total 1100 2060.7 1487.6 458 Output Total 2100 5550 5700 1500 Balance -1000 -3489.3 -4212.4 -1042 Weight 132.449 kg 129.909 kg Gen: NAD at rest Heart: RRR Lung: basilar rales Abd: soft, nontender Ext: no edema CBC, BMP 08/23/18 05:15 08/23/18 05:15 Active Medications Acetaminophen (Tylenol -) 650 mg PO Q4H PRN PRN Reason: FEVER Last Admin: 08/22/18 11:44 Dose: 650 mg Amlodipine Besylate (Norvasc -) 5 mg PO DAILY [facility] Last Admin: 08/23/18 10:04 Dose: 5 mg Aspirin (Asa -) 81 mg PO DAILY [facility] Last Admin: 08/23/18 10:04 Dose: 81 mg Atorvastatin Calcium (Lipitor -) 80 mg PO [facility] Last Admin: 08/22/18 21:00 Dose: 80 mg Carvedilol (Coreg -) 25 mg PO BID [facility] Last Admin: 08/23/18 10:05 Dose: 25 mg Chlorhexidine Gluconate (Hibiclens For Decolonization -) 1 applic TP [facility] Last Admin: 08/22/18 21:01 Dose: 1 applic Clopidogrel Bisulfate (Plavix -) 75 mg PO DAILY [facility] Last Admin: 08/23/18 10:04 Dose: 75 mg Fluticasone Propionate (Flonase -) 1 spray NS BID [facility] Last Admin: 08/23/18 11:23 Dose: Not Given Guaifenesin/Codeine Phosphate (Robitussin Ac -) 10 ml PO Q6H PRN PRN Reason: COUGH Last Admin: 08/23/18 10:04 Dose: 10 ml Heparin Sodium (Porcine) (Heparin -) 5,000 unit SQ TID [facility] Last Admin: 08/23/18 06:41 Dose: 5,000 unit Furosemide 100 mg/ Dextrose 100 mls @ 5 mls/hr IVPB TITR [facility]; Protocol Last Admin: 08/23/18 10:07 Dose: Not Given Dobutamine HCl 250,000 mcg/ (Sodium Chloride) 250 mls @ 19.86 mls/hr IV TITR [facility]; Protocol Last Admin: 08/23/18 08:00 Dose: 2.5 mcg/kg/min, 19.86 mls/hr Ceftriaxone Sodium 2 gm/ (Dextrose) 100 mls @ 200 mls/hr IVPB DAILY [facility]; Protocol Last Admin: 08/23/18 10:04 Dose: 200 mls/hr Insulin Aspart (Novolog Vial Sliding Scale -) 1 vial SQ HS [facility]; Protocol Last Admin: 08/22/18 21:58 Dose: 6 unit Insulin Aspart (Novolog Vial Sliding Scale -) 1 vial SQ TIDAC [facility]; Protocol Last Admin: 08/23/18 06:43 Dose: 12 units Insulin Detemir (Levemir Vial) 30 units SQ HS [facility] Lactobacillus Acidophilus (Bacid -) 1 tab PO DAILY [facility] Last Admin: 08/23/18 10:04 Dose: 1 tab Mupirocin (Bactroban 2% Ointment -) 1 applic TP DAILY [facility] Last Admin: 08/23/18 10:05 Dose: 1 applic [id number] Ethyl Esters (Lovaza -) 2 gm PO BID [facility] Last Admin: 08/23/18 10:04 Dose: 2 gm Ranitidine HCl (Zantac -) 150 mg PO BID [facility] Last Admin: 08/23/18 10:04 Dose: 150 mg Ranolazine (Ranexa -) 500 mg PO BID [facility] Last Admin: 08/23/18 10:04 Dose: 500 mg Sacubitril/Valsartan (Entresto 24 Mg-26 Mg Tablet) 1 tab PO BID [facility] Sodium Chloride ([place] Nasal [place] -) 2 spray NS TID PRN PRN Reason: NASAL CONGESTION Last Admin: 08/21/18 21:50 Dose: 2 spray ASSESSMENT AND PLAN: Acute on Chronic Systolic Heart Failure Acute NSTEMI CAD s/p CABG Acute on Chronic Renal Failure HTN DM Cellulitis - continue antibiotics - dobutamine/lasix per cardiology - daily weights - keep net negative - resume entresto - ASA, plavix - beta sandee, statin - O2 to keep SpO2 >90% - can monitor on telemetry
[2018-08-23] MEDS: SACUBITRIL/VALSARTAN 24 MG-26 MG TABLET PO SCH ×2 (12:12→21:59)
[2018-08-23] MEDS ORDERED: MAGNESIUM SULF 50% (8.12 MEQ/2 ML-1 GM VIAL) ONE (12:16)
--- NOTE | 2018-08-23 12:17 | PN ---
Progress Note, Physician History of Present Illness: OOB to chair on NC, afebrile, no further NSVT back on carvedilol. - Current Medication List Current Medications: Active Medications Acetaminophen (Tylenol -) 650 mg PO Q4H PRN PRN Reason: FEVER Last Admin: 08/22/18 11:44 Dose: 650 mg Amlodipine Besylate (Norvasc -) 5 mg PO DAILY [facility] Last Admin: 08/23/18 10:04 Dose: 5 mg Aspirin (Asa -) 81 mg PO DAILY [facility] Last Admin: 08/23/18 10:04 Dose: 81 mg Atorvastatin Calcium (Lipitor -) 80 mg PO HS [facility] Last Admin: 08/22/18 21:00 Dose: 80 mg Carvedilol (Coreg -) 25 mg PO BID [facility] Last Admin: 08/23/18 10:05 Dose: 25 mg Chlorhexidine Gluconate (Hibiclens For Decolonization -) 1 applic TP [facility] Last Admin: 08/22/18 21:01 Dose: 1 applic Clopidogrel Bisulfate (Plavix -) 75 mg PO DAILY [facility] Last Admin: 08/23/18 10:04 Dose: 75 mg Fluticasone Propionate (Flonase -) 1 spray NS BID [facility] Last Admin: 08/23/18 11:23 Dose: Not Given Guaifenesin/Codeine Phosphate (Robitussin Ac -) 10 ml PO Q6H PRN PRN Reason: COUGH Last Admin: 08/23/18 10:04 Dose: 10 ml Heparin Sodium (Porcine) (Heparin -) 5,000 unit SQ TID [facility] Last Admin: 08/23/18 06:41 Dose: 5,000 unit Furosemide 100 mg/ Dextrose 100 mls @ 5 mls/hr IVPB TITR [facility]; Protocol Last Admin: 08/23/18 10:07 Dose: Not Given Dobutamine HCl 250,000 mcg/ (Sodium Chloride) 250 mls @ 19.86 mls/hr IV TITR [facility]; Protocol Last Admin: 08/23/18 08:00 Dose: 2.5 mcg/kg/min, 19.86 mls/hr Ceftriaxone Sodium 2 gm/ (Dextrose) 100 mls @ 200 mls/hr IVPB DAILY [facility]; Protocol Last Admin: 08/23/18 10:04 Dose: 200 mls/hr Insulin Aspart (Novolog Vial Sliding Scale -) 1 vial SQ [facility]; Protocol Last Admin: 08/22/18 21:58 Dose: 6 unit Insulin Aspart (Novolog Vial Sliding Scale -) 1 vial SQ TIDAC [facility]; Protocol Last Admin: 08/23/18 06:43 Dose: 12 units Insulin Detemir (Levemir Vial) 30 units SQ HS [facility] Lactobacillus Acidophilus (Bacid -) 1 tab PO DAILY [facility] Last Admin: 08/23/18 10:04 Dose: 1 tab Mupirocin (Bactroban 2% Ointment -) 1 applic TP DAILY [facility] Last Admin: 08/23/18 10:05 Dose: 1 applic [id number] Ethyl Esters (Lovaza -) 2 gm PO BID [facility] Last Admin: 08/23/18 10:04 Dose: 2 gm Ranitidine HCl (Zantac -) 150 mg PO BID [facility] Last Admin: 08/23/18 10:04 Dose: 150 mg Ranolazine (Ranexa -) 500 mg PO BID [facility] Last Admin: 08/23/18 10:04 Dose: 500 mg Sacubitril/Valsartan (Entresto 24 Mg-26 Mg Tablet) 1 tab PO BID [facility] Sodium Chloride ([place] Nasal [place] -) 2 spray NS TID PRN PRN Reason: NASAL CONGESTION Last Admin: 08/21/18 21:50 Dose: 2 spray - Objective Vital Signs: Vital Signs Temperature 98.3 F 08/23/18 10:00 Pulse Rate 84 08/23/18 10:00 Respiratory Rate 18 08/23/18 10:00 Blood Pressure 167/77 08/23/18 10:00 O2 Sat by Pulse Oximetry (%) 98 08/23/18 09:00 Constitutional: Yes: No Distress, Calm Neck: Yes: Supple Cardiovascular: Yes: Regular Rate and Rhythm Respiratory: Yes: Regular, Diminished, On Nasal O2 Gastrointestinal: Yes: Normal Bowel Sounds, Soft, Abdomen, Obese Edema: No Labs: CBC, BMP 08/23/18 05:15 08/23/18 05:15 INR, PTT INR 1.23 (0.83-1.09) H 08/18/18 08:05 - ....Imaging EKG: Report Reviewed (Tele: NSR) Problem List - Problems (1) NSTEMI (non-ST elevated myocardial infarction) Code(s): I21.4 - NON-ST ELEVATION (NSTEMI) MYOCARDIAL INFARCTION (2) Sepsis Code(s): A41.9 - SEPSIS, UNSPECIFIED ORGANISM Qualifiers: Sepsis type: sepsis due to unspecified organism Qualified Code(s): A41.9 - Sepsis, unspecified organism (3) Acute on chronic kidney failure Code(s): N17.9 - ACUTE KIDNEY FAILURE, UNSPECIFIED; N18.9 - CHRONIC KIDNEY DISEASE, UNSPECIFIED Qualifiers: Acute renal failure type: unspecified Chronic kidney disease stage: unspecified stage Qualified Code(s): N17.9 - Acute kidney failure, unspecified ; N18.9 - Chronic kidney disease, unspecified (4) Acute on chronic systolic (congestive) heart failure Code(s): I50.23 - ACUTE ON CHRONIC SYSTOLIC (CONGESTIVE) HEART FAILURE (5) Dyspnea due to congestive heart failure Code(s): I50.9 - HEART FAILURE, UNSPECIFIED (6) Elevated troponin Code(s): R79.89 - OTHER SPECIFIED ABNORMAL FINDINGS OF BLOOD CHEMISTRY (7) HLD (hyperlipidemia) Code(s): E78.5 - HYPERLIPIDEMIA, UNSPECIFIED Qualifiers: Hyperlipidemia type: pure hypercholesterolemia Qualified Code(s): E78.00 - Pure hypercholesterolemia, unspecified (8) HTN (hypertension) Code(s): I10 - ESSENTIAL (PRIMARY) HYPERTENSION Qualifiers: Hypertension type: essential hypertension Qualified Code(s): I10 - Essential (primary) hypertension (9) History of coronary artery stent placement Code(s): Z95.5 - PRESENCE OF CORONARY ANGIOPLASTY IMPLANT AND GRAFT (10) Hx of CABG Code(s): Z95.1 - PRESENCE OF AORTOCORONARY BYPASS GRAFT (11) ICD (implantable cardioverter-defibrillator) in place Code(s): Z95.810 - PRESENCE OF AUTOMATIC (IMPLANTABLE) CARDIAC DEFIBRILLATOR (12) Systolic heart failure Code(s): I50.20 - UNSPECIFIED SYSTOLIC (CONGESTIVE) HEART FAILURE Qualifiers: Heart failure chronicity: acute on chronic Qualified Code(s): I50.23 - Acute on chronic systolic (congestive) heart failure (13) Sleep apnea Code(s): G47.30 - SLEEP APNEA, UNSPECIFIED Qualifiers: Sleep apnea type: obstructive Qualified Code(s): G47.33 - Obstructive sleep apnea (adult) (pediatric) Assessment/Plan 08/18/2018 Echo: Poor windows 1. Acute on chronic class II-III NYHA classification LV failure related to LV systolic dysfunction, improving/resolving 2. CAD post [place]/CABG, PCI/stent, demand ischemic injury history of an abnormal MPI study angina pectoris, plan for conservative medical management 3. Aortic stenosis, mild 4. HTN 5. IDDM 6. Hypercholesterolemia 7. Post prophylactic ICD implant, history of NSVT 8. Acute on CKD 9. Anemia post transfusion 10. Gout 11. Obstructive sleep apnea 12. Left leg cellulitis PLAN: 1. Decrease Lasix drip @ 5 with close monitoring renal function and electrolytes 2. D/c Dobutamine this AM to assist with diuresis 3. Continue Coreg 25 bid 4. Entresto 26/26 bid as renal function at baseline with close monitoring renal function and electrolytes 5. Continue Ranexa 500 bid 6. Continue Norvasc 5 qd 7. Defer Clonidine re-initiation 8. Continue Lipitor 80 qhs 9. Continue Plavix 75 qd and ASA 81 qd with caution in view of the above noted anemia, transfuse as needed to maintain Hg equal or > 8.0 10. Complete antibiotic course as per the primary team 11. As outlined in the prior note plan to pursue medical management and therapy optimization and deferring any invasive strategy in view of the above noted CKD with acute exacerbation 12. DVT prophylaxis
--- NOTE | 2018-08-23 12:24 | PN ---
Progress Note (short form) - Note Progress Note: Renal follow up for HECTOR on CKD Vital Signs Temperature 98.3 F 08/23/18 10:00 Pulse Rate 76 08/23/18 12:00 Respiratory Rate 18 08/23/18 12:00 Blood Pressure 139/82 08/23/18 12:00 O2 Sat by Pulse Oximetry (%) 98 08/23/18 09:00 Intake & Output 08/20/18 08/21/18 08/22/18 08/23/18 23:59 23:59 23:59 23:59 Intake Total 1100 2060.7 1487.6 458 Output Total 2100 5550 5700 1500 Balance -1000 -3489.3 -4212.4 -1042 Weight 132.449 kg 129.909 kg NAD awake and alert RRR CTA Trace LE edema CBC, BMP 08/23/18 05:15 08/23/18 05:15 Current Medications Acetaminophen (Tylenol -) 650 mg PO Q4H PRN PRN Reason: FEVER Last Admin: 08/22/18 11:44 Dose: 650 mg Amlodipine Besylate (Norvasc -) 5 mg PO DAILY [facility] Last Admin: 08/23/18 10:04 Dose: 5 mg Aspirin (Asa -) 81 mg PO DAILY [facility] Last Admin: 08/23/18 10:04 Dose: 81 mg Atorvastatin Calcium (Lipitor -) 80 mg PO HS [facility] Last Admin: 08/22/18 21:00 Dose: 80 mg Carvedilol (Coreg -) 25 mg PO BID [facility] Last Admin: 08/23/18 10:05 Dose: 25 mg Chlorhexidine Gluconate (Hibiclens For Decolonization -) 1 applic TP HS [facility] Last Admin: 08/22/18 21:01 Dose: 1 applic Clopidogrel Bisulfate (Plavix -) 75 mg PO DAILY [facility] Last Admin: 08/23/18 10:04 Dose: 75 mg Fluticasone Propionate (Flonase -) 1 spray NS BID [facility] Last Admin: 08/23/18 11:23 Dose: Not Given Guaifenesin/Codeine Phosphate (Robitussin Ac -) 10 ml PO Q6H PRN PRN Reason: COUGH Last Admin: 08/23/18 10:04 Dose: 10 ml Heparin Sodium (Porcine) (Heparin -) 5,000 unit SQ TID [facility] Last Admin: 08/23/18 06:41 Dose: 5,000 unit Furosemide 100 mg/ Dextrose 100 mls @ 5 mls/hr IVPB TITR [facility]; Protocol Last Admin: 08/23/18 10:07 Dose: Not Given Dobutamine HCl 250,000 mcg/ (Sodium Chloride) 250 mls @ 19.86 mls/hr IV TITR [facility]; Protocol Last Admin: 08/23/18 08:00 Dose: 2.5 mcg/kg/min, 19.86 mls/hr Ceftriaxone Sodium 2 gm/ (Dextrose) 100 mls @ 200 mls/hr IVPB DAILY [facility]; Protocol Last Admin: 08/23/18 10:04 Dose: 200 mls/hr Insulin Aspart (Novolog Vial Sliding Scale -) 1 vial SQ HS [facility]; Protocol Last Admin: 08/22/18 21:58 Dose: 6 unit Insulin Aspart (Novolog Vial Sliding Scale -) 1 vial SQ TIDAC [facility]; Protocol Last Admin: 08/23/18 06:43 Dose: 12 units Insulin Detemir (Levemir Vial) 30 units SQ HS [facility] Lactobacillus Acidophilus (Bacid -) 1 tab PO DAILY [facility] Last Admin: 08/23/18 10:04 Dose: 1 tab Mupirocin (Bactroban 2% Ointment -) 1 applic TP DAILY [facility] Last Admin: 08/23/18 10:05 Dose: 1 applic [id number]-[id number] Ethyl Esters (Lovaza -) 2 gm PO BID [facility] Last Admin: 08/23/18 10:04 Dose: 2 gm Ranitidine HCl (Zantac -) 150 mg PO BID [facility] Last Admin: 08/23/18 10:04 Dose: 150 mg Ranolazine (Ranexa -) 500 mg PO BID [facility] Last Admin: 08/23/18 10:04 Dose: 500 mg Sacubitril/Valsartan (Entresto 24 Mg-26 Mg Tablet) 1 tab PO BID [facility] Sodium Chloride ([place] Nasal [place] -) 2 spray NS TID PRN PRN Reason: NASAL CONGESTION Last Admin: 08/21/18 21:50 Dose: 2 spray 57 year old gentleman with hx of 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 #HECTOR on CKD secondary to renal hypoprofuison in setting of sepsis vs. obstruction #Sepsis syndrome from soft tissue infection r/o bacteremia #NSTEMI vs. Demand ischemia #Acute on chronic anemia #Hx of Hypertension #Lactic acidosis now resolved #Hypocalcemia Renal function stable, pt non-oliguric on Lasix gtt and dobutamine gtt started on Entresto per cardiology, would monitor BUN/Cr closely as pt has low eGFR at baseline and addition of ARB could further reduce eGFR Trend renal function and electrolytes closely continue Abx as per ICU supportive care Jose Manuel Pendleton DO
--- NOTE | 2018-08-23 13:09 | PN ---
Physical Exam: SUBJECTIVE: Patient seen and examined at bedside. Remains on lasix and dobutamine gtt. Breathing is improved. Feels better overall. Denies CP, VELEZ, abdominal pain, nausea or vomiting. OBJECTIVE: Vital Signs Period Temp Pulse Resp BP Sys/Gallo Pulse Ox Last 24 Hr 97.1 F-98.3 F 67-90 16-22 91-167/61-83 98-100 GENERAL: A&Ox3, NAD HEAD: NC/AT EYES: PERRLA, EOMI EARS, NOSE, THROAT: MMM NECK: Normal range of motion, supple without lymphadenopathy LUNGS: scant bibasilar crackles, improved aeration and effort, less labored breathing HEART: Paced rhythm, no m/r/g ABDOMEN: +bs, soft, non-tender EXTREMITIES: 2+ pulses upper, 1+ pulses lower, warm, well-perfused. Distal LLE swollen. Erythematous ulcer of left second toe, receding from demarcation line. Warmth throughout left calf relative to right, left calf significantly tender w / burning sensation. NEUROLOGICAL: fusing machine feeder, motor, sensory systems w/o focal deficit PSYCHIATRIC: Cooperative. Good eye contact. Appropriate mood and affect. SKIN: Warm, dry, normal turgor Laboratory Results - last 24 hr 08/22/18 08/22/18 08/23/18 07:00 21:20 05:15 WBC 6.6 RBC 2.83 L Hgb 8.8 L Hct 24.5 L MCV 86.5 MCH 31.2 MCHC 36.0 H RDW 16.7 H Plt Count 246 D MPV 7.2 L Absolute Neuts (auto) 5.1 Neutrophils % 77.9 Lymphocytes % 9.1 Monocytes % 9.4 Eosinophils % 3.2 Basophils % 0.4 Nucleated RBC % 0 PTT (Actin FS) Sodium Potassium Chloride Carbon Dioxide Anion Gap BUN Creatinine Creat Clearance w eGFR Random Glucose Calcium Phosphorus Magnesium Total Bilirubin AST ALT Alkaline Phosphatase Total Protein Albumin Stool Occult Blood Negative Random Vancomycin 20.12 08/23/18 08/23/18 08/23/18 05:15 05:15 05:15 WBC 7.2 RBC 2.77 L Hgb 8.5 L Hct 23.7 L MCV 85.7 MCH 30.9 MCHC 36.0 H RDW 16.9 H Plt Count 283 MPV 7.2 L Absolute Neuts (auto) 5.5 Neutrophils % 76.5 Lymphocytes % 10.2 Monocytes % 9.3 Eosinophils % 3.2 Basophils % 0.8 Nucleated RBC % 0 PTT (Actin FS) 29.8 Sodium 134 L Potassium 4.2 Chloride 98 Carbon Dioxide 27 Anion Gap 9 BUN 87 H Creatinine 4.1 H Creat Clearance w eGFR 15.17 Random Glucose 228 H Calcium 8.3 L Phosphorus 5.6 H Magnesium 1.9 Total Bilirubin 0.5 AST 21 ALT 39 Alkaline Phosphatase 84 Total Protein 6.6 Albumin 2.2 L Stool Occult Blood Random Vancomycin Active Medications Generic Name Dose Route Start Last Admin Trade Name Freq PRN Reason Stop Dose Admin Acetaminophen 650 mg 08/17/18 18:08 08/22/18 11:44 Tylenol - PO 650 mg Q4H PRN Administration FEVER Amlodipine Besylate 5 mg 08/22/18 10:00 08/23/18 10:04 Norvasc - PO 5 mg DAILY CRIS Administration Aspirin 81 mg 08/18/18 10:00 08/23/18 10:04 Asa - PO 81 mg DAILY CRIS Administration Atorvastatin Calcium 80 mg 08/17/18 22:00 08/22/18 21:00 Lipitor - PO 80 mg HS CRIS Administration Carvedilol 25 mg 08/18/18 22:00 08/23/18 10:05 Coreg - PO 25 mg BID CRIS Administration Chlorhexidine Gluconate 1 applic 08/17/18 22:00 08/22/18 21:01 Hibiclens For Decolonization - TP 1 applic HS CRIS Administration Clopidogrel Bisulfate 75 mg 08/18/18 10:00 08/23/18 10:04 Plavix - PO 75 mg DAILY CRIS Administration Fluticasone Propionate 1 spray 08/20/18 11:15 08/23/18 11:23 Flonase - NS Not Given BID CRIS Guaifenesin/Codeine Phosphate 10 ml 08/21/18 23:20 08/23/18 10:04 Robitussin Ac - PO 10 ml Q6H PRN Administration COUGH Heparin Sodium (Porcine) 5,000 unit 08/19/18 14:00 08/23/18 06:41 Heparin - SQ 5,000 unit TID CRIS Administration Furosemide 100 mg/ Dextrose 100 mls @ 5 mls/hr 08/21/18 09:45 08/23/18 12:37 IVPB 5 mg/hr TITR CRIS 5 mls/hr Administration Protocol 5 MG/HR Dobutamine HCl 250,000 mcg/ 250 mls @ 19.86 mls/hr 08/21/18 09:45 08/23/18 12 :37 Sodium Chloride IV 0 mcg/kg/min TITR CRIS 0 mls/hr Titration Protocol 2.5 MCG/KG/MIN Ceftriaxone Sodium 2 gm/ 100 mls @ 200 mls/hr 08/22/18 11:45 08/23/18 10:04 Dextrose IVPB 200 mls/hr DAILY CRIS Administration Protocol Insulin Aspart 1 vial 08/20/18 22:00 08/22/18 21:58 Novolog Vial Sliding Scale - SQ 6 unit HS CRIS Administration Protocol Insulin Aspart 1 vial 08/22/18 13:02 08/23/18 12:25 Novolog Vial Sliding Scale - SQ 12 units TIDAC CRIS Administration Protocol Insulin Detemir 30 units 08/23/18 11:44 Levemir Vial SQ HS CRIS Lactobacillus Acidophilus 1 tab 08/19/18 10:00 08/23/18 10:04 Bacid - PO 1 tab DAILY CRIS Administration Mupirocin 1 applic 08/20/18 10:00 08/23/18 10:05 Bactroban 2% Ointment - TP 1 applic DAILY CRIS Administration Ktbug-1-Vvyn Ethyl Esters 2 gm 08/17/18 22:00 08/23/18 10:04 Lovaza - PO 2 gm BID CRIS Administration Ranitidine HCl 150 mg 08/17/18 22:00 08/23/18 10:04 Zantac - PO 150 mg BID CRIS Administration Ranolazine 500 mg 08/17/18 22:00 08/23/18 10:04 Ranexa - PO 500 mg BID CRIS Administration Sacubitril/Valsartan 1 tab 08/23/18 10:00 08/23/18 12:12 Entresto 24 Mg-26 Mg Tablet PO 1 tab BID CRIS Administration Sodium Chloride 2 spray 08/20/18 11:06 08/21/18 21:50 [place] Nasal [place] - NS 2 spray TID PRN Administration NASAL CONGESTION ASSESSMENT/PLAN: 57 y/o M w/ PMHx IDDM (on insulin pump), HTN, HLD, CAD s/p CABG and s/p AICD, CHF, Aortic stenosis, CKD, p/w fever, rigors, malaise x 1 day, admitted to ICU for NSTEMI and sepsis. #CV -Dr. Mullen following -troponins downtrended, completed heparin gtt, now on prophylactic heparin subq -congestion on CXR shows improvement -Continue Lasix gtt + dobutamine gtt per cardiology -repeat BMP, Mg, Phos this PM -patient agrees to central line placement under ultrasound guidance if necessary for pressure support -per cardiology, ASA/Plavix, Lipitor, Lovaza, Ranexa, coreg, norvasc -restarted on low-dose entresto w/ clearance by nephrology, close f/u of electrolytes and creatinine -maintain K > 4.5, Mg > 2 #ID -ID consulted and case discussed -avoid nephrotoxic ABx -ABx switched to ceftriaxone as per ID -wound care and in-house podiatry consulted -no surgical intervention at this time -wound care and podiatry recommend MRI, however cardiac hardware precludes MR study -bone scan pending today -08/20/18 podiatry performed bedside I&D, "minimal serous drainage noted from distal aspect of the 2nd digit" #renal/urology -nephrology following -per nephrology, "Urine Sodium low consistent with volume depletion with preserved tubular function" -Cr above CKD baseline -fluids held d/t pulm congestion -IV Lasix d/t pulm congestion -avoid nephrotoxic agents -cleared for low-dose entresto, close f/u of electrolytes and creatinine -joiner in place #pulmonary -NC titrate to >95% O2 -flonase/ocean NS #endocrinology -endocrinology following -off insulin pump -tight BGM and SSI + levemir per endocrinology #FEN -no IVF -monitor and correct electrolytes -diabetic diet #PPx -DVT: heparin subq -GI: Zantac #code -full #dispo -transfer to telemetry Visit type - Emergency Visit Emergency Visit: No - New Patient This patient is new to me today: No - Critical Care Critical Care patient: Yes Total Critical Care Time (in minutes): 40 Critical Care Statement: The care of this patient involved high complexity decision making to prevent further life threatening deterioration of the patient 's condition and/or to evaluate & treat vital organ system(s) failure or risk of failure.
[2018-08-23] MEDS: GABAPENTIN 300 MG CAPSULE (FP) PO SCH ×2 (13:35→22:02)
--- NOTE | 2018-08-23 13:37 | PN ---
Progress Note (short form) - Note Progress Note: Feels better No new complaints Vital Signs Period Temp Pulse Resp BP Sys/Gallo Pulse Ox Last 24 Hr 97.1 F-98.3 F 67-90 16-22 91-167/64-83 98-100 PE: AOx3 Neck: Supple, HEENT: EOMI Lungs: cTA CVS: S1S2 Abd: Benign EXt: decreased erythema left 2nd toe Neuro: No focal deficit CMP Sodium 134 mmol/L (136-145) L 08/23/18 05:15 Potassium 4.2 mmol/L (3.5-5.1) 08/23/18 05:15 Chloride 98 mmol/L (98-107) 08/23/18 05:15 Carbon Dioxide 27 mmol/L (21-32) 08/23/18 05:15 Anion Gap 9 MMOL/L (8-16) 08/23/18 05:15 BUN 87 mg/dL (7-18) H 08/23/18 05:15 Creatinine 4.1 mg/dL (0.55-1.3) H 08/23/18 05:15 Creat Clearance w eGFR 15.17 (>60) 08/23/18 05:15 POC Glucometer 302.46914 UNITS (80-120) 08/20/18 12:59 Random Glucose 228 mg/dL (74-106) H 08/23/18 05:15 Hemoglobin A1c % 6.0 % (4.2-6.3) 08/19/18 05:15 Lactic Acid 1.1 mmol/L (0.4-2.0) 08/17/18 20:20 Calcium 8.3 mg/dL (8.5-10.1) L 08/23/18 05:15 Phosphorus 5.6 mg/dL (2.5-4.9) H 08/23/18 05:15 Magnesium 1.9 mg/dL (1.8-2.4) 08/23/18 05:15 Total Bilirubin 0.5 mg/dL (0.2-1) 08/23/18 05:15 AST 21 U/L (15-37) 08/23/18 05:15 ALT 39 U/L (13-61) 08/23/18 05:15 Alkaline Phosphatase 84 U/L (45-117) 08/23/18 05:15 Creatine Kinase 402 IU/L (26-308) H 08/19/18 05:15 Creatine Kinase Index 2.8 % (0.0-5.0) 08/19/18 05:15 CK-MB (CK-2) 11.6 ng/mL (0.5-3.6) H 08/19/18 05:15 Troponin I 19.10 ng/ml (0.00-0.05) H* 08/19/18 05:15 B-Natriuretic Peptide 78007.6 pg/ml (5-125) H 08/20/18 05:30 Total Protein 6.6 g/dl (6.4-8.2) 08/23/18 05:15 Albumin 2.2 g/dl (3.4-5.0) L 08/23/18 05:15 Current Medications Generic Name Dose Route Start Last Admin Trade Name Freq PRN Reason Stop Dose Admin Acetaminophen 650 mg 08/17/18 18:08 08/22/18 11:44 Tylenol - PO 650 mg Q4H PRN Administration FEVER Amlodipine Besylate 5 mg 08/22/18 10:00 08/23/18 10:04 Norvasc - PO 5 mg DAILY CRIS Administration Aspirin 81 mg 08/18/18 10:00 08/23/18 10:04 Asa - PO 81 mg DAILY CRIS Administration Atorvastatin Calcium 80 mg 08/17/18 22:00 08/22/18 21:00 Lipitor - PO 80 mg HS CRIS Administration Carvedilol 25 mg 08/18/18 22:00 08/23/18 10:05 Coreg - PO 25 mg BID CRIS Administration Chlorhexidine Gluconate 1 applic 08/17/18 22:00 08/22/18 21:01 Hibiclens For Decolonization - TP 1 applic HS CRIS Administration Clopidogrel Bisulfate 75 mg 08/18/18 10:00 08/23/18 10:04 Plavix - PO 75 mg DAILY CRIS Administration Fluticasone Propionate 1 spray 08/20/18 11:15 08/23/18 11:23 Flonase - NS Not Given BID CRIS Gabapentin 300 mg 08/23/18 14:00 Neurontin - PO TID CRIS Guaifenesin/Codeine Phosphate 10 ml 08/21/18 23:20 08/23/18 10:04 Robitussin Ac - PO 10 ml Q6H PRN Administration COUGH Heparin Sodium (Porcine) 5,000 unit 08/19/18 14:00 08/23/18 06:41 Heparin - SQ 5,000 unit TID CRIS Administration Furosemide 100 mg/ Dextrose 100 mls @ 5 mls/hr 08/21/18 09:45 08/23/18 12:37 IVPB 5 mg/hr TITR CRIS 5 mls/hr Administration Protocol 5 MG/HR Dobutamine HCl 250,000 mcg/ 250 mls @ 19.86 mls/hr 08/21/18 09:45 08/23/18 12 :37 Sodium Chloride IV 0 mcg/kg/min TITR CRIS 0 mls/hr Titration Protocol 2.5 MCG/KG/MIN Ceftriaxone Sodium 2 gm/ 100 mls @ 200 mls/hr 08/22/18 11:45 08/23/18 10:04 Dextrose IVPB 200 mls/hr DAILY CRIS Administration Protocol Insulin Aspart 1 vial 08/20/18 22:00 08/22/18 21:58 Novolog Vial Sliding Scale - SQ 6 unit HS CRIS Administration Protocol Insulin Aspart 1 vial 08/22/18 13:02 08/23/18 12:25 Novolog Vial Sliding Scale - SQ 12 units TIDAC CRIS Administration Protocol Insulin Detemir 30 units 08/23/18 11:44 Levemir Vial SQ HS [facility] Lactobacillus Acidophilus 1 tab 08/19/18 10:00 08/23/18 10:04 Bacid - PO 1 tab DAILY CRIS Administration Mupirocin 1 applic 08/20/18 10:00 08/23/18 10:05 Bactroban 2% Ointment - TP 1 applic DAILY CRIS Administration Atdzd-3-Uhlq Ethyl Esters 2 gm 08/17/18 22:00 08/23/18 10:04 Lovaza - PO 2 gm BID CRIS Administration Ranitidine HCl 150 mg 08/17/18 22:00 08/23/18 10:04 Zantac - PO 150 mg BID CRIS Administration Ranolazine 500 mg 08/17/18 22:00 08/23/18 10:04 Ranexa - PO 500 mg BID CRIS Administration Sacubitril/Valsartan 1 tab 08/23/18 10:00 08/23/18 12:12 Entresto 24 Mg-26 Mg Tablet PO 1 tab BID CRIS Administration Sodium Chloride 2 spray 08/20/18 11:06 08/21/18 21:50 [place] Nasal [place] - NS 2 spray TID PRN Administration NASAL CONGESTION Left 2nd toe cellulitis: improving T2DM On Insulin pump at home CKD HLD CAD/Elevated Troponins: Probably secondary to demand ischemia CHF BGM Q ACHS and 3 AM D/C Levemir as pt will go back on Insulin pump after 6 PM today. Has pump at bedside. If the pump is not available pt should get Levemir 35 units at bedtime. Increase Novolog SS coverage IV abx Bone scan or MRI to R/O Osteo Will f/u
--- NOTE | 2018-08-23 17:28 | PN ---
Progress Note, Physician History of Present Illness: Awake, alert in bed Temps remain down Afebrile No c/o chest pain/ dyspnea WBC WNL vancomycin T 20 Cultures no growth Bone scan in progress - Current Medication List Current Medications: Active Medications Acetaminophen (Tylenol -) 650 mg PO Q4H PRN PRN Reason: FEVER Last Admin: 08/22/18 11:44 Dose: 650 mg Amlodipine Besylate (Norvasc -) 5 mg PO DAILY [facility] Last Admin: 08/23/18 10:04 Dose: 5 mg Aspirin (Asa -) 81 mg PO DAILY [facility] Last Admin: 08/23/18 10:04 Dose: 81 mg Atorvastatin Calcium (Lipitor -) 80 mg PO HS [facility] Last Admin: 08/22/18 21:00 Dose: 80 mg Carvedilol (Coreg -) 25 mg PO BID [facility] Last Admin: 08/23/18 10:05 Dose: 25 mg Chlorhexidine Gluconate (Hibiclens For Decolonization -) 1 applic TP [facility] Last Admin: 08/22/18 21:01 Dose: 1 applic Clopidogrel Bisulfate (Plavix -) 75 mg PO DAILY [facility] Last Admin: 08/23/18 10:04 Dose: 75 mg Fluticasone Propionate (Flonase -) 1 spray NS BID [facility] Last Admin: 08/23/18 11:23 Dose: Not Given Gabapentin (Neurontin -) 300 mg PO TID [facility] Last Admin: 08/23/18 13:35 Dose: 300 mg Guaifenesin/Codeine Phosphate (Robitussin Ac -) 10 ml PO Q6H PRN PRN Reason: COUGH Last Admin: 08/23/18 10:04 Dose: 10 ml Heparin Sodium (Porcine) (Heparin -) 5,000 unit SQ TID [facility] Last Admin: 08/23/18 13:39 Dose: 5,000 unit Furosemide 100 mg/ Dextrose 100 mls @ 5 mls/hr IVPB TITR [facility]; Protocol Last Admin: 08/23/18 12:37 Dose: 5 mg/hr, 5 mls/hr Ceftriaxone Sodium 2 gm/ (Dextrose) 100 mls @ 200 mls/hr IVPB DAILY [facility]; Protocol Last Admin: 08/23/18 10:04 Dose: 200 mls/hr Insulin Aspart (Novolog Vial Sliding Scale -) 1 vial SQ [facility]; Protocol Last Admin: 08/22/18 21:58 Dose: 6 unit Insulin Aspart (Novolog Vial Sliding Scale -) 1 vial SQ TIDAC [facility]; Protocol Lactobacillus Acidophilus (Bacid -) 1 tab PO DAILY [facility] Last Admin: 08/23/18 10:04 Dose: 1 tab Mupirocin (Bactroban 2% Ointment -) 1 applic TP DAILY [facility] Last Admin: 08/23/18 10:05 Dose: 1 applic Ncjse-5-Olym Ethyl Esters (Lovaza -) 2 gm PO BID [facility] Last Admin: 08/23/18 10:04 Dose: 2 gm Ranitidine HCl (Zantac -) 150 mg PO BID [facility] Last Admin: 08/23/18 10:04 Dose: 150 mg Ranolazine (Ranexa -) 500 mg PO BID [facility] Last Admin: 08/23/18 10:04 Dose: 500 mg Sacubitril/Valsartan (Entresto 24 Mg-26 Mg Tablet) 1 tab PO BID [facility] Last Admin: 08/23/18 12:12 Dose: 1 tab Sodium Chloride ([place] Nasal [place] -) 2 spray NS TID PRN PRN Reason: NASAL CONGESTION Last Admin: 08/21/18 21:50 Dose: 2 spray - Objective Vital Signs: Vital Signs Temperature 98.6 F 08/23/18 14:00 Pulse Rate 76 08/23/18 14:00 Respiratory Rate 18 08/23/18 14:00 Blood Pressure 142/87 08/23/18 14:00 O2 Sat by Pulse Oximetry (%) 98 08/23/18 09:00 Constitutional: Yes: Obese Cardiovascular: Yes: Regular Rate and Rhythm, S1, S2 Respiratory: Yes: CTA Bilaterally Gastrointestinal: Yes: Normal Bowel Sounds, Soft. No: Tenderness Extremities: Yes: Other (decreased 2nd toe erythema) Labs: CBC, BMP 08/23/18 05:15 08/23/18 05:15 INR, PTT INR 1.23 (0.83-1.09) H 08/18/18 08:05 Assessment/Plan Sepsis Cellulitis L 2nd toe/ distal L LE improved Renal failure Diabetes mellitus Check vancomycin trough am Continue ceftriaxone Await bone scan result
--- NOTE | 2018-08-23 17:56 | PN ---
Physical Exam: SUBJECTIVE: Patient seen and examined at bed side this morning. States he feels better but has burning sensation of the left leg. Was about to leave for bone scan. Still hypertensive Systolic around 160 mmHg. On Dobutamine drip @ 2.5 mcg and lasix drip @ 5 OBJECTIVE: Vital Signs Period Temp Pulse Resp BP Sys/Gallo Pulse Ox Last 24 Hr 98.2 F-98.6 F 67-85 16-22 138-167/69-88 98-100 GENERAL: Morbidly obese male, sitting in bed, eating lunch, patient is awake, alert, and fully oriented, in no acute distress. HEAD: Normal with no signs of trauma. EYES: EOM Intact, no pallor or icterus. ENT: Ears normal, moist mucous membranes. NECK: Supple, No JVD LUNGS: Bibasilar crackles. HEART: Regular rate and rhythm, S1, S2 with soft systolic murmur. ABDOMEN: Soft, nontender, no organomegaly. UPPER EXTREMITIES: 2+ pulses, warm, well-perfused, no edema. LOWER EXTREMITIES: Left second toe-erythema has improved, mildly tender to touch. B/L pitting edema improved. NEUROLOGICAL: No facial droop. Normal speech, gait not observed. PSYCH: Normal mood, normal affect. SKIN: Warm, dry, normal turgor, no rashes or lesions noted Laboratory Results - last 24 hr 08/22/18 08/22/18 08/23/18 05:15 21:20 05:15 WBC 6.6 RBC 2.83 L Hgb 8.8 L Hct 24.5 L MCV 86.5 MCH 31.2 MCHC 36.0 H RDW 16.7 H Plt Count 246 D MPV 7.2 L Absolute Neuts (auto) 5.1 Neutrophils % 77.9 Lymphocytes % 9.1 Monocytes % 9.4 Eosinophils % 3.2 Basophils % 0.4 Nucleated RBC % 0 PTT (Actin FS) Sodium Potassium Chloride Carbon Dioxide Anion Gap BUN Creatinine Creat Clearance w eGFR Random Glucose Calcium Phosphorus Magnesium Total Bilirubin AST ALT Alkaline Phosphatase Total Protein Albumin Random Vancomycin 20.12 Lyme Screen IgG & IgM <0.91 08/23/18 08/23/18 08/23/18 05:15 05:15 05:15 WBC 7.2 RBC 2.77 L Hgb 8.5 L Hct 23.7 L MCV 85.7 MCH 30.9 MCHC 36.0 H RDW 16.9 H Plt Count 283 MPV 7.2 L Absolute Neuts (auto) 5.5 Neutrophils % 76.5 Lymphocytes % 10.2 Monocytes % 9.3 Eosinophils % 3.2 Basophils % 0.8 Nucleated RBC % 0 PTT (Actin FS) 29.8 Sodium 134 L Potassium 4.2 Chloride 98 Carbon Dioxide 27 Anion Gap 9 BUN 87 H Creatinine 4.1 H Creat Clearance w eGFR 15.17 Random Glucose 228 H Calcium 8.3 L Phosphorus 5.6 H Magnesium 1.9 Total Bilirubin 0.5 AST 21 ALT 39 Alkaline Phosphatase 84 Total Protein 6.6 Albumin 2.2 L Random Vancomycin Lyme Screen IgG & IgM Active Medications Generic Name Dose Route Start Last Admin Trade Name Freq PRN Reason Stop Dose Admin Acetaminophen 650 mg 08/17/18 18:08 08/22/18 11:44 Tylenol - PO 650 mg Q4H PRN Administration FEVER Amlodipine Besylate 5 mg 08/22/18 10:00 08/23/18 10:04 Norvasc - PO 5 mg DAILY CRIS Administration Aspirin 81 mg 08/18/18 10:00 08/23/18 10:04 Asa - PO 81 mg DAILY CRIS Administration Atorvastatin Calcium 80 mg 08/17/18 22:00 08/22/18 21:00 Lipitor - PO 80 mg HS CRIS Administration Carvedilol 25 mg 08/18/18 22:00 08/23/18 10:05 Coreg - PO 25 mg BID CRIS Administration Chlorhexidine Gluconate 1 applic 08/17/18 22:00 08/22/18 21:01 Hibiclens For Decolonization - TP 1 applic HS CRIS Administration Clopidogrel Bisulfate 75 mg 08/18/18 10:00 08/23/18 10:04 Plavix - PO 75 mg DAILY CRIS Administration Fluticasone Propionate 1 spray 08/20/18 11:15 08/23/18 11:23 Flonase - NS Not Given BID CRIS Gabapentin 300 mg 08/23/18 14:00 08/23/18 13:35 Neurontin - PO 300 mg TID CRIS Administration Guaifenesin/Codeine Phosphate 10 ml 08/21/18 23:20 08/23/18 10:04 Robitussin Ac - PO 10 ml Q6H PRN Administration COUGH Heparin Sodium (Porcine) 5,000 unit 08/19/18 14:00 08/23/18 13:39 Heparin - SQ 5,000 unit TID CRIS Administration Furosemide 100 mg/ Dextrose 100 mls @ 5 mls/hr 08/21/18 09:45 08/23/18 12:37 IVPB 5 mg/hr TITR CRIS 5 mls/hr Administration Protocol 5 MG/HR Ceftriaxone Sodium 2 gm/ 100 mls @ 200 mls/hr 08/22/18 11:45 08/23/18 10:04 Dextrose IVPB 200 mls/hr DAILY [facility]IS Administration Protocol Insulin Aspart 1 vial 08/20/18 22:00 08/22/18 21:58 Novolog Vial Sliding Scale - SQ 6 unit HS CRIS Administration Protocol Insulin Aspart 1 vial 08/23/18 13:38 08/23/18 17:28 Novolog Vial Sliding Scale - SQ Not Given TIDAC CRIS Protocol Lactobacillus Acidophilus 1 tab 08/19/18 10:00 08/23/18 10:04 Bacid - PO 1 tab DAILY [facility] Administration Mupirocin 1 applic 08/20/18 10:00 08/23/18 10:05 Bactroban 2% Ointment - TP 1 applic DAILY [facility] Administration Lipfa-3-Hfbg Ethyl Esters 2 gm 08/17/18 22:00 08/23/18 10:04 Lovaza - PO 2 gm BID [facility]IS Administration Ranitidine HCl 150 mg 08/17/18 22:00 08/23/18 10:04 Zantac - PO 150 mg BID CRIS Administration Ranolazine 500 mg 08/17/18 22:00 08/23/18 10:04 Ranexa - PO 500 mg BID CRIS Administration Sacubitril/Valsartan 1 tab 08/23/18 10:00 08/23/18 12:12 Entresto 24 Mg-26 Mg Tablet PO 1 tab BID [facility]IS Administration Sodium Chloride 2 spray 08/20/18 11:06 08/21/18 21:50 [place] Nasal [place] - NS 2 spray TID PRN Administration NASAL CONGESTION ECHO 08/18/18: Left ventricular size, thickness, function normal. Left atrium and right atrium mildly dilated. Moderate Aortic stenosis. Trace TR. Right ventricular systolic pressure 40-50 mmHg. Left toe xray-No acute pathology. ASSESSMENT/PLAN: Patient is a 57 year old male with significant PMHx IDDM (on insulin pump), HTN , HLD, CAD s/p CABG and s/p AICD, CHF, Aortic stenosis, CKD, p/w fever, rigors, malaise x 1 day, admitted to ICU for NSTEMI and sepsis. # Sepsis likely secondary to Left second digit cellulitis r/o osteomyelitis Bone scan done today, report pending Continue IV Ceftriaxone 2gm daily. Random vanc 20 today. Blood cultures negative. # Volume overload likely from acute on chronic systolic dysfunction and CKD On IV Lasix drip. Discontinue dobutamine today, as per cardio. I's and O's. Urinary Output 5700 over 24 hrs. Continue Diaz. Daily weight. 293-->286 lbs # NSTEMI: trops trending down. Continue Statin 80 mg HS Continue Aspirin 81 mg/Plavix Echo reviewed. Report as above Cardiology on board. # HECTOR on CKD likely secondary to hypoperfusion from Sepsis Creatiine 4.4--> 4.2-->4.1 Avoid nephrotoxic drugs Renal on board # HTN-admitted with septic shock responded to IV fluids, now resume COreg 25 mg PO BID # DM Uses Insulin pump at home. brought in the Insulin pump and is in the right arm. Will d/c levemir. continue Finger sticks. Watch for hypoglycemic episodes # FEN Not on IV fluids. Electrolytes: Hypomg, now repleted Diabetic diet # Prophylaxis For DVT: On Heparin sq TID For GI: Ranitidine 150 mg BID # Code Status: Full Code # Dispo: Can be transferred to tele from ICU. Illness, Investigation and Plan of care explained to the patient. He verbalized understanding. Case discussed with Dr. Blackburn. Visit type - Emergency Visit Emergency Visit: Yes ED Registration Date: 08/17/18 Care time: The patient presented to the Emergency Department on the above date and was hospitalized for further evaluation of their emergent condition. - New Patient This patient is new to me today: No - Critical Care Critical Care patient: Yes Total Critical Care Time (in minutes): 35 Critical Care Statement: The care of this patient involved high complexity decision making to prevent further life threatening deterioration of the patient 's condition and/or to evaluate & treat vital organ system(s) failure or risk of failure. - Discharge Referral Referred to [facility] No
[2018-08-23] MEDS: CHLORHEXIDINE GLUCONATE 4% CLEANSER FOR DECOLONIZATION TP SCH (22:00)
[2018-08-23] MEDS: ATORVASTATIN CA 80 MG TABLET (FP) PO SCH (22:02)
[2018-08-24] MEDS: HEPARIN NA (PORCINE) 5,000 UNITS/ML 1ML VIAL SQ SCH ×3 (05:38→22:26)
[2018-08-24] MEDS: GABAPENTIN 300 MG CAPSULE (FP) PO SCH ×3 (05:38→22:16)
[2018-08-24] MEDS: guaiFENesin/CODEINE 10 ML UNIT-DOSE CUPS PO PRN ×2 (05:48→17:06)
[2018-08-24 05:54] LABS: BASO % 0.6 % (0-2.0); EOS % 3.1 % (0-4.5); HEMATOCRIT 25.3 % (35.4-49); HEMOGLOBIN 8.4 GM/dL (11.7-16.9); LYMPH % 12.7 % (8-40); MCH 29.4 pg (25.7-33.7); MCHC 33.4 g/dl (32.0-35.9); MEAN CELL VOLUME 87.9 fl (80-96); MEAN PLT VOLUME 6.9 fl (7.5-11.1); MONO % 9.3 % (3.8-10.2); NEUT % 74.3 % (42.8-82.8); PLATELET COUNT 297 K/MM3 (134-434); RBC 2.87 M/mm3 (4.00-5.60); RDW 16.8 % (11.9-15.9); WHITE BLOOD COUNT 6.4 K/mm3 (4.0-10.0)
[2018-08-24] MEDS: INSULIN SLIDING SCALE (NOVOLOG) 1 VIAL SQ SCH ×4 (06:02→22:07)
[2018-08-24 07:25] LABS: ANION GAP 10 MMOL/L (8-16); BLOOD UREA NITROGEN 100 mg/dL (7-18); CHLORIDE 99 mmol/L (98-107); CO2 27 mmol/L (21-32); CREATININE 4.6 mg/dL (0.55-1.3); GLUCOSE,RANDOM 141 mg/dL (74-106); MAGNESIUM 2.3 mg/dL (1.8-2.4); PHOSPHOROUS 6.4 mg/dL (2.5-4.9); SODIUM 136 mmol/L (136-145)
[2018-08-24] MEDS ORDERED: POTASSIUM CHLORIDE TABS 20 MEQ TABLET.ER (FP) PO ONE ×2 (07:31→10:45)
--- NOTE | 2018-08-24 09:12 | PN ---
Physical Exam: SUBJECTIVE: Patient seen and examined at bedside. Remains on lasix gtt downtitrated to 5, dobutamine gtt d/c'd per cardiology instructions. Worsening SOB and cough. Denies CP, VELEZ, abdominal pain, nausea or vomiting. OBJECTIVE: Vital Signs Period Temp Pulse Resp BP Sys/Gallo Pulse Ox Last 24 Hr 97.8 F-98.6 F 72-87 15-21 106-167/59-96 99 GENERAL: A&Ox3, NAD HEAD: NC/AT EYES: PERRLA, EOMI EARS, NOSE, THROAT: MMM NECK: Normal range of motion, supple without lymphadenopathy LUNGS: scant bibasilar crackles, good aeration and effort HEART: Paced rhythm, no m/r/g ABDOMEN: +bs, soft, non-tender EXTREMITIES: 2+ pulses upper, 1+ pulses lower, warm, well-perfused. Distal LLE swollen. Erythematous ulcer of left second toe, receding from demarcation line. Warmth throughout left calf relative to right, left calf significantly tender w / burning sensation. 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 Good eye contact. Appropriate mood and affect. SKIN: Warm, dry, normal turgor Laboratory Results - last 24 hr 08/22/18 08/23/18 08/24/18 05:15 05:15 05:15 WBC RBC Hgb Hct MCV MCH MCHC RDW Plt Count MPV Absolute Neuts (auto) Total Counted Neutrophils % Neutrophils % (Manual) Band Neutrophils % Lymphocytes % Lymphocytes % (Manual) Monocytes % Monocytes % (Manual) Eosinophils % Eosinophils % (Manual) Basophils % Nucleated RBC % Sodium 134 L Potassium 4.2 Chloride 98 Carbon Dioxide 27 Anion Gap 9 BUN 87 H Creatinine 4.1 H Creat Clearance w eGFR 15.17 Random Glucose 228 H Calcium 8.3 L Phosphorus 5.6 H Magnesium 1.9 Total Bilirubin 0.5 AST 21 ALT 39 Alkaline Phosphatase 84 Total Protein 6.6 Albumin 2.2 L Random Vancomycin 16.1 L Lyme Screen IgG & IgM <0.91 08/24/18 08/24/18 05:15 05:15 WBC 6.4 RBC 2.87 L Hgb 8.4 L Hct 25.3 L MCV 87.9 MCH 29.4 MCHC 33.4 RDW 16.8 H Plt Count 297 MPV 6.9 L Absolute Neuts (auto) 4.8 Total Counted 100 Neutrophils % 74.3 Neutrophils % (Manual) 84.0 H Band Neutrophils % 1.0 Lymphocytes % 12.7 D Lymphocytes % (Manual) 11.0 Monocytes % 9.3 Monocytes % (Manual) 2 L Eosinophils % 3.1 Eosinophils % (Manual) 2.0 Basophils % 0.6 Nucleated RBC % 0 Sodium 136 Potassium 4.0 Chloride 99 Carbon Dioxide 27 Anion Gap 10 BUN 100 H Creatinine 4.6 H Creat Clearance w eGFR 13.28 Random Glucose 141 H Calcium 8.0 L Phosphorus 6.4 H Magnesium 2.3 Total Bilirubin AST ALT Alkaline Phosphatase Total Protein Albumin Random Vancomycin Lyme Screen IgG & IgM Active Medications Generic Name Dose Route Start Last Admin Trade Name Freq PRN Reason Stop Dose Admin Acetaminophen 650 mg 08/17/18 18:08 08/22/18 11:44 Tylenol - PO 650 mg Q4H PRN Administration FEVER Amlodipine Besylate 5 mg 08/22/18 10:00 08/23/18 10:04 Norvasc - PO 5 mg DAILY [facility] Administration Aspirin 81 mg 08/18/18 10:00 08/23/18 10:04 Asa - PO 81 mg DAILY [facility] Administration Atorvastatin Calcium 80 mg 08/17/18 22:00 08/23/18 22:02 Lipitor - PO 80 mg HS [facility] Administration Calcium Acetate 667 mg 08/24/18 08:00 Phoslo - PO TIDCM [facility] Carvedilol 25 mg 08/18/18 22:00 08/23/18 22:02 Coreg - PO 25 mg BID [facility] Administration Chlorhexidine Gluconate 1 applic 08/17/18 22:00 08/23/18 22:00 Hibiclens For Decolonization - TP 1 applic HS [facility] Administration Clopidogrel Bisulfate 75 mg 08/18/18 10:00 08/23/18 10:04 Plavix - PO 75 mg DAILY [facility] Administration Fluticasone Propionate 1 spray 08/20/18 11:15 08/23/18 22:01 Flonase - NS Not Given BID [facility] Gabapentin 300 mg 08/23/18 14:00 08/24/18 05:38 Neurontin - PO 300 mg TID [facility] Administration Guaifenesin/Codeine Phosphate 10 ml 08/21/18 23:20 08/24/18 05:48 Robitussin Ac - PO 10 ml Q6H PRN Administration COUGH Heparin Sodium (Porcine) 5,000 unit 08/19/18 14:00 08/24/18 05:38 Heparin - SQ 5,000 unit TID [facility] Administration Furosemide 100 mg/ Dextrose 100 mls @ 5 mls/hr 08/21/18 09:45 08/23/18 12:37 IVPB 5 mg/hr TITR [facility] 5 mls/hr Administration Protocol 5 MG/HR Ceftriaxone Sodium 2 gm/ 100 mls @ 200 mls/hr 08/22/18 11:45 08/23/18 10:04 Dextrose IVPB 200 mls/hr DAILY [facility] Administration Protocol Potassium Chloride 10 meq in 100 mls @ 100 mls/hr 08/24/18 07:45 Potassium Chloride 10 Meq Premix Ivpb - IVPB 08/24/18 10:44 Q60M [facility] Insulin Aspart 1 vial 08/20/18 22:00 08/23/18 23:20 Novolog Vial Sliding Scale - SQ Not Given HS [facility] Protocol Insulin Aspart 1 vial 08/23/18 13:38 08/24/18 06:02 Novolog Vial Sliding Scale - SQ Not Given TIDAC [facility] Protocol Lactobacillus Acidophilus 1 tab 08/19/18 10:00 08/23/18 10:04 Bacid - PO 1 tab DAILY [facility] Administration Mupirocin 1 applic 08/20/18 10:00 08/23/18 10:05 Bactroban 2% Ointment - TP 1 applic DAILY [facility] Administration [id number]-5-[id number] Ethyl Esters 2 gm 08/17/18 22:00 08/23/18 22:00 Lovaza - PO 2 gm BID [facility] Administration Ranitidine HCl 150 mg 08/17/18 22:00 08/23/18 21:59 Zantac - PO 150 mg BID [facility] Administration Ranolazine 500 mg 08/17/18 22:00 08/23/18 22:02 Ranexa - PO 500 mg BID [facility] Administration Sodium Chloride 2 spray 08/20/18 11:06 08/21/18 21:50 [employer] [place] Nasal [place] - NS 2 spray TID PRN Administration NASAL CONGESTION ASSESSMENT/PLAN: 57 y/o M w/ PMHx IDDM (on insulin pump), HTN, HLD, CAD s/p CABG and s/p AICD, CHF, Aortic stenosis, CKD, p/w fever, rigors, malaise x 1 day, admitted to ICU for NSTEMI and sepsis. #CV -Dr. Mullen following -troponins downtrended, completed heparin gtt, now on prophylactic heparin subq -congestion on CXR shows improvement -cont Lasix gtt at increased rate per cardiology -repeat BMP, Mg, Phos this PM -patient agrees to central line placement under ultrasound guidance if necessary for pressure support -per cardiology, ASA/Plavix, Lipitor, Lovaza, Ranexa, coreg -norvasc PRN for recurrent significant hypertension -d/c'd Entresto as creatinine increased -maintain K > 4.5, Mg > 2 #ID -ID consulted and case discussed -avoid nephrotoxic ABx -ABx switched to ceftriaxone as per ID -wound care and in-house podiatry consulted -no surgical intervention at this time -wound care and podiatry recommend MRI, however cardiac hardware precludes MR study -bone scan performed yesterday, awaiting read -08/20/18 podiatry performed bedside I&D, "minimal serous drainage noted from distal aspect of the 2nd digit" #renal/urology -nephrology following -per nephrology, "Urine Sodium low consistent with volume depletion with preserved tubular function" -Cr above CKD baseline -started phoslo -fluids held d/t pulm congestion -IV Lasix d/t pulm congestion -avoid nephrotoxic agents -d/c'd Entresto as creatinine increased -joiner in place, 4.6L output yesterday #pulmonary -NC titrate to >95% O2 -flonase/ocean NS #endocrinology -endocrinology following -off insulin pump -tight BGM and SSI + levemir per endocrinology -gabapentin for neuropathy #FEN -no IVF -monitor and correct electrolytes -diabetic diet #PPx -DVT: heparin subq -GI: Zantac #code -full #dispo -transfer to telemetry Visit type - Emergency Visit Emergency Visit: No - New Patient This patient is new to me today: No - Critical Care Critical Care patient: Yes Total Critical Care Time (in minutes): 40 Critical Care Statement: The care of this patient involved high complexity decision making to prevent further life threatening deterioration of the patient 's condition and/or to evaluate & treat vital organ system(s) failure or risk of failure.
[2018-08-24] MEDS ORDERED: DEXTROSE 5%-WATER 100 ML IVPB ONE (09:26)
[2018-08-24] MEDS: KCL 10 MEQ IVPB 10 MEQ/100 ML INFUS.BAG IVPB SCH ×3 (09:30→12:59)
[2018-08-24] MEDS: RANOLAZINE E.R. 500 MG TABLET (FP) PO SCH ×2 (09:31→22:16)
[2018-08-24] MEDS: CLOPIDOGREL BISULFATE 75 MG TABLET (FP) PO SCH (09:31)
[2018-08-24] MEDS: LACTOBACILLUS ACIDOPHILUS 1 TABLET PO SCH (09:31)
[2018-08-24] MEDS: RANITIDINE HCL 150 MG TABLET (FP) PO SCH ×2 (09:31→22:16)
[2018-08-24] MEDS: ASPIRIN 81 MG CHEWABLE TABLETS PO SCH (09:31)
[2018-08-24] MEDS: OMEGA-3 ACID ETHYL ESTERS (FATTY-ACIDS) 1 GM CAPSULE (FP) PO SCH ×2 (09:31→22:16)
[2018-08-24] MEDS: MUPIROCIN 2% TOPICAL OINTMENT 22 GM TUBE TP SCH (09:31)
[2018-08-24] MEDS: CALCIUM ACETATE 667 MG CAPSULE (FP) PO SCH ×3 (09:31→17:06)
[2018-08-24] MEDS: FLUTICASONE PROP 0.05% 16 GM NASAL SPRAY NS SCH ×2 (09:32→22:26)
[2018-08-24] MEDS: CARVEDILOL 25 MG TABLET (FP) PO SCH ×2 (09:33→22:16)
[2018-08-24] MEDS: amLODIPine BESYLATE 5 MG TABLET (FP) PO SCH (09:33)
--- NOTE | 2018-08-24 10:10 | PN ---
Progress Note, Physician History of Present Illness: Awake, alert in bed Complains of distal L calf pain No c/o toe pain Afebrile WBC WNL Cultures no growth Bone scan result pending - Current Medication List Current Medications: Active Medications Acetaminophen (Tylenol -) 650 mg PO Q4H PRN PRN Reason: FEVER Last Admin: 08/22/18 11:44 Dose: 650 mg Amlodipine Besylate (Norvasc -) 5 mg PO DAILY [facility] Last Admin: 08/24/18 09:33 Dose: Not Given Aspirin (Asa -) 81 mg PO DAILY [facility] Last Admin: 08/24/18 09:31 Dose: 81 mg Atorvastatin Calcium (Lipitor -) 80 mg PO HS [facility] Last Admin: 08/23/18 22:02 Dose: 80 mg Calcium Acetate (Phoslo -) 667 mg PO TIDCM [facility] Last Admin: 08/24/18 09:31 Dose: 667 mg Carvedilol (Coreg -) 25 mg PO BID [facility] Last Admin: 08/24/18 09:33 Dose: 25 mg Chlorhexidine Gluconate (Hibiclens For Decolonization -) [address] [facility] Last Admin: 08/23/18 22:00 Dose: 1 applic Clopidogrel Bisulfate (Plavix -) 75 mg PO DAILY [facility] Last Admin: 08/24/18 09:31 Dose: 75 mg Fluticasone Propionate (Flonase -) 1 spray NS BID [facility] Last Admin: 08/24/18 09:32 Dose: Not Given Gabapentin (Neurontin -) 600 mg PO TID [facility] Guaifenesin/Codeine Phosphate (Robitussin Ac -) 10 ml PO Q6H PRN PRN Reason: COUGH Last Admin: 08/24/18 05:48 Dose: 10 ml Heparin Sodium (Porcine) (Heparin -) 5,000 unit SQ TID [facility] Last Admin: 08/24/18 05:38 Dose: 5,000 unit Furosemide 100 mg/ Dextrose 100 mls @ 5 mls/hr IVPB TITR [facility]; Protocol Last Admin: 08/23/18 12:37 Dose: 5 mg/hr, 5 mls/hr Ceftriaxone Sodium 2 gm/ (Dextrose) 100 mls @ 200 mls/hr IVPB DAILY [facility]; Protocol Last Admin: 08/23/18 10:04 Dose: 200 mls/hr Potassium Chloride (Potassium Chloride 10 Meq Premix Ivpb -) 10 meq in 100 mls @ 100 mls/hr IVPB Q60M [facility] Stop: 08/24/18 10:44 Last Admin: 08/24/18 09:30 Dose: 100 mls/hr Insulin Aspart (Novolog Vial Sliding Scale -) 1 vial SQ HS [facility]; Protocol Last Admin: 08/23/18 23:20 Dose: Not Given Insulin Aspart (Novolog Vial Sliding Scale -) 1 vial SQ TIDAC [facility]; Protocol Last Admin: 08/24/18 06:02 Dose: Not Given Lactobacillus Acidophilus (Bacid -) 1 tab PO DAILY [facility] Last Admin: 08/24/18 09:31 Dose: 1 tab Mupirocin (Bactroban 2% Ointment -) 1 applic TP DAILY [facility] Last Admin: 08/24/18 09:31 Dose: 1 applic [id number] Ethyl Esters (Lovaza -) 2 gm PO BID [facility] Last Admin: 08/24/18 09:31 Dose: 2 gm Ranitidine HCl (Zantac -) 150 mg PO BID [facility] Last Admin: 08/24/18 09:31 Dose: 150 mg Ranolazine (Ranexa -) 500 mg PO BID [facility] Last Admin: 08/24/18 09:31 Dose: 500 mg Sodium Chloride ([place] Nasal [place] -) 2 spray NS TID PRN PRN Reason: NASAL CONGESTION Last Admin: 08/21/18 21:50 Dose: 2 spray - Objective Vital Signs: Vital Signs Temperature 97.8 F 08/24/18 08:00 Pulse Rate 83 08/24/18 08:00 Respiratory Rate 18 08/24/18 08:00 Blood Pressure 119/70 08/24/18 08:00 O2 Sat by Pulse Oximetry (%) 99 08/24/18 09:00 Constitutional: Yes: No Distress, Obese Cardiovascular: Yes: Regular Rate and Rhythm, S1, S2 Respiratory: Yes: Diminished Gastrointestinal: Yes: Normal Bowel Sounds, Soft, Abdomen, Obese. No: Tenderness Extremities: Yes: Other (+ tenderness distal posterior calf. Erythema 2nd toe nearly resolved) Labs: CBC, BMP 08/24/18 05:15 08/24/18 05:15 INR, PTT INR 1.23 (0.83-1.09) H 08/18/18 08:05 Assessment/Plan Sepsis Cellulitis L 2nd toe/ distal L LE improved Renal failure Diabetes mellitus Continue ceftriaxone Await bone scan result
--- NOTE | 2018-08-24 10:22 | PN ---
Progress Note, Physician Chief Complaint: Events noted Remains in ICU Dobutamine has been stopped. Still on Lasix drip History of Present Illness: Patient was seen and examined. Awake and alert. Chart was reviewed Denies chest pain, but complains of shortness of breath - Current Medication List Current Medications: Active Medications Acetaminophen (Tylenol -) 650 mg PO Q4H PRN PRN Reason: FEVER Last Admin: 08/22/18 11:44 Dose: 650 mg Amlodipine Besylate (Norvasc -) 5 mg PO DAILY [facility] Last Admin: 08/24/18 09:33 Dose: Not Given Aspirin (Asa -) 81 mg PO DAILY [facility] Last Admin: 08/24/18 09:31 Dose: 81 mg Atorvastatin Calcium (Lipitor -) 80 mg PO HS [facility] Last Admin: 08/23/18 22:02 Dose: 80 mg Calcium Acetate (Phoslo -) 667 mg PO TIDCM [facility] Last Admin: 08/24/18 09:31 Dose: 667 mg Carvedilol (Coreg -) 25 mg PO BID [facility] Last Admin: 08/24/18 09:33 Dose: 25 mg Chlorhexidine Gluconate (Hibiclens For Decolonization -) 1 applic TP HS [facility] Last Admin: 08/23/18 22:00 Dose: 1 applic Clopidogrel Bisulfate (Plavix -) 75 mg PO DAILY [facility] Last Admin: 08/24/18 09:31 Dose: 75 mg Fluticasone Propionate (Flonase -) 1 spray NS BID [facility] Last Admin: 08/24/18 09:32 Dose: Not Given Gabapentin (Neurontin -) 600 mg PO TID [facility] Guaifenesin/Codeine Phosphate (Robitussin Ac -) 10 ml PO Q6H PRN PRN Reason: COUGH Last Admin: 08/24/18 05:48 Dose: 10 ml Heparin Sodium (Porcine) (Heparin -) 5,000 unit SQ TID [facility] Last Admin: 08/24/18 05:38 Dose: 5,000 unit Furosemide 100 mg/ Dextrose 100 mls @ 5 mls/hr IVPB TITR [facility]; Protocol Last Admin: 08/23/18 12:37 Dose: 5 mg/hr, 5 mls/hr Ceftriaxone Sodium 2 gm/ (Dextrose) 100 mls @ 200 mls/hr IVPB DAILY [facility]; Protocol Last Admin: 08/23/18 10:04 Dose: 200 mls/hr Potassium Chloride (Potassium Chloride 10 Meq Premix Ivpb -) 10 meq in 100 mls @ 100 mls/hr IVPB Q60M [facility] Stop: 08/24/18 10:44 Last Admin: 08/24/18 09:30 Dose: 100 mls/hr Insulin Aspart (Novolog Vial Sliding Scale -) 1 vial SQ HS [facility]; Protocol Last Admin: 08/23/18 23:20 Dose: Not Given Insulin Aspart (Novolog Vial Sliding Scale -) 1 vial SQ TIDAC [facility]; Protocol Last Admin: 08/24/18 06:02 Dose: Not Given Lactobacillus Acidophilus (Bacid -) 1 tab PO DAILY [facility] Last Admin: 08/24/18 09:31 Dose: 1 tab Mupirocin (Bactroban 2% Ointment -) 1 applic TP DAILY [facility] Last Admin: 08/24/18 09:31 Dose: 1 applic Nykze-3-Dgzy Ethyl Esters (Lovaza -) 2 gm PO BID [facility] Last Admin: 08/24/18 09:31 Dose: 2 gm Ranitidine HCl (Zantac -) 150 mg PO BID [facility] Last Admin: 08/24/18 09:31 Dose: 150 mg Ranolazine (Ranexa -) 500 mg PO BID [facility] Last Admin: 08/24/18 09:31 Dose: 500 mg Sodium Chloride ([place] Nasal [place] -) 2 spray NS TID PRN PRN Reason: NASAL CONGESTION Last Admin: 08/21/18 21:50 Dose: 2 spray - Objective Vital Signs: Vital Signs Temperature 97.8 F 08/24/18 08:00 Pulse Rate 83 08/24/18 08:00 Respiratory Rate 18 08/24/18 08:00 Blood Pressure 119/70 08/24/18 08:00 O2 Sat by Pulse Oximetry (%) 99 08/24/18 09:00 HENT: Yes: Atraumatic Neck: Yes: Supple Cardiovascular: Yes: Regular Rate and Rhythm, S1, S2 Respiratory: Yes: Diminished Gastrointestinal: Yes: Normal Bowel Sounds, Soft, Abdomen, Obese. No: Tenderness Edema: No Additional Findings/Remarks: - Review of Systems Constitutional: reports: Chills. denies: Fever Cardiovascular: reports: Shortness of Breath. denies: Chest Pain, Palpitations Respiratory: reports: SOB, SOB on Exertion. denies: Cough, Hemoptysis, Orthopnea, PND Gastrointestinal: denies: Abdominal Pain, Constipation, Diarrhea, Melena, Nausea , Rectal Bleeding, Vomiting Genitourinary: denies: Dysuria, Hematuria Musculoskeletal: denies: Back Pain, Joint Pain Integumentary: reports: Change in Color, Erythema Neurological: reports: Dizziness. denies: Headache, Seizure, Syncope Labs: CBC, BMP 08/24/18 05:15 08/24/18 05:15 Problem List - Problems (1) Sepsis Code(s): A41.9 - SEPSIS, UNSPECIFIED ORGANISM Qualifiers: Sepsis type: sepsis due to unspecified organism Qualified Code(s): A41.9 - Sepsis, unspecified organism (2) Acute on chronic kidney failure Code(s): N17.9 - ACUTE KIDNEY FAILURE, UNSPECIFIED; N18.9 - CHRONIC KIDNEY DISEASE, UNSPECIFIED Qualifiers: Acute renal failure type: unspecified Chronic kidney disease stage: unspecified stage Qualified Code(s): N17.9 - Acute kidney failure, unspecified ; N18.9 - Chronic kidney disease, unspecified (3) Acute on chronic systolic (congestive) heart failure Code(s): I50.23 - ACUTE ON CHRONIC SYSTOLIC (CONGESTIVE) HEART FAILURE (4) Anemia Code(s): D64.9 - ANEMIA, UNSPECIFIED Qualifiers: Anemia type: unspecified type Qualified Code(s): D64.9 - Anemia, unspecified (5) Aortic valve stenosis Code(s): I35.0 - NONRHEUMATIC AORTIC (VALVE) STENOSIS Qualifiers: Cardiac valve disease etiology: nonrheumatic Qualified Code(s): I35.0 - Nonrheumatic aortic (valve) stenosis (6) CAD (coronary artery disease) Code(s): I25.10 - ATHSCL HEART DISEASE OF [place] CORONARY ARTERY W/O ANG PCTRS Qualifiers: Coronary Disease-Associated Artery/Lesion type: [place] artery [place] vs. transplanted heart: [place] heart Associated angina: without angina Qualified Code(s): I25.10 - Atherosclerotic heart disease of [place] coronary artery without angina pectoris (7) CKD stage 4 due to type 2 diabetes mellitus Code(s): E11.22 - TYPE 2 DIABETES MELLITUS W DIABETIC CHRONIC KIDNEY DISEASE; N18.4 - CHRONIC KIDNEY DISEASE, STAGE 4 (SEVERE) (8) Demand ischemia Code(s): I24.8 - OTHER FORMS OF ACUTE ISCHEMIC HEART DISEASE (9) Diabetes mellitus Code(s): E11.9 - TYPE 2 DIABETES MELLITUS WITHOUT COMPLICATIONS Qualifiers: Diabetes mellitus type: type 2 Diabetes mellitus complication status: without complication (10) Elevated troponin Code(s): R79.89 - OTHER SPECIFIED ABNORMAL FINDINGS OF BLOOD CHEMISTRY (11) HLD (hyperlipidemia) Code(s): E78.5 - HYPERLIPIDEMIA, UNSPECIFIED Qualifiers: Hyperlipidemia type: pure hypercholesterolemia Qualified Code(s): E78.00 - Pure hypercholesterolemia, unspecified (12) HTN (hypertension) Code(s): I10 - ESSENTIAL (PRIMARY) HYPERTENSION Qualifiers: Hypertension type: essential hypertension Qualified Code(s): I10 - Essential (primary) hypertension (13) History of coronary artery stent placement Code(s): Z95.5 - PRESENCE OF CORONARY ANGIOPLASTY IMPLANT AND GRAFT (14) Hx of CABG Code(s): Z95.1 - PRESENCE OF AORTOCORONARY BYPASS GRAFT (15) ICD (implantable cardioverter-defibrillator) in place Code(s): Z95.810 - PRESENCE OF AUTOMATIC (IMPLANTABLE) CARDIAC DEFIBRILLATOR (16) Nephrolithiasis Code(s): N20.0 - CALCULUS OF KIDNEY (17) Sleep apnea Code(s): G47.30 - SLEEP APNEA, UNSPECIFIED Qualifiers: Sleep apnea type: obstructive Qualified Code(s): G47.33 - Obstructive sleep apnea (adult) (pediatric) (18) Systolic dysfunction without heart failure Code(s): I51.9 - HEART DISEASE, UNSPECIFIED Assessment/Plan 1. Acute on chronic class II-III NYHA classification LV failure related to LV systolic dysfunction 2. CAD post [place]/CABG, PCI/stent, demand ischemic injury history of an abnormal MPI study angina pectoris 3. Aortic stenosis 4. HTN 5. IDDM 6. Hypercholesterolemia 7. Post prophylactic ICD implant, history of NSVT 8. Acute on CKD 9. Anemia post transfusion 10. Gout 11. Obstructive sleep apnea 12. Left leg cellulitis PLAN: 1. Lasix drip - increase drip rate and follow renal function and electrolytes 2. Off Dobutamine 3. Continue Coreg 25 mg BID 4. Entresto 26/26 mg BID as tolerated. Currently held again due to renal compromise 5. Continue Ranexa 500 mg BID 6. Continue Norvasc 5 mg QD 7. Continue Lipitor 80 mg QHS 8. Continue Plavix 75 mg QD and ASA 81 mg QD with caution in view of the above noted anemia, transfuse as needed to maintain Hg equal or > 8.0 9. Complete antibiotic course 10. Continue optimize medical therapy 11. DVT prophylaxis Paras Jensen MD
--- NOTE | 2018-08-24 10:43 | PN ---
Teaching Attending Note Name of Resident: Char Vera ATTENDING PHYSICIAN STATEMENT I saw and evaluated the patient. I reviewed the resident's note and discussed the case with the resident. I agree with the resident's findings and plan as documented with exceptions below. SUBJECTIVE: Patient seen and examined. Breathing improved, left toe symptoms improved. Overall feels much better. Resumed on insulin pump. Denies any abdominal or urinary symptoms. OBJECTIVE: Vital Signs Period Temp Pulse Resp BP Sys/Gallo Pulse Ox Last 24 Hr 97.8 F-98.6 F 72-87 15-21 106-142/59-96 99-99 Intake & Output 08/21/18 08/22/18 08/23/18 08/24/18 23:59 23:59 23:59 23:59 Intake Total 2060.7 1487.6 1378 275 Output Total 5550 5700 4600 300 Balance -3489.3 -4212.4 -3222 -25 Weight 286 lb 6.4 oz 284 lb 2.813 oz General: sitting in bed, no acute distress, no use of accessory muscles of respratory Chest: decreased breath sounds at bases, improved air entry Abdomen:Soft, Obese, nT Extremities: left foot swelling resolved, Left 2nd toe minimal swelling, unchanged superficial scab with ulceration no active discharge or tenderness noted CVS;S1S2 irregular Telemetry NSR with PVCs Home Medications Medication Instructions Recorded Ranolazine [Ranexa] 500 mg PO BID 07/13/13 Ranitidine [Zantac -] 150 mg PO BID 06/19/17 Clonidine Patch [Catapres Tts 0.3 mg TD WEEKLY 06/21/17 Patch -] Aspirin [ASA -] 81 mg PO DAILY 09/28/17 Nitroglycerin [Nitrostat] 0.4 mg SL PRN PRN 09/28/17 Torsemide 1 tab PO DAILY 09/29/17 Carvedilol [Coreg -] 25 mg PO BID #60 tablet 09/30/17 Atorvastatin Ca [Lipitor] 80 mg PO HS 06/01/18 Ergocalciferol (Vitamin D2) 50,000 unit PO WEEKLY 06/01/18 [Vitamin D2] Insulin Lispro [Humalog] 0 unit SQ ASDIR PRN 06/01/18 [place]-3 Fatty Acids [[place]-3] 1,000 mg PO BID 06/01/18 Sacubitril/Valsartan [Entresto 49 1 each PO BID 06/01/18 mg-51 mg Tablet] Clopidogrel Bisulfate [Plavix -] 75 mg PO DAILY 30 Days #0 tab 06/08/18 Active Medications Acetaminophen (Tylenol -) 650 mg PO Q4H PRN PRN Reason: FEVER Last Admin: 08/22/18 11:44 Dose: 650 mg Amlodipine Besylate (Norvasc -) 5 mg PO DAILY [facility] Last Admin: 08/24/18 09:33 Dose: Not Given Aspirin (Asa -) 81 mg PO DAILY [facility] Last Admin: 08/24/18 09:31 Dose: 81 mg Atorvastatin Calcium (Lipitor -) 80 mg PO [facility] Last Admin: 08/23/18 22:02 Dose: 80 mg Calcium Acetate (Phoslo -) 667 mg PO TIDCM [facility] Last Admin: 08/24/18 09:31 Dose: 667 mg Carvedilol (Coreg -) 25 mg PO BID [facility] Last Admin: 08/24/18 09:33 Dose: 25 mg Chlorhexidine Gluconate (Hibiclens For Decolonization -) 1 applic TP [facility] Last Admin: 08/23/18 22:00 Dose: 1 applic Clopidogrel Bisulfate (Plavix -) 75 mg PO DAILY [facility] Last Admin: 08/24/18 09:31 Dose: 75 mg Fluticasone Propionate (Flonase -) 1 spray NS BID [facility] Last Admin: 08/24/18 09:32 Dose: Not Given Gabapentin (Neurontin -) 600 mg PO TID [facility] Guaifenesin/Codeine Phosphate (Robitussin Ac -) 10 ml PO Q6H PRN PRN Reason: COUGH Last Admin: 08/24/18 05:48 Dose: 10 ml Heparin Sodium (Porcine) (Heparin -) 5,000 unit SQ TID [facility] Last Admin: 08/24/18 05:38 Dose: 5,000 unit Furosemide 100 mg/ Dextrose 100 mls @ 5 mls/hr IVPB TITR [facility]; Protocol Last Admin: 08/23/18 12:37 Dose: 5 mg/hr, 5 mls/hr Ceftriaxone Sodium 2 gm/ (Dextrose) 100 mls @ 200 mls/hr IVPB DAILY [facility]; Protocol Last Admin: 08/23/18 10:04 Dose: 200 mls/hr Insulin Aspart (Novolog Vial Sliding Scale -) 1 vial SQ HS [facility]; Protocol Last Admin: 08/23/18 23:20 Dose: Not Given Insulin Aspart (Novolog Vial Sliding Scale -) 1 vial SQ TIDAC [facility]; Protocol Last Admin: 08/24/18 06:02 Dose: Not Given Lactobacillus Acidophilus (Bacid -) 1 tab PO DAILY [facility] Last Admin: 08/24/18 09:31 Dose: 1 tab Mupirocin (Bactroban 2% Ointment -) 1 applic TP DAILY [facility] Last Admin: 08/24/18 09:31 Dose: 1 applic Mnoxg-5-Dpeh Ethyl Esters (Lovaza -) 2 gm PO BID [facility] Last Admin: 08/24/18 09:31 Dose: 2 gm Potassium Chloride (K-Dur -) 40 meq PO ONCE ONE Stop: 08/24/18 10:46 Ranitidine HCl (Zantac -) 150 mg PO BID [facility] Last Admin: 08/24/18 09:31 Dose: 150 mg Ranolazine (Ranexa -) 500 mg PO BID [facility] Last Admin: 08/24/18 09:31 Dose: 500 mg Sodium Chloride ([place] Nasal [place] -) 2 spray NS TID PRN PRN Reason: NASAL CONGESTION Last Admin: 08/21/18 21:50 Dose: 2 spray Laboratory Results - last 24 hr 08/22/18 08/24/18 08/24/18 05:15 05:15 05:15 WBC 6.4 RBC 2.87 L Hgb 8.4 L Hct 25.3 L MCV 87.9 MCH 29.4 MCHC 33.4 RDW 16.8 H Plt Count 297 MPV 6.9 L Absolute Neuts (auto) 4.8 Total Counted 100 Neutrophils % 74.3 Neutrophils % (Manual) 84.0 H Band Neutrophils % 1.0 Lymphocytes % 12.7 D Lymphocytes % (Manual) 11.0 Monocytes % 9.3 Monocytes % (Manual) 2 L Eosinophils % 3.1 Eosinophils % (Manual) 2.0 Basophils % 0.6 Nucleated RBC % 0 Sodium Potassium Chloride Carbon Dioxide Anion Gap BUN Creatinine Creat Clearance w eGFR Random Glucose Calcium Phosphorus Magnesium Random Vancomycin 16.1 L Lyme Screen IgG & IgM <0.91 08/24/18 05:15 WBC RBC Hgb Hct MCV MCH MCHC RDW Plt Count MPV Absolute Neuts (auto) Total Counted Neutrophils % Neutrophils % (Manual) Band Neutrophils % Lymphocytes % Lymphocytes % (Manual) Monocytes % Monocytes % (Manual) Eosinophils % Eosinophils % (Manual) Basophils % Nucleated RBC % Sodium 136 Potassium 4.0 Chloride 99 Carbon Dioxide 27 Anion Gap 10 BUN 100 H Creatinine 4.6 H Creat Clearance w eGFR 13.28 Random Glucose 141 H Calcium 8.0 L Phosphorus 6.4 H Magnesium 2.3 Random Vancomycin Lyme Screen IgG & IgM Microbiology 08/17/18 14:10 Blood - Peripheral Venous Blood Culture - Final NO GROWTH AFTER 5 DAYS INCUBATION 08/17/18 14:25 Blood - Peripheral Venous Blood Culture - Final NO GROWTH AFTER 5 DAYS INCUBATION 08/22/18 07:00 Stool Clostridium difficile Antigen (YEFRI) - Final 08/22/18 07:00 Stool Clostridium difficile Toxin Assay - Final 08/17/18 16:13 Urine - Urine Clean Catch Urine Culture - Final NO GROWTH OBTAINED Bone scan results pending ASSESSMENT AND PLAN: 57 yom with PMHx of ASHD, [place], S/P CABG, PCI/stent, ICD implant(2007), HTN, hypercholesterolemia, IDDM on insulin pump, CKD stage IV, gout and 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 -Septic shock, suspect from left toe infection, cellulitis, r/o osteomyelitis -Elevated troponin, NSTEMI vs Demand type II in the setting of above -Acute systolic heart failure exacerbation in the setting fluid resuscitation and [place] -Acute hypoxemic respiratory failure -NSVT/PVCs/Ventricular trigeminy -Thrombocytopenia, likely from sepsis -CAD s/p CABG, ICD -HTN -HLD -IDDM on insulin pump -CKD stage IV -Epistaxis Plan: Marked diuresis, respiratory status improved. Dobutamine drip d/charles on 08/23. Lasix drip, discuss with cardiology to change to Lasix BID as hemodynamics stable. Nephrology input appreciated. Strict I/Os and daily weights. ID input noted. s/p 4 days of meropenem, changed to Ceftriaxone day 3 (total abx day 7). s/p 6 days of vancomycin. D/charles per ID. Radiology called, follow up bone scan results. Cultures neg so far. Podiatry input noted, surgical plan pending bone scan. s/p Heparin drip for NSTEMI, d/charles after nose bleed, 2D echo noted. Needs cardiac risk stratification when improved, however, renal function limiting factor. Insulin pump resumed, reviewed blood sugar readings. patient with basal rate 2u/ hr and hadd additional bolus 20 units over last 24 hours. Continue to monitor BGM AC and HS. Endocrine input appreciated. ASA/plavix/ranexa/statin/clonidine/Coreg. less PVC/VT after coreg resumption. Plan discussed with patient, all questions answered. Care co-ordinated with ICU team Agree with transfer to telemetry. Total critical care time spent 36 min.
--- NOTE | 2018-08-24 11:30 | PN ---
Teaching Attending Note Name of Resident: Ramesh Rm ATTENDING PHYSICIAN STATEMENT I saw and evaluated the patient. I reviewed the resident's note and discussed the case with the resident. I agree with the resident's findings and plan as documented. SUBJECTIVE: Pt seen and examined in the ICU. More short of breath today despite being net negative yesterday. Creatinine rising today. OBJECTIVE: Vital Signs Period Temp Pulse Resp BP Sys/Gallo Pulse Ox Last 24 Hr 97.8 F-98.6 F 72-87 15-21 106-142/59-96 99-99 Intake & Output 08/21/18 08/22/18 08/23/18 08/24/18 23:59 23:59 23:59 23:59 Intake Total 2060.7 1487.6 1378 275 Output Total 5550 5700 4600 300 Balance -3489.3 -4212.4 -3222 -25 Weight 129.909 kg 128.9 kg Gen: mildly tachypneic with speaking Heart: RRR Lung: decreased breath sounds at the bases Abd: soft, nontender Ext: no edema, LLE dependent blister CBC, BMP 08/24/18 05:15 08/24/18 05:15 Active Medications Acetaminophen (Tylenol -) 650 mg PO Q4H PRN PRN Reason: FEVER Last Admin: 08/22/18 11:44 Dose: 650 mg Amlodipine Besylate (Norvasc -) 5 mg PO DAILY [facility] Last Admin: 08/24/18 09:33 Dose: Not Given Aspirin (Asa -) 81 mg PO DAILY [facility] Last Admin: 08/24/18 09:31 Dose: 81 mg Atorvastatin Calcium (Lipitor -) 80 mg PO HS [facility] Last Admin: 08/23/18 22:02 Dose: 80 mg Calcium Acetate (Phoslo -) 667 mg PO TIDCM [facility] Last Admin: 08/24/18 09:31 Dose: 667 mg Carvedilol (Coreg -) 25 mg PO BID [facility] Last Admin: 08/24/18 09:33 Dose: 25 mg Chlorhexidine Gluconate (Hibiclens For Decolonization -) 1 applic TP [facility] Last Admin: 08/23/18 22:00 Dose: 1 applic Clopidogrel Bisulfate (Plavix -) 75 mg PO DAILY [facility] Last Admin: 08/24/18 09:31 Dose: 75 mg Fluticasone Propionate (Flonase -) 1 spray NS BID [facility] Last Admin: 08/24/18 09:32 Dose: Not Given Gabapentin (Neurontin -) 600 mg PO TID [facility] Guaifenesin/Codeine Phosphate (Robitussin Ac -) 10 ml PO Q6H PRN PRN Reason: COUGH Last Admin: 08/24/18 05:48 Dose: 10 ml Heparin Sodium (Porcine) (Heparin -) 5,000 unit SQ TID [facility] Last Admin: 08/24/18 05:38 Dose: 5,000 unit Furosemide 100 mg/ Dextrose 100 mls @ 5 mls/hr IVPB TITR [facility]; Protocol Last Admin: 08/23/18 12:37 Dose: 5 mg/hr, 5 mls/hr Ceftriaxone Sodium 2 gm/ (Dextrose) 100 mls @ 200 mls/hr IVPB DAILY [facility]; Protocol Last Admin: 08/23/18 10:04 Dose: 200 mls/hr Insulin Aspart (Novolog Vial Sliding Scale -) 1 vial SQ HS [facility]; Protocol Last Admin: 08/23/18 23:20 Dose: Not Given Insulin Aspart (Novolog Vial Sliding Scale -) 1 vial SQ TIDAC [facility]; Protocol Last Admin: 08/24/18 06:02 Dose: Not Given Lactobacillus Acidophilus (Bacid -) 1 tab PO DAILY [facility] Last Admin: 08/24/18 09:31 Dose: 1 tab Mupirocin (Bactroban 2% Ointment -) 1 applic TP DAILY [facility] Last Admin: 08/24/18 09:31 Dose: 1 applic [id number] Ethyl Esters (Lovaza -) 2 gm PO BID [facility] Last Admin: 08/24/18 09:31 Dose: 2 gm Ranitidine HCl (Zantac -) 150 mg PO BID [facility] Last Admin: 08/24/18 09:31 Dose: 150 mg Ranolazine (Ranexa -) 500 mg PO BID [facility] Last Admin: 08/24/18 09:31 Dose: 500 mg Sodium Chloride ([place] Nasal [place] -) 2 spray NS TID PRN PRN Reason: NASAL CONGESTION Last Admin: 08/21/18 21:50 Dose: 2 spray ASSESSMENT AND PLAN: Acute on Chronic Systolic Heart Failure Acute NSTEMI CAD s/p CABG Acute on Chronic Renal Failure HTN DM Cellulitis - continue antibiotics - increase lasix gtt per cardiology - daily weights - keep net negative - hold entresto - ASA, plavix - beta sandee, statin - O2 to keep SpO2 >90% - can monitor on telemetry
--- NOTE | 2018-08-24 11:52 | PN ---
Progress Note (short form) - Note Progress Note: Feels better Still SOB Blood sugar better on Insulin pump Vital Signs Period Temp Pulse Resp BP Sys/Gallo Pulse Ox Last 24 Hr 97.8 F-98.6 F 72-87 15-21 106-142/59-96 99-99 PE: AOx3 Neck: Supple, HEENT: EOMI Lungs: cTA CVS: S1S2 Abd: Benign EXt: decreased erythema left 2nd toe Neuro: No focal deficit CMP Sodium 136 mmol/L (136-145) 08/24/18 05:15 Potassium 4.0 mmol/L (3.5-5.1) 08/24/18 05:15 Chloride 99 mmol/L (98-107) 08/24/18 05:15 Carbon Dioxide 27 mmol/L (21-32) 08/24/18 05:15 Anion Gap 10 MMOL/L (8-16) 08/24/18 05:15 BUN 100 mg/dL (7-18) H 08/24/18 05:15 Creatinine 4.6 mg/dL (0.55-1.3) H 08/24/18 05:15 Creat Clearance w eGFR 13.28 (>60) 08/24/18 05:15 POC Glucometer 302.09606 UNITS (80-120) 08/20/18 12:59 Random Glucose 141 mg/dL (74-106) H 08/24/18 05:15 Hemoglobin A1c % 6.0 % (4.2-6.3) 08/19/18 05:15 Lactic Acid 1.1 mmol/L (0.4-2.0) 08/17/18 20:20 Calcium 8.0 mg/dL (8.5-10.1) L 08/24/18 05:15 Phosphorus 6.4 mg/dL (2.5-4.9) H 08/24/18 05:15 Magnesium 2.3 mg/dL (1.8-2.4) 08/24/18 05:15 Total Bilirubin 0.5 mg/dL (0.2-1) 08/23/18 05:15 AST 21 U/L (15-37) 08/23/18 05:15 ALT 39 U/L (13-61) 08/23/18 05:15 Alkaline Phosphatase 84 U/L (45-117) 08/23/18 05:15 Creatine Kinase 402 IU/L (26-308) H 08/19/18 05:15 Creatine Kinase Index 2.8 % (0.0-5.0) 08/19/18 05:15 CK-MB (CK-2) 11.6 ng/mL (0.5-3.6) H 08/19/18 05:15 Troponin I 19.10 ng/ml (0.00-0.05) H* 08/19/18 05:15 B-Natriuretic Peptide 37774.6 pg/ml (5-125) H 08/20/18 05:30 Total Protein 6.6 g/dl (6.4-8.2) 08/23/18 05:15 Albumin 2.2 g/dl (3.4-5.0) L 08/23/18 05:15 Current Medications Generic Name Dose Route Start Last Admin Trade Name Freq PRN Reason Stop Dose Admin Acetaminophen 650 mg 08/17/18 18:08 08/22/18 11:44 Tylenol - PO 650 mg Q4H PRN Administration FEVER Amlodipine Besylate 5 mg 08/22/18 10:00 08/24/18 09:33 Norvasc - PO Not Given DAILY [facility] Aspirin 81 mg 08/18/18 10:00 08/24/18 09:31 Asa - PO 81 mg DAILY [facility] Administration Atorvastatin Calcium 80 mg 08/17/18 22:00 08/23/18 22:02 Lipitor - PO 80 mg HS [facility] Administration Calcium Acetate 667 mg 08/24/18 08:00 08/24/18 09:31 Phoslo - PO 667 mg TIDCM [facility] Administration Carvedilol 25 mg 08/18/18 22:00 08/24/18 09:33 Coreg - PO 25 mg BID [facility] Administration Chlorhexidine Gluconate 1 applic 08/17/18 22:00 08/23/18 22:00 Hibiclens For Decolonization - TP 1 applic HS [facility] Administration Clopidogrel Bisulfate 75 mg 08/18/18 10:00 08/24/18 09:31 Plavix - PO 75 mg DAILY [facility] Administration Fluticasone Propionate 1 spray 08/20/18 11:15 08/24/18 09:32 Flonase - NS Not Given BID [facility] Gabapentin 600 mg 08/24/18 09:04 Neurontin - PO TID [facility] Guaifenesin/Codeine Phosphate 10 ml 08/21/18 23:20 08/24/18 05:48 Robitussin Ac - PO 10 ml Q6H PRN Administration COUGH Heparin Sodium (Porcine) 5,000 unit 08/19/18 14:00 08/24/18 05:38 Heparin - SQ 5,000 unit TID [facility] Administration Furosemide 100 mg/ Dextrose 100 mls @ 5 mls/hr 08/21/18 09:45 08/23/18 12:37 IVPB 5 mg/hr TITR [facility] 5 mls/hr Administration Protocol 5 MG/HR Ceftriaxone Sodium 2 gm/ 100 mls @ 200 mls/hr 08/22/18 11:45 08/23/18 10:04 Dextrose IVPB 200 mls/hr DAILY [facility] Administration Protocol Insulin Aspart 1 vial 08/20/18 22:00 08/23/18 23:20 Novolog Vial Sliding Scale - SQ Not Given HS [facility] Protocol Insulin Aspart 1 vial 08/23/18 13:38 08/24/18 06:02 Novolog Vial Sliding Scale - SQ Not Given TIDAC [facility] Protocol Lactobacillus Acidophilus 1 tab 08/19/18 10:00 08/24/18 09:31 Bacid - PO 1 tab DAILY [facility] Administration Mupirocin 1 applic 08/20/18 10:00 08/24/18 09:31 Bactroban 2% Ointment - TP 1 applic DAILY [facility] Administration [id number] Ethyl Esters 2 gm 08/17/18 22:00 08/24/18 09:31 Lovaza - PO 2 gm BID [facility] Administration Ranitidine HCl 150 mg 08/17/18 22:00 08/24/18 09:31 Zantac - PO 150 mg BID [facility] Administration Ranolazine 500 mg 08/17/18 22:00 08/24/18 09:31 Ranexa - PO 500 mg BID [facility] Administration Sodium Chloride 2 spray 08/20/18 11:06 08/21/18 21:50 [place] Nasal [place] - NS 2 spray TID PRN Administration NASAL CONGESTION Left 2nd toe cellulitis: improving T2DM On Insulin pump at home CKD HLD CAD/Elevated Troponins: Probably secondary to demand ischemia CHF BGM Q ACHS and 3 AM On Insulin pump: Basal setting 12MN 1.6, 6 AM 2.0 and 6 PM 1.6 Bolus to be done via Insulin pump according to sliding scale in chart. IV abx Bone scan or MRI to R/O Osteo Will f/u
[2018-08-24] MEDS: CEFTRIAXONE 2 GM in DEXTROSE 5%-WATER 100 ML IVPB SCH (12:00)
[2018-08-24] MEDS ORDERED: PT OWN MED DRAWER 7, Y5N ONE ×2 (12:48→20:25)
[2018-08-24] MEDS: FUROSEMIDE INJECTION 100 MG in DEXTROSE 5%-WATER - 90 ML IVPB SCH (12:50)
--- NOTE | 2018-08-24 12:55 | PN ---
Progress Note (short form) - Note Progress Note: Podiatry F/U: Seen/evaluated at bedside NAD. Denies F/V/N/C/SOB/CP. AFebrile. Fevers have broken. Bone scan completed. LISA: L foot: pedal pulses 1/4, TG wnl, CFT brisk to all toes. There is a contracture of the second digit of the left foot. On the second digit, there is a superficial eschar at the distal tuft of the digit. There is a small superficial ulcer at the proximal nail fold of the second digit. The ulcer is granular in nature without purulent drainage, no fluctuance, no soft tissue crepitus, no signs of acute infection. Cellulitis to the second digit is resolving well. No tenderness to palpation. No ischemic changes to the second digit. Bone scan: (+) osteomyelitis left second digit Imp: 57 year old diabetic male with L second digit diabetic ulcer, osteomyelitis 1. IV abx per ID 2. Local wound care 3. Discussed treatment options at length with patient. Namely, second digit amputation versus treatment with IV abx. He wants to discuss with his and family. Will be on standby. Either way he will f/u in wound healing center with me for further management. Maged Burgos DPM
--- NOTE | 2018-08-24 15:25 | PN ---
Progress Note (short form) - Note Progress Note: Renal follow up for HECTOR on CKD Pt seen and examined in the ICU reports feeling more sob at this am but better now making urine, remains on lasix gtt no CP, but does have cough no fever or chills Vital Signs Temperature 98.0 F 08/24/18 14:00 Pulse Rate 64 08/24/18 14:00 Respiratory Rate 15 08/24/18 14:00 Blood Pressure 94/50 L 08/24/18 14:00 O2 Sat by Pulse Oximetry (%) 99 08/24/18 09:00 Intake & Output 08/21/18 08/22/18 08/23/18 08/24/18 23:59 23:59 23:59 23:59 Intake Total 2060.7 1487.6 1378 575 Output Total 5550 5700 4600 600 Balance -3489.3 -4212.4 -3222 -25 Weight 129.909 kg 128.9 kg NAD RRR CTA No Le edema CBC, BMP 08/24/18 05:15 08/24/18 05:15 Laboratory Tests 08/22/18 08/23/18 08/24/18 05:15 05:15 05:15 BUN 81 H 87 H 100 H Creatinine 4.4 H 4.1 H 4.6 H Laboratory Tests 08/24/18 05:15 Calcium 8.0 L Phosphorus 6.4 H Magnesium 2.3 Current Medications Acetaminophen (Tylenol -) 650 mg PO Q4H PRN PRN Reason: FEVER Last Admin: 08/22/18 11:44 Dose: 650 mg Amlodipine Besylate (Norvasc -) 5 mg PO DAILY [facility] Last Admin: 08/24/18 09:33 Dose: Not Given Aspirin (Asa -) 81 mg PO DAILY [facility] Last Admin: 08/24/18 09:31 Dose: 81 mg Atorvastatin Calcium (Lipitor -) 80 mg PO [facility] Last Admin: 08/23/18 22:02 Dose: 80 mg Calcium Acetate (Phoslo -) 667 mg PO TIDCM [facility] Last Admin: 08/24/18 12:02 Dose: 667 mg Carvedilol (Coreg -) 25 mg PO BID [facility] Last Admin: 08/24/18 09:33 Dose: 25 mg Chlorhexidine Gluconate (Hibiclens For Decolonization -) 1 applic TP [facility] Last Admin: 08/23/18 22:00 Dose: 1 applic Clopidogrel Bisulfate (Plavix -) 75 mg PO DAILY [facility] Last Admin: 08/24/18 09:31 Dose: 75 mg Fluticasone Propionate (Flonase -) 1 spray NS BID [facility] Last Admin: 08/24/18 09:32 Dose: Not Given Gabapentin (Neurontin -) 600 mg PO TID [facility] Last Admin: 08/24/18 14:11 Dose: 600 mg Guaifenesin/Codeine Phosphate (Robitussin Ac -) 10 ml PO Q6H PRN PRN Reason: COUGH Last Admin: 08/24/18 05:48 Dose: 10 ml Heparin Sodium (Porcine) (Heparin -) 5,000 unit SQ TID [facility] Last Admin: 08/24/18 14:11 Dose: 5,000 unit Furosemide 100 mg/ Dextrose 100 mls @ 5 mls/hr IVPB TITR [facility]; Protocol Last Admin: 08/24/18 12:50 Dose: 10 mg/hr, 10 mls/hr Ceftriaxone Sodium 2 gm/ (Dextrose) 100 mls @ 200 mls/hr IVPB DAILY [facility]; Protocol Last Admin: 08/24/18 12:00 Dose: 200 mls/hr Insulin Aspart (Novolog Vial Sliding Scale -) 1 vial SQ HS [facility]; Protocol Last Admin: 08/23/18 23:20 Dose: Not Given Insulin Aspart (Novolog Vial Sliding Scale -) 1 vial SQ TIDAC [facility]; Protocol Lactobacillus Acidophilus (Bacid -) 1 tab PO DAILY [facility] Last Admin: 08/24/18 09:31 Dose: 1 tab Mupirocin (Bactroban 2% Ointment -) 1 applic TP DAILY [facility] Last Admin: 08/24/18 09:31 Dose: 1 applic [id number]-[id number] Ethyl Esters (Lovaza -) 2 gm PO BID [facility] Last Admin: 08/24/18 09:31 Dose: 2 gm Ranitidine HCl (Zantac -) 150 mg PO BID [facility] Last Admin: 08/24/18 09:31 Dose: 150 mg Ranolazine (Ranexa -) 500 mg PO BID [facility] Last Admin: 08/24/18 09:31 Dose: 500 mg Sodium Chloride ([place] Nasal [place] -) 2 spray NS TID PRN PRN Reason: NASAL CONGESTION Last Admin: 08/21/18 21:50 Dose: 2 spray 57 year old gentleman with hx of 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 #HECTOR on CKD secondary to renal hypoprofuison in setting of sepsis vs. obstruction #Sepsis syndrome from soft tissue infection r/o bacteremia #NSTEMI vs. Demand ischemia #Acute on chronic anemia #Hx of Hypertension #Lactic acidosis now resolved #Hypocalcemia Cr jayshree to 4.6, BUN to 100 could be related to entresto or due to hypovolemia from lasix CXR w/o signs of infiltrate holding entresto today continue lasix gtt for now, if BUN/Cr continue to rise can consider holding as well Continue Abx as per primary pt to discuss with family regarding amputation. if BP remains marginal can hold amlodipine Jose Manuel Pendleton DO
[2018-08-24] MEDS ORDERED: SODIUM CHLORIDE NASAL SPRAY 44 ML BOTTLE NS PRN (20:52)
[2018-08-24] MEDS ORDERED: guaiFENesin/CODEINE 10 ML UNIT-DOSE CUPS PO PRN (20:52)
[2018-08-24] MEDS ORDERED: FUROSEMIDE INJECTION 100 MG in DEXTROSE 5%-WATER - 90 ML IVPB SCH (20:52)
[2018-08-24 21:26] LABS: ANION GAP 11 MMOL/L (8-16); BLOOD UREA NITROGEN 117 mg/dL (7-18); CHLORIDE 98 mmol/L (98-107); CO2 25 mmol/L (21-32); CREATININE 5.2 mg/dL (0.55-1.3); GLUCOSE,RANDOM 136 mg/dL (74-106); SODIUM 134 mmol/L (136-145)
[2018-08-24] MEDS ORDERED: CHLORHEXIDINE GLUCONATE 4% CLEANSER FOR DECOLONIZATION TP SCH (22:00)
[2018-08-24] MEDS: ATORVASTATIN CA 80 MG TABLET (FP) PO SCH (22:16)
[2018-08-24] MEDS: MUPIROCIN CA 2% TOPICAL CREAM 15 GM TUBE TP SCH (22:17)
[2018-08-25] MEDS: GABAPENTIN 300 MG CAPSULE (FP) PO SCH ×2 (06:38→15:21)
[2018-08-25] MEDS: INSULIN SLIDING SCALE (NOVOLOG) 1 VIAL SQ SCH ×4 (06:38→22:02)
[2018-08-25] MEDS: HEPARIN NA (PORCINE) 5,000 UNITS/ML 1ML VIAL SQ SCH ×3 (06:42→22:03)
[2018-08-25 07:47] LABS: BASO % 0.4 % (0-2.0); EOS % 1.9 % (0-4.5); HEMATOCRIT 26.6 % (35.4-49); HEMOGLOBIN 8.8 GM/dL (11.7-16.9); LYMPH % 12.3 % (8-40); MCH 29.5 pg (25.7-33.7); MCHC 33.2 g/dl (32.0-35.9); MEAN CELL VOLUME 88.8 fl (80-96); MONO % 8.6 % (3.8-10.2); NEUT % 76.8 % (42.8-82.8); PLATELET COUNT 366 K/MM3 (134-434); RBC 2.99 M/mm3 (4.00-5.60); RDW 16.5 % (11.9-15.9); WHITE BLOOD COUNT 8.1 K/mm3 (4.0-10.0)
[2018-08-25 08:20] LABS: ANION GAP 13 MMOL/L (8-16); CALCIUM 8.3 mg/dL (8.5-10.1); CHLORIDE 97 mmol/L (98-107); CO2 23 mmol/L (21-32); GLUCOSE,RANDOM 120 mg/dL (74-106); MAGNESIUM 2.7 mg/dL (1.8-2.4); PHOSPHOROUS 8.5 mg/dL (2.5-4.9); POTASSIUM 5.2 mmol/L (3.5-5.1); SODIUM 133 mmol/L (136-145)
[2018-08-25 08:33] LABS: BLOOD UREA NITROGEN 126 mg/dL (7-18)
--- NOTE | 2018-08-25 09:21 | PN ---
Physical Exam: SUBJECTIVE: Patient seen and examined at bed side this morning. Patient has been transferred from ICU to tele floor. States his breathing has improved. Still thinking about amputation of the toe vs continuing IV antibiotics. Patient reports he is worried that he will need HD. Patient counselled. No acute overnight events. used Bipap overnight. Off Lasix and dobutamine drip. OBJECTIVE: Vital Signs Period Temp Pulse Resp BP Sys/Gallo Pulse Ox Last 24 Hr 98.0 F-98.6 F 64-97 15-18 94-142/50-83 98-99 GENERAL: Morbidly obese male, lying in bed comfortably, patient is awake, alert , and fully oriented, in no acute distress, at 3L NC. EYES: EOM Intact, no pallor or icterus. ENT: Ears normal, moist mucous membranes. NECK: Supple, JVD + LUNGS: Bibasilar crackles improved. HEART: Regular rate and rhythm, S1, S2 with soft systolic murmur. ABDOMEN: Soft, nontender, no organomegaly. UPPER EXTREMITIES: 2+ pulses, warm, well-perfused, no edema. LOWER EXTREMITIES: Left second toe-erythema has improved, mildly tender to touch. B/L pitting edema improved. NEUROLOGICAL: No facial droop. Normal speech, gait not observed. PSYCH: Normal mood, normal affect. SKIN: Warm, dry, normal turgor, no rashes or lesions noted Laboratory Results - last 24 hr 08/21/18 08/24/18 08/24/18 14:46 20:30 20:52 WBC RBC Hgb Hct MCV MCH MCHC RDW Plt Count MPV Absolute Neuts (auto) Neutrophils % Lymphocytes % Monocytes % Eosinophils % Basophils % Nucleated RBC % Sodium 134 L Potassium 5.0 Chloride 98 Carbon Dioxide 25 Anion Gap 11 BUN 117 H* Creatinine 5.2 H Creat Clearance w eGFR 11.53 POC Glucometer 189 Random Glucose 136 H Calcium 8.0 L Phosphorus Magnesium Blood Type A POSITIVE Antibody Screen Negative Crossmatch See Detail 08/25/18 08/25/18 08/25/18 05:30 05:30 05:54 WBC 8.1 RBC 2.99 L Hgb 8.8 L Hct 26.6 L MCV 88.8 MCH 29.5 MCHC 33.2 RDW 16.5 H Plt Count 366 D MPV 7.0 L Absolute Neuts (auto) 6.2 Neutrophils % 76.8 Lymphocytes % 12.3 Monocytes % 8.6 Eosinophils % 1.9 Basophils % 0.4 Nucleated RBC % 0 Sodium 133 L Potassium 5.2 H Chloride 97 L Carbon Dioxide 23 Anion Gap 13 BUN 126 H* Creatinine 6.0 H Creat Clearance w eGFR 9.78 POC Glucometer 152 Random Glucose 120 H Calcium 8.3 L Phosphorus 8.5 H Magnesium 2.7 H Blood Type Antibody Screen Crossmatch Active Medications Generic Name Dose Route Start Last Admin Trade Name Freq PRN Reason Stop Dose Admin Acetaminophen 650 mg 08/24/18 20:52 Tylenol - PO Q4H PRN FEVER Amlodipine Besylate 5 mg 08/25/18 10:00 Norvasc - PO DAILY [facility] Aspirin 81 mg 08/25/18 10:00 Asa - PO DAILY [facility] Atorvastatin Calcium 80 mg 08/24/18 22:00 08/24/18 22:16 Lipitor - PO 80 mg HS [facility] Administration Calcium Acetate 1,334 mg 08/24/18 17:30 08/24/18 17:06 Phoslo - PO 1,334 mg TIDCM [facility] Administration Carvedilol 25 mg 08/24/18 22:00 08/24/18 22:16 Coreg - PO 25 mg BID [facility] Administration Clopidogrel Bisulfate 75 mg 08/25/18 10:00 Plavix - PO DAILY [facility] Fluticasone Propionate 1 spray 08/24/18 22:00 08/24/18 22:26 Flonase - NS Not Given BID [facility] Gabapentin 600 mg 08/24/18 09:04 08/25/18 06:38 Neurontin - PO 600 mg TID [facility] Administration Guaifenesin/Codeine Phosphate 10 ml 08/24/18 20:52 Robitussin Ac - PO Q6H PRN COUGH Heparin Sodium (Porcine) 5,000 unit 08/24/18 22:00 08/25/18 06:42 Heparin - SQ 5,000 unit TID [facility] Administration Ceftriaxone Sodium 2 gm/ 100 mls @ 200 mls/hr 08/25/18 10:00 Dextrose IVPB DAILY [facility] Protocol Insulin Aspart 1 vial 08/24/18 11:52 08/25/18 06:38 Novolog Vial Sliding Scale - SQ Not Given TIDAC [facility] Protocol Insulin Aspart 1 vial 08/24/18 22:00 08/24/18 22:07 Novolog Vial Sliding Scale - SQ Not Given HS [facility] Protocol Lactobacillus Acidophilus 1 tab 08/25/18 10:00 Bacid - PO DAILY [facility] Mupirocin 1 applic 08/24/18 22:00 08/24/18 22:17 Bactroban 2% Cream - TP 1 applic BID [facility] Administration Kkfzi-8-Vefa Ethyl Esters 2 gm 08/24/18 22:00 08/24/18 22:16 Lovaza - PO 2 gm BID [facility] Administration Ranitidine HCl 150 mg 08/24/18 22:00 08/24/18 22:16 Zantac - PO 150 mg BID [facility] Administration Ranolazine 500 mg 08/24/18 22:00 08/24/18 22:16 Ranexa - PO 500 mg BID [facility] Administration Sodium Chloride 2 spray 08/24/18 20:52 [place] Nasal [place] - NS TID PRN NASAL CONGESTION ASSESSMENT/PLAN: ECHO 08/18/18: Left ventricular size, thickness, function normal. Left atrium and right atrium mildly dilated. Moderate Aortic stenosis. Trace TR. Right ventricular systolic pressure 40-50 mmHg. Left toe xray-No acute pathology. 08/23/18 bone scan: Increased blood flow, blood pool an delayed activity in the region of the left second toe suspicious for osteomyelitis 08/24/18: Shallow inspiration, cardiomegaly, no evidence of pneumonia, CHF 08/25/17 CXR: No evidence of vascular congestive changes, pulmonary infiltrates, pneumothorax or pleural effusion. ASSESSMENT/PLAN: Patient is a 57 year old male with significant PMHx IDDM (on insulin pump), HTN , HLD, CAD s/p CABG and s/p AICD, CHF, Aortic stenosis, CKD, p/w fever, rigors, malaise x 1 day, admitted to ICU for NSTEMI and sepsis. # Left second digit -suspicion for osteomyelitis Bone scan done 08/23/18, reports suspicious for osteomyelitis. Podiatry consulted, recommended either amputation or IV antibiotics Patient hasn't decided yet. For now continue IV Ceftriaxone 2gm daily. Random vanc 16.1 08/24/18 # Volume overload likely from acute on chronic systolic dysfunction and CKD- improving Off IV Lasix drip and dobutamine. Diaz in place, Urinary output 600/24 hrs, continue to monitor. Not on lasix as creatinine is getting worse. Daily weight. 293-->286 lbs--> 281 lbs today. # NSTEMI: trops trending down. Continue Statin 80 mg HS Continue Aspirin 81 mg/Plavix Echo reviewed. Report as above Cardiology on board. # HECTOR on CKD likely secondary to hypoperfusion from Sepsis Creatiine 4.4--> 4.2-->4.1--> 6 , off lasix Phosphorus and Mg high. Would consider starting of sevelamer, will discuss with Dr. Pendleton. Avoid nephrotoxic drugs Renal on board # HTN-controlled now resume COreg 25 mg PO BID # DM Using Insulin pump. Blood sugar better controlled Appreciate Endocrinology consult. Bolus to be given via Insulin pump Watch for hypoglycemic episodes # FEN Not on IV fluids. Electrolytes to be repeated in AM. Diabetic diet # Prophylaxis For DVT: On Heparin sq TID For GI: Ranitidine 150 mg BID # Code Status: Full Code # Dispo: Now in Tele/continuous cardiac monitoring. Illness, Investigation and Plan of care explained to the patient. He verbalized understanding. Case discussed with Dr. Levy.. Visit type - Emergency Visit Emergency Visit: Yes ED Registration Date: 08/17/18 Care time: The patient presented to the Emergency Department on the above date and was hospitalized for further evaluation of their emergent condition. - New Patient This patient is new to me today: No - Critical Care Critical Care patient: No - Discharge Referral Referred to [facility] No
[2018-08-25] MEDS ORDERED: amLODIPine BESYLATE 5 MG TABLET (FP) PO SCH ×2 (10:00)
[2018-08-25] MEDS ORDERED: MUPIROCIN 2% TOPICAL OINTMENT 22 GM TUBE TP SCH (10:00)
[2018-08-25] MEDS ORDERED: DEXTROSE 5%-WATER 100 ML IVPB ONE (10:12)
[2018-08-25] MEDS: RANOLAZINE E.R. 500 MG TABLET (FP) PO SCH ×2 (10:40→22:03)
[2018-08-25] MEDS: LACTOBACILLUS ACIDOPHILUS 1 TABLET PO SCH (10:40)
[2018-08-25] MEDS: OMEGA-3 ACID ETHYL ESTERS (FATTY-ACIDS) 1 GM CAPSULE (FP) PO SCH ×2 (10:40→22:03)
[2018-08-25] MEDS: CARVEDILOL 25 MG TABLET (FP) PO SCH ×2 (10:41→22:03)
[2018-08-25] MEDS: ASPIRIN 81 MG CHEWABLE TABLETS PO SCH (10:41)
[2018-08-25] MEDS: RANITIDINE HCL 150 MG TABLET (FP) PO SCH ×2 (10:42→22:03)
[2018-08-25] MEDS: CALCIUM ACETATE 667 MG CAPSULE (FP) PO SCH ×3 (10:42→18:05)
[2018-08-25] MEDS: CLOPIDOGREL BISULFATE 75 MG TABLET (FP) PO SCH (10:43)
[2018-08-25] MEDS: CEFTRIAXONE 2 GM in DEXTROSE 5%-WATER 100 ML IVPB SCH (10:44)
[2018-08-25] MEDS: MUPIROCIN CA 2% TOPICAL CREAM 15 GM TUBE TP SCH ×2 (11:07→22:09)
[2018-08-25] MEDS: FLUTICASONE PROP 0.05% 16 GM NASAL SPRAY NS SCH ×2 (11:08→22:02)
--- NOTE | 2018-08-25 11:16 | PN ---
Progress Note, Physician History of Present Illness: pulmonary alert,comfortable,less dyspneic - Current Medication List Current Medications: Active Medications Acetaminophen (Tylenol -) 650 mg PO Q4H PRN PRN Reason: FEVER Amlodipine Besylate (Norvasc -) 5 mg PO DAILY [facility] Last Admin: 08/25/18 10:43 Dose: 5 mg Aspirin (Asa -) 81 mg PO DAILY [facility] Last Admin: 08/25/18 10:41 Dose: 81 mg Atorvastatin Calcium (Lipitor -) 80 mg PO HS [facility] Last Admin: 08/24/18 22:16 Dose: 80 mg Calcium Acetate (Phoslo -) 1,334 mg PO TIDCM [facility] Last Admin: 08/25/18 10:42 Dose: 1,334 mg Carvedilol (Coreg -) 25 mg PO BID [facility] Last Admin: 08/25/18 10:41 Dose: 25 mg Clopidogrel Bisulfate (Plavix -) 75 mg PO DAILY [facility] Last Admin: 08/25/18 10:43 Dose: 75 mg Fluticasone Propionate (Flonase -) 1 spray NS BID [facility] Last Admin: 08/25/18 11:08 Dose: Not Given Gabapentin (Neurontin -) 600 mg PO TID [facility] Last Admin: 08/25/18 06:38 Dose: 600 mg Guaifenesin/Codeine Phosphate (Robitussin Ac -) 10 ml PO Q6H PRN PRN Reason: COUGH Heparin Sodium (Porcine) (Heparin -) 5,000 unit SQ TID [facility] Last Admin: 08/25/18 06:42 Dose: 5,000 unit Ceftriaxone Sodium 2 gm/ (Dextrose) 100 mls @ 200 mls/hr IVPB DAILY [facility]; Protocol Last Admin: 08/25/18 10:44 Dose: 200 mls/hr Insulin Aspart (Novolog Vial Sliding Scale -) 1 vial SQ TIDAC [facility]; Protocol Last Admin: 08/25/18 06:38 Dose: Not Given Insulin Aspart (Novolog Vial Sliding Scale -) 1 vial SQ HS [facility]; Protocol Last Admin: 08/24/18 22:07 Dose: Not Given Lactobacillus Acidophilus (Bacid -) 1 tab PO DAILY [facility] Last Admin: 08/25/18 10:40 Dose: 1 tab Mupirocin (Bactroban 2% Cream -) 1 applic TP BID [facility] Last Admin: 08/25/18 11:07 Dose: 1 applic [id number]-[id number] Ethyl Esters (Lovaza -) 2 gm PO BID [facility] Last Admin: 08/25/18 10:40 Dose: 2 gm Ranitidine HCl (Zantac -) 150 mg PO BID [facility] Last Admin: 08/25/18 10:42 Dose: 150 mg Ranolazine (Ranexa -) 500 mg PO BID [facility] Last Admin: 08/25/18 10:40 Dose: 500 mg Sodium Chloride ([place] Nasal [place] -) 2 spray NS TID PRN PRN Reason: NASAL CONGESTION - Objective Vital Signs: Vital Signs Temperature 98 F 08/25/18 09:00 Pulse Rate 68 08/25/18 09:00 Respiratory Rate 20 08/25/18 09:00 Blood Pressure 116/65 08/25/18 09:00 O2 Sat by Pulse Oximetry (%) 98 08/25/18 00:09 Constitutional: Yes: Well Nourished, Calm, Obese Eyes: Yes: WNL HENT: Yes: WNL Neck: Yes: WNL Cardiovascular: Yes: Regular Rate and Rhythm, S1, S2 Respiratory: Yes: Diminished Gastrointestinal: Yes: Normal Bowel Sounds, Soft Extremities: Yes: WNL Edema: No Labs: CBC, BMP 08/25/18 05:30 08/25/18 05:30 INR, PTT INR 1.23 (0.83-1.09) H 08/18/18 08:05 Problem List - Problems (1) NSTEMI (non-ST elevated myocardial infarction) Code(s): I21.4 - NON-ST ELEVATION (NSTEMI) MYOCARDIAL INFARCTION (2) Sepsis Code(s): A41.9 - SEPSIS, UNSPECIFIED ORGANISM Qualifiers: Sepsis type: sepsis due to unspecified organism Qualified Code(s): A41.9 - Sepsis, unspecified organism (3) Troponin I above reference range Code(s): R74.8 - ABNORMAL LEVELS OF OTHER SERUM ENZYMES (4) Acute on chronic kidney failure Code(s): N17.9 - ACUTE KIDNEY FAILURE, UNSPECIFIED; N18.9 - CHRONIC KIDNEY DISEASE, UNSPECIFIED Qualifiers: Acute renal failure type: unspecified Chronic kidney disease stage: unspecified stage Qualified Code(s): N17.9 - Acute kidney failure, unspecified ; N18.9 - Chronic kidney disease, unspecified (5) Acute on chronic systolic (congestive) heart failure Code(s): I50.23 - ACUTE ON CHRONIC SYSTOLIC (CONGESTIVE) HEART FAILURE (6) Anemia Code(s): D64.9 - ANEMIA, UNSPECIFIED Qualifiers: Anemia type: unspecified type Qualified Code(s): D64.9 - Anemia, unspecified (7) Aortic valve stenosis Code(s): I35.0 - NONRHEUMATIC AORTIC (VALVE) STENOSIS Qualifiers: Cardiac valve disease etiology: nonrheumatic Qualified Code(s): I35.0 - Nonrheumatic aortic (valve) stenosis (8) CAD (coronary artery disease) Code(s): I25.10 - ATHSCL HEART DISEASE OF [place] CORONARY ARTERY W/O ANG PCTRS Qualifiers: Coronary Disease-Associated Artery/Lesion type: [place] artery [place] vs. transplanted heart: [place] heart Associated angina: without angina Qualified Code(s): I25.10 - Atherosclerotic heart disease of [place] coronary artery without angina pectoris (9) CKD stage 4 due to type 2 diabetes mellitus Code(s): E11.22 - TYPE 2 DIABETES MELLITUS W DIABETIC CHRONIC KIDNEY DISEASE; N18.4 - CHRONIC KIDNEY DISEASE, STAGE 4 (SEVERE) (10) History of coronary artery stent placement Code(s): Z95.5 - PRESENCE OF CORONARY ANGIOPLASTY IMPLANT AND GRAFT (11) Hx of CABG Code(s): Z95.1 - PRESENCE OF AORTOCORONARY BYPASS GRAFT (12) ICD (implantable cardioverter-defibrillator) in place Code(s): Z95.810 - PRESENCE OF AUTOMATIC (IMPLANTABLE) CARDIAC DEFIBRILLATOR Assessment/Plan ASSESSMENT AND PLAN: Acute on Chronic Systolic Heart Failure Acute NSTEMI CAD s/p CABG Acute on Chronic Renal Failure HTN DM Cellulitis Anemia - antibiotics - daily weights - keep net negative - ASA, plavix - beta sandee, statin - O2 to keep SpO2 >90% - monitor lytes,renal function,h+h DR PRIETO
--- NOTE | 2018-08-25 11:39 | PN ---
Progress Note (short form) - Note Progress Note: Feels better Still SOB Blood sugar better on Insulin pump Vital Signs Period Temp Pulse Resp BP Sys/Gallo Pulse Ox Last 24 Hr 98 F-98.6 F 64-97 15-20 94-142/50-83 98-99 PE: AOx3 Neck: Supple, HEENT: EOMI Lungs: cTA CVS: S1S2 Abd: Benign EXt: slight erythema left 2nd toe Neuro: No focal deficit CMP Sodium 133 mmol/L (136-145) L 08/25/18 05:30 Potassium 5.2 mmol/L (3.5-5.1) H 08/25/18 05:30 Chloride 97 mmol/L (98-107) L 08/25/18 05:30 Carbon Dioxide 23 mmol/L (21-32) 08/25/18 05:30 Anion Gap 13 MMOL/L (8-16) 08/25/18 05:30 BUN 126 mg/dL (7-18) H* 08/25/18 05:30 Creatinine 6.0 mg/dL (0.55-1.3) H 08/25/18 05:30 Creat Clearance w eGFR 9.78 (>60) 08/25/18 05:30 POC Glucometer 152 UNITS (80-120) 08/25/18 05:54 Random Glucose 120 mg/dL (74-106) H 08/25/18 05:30 Hemoglobin A1c % 6.0 % (4.2-6.3) 08/19/18 05:15 Lactic Acid 1.1 mmol/L (0.4-2.0) 08/17/18 20:20 Calcium 8.3 mg/dL (8.5-10.1) L 08/25/18 05:30 Phosphorus 8.5 mg/dL (2.5-4.9) H 08/25/18 05:30 Magnesium 2.7 mg/dL (1.8-2.4) H 08/25/18 05:30 Total Bilirubin 0.5 mg/dL (0.2-1) 08/23/18 05:15 AST 21 U/L (15-37) 08/23/18 05:15 ALT 39 U/L (13-61) 08/23/18 05:15 Alkaline Phosphatase 84 U/L (45-117) 08/23/18 05:15 Creatine Kinase 402 IU/L (26-308) H 08/19/18 05:15 Creatine Kinase Index 2.8 % (0.0-5.0) 08/19/18 05:15 CK-MB (CK-2) 11.6 ng/mL (0.5-3.6) H 08/19/18 05:15 Troponin I 19.10 ng/ml (0.00-0.05) H* 08/19/18 05:15 B-Natriuretic Peptide 99442.6 pg/ml (5-125) H 08/20/18 05:30 Total Protein 6.6 g/dl (6.4-8.2) 08/23/18 05:15 Albumin 2.2 g/dl (3.4-5.0) L 08/23/18 05:15 Current Medications Generic Name Dose Route Start Last Admin Trade Name Freq PRN Reason Stop Dose Admin Acetaminophen 650 mg 08/24/18 20:52 Tylenol - PO Q4H PRN FEVER Amlodipine Besylate 5 mg 08/25/18 10:00 08/25/18 10:43 Norvasc - PO 5 mg DAILY [facility] Administration Aspirin 81 mg 08/25/18 10:00 08/25/18 10:41 Asa - PO 81 mg DAILY [facility] Administration Atorvastatin Calcium 80 mg 08/24/18 22:00 08/24/18 22:16 Lipitor - PO 80 mg HS [facility] Administration Calcium Acetate 1,334 mg 08/24/18 17:30 08/25/18 10:42 Phoslo - PO 1,334 mg TIDCM [facility] Administration Carvedilol 25 mg 08/24/18 22:00 08/25/18 10:41 Coreg - PO 25 mg BID [facility] Administration Clopidogrel Bisulfate 75 mg 08/25/18 10:00 08/25/18 10:43 Plavix - PO 75 mg DAILY [facility] Administration Fluticasone Propionate 1 spray 08/24/18 22:00 08/25/18 11:08 Flonase - NS Not Given BID [facility] Gabapentin 600 mg 08/24/18 09:04 08/25/18 06:38 Neurontin - PO 600 mg TID [facility] Administration Guaifenesin/Codeine Phosphate 10 ml 08/24/18 20:52 Robitussin Ac - PO Q6H PRN COUGH Heparin Sodium (Porcine) 5,000 unit 08/24/18 22:00 08/25/18 06:42 Heparin - SQ 5,000 unit TID [facility] Administration Ceftriaxone Sodium 2 gm/ 100 mls @ 200 mls/hr 08/25/18 10:00 08/25/18 10:44 Dextrose IVPB 200 mls/hr DAILY [facility] Administration Protocol Insulin Aspart 1 vial 08/24/18 11:52 08/25/18 06:38 Novolog Vial Sliding Scale - SQ Not Given TIDAC [facility] Protocol Insulin Aspart 1 vial 08/24/18 22:00 08/24/18 22:07 Novolog Vial Sliding Scale - SQ Not Given HS [facility] Protocol Lactobacillus Acidophilus 1 tab 08/25/18 10:00 08/25/18 10:40 Bacid - PO 1 tab DAILY [facility] Administration Mupirocin 1 applic 08/24/18 22:00 08/25/18 11:07 Bactroban 2% Cream - TP 1 applic BID [facility] Administration Ivnle-6-Sdox Ethyl Esters 2 gm 08/24/18 22:00 08/25/18 10:40 Lovaza - PO 2 gm BID [facility] Administration Ranitidine HCl 150 mg 08/24/18 22:00 08/25/18 10:42 Zantac - PO 150 mg BID [facility] Administration Ranolazine 500 mg 08/24/18 22:00 08/25/18 10:40 Ranexa - PO 500 mg BID [facility] Administration Sodium Chloride 2 spray 08/24/18 20:52 [place] Nasal [place] - NS TID PRN NASAL CONGESTION AP: Left 2nd toe cellulitis: improving Osteomyelitis: Bone scan suspicious for osteo left 2nd toe T2DM On Insulin pump at home HECTOR on CKD HLD CAD/Elevated Troponins: Probably secondary to demand ischemia CHF BGM Q ACHS and 3 AM On Insulin pump: Basal setting 12MN 1.6, 6 AM 2.0 and 6 PM 1.6 Bolus to be done via Insulin pump according to sliding scale in chart. IV abx vs Amputation of left 2nd toe Will f/u
--- NOTE | 2018-08-25 11:55 | PN ---
Progress Note, Physician History of Present Illness: Denies orthopnea and dyspnea after diuresis which has been held due to acute on ckd. - Current Medication List Current Medications: Active Medications Acetaminophen (Tylenol -) 650 mg PO Q4H PRN PRN Reason: FEVER Amlodipine Besylate (Norvasc -) 5 mg PO DAILY [facility] Last Admin: 08/25/18 10:43 Dose: 5 mg Aspirin (Asa -) 81 mg PO DAILY [facility] Last Admin: 08/25/18 10:41 Dose: 81 mg Atorvastatin Calcium (Lipitor -) 80 mg PO HS [facility] Last Admin: 08/24/18 22:16 Dose: 80 mg Calcium Acetate (Phoslo -) 1,334 mg PO TIDCM [facility] Last Admin: 08/25/18 10:42 Dose: 1,334 mg Carvedilol (Coreg -) 25 mg PO BID [facility] Last Admin: 08/25/18 10:41 Dose: 25 mg Clopidogrel Bisulfate (Plavix -) 75 mg PO DAILY [facility] Last Admin: 08/25/18 10:43 Dose: 75 mg Fluticasone Propionate (Flonase -) 1 spray NS BID [facility] Last Admin: 08/25/18 11:08 Dose: Not Given Gabapentin (Neurontin -) 600 mg PO TID [facility] Last Admin: 08/25/18 06:38 Dose: 600 mg Guaifenesin/Codeine Phosphate (Robitussin Ac -) 10 ml PO Q6H PRN PRN Reason: COUGH Heparin Sodium (Porcine) (Heparin -) 5,000 unit SQ TID [facility] Last Admin: 08/25/18 06:42 Dose: 5,000 unit Ceftriaxone Sodium 2 gm/ (Dextrose) 100 mls @ 200 mls/hr IVPB DAILY [facility]; Protocol Last Admin: 08/25/18 10:44 Dose: 200 mls/hr Insulin Aspart (Novolog Vial Sliding Scale -) 1 vial SQ TIDAC [facility]; Protocol Last Admin: 08/25/18 06:38 Dose: Not Given Insulin Aspart (Novolog Vial Sliding Scale -) 1 vial SQ HS [facility]; Protocol Last Admin: 08/24/18 22:07 Dose: Not Given Lactobacillus Acidophilus (Bacid -) 1 tab PO DAILY [facility] Last Admin: 08/25/18 10:40 Dose: 1 tab Mupirocin (Bactroban 2% Cream -) 1 applic TP BID [facility] Last Admin: 08/25/18 11:07 Dose: 1 applic [id number] Ethyl Esters (Lovaza -) 2 gm PO BID [facility] Last Admin: 08/25/18 10:40 Dose: 2 gm Ranitidine HCl (Zantac -) 150 mg PO BID [facility] Last Admin: 08/25/18 10:42 Dose: 150 mg Ranolazine (Ranexa -) 500 mg PO BID [facility] Last Admin: 08/25/18 10:40 Dose: 500 mg Sodium Chloride ([place] Nasal [place] -) 2 spray NS TID PRN PRN Reason: NASAL CONGESTION - Objective Vital Signs: Vital Signs Temperature 98 F 08/25/18 09:00 Pulse Rate 68 08/25/18 09:00 Respiratory Rate 20 08/25/18 09:00 Blood Pressure 116/65 08/25/18 09:00 O2 Sat by Pulse Oximetry (%) 98 08/25/18 00:09 Constitutional: Yes: No Distress, Calm Neck: Yes: Supple Cardiovascular: Yes: Regular Rate and Rhythm Respiratory: Yes: Regular, Diminished, On Nasal O2 Gastrointestinal: Yes: Normal Bowel Sounds, Soft, Abdomen, Obese Edema: No Labs: CBC, BMP 08/25/18 05:30 08/25/18 05:30 INR, PTT INR 1.23 (0.83-1.09) H 08/18/18 08:05 - ....Imaging Chest X-ray: Report Reviewed (NAD) Problem List - Problems (1) NSTEMI (non-ST elevated myocardial infarction) Code(s): I21.4 - NON-ST ELEVATION (NSTEMI) MYOCARDIAL INFARCTION (2) Sepsis Code(s): A41.9 - SEPSIS, UNSPECIFIED ORGANISM Qualifiers: Sepsis type: sepsis due to unspecified organism Qualified Code(s): A41.9 - Sepsis, unspecified organism (3) Acute on chronic kidney failure Code(s): N17.9 - ACUTE KIDNEY FAILURE, UNSPECIFIED; N18.9 - CHRONIC KIDNEY DISEASE, UNSPECIFIED Qualifiers: Acute renal failure type: unspecified Chronic kidney disease stage: unspecified stage Qualified Code(s): N17.9 - Acute kidney failure, unspecified ; N18.9 - Chronic kidney disease, unspecified (4) Acute on chronic systolic (congestive) heart failure Code(s): I50.23 - ACUTE ON CHRONIC SYSTOLIC (CONGESTIVE) HEART FAILURE (5) Dyspnea due to congestive heart failure Code(s): I50.9 - HEART FAILURE, UNSPECIFIED (6) Elevated troponin Code(s): R79.89 - OTHER SPECIFIED ABNORMAL FINDINGS OF BLOOD CHEMISTRY (7) HLD (hyperlipidemia) Code(s): E78.5 - HYPERLIPIDEMIA, UNSPECIFIED Qualifiers: Hyperlipidemia type: pure hypercholesterolemia Qualified Code(s): E78.00 - Pure hypercholesterolemia, unspecified (8) HTN (hypertension) Code(s): I10 - ESSENTIAL (PRIMARY) HYPERTENSION Qualifiers: Hypertension type: essential hypertension Qualified Code(s): I10 - Essential (primary) hypertension (9) History of coronary artery stent placement Code(s): Z95.5 - PRESENCE OF CORONARY ANGIOPLASTY IMPLANT AND GRAFT (10) Hx of CABG Code(s): Z95.1 - PRESENCE OF AORTOCORONARY BYPASS GRAFT (11) ICD (implantable cardioverter-defibrillator) in place Code(s): Z95.810 - PRESENCE OF AUTOMATIC (IMPLANTABLE) CARDIAC DEFIBRILLATOR (12) Systolic heart failure Code(s): I50.20 - UNSPECIFIED SYSTOLIC (CONGESTIVE) HEART FAILURE Qualifiers: Heart failure chronicity: acute on chronic Qualified Code(s): I50.23 - Acute on chronic systolic (congestive) heart failure (13) Sleep apnea Code(s): G47.30 - SLEEP APNEA, UNSPECIFIED Qualifiers: Sleep apnea type: obstructive Qualified Code(s): G47.33 - Obstructive sleep apnea (adult) (pediatric) Assessment/Plan 08/18/2018 Echo: Poor windows 1. Acute on chronic class II-III NYHA classification LV failure related to LV systolic dysfunction, improving/resolving 2. CAD post TX/CABG, PCI/stent, demand ischemic injury history of an abnormal MPI study angina pectoris, plan for conservative medical management 3. Aortic stenosis, mild 4. HTN 5. IDDM 6. Hypercholesterolemia 7. Post prophylactic ICD implant, history of NSVT 8. Acute on CKD with hyperkalemia 9. Anemia post transfusion 10. Gout 11. Obstructive sleep apnea 12. Left leg cellulitis PLAN: 1. D/c Lasix drip with monitoring renal function and electrolytes 2. Off Dobutamine gtt 3. Continue Coreg 25 bid 4. Hold Entresto 26/26 bid pending renal function and hyperkalemia stabilization 5. Continue Ranexa 500 bid 6. Continue Norvasc 5 qd 7. Continue Lipitor 80 qhs and Lovaza 2 bid 8. Continue Plavix 75 qd and ASA 81 qd with caution in view of the above noted anemia, transfuse as needed to maintain Hg equal or > 8.0 9. Complete antibiotic course as per the primary team 10. As outlined in the prior note plan to pursue medical management and therapy optimization and deferring any invasive strategy in view of the above noted CKD with acute exacerbation 11. DVT prophylaxis
--- NOTE | 2018-08-25 12:17 | PN ---
Teaching Attending Note Name of Resident: Char Vera ATTENDING PHYSICIAN STATEMENT I saw and evaluated the patient. I reviewed the resident's note and discussed the case with the resident. I agree with the resident's findings and plan as documented. SUBJECTIVE: Mr Long denies cp, sob, n/v. OBJECTIVE: Last Vital Signs Temp Pulse Resp BP Pulse Ox 36.6 C 67 20 90/53 L 98 08/25/18 09:00 08/25/18 15:25 08/25/18 15:25 08/25/18 15:25 08/25/18 00:09 Gen: nad, morbidly obese Pulm: ctab w/o w/r/r CV: rrr w/o m/r/g Abd: +bs, s/nt/nd Ext: tremors, L foot wrapped CBC, BMP 08/25/18 05:30 08/25/18 05:30 ASSESSMENT AND PLAN: 1. HECTOR on CKD -case d/w Dr Pendleton and Dr Bertrand -holding nephrotoxic medications -encourage po intake -making urine -follow up creatinine 2. L foot osteomyelitis -seen by podiatry and ID -continue IV rocephin -patient discussing possibility of amputation 3. CHF -exacerbation this hospital stay -diuresed -currently off diuretics secondary to renal function -off entresto as well 4. Diabetes -continue current management 5. HTN -low normal -will stop amlodipine 5mg currently -continue coreg 6. HLD -continue lipitor 7. NSTEMI/CAD -cardiology following -case d/w Dr Bertrand -continue medical management 8. Morbid obesity -will need outpatient weight loss plan Problem List - Problems (1) Septic shock Code(s): A41.9 - SEPSIS, UNSPECIFIED ORGANISM; R65.21 - SEVERE SEPSIS WITH SEPTIC SHOCK (2) Cellulitis Code(s): L03.90 - CELLULITIS, UNSPECIFIED Qualifiers: Site of cellulitis: extremity Site of cellulitis of extremity: lower extremity Laterality: left Qualified Code(s): L03.116 - Cellulitis of left lower limb (3) NSTEMI (non-ST elevated myocardial infarction) Code(s): I21.4 - NON-ST ELEVATION (NSTEMI) MYOCARDIAL INFARCTION (4) CKD stage 4 due to type 2 diabetes mellitus Code(s): E11.22 - TYPE 2 DIABETES MELLITUS W DIABETIC CHRONIC KIDNEY DISEASE; N18.4 - CHRONIC KIDNEY DISEASE, STAGE 4 (SEVERE) (5) Diabetes mellitus Code(s): E11.9 - TYPE 2 DIABETES MELLITUS WITHOUT COMPLICATIONS Qualifiers: Diabetes mellitus type: type 2 Diabetes mellitus complication status: without complication (6) HLD (hyperlipidemia) Code(s): E78.5 - HYPERLIPIDEMIA, UNSPECIFIED Qualifiers: Hyperlipidemia type: pure hypercholesterolemia Qualified Code(s): E78.00 - Pure hypercholesterolemia, unspecified (7) HTN (hypertension) Code(s): I10 - ESSENTIAL (PRIMARY) HYPERTENSION Qualifiers: Hypertension type: essential hypertension Qualified Code(s): I10 - Essential (primary) hypertension (8) ICD (implantable cardioverter-defibrillator) in place Code(s): Z95.810 - PRESENCE OF AUTOMATIC (IMPLANTABLE) CARDIAC DEFIBRILLATOR (9) Systolic heart failure Code(s): I50.20 - UNSPECIFIED SYSTOLIC (CONGESTIVE) HEART FAILURE Qualifiers: Heart failure chronicity: acute on chronic Qualified Code(s): I50.23 - Acute on chronic systolic (congestive) heart failure
--- NOTE | 2018-08-25 12:29 | PN ---
Progress Note (short form) - Note Progress Note: Renal follow up for HECTOR on CKD Pt seen and examined at the bedside awake and alert reports some shaking/tremor of his hands reports being a little confused this am no N/V, lethargy, weakness making urine via joiner Vital Signs Temperature 98 F 08/25/18 09:00 Pulse Rate 68 08/25/18 09:00 Respiratory Rate 20 08/25/18 09:00 Blood Pressure 116/65 08/25/18 09:00 O2 Sat by Pulse Oximetry (%) 98 08/25/18 00:09 Intake & Output 08/22/18 08/23/18 08/24/18 08/25/18 23:59 23:59 23:59 23:59 Intake Total 1487.6 1378 1175 150 Output Total 5700 4600 600 400 Balance -4212.4 -3222 575 -250 Weight 129.909 kg 128.9 kg 127.459 kg NAD RRR CTA No Le edema CBC, BMP 08/25/18 05:30 08/25/18 05:30 Current Medications Acetaminophen (Tylenol -) 650 mg PO Q4H PRN PRN Reason: FEVER Amlodipine Besylate (Norvasc -) 5 mg PO DAILY [facility] Last Admin: 08/25/18 10:43 Dose: 5 mg Aspirin (Asa -) 81 mg PO DAILY [facility] Last Admin: 08/25/18 10:41 Dose: 81 mg Atorvastatin Calcium (Lipitor -) 80 mg PO HS [facility] Last Admin: 08/24/18 22:16 Dose: 80 mg Calcium Acetate (Phoslo -) 1,334 mg PO TIDCM [facility] Last Admin: 08/25/18 10:42 Dose: 1,334 mg Carvedilol (Coreg -) 25 mg PO BID [facility] Last Admin: 08/25/18 10:41 Dose: 25 mg Clopidogrel Bisulfate (Plavix -) 75 mg PO DAILY [facility] Last Admin: 08/25/18 10:43 Dose: 75 mg Fluticasone Propionate (Flonase -) 1 spray NS BID [facility] Last Admin: 08/25/18 11:08 Dose: Not Given Gabapentin (Neurontin -) 600 mg PO TID [facility] Last Admin: 08/25/18 06:38 Dose: 600 mg Guaifenesin/Codeine Phosphate (Robitussin Ac -) 10 ml PO Q6H PRN PRN Reason: COUGH Heparin Sodium (Porcine) (Heparin -) 5,000 unit SQ TID [facility] Last Admin: 08/25/18 06:42 Dose: 5,000 unit Ceftriaxone Sodium 2 gm/ (Dextrose) 100 mls @ 200 mls/hr IVPB DAILY [facility]; Protocol Last Admin: 08/25/18 10:44 Dose: 200 mls/hr Insulin Aspart (Novolog Vial Sliding Scale -) 1 vial SQ TIDAC [facility]; Protocol Last Admin: 08/25/18 06:38 Dose: Not Given Insulin Aspart (Novolog Vial Sliding Scale -) 1 vial SQ HS [facility]; Protocol Last Admin: 08/24/18 22:07 Dose: Not Given Lactobacillus Acidophilus (Bacid -) 1 tab PO DAILY [facility] Last Admin: 08/25/18 10:40 Dose: 1 tab Mupirocin (Bactroban 2% Cream -) 1 applic TP BID [facility] Last Admin: 08/25/18 11:07 Dose: 1 applic [id number] Ethyl Esters (Lovaza -) 2 gm PO BID [facility] Last Admin: 08/25/18 10:40 Dose: 2 gm Ranitidine HCl (Zantac -) 150 mg PO BID [facility] Last Admin: 08/25/18 10:42 Dose: 150 mg Ranolazine (Ranexa -) 500 mg PO BID [facility] Last Admin: 08/25/18 10:40 Dose: 500 mg Sodium Chloride ([place] Nasal [place] -) 2 spray NS TID PRN PRN Reason: NASAL CONGESTION 57 year old gentleman with hx of 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 #HECTOR on CKD now likely due to volume depletion in setting of diuretics + hemodyanic changes #Sepsis syndrome from soft tissue infection r/o bacteremia #NSTEMI #Acute on chronic anemia #Hx of Hypertension #Lactic acidosis now resolved #Hypocalcemia/Hyperphosphtatemia #Volume overload requiring IV diuresis now resolved Renal function worsening overt the past 72 hours Pt is non-oliguric and does not have overt electrolyte abnormalities or volume overload to warrant urgent HD has some tremor that could be related to uremia but will monitor for now now off Lasix gtt and entresto Monitor urine output and volume status very closely will hold off IVF so as to prevent volume overload Diet changed to Renal Continue Calcium acetate TID with meals Corrected Ca is WNL Continue Abx as per ID Repeat BMP this PM case discussed with Cardiology Jose Manuel Pendleton DO
[2018-08-25 18:13] LABS: ANION GAP 14 MMOL/L (8-16); CHLORIDE 97 mmol/L (98-107); CO2 21 mmol/L (21-32); CREATININE 6.7 mg/dL (0.55-1.3); GLUCOSE,RANDOM 168 mg/dL (74-106); POTASSIUM 5.2 mmol/L (3.5-5.1); SODIUM 132 mmol/L (136-145)
[2018-08-25 18:17] LABS: BLOOD UREA NITROGEN 129 mg/dL (7-18)
[2018-08-25] MEDS: ATORVASTATIN CA 80 MG TABLET (FP) PO SCH (22:03)
[2018-08-26] MEDS: INSULIN SLIDING SCALE (NOVOLOG) 1 VIAL SQ SCH ×4 (06:15→22:01)
[2018-08-26] MEDS: HEPARIN NA (PORCINE) 5,000 UNITS/ML 1ML VIAL SQ SCH ×3 (06:17→22:00)
[2018-08-26 07:41] LABS: HEMATOCRIT 25.6 % (35.4-49); HEMOGLOBIN 8.4 GM/dL (11.7-16.9); MCHC 32.8 g/dl (32.0-35.9); MEAN CELL VOLUME 88.4 fl (80-96); PLATELET COUNT 366 K/MM3 (134-434); RBC 2.89 M/mm3 (4.00-5.60); RDW 16.3 % (11.9-15.9); WHITE BLOOD COUNT 8.9 K/mm3 (4.0-10.0)
[2018-08-26 08:17] LABS: ANION GAP 14 MMOL/L (8-16); CALCIUM 7.9 mg/dL (8.5-10.1); CHLORIDE 95 mmol/L (98-107); CO2 21 mmol/L (21-32); MAGNESIUM 2.8 mg/dL (1.8-2.4); POTASSIUM 5.6 mmol/L (3.5-5.1); SODIUM 130 mmol/L (136-145)
[2018-08-26 09:14] LABS: BLOOD UREA NITROGEN 149 mg/dL (7-18); CREATININE 7.6 mg/dL (0.55-1.3); GLUCOSE,RANDOM 109 mg/dL (74-106); PHOSPHOROUS 10.1 mg/dL (2.5-4.9)
--- NOTE | 2018-08-26 09:37 | PN ---
Physical Exam: SUBJECTIVE: Patient seen and examined at bed side this morning. OBJECTIVE: Vital Signs Period Temp Pulse Resp BP Sys/Gallo Pulse Ox Last 24 Hr 97.8 F-98.2 F 62-69 19-20 90-129/53-74 98-99 GENERAL: Morbidly obese male, lying in bed comfortably, patient is awake, alert , and fully oriented but confused on/off, in no acute distress, at 3L NC. EYES: EOM Intact, no pallor or icterus. ENT: Ears normal, moist mucous membranes. NECK: Supple, JVD + LUNGS: Bibasilar crackles improved. HEART: Regular rate and rhythm, S1, S2 with soft systolic murmur. ABDOMEN: Soft, nontender, no organomegaly. UPPER EXTREMITIES: 2+ pulses, warm, well-perfused, no edema. LOWER EXTREMITIES: Left second toe-erythema has improved, mildly tender to touch. B/L pitting edema improved. NEUROLOGICAL: Asterexis ++ No facial droop. Normal speech, gait not observed. PSYCH: Normal mood, normal affect. SKIN: Warm, dry, normal turgor, no rashes or lesions noted Laboratory Results - last 24 hr 08/20/18 08/20/18 08/21/18 16:41 22:16 05:40 WBC RBC Hgb Hct MCV MCH MCHC RDW Plt Count MPV Sodium Potassium Chloride Carbon Dioxide Anion Gap BUN Creatinine Creat Clearance w eGFR POC Glucometer 329.08085 397.06984 327.53146 Random Glucose Calcium Phosphorus Magnesium 08/21/18 08/21/18 08/21/18 11:07 16:42 21:46 WBC RBC Hgb Hct MCV MCH MCHC RDW Plt Count MPV Sodium Potassium Chloride Carbon Dioxide Anion Gap BUN Creatinine Creat Clearance w eGFR POC Glucometer 331.85773 344.25281 269.72295 Random Glucose Calcium Phosphorus Magnesium 08/22/18 08/22/18 08/22/18 06:34 11:03 17:49 WBC RBC Hgb Hct MCV MCH MCHC RDW Plt Count MPV Sodium Potassium Chloride Carbon Dioxide Anion Gap BUN Creatinine Creat Clearance w eGFR POC Glucometer 377.15306 306.92034 355.70205 Random Glucose Calcium Phosphorus Magnesium 08/22/18 08/23/18 08/23/18 21:49 05:53 12:22 WBC RBC Hgb Hct MCV MCH MCHC RDW Plt Count MPV Sodium Potassium Chloride Carbon Dioxide Anion Gap BUN Creatinine Creat Clearance w eGFR POC Glucometer 313.32253 235.09221 222.29213 Random Glucose Calcium Phosphorus Magnesium 08/23/18 08/24/18 08/24/18 22:15 05:24 11:56 WBC RBC Hgb Hct MCV MCH MCHC RDW Plt Count MPV Sodium Potassium Chloride Carbon Dioxide Anion Gap BUN Creatinine Creat Clearance w eGFR POC Glucometer 214.08294 172.24715 160.90070 Random Glucose Calcium Phosphorus Magnesium 08/24/18 08/25/18 08/25/18 17:06 12:19 17:00 WBC RBC Hgb Hct MCV MCH MCHC RDW Plt Count MPV Sodium 132 L Potassium 5.2 H Chloride 97 L Carbon Dioxide 21 Anion Gap 14 BUN 129 H* Creatinine 6.7 H Creat Clearance w eGFR 8.61 POC Glucometer 131.98962 203 Random Glucose 168 H Calcium 8.0 L Phosphorus Magnesium 08/25/18 08/25/18 08/26/18 17:48 21:18 05:45 WBC 8.9 RBC 2.89 L Hgb 8.4 L Hct 25.6 L MCV 88.4 MCH 29.0 MCHC 32.8 RDW 16.3 H Plt Count 366 MPV 7.0 L Sodium Potassium Chloride Carbon Dioxide Anion Gap BUN Creatinine Creat Clearance w eGFR POC Glucometer 190 78 Random Glucose Calcium Phosphorus Magnesium 08/26/18 08/26/18 05:45 06:14 WBC RBC Hgb Hct MCV MCH MCHC RDW Plt Count MPV Sodium 130 L Potassium 5.6 H Chloride 95 L Carbon Dioxide 21 Anion Gap 14 BUN 149 H* Creatinine 7.6 H* Creat Clearance w eGFR 7.44 POC Glucometer 180 Random Glucose 109 H Calcium 7.9 L Phosphorus 10.1 H* Magnesium 2.8 H Active Medications Generic Name Dose Route Start Last Admin Trade Name Freq PRN Reason Stop Dose Admin Acetaminophen 650 mg 08/24/18 20:52 Tylenol - PO Q4H PRN FEVER Aspirin 81 mg 08/25/18 10:00 08/25/18 10:41 Asa - PO 81 mg DAILY [facility] Administration Atorvastatin Calcium 80 mg 08/24/18 22:00 08/25/18 22:03 Lipitor - PO 80 mg HS [facility] Administration Calcium Acetate 1,334 mg 08/24/18 17:30 08/25/18 18:05 Phoslo - PO 1,334 mg TIDCM [facility] Administration Carvedilol 25 mg 08/24/18 22:00 08/25/18 22:03 Coreg - PO 25 mg BID [facility] Administration Clopidogrel Bisulfate 75 mg 08/25/18 10:00 08/25/18 10:43 Plavix - PO 75 mg DAILY [facility] Administration Fluticasone Propionate 1 spray 08/24/18 22:00 08/25/18 22:02 Flonase - NS Not Given BID [facility] Heparin Sodium (Porcine) 5,000 unit 08/24/18 22:00 08/26/18 06:17 Heparin - SQ 5,000 unit TID [facility] Administration Ceftriaxone Sodium 2 gm/ 100 mls @ 200 mls/hr 08/25/18 10:00 08/25/18 10:44 Dextrose IVPB 200 mls/hr DAILY [facility] Administration Protocol Insulin Aspart 1 vial 08/24/18 11:52 08/26/18 06:15 Novolog Vial Sliding Scale - SQ Not Given TIDAC [facility] Protocol Insulin Aspart 1 vial 08/24/18 22:00 08/25/18 22:02 Novolog Vial Sliding Scale - SQ Not Given HS [facility] Protocol Lactobacillus Acidophilus 1 tab 08/25/18 10:00 08/25/18 10:40 Bacid - PO 1 tab DAILY [facility] Administration Mupirocin 1 applic 08/24/18 22:00 08/25/18 22:09 Bactroban 2% Cream - TP 1 applic BID [facility] Administration [id number]-[id number] Ethyl Esters 2 gm 08/24/18 22:00 08/25/18 22:03 Lovaza - PO 2 gm BID [facility] Administration Ranitidine HCl 150 mg 08/24/18 22:00 08/25/18 22:03 Zantac - PO 150 mg BID [facility] Administration Ranolazine 500 mg 08/24/18 22:00 08/25/18 22:03 Ranexa - PO 500 mg BID [facility] Administration Sodium Chloride 2 spray 08/24/18 20:52 [place] Nasal [place] - NS TID PRN NASAL CONGESTION Sodium Polystyrene Sulfonate 30 gm 08/26/18 09:09 Kayexalate - PO 08/26/18 09:10 ONCE ONE ECHO 08/18/18: Left ventricular size, thickness, function normal. Left atrium and right atrium mildly dilated. Moderate Aortic stenosis. Trace TR. Right ventricular systolic pressure 40-50 mmHg. Left toe xray-No acute pathology. 08/23/18 bone scan: Increased blood flow, blood pool an delayed activity in the region of the left second toe suspicious for osteomyelitis 08/24/18: Shallow inspiration, cardiomegaly, no evidence of pneumonia, CHF 08/25/17 CXR: No evidence of vascular congestive changes, pulmonary infiltrates, pneumothorax or pleural effusion. ASSESSMENT/PLAN: Patient is a 57 year old male with significant PMHx IDDM (on insulin pump), HTN , HLD, CAD s/p CABG and s/p AICD, CHF, Aortic stenosis, CKD, p/w fever, rigors, malaise x 1 day, admitted to ICU for NSTEMI and sepsis. # Uremia requiring urgent Dialysis Astrexis present ++ (had minimal tremors yesterday) with confusion. BUN 149/ creat 7.6. Dr. Pendleton informed Femoral shiley placed, urgent HD done today. Short term vs long term care pharmacist dialysis to be determined Renal diet Cotin # Left second digit -suspicion for osteomyelitis Bone scan done 08/23/18, reports suspicious for osteomyelitis. Podiatry consulted, recommended either amputation or IV antibiotics Patient hasn't decided yet. For now continue IV Ceftriaxone 2gm daily. Random vanc 16.1 08/24/18 # Volume overload likely from acute on chronic systolic dysfunction and CKD- improving Off IV Lasix drip and dobutamine. Diaz in place, Urinary output 600/24 hrs, continue to monitor. Not on lasix as creatinine is getting worse. Daily weight. 293-->286 lbs--> 281--> 279 lbs today. # NSTEMI: trops trending down. Continue Statin 80 mg HS Continue Aspirin 81 mg/Plavix Echo reviewed. Report as above Cardiology on board. # HECTOR on CKD likely secondary to hypoperfusion from Sepsis Creatiine 4.4--> 4.2-->4.1--> 6 -->7.6 Phosphorus and Mg high. On Phoslo. Avoid nephrotoxic drugs Renal on board # HTN-controlled now resume COreg 25 mg PO BID # DM Using Insulin pump. Blood sugar better controlled Appreciate Endocrinology consult. Bolus to be given via Insulin pump Watch for hypoglycemic episodes # FEN IV NS @100 mlshr. Electrolytes to be repeated in AM. Diabetic diet # Prophylaxis For DVT: On Heparin sq TID For GI: Ranitidine 150 mg BID # Code Status: Full Code # Dispo: Now in Tele/continuous cardiac monitoring. Illness, Investigation and Plan of care explained to the patient. He verbalized understanding. Case discussed with Dr. Levy. Visit type - Emergency Visit Emergency Visit: Yes ED Registration Date: 08/17/18 Care time: The patient presented to the Emergency Department on the above date and was hospitalized for further evaluation of their emergent condition. - New Patient This patient is new to me today: No - Critical Care Critical Care patient: No - Discharge Referral Referred to [facility] Med P.C.: No
[2018-08-26] MEDS ORDERED: DEXTROSE 5%-WATER 100 ML IVPB ONE (09:46)
[2018-08-26] MEDS ORDERED: GABAPENTIN 100 MG CAPSULE (FP) PO SCH (10:00)
--- NOTE | 2018-08-26 10:15 | PN ---
Progress Note, Physician History of Present Illness: Denies orthopnea and dyspnea after diuresis which has been held due to acute on ckd. + asterixis. - Current Medication List Current Medications: Active Medications Acetaminophen (Tylenol -) 650 mg PO Q4H PRN PRN Reason: FEVER Aspirin (Asa -) 81 mg PO DAILY [facility] Last Admin: 08/25/18 10:41 Dose: 81 mg Atorvastatin Calcium (Lipitor -) 80 mg PO HS [facility] Last Admin: 08/25/18 22:03 Dose: 80 mg Calcium Acetate (Phoslo -) 1,334 mg PO TIDCM [facility] Last Admin: 08/25/18 18:05 Dose: 1,334 mg Carvedilol (Coreg -) 25 mg PO BID [facility] Last Admin: 08/25/18 22:03 Dose: 25 mg Clopidogrel Bisulfate (Plavix -) 75 mg PO DAILY [facility] Last Admin: 08/25/18 10:43 Dose: 75 mg Fluticasone Propionate (Flonase -) 1 spray NS BID [facility] Last Admin: 08/25/18 22:02 Dose: Not Given Heparin Sodium (Porcine) (Heparin -) 5,000 unit SQ TID [facility] Last Admin: 08/26/18 06:17 Dose: 5,000 unit Ceftriaxone Sodium 2 gm/ (Dextrose) 100 mls @ 200 mls/hr IVPB DAILY [facility]; Protocol Last Admin: 08/25/18 10:44 Dose: 200 mls/hr Sodium Chloride (Normal Saline -) 1,000 mls @ 100 mls/hr IV ASDIR [facility] Insulin Aspart (Novolog Vial Sliding Scale -) 1 vial SQ TIDAC [facility]; Protocol Last Admin: 08/26/18 06:15 Dose: Not Given Insulin Aspart (Novolog Vial Sliding Scale -) 1 vial SQ HS [facility]; Protocol Last Admin: 08/25/18 22:02 Dose: Not Given Lactobacillus Acidophilus (Bacid -) 1 tab PO DAILY [facility] Last Admin: 08/25/18 10:40 Dose: 1 tab Mupirocin (Bactroban 2% Cream -) 1 applic TP BID [facility] Last Admin: 08/25/18 22:09 Dose: 1 applic Foyqt-0-Tjac Ethyl Esters (Lovaza -) 2 gm PO BID [facility] Last Admin: 08/25/18 22:03 Dose: 2 gm Ranitidine HCl (Zantac -) 150 mg PO BID [facility] Last Admin: 08/25/18 22:03 Dose: 150 mg Ranolazine (Ranexa -) 500 mg PO BID [facility] Last Admin: 08/25/18 22:03 Dose: 500 mg Sodium Chloride ([place] Nasal [place] -) 2 spray NS TID PRN PRN Reason: NASAL CONGESTION Sodium Polystyrene Sulfonate (Kayexalate -) 30 gm PO ONCE ONE Stop: 08/26/18 09:10 - Objective Vital Signs: Vital Signs Temperature 98.2 F 08/26/18 06:00 Pulse Rate 62 08/26/18 06:00 Respiratory Rate 08/26/18 06:00 Blood Pressure 129/69 08/26/18 06:00 O2 Sat by Pulse Oximetry (%) 98 08/26/18 06:49 Constitutional: Yes: No Distress, Calm Neck: Yes: Supple Cardiovascular: Yes: Regular Rate and Rhythm Respiratory: Yes: Regular, Diminished, On Nasal O2 Gastrointestinal: Yes: Normal Bowel Sounds, Soft, Abdomen, Obese Genitourinary: Yes: Diaz Present Edema: No Neurological: Yes: Asterixis Labs: CBC, BMP 08/26/18 05:45 08/26/18 05:45 INR, PTT INR 1.23 (0.83-1.09) H 08/18/18 08:05 - ....Imaging EKG: Report Reviewed (Tele: v-paced) Problem List - Problems (1) NSTEMI (non-ST elevated myocardial infarction) Code(s): I21.4 - NON-ST ELEVATION (NSTEMI) MYOCARDIAL INFARCTION (2) Sepsis Code(s): A41.9 - SEPSIS, UNSPECIFIED ORGANISM Qualifiers: Sepsis type: sepsis due to unspecified organism Qualified Code(s): A41.9 - Sepsis, unspecified organism (3) Acute on chronic kidney failure Code(s): N17.9 - ACUTE KIDNEY FAILURE, UNSPECIFIED; N18.9 - CHRONIC KIDNEY DISEASE, UNSPECIFIED Qualifiers: Acute renal failure type: unspecified Chronic kidney disease stage: unspecified stage Qualified Code(s): N17.9 - Acute kidney failure, unspecified ; N18.9 - Chronic kidney disease, unspecified (4) Acute on chronic systolic (congestive) heart failure Code(s): I50.23 - ACUTE ON CHRONIC SYSTOLIC (CONGESTIVE) HEART FAILURE (5) Dyspnea due to congestive heart failure Code(s): I50.9 - HEART FAILURE, UNSPECIFIED (6) Elevated troponin Code(s): R79.89 - OTHER SPECIFIED ABNORMAL FINDINGS OF BLOOD CHEMISTRY (7) HLD (hyperlipidemia) Code(s): E78.5 - HYPERLIPIDEMIA, UNSPECIFIED Qualifiers: Hyperlipidemia type: pure hypercholesterolemia Qualified Code(s): E78.00 - Pure hypercholesterolemia, unspecified (8) HTN (hypertension) Code(s): I10 - ESSENTIAL (PRIMARY) HYPERTENSION Qualifiers: Hypertension type: essential hypertension Qualified Code(s): I10 - Essential (primary) hypertension (9) History of coronary artery stent placement Code(s): Z95.5 - PRESENCE OF CORONARY ANGIOPLASTY IMPLANT AND GRAFT (10) Hx of CABG Code(s): Z95.1 - PRESENCE OF AORTOCORONARY BYPASS GRAFT (11) ICD (implantable cardioverter-defibrillator) in place Code(s): Z95.810 - PRESENCE OF AUTOMATIC (IMPLANTABLE) CARDIAC DEFIBRILLATOR (12) Systolic heart failure Code(s): I50.20 - UNSPECIFIED SYSTOLIC (CONGESTIVE) HEART FAILURE Qualifiers: Heart failure chronicity: acute on chronic Qualified Code(s): I50.23 - Acute on chronic systolic (congestive) heart failure (13) Sleep apnea Code(s): G47.30 - SLEEP APNEA, UNSPECIFIED Qualifiers: Sleep apnea type: obstructive Qualified Code(s): G47.33 - Obstructive sleep apnea (adult) (pediatric) (14) Uremia Code(s): N19 - UNSPECIFIED KIDNEY FAILURE Assessment/Plan 08/18/2018 Echo: Poor windows 1. Acute on chronic class II-III NYHA classification LV failure related to LV systolic dysfunction, euvolemic 2. CAD post MN/CABG, PCI/stent, demand ischemic injury history of an abnormal MPI study angina pectoris, plan for conservative medical management 3. Aortic stenosis, mild 4. HTN 5. IDDM 6. Hypercholesterolemia 7. Post prophylactic ICD implant, history of NSVT 8. Acute on CKD with hyperkalemia due to volume depletion in setting of diuretics + hemodyanic changes with uremia 9. Anemia post transfusion 10. Gout 11. Obstructive sleep apnea 12. Left leg cellulitis PLAN: 1. Judicious IVF off diuretics with monitoring renal function and electrolytes 2. Continue Coreg 25 bid 3. Hold Entresto 26/26 bid pending renal function and hyperkalemia stabilization 4. Continue Ranexa 500 bid 5. Continue Norvasc 5 qd 6. Continue Lipitor 80 qhs and Lovaza 2 bid 7. Continue Plavix 75 qd and ASA 81 qd with caution in view of the above noted anemia, transfuse as needed to maintain Hg equal or > 8.0 8. Complete antibiotic course as per the primary team 9. As outlined in the prior note plan to pursue medical management and therapy optimization and deferring any invasive strategy in view of the above noted CKD with acute exacerbation 10. DVT prophylaxis
[2018-08-26] MEDS: CEFTRIAXONE 2 GM in DEXTROSE 5%-WATER 100 ML IVPB SCH (10:22)
[2018-08-26] MEDS: SODIUM CHLORIDE 1,000 ML IV SCH (10:22)
[2018-08-26] MEDS: CALCIUM ACETATE 667 MG CAPSULE (FP) PO SCH ×4 (10:27→17:53)
[2018-08-26] MEDS: ASPIRIN 81 MG CHEWABLE TABLETS PO SCH (10:27)
[2018-08-26] MEDS: CARVEDILOL 25 MG TABLET (FP) PO SCH ×2 (10:27→21:59)
[2018-08-26] MEDS: OMEGA-3 ACID ETHYL ESTERS (FATTY-ACIDS) 1 GM CAPSULE (FP) PO SCH ×2 (10:27→22:00)
[2018-08-26] MEDS: LACTOBACILLUS ACIDOPHILUS 1 TABLET PO SCH (10:27)
[2018-08-26] MEDS: RANITIDINE HCL 150 MG TABLET (FP) PO SCH ×2 (10:28→22:01)
[2018-08-26] MEDS: CLOPIDOGREL BISULFATE 75 MG TABLET (FP) PO SCH (10:28)
[2018-08-26] MEDS: MUPIROCIN CA 2% TOPICAL CREAM 15 GM TUBE TP SCH (10:35)
[2018-08-26] MEDS: FLUTICASONE PROP 0.05% 16 GM NASAL SPRAY NS SCH (10:37)
[2018-08-26] MEDS: RANOLAZINE E.R. 500 MG TABLET (FP) PO SCH ×2 (10:37→22:01)
--- NOTE | 2018-08-26 11:38 | PN ---
Progress Note (short form) - Note Progress Note: Renal follow up for HECTOR on CKD Pt seen and examined at the bedside awake and alert, more groggy then yesterday no cp, abd pain, SOB, N/V still has shaking of his hands making urine via joiner but less volume over the past 2 days Vital Signs Temperature 98.1 F 08/26/18 10:00 Pulse Rate 70 08/26/18 10:00 Respiratory Rate 20 08/26/18 10:00 Blood Pressure 106/53 L 08/26/18 10:00 O2 Sat by Pulse Oximetry (%) 96 08/26/18 09:00 Intake & Output 08/23/18 08/24/18 08/25/18 08/26/18 23:59 23:59 23:59 23:59 Intake Total 1378 1175 400 590 Output Total 4600 600 600 200 Balance -3222 575 -200 390 Weight 128.9 kg 127.459 kg 126.915 kg NAD awake and alert groggy RRR, no M/R DEc BS, no rales No LE edema + asterxis CBC, BMP 08/26/18 05:45 08/26/18 05:45 Current Medications Acetaminophen (Tylenol -) 650 mg PO Q4H PRN PRN Reason: FEVER Aspirin (Asa -) 81 mg PO DAILY [facility] Last Admin: 08/26/18 10:27 Dose: 81 mg Atorvastatin Calcium (Lipitor -) 80 mg PO HS [facility] Last Admin: 08/25/18 22:03 Dose: 80 mg Calcium Acetate (Phoslo -) 1,334 mg PO TIDCM [facility] Last Admin: 08/26/18 10:27 Dose: 1,334 mg Carvedilol (Coreg -) 25 mg PO BID [facility] Last Admin: 08/26/18 10:27 Dose: 25 mg Clopidogrel Bisulfate (Plavix -) 75 mg PO DAILY [facility] Last Admin: 08/26/18 10:28 Dose: 75 mg Fluticasone Propionate (Flonase -) 1 spray NS BID [facility] Last Admin: 08/26/18 10:37 Dose: Not Given Heparin Sodium (Porcine) (Heparin -) 5,000 unit SQ TID [facility] Last Admin: 08/26/18 06:17 Dose: 5,000 unit Ceftriaxone Sodium 2 gm/ (Dextrose) 100 mls @ 200 mls/hr IVPB DAILY [facility]; Protocol Last Admin: 08/26/18 10:22 Dose: 200 mls/hr Sodium Chloride (Normal Saline -) 1,000 mls @ 100 mls/hr IV ASDIR [facility] Last Admin: 08/26/18 10:22 Dose: 100 mls/hr Insulin Aspart (Novolog Vial Sliding Scale -) 1 vial SQ TIDAC [facility]; Protocol Last Admin: 08/26/18 06:15 Dose: Not Given Insulin Aspart (Novolog Vial Sliding Scale -) 1 vial SQ HS [facility]; Protocol Last Admin: 08/25/18 22:02 Dose: Not Given Lactobacillus Acidophilus (Bacid -) 1 tab PO DAILY [facility] Last Admin: 08/26/18 10:27 Dose: 1 tab Mupirocin (Bactroban 2% Cream -) 1 applic TP BID [facility] Last Admin: 08/26/18 10:35 Dose: 1 applic [id number] Ethyl Esters (Lovaza -) 2 gm PO BID [facility] Last Admin: 08/26/18 10:27 Dose: 2 gm Ranitidine HCl (Zantac -) 150 mg PO BID [facility] Last Admin: 08/26/18 10:28 Dose: 150 mg Ranolazine (Ranexa -) 500 mg PO BID [facility] Last Admin: 08/26/18 10:37 Dose: 500 mg Sodium Chloride ([place] Nasal [place] -) 2 spray NS TID PRN PRN Reason: NASAL CONGESTION Sodium Polystyrene Sulfonate (Kayexalate -) 30 gm PO ONCE ONE Stop: 08/26/18 09:10 57 year old gentleman with hx of 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 #HECTOR on CKD now likely due to volume depletion in setting of diuretics + hemodyanic changes #Sepsis syndrome from soft tissue infection r/o bacteremia #NSTEMI #Acute on chronic anemia #Hx of Hypertension #Lactic acidosis now resolved #Hypocalcemia/Hyperphosphtatemia #Volume overload requiring IV diuresis now resolved Renal function unfortunately worsened today given high BUN, mental status, hyperkalemia urgent dialysis is warranted benefits and risks including, bleeding, hypotension, allergic reaction to dialysis filter, cramping were discussed with the patient and both are in agreement to proceed. will consult vascular surgery for access placement and plan for first dialysis this afternoon still suspect hemodynamic injury as cause of HECTOR so will start trial of IVF today and will monitor urine output as predicotor of renal recovery continue to hold any further diuretics/ELROY/ARB at this time Continue calcium acetate with meals Renal diet Cardiology following Jose Manuel Pendleton DO
[2018-08-26] MEDS ORDERED: SODIUM CHLORIDE 250 ML IV PRN (11:45)
[2018-08-26] MEDS ORDERED: SODIUM POLYSTYRENE SULFONATE 15 GM/60 ML BOTTLE PO ONE (12:00)
--- NOTE | 2018-08-26 12:14 | PN ---
Progress Note (short form) - Note Progress Note: Breathing seems stable. Asterixis noted. Noted that HD will be initiated. Intake & Output 08/23/18 08/24/18 08/25/18 08/26/18 23:59 23:59 23:59 23:59 Intake Total 1378 1175 400 590 Output Total 4600 600 600 200 Balance -3222 575 -200 390 Weight 284 lb 2.813 oz 281 lb 279 lb 12.8 oz Last Vital Signs Temp Pulse Resp BP Pulse Ox 98.1 F 70 20 106/53 L 96 08/26/18 10:00 08/26/18 10:00 08/26/18 10:00 08/26/18 10:00 08/26/18 09:00 Active Medications Acetaminophen (Tylenol -) 650 mg PO Q4H PRN PRN Reason: FEVER Albumin Human (Albumin Human 25%) 12.5 gm IVPB Q30M [facility] Aspirin (Asa -) 81 mg PO DAILY [facility] Last Admin: 08/26/18 10:27 Dose: 81 mg Atorvastatin Calcium (Lipitor -) 80 mg PO HS [facility] Last Admin: 08/25/18 22:03 Dose: 80 mg Calcium Acetate (Phoslo -) 1,334 mg PO TIDCM [facility] Last Admin: 08/26/18 12:11 Dose: Not Given Carvedilol (Coreg -) 25 mg PO BID [facility] Last Admin: 08/26/18 10:27 Dose: 25 mg Clopidogrel Bisulfate (Plavix -) 75 mg PO DAILY [facility] Last Admin: 08/26/18 10:28 Dose: 75 mg Fluticasone Propionate (Flonase -) 1 spray NS BID [facility] Last Admin: 08/26/18 10:37 Dose: Not Given Heparin Sodium (Porcine) (Heparin -) 5,000 unit SQ TID [facility] Last Admin: 08/26/18 06:17 Dose: 5,000 unit Ceftriaxone Sodium 2 gm/ (Dextrose) 100 mls @ 200 mls/hr IVPB DAILY [facility]; Protocol Last Admin: 08/26/18 10:22 Dose: 200 mls/hr Sodium Chloride (Normal Saline -) 1,000 mls @ 100 mls/hr IV ASDIR [facility] Last Admin: 08/26/18 10:22 Dose: 100 mls/hr Sodium Chloride (Normal Saline -) 250 mls @ 3,000 mls/hr IV PRN PRN PRN Reason: Hypotension during Dialysis Stop: 08/27/18 11:45 Insulin Aspart (Novolog Vial Sliding Scale -) 1 vial SQ TIDAC [facility]; Protocol Last Admin: 08/26/18 12:11 Dose: Not Given Insulin Aspart (Novolog Vial Sliding Scale -) 1 vial SQ HS [facility]; Protocol Last Admin: 08/25/18 22:02 Dose: Not Given Lactobacillus Acidophilus (Bacid -) 1 tab PO DAILY [facility] Last Admin: 08/26/18 10:27 Dose: 1 tab Mupirocin (Bactroban 2% Cream -) 1 applic TP BID [facility] Last Admin: 08/26/18 10:35 Dose: 1 applic [id number] Ethyl Esters (Lovaza -) 2 gm PO BID [facility] Last Admin: 08/26/18 10:27 Dose: 2 gm Ranitidine HCl (Zantac -) 150 mg PO BID [facility] Last Admin: 08/26/18 10:28 Dose: 150 mg Ranolazine (Ranexa -) 500 mg PO BID [facility] Last Admin: 08/26/18 10:37 Dose: 500 mg Sodium Chloride ([place] Nasal [place] -) 2 spray NS TID PRN PRN Reason: NASAL CONGESTION Constitutional: Yes: NAD, Obese Eyes: Yes: WNL HENT: Yes: WNL Neck: Yes: WNL Cardiovascular: Yes: Regular Rate and Rhythm, S1, S2 Respiratory: Yes: Diminished Gastrointestinal: Yes: Normal Bowel Sounds, Soft Extremities: Yes: WNL Edema: Yes Labs: Laboratory Results - last 24 hr 08/20/18 08/20/18 08/21/18 16:41 22:16 05:40 WBC RBC Hgb Hct MCV MCH MCHC RDW Plt Count MPV Sodium Potassium Chloride Carbon Dioxide Anion Gap BUN Creatinine Creat Clearance w eGFR POC Glucometer 329.87145 397.12473 327.30218 Random Glucose Calcium Phosphorus Magnesium 08/21/18 08/21/18 08/21/18 11:07 16:42 21:46 WBC RBC Hgb Hct MCV MCH MCHC RDW Plt Count MPV Sodium Potassium Chloride Carbon Dioxide Anion Gap BUN Creatinine Creat Clearance w eGFR POC Glucometer 331.85729 344.05379 269.41155 Random Glucose Calcium Phosphorus Magnesium 01/06/19 01/06/19 01/06/19 06:34 11:03 17:49 WBC RBC Hgb Hct MCV MCH MCHC RDW Plt Count MPV Sodium Potassium Chloride Carbon Dioxide Anion Gap BUN Creatinine Creat Clearance w eGFR POC Glucometer 377.04034 306.72876 355.25129 Random Glucose Calcium Phosphorus Magnesium 08/22/18 08/23/18 08/23/18 21:49 05:53 12:22 WBC RBC Hgb Hct MCV MCH MCHC RDW Plt Count MPV Sodium Potassium Chloride Carbon Dioxide Anion Gap BUN Creatinine Creat Clearance w eGFR POC Glucometer 313.59152 235.60565 222.20966 Random Glucose Calcium Phosphorus Magnesium 08/23/18 08/24/18 08/24/18 22:15 05:24 11:56 WBC RBC Hgb Hct MCV MCH MCHC RDW Plt Count MPV Sodium Potassium Chloride Carbon Dioxide Anion Gap BUN Creatinine Creat Clearance w eGFR POC Glucometer 214.77810 172.23601 160.89889 Random Glucose Calcium Phosphorus Magnesium 08/24/18 08/25/18 08/25/18 17:06 12:19 17:00 WBC RBC Hgb Hct MCV MCH MCHC RDW Plt Count MPV Sodium 132 L Potassium 5.2 H Chloride 97 L Carbon Dioxide 21 Anion Gap 14 BUN 129 H* Creatinine 6.7 H Creat Clearance w eGFR 8.61 POC Glucometer 131.22536 203 Random Glucose 168 H Calcium 8.0 L Phosphorus Magnesium 08/25/18 08/25/18 08/26/18 17:48 21:18 05:45 WBC 8.9 RBC 2.89 L Hgb 8.4 L Hct 25.6 L MCV 88.4 MCH 29.0 MCHC 32.8 RDW 16.3 H Plt Count 366 MPV 7.0 L Sodium Potassium Chloride Carbon Dioxide Anion Gap BUN Creatinine Creat Clearance w eGFR POC Glucometer 190 78 Random Glucose Calcium Phosphorus Magnesium 08/26/18 08/26/18 05:45 06:14 WBC RBC Hgb Hct MCV MCH MCHC RDW Plt Count MPV Sodium 130 L Potassium 5.6 H Chloride 95 L Carbon Dioxide 21 Anion Gap 14 BUN 149 H* Creatinine 7.6 H* Creat Clearance w eGFR 7.44 POC Glucometer 180 Random Glucose 109 H Calcium 7.9 L Phosphorus 10.1 H* Magnesium 2.8 H Problem List - Problems (1) NSTEMI (non-ST elevated myocardial infarction) Code(s): I21.4 - NON-ST ELEVATION (NSTEMI) MYOCARDIAL INFARCTION (2) Sepsis Code(s): A41.9 - SEPSIS, UNSPECIFIED ORGANISM Qualifiers: Sepsis type: sepsis due to unspecified organism Qualified Code(s): A41.9 - Sepsis, unspecified organism (3) Troponin I above reference range Code(s): R74.8 - ABNORMAL LEVELS OF OTHER SERUM ENZYMES (4) Acute on chronic kidney failure Code(s): N17.9 - ACUTE KIDNEY FAILURE, UNSPECIFIED; N18.9 - CHRONIC KIDNEY DISEASE, UNSPECIFIED Qualifiers: Acute renal failure type: unspecified Chronic kidney disease stage: unspecified stage Qualified Code(s): N17.9 - Acute kidney failure, unspecified ; N18.9 - Chronic kidney disease, unspecified (5) Acute on chronic systolic (congestive) heart failure Code(s): I50.23 - ACUTE ON CHRONIC SYSTOLIC (CONGESTIVE) HEART FAILURE (6) Anemia Code(s): D64.9 - ANEMIA, UNSPECIFIED Qualifiers: Anemia type: unspecified type Qualified Code(s): D64.9 - Anemia, unspecified (7) Aortic valve stenosis Code(s): I35.0 - NONRHEUMATIC AORTIC (VALVE) STENOSIS Qualifiers: Cardiac valve disease etiology: nonrheumatic Qualified Code(s): I35.0 - Nonrheumatic aortic (valve) stenosis (8) CAD (coronary artery disease) Code(s): I25.10 - ATHSCL HEART DISEASE OF [place] CORONARY ARTERY W/O ANG PCTRS Qualifiers: Coronary Disease-Associated Artery/Lesion type: [place] artery [place] vs. transplanted heart: [place] heart Associated angina: without angina Qualified Code(s): I25.10 - Atherosclerotic heart disease of [place] coronary artery without angina pectoris (9) CKD stage 4 due to type 2 diabetes mellitus Code(s): E11.22 - TYPE 2 DIABETES MELLITUS W DIABETIC CHRONIC KIDNEY DISEASE; N18.4 - CHRONIC KIDNEY DISEASE, STAGE 4 (SEVERE) (10) History of coronary artery stent placement Code(s): Z95.5 - PRESENCE OF CORONARY ANGIOPLASTY IMPLANT AND GRAFT (11) Hx of CABG Code(s): Z95.1 - PRESENCE OF AORTOCORONARY BYPASS GRAFT (12) ICD (implantable cardioverter-defibrillator) in place Code(s): Z95.810 - PRESENCE OF AUTOMATIC (IMPLANTABLE) CARDIAC DEFIBRILLATOR Assessment/Plan ASSESSMENT AND PLAN: Acute on Chronic Systolic Heart Failure Acute NSTEMI CAD s/p CABG Acute on Chronic Renal Failure HTN DM Cellulitis Anemia - For acute HD today - Antibiotics per ID - daily weights - ASA, plavix - beta sandee, statin - O2 to keep SpO2 >90% - monitor lytes,renal function Dr López
--- NOTE | 2018-08-26 13:08 | PN ---
Teaching Attending Note Name of Resident: Char Vera ATTENDING PHYSICIAN STATEMENT I saw and evaluated the patient. I reviewed the resident's note and discussed the case with the resident. I agree with the resident's findings and plan as documented. SUBJECTIVE: Mr Long says he is doing better today. Less tremors and feeling more steady. Hallucinations have also resolved. Denies cp, sob, n/v. OBJECTIVE: Last Vital Signs Temp Pulse Resp BP Pulse Ox 36.7 C 70 20 106/53 L 96 08/26/18 10:00 08/26/18 10:00 08/26/18 10:00 08/26/18 10:00 08/26/18 09:00 Gen: nad, morbidly obese, slightly tremulous Pulm: ctab w/o w/r/r CV: distant but sounds regular w/o m/r/g Abd: +bs, s/nt/nd Ext: no c/c/e CBC, BMP 08/26/18 05:45 08/26/18 05:45 ASSESSMENT AND PLAN: 1. HECTOR on CKD -case d/w Dr Pendleton -to receive HD today -tunnel catheter placement today for HD 2. L foot osteomyelitis -seen by podiatry and ID -continue IV rocephin, do full course if too high risk for surgical intervention at this time -patient discussing possibility of amputation if cleared from a cardiac standpoint 3. CHF -exacerbation this hospital stay -diuresed -controlled 4. Diabetes -continue current management 5. HTN -improved off of amlodipine -continue coreg 6. HLD -continue lipitor 7. NSTEMI/CAD -cardiology following -case d/w Dr Bertrand -continue medical management 8. Morbid obesity -will need outpatient weight loss plan 9. Toxic encephalopathy with tremors -multifactorial -stopped gabapentin -HD for severe uremia Problem List - Problems (1) Septic shock Code(s): A41.9 - SEPSIS, UNSPECIFIED ORGANISM; R65.21 - SEVERE SEPSIS WITH SEPTIC SHOCK (2) Cellulitis Code(s): L03.90 - CELLULITIS, UNSPECIFIED Qualifiers: Site of cellulitis: extremity Site of cellulitis of extremity: lower extremity Laterality: left Qualified Code(s): L03.116 - Cellulitis of left lower limb (3) NSTEMI (non-ST elevated myocardial infarction) Code(s): I21.4 - NON-ST ELEVATION (NSTEMI) MYOCARDIAL INFARCTION (4) CKD stage 4 due to type 2 diabetes mellitus Code(s): E11.22 - TYPE 2 DIABETES MELLITUS W DIABETIC CHRONIC KIDNEY DISEASE; N18.4 - CHRONIC KIDNEY DISEASE, STAGE 4 (SEVERE) (5) Diabetes mellitus Code(s): E11.9 - TYPE 2 DIABETES MELLITUS WITHOUT COMPLICATIONS Qualifiers: Diabetes mellitus type: type 2 Diabetes mellitus complication status: without complication (6) HLD (hyperlipidemia) Code(s): E78.5 - HYPERLIPIDEMIA, UNSPECIFIED Qualifiers: Hyperlipidemia type: pure hypercholesterolemia Qualified Code(s): E78.00 - Pure hypercholesterolemia, unspecified (7) HTN (hypertension) Code(s): I10 - ESSENTIAL (PRIMARY) HYPERTENSION Qualifiers: Hypertension type: essential hypertension Qualified Code(s): I10 - Essential (primary) hypertension (8) ICD (implantable cardioverter-defibrillator) in place Code(s): Z95.810 - PRESENCE OF AUTOMATIC (IMPLANTABLE) CARDIAC DEFIBRILLATOR (9) Systolic heart failure Code(s): I50.20 - UNSPECIFIED SYSTOLIC (CONGESTIVE) HEART FAILURE Qualifiers: Heart failure chronicity: acute on chronic Qualified Code(s): I50.23 - Acute on chronic systolic (congestive) heart failure
--- NOTE | 2018-08-26 13:32 | PN ---
Progress Note (short form) - Note Progress Note: Feels better Blood sugar better on Insulin pump Is getting access for HD Vital Signs Period Temp Pulse Resp BP Sys/Gallo Pulse Ox Last 24 Hr 97.8 F-98.2 F 62-70 19-20 90-129/53-74 96-99 PE: AOx3 Neck: Supple, HEENT: EOMI Lungs: cTA CVS: S1S2 Abd: Benign EXt: slight erythema left 2nd toe Neuro: No focal deficit CMP Sodium 130 mmol/L (136-145) L 08/26/18 05:45 Potassium 5.6 mmol/L (3.5-5.1) H 08/26/18 05:45 Chloride 95 mmol/L (98-107) L 08/26/18 05:45 Carbon Dioxide 21 mmol/L (21-32) 08/26/18 05:45 Anion Gap 14 MMOL/L (8-16) 08/26/18 05:45 BUN 149 mg/dL (7-18) H* 08/26/18 05:45 Creatinine 7.6 mg/dL (0.55-1.3) H* 08/26/18 05:45 Creat Clearance w eGFR 7.44 (>60) 08/26/18 05:45 POC Glucometer 180 UNITS (80-120) 08/26/18 06:14 Random Glucose 109 mg/dL (74-106) H 08/26/18 05:45 Hemoglobin A1c % 6.0 % (4.2-6.3) 08/19/18 05:15 Lactic Acid 1.1 mmol/L (0.4-2.0) 08/17/18 20:20 Calcium 7.9 mg/dL (8.5-10.1) L 08/26/18 05:45 Phosphorus 10.1 mg/dL (2.5-4.9) H* 08/26/18 05:45 Magnesium 2.8 mg/dL (1.8-2.4) H 08/26/18 05:45 Total Bilirubin 0.5 mg/dL (0.2-1) 08/23/18 05:15 AST 21 U/L (15-37) 08/23/18 05:15 ALT 39 U/L (13-61) 08/23/18 05:15 Alkaline Phosphatase 84 U/L (45-117) 08/23/18 05:15 Creatine Kinase 402 IU/L (26-308) H 08/19/18 05:15 Creatine Kinase Index 2.8 % (0.0-5.0) 08/19/18 05:15 CK-MB (CK-2) 11.6 ng/mL (0.5-3.6) H 08/19/18 05:15 Troponin I 19.10 ng/ml (0.00-0.05) H* 08/19/18 05:15 B-Natriuretic Peptide 99756.6 pg/ml (5-125) H 08/20/18 05:30 Total Protein 6.6 g/dl (6.4-8.2) 08/23/18 05:15 Albumin 2.2 g/dl (3.4-5.0) L 08/23/18 05:15 Current Medications Generic Name Dose Route Start Last Admin Trade Name Freq PRN Reason Stop Dose Admin Acetaminophen 650 mg 08/24/18 20:52 Tylenol - PO Q4H PRN FEVER Albumin Human 12.5 gm 08/26/18 11:45 Albumin Human 25% IVPB Q30M [facility] Aspirin 81 mg 08/25/18 10:00 08/26/18 10:27 Asa - PO 81 mg DAILY [facility] Administration Atorvastatin Calcium 80 mg 08/24/18 22:00 08/25/18 22:03 Lipitor - PO 80 mg HS [facility] Administration Calcium Acetate 1,334 mg 08/24/18 17:30 08/26/18 12:11 Phoslo - PO Not Given TIDCM [facility] Carvedilol 25 mg 08/24/18 22:00 08/26/18 10:27 Coreg - PO 25 mg BID [facility] Administration Clopidogrel Bisulfate 75 mg 08/25/18 10:00 08/26/18 10:28 Plavix - PO 75 mg DAILY [facility] Administration Fluticasone Propionate 1 spray 08/24/18 22:00 08/26/18 10:37 Flonase - NS Not Given BID [facility] Heparin Sodium (Porcine) 5,000 unit 08/24/18 22:00 08/26/18 06:17 Heparin - SQ 5,000 unit TID [facility] Administration Ceftriaxone Sodium 2 gm/ 100 mls @ 200 mls/hr 08/25/18 10:00 08/26/18 10:22 Dextrose IVPB 200 mls/hr DAILY [facility] Administration Protocol Sodium Chloride 1,000 mls @ 100 mls/hr 08/26/18 09:45 08/26/18 10:22 Normal Saline - IV 100 mls/hr ASDIR [facility] Administration Sodium Chloride 250 mls @ 3,000 mls/hr 08/26/18 11:45 Normal Saline - IV 08/27/18 11:45 PRN PRN Hypotension during Dialysis Insulin Aspart 1 vial 08/24/18 11:52 08/26/18 12:11 Novolog Vial Sliding Scale - SQ Not Given TIDAC [facility] Protocol Insulin Aspart 1 vial 08/24/18 22:00 08/25/18 22:02 Novolog Vial Sliding Scale - SQ Not Given HS [facility] Protocol Lactobacillus Acidophilus 1 tab 08/25/18 10:00 08/26/18 10:27 Bacid - PO 1 tab DAILY [facility] Administration Mupirocin 1 applic 08/24/18 22:00 08/26/18 10:35 Bactroban 2% Cream - TP 1 applic BID [facility] Administration Heohh-3-[id number] Ethyl Esters 2 gm 08/24/18 22:00 08/26/18 10:27 Lovaza - PO 2 gm BID [facility] Administration Ranitidine HCl 150 mg 08/24/18 22:00 08/26/18 10:28 Zantac - PO 150 mg BID [facility] Administration Ranolazine 500 mg 08/24/18 22:00 08/26/18 10:37 Ranexa - PO 500 mg BID [facility] Administration Sodium Chloride 2 spray 08/24/18 20:52 [place] Nasal [place] - NS TID PRN NASAL CONGESTION AP: Left 2nd toe cellulitis: improving Osteomyelitis: Bone scan suspicious for osteo left 2nd toe T2DM On Insulin pump at home HECTOR on CKD HLD CAD/Elevated Troponins: Probably secondary to demand ischemia CHF BGM Q ACHS and 3 AM On Insulin pump: Basal setting changed 12MN 1.3, 6 AM 1.6 and 6 PM 1.3 Bolus to be done as per sliding scale in chart by Nursing staff as pt feels is not able to do it. Discussed with at bedside. IV abx vs Amputation of left 2nd toe Will f/u
[2018-08-26] MEDS ORDERED: HEPARIN NA (PORCINE) 5,000 UNITS/ML 1ML VIAL IVPUSH ONE (14:07)
--- NOTE | 2018-08-26 14:31 | PROC ---
Central Line Insertion - Procedure Note TIME OUT performed prior to this procedure with verbal confirmation of correct patient identity, correct side, agreement of the procedure, correct patient position, availability of necessary equipment. The consent form is complete and accurate. Risk of possible infection, bleeding and pneumothorax have been discussed with the patient. Safety precautions based on patient history or medication use has been addressed. Consent on Chart: Yes Central Line: Dialysis Cath, Dual Lumen Position: Trendelenburg Area prepped with Chlorhexidine solution then draped using sterile barrier protection. Anesthesia: Lidocaine 1% Technique used: Seldinger Ultrasound Guided Assistance: Yes Site: Left Femoral Dark venous non-pulsatile flow noted from hub of needle. The catheter was introduced. Guide wire removed intact. Each port aspirated then flushed with sterile normal saline and capped. Line secured to skin with silk suture. Biopatch placed around base of line. Sterile occlusive dressing applied. No complications. Patient tolerated the procedure well. IV heparin 5000 units was flushed into the catheter lumens. Prior to left femoral catheter line, a right line was attempted twice in the groin using ultrasound. Non-pulsatile flow was noted on each attempt but the dilator would not pass and the line was never placed. The left side was attempted once with ultrasound and a catheter was placed as described above.
--- NOTE | 2018-08-26 17:08 | CONSULT ---
Consult - History of Present Illness History of Present Illness: 57 year old man with CKD who presents with foot infection and found to have acute kidney injury requiring urgent dialysis. He is right handed and has an AICD on the left side. 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 History of Recent Travel: No Home Medications - Allergies Allergies/Adverse Reactions: Allergies Allergy/AdvReac Type Severity Reaction Status Date / Time No Known Allergies Allergy Verified 08/17/18 13:51 - Home Medications Home Medications: Ambulatory Orders Ranolazine [Ranexa] 500 mg PO BID 07/13/13 Ranitidine [Zantac -] 150 mg PO BID 06/19/17 Clonidine Patch [Catapres Tts Patch -] 0.3 mg TD WEEKLY 06/21/17 Aspirin [ASA -] 81 mg PO DAILY 09/28/17 Nitroglycerin [Nitrostat] 0.4 mg SL PRN PRN 09/28/17 Torsemide 1 tab PO DAILY 09/29/17 Carvedilol [Coreg -] 25 mg PO BID #60 tablet 09/30/17 Atorvastatin Ca [Lipitor] 80 mg PO HS 06/01/18 Ergocalciferol (Vitamin D2) [Vitamin D2] 50,000 unit PO WEEKLY 06/01/18 Insulin Lispro [Humalog] 0 unit SQ [facility]IR PRN 06/01/18 [place]-3 Fatty Acids [[place]-3] 1,000 mg PO BID 06/01/18 Sacubitril/Valsartan [Entresto 49 mg-51 mg Tablet] 1 each PO BID 06/01/18 Clopidogrel Bisulfate [Plavix -] 75 mg PO DAILY 30 Days #0 tab 06/08/18 Family Disease History - Family Disease History Family Disease History: Diabetes: Mother (), Brother, Heart Disease: Mother, Brother Physical Exam Vital Signs: Vital Signs Temperature 98.0 F 08/26/18 15:00 Pulse Rate 72 08/26/18 15:00 Respiratory Rate 20 08/26/18 15:00 Blood Pressure 116/68 08/26/18 15:00 O2 Sat by Pulse Oximetry (%) 96 08/26/18 09:00 Constitutional: Yes: Obese Labs: CBC, BMP 08/26/18 05:45 08/26/18 05:45 Problem List - Problems (1) Acute on chronic kidney failure Assessment/Plan: Femoral Shiley placed by PA. Will save right arm for AV access. When stable will get vein mapping of arm. Code(s): N17.9 - ACUTE KIDNEY FAILURE, UNSPECIFIED; N18.9 - CHRONIC KIDNEY DISEASE, UNSPECIFIED Qualifiers: Acute renal failure type: unspecified Chronic kidney disease stage: unspecified stage Qualified Code(s): N17.9 - Acute kidney failure, unspecified ; N18.9 - Chronic kidney disease, unspecified
[2018-08-26] MEDS: ATORVASTATIN CA 80 MG TABLET (FP) PO SCH (22:00)
[2018-08-27] MEDS: MUPIROCIN CA 2% TOPICAL CREAM 15 GM TUBE TP SCH ×2 (02:00→09:30)
[2018-08-27] MEDS: FLUTICASONE PROP 0.05% 16 GM NASAL SPRAY NS SCH ×2 (04:14→19:46)
[2018-08-27] MEDS: HEPARIN NA (PORCINE) 5,000 UNITS/ML 1ML VIAL SQ SCH ×2 (06:42→15:29)
[2018-08-27] MEDS ORDERED: SODIUM CHLORIDE 250 ML IV PRN (07:23)
[2018-08-27 08:00] LABS: HEMATOCRIT 22.7 % (35.4-49); HEMOGLOBIN 7.5 GM/dL (11.7-16.9); MCH 29.4 pg (25.7-33.7); MCHC 33.2 g/dl (32.0-35.9); MEAN CELL VOLUME 88.4 fl (80-96); MEAN PLT VOLUME 6.9 fl (7.5-11.1); PLATELET COUNT 305 K/MM3 (134-434); RBC 2.56 M/mm3 (4.00-5.60); WHITE BLOOD COUNT 6.6 K/mm3 (4.0-10.0)
[2018-08-27] MEDS: CALCIUM ACETATE 667 MG CAPSULE (FP) PO SCH ×3 (08:00→21:01)
[2018-08-27 08:09] LABS: ALK PHOS 87 U/L (45-117); ANION GAP 11 MMOL/L (8-16); BILIRUBIN,TOTAL 0.3 mg/dL (0.2-1); CALCIUM 7.8 mg/dL (8.5-10.1); CHLORIDE 99 mmol/L (98-107); CO2 25 mmol/L (21-32); CREATININE 5.6 mg/dL (0.55-1.3); GLUCOSE,RANDOM 265 mg/dL (74-106); MAGNESIUM 2.5 mg/dL (1.8-2.4); POTASSIUM 4.8 mmol/L (3.5-5.1); SGOT/AST 27 U/L (15-37); SGPT/ALT 27 U/L (13-61); SODIUM 135 mmol/L (136-145); TOT PROT 6.6 g/dl (6.4-8.2)
[2018-08-27 08:25] LABS: INR 1.15 (0.83-1.09); PROTHROMBIN TIME (PATIENT) 13.6 SEC (9.7-13.0)
[2018-08-27 08:31] LABS: BLOOD UREA NITROGEN 111 mg/dL (7-18)
[2018-08-27] MEDS: SODIUM CHLORIDE 1,000 ML IV SCH (09:00)
[2018-08-27] MEDS ORDERED: DEXTROSE 5%-WATER 100 ML IVPB ONE (09:54)
--- NOTE | 2018-08-27 10:03 | PN ---
Progress Note, Physician History of Present Illness: Awake, alert in bed Received first session of HD Complains of UE tremor No c/o toe pain Afebrile WBC WNL - Current Medication List Current Medications: Active Medications Acetaminophen (Tylenol -) 650 mg PO Q4H PRN PRN Reason: FEVER Albumin Human (Albumin Human 25%) 12.5 gm IVPB Q30M [facility] Aspirin (Asa -) 81 mg PO DAILY [facility] Last Admin: 08/26/18 10:27 Dose: 81 mg Atorvastatin Calcium (Lipitor -) 80 mg PO HS [facility] Last Admin: 08/26/18 22:00 Dose: 80 mg Calcium Acetate (Phoslo -) 1,334 mg PO TIDCM [facility] Last Admin: 08/26/18 17:53 Dose: 1,334 mg Carvedilol (Coreg -) 25 mg PO BID [facility] Last Admin: 08/26/18 21:59 Dose: 25 mg Clopidogrel Bisulfate (Plavix -) 75 mg PO DAILY [facility] Last Admin: 08/26/18 10:28 Dose: 75 mg Fluticasone Propionate (Flonase -) 1 spray NS BID [facility] Last Admin: 08/27/18 04:14 Dose: Not Given Heparin Sodium (Porcine) (Heparin -) 5,000 unit SQ TID [facility] Last Admin: 08/27/18 06:42 Dose: 5,000 unit Ceftriaxone Sodium 2 gm/ (Dextrose) 100 mls @ 200 mls/hr IVPB DAILY [facility]; Protocol Last Admin: 08/26/18 10:22 Dose: 200 mls/hr Sodium Chloride (Normal Saline -) 1,000 mls @ 100 mls/hr IV ASDIR [facility] Last Admin: 08/26/18 10:22 Dose: 100 mls/hr Sodium Chloride (Normal Saline -) 250 mls @ 3,000 mls/hr IV PRN PRN PRN Reason: Hypotension during Dialysis Stop: 08/27/18 11:45 Sodium Chloride (Normal Saline -) 250 mls @ 3,000 mls/hr IV PRN PRN PRN Reason: Hypotension during Dialysis Stop: 08/28/18 07:23 Insulin Aspart (Novolog Vial Sliding Scale -) 1 vial SQ TIDAC [facility]; Protocol Last Admin: 08/26/18 16:49 Dose: Not Given Insulin Aspart (Novolog Vial Sliding Scale -) 1 vial SQ HS [facility]; Protocol Last Admin: 08/26/18 22:01 Dose: Not Given Lactobacillus Acidophilus (Bacid -) 1 tab PO DAILY [facility] Last Admin: 08/26/18 10:27 Dose: 1 tab Mupirocin (Bactroban 2% Cream -) 1 applic TP BID [facility] Last Admin: 08/27/18 02:00 Dose: 1 applic [id number]-4-Vtlo Ethyl Esters (Lovaza -) 2 gm PO BID [facility] Last Admin: 08/26/18 22:00 Dose: 2 gm Ranitidine HCl (Zantac -) 150 mg PO BID [facility] Last Admin: 08/26/18 22:01 Dose: 150 mg Ranolazine (Ranexa -) 500 mg PO BID [facility] Last Admin: 08/26/18 22:01 Dose: 500 mg Sodium Chloride ([place] Nasal [place] -) 2 spray NS TID PRN PRN Reason: NASAL CONGESTION - Objective Vital Signs: Vital Signs Temperature 98.0 F 08/27/18 05:29 Pulse Rate 78 08/27/18 05:29 Respiratory Rate 20 08/27/18 05:29 Blood Pressure 118/72 08/27/18 05:29 O2 Sat by Pulse Oximetry (%) 95 08/27/18 01:25 Constitutional: Yes: No Distress Eyes: Yes: Conjunctiva Clear Cardiovascular: Yes: Regular Rate and Rhythm, S1, S2 Respiratory: Yes: CTA Bilaterally Gastrointestinal: Yes: Normal Bowel Sounds, Soft, Abdomen, Obese Extremities: Yes: Other (2nd toe erythema resolved Less calf tenderness) Labs: CBC, BMP 08/27/18 06:40 08/27/18 06:40 INR, PTT INR 1.15 (0.83-1.09) H 08/27/18 06:40 Assessment/Plan Sepsis Osteomyelitis/ Cellulitis L 2nd toe/ distal L LE improved Renal failure Diabetes mellitus Continue ceftriaxone
--- NOTE | 2018-08-27 10:38 | PN ---
Progress Note, Physician History of Present Illness: Denies orthopnea and dyspnea after diuresis which has been held due to acute on ckd requiring HD. + asterixis and tremors. - Current Medication List Current Medications: Active Medications Acetaminophen (Tylenol -) 650 mg PO Q4H PRN PRN Reason: FEVER Albumin Human (Albumin Human 25%) 12.5 gm IVPB Q30M [facility] Aspirin (Asa -) 81 mg PO DAILY [facility] Last Admin: 08/26/18 10:27 Dose: 81 mg Atorvastatin Calcium (Lipitor -) 80 mg PO HS [facility] Last Admin: 08/26/18 22:00 Dose: 80 mg Calcium Acetate (Phoslo -) 1,334 mg PO TIDCM [facility] Last Admin: 08/26/18 17:53 Dose: 1,334 mg Carvedilol (Coreg -) 25 mg PO BID [facility] Last Admin: 08/26/18 21:59 Dose: 25 mg Clopidogrel Bisulfate (Plavix -) 75 mg PO DAILY [facility] Last Admin: 08/26/18 10:28 Dose: 75 mg Fluticasone Propionate (Flonase -) 1 spray NS BID [facility] Last Admin: 08/27/18 04:14 Dose: Not Given Heparin Sodium (Porcine) (Heparin -) 5,000 unit SQ TID [facility] Last Admin: 08/27/18 06:42 Dose: 5,000 unit Ceftriaxone Sodium 2 gm/ (Dextrose) 100 mls @ 200 mls/hr IVPB DAILY [facility]; Protocol Last Admin: 08/26/18 10:22 Dose: 200 mls/hr Sodium Chloride (Normal Saline -) 1,000 mls @ 100 mls/hr IV ASDIR [facility] Last Admin: 08/26/18 10:22 Dose: 100 mls/hr Sodium Chloride (Normal Saline -) 250 mls @ 3,000 mls/hr IV PRN PRN PRN Reason: Hypotension during Dialysis Stop: 08/27/18 11:45 Sodium Chloride (Normal Saline -) 250 mls @ 3,000 mls/hr IV PRN PRN PRN Reason: Hypotension during Dialysis Stop: 08/28/18 07:23 Insulin Aspart (Novolog Vial Sliding Scale -) 1 vial SQ TIDAC [facility]; Protocol Last Admin: 08/26/18 16:49 Dose: Not Given Insulin Aspart (Novolog Vial Sliding Scale -) 1 vial SQ HS [facility]; Protocol Last Admin: 08/26/18 22:01 Dose: Not Given Lactobacillus Acidophilus (Bacid -) 1 tab PO DAILY [facility] Last Admin: 08/26/18 10:27 Dose: 1 tab Mupirocin (Bactroban 2% Cream -) 1 applic TP BID [facility] Last Admin: 08/27/18 02:00 Dose: 1 applic [id number]-[id number] Ethyl Esters (Lovaza -) 2 gm PO BID [facility] Last Admin: 08/26/18 22:00 Dose: 2 gm Ranitidine HCl (Zantac -) 150 mg PO BID [facility] Last Admin: 08/26/18 22:01 Dose: 150 mg Ranolazine (Ranexa -) 500 mg PO BID [facility] Last Admin: 08/26/18 22:01 Dose: 500 mg Sodium Chloride ([place] Nasal [place] -) 2 spray NS TID PRN PRN Reason: NASAL CONGESTION - Objective Vital Signs: Vital Signs Temperature 98.0 F 08/27/18 05:29 Pulse Rate 78 08/27/18 05:29 Respiratory Rate 20 08/27/18 05:29 Blood Pressure 118/72 08/27/18 05:29 O2 Sat by Pulse Oximetry (%) 95 08/27/18 01:25 Constitutional: Yes: No Distress, Calm Neck: Yes: Supple Cardiovascular: Yes: Regular Rate and Rhythm Respiratory: Yes: Regular, Diminished, On Nasal O2 Gastrointestinal: Yes: Normal Bowel Sounds, Soft, Abdomen, Obese Edema: Yes Edema: LLE: Trace, RLE: Trace Labs: CBC, BMP 08/27/18 06:40 08/27/18 06:40 INR, PTT INR 1.15 (0.83-1.09) H 08/27/18 06:40 - ....Imaging EKG: Report Reviewed (Tele: NSR) Problem List - Problems (1) NSTEMI (non-ST elevated myocardial infarction) Code(s): I21.4 - NON-ST ELEVATION (NSTEMI) MYOCARDIAL INFARCTION (2) Sepsis Code(s): A41.9 - SEPSIS, UNSPECIFIED ORGANISM Qualifiers: Sepsis type: sepsis due to unspecified organism Qualified Code(s): A41.9 - Sepsis, unspecified organism (3) Acute on chronic kidney failure Code(s): N17.9 - ACUTE KIDNEY FAILURE, UNSPECIFIED; N18.9 - CHRONIC KIDNEY DISEASE, UNSPECIFIED Qualifiers: Acute renal failure type: unspecified Chronic kidney disease stage: unspecified stage Qualified Code(s): N17.9 - Acute kidney failure, unspecified ; N18.9 - Chronic kidney disease, unspecified (4) Acute on chronic systolic (congestive) heart failure Code(s): I50.23 - ACUTE ON CHRONIC SYSTOLIC (CONGESTIVE) HEART FAILURE (5) Dyspnea due to congestive heart failure Code(s): I50.9 - HEART FAILURE, UNSPECIFIED (6) Elevated troponin Code(s): R79.89 - OTHER SPECIFIED ABNORMAL FINDINGS OF BLOOD CHEMISTRY (7) HLD (hyperlipidemia) Code(s): E78.5 - HYPERLIPIDEMIA, UNSPECIFIED Qualifiers: Hyperlipidemia type: pure hypercholesterolemia Qualified Code(s): E78.00 - Pure hypercholesterolemia, unspecified (8) HTN (hypertension) Code(s): I10 - ESSENTIAL (PRIMARY) HYPERTENSION Qualifiers: Hypertension type: essential hypertension Qualified Code(s): I10 - Essential (primary) hypertension (9) History of coronary artery stent placement Code(s): Z95.5 - PRESENCE OF CORONARY ANGIOPLASTY IMPLANT AND GRAFT (10) Hx of CABG Code(s): Z95.1 - PRESENCE OF AORTOCORONARY BYPASS GRAFT (11) ICD (implantable cardioverter-defibrillator) in place Code(s): Z95.810 - PRESENCE OF AUTOMATIC (IMPLANTABLE) CARDIAC DEFIBRILLATOR (12) Systolic heart failure Code(s): I50.20 - UNSPECIFIED SYSTOLIC (CONGESTIVE) HEART FAILURE Qualifiers: Heart failure chronicity: acute on chronic Qualified Code(s): I50.23 - Acute on chronic systolic (congestive) heart failure (13) Sleep apnea Code(s): G47.30 - SLEEP APNEA, UNSPECIFIED Qualifiers: Sleep apnea type: obstructive Qualified Code(s): G47.33 - Obstructive sleep apnea (adult) (pediatric) (14) Uremia Code(s): N19 - UNSPECIFIED KIDNEY FAILURE Assessment/Plan 08/18/2018 Echo: Poor windows 1. Acute on chronic class II-III NYHA classification LV failure related to LV systolic dysfunction, euvolemic 2. CAD post CT/CABG, PCI/stent, demand ischemic injury history of an abnormal MPI study angina pectoris, plan for conservative medical management 3. Aortic stenosis, mild 4. HTN 5. IDDM 6. Hypercholesterolemia 7. Post prophylactic ICD implant, history of NSVT 8. Acute on CKD with hyperkalemia and uremia on HD via femoral shiley 9. Anemia post transfusion 10. Gout 11. Obstructive sleep apnea 12. Left leg cellulitis PLAN: 1. HD pre renal, judicious hydration off diuretics with monitoring renal function and electrolytes 2. Continue Coreg 25 bid 3. Hold Entresto 26/26 bid pending renal function and hyperkalemia stabilization 4. Continue Ranexa 500 bid 5. Continue Norvasc 5 qd 6. Continue Lipitor 80 qhs and Lovaza 2 bid 7. Continue Plavix 75 qd and ASA 81 qd with caution in view of the above noted anemia, transfuse as needed to maintain Hg equal or > 8.0 8. Complete antibiotic course as per the primary team 9. As outlined in the prior note plan to pursue medical management and therapy optimization and deferring any invasive strategy in view of the above noted CKD with acute exacerbation 10. DVT prophylaxis 11. Eventual RUE AVF
[2018-08-27] MEDS: LACTOBACILLUS ACIDOPHILUS 1 TABLET PO SCH (10:58)
[2018-08-27] MEDS: RANOLAZINE E.R. 500 MG TABLET (FP) PO SCH (10:58)
[2018-08-27] MEDS: CARVEDILOL 25 MG TABLET (FP) PO SCH (10:58)
[2018-08-27] MEDS: ASPIRIN 81 MG CHEWABLE TABLETS PO SCH (10:58)
[2018-08-27] MEDS: CLOPIDOGREL BISULFATE 75 MG TABLET (FP) PO SCH (10:58)
[2018-08-27] MEDS: OMEGA-3 ACID ETHYL ESTERS (FATTY-ACIDS) 1 GM CAPSULE (FP) PO SCH (10:58)
[2018-08-27] MEDS: INSULIN SLIDING SCALE (NOVOLOG) 1 VIAL SQ SCH ×3 (11:00→17:35)
[2018-08-27] MEDS: RANITIDINE HCL 150 MG TABLET (FP) PO SCH (11:00)
--- NOTE | 2018-08-27 11:15 | PN ---
Progress Note, Physician History of Present Illness: pulmonary alert,comfortable ,-sob,+ asterixis - Current Medication List Current Medications: Active Medications Acetaminophen (Tylenol -) 650 mg PO Q4H PRN PRN Reason: FEVER Albumin Human (Albumin Human 25%) 12.5 gm IVPB Q30M [facility] Aspirin (Asa -) 81 mg PO DAILY [facility] Last Admin: 08/27/18 10:58 Dose: 81 mg Atorvastatin Calcium (Lipitor -) 80 mg PO HS [facility] Last Admin: 08/26/18 22:00 Dose: 80 mg Calcium Acetate (Phoslo -) 1,334 mg PO TIDCM [facility] Last Admin: 08/27/18 08:00 Dose: 1,334 mg Carvedilol (Coreg -) 25 mg PO BID [facility] Last Admin: 08/27/18 10:58 Dose: 25 mg Clopidogrel Bisulfate (Plavix -) 75 mg PO DAILY [facility] Last Admin: 08/27/18 10:58 Dose: 75 mg Fluticasone Propionate (Flonase -) 1 spray NS BID [facility] Last Admin: 08/27/18 04:14 Dose: Not Given Heparin Sodium (Porcine) (Heparin -) 5,000 unit SQ TID [facility] Last Admin: 08/27/18 06:42 Dose: 5,000 unit Ceftriaxone Sodium 2 gm/ (Dextrose) 100 mls @ 200 mls/hr IVPB DAILY [facility]; Protocol Last Admin: 08/26/18 10:22 Dose: 200 mls/hr Sodium Chloride (Normal Saline -) 1,000 mls @ 100 mls/hr IV ASDIR [facility] Last Admin: 08/26/18 10:22 Dose: 100 mls/hr Sodium Chloride (Normal Saline -) 250 mls @ 3,000 mls/hr IV PRN PRN PRN Reason: Hypotension during Dialysis Stop: 08/27/18 11:45 Sodium Chloride (Normal Saline -) 250 mls @ 3,000 mls/hr IV PRN PRN PRN Reason: Hypotension during Dialysis Stop: 08/28/18 07:23 Insulin Aspart (Novolog Vial Sliding Scale -) 1 vial SQ TIDAC [facility]; Protocol Last Admin: 08/27/18 11:00 Dose: Not Given Insulin Aspart (Novolog Vial Sliding Scale -) 1 vial SQ HS [facility]; Protocol Last Admin: 08/26/18 22:01 Dose: Not Given Lactobacillus Acidophilus (Bacid -) 1 tab PO DAILY [facility] Last Admin: 08/27/18 10:58 Dose: 1 tab Mupirocin (Bactroban 2% Cream -) 1 applic TP BID [facility] Last Admin: 08/27/18 09:30 Dose: 1 applic Fownf-5-Okhc Ethyl Esters (Lovaza -) 2 gm PO BID [facility] Last Admin: 08/27/18 10:58 Dose: 2 gm Ranitidine HCl (Zantac -) 150 mg PO BID [facility] Last Admin: 08/27/18 11:00 Dose: 150 mg Ranolazine (Ranexa -) 500 mg PO BID [facility] Last Admin: 08/27/18 10:58 Dose: 500 mg Sodium Chloride ([place] Nasal [place] -) 2 spray NS TID PRN PRN Reason: NASAL CONGESTION - Objective Vital Signs: Vital Signs Temperature 98.0 F 08/27/18 05:29 Pulse Rate 78 08/27/18 05:29 Respiratory Rate 20 08/27/18 05:29 Blood Pressure 118/72 08/27/18 05:29 O2 Sat by Pulse Oximetry (%) 95 08/27/18 01:25 Constitutional: Yes: Calm, Obese Eyes: Yes: WNL HENT: Yes: WNL Neck: Yes: WNL Cardiovascular: Yes: Regular Rate and Rhythm, S1, S2 Respiratory: Yes: Diminished Gastrointestinal: Yes: Normal Bowel Sounds, Soft Extremities: Yes: WNL Edema: No Labs: CBC, BMP 08/27/18 06:40 08/27/18 06:40 INR, PTT INR 1.15 (0.83-1.09) H 08/27/18 06:40 Problem List - Problems (1) NSTEMI (non-ST elevated myocardial infarction) Code(s): I21.4 - NON-ST ELEVATION (NSTEMI) MYOCARDIAL INFARCTION (2) Sepsis Code(s): A41.9 - SEPSIS, UNSPECIFIED ORGANISM Qualifiers: Sepsis type: sepsis due to unspecified organism Qualified Code(s): A41.9 - Sepsis, unspecified organism (3) Troponin I above reference range Code(s): R74.8 - ABNORMAL LEVELS OF OTHER SERUM ENZYMES (4) Acute on chronic kidney failure Code(s): N17.9 - ACUTE KIDNEY FAILURE, UNSPECIFIED; N18.9 - CHRONIC KIDNEY DISEASE, UNSPECIFIED Qualifiers: Acute renal failure type: unspecified Chronic kidney disease stage: unspecified stage Qualified Code(s): N17.9 - Acute kidney failure, unspecified ; N18.9 - Chronic kidney disease, unspecified (5) Acute on chronic systolic (congestive) heart failure Code(s): I50.23 - ACUTE ON CHRONIC SYSTOLIC (CONGESTIVE) HEART FAILURE (6) Anemia Code(s): D64.9 - ANEMIA, UNSPECIFIED Qualifiers: Anemia type: unspecified type Qualified Code(s): D64.9 - Anemia, unspecified (7) Aortic valve stenosis Code(s): I35.0 - NONRHEUMATIC AORTIC (VALVE) STENOSIS Qualifiers: Cardiac valve disease etiology: nonrheumatic Qualified Code(s): I35.0 - Nonrheumatic aortic (valve) stenosis (8) CAD (coronary artery disease) Code(s): I25.10 - ATHSCL HEART DISEASE OF [place] CORONARY ARTERY W/O ANG PCTRS Qualifiers: Coronary Disease-Associated Artery/Lesion type: [place] artery [place] vs. transplanted heart: [place] heart Associated angina: without angina Qualified Code(s): I25.10 - Atherosclerotic heart disease of [place] coronary artery without angina pectoris (9) CKD stage 4 due to type 2 diabetes mellitus Code(s): E11.22 - TYPE 2 DIABETES MELLITUS W DIABETIC CHRONIC KIDNEY DISEASE; N18.4 - CHRONIC KIDNEY DISEASE, STAGE 4 (SEVERE) (10) History of coronary artery stent placement Code(s): Z95.5 - PRESENCE OF CORONARY ANGIOPLASTY IMPLANT AND GRAFT (11) Hx of CABG Code(s): Z95.1 - PRESENCE OF AORTOCORONARY BYPASS GRAFT (12) ICD (implantable cardioverter-defibrillator) in place Code(s): Z95.810 - PRESENCE OF AUTOMATIC (IMPLANTABLE) CARDIAC DEFIBRILLATOR Assessment/Plan ASSESSMENT AND PLAN: Acute on Chronic Systolic Heart Failure Acute NSTEMI CAD s/p CABG Acute on Chronic Renal Failure HTN DM Cellulitis Anemia - antibiotics - HD as per renal - daily weights - keep net negative - ASA, plavix - beta sandee, statin - O2 to keep SpO2 >90% - monitor lytes,renal function,h+h DR PRIETO
[2018-08-27] MEDS: CEFTRIAXONE 2 GM in DEXTROSE 5%-WATER 100 ML IVPB SCH (12:48)
--- NOTE | 2018-08-27 13:54 | PN ---
Progress Note (short form) - Note Progress Note: Tremors of hands Off Insulin pump as pt unable manage it b/o tremors of hands Vital Signs Period Temp Pulse Resp BP Sys/Gallo Pulse Ox Last 24 Hr 98.0 F-98.8 F 72-97 18-20 116-137/57-81 95-95 PE: AOx3 Neck: Supple, HEENT: EOMI Lungs: cTA CVS: S1S2 Abd: Benign EXt: slight erythema left 2nd toe Neuro: No focal deficit CMP Sodium 135 mmol/L (136-145) L 08/27/18 06:40 Potassium 4.8 mmol/L (3.5-5.1) 08/27/18 06:40 Chloride 99 mmol/L (98-107) 08/27/18 06:40 Carbon Dioxide 25 mmol/L (21-32) 08/27/18 06:40 Anion Gap 11 MMOL/L (8-16) 08/27/18 06:40 BUN 111 mg/dL (7-18) H* 08/27/18 06:40 Creatinine 5.6 mg/dL (0.55-1.3) H 08/27/18 06:40 Creat Clearance w eGFR 10.59 (>60) 08/27/18 06:40 POC Glucometer 237 UNITS (80-120) 08/27/18 12:07 Random Glucose 265 mg/dL (74-106) H 08/27/18 06:40 Hemoglobin A1c % 6.0 % (4.2-6.3) 08/19/18 05:15 Lactic Acid 1.1 mmol/L (0.4-2.0) 08/17/18 20:20 Calcium 7.8 mg/dL (8.5-10.1) L 08/27/18 06:40 Phosphorus 7.0 mg/dL (2.5-4.9) H 08/27/18 06:40 Magnesium 2.5 mg/dL (1.8-2.4) H 08/27/18 06:40 Total Bilirubin 0.3 mg/dL (0.2-1) 08/27/18 06:40 AST 27 U/L (15-37) 08/27/18 06:40 ALT 27 U/L (13-61) 08/27/18 06:40 Alkaline Phosphatase 87 U/L (45-117) 08/27/18 06:40 Creatine Kinase 402 IU/L (26-308) H 08/19/18 05:15 Creatine Kinase Index 2.8 % (0.0-5.0) 08/19/18 05:15 CK-MB (CK-2) 11.6 ng/mL (0.5-3.6) H 08/19/18 05:15 Troponin I 19.10 ng/ml (0.00-0.05) H* 08/19/18 05:15 B-Natriuretic Peptide 86877.6 pg/ml (5-125) H 08/20/18 05:30 Total Protein 6.6 g/dl (6.4-8.2) 08/27/18 06:40 Albumin 2.0 g/dl (3.4-5.0) L 08/27/18 06:40 Current Medications Generic Name Dose Route Start Last Admin Trade Name Freq PRN Reason Stop Dose Admin Acetaminophen 650 mg 08/24/18 20:52 Tylenol - PO Q4H PRN FEVER Albumin Human 12.5 gm 08/26/18 11:45 Albumin Human 25% IVPB Q30M [facility] Aspirin 81 mg 08/25/18 10:00 08/27/18 10:58 Asa - PO 81 mg DAILY [facility] Administration Atorvastatin Calcium 80 mg 08/24/18 22:00 08/26/18 22:00 Lipitor - PO 80 mg HS [facility] Administration Calcium Acetate 1,334 mg 08/24/18 17:30 08/27/18 12:49 Phoslo - PO 1,334 mg TIDCM [facility] Administration Carvedilol 25 mg 08/24/18 22:00 08/27/18 10:58 Coreg - PO 25 mg BID [facility] Administration Clopidogrel Bisulfate 75 mg 08/25/18 10:00 08/27/18 10:58 Plavix - PO 75 mg DAILY [facility] Administration Fluticasone Propionate 1 spray 08/24/18 22:00 08/27/18 04:14 Flonase - NS Not Given BID [facility] Heparin Sodium (Porcine) 5,000 unit 08/24/18 22:00 08/27/18 06:42 Heparin - SQ 5,000 unit TID [facility] Administration Ceftriaxone Sodium 2 gm/ 100 mls @ 200 mls/hr 08/25/18 10:00 08/27/18 12:48 Dextrose IVPB 200 mls/hr DAILY [facility] Administration Protocol Sodium Chloride 1,000 mls @ 100 mls/hr 08/26/18 09:45 08/26/18 10:22 Normal Saline - IV 100 mls/hr ASDIR [facility] Administration Sodium Chloride 250 mls @ 3,000 mls/hr 08/26/18 11:45 Normal Saline - IV 08/27/18 11:45 PRN PRN Hypotension during Dialysis Sodium Chloride 250 mls @ 3,000 mls/hr 08/27/18 07:23 Normal Saline - IV 08/28/18 07:23 PRN PRN Hypotension during Dialysis Insulin Aspart 1 vial 08/24/18 11:52 08/27/18 12:49 Novolog Vial Sliding Scale - SQ 14 units TIDAC [facility] Administration Protocol Insulin Aspart 1 vial 08/24/18 22:00 08/26/18 22:01 Novolog Vial Sliding Scale - SQ Not Given HS [facility] Protocol Lactobacillus Acidophilus 1 tab 08/25/18 10:00 08/27/18 10:58 Bacid - PO 1 tab DAILY [facility] Administration Mupirocin 1 applic 08/24/18 22:00 08/27/18 09:30 Bactroban 2% Cream - TP 1 applic BID [facility] Administration Cxrbl-0-[id number] Ethyl Esters 2 gm 08/24/18 22:00 08/27/18 10:58 Lovaza - PO 2 gm BID [facility] Administration Ranitidine HCl 150 mg 08/24/18 22:00 08/27/18 11:00 Zantac - PO 150 mg BID [facility] Administration Ranolazine 500 mg 08/24/18 22:00 08/27/18 10:58 Ranexa - PO 500 mg BID [facility] Administration Sodium Chloride 2 spray 08/24/18 20:52 [place] Nasal [place] - NS TID PRN NASAL CONGESTION AP: Left 2nd toe cellulitis: improving Osteomyelitis: Bone scan suspicious for osteo left 2nd toe T2DM On Insulin pump at home HECTOR on CKD HLD CAD/Elevated Troponins: Probably secondary to demand ischemia CHF BGM Q ACHS and 3 AM Off Insulin pump since morning as he couldn't manage it b/o tremors of hands Start Levemir 40 units daily at HS Novolog SS coverage IV abx vs Amputation of left 2nd toe Will f/u
--- NOTE | 2018-08-27 15:25 | PN ---
Physical Exam: SUBJECTIVE: Patient seen and examined at bed side this morning. Complaining of nose bleed from the dryness while using oxygen. Start Humidified oxygen. PT at bed side, patient very shaky and not able to walk. Emergent HD done yesterday. OBJECTIVE: Vital Signs Period Temp Pulse Resp BP Sys/Gallo Pulse Ox Last 24 Hr 98 F-98.8 F 75-97 18-20 116-137/57-81 95-95 GENERAL: Morbidly obese male, lying in bed comfortably, patient is awake, alert , and fully oriented but confused on/off, in no acute distress, at 3L NC. EYES: EOM Intact, no pallor or icterus. ENT: Ears normal, moist mucous membranes. NECK: Supple, JVD + LUNGS: Bibasilar crackles improved. HEART: Regular rate and rhythm, S1, S2 with soft systolic murmur. ABDOMEN: Soft, nontender, no organomegaly. UPPER EXTREMITIES: 2+ pulses, warm, well-perfused, no edema. LOWER EXTREMITIES: Left second toe-erythema has improved, mildly tender to touch. B/L pitting edema improved. NEUROLOGICAL: Asterexis ++ Right UE > LEFT UE. No facial droop. Normal speech, gait not observed. PSYCH: Normal mood, normal affect. SKIN: Warm, dry, normal turgor, no rashes or lesions noted Laboratory Results - last 24 hr 08/22/18 08/26/18 08/27/18 05:15 21:50 05:26 WBC RBC Hgb Hct MCV MCH MCHC RDW Plt Count MPV PT with INR INR Sodium Potassium Chloride Carbon Dioxide Anion Gap BUN Creatinine Creat Clearance w eGFR POC Glucometer 167 277 Random Glucose Calcium Phosphorus Magnesium Total Bilirubin AST ALT Alkaline Phosphatase Total Protein Albumin Fld [place] IgM [place] No Result Required. Lyme IgG W Blot Interp No Result Required. 08/27/18 08/27/18 08/27/18 06:40 06:40 06:40 WBC 6.6 RBC 2.56 L Hgb 7.5 L Hct 22.7 L MCV 88.4 MCH 29.4 MCHC 33.2 RDW 16.0 H Plt Count 305 MPV 6.9 L PT with INR 13.60 H INR 1.15 H Sodium 135 L Potassium 4.8 Chloride 99 Carbon Dioxide 25 Anion Gap 11 BUN 111 H* Creatinine 5.6 H Creat Clearance w eGFR 10.59 POC Glucometer Random Glucose 265 H Calcium 7.8 L Phosphorus 7.0 H Magnesium 2.5 H Total Bilirubin 0.3 AST 27 ALT 27 Alkaline Phosphatase 87 Total Protein 6.6 Albumin 2.0 L Fld [place] IgM [place] L[place] IgG W Blot Interp 08/27/18 08/27/18 12:07 14:30 WBC RBC Hgb Hct MCV MCH MCHC RDW Plt Count MPV PT with INR INR Sodium Potassium Chloride Carbon Dioxide Anion Gap BUN Creatinine Creat Clearance w eGFR POC Glucometer 237 251 Random Glucose Calcium Phosphorus Magnesium Total Bilirubin AST ALT Alkaline Phosphatase Total Protein Albumin Fld [place] IgM [place] IgG W Blot Interp Active Medications Generic Name Dose Route Start Last Admin Trade Name Freq PRN Reason Stop Dose Admin Acetaminophen 650 mg 08/24/18 20:52 Tylenol - PO Q4H PRN FEVER Albumin Human 12.5 gm 08/26/18 11:45 Albumin Human 25% IVPB Q30M CRIS Aspirin 81 mg 08/25/18 10:00 08/27/18 10:58 Asa - PO 81 mg DAILY [facility]IS Administration Atorvastatin Calcium 80 mg 08/24/18 22:00 08/26/18 22:00 Lipitor - PO 80 mg HS [facility]IS Administration Calcium Acetate 1,334 mg 08/24/18 17:30 08/27/18 12:49 Phoslo - PO 1,334 mg TIDCM [facility]IS Administration Carvedilol 25 mg 08/24/18 22:00 08/27/18 10:58 Coreg - PO 25 mg BID CRIS Administration Clopidogrel Bisulfate 75 mg 08/25/18 10:00 08/27/18 10:58 Plavix - PO 75 mg DAILY [facility]IS Administration Fluticasone Propionate 1 spray 08/24/18 22:00 08/27/18 04:14 Flonase - NS Not Given BID CRIS Heparin Sodium (Porcine) 5,000 unit 08/24/18 22:00 08/27/18 06:42 Heparin - SQ 5,000 unit TID [facility]IS Administration Ceftriaxone Sodium 2 gm/ 100 mls @ 200 mls/hr 08/25/18 10:00 08/27/18 12:48 Dextrose IVPB 200 mls/hr DAILY CRIS Administration Protocol Sodium Chloride 1,000 mls @ 100 mls/hr 08/26/18 09:45 08/26/18 10:22 Normal Saline - IV 100 mls/hr ASDIR CRIS Administration Sodium Chloride 250 mls @ 3,000 mls/hr 08/26/18 11:45 Normal Saline - IV 08/27/18 11:45 PRN PRN Hypotension during Dialysis Sodium Chloride 250 mls @ 3,000 mls/hr 08/27/18 07:23 Normal Saline - IV 08/28/18 07:23 PRN PRN Hypotension during Dialysis Insulin Aspart 1 vial 08/24/18 11:52 08/27/18 12:49 Novolog Vial Sliding Scale - SQ 14 units TIDAC CRIS Administration Protocol Insulin Aspart 1 vial 08/24/18 22:00 08/26/18 22:01 Novolog Vial Sliding Scale - SQ Not Given HS [facility] Protocol Insulin Detemir 40 units 08/27/18 22:00 Levemir Vial SQ HS [facility] Lactobacillus Acidophilus 1 tab 08/25/18 10:00 08/27/18 10:58 Bacid - PO 1 tab DAILY [facility] Administration Mupirocin 1 applic 08/24/18 22:00 08/27/18 09:30 Bactroban 2% Cream - TP 1 applic BID CRIS Administration [id number]-3-[id number] Ethyl Esters 2 gm 08/24/18 22:00 08/27/18 10:58 Lovaza - PO 2 gm BID [facility] Administration Ranitidine HCl 150 mg 08/24/18 22:00 08/27/18 11:00 Zantac - PO 150 mg BID [facility]IS Administration Ranolazine 500 mg 08/24/18 22:00 08/27/18 10:58 Ranexa - PO 500 mg BID [facility]IS Administration Sodium Chloride 2 spray 08/24/18 20:52 [place] Nasal [place] - NS TID PRN NASAL CONGESTION ECHO 08/18/18: Left ventricular size, thickness, function normal. Left atrium and right atrium mildly dilated. Moderate Aortic stenosis. Trace TR. Right ventricular systolic pressure 40-50 mmHg. Left toe xray-No acute pathology. 08/23/18 bone scan: Increased blood flow, blood pool an delayed activity in the region of the left second toe suspicious for osteomyelitis 08/24/18: Shallow inspiration, cardiomegaly, no evidence of pneumonia, CHF 08/25/17 CXR: No evidence of vascular congestive changes, pulmonary infiltrates, pneumothorax or pleural effusion. ASSESSMENT/PLAN: Patient is a 57 year old male with significant PMHx IDDM (on insulin pump), HTN , HLD, CAD s/p CABG and s/p AICD, CHF, Aortic stenosis, CKD, p/w fever, rigors, malaise x 1 day, admitted to ICU for NSTEMI and sepsis. # Uremia requiring urgent Dialysis First HD done 08/26/18, pending HD today. Astrexis is still present but improved. Confusion has resolved. Femoral shiley placed 08/26/18. Dialysis catheter to be placed. Short term vs long-term dialysis to be determined Renal diet. # Left second digit -suspicion for osteomyelitis Bone scan done 08/23/18, reports suspicious for osteomyelitis. Podiatry consulted, recommended either amputation or IV antibiotics Patient hasn't decided yet. For now continue IV Ceftriaxone 2gm daily. Random vanc 16.1 08/24/18 # Volume overload likely from acute on chronic systolic dysfunction and CKD- improving Off IV Lasix drip and dobutamine. Diaz in place, Urinary output 600/24 hrs, continue to monitor. Not on lasix as creatinine is getting worse. Daily weight. 293-->286 lbs--> 281--> 279 lbs 08/26/18 # NSTEMI: trops trending down. Continue Statin 80 mg HS Continue Aspirin 81 mg/Plavix Echo reviewed. Report as above Cardiology on board. # HECTOR on CKD likely secondary to hypoperfusion from Sepsis Creatiine 4.4--> 4.2-->4.1--> 6 -->7.6--> 5.6 Phosphorus and Mg high. On Phoslo. Avoid nephrotoxic drugs Renal on board # HTN-controlled now resume Coreg 25 mg PO BID # DM Using Insulin pump. Appreciate Endocrinology consult, started on Levemir 40 Units today. Watch for hypoglycemic episodes # FEN IV NS @100 mlshr. Electrolytes to be repeated in AM. Diabetic diet # Prophylaxis For DVT: On Heparin sq TID For GI: Ranitidine 150 mg BID # Code Status: Full Code # Dispo: Now in Tele/continuous cardiac monitoring. Illness, Investigation and Plan of care explained to the patient. He verbalized understanding. Case discussed with Dr. Levy. Visit type - Emergency Visit Emergency Visit: Yes ED Registration Date: 08/17/18 Care time: The patient presented to the Emergency Department on the above date and was hospitalized for further evaluation of their emergent condition. - New Patient This patient is new to me today: No - Critical Care Critical Care patient: No - Discharge Referral Referred to [facility] Med [facility] No
--- NOTE | 2018-08-27 16:09 | PN ---
Teaching Attending Note Name of Resident: Char Vera ATTENDING PHYSICIAN STATEMENT I saw and evaluated the patient. I reviewed the resident's note and discussed the case with the resident. I agree with the resident's findings and plan as documented. SUBJECTIVE: Mr Long says he is feeling better but still with significant tremors. No cp, sob, n/v. OBJECTIVE: Last Vital Signs Temp Pulse Resp BP Pulse Ox 37.4 C 75 18 126/63 95 08/27/18 15:29 08/27/18 15:29 08/27/18 15:29 08/27/18 15:29 08/27/18 01:25 Gen: nad, morbidly obese Pulm: ctab w/o w/r/r CV: rrr w/o m/r/g Abd: +bs, s/nt/nd Ext: no c/c/e CBC, BMP 08/27/18 06:40 08/27/18 06:40 ASSESSMENT AND PLAN: 1. HECTOR on CKD -case d/w Dr Pendleton -will receive another round of HD today -recheck labs in am 2. L foot osteomyelitis -seen by podiatry and ID -continue IV rocephin 3. CHF -exacerbation this hospital stay -diuresed -controlled 4. Diabetes -continue current management 5. HTN -improved off of amlodipine -continue coreg 6. HLD -continue lipitor 7. NSTEMI/CAD -cardiology following -continue medical management 8. Morbid obesity -will need outpatient weight loss plan 9. Toxic encephalopathy with tremors -secondary to uremia -improved but still elevated -plan for HD today Problem List - Problems (1) Septic shock Code(s): A41.9 - SEPSIS, UNSPECIFIED ORGANISM; R65.21 - SEVERE SEPSIS WITH SEPTIC SHOCK (2) Cellulitis Code(s): L03.90 - CELLULITIS, UNSPECIFIED Qualifiers: Site of cellulitis: extremity Site of cellulitis of extremity: lower extremity Laterality: left Qualified Code(s): L03.116 - Cellulitis of left lower limb (3) NSTEMI (non-ST elevated myocardial infarction) Code(s): I21.4 - NON-ST ELEVATION (NSTEMI) MYOCARDIAL INFARCTION (4) CKD stage 4 due to type 2 diabetes mellitus Code(s): E11.22 - TYPE 2 DIABETES MELLITUS W DIABETIC CHRONIC KIDNEY DISEASE; N18.4 - CHRONIC KIDNEY DISEASE, STAGE 4 (SEVERE) (5) Diabetes mellitus Code(s): E11.9 - TYPE 2 DIABETES MELLITUS WITHOUT COMPLICATIONS Qualifiers: Diabetes mellitus type: type 2 Diabetes mellitus complication status: without complication (6) HLD (hyperlipidemia) Code(s): E78.5 - HYPERLIPIDEMIA, UNSPECIFIED Qualifiers: Hyperlipidemia type: pure hypercholesterolemia Qualified Code(s): E78.00 - Pure hypercholesterolemia, unspecified (7) HTN (hypertension) Code(s): I10 - ESSENTIAL (PRIMARY) HYPERTENSION Qualifiers: Hypertension type: essential hypertension Qualified Code(s): I10 - Essential (primary) hypertension (8) ICD (implantable cardioverter-defibrillator) in place Code(s): Z95.810 - PRESENCE OF AUTOMATIC (IMPLANTABLE) CARDIAC DEFIBRILLATOR (9) Systolic heart failure Code(s): I50.20 - UNSPECIFIED SYSTOLIC (CONGESTIVE) HEART FAILURE Qualifiers: Heart failure chronicity: acute on chronic Qualified Code(s): I50.23 - Acute on chronic systolic (congestive) heart failure
[2018-08-27] MEDS ORDERED: EPOETIN ALFA 20,000 UNIT/1 ML VIAL IVPUSH ONE (18:00)
--- NOTE | 2018-08-27 18:18 | PN ---
Progress Note (short form) - Note Progress Note: Renal follow up for HECTOR on CKD Pt seen and examined at the bedside continues to have tremor of the hands, feels unable to relax hands no sob, cp, abd pain able to tolerate meals no vomiting non-oliguric Vital Signs Temperature 99.4 F 08/27/18 15:29 Pulse Rate 75 08/27/18 15:29 Respiratory Rate 18 08/27/18 15:29 Blood Pressure 126/63 08/27/18 15:29 O2 Sat by Pulse Oximetry (%) 95 08/27/18 01:25 Intake & Output 08/24/18 08/25/18 08/26/18 08/27/18 23:59 23:59 23:59 23:59 Intake Total 2479 920 9901 380 Output Total 012 284 6391 Balance 575 -200 -60 380 Weight 127.459 kg 126.915 kg NAD awake and alert RRR, no M/R DEc BS, no rales No LE edema + asterxis CBC, BMP 08/27/18 06:40 08/27/18 06:40 Current Medications Acetaminophen (Tylenol -) 650 mg PO Q4H PRN PRN Reason: FEVER Albumin Human (Albumin Human 25%) 12.5 gm IVPB Q30M [facility] Stop: 08/27/18 19:01 Aspirin (Asa -) 81 mg PO DAILY [facility] Last Admin: 08/27/18 10:58 Dose: 81 mg Atorvastatin Calcium (Lipitor -) 80 mg PO HS [facility] Last Admin: 08/26/18 22:00 Dose: 80 mg Calcium Acetate (Phoslo -) 1,334 mg PO TIDCM [facility] Last Admin: 08/27/18 12:49 Dose: 1,334 mg Carvedilol (Coreg -) 25 mg PO BID [facility] Last Admin: 08/27/18 10:58 Dose: 25 mg Clopidogrel Bisulfate (Plavix -) 75 mg PO DAILY [facility] Last Admin: 08/27/18 10:58 Dose: 75 mg Fluticasone Propionate (Flonase -) 1 spray NS BID [facility] Last Admin: 08/27/18 04:14 Dose: Not Given Heparin Sodium (Porcine) (Heparin -) 5,000 unit SQ TID [facility] Last Admin: 08/27/18 15:29 Dose: Not Given Ceftriaxone Sodium 2 gm/ (Dextrose) 100 mls @ 200 mls/hr IVPB DAILY [facility]; Protocol Last Admin: 08/27/18 12:48 Dose: 200 mls/hr Sodium Chloride (Normal Saline -) 1,000 mls @ 100 mls/hr IV ASDIR [facility] Last Admin: 08/26/18 10:22 Dose: 100 mls/hr Sodium Chloride (Normal Saline -) 250 mls @ 3,000 mls/hr IV PRN PRN PRN Reason: Hypotension during Dialysis Stop: 08/27/18 23:02 Insulin Aspart (Novolog Vial Sliding Scale -) 1 vial SQ TIDAC [facility]; Protocol Last Admin: 08/27/18 17:35 Dose: 18 units Insulin Aspart (Novolog Vial Sliding Scale -) 1 vial SQ HS [facility]; Protocol Last Admin: 08/26/18 22:01 Dose: Not Given Insulin Detemir (Levemir Vial) 40 units SQ HS [facility] Lactobacillus Acidophilus (Bacid -) 1 tab PO DAILY [facility] Last Admin: 08/27/18 10:58 Dose: 1 tab Mupirocin (Bactroban 2% Cream -) 1 applic TP BID [facility] Last Admin: 08/27/18 09:30 Dose: 1 applic [id number] Ethyl Esters (Lovaza -) 2 gm PO BID [facility] Last Admin: 08/27/18 10:58 Dose: 2 gm Ranitidine HCl (Zantac -) 150 mg PO BID [facility] Last Admin: 08/27/18 11:00 Dose: 150 mg Ranolazine (Ranexa -) 500 mg PO BID [facility] Last Admin: 08/27/18 10:58 Dose: 500 mg Sodium Chloride ([place] Nasal [place] -) 2 spray NS TID PRN PRN Reason: NASAL CONGESTION 57 year old gentleman with hx of 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 #HECTOR on CKD now likely due to volume depletion in setting of diuretics + hemodyanic changes #Sepsis syndrome from soft tissue infection r/o bacteremia #NSTEMI #Acute on chronic anemia #Hx of Hypertension #Lactic acidosis now resolved #Hypocalcemia/Hyperphosphtatemia #Volume overload requiring IV diuresis now resolved for second HD today with 0 UF s/p IVF yesterday Urine output improved over the past 24 hours K is improved s/p HD will reaccess in AM if pt will require further dialysis tomorrow Jose Manuel Pendleton DO
[2018-08-27] MEDS: ALBUMIN HUMAN 25% 12.5 GM/50 ML VIAL IVPB SCH ×2 (18:41→18:42)
[2018-08-27 18:57] LABS: HEMATOCRIT 19.2 % (35.4-49); MCH 30.3 pg (25.7-33.7); MCHC 34.7 g/dl (32.0-35.9); MEAN CELL VOLUME 87.1 fl (80-96); MEAN PLT VOLUME 7.2 fl (7.5-11.1); PLATELET COUNT 301 K/MM3 (134-434); RDW 16.3 % (11.9-15.9); WHITE BLOOD COUNT 6.1 K/mm3 (4.0-10.0)
[2018-08-27 19:03] LABS: HEMOGLOBIN 6.7 GM/dL (11.7-16.9)
[2018-08-27] MEDS ORDERED: INSULIN (LEVEMIR) 100 UNITS/ML UNITS SQ SCH (22:00)
[2018-08-28] MEDS: RANOLAZINE E.R. 500 MG TABLET (FP) PO SCH ×3 (00:10→22:00)
[2018-08-28] MEDS: OMEGA-3 ACID ETHYL ESTERS (FATTY-ACIDS) 1 GM CAPSULE (FP) PO SCH ×3 (00:10→22:00)
[2018-08-28] MEDS: RANITIDINE HCL 150 MG TABLET (FP) PO SCH ×3 (00:10→22:00)
[2018-08-28] MEDS: CARVEDILOL 25 MG TABLET (FP) PO SCH ×3 (00:10→22:00)
[2018-08-28] MEDS: INSULIN SLIDING SCALE (NOVOLOG) 1 VIAL SQ SCH ×5 (00:11→22:01)
[2018-08-28] MEDS: ATORVASTATIN CA 80 MG TABLET (FP) PO SCH ×2 (00:14→22:00)
[2018-08-28] MEDS: HEPARIN NA (PORCINE) 5,000 UNITS/ML 1ML VIAL SQ SCH ×4 (00:18→22:01)
[2018-08-28] MEDS: MUPIROCIN CA 2% TOPICAL CREAM 15 GM TUBE TP SCH ×3 (00:19→22:00)
[2018-08-28] MEDS: FLUTICASONE PROP 0.05% 16 GM NASAL SPRAY NS SCH ×3 (00:19→22:01)
[2018-08-28 08:03] LABS: INR 1.23 (0.83-1.09); PROTHROMBIN TIME (PATIENT) 14.5 SEC (9.7-13.0)
[2018-08-28 08:06] LABS: HEMATOCRIT 26.3 % (35.4-49); HEMOGLOBIN 9.2 GM/dL (11.7-16.9); MCH 29.8 pg (25.7-33.7); MCHC 35.1 g/dl (32.0-35.9); MEAN PLT VOLUME 7.2 fl (7.5-11.1); PLATELET COUNT 362 K/MM3 (134-434); RBC 3.09 M/mm3 (4.00-5.60); RDW 16.6 % (11.9-15.9); WHITE BLOOD COUNT 7.2 K/mm3 (4.0-10.0)
[2018-08-28 08:06] LABS: HEP.C VIRUS AB 0.1 s/co ratio (0.0-0.9)
[2018-08-28 08:40] LABS: ALBUMIN 2.1 g/dl (3.4-5.0); ALK PHOS 77 U/L (45-117); ANION GAP 10 MMOL/L (8-16); BILIRUBIN,TOTAL 0.8 mg/dL (0.2-1); BLOOD UREA NITROGEN 77 mg/dL (7-18); CHLORIDE 103 mmol/L (98-107); CO2 26 mmol/L (21-32); GLUCOSE,RANDOM 204 mg/dL (74-106); MAGNESIUM 2.3 mg/dL (1.8-2.4); PHOSPHOROUS 4.4 mg/dL (2.5-4.9); POTASSIUM 3.9 mmol/L (3.5-5.1); SGOT/AST 19 U/L (15-37); SGPT/ALT 24 U/L (13-61); SODIUM 138 mmol/L (136-145); TOT PROT 6.8 g/dl (6.4-8.2)
[2018-08-28] MEDS: CALCIUM ACETATE 667 MG CAPSULE (FP) PO SCH ×3 (08:58→17:55)
--- NOTE | 2018-08-28 09:14 | PN ---
Progress Note, Physician History of Present Illness: Denies orthopnea and dyspnea after diuresis which has been held due to acute on ckd requiring HD. Asterixis and tremors improved with HD. - Current Medication List Current Medications: Active Medications Acetaminophen (Tylenol -) 650 mg PO Q4H PRN PRN Reason: FEVER Aspirin (Asa -) 81 mg PO DAILY [facility] Last Admin: 08/27/18 10:58 Dose: 81 mg Atorvastatin Calcium (Lipitor -) 80 mg PO HS [facility] Last Admin: 08/28/18 00:14 Dose: 80 mg Calcium Acetate (Phoslo -) 1,334 mg PO TIDCM [facility] Last Admin: 08/27/18 21:01 Dose: 1,334 mg Carvedilol (Coreg -) 25 mg PO BID [facility] Last Admin: 08/28/18 00:10 Dose: 25 mg Clopidogrel Bisulfate (Plavix -) 75 mg PO DAILY [facility] Last Admin: 08/27/18 10:58 Dose: 75 mg Fluticasone Propionate (Flonase -) 1 spray NS BID [facility] Last Admin: 08/28/18 00:19 Dose: Not Given Heparin Sodium (Porcine) (Heparin -) 5,000 unit SQ TID [facility] Last Admin: 08/28/18 06:43 Dose: 5,000 unit Ceftriaxone Sodium 2 gm/ (Dextrose) 100 mls @ 200 mls/hr IVPB DAILY [facility]; Protocol Last Admin: 08/27/18 12:48 Dose: 200 mls/hr Sodium Chloride (Normal Saline -) 1,000 mls @ 100 mls/hr IV ASDIR [facility] Last Admin: 08/27/18 09:00 Dose: Not Given Insulin Aspart (Novolog Vial Sliding Scale -) 1 vial SQ TIDAC [facility]; Protocol Last Admin: 08/28/18 06:43 Dose: 14 units Insulin Aspart (Novolog Vial Sliding Scale -) 1 vial SQ HS [facility]; Protocol Last Admin: 08/28/18 00:11 Dose: 6 units Insulin Detemir (Levemir Vial) 40 units SQ HS [facility] Last Admin: 08/28/18 00:11 Dose: 40 units Lactobacillus Acidophilus (Bacid -) 1 tab PO DAILY [facility] Last Admin: 08/27/18 10:58 Dose: 1 tab Mupirocin (Bactroban 2% Cream -) 1 applic TP BID [facility] Last Admin: 08/28/18 00:19 Dose: Not Given Ifvpv-6-Waag Ethyl Esters (Lovaza -) 2 gm PO BID [facility] Last Admin: 08/28/18 00:10 Dose: 2 gm Ranitidine HCl (Zantac -) 150 mg PO BID [facility] Last Admin: 08/28/18 00:10 Dose: 150 mg Ranolazine (Ranexa -) 500 mg PO BID [facility] Last Admin: 08/28/18 00:10 Dose: 500 mg Sodium Chloride ([place] Nasal [place] -) 2 spray NS TID PRN PRN Reason: NASAL CONGESTION - Objective Vital Signs: Vital Signs Temperature 98.8 F 08/28/18 01:50 Pulse Rate 74 08/28/18 06:00 Respiratory Rate 20 08/28/18 06:00 Blood Pressure 147/60 08/28/18 06:00 O2 Sat by Pulse Oximetry (%) 97 08/27/18 20:56 Constitutional: Yes: No Distress, Calm Neck: Yes: Supple Cardiovascular: Yes: Regular Rate and Rhythm Respiratory: Yes: Regular, Diminished, On Nasal O2 Gastrointestinal: Yes: Normal Bowel Sounds, Soft, Abdomen, Obese Edema: Yes Edema: LLE: Trace, RLE: Trace Labs: CBC, BMP 08/28/18 06:30 08/28/18 06:30 INR, PTT INR 1.23 (0.83-1.09) H 08/28/18 06:30 - ....Imaging EKG: Report Reviewed (Tele: NSR) Problem List - Problems (1) NSTEMI (non-ST elevated myocardial infarction) Code(s): I21.4 - NON-ST ELEVATION (NSTEMI) MYOCARDIAL INFARCTION (2) Sepsis Code(s): A41.9 - SEPSIS, UNSPECIFIED ORGANISM Qualifiers: Sepsis type: sepsis due to unspecified organism Qualified Code(s): A41.9 - Sepsis, unspecified organism (3) Acute on chronic kidney failure Code(s): N17.9 - ACUTE KIDNEY FAILURE, UNSPECIFIED; N18.9 - CHRONIC KIDNEY DISEASE, UNSPECIFIED Qualifiers: Acute renal failure type: unspecified Chronic kidney disease stage: unspecified stage Qualified Code(s): N17.9 - Acute kidney failure, unspecified ; N18.9 - Chronic kidney disease, unspecified (4) Acute on chronic systolic (congestive) heart failure Code(s): I50.23 - ACUTE ON CHRONIC SYSTOLIC (CONGESTIVE) HEART FAILURE (5) Dyspnea due to congestive heart failure Code(s): I50.9 - HEART FAILURE, UNSPECIFIED (6) Elevated troponin Code(s): R79.89 - OTHER SPECIFIED ABNORMAL FINDINGS OF BLOOD CHEMISTRY (7) HLD (hyperlipidemia) Code(s): E78.5 - HYPERLIPIDEMIA, UNSPECIFIED Qualifiers: Hyperlipidemia type: pure hypercholesterolemia Qualified Code(s): E78.00 - Pure hypercholesterolemia, unspecified (8) HTN (hypertension) Code(s): I10 - ESSENTIAL (PRIMARY) HYPERTENSION Qualifiers: Hypertension type: essential hypertension Qualified Code(s): I10 - Essential (primary) hypertension (9) History of coronary artery stent placement Code(s): Z95.5 - PRESENCE OF CORONARY ANGIOPLASTY IMPLANT AND GRAFT (10) Hx of CABG Code(s): Z95.1 - PRESENCE OF AORTOCORONARY BYPASS GRAFT (11) ICD (implantable cardioverter-defibrillator) in place Code(s): Z95.810 - PRESENCE OF AUTOMATIC (IMPLANTABLE) CARDIAC DEFIBRILLATOR (12) Systolic heart failure Code(s): I50.20 - UNSPECIFIED SYSTOLIC (CONGESTIVE) HEART FAILURE Qualifiers: Heart failure chronicity: acute on chronic Qualified Code(s): I50.23 - Acute on chronic systolic (congestive) heart failure (13) Sleep apnea Code(s): G47.30 - SLEEP APNEA, UNSPECIFIED Qualifiers: Sleep apnea type: obstructive Qualified Code(s): G47.33 - Obstructive sleep apnea (adult) (pediatric) (14) Uremia Code(s): N19 - UNSPECIFIED KIDNEY FAILURE Assessment/Plan 08/18/2018 Echo: Poor windows 1. Acute on chronic class II-III NYHA classification LV failure related to LV systolic dysfunction, euvolemic 2. CAD post IA/CABG, PCI/stent, demand ischemic injury history of an abnormal MPI study angina pectoris, plan for conservative medical management 3. Aortic stenosis, mild 4. HTN 5. IDDM 6. Hypercholesterolemia 7. Post prophylactic ICD implant, history of NSVT 8. Acute on CKD with hyperkalemia and uremia due to volume depletion in setting of diuretics + hemodyanic changes on HD via femoral shiley 9. Anemia post transfusion 10. Gout 11. Obstructive sleep apnea 12. Left leg cellulitis PLAN: 1. HD pre renal, off diuretics with monitoring renal function and electrolytes 2. Continue Coreg 25 bid 3. Hold Entresto / bid pending renal function and hyperkalemia stabilization 4. Continue Ranexa 500 bid 5. Continue Norvasc 5 qd 6. Continue Lipitor 80 qhs and Lovaza 2 bid 7. Continue Plavix 75 qd and ASA 81 qd with caution in view of the above noted anemia, transfuse as needed to maintain Hg equal or > 8.0 8. Complete antibiotic course as per the primary team 9. As outlined in the prior note plan to pursue medical management and therapy optimization and deferring any invasive strategy in view of the above noted CKD with acute exacerbation 10. DVT prophylaxis 11. Eventual RUE AVF
[2018-08-28] MEDS ORDERED: DEXTROSE 5%-WATER 100 ML IVPB ONE (09:28)
--- NOTE | 2018-08-28 10:06 | PN ---
Progress Note, Physician Chief Complaint: PULMONARY ALERT,COMFORTABLE,-RESP DISTRESS,IMPROVING ASTERIXIS AFTER DIALYSIS - Current Medication List Current Medications: Active Medications Acetaminophen (Tylenol -) 650 mg PO Q4H PRN PRN Reason: FEVER Aspirin (Asa -) 81 mg PO DAILY [facility] Last Admin: 08/27/18 10:58 Dose: 81 mg Atorvastatin Calcium (Lipitor -) 80 mg PO HS [facility] Last Admin: 08/28/18 00:14 Dose: 80 mg Calcium Acetate (Phoslo -) 1,334 mg PO TIDCM [facility] Last Admin: 08/27/18 21:01 Dose: 1,334 mg Carvedilol (Coreg -) 25 mg PO BID [facility] Last Admin: 08/28/18 00:10 Dose: 25 mg Clopidogrel Bisulfate (Plavix -) 75 mg PO DAILY [facility] Last Admin: 08/27/18 10:58 Dose: 75 mg Fluticasone Propionate (Flonase -) 1 spray NS BID [facility] Last Admin: 08/28/18 00:19 Dose: Not Given Heparin Sodium (Porcine) (Heparin -) 5,000 unit SQ TID [facility] Last Admin: 08/28/18 06:43 Dose: 5,000 unit Ceftriaxone Sodium 2 gm/ (Dextrose) 100 mls @ 200 mls/hr IVPB DAILY [facility]; Protocol Last Admin: 08/27/18 12:48 Dose: 200 mls/hr Sodium Chloride (Normal Saline -) 1,000 mls @ 100 mls/hr IV ASDIR [facility] Last Admin: 08/27/18 09:00 Dose: Not Given Insulin Aspart (Novolog Vial Sliding Scale -) 1 vial SQ TIDAC [facility]; Protocol Last Admin: 08/28/18 06:43 Dose: 14 units Insulin Aspart (Novolog Vial Sliding Scale -) 1 vial SQ [facility]; Protocol Last Admin: 08/28/18 00:11 Dose: 6 units Insulin Detemir (Levemir Vial) 40 units SQ HS [facility] Last Admin: 08/28/18 00:11 Dose: 40 units Lactobacillus Acidophilus (Bacid -) 1 tab PO DAILY [facility] Last Admin: 08/27/18 10:58 Dose: 1 tab Mupirocin (Bactroban 2% Cream -) 1 applic TP BID [facility] Last Admin: 08/28/18 00:19 Dose: Not Given Ttkeo-8-Ymvz Ethyl Esters (Lovaza -) 2 gm PO BID [facility] Last Admin: 08/28/18 00:10 Dose: 2 gm Ranitidine HCl (Zantac -) 150 mg PO BID [facility] Last Admin: 08/28/18 00:10 Dose: 150 mg Ranolazine (Ranexa -) 500 mg PO BID [facility] Last Admin: 08/28/18 00:10 Dose: 500 mg Sodium Chloride ([place]al [place] -) 2 spray NS TID PRN PRN Reason: NASAL CONGESTION - Objective Vital Signs: Vital Signs Temperature 98.8 F 08/28/18 01:50 Pulse Rate 74 08/28/18 06:00 Respiratory Rate 20 08/28/18 06:00 Blood Pressure 147/60 08/28/18 06:00 O2 Sat by Pulse Oximetry (%) 97 08/27/18 20:56 Constitutional: Yes: Well Nourished, Calm, Obese Eyes: Yes: WNL HENT: Yes: WNL Neck: Yes: WNL Cardiovascular: Yes: Regular Rate and Rhythm, S1, S2 Respiratory: Yes: Diminished Gastrointestinal: Yes: Normal Bowel Sounds, Soft Extremities: Yes: WNL Edema: No Labs: CBC, BMP 08/28/18 06:30 08/28/18 06:30 INR, PTT INR 1.23 (0.83-1.09) H 08/28/18 06:30 Problem List - Problems (1) NSTEMI (non-ST elevated myocardial infarction) Code(s): I21.4 - NON-ST ELEVATION (NSTEMI) MYOCARDIAL INFARCTION (2) Sepsis Code(s): A41.9 - SEPSIS, UNSPECIFIED ORGANISM Qualifiers: Sepsis type: sepsis due to unspecified organism Qualified Code(s): A41.9 - Sepsis, unspecified organism (3) Troponin I above reference range Code(s): R74.8 - ABNORMAL LEVELS OF OTHER SERUM ENZYMES (4) Acute on chronic kidney failure Code(s): N17.9 - ACUTE KIDNEY FAILURE, UNSPECIFIED; N18.9 - CHRONIC KIDNEY DISEASE, UNSPECIFIED Qualifiers: Acute renal failure type: unspecified Chronic kidney disease stage: unspecified stage Qualified Code(s): N17.9 - Acute kidney failure, unspecified ; N18.9 - Chronic kidney disease, unspecified (5) Acute on chronic systolic (congestive) heart failure Code(s): I50.23 - ACUTE ON CHRONIC SYSTOLIC (CONGESTIVE) HEART FAILURE (6) Anemia Code(s): D64.9 - ANEMIA, UNSPECIFIED Qualifiers: Anemia type: unspecified type Qualified Code(s): D64.9 - Anemia, unspecified (7) Aortic valve stenosis Code(s): I35.0 - NONRHEUMATIC AORTIC (VALVE) STENOSIS Qualifiers: Cardiac valve disease etiology: nonrheumatic Qualified Code(s): I35.0 - Nonrheumatic aortic (valve) stenosis (8) CAD (coronary artery disease) Code(s): I25.10 - ATHSCL HEART DISEASE OF [place] CORONARY ARTERY W/O ANG PCTRS Qualifiers: Coronary Disease-Associated Artery/Lesion type: [place] artery [place] vs. transplanted heart: [place] heart Associated angina: without angina Qualified Code(s): I25.10 - Atherosclerotic heart disease of [place] coronary artery without angina pectoris (9) CKD stage 4 due to type 2 diabetes mellitus Code(s): E11.22 - TYPE 2 DIABETES MELLITUS W DIABETIC CHRONIC KIDNEY DISEASE; N18.4 - CHRONIC KIDNEY DISEASE, STAGE 4 (SEVERE) (10) History of coronary artery stent placement Code(s): Z95.5 - PRESENCE OF CORONARY ANGIOPLASTY IMPLANT AND GRAFT (11) Hx of CABG Code(s): Z95.1 - PRESENCE OF AORTOCORONARY BYPASS GRAFT (12) ICD (implantable cardioverter-defibrillator) in place Code(s): Z95.810 - PRESENCE OF AUTOMATIC (IMPLANTABLE) CARDIAC DEFIBRILLATOR Assessment/Plan ASSESSMENT AND PLAN: Acute on Chronic Systolic Heart Failure Acute NSTEMI CAD s/p CABG Acute on Chronic Renal Failure HTN DM Cellulitis Anemia - antibiotics - HD as per renal - daily weights - ASA, plavix - beta sandee, statin - O2 to keep SpO2 >90% - monitor lytes,renal function,h+h DR PRIETO
[2018-08-28] MEDS: CEFTRIAXONE 2 GM in DEXTROSE 5%-WATER 100 ML IVPB SCH (10:10)
[2018-08-28] MEDS: LACTOBACILLUS ACIDOPHILUS 1 TABLET PO SCH (10:11)
[2018-08-28] MEDS: CLOPIDOGREL BISULFATE 75 MG TABLET (FP) PO SCH (10:11)
[2018-08-28] MEDS: ASPIRIN 81 MG CHEWABLE TABLETS PO SCH (10:11)
[2018-08-28] MEDS: SODIUM CHLORIDE 1,000 ML IV SCH (10:59)
[2018-08-28] MEDS ORDERED: SODIUM CHLORIDE 250 ML IV PRN (11:11)
--- NOTE | 2018-08-28 11:16 | PN ---
Progress Note (short form) - Note Progress Note: Renal follow up for HECTOR on CKD Pt seen and examined at the bedside appear to be much better reports slight hand tremor no sob, cp, abd pain making urine via joiner Vital Signs Temperature 98.5 F 08/28/18 10:00 Pulse Rate 74 08/28/18 10:00 Respiratory Rate 20 08/28/18 10:00 Blood Pressure 125/71 08/28/18 10:00 O2 Sat by Pulse Oximetry (%) 97 08/27/18 20:56 Intake & Output 08/25/18 08/26/18 08/27/18 08/28/18 23:59 23:59 23:59 23:59 Intake Total 400 1040 930 Output Total 600 1100 300 600 Balance -200 -60 630 -600 Weight 127.459 kg 126.915 kg 128.094 kg NAD awake and alert RRR, no M/R DEc BS, no rales trace LE edema CBC, BMP 08/28/18 06:30 08/28/18 06:30 Current Medications Acetaminophen (Tylenol -) 650 mg PO Q4H PRN PRN Reason: FEVER Aspirin (Asa -) 81 mg PO DAILY [facility] Last Admin: 08/28/18 10:11 Dose: 81 mg Atorvastatin Calcium (Lipitor -) 80 mg PO HS [facility] Last Admin: 08/28/18 00:14 Dose: 80 mg Calcium Acetate (Phoslo -) 1,334 mg PO TIDCM [facility] Last Admin: 08/28/18 08:58 Dose: 1,334 mg Carvedilol (Coreg -) 25 mg PO BID [facility] Last Admin: 08/28/18 10:11 Dose: 25 mg Clopidogrel Bisulfate (Plavix -) 75 mg PO DAILY [facility] Last Admin: 08/28/18 10:11 Dose: 75 mg Fluticasone Propionate (Flonase -) 1 spray NS BID [facility] Last Admin: 08/28/18 00:19 Dose: Not Given Heparin Sodium (Porcine) (Heparin -) 5,000 unit SQ TID [facility] Last Admin: 08/28/18 06:43 Dose: 5,000 unit Ceftriaxone Sodium 2 gm/ (Dextrose) 100 mls @ 200 mls/hr IVPB DAILY [facility]; Protocol Last Admin: 08/28/18 10:10 Dose: 200 mls/hr Sodium Chloride (Normal Saline -) 1,000 mls @ 100 mls/hr IV ASDIR [facility] Last Admin: 08/28/18 10:59 Dose: Not Given Sodium Chloride (Normal Saline -) 250 mls @ 3,000 mls/hr IV PRN PRN PRN Reason: Hypotension during Dialysis Stop: 08/29/18 11:11 Insulin Aspart (Novolog Vial Sliding Scale -) 1 vial SQ TIDAC [facility]; Protocol Last Admin: 08/28/18 06:43 Dose: 14 units Insulin Aspart (Novolog Vial Sliding Scale -) 1 vial SQ HS [facility]; Protocol Last Admin: 08/28/18 00:11 Dose: 6 units Insulin Detemir (Levemir Vial) 40 units SQ HS [facility] Last Admin: 08/28/18 00:11 Dose: 40 units Lactobacillus Acidophilus (Bacid -) 1 tab PO DAILY [facility] Last Admin: 08/28/18 10:11 Dose: 1 tab Mupirocin (Bactroban 2% Cream -) 1 applic TP BID [facility] Last Admin: 08/28/18 00:19 Dose: Not Given Kpkxz-4-Gjzl Ethyl Esters (Lovaza -) 2 gm PO BID [facility] Last Admin: 08/28/18 10:11 Dose: 2 gm Ranitidine HCl (Zantac -) 150 mg PO BID [facility] Last Admin: 08/28/18 10:11 Dose: 150 mg Ranolazine (Ranexa -) 500 mg PO BID [facility] Last Admin: 08/28/18 10:11 Dose: 500 mg Sodium Chloride ([place] Nasal [place] -) 2 spray NS TID PRN PRN Reason: NASAL CONGESTION 57 year old gentleman with hx of 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 #HECTOR on CKD now likely due to volume depletion in setting of diuretics + hemodyanic changes #Sepsis syndrome from soft tissue infection + osteomylitis #NSTEMI #Acute on chronic anemia #Hx of Hypertension #Lactic acidosis now resolved #Hypocalcemia/Hyperphosphtatemia #Volume overload requiring IV diuresis now resolved Clinically improved at this time will plan for 1 additional HD today and then plan to remove catheter and trend renal function off dialysis off diuretics and ELROY/ARB s/p 2 prbc transfusion with good response stool occult blood negative from 08/22, no bleeding or bruising noted at HD catheter site will continue MARCI 3x weekly for CKD related anemia check iron studies continue Abx for osteomylitis Jos eManuel Pendleton DO
--- NOTE | 2018-08-28 11:45 | PN ---
Progress Note (short form) - Note Progress Note: Feels better today Decrease tremors of hands Vital Signs Period Temp Pulse Resp BP Sys/Gallo Pulse Ox Last 24 Hr 98.2 F-99.5 F 68-106 18-20 89-151/41-84 97 PE: AOx3 Neck: Supple, HEENT: EOMI Lungs: cTA CVS: S1S2 Abd: Benign EXt: slight erythema left 2nd toe Neuro: No focal deficit CMP Sodium 138 mmol/L (136-145) 08/28/18 06:30 Potassium 3.9 mmol/L (3.5-5.1) 08/28/18 06:30 Chloride 103 mmol/L (98-107) 08/28/18 06:30 Carbon Dioxide 26 mmol/L (21-32) 08/28/18 06:30 Anion Gap 10 MMOL/L (8-16) 08/28/18 06:30 BUN 77 mg/dL (7-18) H 08/28/18 06:30 Creatinine 4.0 mg/dL (0.55-1.3) H 08/28/18 06:30 Creat Clearance w eGFR 15.61 (>60) 08/28/18 06:30 POC Glucometer 229 UNITS (80-120) 08/28/18 11:01 Random Glucose 204 mg/dL (74-106) H 08/28/18 06:30 Hemoglobin A1c % 6.0 % (4.2-6.3) 08/19/18 05:15 Lactic Acid 1.1 mmol/L (0.4-2.0) 08/17/18 20:20 Calcium 8.0 mg/dL (8.5-10.1) L 08/28/18 06:30 Phosphorus 4.4 mg/dL (2.5-4.9) 08/28/18 06:30 Magnesium 2.3 mg/dL (1.8-2.4) 08/28/18 06:30 Total Bilirubin 0.8 mg/dL (0.2-1) 08/28/18 06:30 AST 19 U/L (15-37) 08/28/18 06:30 ALT 24 U/L (13-61) 08/28/18 06:30 Alkaline Phosphatase 77 U/L (45-117) 08/28/18 06:30 Creatine Kinase 402 IU/L (26-308) H 08/19/18 05:15 Creatine Kinase Index 2.8 % (0.0-5.0) 08/19/18 05:15 CK-MB (CK-2) 11.6 ng/mL (0.5-3.6) H 08/19/18 05:15 Troponin I 19.10 ng/ml (0.00-0.05) H* 08/19/18 05:15 B-Natriuretic Peptide 88861.6 pg/ml (5-125) H 08/20/18 05:30 Total Protein 6.8 g/dl (6.4-8.2) 08/28/18 06:30 Albumin 2.1 g/dl (3.4-5.0) L 08/28/18 06:30 Current Medications Generic Name Dose Route Start Last Admin Trade Name Freq PRN Reason Stop Dose Admin Acetaminophen 650 mg 08/24/18 20:52 Tylenol - PO Q4H PRN FEVER Aspirin 81 mg 08/25/18 10:00 08/28/18 10:11 Asa - PO 81 mg DAILY [facility] Administration Atorvastatin Calcium 80 mg 08/24/18 22:00 08/28/18 00:14 Lipitor - PO 80 mg HS [facility] Administration Calcium Acetate 1,334 mg 08/24/18 17:30 08/28/18 08:58 Phoslo - PO 1,334 mg TIDCM [facility] Administration Carvedilol 25 mg 08/24/18 22:00 08/28/18 10:11 Coreg - PO 25 mg BID [facility] Administration Clopidogrel Bisulfate 75 mg 08/25/18 10:00 08/28/18 10:11 Plavix - PO 75 mg DAILY [facility] Administration Fluticasone Propionate 1 spray 08/24/18 22:00 08/28/18 00:19 Flonase - NS Not Given BID [facility] Heparin Sodium (Porcine) 5,000 unit 08/24/18 22:00 08/28/18 06:43 Heparin - SQ 5,000 unit TID [facility] Administration Ceftriaxone Sodium 2 gm/ 100 mls @ 200 mls/hr 08/25/18 10:00 08/28/18 10:10 Dextrose IVPB 200 mls/hr DAILY [facility] Administration Protocol Sodium Chloride 1,000 mls @ 100 mls/hr 08/26/18 09:45 08/28/18 10:59 Normal Saline - IV Not Given ASDIR [facility] Sodium Chloride 250 mls @ 3,000 mls/hr 08/28/18 11:11 Normal Saline - IV 08/29/18 11:11 PRN PRN Hypotension during Dialysis Insulin Aspart 1 vial 08/24/18 11:52 08/28/18 06:43 Novolog Vial Sliding Scale - SQ 14 units TIDAC [facility] Administration Protocol Insulin Aspart 1 vial 08/24/18 22:00 08/28/18 00:11 Novolog Vial Sliding Scale - SQ 6 units HS [facility] Administration Protocol Insulin Detemir 40 units 08/27/18 22:00 08/28/18 00:11 Levemir Vial SQ 40 units HS [facility] Administration Lactobacillus Acidophilus 1 tab 08/25/18 10:00 08/28/18 10:11 Bacid - PO 1 tab DAILY [facility] Administration Mupirocin 1 applic 08/24/18 22:00 08/28/18 00:19 Bactroban 2% Cream - TP Not Given BID [facility] Ntvwx-2-Sqzn Ethyl Esters 2 gm 08/24/18 22:00 08/28/18 10:11 Lovaza - PO 2 gm BID [facility] Administration Ranitidine HCl 150 mg 08/24/18 22:00 08/28/18 10:11 Zantac - PO 150 mg BID [facility] Administration Ranolazine 500 mg 08/24/18 22:00 08/28/18 10:11 Ranexa - PO 500 mg BID [facility] Administration Sodium Chloride 2 spray 08/24/18 20:52 [place] Nasal [place] - NS TID PRN NASAL CONGESTION AP: Left 2nd toe cellulitis: improving Osteomyelitis: Bone scan suspicious for osteo left 2nd toe T2DM On Insulin pump at home HECTOR on CKD HLD CAD/Elevated Troponins: Probably secondary to demand ischemia CHF Going for HD today BGM Q ACHS and 3 AM Off Insulin pump Increase Levemir 46 units daily at HS Increase Novolog SS coverage IV abx vs Amputation of left 2nd toe Will f/u
--- NOTE | 2018-08-28 16:27 | PN ---
Progress Note, Physician Chief Complaint: Mr Long says he is doing much better today. Has minimal tremors. No cp, sob , n/v. - Current Medication List Current Medications: Active Medications Acetaminophen (Tylenol -) 650 mg PO Q4H PRN PRN Reason: FEVER Aspirin (Asa -) 81 mg PO DAILY [facility] Last Admin: 08/28/18 10:11 Dose: 81 mg Atorvastatin Calcium (Lipitor -) 80 mg PO HS [facility] Last Admin: 08/28/18 00:14 Dose: 80 mg Calcium Acetate (Phoslo -) 1,334 mg PO TIDCM [facility] Last Admin: 08/28/18 08:58 Dose: 1,334 mg Carvedilol (Coreg -) 25 mg PO BID [facility] Last Admin: 08/28/18 10:11 Dose: 25 mg Clopidogrel Bisulfate (Plavix -) 75 mg PO DAILY [facility] Last Admin: 08/28/18 10:11 Dose: 75 mg Fluticasone Propionate (Flonase -) 1 spray NS BID [facility] Last Admin: 08/28/18 00:19 Dose: Not Given Heparin Sodium (Porcine) (Heparin -) 5,000 unit SQ TID [facility] Last Admin: 08/28/18 06:43 Dose: 5,000 unit Ceftriaxone Sodium 2 gm/ (Dextrose) 100 mls @ 200 mls/hr IVPB DAILY [facility]; Protocol Last Admin: 08/28/18 10:10 Dose: 200 mls/hr Sodium Chloride (Normal Saline -) 1,000 mls @ 100 mls/hr IV ASDIR [facility] Last Admin: 08/28/18 10:59 Dose: Not Given Sodium Chloride (Normal Saline -) 250 mls @ 3,000 mls/hr IV PRN PRN PRN Reason: Hypotension during Dialysis Stop: 08/29/18 11:11 Insulin Aspart (Novolog Vial Sliding Scale -) 1 vial SQ HS [facility]; Protocol Last Admin: 08/28/18 00:11 Dose: 6 units Insulin Aspart (Novolog Vial Sliding Scale -) 1 vial SQ TIDAC [facility]; Protocol Insulin Detemir (Levemir Vial) 46 units SQ HS [facility] Lactobacillus Acidophilus (Bacid -) 1 tab PO DAILY [facility] Last Admin: 08/28/18 10:11 Dose: 1 tab Mupirocin (Bactroban 2% Cream -) 1 applic TP BID [facility] Last Admin: 08/28/18 00:19 Dose: Not Given Nyrri-7-Bpof Ethyl Esters (Lovaza -) 2 gm PO BID [facility] Last Admin: 08/28/18 10:11 Dose: 2 gm Ranitidine HCl (Zantac -) 150 mg PO BID [facility] Last Admin: 08/28/18 10:11 Dose: 150 mg Ranolazine (Ranexa -) 500 mg PO BID [facility] Last Admin: 08/28/18 10:11 Dose: 500 mg Sodium Chloride ([place] Nasal [place] -) 2 spray NS TID PRN PRN Reason: NASAL CONGESTION Last Admin: 08/28/18 12:04 Dose: 2 spray - Objective Vital Signs: Vital Signs Temperature 36.8 C 08/28/18 12:10 Pulse Rate 79 08/28/18 15:44 Respiratory Rate 18 08/28/18 15:44 Blood Pressure 161/92 08/28/18 15:44 O2 Sat by Pulse Oximetry (%) 97 08/27/18 20:56 Constitutional: Yes: No Distress, Calm, Obese Cardiovascular: Yes: Regular Rate and Rhythm. No: Gallop, Murmur, Rub Respiratory: Yes: Regular, CTA Bilaterally. No: Rales, Rhonchi, Wheezes Gastrointestinal: Yes: Normal Bowel Sounds, Soft. No: Distention, Tenderness Extremities: Yes: WNL Edema: No Labs: CBC, BMP 08/28/18 06:30 08/28/18 06:30 INR, PTT INR 1.23 (0.83-1.09) H 08/28/18 06:30 Problem List - Problems (1) Septic shock Code(s): A41.9 - SEPSIS, UNSPECIFIED ORGANISM; R65.21 - SEVERE SEPSIS WITH SEPTIC SHOCK (2) Cellulitis Code(s): L03.90 - CELLULITIS, UNSPECIFIED Qualifiers: Site of cellulitis: extremity Site of cellulitis of extremity: lower extremity Laterality: left Qualified Code(s): L03.116 - Cellulitis of left lower limb (3) NSTEMI (non-ST elevated myocardial infarction) Code(s): I21.4 - NON-ST ELEVATION (NSTEMI) MYOCARDIAL INFARCTION (4) CKD stage 4 due to type 2 diabetes mellitus Code(s): E11.22 - TYPE 2 DIABETES MELLITUS W DIABETIC CHRONIC KIDNEY DISEASE; N18.4 - CHRONIC KIDNEY DISEASE, STAGE 4 (SEVERE) (5) Diabetes mellitus Code(s): E11.9 - TYPE 2 DIABETES MELLITUS WITHOUT COMPLICATIONS Qualifiers: Diabetes mellitus type: type 2 Diabetes mellitus complication status: without complication (6) HLD (hyperlipidemia) Code(s): E78.5 - HYPERLIPIDEMIA, UNSPECIFIED Qualifiers: Hyperlipidemia type: pure hypercholesterolemia Qualified Code(s): E78.00 - Pure hypercholesterolemia, unspecified (7) HTN (hypertension) Code(s): I10 - ESSENTIAL (PRIMARY) HYPERTENSION Qualifiers: Hypertension type: essential hypertension Qualified Code(s): I10 - Essential (primary) hypertension (8) ICD (implantable cardioverter-defibrillator) in place Code(s): Z95.810 - PRESENCE OF AUTOMATIC (IMPLANTABLE) CARDIAC DEFIBRILLATOR (9) Systolic heart failure Code(s): I50.20 - UNSPECIFIED SYSTOLIC (CONGESTIVE) HEART FAILURE Qualifiers: Heart failure chronicity: acute on chronic Qualified Code(s): I50.23 - Acute on chronic systolic (congestive) heart failure Assessment/Plan 1. HECTOR on CKD -case d/w Dr Pendleton -will receive another round of HD today -much improved -will continue to evaluate to see if needs terminal operator HD 2. L foot osteomyelitis -seen by podiatry and ID -continue IV rocephin 3. CHF -exacerbation this hospital stay -diuresed -controlled 4. Diabetes -continue current management 5. HTN -now hypertensive -restart amlodipine 5mg daily -continue coreg 6. HLD -continue lipitor 7. NSTEMI/CAD -cardiology following -continue medical management 8. Morbid obesity -will need outpatient weight loss plan 9. Toxic encephalopathy with tremors -resolving -secondary to uremia
[2018-08-28] MEDS ORDERED: PT OWN MED DRAWER 7, Y5N ONE (17:40)
[2018-08-28] MEDS: INSULIN (LEVEMIR) 100 UNITS/ML UNITS SQ SCH (22:01)
[2018-08-28] MEDS: guaiFENesin/CODEINE 5 ML UNIT-DOSE CUPS PO PRN (23:37)
[2018-08-28] MEDS: ACETAMINOPHEN 325 MG TABLET (FP) PO PRN (23:38)
[2018-08-29] MEDS: INSULIN SLIDING SCALE (NOVOLOG) 1 VIAL SQ SCH ×4 (06:51→21:52)
[2018-08-29] MEDS: HEPARIN NA (PORCINE) 5,000 UNITS/ML 1ML VIAL SQ SCH ×3 (06:54→21:51)
[2018-08-29 07:44] LABS: BASO % 0.6 % (0-2.0); EOS % 1.2 % (0-4.5); HEMATOCRIT 27.6 % (35.4-49); HEMOGLOBIN 9.1 GM/dL (11.7-16.9); MCH 28.7 pg (25.7-33.7); MCHC 33.1 g/dl (32.0-35.9); MEAN CELL VOLUME 86.9 fl (80-96); MEAN PLT VOLUME 6.9 fl (7.5-11.1); MONO % 10.1 % (3.8-10.2); NEUT % 77.1 % (42.8-82.8); PLATELET COUNT 337 K/MM3 (134-434); RBC 3.18 M/mm3 (4.00-5.60); WHITE BLOOD COUNT 8.1 K/mm3 (4.0-10.0)
[2018-08-29 08:06] LABS: SERUM IRON SATURATION 87 % (15-55); TOTAL IRON BINDING CAPACITY 209 ug/dL (250-450); UIBC 28 ug/dL (111-343)
[2018-08-29 08:30] LABS: ALK PHOS 76 U/L (45-117); ANION GAP 8 MMOL/L (8-16); BILIRUBIN,TOTAL 0.8 mg/dL (0.2-1); BLOOD UREA NITROGEN 52 mg/dL (7-18); CALCIUM 8.4 mg/dL (8.5-10.1); CHLORIDE 102 mmol/L (98-107); CO2 31 mmol/L (21-32); CREATININE 3.4 mg/dL (0.55-1.3); GLUCOSE,RANDOM 130 mg/dL (74-106); PHOSPHOROUS 3.1 mg/dL (2.5-4.9); POTASSIUM 3.9 mmol/L (3.5-5.1); SGOT/AST 20 U/L (15-37); SGPT/ALT 23 U/L (13-61); SODIUM 140 mmol/L (136-145); TOT PROT 6.7 g/dl (6.4-8.2)
[2018-08-29] MEDS ORDERED: DEXTROSE 5%-WATER 100 ML IVPB ONE (09:06)
[2018-08-29] MEDS ORDERED: PT OWN MED DRAWER 7, Y5N ONE (09:06)
--- NOTE | 2018-08-29 09:29 | PN ---
Progress Note (short form) - Note Progress Note: Renal follow up for HECTOR on CKD Pt seen and examined at the bedside feels much better no tremor today no N/V mental status is at baseline making urine via joiner s/p HD yesterday Vital Signs Temperature 98.6 F 08/29/18 06:00 Pulse Rate 68 08/29/18 06:00 Respiratory Rate 20 08/29/18 06:00 Blood Pressure 150/68 08/29/18 06:00 O2 Sat by Pulse Oximetry (%) 93 L 08/29/18 07:42 Intake & Output 08/26/18 08/27/18 08/28/18 08/29/18 23:59 23:59 23:59 23:59 Intake Total 1040 930 990 100 Output Total 9179 661 1140 Balance -60 630 -60 100 Weight 126.915 kg 128.094 kg NAD awake and alert RRR, no M/R DEc BS, no rales trace LE edema CBC, BMP 08/29/18 06:30 08/29/18 06:30 Laboratory Tests 08/29/18 06:30 Calcium 8.4 L Phosphorus 3.1 Current Medications Acetaminophen (Tylenol -) 650 mg PO Q4H PRN PRN Reason: FEVER Last Admin: 08/28/18 23:38 Dose: 650 mg Amlodipine Besylate (Norvasc -) 5 mg PO DAILY [facility] Aspirin (Asa -) 81 mg PO DAILY [facility] Last Admin: 08/28/18 10:11 Dose: 81 mg Atorvastatin Calcium (Lipitor -) 80 mg PO HS [facility] Last Admin: 08/28/18 22:00 Dose: 80 mg Calcium Acetate (Phoslo -) 1,334 mg PO TIDCM [facility] Last Admin: 08/28/18 17:55 Dose: 1,334 mg Carvedilol (Coreg -) 25 mg PO BID [facility] Last Admin: 08/28/18 22:00 Dose: 25 mg Clopidogrel Bisulfate (Plavix -) 75 mg PO DAILY [facility] Last Admin: 08/28/18 10:11 Dose: 75 mg Fluticasone Propionate (Flonase -) 1 spray NS BID [facility] Last Admin: 08/28/18 22:01 Dose: 1 spray Guaifenesin/Codeine Phosphate (Robitussin Ac -) 5 ml PO Q8H PRN PRN Reason: COUGH Last Admin: 08/28/18 23:37 Dose: 5 ml Heparin Sodium (Porcine) (Heparin -) 5,000 unit SQ TID [facility] Last Admin: 08/29/18 06:54 Dose: 5,000 unit Ceftriaxone Sodium 2 gm/ (Dextrose) 100 mls @ 200 mls/hr IVPB DAILY [facility]; Protocol Last Admin: 08/28/18 10:10 Dose: 200 mls/hr Sodium Chloride (Normal Saline -) 1,000 mls @ 100 mls/hr IV [facility]IR [facility] Last Admin: 08/28/18 10:59 Dose: Not Given Sodium Chloride (Normal Saline -) 250 mls @ 3,000 mls/hr IV PRN PRN PRN Reason: Hypotension during Dialysis Stop: 08/29/18 11:11 Insulin Aspart (Novolog Vial Sliding Scale -) 1 vial SQ HS [facility]; Protocol Last Admin: 08/28/18 22:01 Dose: 6 units Insulin Aspart (Novolog Vial Sliding Scale -) 1 vial SQ TIDAC [facility]; Protocol Last Admin: 08/29/18 06:51 Dose: Not Given Insulin Detemir (Levemir Vial) 46 units SQ HS [facility] Last Admin: 08/28/18 22:01 Dose: 46 units Lactobacillus Acidophilus (Bacid -) 1 tab PO DAILY [facility] Last Admin: 08/28/18 10:11 Dose: 1 tab Mupirocin (Bactroban 2% Cream -) 1 applic TP BID [facility] Last Admin: 08/28/18 22:00 Dose: 1 applic Gxxmo-6-Fyzv Ethyl Esters (Lovaza -) 2 gm PO BID [facility] Last Admin: 08/28/18 22:00 Dose: 2 gm Ranitidine HCl (Zantac -) 150 mg PO BID [facility] Last Admin: 08/28/18 22:00 Dose: 150 mg Ranolazine (Ranexa -) 500 mg PO BID [facility] Last Admin: 08/28/18 22:00 Dose: 500 mg Sodium Chloride ([place] Nasal [place] -) 2 spray NS TID PRN PRN Reason: NASAL CONGESTION Last Admin: 08/28/18 12:04 Dose: 2 spray 57 year old gentleman with hx of 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 #HECTOR on CKD now likely due to volume depletion in setting of diuretics + hemodyanic changes requiring urgent HD for uremic symptoms #Sepsis syndrome from soft tissue infection + osteomylitis #NSTEMI #Acute on chronic anemia #Hx of Hypertension #Lactic acidosis now resolved #Hypocalcemia/Hyperphosphtatemia #Volume overload requiring IV diuresis now resolved s/p 3 sessions of dialysis femoral dialysis catheter removed today at the bedside. Pressure was held over the site for 5 minutes. No bleeding noted. No erythema or signs of infection noted at catheter site will observe renal function off dialysis for 48-72 hours can give PRN IV lasix as needed for sob as chest x-ray shows congestion would avoid ELROY/ARB's discontinue any IVF Continue Calcium acetate and trend serum Phos levels H/H stable will give SC MARCI 3x weekly Jose Manuel Pendleton DO
[2018-08-29 10:13] LABS: ACANTHOCYTES 0; ANISOCYTOSIS 0; HELMET CELLS 0; HOWELL-JOLLY BODIES 0; MACROCYTOSIS 0; OVALOCYTE 0; PLATELET ESTIMATE NORMAL; ROULEAU 0; SICKELED CELLS 0; TARGET CELLS 0; TEAR DROP CELLS 0; TOXIC GRANULATION 0
[2018-08-29] MEDS: CEFTRIAXONE 2 GM in DEXTROSE 5%-WATER 100 ML IVPB SCH (10:34)
[2018-08-29] MEDS: OMEGA-3 ACID ETHYL ESTERS (FATTY-ACIDS) 1 GM CAPSULE (FP) PO SCH ×2 (10:34→21:51)
[2018-08-29] MEDS: RANOLAZINE E.R. 500 MG TABLET (FP) PO SCH ×2 (10:34→21:50)
[2018-08-29] MEDS: RANITIDINE HCL 150 MG TABLET (FP) PO SCH ×2 (10:35→21:51)
[2018-08-29] MEDS: CLOPIDOGREL BISULFATE 75 MG TABLET (FP) PO SCH (10:35)
[2018-08-29] MEDS: LACTOBACILLUS ACIDOPHILUS 1 TABLET PO SCH (10:35)
[2018-08-29] MEDS: CALCIUM ACETATE 667 MG CAPSULE (FP) PO SCH ×3 (10:35→18:17)
[2018-08-29] MEDS: CARVEDILOL 25 MG TABLET (FP) PO SCH ×2 (10:35→21:51)
[2018-08-29] MEDS: amLODIPine BESYLATE 5 MG TABLET (FP) PO SCH (10:35)
[2018-08-29] MEDS: ASPIRIN 81 MG CHEWABLE TABLETS PO SCH (10:35)
[2018-08-29] MEDS: MUPIROCIN CA 2% TOPICAL CREAM 15 GM TUBE TP SCH ×2 (10:40→21:51)
[2018-08-29] MEDS: FLUTICASONE PROP 0.05% 16 GM NASAL SPRAY NS SCH ×2 (10:41→21:51)
--- NOTE | 2018-08-29 10:50 | PN ---
Progress Note, Physician History of Present Illness: PULMONARY ALERT,FEELING BETTER,-RESP DISTRESS, ASTERIXIS IMPROVING - Current Medication List Current Medications: Active Medications Acetaminophen (Tylenol -) 650 mg PO Q4H PRN PRN Reason: FEVER Last Admin: 08/28/18 23:38 Dose: 650 mg Amlodipine Besylate (Norvasc -) 5 mg PO DAILY [facility] Last Admin: 08/29/18 10:35 Dose: 5 mg Aspirin (Asa -) 81 mg PO DAILY [facility] Last Admin: 08/29/18 10:35 Dose: 81 mg Atorvastatin Calcium (Lipitor -) 80 mg PO HS [facility] Last Admin: 08/28/18 22:00 Dose: 80 mg Calcium Acetate (Phoslo -) 1,334 mg PO TIDCM [facility] Last Admin: 08/29/18 10:35 Dose: 1,334 mg Carvedilol (Coreg -) 25 mg PO BID [facility] Last Admin: 08/29/18 10:35 Dose: 25 mg Clopidogrel Bisulfate (Plavix -) 75 mg PO DAILY [facility] Last Admin: 08/29/18 10:35 Dose: 75 mg Fluticasone Propionate (Flonase -) 1 spray NS BID [facility] Last Admin: 08/29/18 10:41 Dose: Not Given Guaifenesin/Codeine Phosphate (Robitussin Ac -) 5 ml PO Q8H PRN PRN Reason: COUGH Last Admin: 08/28/18 23:37 Dose: 5 ml Heparin Sodium (Porcine) (Heparin -) 5,000 unit SQ TID [facility] Last Admin: 08/29/18 06:54 Dose: 5,000 unit Ceftriaxone Sodium 2 gm/ (Dextrose) 100 mls @ 200 mls/hr IVPB DAILY [facility]; Protocol Last Admin: 08/29/18 10:34 Dose: 200 mls/hr Insulin Aspart (Novolog Vial Sliding Scale -) 1 vial SQ [facility]; Protocol Last Admin: 08/28/18 22:01 Dose: 6 units Insulin Aspart (Novolog Vial Sliding Scale -) 1 vial SQ TIDAC [facility]; Protocol Last Admin: 08/29/18 06:51 Dose: Not Given Insulin Detemir (Levemir Vial) 46 units SQ [facility] Last Admin: 08/28/18 22:01 Dose: 46 units Lactobacillus Acidophilus (Bacid -) 1 tab PO DAILY [facility] Last Admin: 08/29/18 10:35 Dose: 1 tab Mupirocin (Bactroban 2% Cream -) 1 applic TP BID [facility] Last Admin: 08/29/18 10:40 Dose: 1 applic Ebzpv-0-Clat Ethyl Esters (Lovaza -) 2 gm PO BID [facility] Last Admin: 08/29/18 10:34 Dose: 2 gm Ranitidine HCl (Zantac -) 150 mg PO BID [facility] Last Admin: 08/29/18 10:35 Dose: 150 mg Ranolazine (Ranexa -) 500 mg PO BID [facility] Last Admin: 08/29/18 10:34 Dose: 500 mg Sodium Chloride ([place] -) 2 spray NS TID PRN PRN Reason: NASAL CONGESTION Last Admin: 08/28/18 12:04 Dose: 2 spray - Objective Vital Signs: Vital Signs Temperature 98.6 F 08/29/18 06:00 Pulse Rate 68 08/29/18 06:00 Respiratory Rate 20 08/29/18 06:00 Blood Pressure 150/68 08/29/18 06:00 O2 Sat by Pulse Oximetry (%) 93 L 08/29/18 07:42 Constitutional: Yes: Calm, Obese Eyes: Yes: WNL HENT: Yes: WNL Neck: Yes: WNL Cardiovascular: Yes: Regular Rate and Rhythm, S1, S2 Respiratory: Yes: Diminished Gastrointestinal: Yes: Normal Bowel Sounds, Soft Extremities: Yes: WNL Edema: Yes Labs: CBC, BMP 08/29/18 06:30 08/29/18 06:30 INR, PTT INR 1.23 (0.83-1.09) H 08/28/18 06:30 Problem List - Problems (1) NSTEMI (non-ST elevated myocardial infarction) Code(s): I21.4 - NON-ST ELEVATION (NSTEMI) MYOCARDIAL INFARCTION (2) Sepsis Code(s): A41.9 - SEPSIS, UNSPECIFIED ORGANISM Qualifiers: Sepsis type: sepsis due to unspecified organism Qualified Code(s): A41.9 - Sepsis, unspecified organism (3) Troponin I above reference range Code(s): R74.8 - ABNORMAL LEVELS OF OTHER SERUM ENZYMES (4) Acute on chronic kidney failure Code(s): N17.9 - ACUTE KIDNEY FAILURE, UNSPECIFIED; N18.9 - CHRONIC KIDNEY DISEASE, UNSPECIFIED Qualifiers: Acute renal failure type: unspecified Chronic kidney disease stage: unspecified stage Qualified Code(s): N17.9 - Acute kidney failure, unspecified ; N18.9 - Chronic kidney disease, unspecified (5) Acute on chronic systolic (congestive) heart failure Code(s): I50.23 - ACUTE ON CHRONIC SYSTOLIC (CONGESTIVE) HEART FAILURE (6) Anemia Code(s): D64.9 - ANEMIA, UNSPECIFIED Qualifiers: Anemia type: unspecified type Qualified Code(s): D64.9 - Anemia, unspecified (7) Aortic valve stenosis Code(s): I35.0 - NONRHEUMATIC AORTIC (VALVE) STENOSIS Qualifiers: Cardiac valve disease etiology: nonrheumatic Qualified Code(s): I35.0 - Nonrheumatic aortic (valve) stenosis (8) CAD (coronary artery disease) Code(s): I25.10 - ATHSCL HEART DISEASE OF [place] CORONARY ARTERY W/O ANG PCTRS Qualifiers: Coronary Disease-Associated Artery/Lesion type: [place] artery [place] vs. transplanted heart: [place] heart Associated angina: without angina Qualified Code(s): I25.10 - Atherosclerotic heart disease of [place] coronary artery without angina pectoris (9) CKD stage 4 due to type 2 diabetes mellitus Code(s): E11.22 - TYPE 2 DIABETES MELLITUS W DIABETIC CHRONIC KIDNEY DISEASE; N18.4 - CHRONIC KIDNEY DISEASE, STAGE 4 (SEVERE) (10) History of coronary artery stent placement Code(s): Z95.5 - PRESENCE OF CORONARY ANGIOPLASTY IMPLANT AND GRAFT (11) Hx of CABG Code(s): Z95.1 - PRESENCE OF AORTOCORONARY BYPASS GRAFT (12) ICD (implantable cardioverter-defibrillator) in place Code(s): Z95.810 - PRESENCE OF AUTOMATIC (IMPLANTABLE) CARDIAC DEFIBRILLATOR Assessment/Plan ASSESSMENT AND PLAN: Acute on Chronic Systolic Heart Failure Acute NSTEMI CAD s/p CABG Acute on Chronic Renal Failure HTN DM Cellulitis Anemia - antibiotics - HD as per renal - daily weights - ASA, plavix - beta sandee, statin - O2 to keep SpO2 >90% - monitor lytes,renal function,h+h DR PRIETO
[2018-08-29] MEDS: guaiFENesin/CODEINE 5 ML UNIT-DOSE CUPS PO PRN ×2 (11:11→21:50)
[2018-08-29] MEDS: ACETAMINOPHEN 325 MG TABLET (FP) PO PRN (11:22)
--- NOTE | 2018-08-29 11:36 | PN ---
Progress Note (short form) - Note Progress Note: Feels better today Decrease tremors of hands Blood sugar improving Vital Signs Period Temp Pulse Resp BP Sys/Gallo Pulse Ox Last 24 Hr 97.7 F-100.2 F 62-88 18-20 125-176/68-97 93-97 PE: AOx3 Neck: Supple, HEENT: EOMI Lungs: cTA CVS: S1S2 Abd: Benign EXt: slight erythema left 2nd toe + Edema Neuro: No focal deficit CMP Sodium 140 mmol/L (136-145) 08/29/18 06:30 Potassium 3.9 mmol/L (3.5-5.1) 08/29/18 06:30 Chloride 102 mmol/L (98-107) 08/29/18 06:30 Carbon Dioxide 31 mmol/L (21-32) 08/29/18 06:30 Anion Gap 8 MMOL/L (8-16) 08/29/18 06:30 BUN 52 mg/dL (7-18) H 08/29/18 06:30 Creatinine 3.4 mg/dL (0.55-1.3) H 08/29/18 06:30 Creat Clearance w eGFR 18.83 (>60) 08/29/18 06:30 POC Glucometer 140 UNITS (80-120) 08/29/18 06:08 Random Glucose 130 mg/dL (74-106) H 08/29/18 06:30 Hemoglobin A1c % 6.0 % (4.2-6.3) 08/19/18 05:15 Lactic Acid 1.1 mmol/L (0.4-2.0) 08/17/18 20:20 Calcium 8.4 mg/dL (8.5-10.1) L 08/29/18 06:30 Phosphorus 3.1 mg/dL (2.5-4.9) 08/29/18 06:30 Magnesium 2.3 mg/dL (1.8-2.4) 08/28/18 06:30 Iron 181 ug/dL (38-169) H 08/28/18 06:30 TIBC 209 ug/dL (250-450) L 08/28/18 06:30 Iron Saturation 87 % (15-55) H 08/28/18 06:30 Ferritin 199.4 ng/ml (8-388) 08/28/18 06:30 Total Bilirubin 0.8 mg/dL (0.2-1) 08/29/18 06:30 AST 20 U/L (15-37) 08/29/18 06:30 ALT 23 U/L (13-61) 08/29/18 06:30 Alkaline Phosphatase 76 U/L (45-117) 08/29/18 06:30 Creatine Kinase 402 IU/L (26-308) H 08/19/18 05:15 Creatine Kinase Index 2.8 % (0.0-5.0) 08/19/18 05:15 CK-MB (CK-2) 11.6 ng/mL (0.5-3.6) H 08/19/18 05:15 Troponin I 19.10 ng/ml (0.00-0.05) H* 08/19/18 05:15 B-Natriuretic Peptide 93046.6 pg/ml (5-125) H 08/20/18 05:30 Total Protein 6.7 g/dl (6.4-8.2) 08/29/18 06:30 Albumin 2.0 g/dl (3.4-5.0) L 08/29/18 06:30 Current Medications Generic Name Dose Route Start Last Admin Trade Name Freq PRN Reason Stop Dose Admin Acetaminophen 650 mg 08/24/18 20:52 08/29/18 11:22 Tylenol - PO 650 mg Q4H PRN Administration FEVER Amlodipine Besylate 5 mg 08/29/18 10:00 08/29/18 10:35 Norvasc - PO 5 mg DAILY [facility] Administration Aspirin 81 mg 08/25/18 10:00 08/29/18 10:35 Asa - PO 81 mg DAILY [facility] Administration Atorvastatin Calcium 80 mg 08/24/18 22:00 08/28/18 22:00 Lipitor - PO 80 mg HS [facility] Administration Calcium Acetate 1,334 mg 08/24/18 17:30 08/29/18 10:35 Phoslo - PO 1,334 mg TIDCM [facility] Administration Carvedilol 25 mg 08/24/18 22:00 08/29/18 10:35 Coreg - PO 25 mg BID [facility] Administration Clopidogrel Bisulfate 75 mg 08/25/18 10:00 08/29/18 10:35 Plavix - PO 75 mg DAILY [facility] Administration Fluticasone Propionate 1 spray 08/24/18 22:00 08/29/18 10:41 Flonase - NS Not Given BID [facility] Guaifenesin/Codeine Phosphate 5 ml 08/28/18 19:00 08/29/18 11:11 Robitussin Ac - PO 5 ml Q8H PRN Administration COUGH Heparin Sodium (Porcine) 5,000 unit 08/24/18 22:00 08/29/18 06:54 Heparin - SQ 5,000 unit TID [facility] Administration Ceftriaxone Sodium 2 gm/ 100 mls @ 200 mls/hr 08/25/18 10:00 08/29/18 10:34 Dextrose IVPB 200 mls/hr DAILY [facility] Administration Protocol Insulin Aspart 1 vial 08/24/18 22:00 08/28/18 22:01 Novolog Vial Sliding Scale - SQ 6 units HS [facility] Administration Protocol Insulin Aspart 1 vial 08/28/18 11:46 08/29/18 06:51 Novolog Vial Sliding Scale - SQ Not Given TIDAC [facility] Protocol Insulin Detemir 46 units 08/28/18 22:00 08/28/18 22:01 Levemir Vial SQ 46 units HS [facility] Administration Lactobacillus Acidophilus 1 tab 08/25/18 10:00 08/29/18 10:35 Bacid - PO 1 tab DAILY [facility] Administration Mupirocin 1 applic 08/24/18 22:00 08/29/18 10:40 Bactroban 2% Cream - TP 1 applic BID [facility] Administration [id number]-9-Gcve Ethyl Esters 2 gm 08/24/18 22:00 08/29/18 10:34 Lovaza - PO 2 gm BID [facility] Administration Ranitidine HCl 150 mg 08/24/18 22:00 08/29/18 10:35 Zantac - PO 150 mg BID [facility] Administration Ranolazine 500 mg 08/24/18 22:00 08/29/18 10:34 Ranexa - PO 500 mg BID [facility] Administration Sodium Chloride 2 spray 08/24/18 20:52 08/28/18 12:04 [place] - NS 2 spray TID PRN Administration NASAL CONGESTION AP: Left 2nd toe cellulitis: improving Osteomyelitis: Bone scan suspicious for osteo left 2nd toe T2DM On Insulin pump at home HECTOR on CKD HLD CAD/Elevated Troponins: Probably secondary to demand ischemia CHF BGM Q ACHS Off Insulin pump Levemir 46 units daily at HS Novolog SS coverage Discussed need to give Novolog even when FS 100 to 150 which should be given only once food is in the room and pt is ready to eat. IV abx vs Amputation of left 2nd toe Will f/u
--- NOTE | 2018-08-29 12:03 | PN ---
Progress Note, Physician History of Present Illness: Denies orthopnea and dyspnea after diuresis which has been held due to acute on ckd requiring HD, femoral shiley dced. Asterixis and tremors improved post HD. - Current Medication List Current Medications: Active Medications Acetaminophen (Tylenol -) 650 mg PO Q4H PRN PRN Reason: FEVER Last Admin: 08/29/18 11:22 Dose: 650 mg Amlodipine Besylate (Norvasc -) 5 mg PO DAILY [facility] Last Admin: 08/29/18 10:35 Dose: 5 mg Aspirin (Asa -) 81 mg PO DAILY [facility] Last Admin: 08/29/18 10:35 Dose: 81 mg Atorvastatin Calcium (Lipitor -) 80 mg PO HS [facility] Last Admin: 08/28/18 22:00 Dose: 80 mg Calcium Acetate (Phoslo -) 1,334 mg PO TIDCM [facility] Last Admin: 08/29/18 10:35 Dose: 1,334 mg Carvedilol (Coreg -) 25 mg PO BID [facility] Last Admin: 08/29/18 10:35 Dose: 25 mg Clopidogrel Bisulfate (Plavix -) 75 mg PO DAILY [facility] Last Admin: 08/29/18 10:35 Dose: 75 mg Fluticasone Propionate (Flonase -) 1 spray NS BID [facility] Last Admin: 08/29/18 10:41 Dose: Not Given Guaifenesin/Codeine Phosphate (Robitussin Ac -) 5 ml PO Q8H PRN PRN Reason: COUGH Last Admin: 08/29/18 11:11 Dose: 5 ml Heparin Sodium (Porcine) (Heparin -) 5,000 unit SQ TID [facility] Last Admin: 08/29/18 06:54 Dose: 5,000 unit Ceftriaxone Sodium 2 gm/ (Dextrose) 100 mls @ 200 mls/hr IVPB DAILY [facility]; Protocol Last Admin: 08/29/18 10:34 Dose: 200 mls/hr Insulin Aspart (Novolog Vial Sliding Scale -) 1 vial SQ HS [facility]; Protocol Last Admin: 08/28/18 22:01 Dose: 6 units Insulin Aspart (Novolog Vial Sliding Scale -) 1 vial SQ TIDAC [facility]; Protocol Last Admin: 08/29/18 06:51 Dose: Not Given Insulin Detemir (Levemir Vial) 46 units SQ [facility] Last Admin: 08/28/18 22:01 Dose: 46 units Lactobacillus Acidophilus (Bacid -) 1 tab PO DAILY [facility] Last Admin: 08/29/18 10:35 Dose: 1 tab Mupirocin (Bactroban 2% Cream -) 1 applic TP BID [facility] Last Admin: 08/29/18 10:40 Dose: 1 applic Xxldl-0-Cwtg Ethyl Esters (Lovaza -) 2 gm PO BID [facility] Last Admin: 08/29/18 10:34 Dose: 2 gm Ranitidine HCl (Zantac -) 150 mg PO BID [facility] Last Admin: 08/29/18 10:35 Dose: 150 mg Ranolazine (Ranexa -) 500 mg PO BID [facility] Last Admin: 08/29/18 10:34 Dose: 500 mg Sodium Chloride ([place] -) 2 spray NS TID PRN PRN Reason: NASAL CONGESTION Last Admin: 08/28/18 12:04 Dose: 2 spray - Objective Vital Signs: Vital Signs Temperature 98.6 F 08/29/18 06:00 Pulse Rate 68 08/29/18 06:00 Respiratory Rate 20 08/29/18 06:00 Blood Pressure 150/68 08/29/18 06:00 O2 Sat by Pulse Oximetry (%) 93 L 08/29/18 07:42 Constitutional: Yes: No Distress, Calm Neck: Yes: Supple Cardiovascular: Yes: Regular Rate and Rhythm Respiratory: Yes: Regular, Diminished, On Nasal O2 Gastrointestinal: Yes: Normal Bowel Sounds, Soft, Abdomen, Obese Edema: Yes Edema: LLE: Trace, RLE: Trace Neurological: Yes: Asterixis Labs: CBC, BMP 08/29/18 06:30 INR, PTT INR 1.23 (0.83-1.09) H 08/28/18 06:30 - ....Imaging Chest X-ray: Report Reviewed (Increased congestion) Problem List - Problems (1) NSTEMI (non-ST elevated myocardial infarction) Code(s): I21.4 - NON-ST ELEVATION (NSTEMI) MYOCARDIAL INFARCTION (2) Sepsis Code(s): A41.9 - SEPSIS, UNSPECIFIED ORGANISM Qualifiers: Sepsis type: sepsis due to unspecified organism Qualified Code(s): A41.9 - Sepsis, unspecified organism (3) Acute on chronic kidney failure Code(s): N17.9 - ACUTE KIDNEY FAILURE, UNSPECIFIED; N18.9 - CHRONIC KIDNEY DISEASE, UNSPECIFIED Qualifiers: Acute renal failure type: unspecified Chronic kidney disease stage: unspecified stage Qualified Code(s): N17.9 - Acute kidney failure, unspecified ; N18.9 - Chronic kidney disease, unspecified (4) Acute on chronic systolic (congestive) heart failure Code(s): I50.23 - ACUTE ON CHRONIC SYSTOLIC (CONGESTIVE) HEART FAILURE (5) Dyspnea due to congestive heart failure Code(s): I50.9 - HEART FAILURE, UNSPECIFIED (6) Elevated troponin Code(s): R79.89 - OTHER SPECIFIED ABNORMAL FINDINGS OF BLOOD CHEMISTRY (7) HLD (hyperlipidemia) Code(s): E78.5 - HYPERLIPIDEMIA, UNSPECIFIED Qualifiers: Hyperlipidemia type: pure hypercholesterolemia Qualified Code(s): E78.00 - Pure hypercholesterolemia, unspecified (8) HTN (hypertension) Code(s): I10 - ESSENTIAL (PRIMARY) HYPERTENSION Qualifiers: Hypertension type: essential hypertension Qualified Code(s): I10 - Essential (primary) hypertension (9) History of coronary artery stent placement Code(s): Z95.5 - PRESENCE OF CORONARY ANGIOPLASTY IMPLANT AND GRAFT (10) Hx of CABG Code(s): Z95.1 - PRESENCE OF AORTOCORONARY BYPASS GRAFT (11) ICD (implantable cardioverter-defibrillator) in place Code(s): Z95.810 - PRESENCE OF AUTOMATIC (IMPLANTABLE) CARDIAC DEFIBRILLATOR (12) Systolic heart failure Code(s): I50.20 - UNSPECIFIED SYSTOLIC (CONGESTIVE) HEART FAILURE Qualifiers: Heart failure chronicity: acute on chronic Qualified Code(s): I50.23 - Acute on chronic systolic (congestive) heart failure (13) Sleep apnea Code(s): G47.30 - SLEEP APNEA, UNSPECIFIED Qualifiers: Sleep apnea type: obstructive Qualified Code(s): G47.33 - Obstructive sleep apnea (adult) (pediatric) (14) Uremia Code(s): N19 - UNSPECIFIED KIDNEY FAILURE Assessment/Plan 08/18/2018 Echo: Poor windows 1. Acute on chronic class II-III NYHA classification LV systolic failure 2. CAD post UT/CABG, PCI/stent, demand ischemic injury history of an abnormal MPI study angina pectoris, plan for conservative medical management 3. Aortic stenosis, mild 4. HTN 5. IDDM 6. Hypercholesterolemia 7. Post prophylactic ICD implant, history of NSVT 8. Acute on CKD with hyperkalemia and uremia due to volume depletion in setting of diuretics + hemodyanic changes post HD via femoral shiley since d/charles 9. Anemia post transfusion 10. Gout 11. Obstructive sleep apnea 12. Left leg cellulitis PLAN: 1. Post HD per renal, resume diuretics with monitoring renal function and electrolytes 2. Continue Coreg 25 bid 3. Hold Entresto 26/26 bid pending renal function and hyperkalemia stabilization 4. Continue Ranexa 500 bid 5. Continue Norvasc 5 qd 6. Continue Lipitor 80 qhs and Lovaza 2 bid 7. Continue Plavix 75 qd and ASA 81 qd with caution in view of the above noted anemia, transfuse as needed to maintain Hg equal or > 8.0 8. Complete antibiotic course as per the primary team 9. As outlined in the prior note plan to pursue medical management and therapy optimization and deferring any invasive strategy in view of the above noted CKD with acute exacerbation 10. DVT prophylaxis 11. Eventual RUE AVF
[2018-08-29 12:06] LABS: HEMATOCRIT 25.2 % (35.4-49); HEMOGLOBIN 8.7 GM/dL (11.7-16.9); MCH 29.7 pg (25.7-33.7); MCHC 34.7 g/dl (32.0-35.9); MEAN CELL VOLUME 85.4 fl (80-96); PLATELET COUNT 357 K/MM3 (134-434); RBC 2.95 M/mm3 (4.00-5.60); RDW 16.8 % (11.9-15.9); WHITE BLOOD COUNT 8.7 K/mm3 (4.0-10.0)
--- NOTE | 2018-08-29 13:26 | PN ---
Progress Note, Physician Chief Complaint: Mr Long says he is doing well. Tremors has resulted. No cp, sob, n/v. - Current Medication List Current Medications: Active Medications Acetaminophen (Tylenol -) 650 mg PO Q4H PRN PRN Reason: FEVER Last Admin: 08/29/18 11:22 Dose: 650 mg Amlodipine Besylate (Norvasc -) 5 mg PO DAILY [facility] Last Admin: 08/29/18 10:35 Dose: 5 mg Aspirin (Asa -) 81 mg PO DAILY [facility] Last Admin: 08/29/18 10:35 Dose: 81 mg Atorvastatin Calcium (Lipitor -) 80 mg PO HS [facility] Last Admin: 08/28/18 22:00 Dose: 80 mg Calcium Acetate (Phoslo -) 1,334 mg PO TIDCM [facility] Last Admin: 08/29/18 10:35 Dose: 1,334 mg Carvedilol (Coreg -) 25 mg PO BID [facility] Last Admin: 08/29/18 10:35 Dose: 25 mg Clopidogrel Bisulfate (Plavix -) 75 mg PO DAILY [facility] Last Admin: 08/29/18 10:35 Dose: 75 mg Fluticasone Propionate (Flonase -) 1 spray NS BID [facility] Last Admin: 08/29/18 10:41 Dose: Not Given Guaifenesin/Codeine Phosphate (Robitussin Ac -) 5 ml PO Q8H PRN PRN Reason: COUGH Last Admin: 08/29/18 11:11 Dose: 5 ml Heparin Sodium (Porcine) (Heparin -) 5,000 unit SQ TID [facility] Last Admin: 08/29/18 06:54 Dose: 5,000 unit Ceftriaxone Sodium 2 gm/ (Dextrose) 100 mls @ 200 mls/hr IVPB DAILY [facility]; Protocol Last Admin: 08/29/18 10:34 Dose: 200 mls/hr Insulin Aspart (Novolog Vial Sliding Scale -) 1 vial SQ HS [facility]; Protocol Last Admin: 08/28/18 22:01 Dose: 6 units Insulin Aspart (Novolog Vial Sliding Scale -) 1 vial SQ TIDAC [facility]; Protocol Last Admin: 08/29/18 12:05 Dose: 18 unit Insulin Detemir (Levemir Vial) 46 units SQ HS [facility] Last Admin: 08/28/18 22:01 Dose: 46 units Lactobacillus Acidophilus (Bacid -) 1 tab PO DAILY [facility] Last Admin: 08/29/18 10:35 Dose: 1 tab Mupirocin (Bactroban 2% Cream -) 1 applic TP BID [facility] Last Admin: 08/29/18 10:40 Dose: 1 applic Nltpt-7-Wlpi Ethyl Esters (Lovaza -) 2 gm PO BID [facility] Last Admin: 08/29/18 10:34 Dose: 2 gm Ranitidine HCl (Zantac -) 150 mg PO BID [facility] Last Admin: 08/29/18 10:35 Dose: 150 mg Ranolazine (Ranexa -) 500 mg PO BID [facility] Last Admin: 08/29/18 10:34 Dose: 500 mg Sodium Chloride ([place] Nasal [place] -) 2 spray NS TID PRN PRN Reason: NASAL CONGESTION Last Admin: 08/28/18 12:04 Dose: 2 spray - Objective Vital Signs: Vital Signs Temperature 37.0 C 08/29/18 06:00 Pulse Rate 68 08/29/18 06:00 Respiratory Rate 20 08/29/18 06:00 Blood Pressure 150/68 08/29/18 06:00 O2 Sat by Pulse Oximetry (%) 95 08/29/18 12:13 Constitutional: Yes: No Distress, Calm, Obese Cardiovascular: Yes: Regular Rate and Rhythm. No: Gallop, Murmur, Rub Respiratory: Yes: Regular, On Nasal O2, Rhonchi. No: CTA Bilaterally, Rales, Wheezes Gastrointestinal: Yes: Normal Bowel Sounds, Soft. No: Distention, Tenderness Extremities: Yes: WNL Edema: No Labs: CBC, BMP 08/29/18 11:45 08/29/18 06:30 INR, PTT INR 1.23 (0.83-1.09) H 08/28/18 06:30 Problem List - Problems (1) Septic shock Code(s): A41.9 - SEPSIS, UNSPECIFIED ORGANISM; R65.21 - SEVERE SEPSIS WITH SEPTIC SHOCK (2) Cellulitis Code(s): L03.90 - CELLULITIS, UNSPECIFIED Qualifiers: Site of cellulitis: extremity Site of cellulitis of extremity: lower extremity Laterality: left Qualified Code(s): L03.116 - Cellulitis of left lower limb (3) NSTEMI (non-ST elevated myocardial infarction) Code(s): I21.4 - NON-ST ELEVATION (NSTEMI) MYOCARDIAL INFARCTION (4) CKD stage 4 due to type 2 diabetes mellitus Code(s): E11.22 - TYPE 2 DIABETES MELLITUS W DIABETIC CHRONIC KIDNEY DISEASE; N18.4 - CHRONIC KIDNEY DISEASE, STAGE 4 (SEVERE) (5) Diabetes mellitus Code(s): E11.9 - TYPE 2 DIABETES MELLITUS WITHOUT COMPLICATIONS Qualifiers: Diabetes mellitus type: type 2 Diabetes mellitus complication status: without complication (6) HLD (hyperlipidemia) Code(s): E78.5 - HYPERLIPIDEMIA, UNSPECIFIED Qualifiers: Hyperlipidemia type: pure hypercholesterolemia Qualified Code(s): E78.00 - Pure hypercholesterolemia, unspecified (7) HTN (hypertension) Code(s): I10 - ESSENTIAL (PRIMARY) HYPERTENSION Qualifiers: Hypertension type: essential hypertension Qualified Code(s): I10 - Essential (primary) hypertension (8) ICD (implantable cardioverter-defibrillator) in place Code(s): Z95.810 - PRESENCE OF AUTOMATIC (IMPLANTABLE) CARDIAC DEFIBRILLATOR (9) Systolic heart failure Code(s): I50.20 - UNSPECIFIED SYSTOLIC (CONGESTIVE) HEART FAILURE Qualifiers: Heart failure chronicity: acute on chronic Qualified Code(s): I50.23 - Acute on chronic systolic (congestive) heart failure Assessment/Plan 1. 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 L foot osteomyelitis -seen by podiatry and ID -continue IV rocephin 3. CHF -with cough and chest x-ray noted to have more fluid -monitor -? if can diurese or may need HD for this 4. Diabetes -continue current management 5. HTN -continue amlodipine and coreg 6. HLD -continue lipitor 7. NSTEMI/CAD -cardiology following -continue medical management 8. Morbid obesity -will need outpatient weight loss plan 9. Toxic encephalopathy with tremors -resolved -secondary to uremia
[2018-08-29] MEDS: ATORVASTATIN CA 80 MG TABLET (FP) PO SCH (21:51)
[2018-08-29] MEDS: INSULIN (LEVEMIR) 100 UNITS/ML UNITS SQ SCH (21:52)
[2018-08-30] MEDS: HEPARIN NA (PORCINE) 5,000 UNITS/ML 1ML VIAL SQ SCH ×3 (06:08→22:06)
[2018-08-30 06:59] LABS: BASO % 0.7 % (0-2.0); EOS % 1.5 % (0-4.5); HEMATOCRIT 24.4 % (35.4-49); HEMOGLOBIN 7.9 GM/dL (11.7-16.9); LYMPH % 11.3 % (8-40); MCH 28.3 pg (25.7-33.7); MCHC 32.5 g/dl (32.0-35.9); MEAN PLT VOLUME 7.1 fl (7.5-11.1); MONO % 10.4 % (3.8-10.2); NEUT % 76.1 % (42.8-82.8); PLATELET COUNT 328 K/MM3 (134-434); RDW 16.7 % (11.9-15.9)
[2018-08-30 07:54] LABS: ANION GAP 10 MMOL/L (8-16); BLOOD UREA NITROGEN 63 mg/dL (7-18); CALCIUM 8.5 mg/dL (8.5-10.1); CHLORIDE 102 mmol/L (98-107); CO2 27 mmol/L (21-32); CREATININE 3.6 mg/dL (0.55-1.3); GLUCOSE,RANDOM 117 mg/dL (74-106); MAGNESIUM 1.9 mg/dL (1.8-2.4); PHOSPHOROUS 3.2 mg/dL (2.5-4.9); POTASSIUM 3.8 mmol/L (3.5-5.1); SODIUM 140 mmol/L (136-145)
[2018-08-30] MEDS: INSULIN SLIDING SCALE (NOVOLOG) 1 VIAL SQ SCH ×4 (08:00→22:06)
[2018-08-30] MEDS: MUPIROCIN CA 2% TOPICAL CREAM 15 GM TUBE TP SCH ×2 (10:22→22:06)
[2018-08-30] MEDS: CARVEDILOL 25 MG TABLET (FP) PO SCH ×2 (10:42→22:05)
[2018-08-30] MEDS: OMEGA-3 ACID ETHYL ESTERS (FATTY-ACIDS) 1 GM CAPSULE (FP) PO SCH ×2 (10:42→22:05)
[2018-08-30] MEDS: LACTOBACILLUS ACIDOPHILUS 1 TABLET PO SCH (10:42)
[2018-08-30] MEDS: RANOLAZINE E.R. 500 MG TABLET (FP) PO SCH ×2 (10:42→22:05)
[2018-08-30] MEDS: FLUTICASONE PROP 0.05% 16 GM NASAL SPRAY NS SCH ×3 (10:42→22:19)
[2018-08-30] MEDS: amLODIPine BESYLATE 5 MG TABLET (FP) PO SCH (10:42)
[2018-08-30] MEDS: RANITIDINE HCL 150 MG TABLET (FP) PO SCH ×2 (10:42→22:05)
[2018-08-30] MEDS: CALCIUM ACETATE 667 MG CAPSULE (FP) PO SCH ×3 (10:42→17:38)
[2018-08-30] MEDS: ASPIRIN 81 MG CHEWABLE TABLETS PO SCH (10:42)
[2018-08-30] MEDS: CLOPIDOGREL BISULFATE 75 MG TABLET (FP) PO SCH (10:42)
[2018-08-30] MEDS ORDERED: CEFTRIAXONE 2 GM in DEXTROSE 5%-WATER 100 ML IVPB ONE (10:45)
--- NOTE | 2018-08-30 11:07 | PN ---
Progress Note, Physician History of Present Illness: PULMONARY ALERT,FEELING BETTER,MIN SOB WITH EXERTION. ASTERIXIS RESOLVED - Current Medication List Current Medications: Active Medications Acetaminophen (Tylenol -) 650 mg PO Q4H PRN PRN Reason: FEVER Last Admin: 08/29/18 11:22 Dose: 650 mg Amlodipine Besylate (Norvasc -) 5 mg PO DAILY [facility] Last Admin: 08/30/18 10:42 Dose: 5 mg Aspirin (Asa -) 81 mg PO DAILY [facility] Last Admin: 08/30/18 10:42 Dose: 81 mg Atorvastatin Calcium (Lipitor -) 80 mg PO HS [facility] Last Admin: 08/29/18 21:51 Dose: 80 mg Calcium Acetate (Phoslo -) 1,334 mg PO TIDCM [facility] Last Admin: 08/30/18 10:42 Dose: 1,334 mg Carvedilol (Coreg -) 25 mg PO BID [facility] Last Admin: 08/30/18 10:42 Dose: 25 mg Clopidogrel Bisulfate (Plavix -) 75 mg PO DAILY [facility] Last Admin: 08/30/18 10:42 Dose: 75 mg Fluticasone Propionate (Flonase -) 1 spray NS BID [facility] Last Admin: 08/30/18 10:42 Dose: 1 spray Guaifenesin/Codeine Phosphate (Robitussin Ac -) 5 ml PO Q8H PRN PRN Reason: COUGH Last Admin: 08/29/18 21:50 Dose: 5 ml Heparin Sodium (Porcine) (Heparin -) 5,000 unit SQ TID [facility] Last Admin: 08/30/18 06:08 Dose: 5,000 unit Ceftriaxone Sodium 2 gm/ (Dextrose) 100 mls @ 200 mls/hr IVPB ONCE ONE; Protocol Stop: 08/30/18 11:14 Insulin Aspart (Novolog Vial Sliding Scale -) 1 vial SQ HS [facility]; Protocol Last Admin: 08/29/18 21:52 Dose: Not Given Insulin Aspart (Novolog Vial Sliding Scale -) 1 vial SQ TIDAC [facility]; Protocol Last Admin: 08/29/18 18:18 Dose: 18 unit Insulin Detemir (Levemir Vial) 46 units SQ HS [facility] Last Admin: 08/29/18 21:52 Dose: 46 units Lactobacillus Acidophilus (Bacid -) 1 tab PO DAILY [facility] Last Admin: 08/30/18 10:42 Dose: 1 tab Mupirocin (Bactroban 2% Cream -) 1 applic TP BID [facility] Last Admin: 08/29/18 21:51 Dose: 1 applic Nagwu-1-Rfby Ethyl Esters (Lovaza -) 2 gm PO BID [facility] Last Admin: 08/30/18 10:42 Dose: 2 gm Ranitidine HCl (Zantac -) 150 mg PO BID [facility] Last Admin: 08/30/18 10:42 Dose: 150 mg Ranolazine (Ranexa -) 500 mg PO BID [facility] Last Admin: 08/30/18 10:42 Dose: 500 mg Sodium Chloride ([place] Nasal [place] -) 2 spray NS TID PRN PRN Reason: NASAL CONGESTION Last Admin: 08/28/18 12:04 Dose: 2 spray - Objective Vital Signs: Vital Signs Temperature 98.7 F 08/30/18 09:00 Pulse Rate 81 08/30/18 09:00 Respiratory Rate 20 08/30/18 09:00 Blood Pressure 129/67 08/30/18 09:00 O2 Sat by Pulse Oximetry (%) 95 08/30/18 09:00 Constitutional: Yes: Calm, Obese Eyes: Yes: WNL HENT: Yes: WNL Neck: Yes: WNL Cardiovascular: Yes: Regular Rate and Rhythm, S1, S2 Respiratory: Yes: Diminished Gastrointestinal: Yes: Normal Bowel Sounds, Soft Extremities: Yes: WNL Edema: Yes Edema: LLE: Trace, RLE: Trace Labs: CBC, BMP 08/30/18 05:30 08/30/18 05:30 INR, PTT INR 1.23 (0.83-1.09) H 08/28/18 06:30 Problem List - Problems (1) NSTEMI (non-ST elevated myocardial infarction) Code(s): I21.4 - NON-ST ELEVATION (NSTEMI) MYOCARDIAL INFARCTION (2) Sepsis Code(s): A41.9 - SEPSIS, UNSPECIFIED ORGANISM Qualifiers: Sepsis type: sepsis due to unspecified organism Qualified Code(s): A41.9 - Sepsis, unspecified organism (3) Troponin I above reference range Code(s): R74.8 - ABNORMAL LEVELS OF OTHER SERUM ENZYMES (4) Acute on chronic kidney failure Code(s): N17.9 - ACUTE KIDNEY FAILURE, UNSPECIFIED; N18.9 - CHRONIC KIDNEY DISEASE, UNSPECIFIED Qualifiers: Acute renal failure type: unspecified Chronic kidney disease stage: unspecified stage Qualified Code(s): N17.9 - Acute kidney failure, unspecified ; N18.9 - Chronic kidney disease, unspecified (5) Acute on chronic systolic (congestive) heart failure Code(s): I50.23 - ACUTE ON CHRONIC SYSTOLIC (CONGESTIVE) HEART FAILURE (6) Anemia Code(s): D64.9 - ANEMIA, UNSPECIFIED Qualifiers: Anemia type: unspecified type Qualified Code(s): D64.9 - Anemia, unspecified (7) Aortic valve stenosis Code(s): I35.0 - NONRHEUMATIC AORTIC (VALVE) STENOSIS Qualifiers: Cardiac valve disease etiology: nonrheumatic Qualified Code(s): I35.0 - Nonrheumatic aortic (valve) stenosis (8) CAD (coronary artery disease) Code(s): I25.10 - ATHSCL HEART DISEASE OF [place] CORONARY ARTERY W/O ANG PCTRS Qualifiers: Coronary Disease-Associated Artery/Lesion type: [place] artery [place] vs. transplanted heart: [place] heart Associated angina: without angina Qualified Code(s): I25.10 - Atherosclerotic heart disease of [place] coronary artery without angina pectoris (9) CKD stage 4 due to type 2 diabetes mellitus Code(s): E11.22 - TYPE 2 DIABETES MELLITUS W DIABETIC CHRONIC KIDNEY DISEASE; N18.4 - CHRONIC KIDNEY DISEASE, STAGE 4 (SEVERE) (10) History of coronary artery stent placement Code(s): Z95.5 - PRESENCE OF CORONARY ANGIOPLASTY IMPLANT AND GRAFT (11) Hx of CABG Code(s): Z95.1 - PRESENCE OF AORTOCORONARY BYPASS GRAFT (12) ICD (implantable cardioverter-defibrillator) in place Code(s): Z95.810 - PRESENCE OF AUTOMATIC (IMPLANTABLE) CARDIAC DEFIBRILLATOR Assessment/Plan ASSESSMENT AND PLAN: Acute on Chronic Systolic Heart Failure Acute NSTEMI CAD s/p CABG Acute on Chronic Renal Failure HTN DM Cellulitis Anemia - antibiotics - HD as per renal - daily weights - ASA, plavix - beta sandee, statin - O2 to keep SpO2 >90% - monitor lytes,renal function,h+h DR PRIETO
--- NOTE | 2018-08-30 11:09 | PN ---
Progress Note (short form) - Note Progress Note: Feels good Blood sugar improving Vital Signs Period Temp Pulse Resp BP Sys/Gallo Pulse Ox Last 24 Hr 98.1 F-99.0 F 74-81 18-20 122-159/67-76 94-96 PE: AOx3 Neck: Supple, HEENT: EOMI Lungs: cTA CVS: S1S2 Abd: Benign EXt: slight erythema left 2nd toe + Edema Neuro: No focal deficit CMP Sodium 140 mmol/L (136-145) 08/30/18 05:30 Potassium 3.8 mmol/L (3.5-5.1) 08/30/18 05:30 Chloride 102 mmol/L (98-107) 08/30/18 05:30 Carbon Dioxide 27 mmol/L (21-32) 08/30/18 05:30 Anion Gap 10 MMOL/L (8-16) 08/30/18 05:30 BUN 63 mg/dL (7-18) H 08/30/18 05:30 Creatinine 3.6 mg/dL (0.55-1.3) H 08/30/18 05:30 Creat Clearance w eGFR 17.63 (>60) 08/30/18 05:30 POC Glucometer 132 UNITS (80-120) 08/30/18 05:58 Random Glucose 117 mg/dL (74-106) H 08/30/18 05:30 Hemoglobin A1c % 6.0 % (4.2-6.3) 08/19/18 05:15 Lactic Acid 1.1 mmol/L (0.4-2.0) 08/17/18 20:20 Calcium 8.5 mg/dL (8.5-10.1) 08/30/18 05:30 Phosphorus 3.2 mg/dL (2.5-4.9) 08/30/18 05:30 Magnesium 1.9 mg/dL (1.8-2.4) 08/30/18 05:30 Iron 181 ug/dL (38-169) H 08/28/18 06:30 TIBC 209 ug/dL (250-450) L 08/28/18 06:30 Iron Saturation 87 % (15-55) H 08/28/18 06:30 Ferritin 199.4 ng/ml (8-388) 08/28/18 06:30 Total Bilirubin 0.8 mg/dL (0.2-1) 08/29/18 06:30 AST 20 U/L (15-37) 08/29/18 06:30 ALT 23 U/L (13-61) 08/29/18 06:30 Alkaline Phosphatase 76 U/L (45-117) 08/29/18 06:30 Creatine Kinase 402 IU/L (26-308) H 08/19/18 05:15 Creatine Kinase Index 2.8 % (0.0-5.0) 08/19/18 05:15 CK-MB (CK-2) 11.6 ng/mL (0.5-3.6) H 08/19/18 05:15 Troponin I 19.10 ng/ml (0.00-0.05) H* 08/19/18 05:15 B-Natriuretic Peptide 01677.6 pg/ml (5-125) H 08/20/18 05:30 Total Protein 6.7 g/dl (6.4-8.2) 08/29/18 06:30 Albumin 2.0 g/dl (3.4-5.0) L 08/29/18 06:30 Current Medications Generic Name Dose Route Start Last Admin Trade Name Freq PRN Reason Stop Dose Admin Acetaminophen 650 mg 08/24/18 20:52 08/29/18 11:22 Tylenol - PO 650 mg Q4H PRN Administration FEVER Amlodipine Besylate 5 mg 08/29/18 10:00 08/30/18 10:42 Norvasc - PO 5 mg DAILY [facility] Administration Aspirin 81 mg 08/25/18 10:00 08/30/18 10:42 Asa - PO 81 mg DAILY [facility] Administration Atorvastatin Calcium 80 mg 08/24/18 22:00 08/29/18 21:51 Lipitor - PO 80 mg HS [facility] Administration Calcium Acetate 1,334 mg 08/24/18 17:30 08/30/18 10:42 Phoslo - PO 1,334 mg TIDCM [facility] Administration Carvedilol 25 mg 08/24/18 22:00 08/30/18 10:42 Coreg - PO 25 mg BID [facility] Administration Clopidogrel Bisulfate 75 mg 08/25/18 10:00 08/30/18 10:42 Plavix - PO 75 mg DAILY [facility] Administration Fluticasone Propionate 1 spray 08/24/18 22:00 08/30/18 10:42 Flonase - NS 1 spray BID [facility] Administration Guaifenesin/Codeine Phosphate 5 ml 08/28/18 19:00 08/29/18 21:50 Robitussin Ac - PO 5 ml Q8H PRN Administration COUGH Heparin Sodium (Porcine) 5,000 unit 08/24/18 22:00 08/30/18 06:08 Heparin - SQ 5,000 unit TID [facility] Administration Ceftriaxone Sodium 2 gm/ 100 mls @ 200 mls/hr 08/30/18 10:45 Dextrose IVPB 08/30/18 11:14 ONCE ONE Protocol Insulin Aspart 1 vial 08/24/18 22:00 08/29/18 21:52 Novolog Vial Sliding Scale - SQ Not Given HS [facility] Protocol Insulin Aspart 1 vial 08/28/18 11:46 08/29/18 18:18 Novolog Vial Sliding Scale - SQ 18 unit TIDAC [facility] Administration Protocol Insulin Detemir 46 units 08/28/18 22:00 08/29/18 21:52 Levemir Vial SQ 46 units HS [facility] Administration Lactobacillus Acidophilus 1 tab 08/25/18 10:00 08/30/18 10:42 Bacid - PO 1 tab DAILY [facility] Administration Mupirocin 1 applic 08/24/18 22:00 08/29/18 21:51 Bactroban 2% Cream - TP 1 applic BID [facility] Administration [id number]-5-[id number] Ethyl Esters 2 gm 08/24/18 22:00 08/30/18 10:42 Lovaza - PO 2 gm BID [facility] Administration Ranitidine HCl 150 mg 08/24/18 22:00 08/30/18 10:42 Zantac - PO 150 mg BID [facility] Administration Ranolazine 500 mg 08/24/18 22:00 08/30/18 10:42 Ranexa - PO 500 mg BID [facility] Administration Sodium Chloride 2 spray 08/24/18 20:52 08/28/18 12:04 [place] Nasal [place] - NS 2 spray TID PRN Administration NASAL CONGESTION AP: Left 2nd toe cellulitis: improving Osteomyelitis: Bone scan suspicious for osteo left 2nd toe T2DM On Insulin pump at home HECTOR on CKD HLD CAD/Elevated Troponins: Probably secondary to demand ischemia CHF BGM Q ACHS Off Insulin pump Levemir 46 units daily at HS Novolog SS coverage IV abx Will f/u
[2018-08-30] MEDS ORDERED: DEXTROSE 5%-WATER 100 ML IVPB ONE (11:10)
[2018-08-30] MEDS: CEFTRIAXONE 2 GM in DEXTROSE 5%-WATER 100 ML IVPB SCH (11:25)
--- NOTE | 2018-08-30 12:03 | PN ---
Progress Note, Physician Chief Complaint: Mr Long says his coughing is improved and his edema is less. Overall feeling well. Denies cp, sob, n/v. - Current Medication List Current Medications: Active Medications Acetaminophen (Tylenol -) 650 mg PO Q4H PRN PRN Reason: FEVER Last Admin: 08/29/18 11:22 Dose: 650 mg Amlodipine Besylate (Norvasc -) 5 mg PO DAILY [facility] Last Admin: 08/30/18 10:42 Dose: 5 mg Aspirin (Asa -) 81 mg PO DAILY [facility] Last Admin: 08/30/18 10:42 Dose: 81 mg Atorvastatin Calcium (Lipitor -) 80 mg PO HS [facility] Last Admin: 08/29/18 21:51 Dose: 80 mg Calcium Acetate (Phoslo -) 1,334 mg PO TIDCM [facility] Last Admin: 08/30/18 10:42 Dose: 1,334 mg Carvedilol (Coreg -) 25 mg PO BID [facility] Last Admin: 08/30/18 10:42 Dose: 25 mg Clopidogrel Bisulfate (Plavix -) 75 mg PO DAILY [facility] Last Admin: 08/30/18 10:42 Dose: 75 mg Fluticasone Propionate (Flonase -) 1 spray NS BID [facility] Last Admin: 08/30/18 10:42 Dose: 1 spray Guaifenesin/Codeine Phosphate (Robitussin Ac -) 5 ml PO Q8H PRN PRN Reason: COUGH Last Admin: 08/29/18 21:50 Dose: 5 ml Heparin Sodium (Porcine) (Heparin -) 5,000 unit SQ TID [facility] Last Admin: 08/30/18 06:08 Dose: 5,000 unit Insulin Aspart (Novolog Vial Sliding Scale -) 1 vial SQ HS [facility]; Protocol Last Admin: 08/29/18 21:52 Dose: Not Given Insulin Aspart (Novolog Vial Sliding Scale -) 1 vial SQ TIDAC [facility]; Protocol Last Admin: 08/29/18 18:18 Dose: 18 unit Insulin Detemir (Levemir Vial) 46 units SQ HS [facility] Last Admin: 08/29/18 21:52 Dose: 46 units Lactobacillus Acidophilus (Bacid -) 1 tab PO DAILY [facility] Last Admin: 08/30/18 10:42 Dose: 1 tab Mupirocin (Bactroban 2% Cream -) 1 applic TP BID [facility] Last Admin: 08/29/18 21:51 Dose: 1 applic Wlory-8-Pzan Ethyl Esters (Lovaza -) 2 gm PO BID [facility] Last Admin: 08/30/18 10:42 Dose: 2 gm Ranitidine HCl (Zantac -) 150 mg PO BID [facility] Last Admin: 08/30/18 10:42 Dose: 150 mg Ranolazine (Ranexa -) 500 mg PO BID [facility] Last Admin: 08/30/18 10:42 Dose: 500 mg Sodium Chloride ([place] Nasal [place] -) 2 spray NS TID PRN PRN Reason: NASAL CONGESTION Last Admin: 08/28/18 12:04 Dose: 2 spray - Objective Vital Signs: Vital Signs Temperature 37.1 C 08/30/18 09:00 Pulse Rate 81 08/30/18 09:00 Respiratory Rate 20 08/30/18 09:00 Blood Pressure 129/67 08/30/18 09:00 O2 Sat by Pulse Oximetry (%) 95 08/30/18 09:00 Constitutional: Yes: No Distress, Calm, Obese Cardiovascular: Yes: Regular Rate and Rhythm. No: Gallop, Murmur, Rub Respiratory: Yes: Regular, CTA Bilaterally. No: Rales, Rhonchi, Wheezes Gastrointestinal: Yes: Normal Bowel Sounds, Soft. No: Distention, Tenderness Extremities: Yes: WNL Edema: No Labs: CBC, BMP 08/30/18 05:30 08/30/18 05:30 INR, PTT INR 1.23 (0.83-1.09) H 08/28/18 06:30 Problem List - Problems (1) Septic shock Code(s): A41.9 - SEPSIS, UNSPECIFIED ORGANISM; R65.21 - SEVERE SEPSIS WITH SEPTIC SHOCK (2) Cellulitis Code(s): L03.90 - CELLULITIS, UNSPECIFIED Qualifiers: Site of cellulitis: extremity Site of cellulitis of extremity: lower extremity Laterality: left Qualified Code(s): L03.116 - Cellulitis of left lower limb (3) NSTEMI (non-ST elevated myocardial infarction) Code(s): I21.4 - NON-ST ELEVATION (NSTEMI) MYOCARDIAL INFARCTION (4) CKD stage 4 due to type 2 diabetes mellitus Code(s): E11.22 - TYPE 2 DIABETES MELLITUS W DIABETIC CHRONIC KIDNEY DISEASE; N18.4 - CHRONIC KIDNEY DISEASE, STAGE 4 (SEVERE) (5) Diabetes mellitus Code(s): E11.9 - TYPE 2 DIABETES MELLITUS WITHOUT COMPLICATIONS Qualifiers: Diabetes mellitus type: type 2 Diabetes mellitus complication status: without complication (6) HLD (hyperlipidemia) Code(s): E78.5 - HYPERLIPIDEMIA, UNSPECIFIED Qualifiers: Hyperlipidemia type: pure hypercholesterolemia Qualified Code(s): E78.00 - Pure hypercholesterolemia, unspecified (7) HTN (hypertension) Code(s): I10 - ESSENTIAL (PRIMARY) HYPERTENSION Qualifiers: Hypertension type: essential hypertension Qualified Code(s): I10 - Essential (primary) hypertension (8) ICD (implantable cardioverter-defibrillator) in place Code(s): Z95.810 - PRESENCE OF AUTOMATIC (IMPLANTABLE) CARDIAC DEFIBRILLATOR (9) Systolic heart failure Code(s): I50.20 - UNSPECIFIED SYSTOLIC (CONGESTIVE) HEART FAILURE Qualifiers: Heart failure chronicity: acute on chronic Qualified Code(s): I50.23 - Acute on chronic systolic (congestive) heart failure Assessment/Plan 1. HECTOR on CKD -case d/w Dr Pendleton -continue to monitor off HD -if does not need it further, plan to remove HD catheter -can use lasix if get fluid overloaded 2. L foot osteomyelitis -seen by podiatry and ID -continue IV rocephin -will need long-term antibiotics 3. CHF -with cough and chest x-ray noted to have more fluid -monitor -can use lasix -would avoid entresto 4. Diabetes -continue current management 5. HTN -continue amlodipine and coreg 6. HLD -continue lipitor 7. NSTEMI/CAD -cardiology following -continue medical management 8. Morbid obesity -will need outpatient weight loss plan 9. Toxic encephalopathy with tremors -resolved -secondary to uremia
--- NOTE | 2018-08-30 12:23 | PN ---
Progress Note (short form) - Note Progress Note: Renal follow up for HECTOR on CKD Pt seen and examined at the bedside feels good has mild sob making urine via joiner no cp, abd pain, N/V/D no further bleeding from groin site Vital Signs Temperature 98.7 F 08/30/18 09:00 Pulse Rate 81 08/30/18 09:00 Respiratory Rate 20 08/30/18 09:00 Blood Pressure 129/67 08/30/18 09:00 O2 Sat by Pulse Oximetry (%) 95 08/30/18 09:00 Intake & Output 08/27/18 08/28/18 08/29/18 08/30/18 23:59 23:59 23:59 23:59 Intake Total 930 990 350 Output Total 300 1050 1000 800 Balance 630 -60 -650 -800 Weight 128.094 kg 128.094 kg NAD awake and alert RRR, no M/R DEc BS, no rales trace LE edema CBC, BMP 08/30/18 05:30 08/30/18 05:30 Current Medications Acetaminophen (Tylenol -) 650 mg PO Q4H PRN PRN Reason: FEVER Last Admin: 08/29/18 11:22 Dose: 650 mg Amlodipine Besylate (Norvasc -) 5 mg PO DAILY [facility] Last Admin: 08/30/18 10:42 Dose: 5 mg Aspirin (Asa -) 81 mg PO DAILY [facility] Last Admin: 08/30/18 10:42 Dose: 81 mg Atorvastatin Calcium (Lipitor -) 80 mg PO HS [facility] Last Admin: 08/29/18 21:51 Dose: 80 mg Calcium Acetate (Phoslo -) 1,334 mg PO TIDCM [facility] Last Admin: 08/30/18 10:42 Dose: 1,334 mg Carvedilol (Coreg -) 25 mg PO BID [facility] Last Admin: 08/30/18 10:42 Dose: 25 mg Clopidogrel Bisulfate (Plavix -) 75 mg PO DAILY [facility] Last Admin: 08/30/18 10:42 Dose: 75 mg Fluticasone Propionate (Flonase -) 1 spray NS BID [facility] Last Admin: 08/30/18 10:42 Dose: 1 spray Guaifenesin/Codeine Phosphate (Robitussin Ac -) 5 ml PO Q8H PRN PRN Reason: COUGH Last Admin: 08/29/18 21:50 Dose: 5 ml Heparin Sodium (Porcine) (Heparin -) 5,000 unit SQ TID [facility] Last Admin: 08/30/18 06:08 Dose: 5,000 unit Insulin Aspart (Novolog Vial Sliding Scale -) 1 vial SQ HS [facility]; Protocol Last Admin: 08/29/18 21:52 Dose: Not Given Insulin Aspart (Novolog Vial Sliding Scale -) 1 vial SQ TIDAC [facility]; Protocol Last Admin: 08/29/18 18:18 Dose: 18 unit Insulin Detemir (Levemir Vial) 46 units SQ HS [facility] Last Admin: 08/29/18 21:52 Dose: 46 units Lactobacillus Acidophilus (Bacid -) 1 tab PO DAILY [facility] Last Admin: 08/30/18 10:42 Dose: 1 tab Mupirocin (Bactroban 2% Cream -) 1 applic TP BID [facility] Last Admin: 08/29/18 21:51 Dose: 1 applic Ebszx-6-Hyqa Ethyl Esters (Lovaza -) 2 gm PO BID [facility] Last Admin: 08/30/18 10:42 Dose: 2 gm Ranitidine HCl (Zantac -) 150 mg PO BID [facility] Last Admin: 08/30/18 10:42 Dose: 150 mg Ranolazine (Ranexa -) 500 mg PO BID [facility] Last Admin: 08/30/18 10:42 Dose: 500 mg Sodium Chloride ([place] Nasal [place] -) 2 spray NS TID PRN PRN Reason: NASAL CONGESTION Last Admin: 08/28/18 12:04 Dose: 2 spray 57 year old gentleman with hx of 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
--- NOTE | 2018-08-30 12:35 | PN ---
Progress Note, Physician History of Present Illness: Denies orthopnea and dyspnea, diuretics resumed. Asterixis and tremors resolved post HD for uremia symptoms. - Current Medication List Current Medications: Active Medications Acetaminophen (Tylenol -) 650 mg PO Q4H PRN PRN Reason: FEVER Last Admin: 08/29/18 11:22 Dose: 650 mg Amlodipine Besylate (Norvasc -) 5 mg PO DAILY [facility] Last Admin: 08/30/18 10:42 Dose: 5 mg Aspirin (Asa -) 81 mg PO DAILY [facility] Last Admin: 08/30/18 10:42 Dose: 81 mg Atorvastatin Calcium (Lipitor -) 80 mg PO HS [facility] Last Admin: 08/29/18 21:51 Dose: 80 mg Calcium Acetate (Phoslo -) 1,334 mg PO TIDCM [facility] Last Admin: 08/30/18 10:42 Dose: 1,334 mg Carvedilol (Coreg -) 25 mg PO BID [facility] Last Admin: 08/30/18 10:42 Dose: 25 mg Clopidogrel Bisulfate (Plavix -) 75 mg PO DAILY [facility] Last Admin: 08/30/18 10:42 Dose: 75 mg Epoetin Masood (Epogen -) 20,000 unit SQ MOWEFR [facility] Fluticasone Propionate (Flonase -) 1 spray NS BID [facility] Last Admin: 08/30/18 10:42 Dose: 1 spray Guaifenesin/Codeine Phosphate (Robitussin Ac -) 5 ml PO Q8H PRN PRN Reason: COUGH Last Admin: 08/29/18 21:50 Dose: 5 ml Heparin Sodium (Porcine) (Heparin -) 5,000 unit SQ TID [facility] Last Admin: 08/30/18 06:08 Dose: 5,000 unit Insulin Aspart (Novolog Vial Sliding Scale -) 1 vial SQ HS [facility]; Protocol Last Admin: 08/29/18 21:52 Dose: Not Given Insulin Aspart (Novolog Vial Sliding Scale -) 1 vial SQ TIDAC [facility]; Protocol Last Admin: 08/30/18 12:24 Dose: Not Given Insulin Detemir (Levemir Vial) 46 units SQ HS [facility] Last Admin: 08/29/18 21:52 Dose: 46 units Lactobacillus Acidophilus (Bacid -) 1 tab PO DAILY [facility] Last Admin: 08/30/18 10:42 Dose: 1 tab Mupirocin (Bactroban 2% Cream -) 1 applic TP BID [facility] Last Admin: 08/29/18 21:51 Dose: 1 applic [id number] Ethyl Esters (Lovaza -) 2 gm PO BID [facility] Last Admin: 08/30/18 10:42 Dose: 2 gm Ranitidine HCl (Zantac -) 150 mg PO BID [facility] Last Admin: 08/30/18 10:42 Dose: 150 mg Ranolazine (Ranexa -) 500 mg PO BID [facility] Last Admin: 08/30/18 10:42 Dose: 500 mg Sodium Chloride ([place] Nasal [place] -) 2 spray NS TID PRN PRN Reason: NASAL CONGESTION Last Admin: 08/28/18 12:04 Dose: 2 spray Torsemide (Demadex -) 20 mg PO DAILY [facility] - Objective Vital Signs: Vital Signs Temperature 98.7 F 08/30/18 09:00 Pulse Rate 81 08/30/18 09:00 Respiratory Rate 20 08/30/18 09:00 Blood Pressure 129/67 08/30/18 09:00 O2 Sat by Pulse Oximetry (%) 95 08/30/18 09:00 Constitutional: Yes: No Distress, Calm Neck: Yes: Supple Cardiovascular: Yes: Regular Rate and Rhythm Respiratory: Yes: Regular, Diminished Gastrointestinal: Yes: Normal Bowel Sounds, Soft, Abdomen, Obese Genitourinary: Yes: Diaz Present Edema: Yes Edema: LLE: Trace, RLE: Trace Labs: CBC, BMP 08/30/18 05:30 08/30/18 05:30 INR, PTT INR 1.23 (0.83-1.09) H 08/28/18 06:30 - ....Imaging EKG: Report Reviewed (Tele: [facility]) Problem List - Problems (1) NSTEMI (non-ST elevated myocardial infarction) Code(s): I21.4 - NON-ST ELEVATION (NSTEMI) MYOCARDIAL INFARCTION (2) Sepsis Code(s): A41.9 - SEPSIS, UNSPECIFIED ORGANISM Qualifiers: Sepsis type: sepsis due to unspecified organism Qualified Code(s): A41.9 - Sepsis, unspecified organism (3) Acute on chronic kidney failure Code(s): N17.9 - ACUTE KIDNEY FAILURE, UNSPECIFIED; N18.9 - CHRONIC KIDNEY DISEASE, UNSPECIFIED Qualifiers: Acute renal failure type: unspecified Chronic kidney disease stage: unspecified stage Qualified Code(s): N17.9 - Acute kidney failure, unspecified ; N18.9 - Chronic kidney disease, unspecified (4) Acute on chronic systolic (congestive) heart failure Code(s): I50.23 - ACUTE ON CHRONIC SYSTOLIC (CONGESTIVE) HEART FAILURE (5) Dyspnea due to congestive heart failure Code(s): I50.9 - HEART FAILURE, UNSPECIFIED (6) Elevated troponin Code(s): R79.89 - OTHER SPECIFIED ABNORMAL FINDINGS OF BLOOD CHEMISTRY (7) HLD (hyperlipidemia) Code(s): E78.5 - HYPERLIPIDEMIA, UNSPECIFIED Qualifiers: Hyperlipidemia type: pure hypercholesterolemia Qualified Code(s): E78.00 - Pure hypercholesterolemia, unspecified (8) HTN (hypertension) Code(s): I10 - ESSENTIAL (PRIMARY) HYPERTENSION Qualifiers: Hypertension type: essential hypertension Qualified Code(s): I10 - Essential (primary) hypertension (9) History of coronary artery stent placement Code(s): Z95.5 - PRESENCE OF CORONARY ANGIOPLASTY IMPLANT AND GRAFT (10) Hx of CABG Code(s): Z95.1 - PRESENCE OF AORTOCORONARY BYPASS GRAFT (11) ICD (implantable cardioverter-defibrillator) in place Code(s): Z95.810 - PRESENCE OF AUTOMATIC (IMPLANTABLE) CARDIAC DEFIBRILLATOR (12) Systolic heart failure Code(s): I50.20 - UNSPECIFIED SYSTOLIC (CONGESTIVE) HEART FAILURE Qualifiers: Heart failure chronicity: acute on chronic Qualified Code(s): I50.23 - Acute on chronic systolic (congestive) heart failure (13) Sleep apnea Code(s): G47.30 - SLEEP APNEA, UNSPECIFIED Qualifiers: Sleep apnea type: obstructive Qualified Code(s): G47.33 - Obstructive sleep apnea (adult) (pediatric) (14) Uremia Code(s): N19 - UNSPECIFIED KIDNEY FAILURE Assessment/Plan 08/18/2018 Echo: Poor windows 1. Acute on chronic class II-III NYHA classification LV systolic failure 2. CAD post [place]/CABG, PCI/stent, demand ischemic injury history of an abnormal MPI study angina pectoris, plan for conservative medical management 3. Aortic stenosis, mild 4. HTN 5. IDDM 6. Hypercholesterolemia 7. Post prophylactic ICD implant, history of NSVT 8. Acute on CKD with hyperkalemia and uremia due to volume depletion in setting of diuretics + hemodyanic changes post HD via femoral shiley since d/charles 9. Anemia post transfusion 10. Gout 11. Obstructive sleep apnea 12. Left leg cellulitis PLAN: 1. Post HD for uremia, resume Demadex 20 qd with monitoring diuretic response renal function and electrolytes 2. Continue Coreg 25 bid 3. Would not resume Entresto 26/26 bid given low eGFR per renal 4. Continue Ranexa 500 bid 5. Continue Norvasc 5 qd 6. Continue Lipitor 80 qhs and Lovaza 2 bid 7. Continue Plavix 75 qd and ASA 81 qd with caution in view of the above noted anemia, transfuse as needed to maintain Hg equal or > 8.0 8. Complete antibiotic course as per the primary team 9. As outlined in the prior note plan to pursue medical management and therapy optimization and deferring any invasive strategy in view of the above noted CKD with acute exacerbation 10. DVT prophylaxis 11. Eventual RUE AVF, epogen for anemia, d/c marisel
[2018-08-30 13:24] VITALS: BMI 40.4
[2018-08-30] MEDS: TORSEMIDE 20 MG TABLET (FP) PO SCH (14:21)
[2018-08-30] MEDS ORDERED: PT OWN MED DRAWER 7, Y5N ONE (14:40)
[2018-08-30] MEDS: EPOETIN ALFA 20,000 UNIT/1 ML VIAL SQ SCH (16:54)
[2018-08-30] MEDS: guaiFENesin/CODEINE 5 ML UNIT-DOSE CUPS PO PRN (22:04)
[2018-08-30] MEDS: INSULIN (LEVEMIR) 100 UNITS/ML UNITS SQ SCH (22:05)
[2018-08-30] MEDS: ATORVASTATIN CA 80 MG TABLET (FP) PO SCH (22:05)
[2018-08-31] MEDS: HEPARIN NA (PORCINE) 5,000 UNITS/ML 1ML VIAL SQ SCH ×3 (06:41→21:46)
[2018-08-31] MEDS: INSULIN SLIDING SCALE (NOVOLOG) 1 VIAL SQ SCH ×4 (06:41→21:54)
--- NOTE | 2018-08-31 07:21 | PN ---
Progress Note (short form) - Note Progress Note: Chief Complaint: Events noted, notes reviewed, continues to report persistent exertional, denies any chest pain History of Present Illness: Seen and examined on telemetry. Events noted, notes reviewed, continues to report persistent exertional, denies any chest pain Echocardiography report noted, sub-optimal study unlikely patient has normal LV systolic function considering his prior history - Current Medication List Current Medications Acetaminophen (Tylenol -) 650 mg PO Q4H PRN PRN Reason: FEVER Last Admin: 08/29/18 11:22 Dose: 650 mg Amlodipine Besylate (Norvasc -) 5 mg PO DAILY [facility] Last Admin: 08/30/18 10:42 Dose: 5 mg Aspirin (Asa -) 81 mg PO DAILY [facility] Last Admin: 08/30/18 10:42 Dose: 81 mg Atorvastatin Calcium (Lipitor -) 80 mg PO HS [facility] Last Admin: 08/30/18 22:05 Dose: 80 mg Calcium Acetate (Phoslo -) 1,334 mg PO TIDCM [facility] Last Admin: 08/30/18 17:38 Dose: 1,334 mg Carvedilol (Coreg -) 25 mg PO BID [facility] Last Admin: 08/30/18 22:05 Dose: 25 mg Clopidogrel Bisulfate (Plavix -) 75 mg PO DAILY [facility] Last Admin: 08/30/18 10:42 Dose: 75 mg Epoetin Masood (Procrit -) 20,000 unit SQ MOWEFR [facility] Last Admin: 08/30/18 16:54 Dose: 20,000 unit Fluticasone Propionate (Flonase -) 1 spray NS BID [facility] Last Admin: 08/30/18 22:19 Dose: Not Given Guaifenesin/Codeine Phosphate (Robitussin Ac -) 5 ml PO Q8H PRN PRN Reason: COUGH Last Admin: 08/30/18 22:04 Dose: 5 ml Heparin Sodium (Porcine) (Heparin -) 5,000 unit SQ TID [facility] Last Admin: 08/31/18 06:41 Dose: 5,000 unit Insulin Aspart (Novolog Vial Sliding Scale -) 1 vial SQ HS [facility]; Protocol Last Admin: 08/30/18 22:06 Dose: 4 units Insulin Aspart (Novolog Vial Sliding Scale -) 1 vial SQ TIDAC [facility]; Protocol Last Admin: 08/31/18 06:41 Dose: Not Given Insulin Detemir (Levemir Vial) 46 units SQ HS [facility] Last Admin: 08/30/18 22:05 Dose: 46 units Lactobacillus Acidophilus (Bacid -) 1 tab PO DAILY [facility] Last Admin: 08/30/18 10:42 Dose: 1 tab Mupirocin (Bactroban 2% Cream -) 1 applic TP BID [facility] Last Admin: 08/30/18 22:06 Dose: 1 applic [id number] Ethyl Esters (Lovaza -) 2 gm PO BID [facility] Last Admin: 08/30/18 22:05 Dose: 2 gm Ranitidine HCl (Zantac -) 150 mg PO BID [facility] Last Admin: 08/30/18 22:05 Dose: 150 mg Ranolazine (Ranexa -) 500 mg PO BID [facility] Last Admin: 08/30/18 22:05 Dose: 500 mg Sodium Chloride ([place] Nasal [place] -) 2 spray NS TID PRN PRN Reason: NASAL CONGESTION Last Admin: 08/28/18 12:04 Dose: 2 spray Torsemide (Demadex -) 20 mg PO DAILY [facility] Last Admin: 08/30/18 14:21 Dose: 20 mg Review of Systems Constitutional: denies: Chills, Fever Cardiovascular: As Noted Above Respiratory: denies: Cough or Sputum Production Gastrointestinal: denies: Nausea, Vomiting, Constipation or Abdominal Pain Genitourinary: denies: Dysuria Musculoskeletal: No Symptoms Reported Neurological: denies: Dizziness, Headache - Objective Vital Signs: Last Vital Signs Temp Pulse Resp BP Pulse Ox 97.8 F 70 20 132/69 96 08/31/18 06:00 08/31/18 06:00 08/31/18 06:00 08/31/18 06:00 08/30/18 21:00 Intake & Output 08/28/18 08/29/18 08/30/18 08/31/18 23:59 23:59 23:59 23:59 Intake Total 990 350 50 10 Output Total 1050 1000 1250 400 Balance -60 -650 -1200 -390 Weight 282 lb 6.4 oz 282 lb 6.4 oz 283 lb 12.8 oz Neck: Supple Negative JVD Cardiovascular: S1 S2 Regular Rate and Rhythm Grade 2-3/6 LOAN Respiratory: Diminished Breath Sounds Bilaterally Gastrointestinal: Soft Benign Normal Bowel Sounds Ext: Trace Bilateral Edema Labs: CBC, BMP CBC, BMP 08/30/18 05:30 08/30/18 05:30 Hepatic Panel Total Bilirubin 0.8 mg/dL (0.2-1) 08/29/18 06:30 AST 20 U/L (15-37) 08/29/18 06:30 ALT 23 U/L (13-61) 08/29/18 06:30 Alkaline Phosphatase 76 U/L (45-117) 08/29/18 06:30 Albumin 2.0 g/dl (3.4-5.0) L 08/29/18 06:30 INR, PTT INR 1.23 (0.83-1.09) H 08/28/18 06:30 Assessment/Plan ASSESSMENT: 1. Acute on chronic class II-III NYHA classification LV failure related to LV systolic dysfunction, improving/resolving 2. CAD post [place]/CABG, PCI/stent, demand ischemic injury history of an abnormal MPI study angina pectoris, plan for conservative medical management 3. Aortic stenosis, mild 4. HTN 5. IDDM 6. Hypercholesterolemia 7. Post prophylactic ICD implant, history of NSVT 8. CKD with acute exacerbation 9. Anemia post transfusion 10. Gout 11. Obstructive sleep apnea PLAN: 1. Continue Demadex with close monitoring renal function and electrolytes 2. Continue Coreg 3. Recommend Entresto resumption once renal function at baseline with close monitoring renal function and electrolytes 4. Continue Ranexa 5. Continue Norvasc 6. Continue Lipitor 7. Continue Plavix and ASA with caution in view of the above noted anemia, transfuse as needed to maintain Hg equal or > 8.0 8. As outlined in the prior note plan to pursue medical management and therapy optimization and deferring any invasive strategy in view of the above noted CKD with acute exacerbation Bridgett Mullen M.D.
[2018-08-31 07:45] LABS: BASO % 0.7 % (0-2.0); EOS % 1.6 % (0-4.5); HEMATOCRIT 23.5 % (35.4-49); HEMOGLOBIN 8.1 GM/dL (11.7-16.9); LYMPH % 9.7 % (8-40); MCH 29.9 pg (25.7-33.7); MCHC 34.6 g/dl (32.0-35.9); MEAN CELL VOLUME 86.3 fl (80-96); MEAN PLT VOLUME 7.2 fl (7.5-11.1); MONO % 10.6 % (3.8-10.2); NEUT % 77.4 % (42.8-82.8); PLATELET COUNT 368 K/MM3 (134-434); RBC 2.72 M/mm3 (4.00-5.60); RDW 16.8 % (11.9-15.9); WHITE BLOOD COUNT 6.3 K/mm3 (4.0-10.0)
[2018-08-31 08:12] LABS: ANION GAP 9 MMOL/L (8-16); BLOOD UREA NITROGEN 76 mg/dL (7-18); CALCIUM 8.4 mg/dL (8.5-10.1); CHLORIDE 102 mmol/L (98-107); CO2 29 mmol/L (21-32); CREATININE 3.9 mg/dL (0.55-1.3); GLUCOSE,RANDOM 60 mg/dL (74-106); MAGNESIUM 1.9 mg/dL (1.8-2.4); PHOSPHOROUS 3.8 mg/dL (2.5-4.9); POTASSIUM 4.1 mmol/L (3.5-5.1); SODIUM 140 mmol/L (136-145)
[2018-08-31] MEDS: CALCIUM ACETATE 667 MG CAPSULE (FP) PO SCH ×3 (09:29→16:33)
[2018-08-31] MEDS ORDERED: PT OWN MED DRAWER 7, Y5N ONE (10:26)
[2018-08-31] MEDS: LACTOBACILLUS ACIDOPHILUS 1 TABLET PO SCH (10:30)
[2018-08-31] MEDS: CARVEDILOL 25 MG TABLET (FP) PO SCH ×2 (10:30→21:46)
[2018-08-31] MEDS: RANOLAZINE E.R. 500 MG TABLET (FP) PO SCH ×2 (10:30→21:48)
[2018-08-31] MEDS: TORSEMIDE 20 MG TABLET (FP) PO SCH (10:30)
[2018-08-31] MEDS: amLODIPine BESYLATE 5 MG TABLET (FP) PO SCH (10:31)
[2018-08-31] MEDS: RANITIDINE HCL 150 MG TABLET (FP) PO SCH ×2 (10:31→21:48)
[2018-08-31] MEDS: MUPIROCIN CA 2% TOPICAL CREAM 15 GM TUBE TP SCH ×2 (10:31→21:48)
[2018-08-31] MEDS: CLOPIDOGREL BISULFATE 75 MG TABLET (FP) PO SCH (10:31)
[2018-08-31] MEDS: ASPIRIN 81 MG CHEWABLE TABLETS PO SCH (10:31)
[2018-08-31] MEDS: FLUTICASONE PROP 0.05% 16 GM NASAL SPRAY NS SCH ×2 (10:31→21:46)
[2018-08-31] MEDS: OMEGA-3 ACID ETHYL ESTERS (FATTY-ACIDS) 1 GM CAPSULE (FP) PO SCH ×2 (10:31→21:47)
--- NOTE | 2018-08-31 12:23 | PN ---
Progress Note, Physician History of Present Illness: PULMONARY ALERT,SITTING UP IN BED,COMFORTABLLE AT REST ,+DELANEY,+ COUGH - Current Medication List Current Medications: Active Medications Acetaminophen (Tylenol -) 650 mg PO Q4H PRN PRN Reason: FEVER Last Admin: 08/29/18 11:22 Dose: 650 mg Amlodipine Besylate (Norvasc -) 5 mg PO DAILY [facility] Last Admin: 08/31/18 10:31 Dose: 5 mg Aspirin (Asa -) 81 mg PO DAILY [facility] Last Admin: 08/31/18 10:31 Dose: 81 mg Atorvastatin Calcium (Lipitor -) 80 mg PO HS [facility] Last Admin: 08/30/18 22:05 Dose: 80 mg Calcium Acetate (Phoslo -) 1,334 mg PO TIDCM [facility] Last Admin: 08/31/18 09:29 Dose: 1,334 mg Carvedilol (Coreg -) 25 mg PO BID [facility] Last Admin: 08/31/18 10:30 Dose: 25 mg Clopidogrel Bisulfate (Plavix -) 75 mg PO DAILY [facility] Last Admin: 08/31/18 10:31 Dose: 75 mg Epoetin Masood (Procrit -) 20,000 unit SQ MOWEFR [facility] Last Admin: 08/30/18 16:54 Dose: 20,000 unit Fluticasone Propionate (Flonase -) 1 spray NS BID [facility] Last Admin: 08/31/18 10:31 Dose: 1 spray Guaifenesin/Codeine Phosphate (Robitussin Ac -) 5 ml PO Q8H PRN PRN Reason: COUGH Last Admin: 08/30/18 22:04 Dose: 5 ml Heparin Sodium (Porcine) (Heparin -) 5,000 unit SQ TID [facility] Last Admin: 08/31/18 06:41 Dose: 5,000 unit Insulin Aspart (Novolog Vial Sliding Scale -) 1 vial SQ HS [facility]; Protocol Last Admin: 08/30/18 22:06 Dose: 4 units Insulin Aspart (Novolog Vial Sliding Scale -) 1 vial SQ TIDAC [facility]; Protocol Last Admin: 08/31/18 06:41 Dose: Not Given Insulin Detemir (Levemir Vial) 46 units SQ [facility] Last Admin: 08/30/18 22:05 Dose: 46 units Lactobacillus Acidophilus (Bacid -) 1 tab PO DAILY [facility] Last Admin: 08/31/18 10:30 Dose: 1 tab Mupirocin (Bactroban 2% Cream -) 1 applic TP BID [facility] Last Admin: 08/31/18 10:31 Dose: 1 applic [id number] Ethyl Esters (Lovaza -) 2 gm PO BID [facility] Last Admin: 08/31/18 10:31 Dose: 2 gm Ranitidine HCl (Zantac -) 150 mg PO BID [facility] Last Admin: 08/31/18 10:31 Dose: 150 mg Ranolazine (Ranexa -) 500 mg PO BID [facility] Last Admin: 08/31/18 10:30 Dose: 500 mg Sodium Chloride ([place] Nasal [place] -) 2 spray NS TID PRN PRN Reason: NASAL CONGESTION Last Admin: 08/28/18 12:04 Dose: 2 spray Torsemide (Demadex -) 20 mg PO DAILY [facility] Last Admin: 08/31/18 10:30 Dose: 20 mg - Objective Vital Signs: Vital Signs Temperature 98.2 F 08/31/18 09:00 Pulse Rate 76 08/31/18 09:00 Respiratory Rate 20 08/31/18 09:00 Blood Pressure 133/68 08/31/18 09:00 O2 Sat by Pulse Oximetry (%) 96 08/31/18 09:00 Constitutional: Yes: Calm, Obese Eyes: Yes: WNL HENT: Yes: WNL Neck: Yes: WNL Cardiovascular: Yes: Regular Rate and Rhythm, S1, S2 Respiratory: Yes: Diminished Gastrointestinal: Yes: Normal Bowel Sounds, Soft Extremities: Yes: WNL Edema: No Labs: CBC, BMP 08/31/18 05:30 08/31/18 05:30 INR, PTT INR 1.23 (0.83-1.09) H 08/28/18 06:30 Problem List - Problems (1) NSTEMI (non-ST elevated myocardial infarction) Code(s): I21.4 - NON-ST ELEVATION (NSTEMI) MYOCARDIAL INFARCTION (2) Sepsis Code(s): A41.9 - SEPSIS, UNSPECIFIED ORGANISM Qualifiers: Sepsis type: sepsis due to unspecified organism Qualified Code(s): A41.9 - Sepsis, unspecified organism (3) Troponin I above reference range Code(s): R74.8 - ABNORMAL LEVELS OF OTHER SERUM ENZYMES (4) Acute on chronic kidney failure Code(s): N17.9 - ACUTE KIDNEY FAILURE, UNSPECIFIED; N18.9 - CHRONIC KIDNEY DISEASE, UNSPECIFIED Qualifiers: Acute renal failure type: unspecified Chronic kidney disease stage: unspecified stage Qualified Code(s): N17.9 - Acute kidney failure, unspecified ; N18.9 - Chronic kidney disease, unspecified (5) Acute on chronic systolic (congestive) heart failure Code(s): I50.23 - ACUTE ON CHRONIC SYSTOLIC (CONGESTIVE) HEART FAILURE (6) Anemia Code(s): D64.9 - ANEMIA, UNSPECIFIED Qualifiers: Anemia type: unspecified type Qualified Code(s): D64.9 - Anemia, unspecified (7) Aortic valve stenosis Code(s): I35.0 - NONRHEUMATIC AORTIC (VALVE) STENOSIS Qualifiers: Cardiac valve disease etiology: nonrheumatic Qualified Code(s): I35.0 - Nonrheumatic aortic (valve) stenosis (8) CAD (coronary artery disease) Code(s): I25.10 - ATHSCL HEART DISEASE OF [place] CORONARY ARTERY W/O ANG PCTRS Qualifiers: Coronary Disease-Associated Artery/Lesion type: [place] artery [place] vs. transplanted heart: [place] heart Associated angina: without angina Qualified Code(s): I25.10 - Atherosclerotic heart disease of [place] coronary artery without angina pectoris (9) CKD stage 4 due to type 2 diabetes mellitus Code(s): E11.22 - TYPE 2 DIABETES MELLITUS W DIABETIC CHRONIC KIDNEY DISEASE; N18.4 - CHRONIC KIDNEY DISEASE, STAGE 4 (SEVERE) (10) History of coronary artery stent placement Code(s): Z95.5 - PRESENCE OF CORONARY ANGIOPLASTY IMPLANT AND GRAFT (11) Hx of CABG Code(s): Z95.1 - PRESENCE OF AORTOCORONARY BYPASS GRAFT (12) ICD (implantable cardioverter-defibrillator) in place Code(s): Z95.810 - PRESENCE OF AUTOMATIC (IMPLANTABLE) CARDIAC DEFIBRILLATOR Assessment/Plan ASSESSMENT AND PLAN: Acute on Chronic Systolic Heart Failure Acute NSTEMI CAD s/p CABG Acute on Chronic Renal Failure HTN DM Cellulitis Anemia - diuretics - daily weights - ASA, plavix - beta sandee, statin - O2 to keep SpO2 >90% - monitor lytes,renal function,h+h - chest x-ray - cough meds DR PRIETO
--- NOTE | 2018-08-31 15:58 | PN ---
Teaching Attending Note Name of Resident: Dianne Jefferson ATTENDING PHYSICIAN STATEMENT I saw and evaluated the patient. I reviewed the resident's note and discussed the case with the resident. I agree with the resident's findings and plan as documented. SUBJECTIVE: Mr Long says he is feeling good today. Has some swelling in his feet but otherwise is without complaint. No cp, sob, n/v. OBJECTIVE: Last Vital Signs Temp Pulse Resp BP Pulse Ox 36.7 C 79 18 139/56 L 96 08/31/18 15:05 08/31/18 15:05 08/31/18 15:05 08/31/18 15:05 08/31/18 09:00 Gen: nad, morbidly obese Pulm: ctab w/o w/r/r CV: rrr w/o m/r/g, distant Abd: +bs, s/nt/nd Ext: 2+ BLE edema CBC, BMP 08/31/18 05:30 08/31/18 05:30 ASSESSMENT AND PLAN: 1. HECTOR on CKD -case d/w Dr Pendleton -currently off HD -renal function normalizing, came in with Cr of 4.6 and BUN in 80s -monitor off HD, discharge planning once renal function and fluid status stable 2. L foot osteomyelitis -seen by podiatry and ID -continue IV rocephin -will need longwall foreman antibiotics 3. CHF -currently on torsemide -would avoid entresto per nephrology -may need further adjustment as has significant LE swelling 4. Diabetes -continue current management 5. HTN -continue amlodipine and coreg 6. HLD -continue lipitor 7. NSTEMI/CAD -cardiology following -continue medical management 8. Morbid obesity -will need outpatient weight loss plan 9. Toxic encephalopathy with tremors -resolved -secondary to uremia Problem List - Problems (1) Septic shock Code(s): A41.9 - SEPSIS, UNSPECIFIED ORGANISM; R65.21 - SEVERE SEPSIS WITH SEPTIC SHOCK (2) Cellulitis Code(s): L03.90 - CELLULITIS, UNSPECIFIED Qualifiers: Site of cellulitis: extremity Site of cellulitis of extremity: lower extremity Laterality: left Qualified Code(s): L03.116 - Cellulitis of left lower limb (3) NSTEMI (non-ST elevated myocardial infarction) Code(s): I21.4 - NON-ST ELEVATION (NSTEMI) MYOCARDIAL INFARCTION (4) CKD stage 4 due to type 2 diabetes mellitus Code(s): E11.22 - TYPE 2 DIABETES MELLITUS W DIABETIC CHRONIC KIDNEY DISEASE; N18.4 - CHRONIC KIDNEY DISEASE, STAGE 4 (SEVERE) (5) Diabetes mellitus Code(s): E11.9 - TYPE 2 DIABETES MELLITUS WITHOUT COMPLICATIONS Qualifiers: Diabetes mellitus type: type 2 Diabetes mellitus complication status: without complication (6) HLD (hyperlipidemia) Code(s): E78.5 - HYPERLIPIDEMIA, UNSPECIFIED Qualifiers: Hyperlipidemia type: pure hypercholesterolemia Qualified Code(s): E78.00 - Pure hypercholesterolemia, unspecified (7) HTN (hypertension) Code(s): I10 - ESSENTIAL (PRIMARY) HYPERTENSION Qualifiers: Hypertension type: essential hypertension Qualified Code(s): I10 - Essential (primary) hypertension (8) ICD (implantable cardioverter-defibrillator) in place Code(s): Z95.810 - PRESENCE OF AUTOMATIC (IMPLANTABLE) CARDIAC DEFIBRILLATOR (9) Systolic heart failure Code(s): I50.20 - UNSPECIFIED SYSTOLIC (CONGESTIVE) HEART FAILURE Qualifiers: Heart failure chronicity: acute on chronic Qualified Code(s): I50.23 - Acute on chronic systolic (congestive) heart failure
--- NOTE | 2018-08-31 16:03 | PN ---
Physical Exam: SUBJECTIVE: Patient seen and examined by me at bedside No overnight events noted. Patient reports left leg swelling but was still able to ambulate on it today Was seen by PT and was able to walk 60 feet on 4L 02 Otherwise, patient denies any fever, chills, nausea, vomiting, abdominal pain, chest pain, palpitations, shortness of breath. OBJECTIVE: Vital Signs Period Temp Pulse Resp BP Sys/Gallo Pulse Ox Last 24 Hr 97.8 F-98.4 F 70-79 18-20 132-144/56-85 96-96 GENERAL: The patient is awake, alert, and fully oriented, in no acute distress. EYES: Sclera anicteric, conjunctiva clear. No ptosis. ENT: Moist mucous membranes. LUNGS: Breath sounds equal, clear to auscultation bilaterally, no wheezes, no crackles, no accessory muscle use. on 4L 02 HEART: Regular rate and rhythm, S1, S2 (+) LOAN 2/6 ABDOMEN: Soft, Obese, nontender, nondistended, normoactive bowel sounds. EXTREMITIES: 1+ Pitting edema bilaterally NEUROLOGICAL: (-) [place] SKIN: Warm, dry, normal turgor, no rashes or lesions noted Laboratory Results - last 24 hr 08/31/18 08/31/18 08/31/18 05:30 05:30 06:36 WBC 6.3 RBC 2.72 L Hgb 8.1 L Hct 23.5 L MCV 86.3 MCH 29.9 MCHC 34.6 RDW 16.8 H Plt Count 368 MPV 7.2 L Absolute Neuts (auto) 4.9 Neutrophils % 77.4 Lymphocytes % 9.7 Monocytes % 10.6 H Eosinophils % 1.6 Basophils % 0.7 Nucleated RBC % 0 Sodium 140 Potassium 4.1 Chloride 102 Carbon Dioxide 29 Anion Gap 9 BUN 76 H Creatinine 3.9 H Creat Clearance w eGFR 16.07 POC Glucometer 73 Random Glucose 60 L Calcium 8.4 L Phosphorus 3.8 Magnesium 1.9 Troponin I 0.57 H Blood Type Antibody Screen Crossmatch Active Medications Generic Name Dose Route Start Last Admin Trade Name Freq PRN Reason Stop Dose Admin Acetaminophen 650 mg 08/24/18 20:52 08/29/18 11:22 Tylenol - PO 650 mg Q4H PRN Administration FEVER Amlodipine Besylate 5 mg 08/29/18 10:00 08/31/18 10:31 Norvasc - PO 5 mg DAILY CRIS Administration Aspirin 81 mg 08/25/18 10:00 08/31/18 10:31 Asa - PO 81 mg DAILY CRIS Administration Atorvastatin Calcium 80 mg 08/24/18 22:00 08/30/18 22:05 Lipitor - PO 80 mg HS CRIS Administration Calcium Acetate 1,334 mg 08/24/18 17:30 08/31/18 12:33 Phoslo - PO 1,334 mg TIDCM CRIS Administration Carvedilol 25 mg 08/24/18 22:00 08/31/18 10:30 Coreg - PO 25 mg BID CRIS Administration Clopidogrel Bisulfate 75 mg 08/25/18 10:00 08/31/18 10:31 Plavix - PO 75 mg DAILY CRIS Administration Epoetin Masood 20,000 unit 08/30/18 12:30 08/30/18 16:54 Procrit - SQ 20,000 unit MOWEFR [facility]IS Administration Fluticasone Propionate 1 spray 08/24/18 22:00 08/31/18 10:31 Flonase - NS 1 spray BID CRIS Administration Guaifenesin/Codeine Phosphate 5 ml 08/28/18 19:00 08/30/18 22:04 Robitussin Ac - PO 5 ml Q8H PRN Administration COUGH Heparin Sodium (Porcine) 5,000 unit 08/24/18 22:00 08/31/18 14:48 Heparin - SQ 5,000 unit TID CRIS Administration Ceftriaxone Sodium 2 gm in 50 mls @ 100 mls/hr 08/31/18 16:00 Ceftriaxone 2 Gm-D5w Bag IVPB DAILY [facility] Protocol Insulin Aspart 1 vial 08/24/18 22:00 08/30/18 22:06 Novolog Vial Sliding Scale - SQ 4 units HS CRIS Administration Protocol Insulin Aspart 1 vial 08/28/18 11:46 08/31/18 12:31 Novolog Vial Sliding Scale - SQ 8 unit TIDAC [facility] Administration Protocol Insulin Detemir 46 units 08/28/18 22:00 08/30/18 22:05 Levemir Vial SQ 46 units HS CRIS Administration Lactobacillus Acidophilus 1 tab 08/25/18 10:00 08/31/18 10:30 Bacid - PO 1 tab DAILY CRIS Administration Mupirocin 1 applic 08/24/18 22:00 08/31/18 10:31 Bactroban 2% Cream - TP 1 applic BID CRIS Administration [id number]-4-[id number] Ethyl Esters 2 gm 08/24/18 22:00 08/31/18 10:31 Lovaza - PO 2 gm BID CRIS Administration Ranitidine HCl 150 mg 08/24/18 22:00 08/31/18 10:31 Zantac - PO 150 mg BID CRIS Administration Ranolazine 500 mg 08/24/18 22:00 08/31/18 10:30 Ranexa - PO 500 mg BID CRIS Administration Sodium Chloride 2 spray 08/24/18 20:52 08/28/18 12:04 [place] Nasal [place] - NS 2 spray TID PRN Administration NASAL CONGESTION Torsemide 20 mg 08/30/18 13:30 08/31/18 10:30 Demadex - PO 20 mg DAILY CRIS Administration IMAGES: 08/23/18 bone scan: Increased blood flow, blood pool an delayed activity in the region of the left second toe suspicious for osteomyelitis 08/24/18 CXR: Shallow inspiration, cardiomegaly, no evidence of pneumonia, CHF 08/25/17 CXR: No evidence of vascular congestive changes, pulmonary infiltrates, pneumothorax or pleural effusion. ASSESSMENT/PLAN: Patient is a 57 year old male with significant PMHx IDDM (on insulin pump), HTN , HLD, CAD s/p CABG and s/p AICD, CHF, Aortic stenosis, CKD, p/w fever, rigors, malaise x 1 day, admitted to ICU for NSTEMI and sepsis. #Uremia requiring urgent Dialysis -S/P 3 sessions of emergent HD. -No acute indication for TEST CENTER ADMINISTRATOR at this time -Will need to trend renal function off dialysis. Continues to trend up in the last three days -Weight remains stable -Continue renal diet -Still making urine with 800cc yesterday and 900cc today #Left second digit -suspicion for osteomyelitis -Continue IV Ceftriaxone 2gm daily (Day #14) -Will likely require long tern abx #Volume overload likely from acute on chronic systolic dysfunction and CKD- improving -Continue oral torsemide 20mg Daily for volume management -Would not resume ELROY/ARB due to low eGFR, as per Nephro recommendations -Continue to monitor Daily weights and urine output. Weight remains stable 128.73kg (yesterday 128.094kg) #NSTEMI: -Trops trending down. Today 0.57 -Continue Statin 80 mg HS -Continue Aspirin 81 mg/Plavix -Continue Ranexa -Cardiology on board. #HECTOR on CKD likely secondary to hypoperfusion from Sepsis with overdiuresis on entresto -Continue Phoslo -Avoid nephrotoxic drugs -Avoid Entresto -No urgent TEST CENTER ADMINISTRATOR -Started on ProCrit for anemia TID -Will need to monitor addition 24-48 hours for creatinine to Plateau -Renal on board # HTN-controlled -Continue Coreg 25 mg PO BID ans Norvasc 5mg daily #IDDMII -Continue Levemir 40 Units. -ISS -BGM -Watch for hypoglycemic episodes #FEN -No Fluids -Electrolytes wnl -Diabetic diet #Prophylaxis -Heparin sq TID for DVT -Ranitidine 150 mg BID for GI Disposition -Full code -Will need to monitor creatinine for plateau. Expected d/c within 24-48 hours Dianne Jefferson [id number] Visit type - Emergency Visit Emergency Visit: Yes ED Registration Date: 08/17/18 Care time: The patient presented to the Emergency Department on the above date and was hospitalized for further evaluation of their emergent condition. - New Patient This patient is new to me today: Yes Date on this admission: 08/31/18 - Critical Care Critical Care patient: No
[2018-08-31] MEDS ORDERED: DEXTROSE 5%-WATER 100 ML IVPB ONE (16:10)
[2018-08-31] MEDS: CEFTRIAXONE 2 GM in DEXTROSE 5%-WATER 100 ML IVPB SCH (16:32)
--- NOTE | 2018-08-31 16:58 | PN ---
Progress Note (short form) - Note Progress Note: Renal follow up for HECTOR on CKD Pt seen and examined at the bedside report left foot swelling no acute sob, cp, abd pain, N/V/D no tremors making urine w/o joiner Vital Signs Temperature 98.0 F 08/31/18 15:05 Pulse Rate 79 08/31/18 15:05 Respiratory Rate 18 08/31/18 15:05 Blood Pressure 139/56 L 08/31/18 15:05 O2 Sat by Pulse Oximetry (%) 96 08/31/18 09:00 NAD awake and alert RRR, no M/R DEc BS, no rales trace LE edema CBC, BMP 08/31/18 05:30 08/31/18 05:30 Current Medications Acetaminophen (Tylenol -) 650 mg PO Q4H PRN PRN Reason: FEVER Last Admin: 08/29/18 11:22 Dose: 650 mg Amlodipine Besylate (Norvasc -) 5 mg PO DAILY [facility] Last Admin: 08/31/18 10:31 Dose: 5 mg Aspirin (Asa -) 81 mg PO DAILY [facility] Last Admin: 08/31/18 10:31 Dose: 81 mg Atorvastatin Calcium (Lipitor -) 80 mg PO HS [facility] Last Admin: 08/30/18 22:05 Dose: 80 mg Calcium Acetate (Phoslo -) 1,334 mg PO TIDCM [facility] Last Admin: 08/31/18 16:33 Dose: 1,334 mg Carvedilol (Coreg -) 25 mg PO BID [facility] Last Admin: 08/31/18 10:30 Dose: 25 mg Clopidogrel Bisulfate (Plavix -) 75 mg PO DAILY [facility] Last Admin: 08/31/18 10:31 Dose: 75 mg Epoetin Masood (Procrit -) 20,000 unit SQ MOWEFR [facility] Last Admin: 08/30/18 16:54 Dose: 20,000 unit Fluticasone Propionate (Flonase -) 1 spray NS BID [facility] Last Admin: 08/31/18 10:31 Dose: 1 spray Guaifenesin/Codeine Phosphate (Robitussin Ac -) 5 ml PO Q8H PRN PRN Reason: COUGH Last Admin: 08/30/18 22:04 Dose: 5 ml Heparin Sodium (Porcine) (Heparin -) 5,000 unit SQ TID [facility] Last Admin: 08/31/18 14:48 Dose: 5,000 unit Ceftriaxone Sodium 2 gm/ (Dextrose) 100 mls @ 200 mls/hr IVPB DAILY [facility]; Protocol Last Admin: 08/31/18 16:32 Dose: 200 mls/hr Insulin Aspart (Novolog Vial Sliding Scale -) 1 vial SQ HS [facility]; Protocol Last Admin: 08/30/18 22:06 Dose: 4 units Insulin Aspart (Novolog Vial Sliding Scale -) 1 vial SQ TIDAC [facility]; Protocol Last Admin: 08/31/18 12:31 Dose: 8 unit Insulin Detemir (Levemir Vial) 46 units SQ HS [facility] Last Admin: 08/30/18 22:05 Dose: 46 units Lactobacillus Acidophilus (Bacid -) 1 tab PO DAILY [facility] Last Admin: 08/31/18 10:30 Dose: 1 tab Mupirocin (Bactroban 2% Cream -) 1 applic TP BID [facility] Last Admin: 08/31/18 10:31 Dose: 1 applic Kvbee-7-[id number] Ethyl Esters (Lovaza -) 2 gm PO BID [facility] Last Admin: 08/31/18 10:31 Dose: 2 gm Ranitidine HCl (Zantac -) 150 mg PO BID [facility] Last Admin: 08/31/18 10:31 Dose: 150 mg Ranolazine (Ranexa -) 500 mg PO BID [facility] Last Admin: 08/31/18 10:30 Dose: 500 mg Sodium Chloride ([place] Nasal [place] -) 2 spray NS TID PRN PRN Reason: NASAL CONGESTION Last Admin: 08/28/18 12:04 Dose: 2 spray Torsemide (Demadex -) 20 mg PO DAILY [facility] Last Admin: 08/31/18 10:30 Dose: 20 mg 57 year old gentleman with hx of 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 #HECTOR on CKD now likely due to volume depletion in setting of diuretics + hemodyanic changes requiring urgent HD for uremic symptoms #Sepsis syndrome from soft tissue infection + osteomylitis #NSTEMI #Acute on chronic anemia #Hx of Hypertension #Lactic acidosis now resolved #Hypocalcemia/Hyperphosphtatemia #Volume overload requiring IV diuresis now resolved Renal function stable, BUN/Cr slightly higher but still lower the the values at the beginning of this admission. Continue Torsemide 20mg Daily, can give additional Lasix as needed if pt becomes acutely short of breath CXR today shows stable lung appearance Continue Abx for osteomylitis unilateral leg swelling likely due to position and underlying infection, doppler done earlier was negative for DVT and pt is on SC Heparin Continue to trend renal function daily no acute indication for additional dialysis. Jose Manuel Pendleton DO
[2018-08-31] MEDS: ATORVASTATIN CA 80 MG TABLET (FP) PO SCH (21:47)
[2018-08-31] MEDS: INSULIN (LEVEMIR) 100 UNITS/ML UNITS SQ SCH (21:51)
[2018-08-31] MEDS: guaiFENesin/CODEINE 5 ML UNIT-DOSE CUPS PO PRN (22:11)
[2018-09-01] MEDS: HEPARIN NA (PORCINE) 5,000 UNITS/ML 1ML VIAL SQ SCH ×3 (05:45→21:30)
[2018-09-01 06:16] LABS: BASO % 0.8 % (0-2.0); EOS % 2.1 % (0-4.5); HEMATOCRIT 24.6 % (35.4-49); HEMOGLOBIN 8.4 GM/dL (11.7-16.9); LYMPH % 9.3 % (8-40); MCH 29.9 pg (25.7-33.7); MCHC 34.1 g/dl (32.0-35.9); MEAN CELL VOLUME 87.8 fl (80-96); MEAN PLT VOLUME 6.7 fl (7.5-11.1); MONO % 9.4 % (3.8-10.2); NEUT % 78.4 % (42.8-82.8); PLATELET COUNT 339 K/MM3 (134-434); RDW 16.2 % (11.9-15.9); WHITE BLOOD COUNT 5.4 K/mm3 (4.0-10.0)
[2018-09-01 06:31] LABS: ANION GAP 9 MMOL/L (8-16); BLOOD UREA NITROGEN 84 mg/dL (7-18); CALCIUM 8.3 mg/dL (8.5-10.1); CHLORIDE 102 mmol/L (98-107); CO2 27 mmol/L (21-32); GLUCOSE,RANDOM 206 mg/dL (74-106); MAGNESIUM 1.6 mg/dL (1.8-2.4); POTASSIUM 3.8 mmol/L (3.5-5.1); SODIUM 138 mmol/L (136-145)
[2018-09-01] MEDS: INSULIN SLIDING SCALE (NOVOLOG) 1 VIAL SQ SCH ×4 (07:52→21:33)
--- NOTE | 2018-09-01 08:19 | PN ---
Physical Exam: SUBJECTIVE: Patient seen and examined by me at bedside. Reports left leg pain and swelling is worsening and unable to fall asleep from it. Otherwise, denies any shortness of breath and was able to lay down flat all night Patient denies chest pain, palpitations, fevers, chills, nausea, vomiting, abdominal pain, headaches, acute vision changes OBJECTIVE: Vital Signs Period Temp Pulse Resp BP Sys/Gallo Pulse Ox Last 24 Hr 97.5 F-98.2 F 71-81 18-20 114-143/53-73 96-97 GENERAL: The patient is awake, alert, and fully oriented, in no acute distress. EYES: Sclera anicteric, conjunctiva clear. No ptosis. ENT: Moist mucous membranes. LUNGS: Breath sounds equal, clear to auscultation bilaterally, no wheezes, no crackles, no accessory muscle use. on 4L 02 HEART: Regular rate and rhythm, normal s1 and s2 (+) LOAN 2/6 ABDOMEN: Soft, Obese, nontender, nondistended, normoactive bowel sounds. EXTREMITIES: 1+ Pitting edema bilaterally with bilateral leg swelling L>R NEUROLOGICAL: (-) [place] Laboratory Results 09/01/18 05:30 09/01/18 05:30 09/01/18 05:30 Phosphorus 4.0 Magnesium 1.6 L Active Medications Generic Name Dose Route Start Last Admin Trade Name Freq PRN Reason Stop Dose Admin Acetaminophen 650 mg 08/24/18 20:52 08/29/18 11:22 Tylenol - PO 650 mg Q4H PRN Administration FEVER Amlodipine Besylate 5 mg 08/29/18 10:00 08/31/18 10:31 Norvasc - PO 5 mg DAILY CRIS Administration Aspirin 81 mg 08/25/18 10:00 08/31/18 10:31 Asa - PO 81 mg DAILY CRIS Administration Atorvastatin Calcium 80 mg 08/24/18 22:00 08/31/18 21:47 Lipitor - PO 80 mg HS CRIS Administration Calcium Acetate 1,334 mg 08/24/18 17:30 08/31/18 16:33 Phoslo - PO 1,334 mg TIDCM CRIS Administration Carvedilol 25 mg 08/24/18 22:00 08/31/18 21:46 Coreg - PO 25 mg BID CRIS Administration Clopidogrel Bisulfate 75 mg 08/25/18 10:00 08/31/18 10:31 Plavix - PO 75 mg DAILY [facility]IS Administration Epoetin Masood 20,000 unit 08/30/18 12:30 08/30/18 16:54 Procrit - SQ 20,000 unit MOWEFR [facility]IS Administration Fluticasone Propionate 1 spray 08/24/18 22:00 08/31/18 21:46 Flonase - NS Not Given BID CRIS Guaifenesin/Codeine Phosphate 5 ml 08/28/18 19:00 08/31/18 22:11 Robitussin Ac - PO 5 ml Q8H PRN Administration COUGH Heparin Sodium (Porcine) 5,000 unit 08/24/18 22:00 09/01/18 05:45 Heparin - SQ 5,000 unit TID CRIS Administration Ceftriaxone Sodium 2 gm/ 100 mls @ 200 mls/hr 08/31/18 16:00 08/31/18 16:32 Dextrose IVPB 200 mls/hr DAILY [facility]IS Administration Protocol Insulin Aspart 1 vial 08/24/18 22:00 08/31/18 21:54 Novolog Vial Sliding Scale - SQ Not Given HS [facility] Protocol Insulin Aspart 1 vial 08/28/18 11:46 09/01/18 07:52 Novolog Vial Sliding Scale - SQ 20 unit TIDAC CRIS Administration Protocol Insulin Detemir 46 units 08/28/18 22:00 08/31/18 21:51 Levemir Vial SQ 10 units HS CRIS Administration Lactobacillus Acidophilus 1 tab 08/25/18 10:00 08/31/18 10:30 Bacid - PO 1 tab DAILY [facility] Administration Mupirocin 1 applic 08/24/18 22:00 08/31/18 21:48 Bactroban 2% Cream - TP 1 applic BID CRIS Administration Jxqse-9-Vqne Ethyl Esters 2 gm 08/24/18 22:00 08/31/18 21:47 Lovaza - PO 2 gm BID CRIS Administration Ranitidine HCl 150 mg 08/24/18 22:00 08/31/18 21:48 Zantac - PO 150 mg BID CRIS Administration Ranolazine 500 mg 08/24/18 22:00 08/31/18 21:48 Ranexa - PO 500 mg BID CRIS Administration Sodium Chloride 2 spray 08/24/18 20:52 08/28/18 12:04 [place] Nasal [place] - NS 2 spray TID PRN Administration NASAL CONGESTION Torsemide 20 mg 08/30/18 13:30 08/31/18 10:30 Demadex - PO 20 mg DAILY [facility]IS Administration IMAGES: 08/23/18 bone scan: Increased blood flow, blood pool an delayed activity in the region of the left second toe suspicious for osteomyelitis 08/24/18 CXR: Shallow inspiration, cardiomegaly, no evidence of pneumonia, CHF 08/25/17 CXR: No evidence of vascular congestive changes, pulmonary infiltrates, pneumothorax or pleural effusion. ASSESSMENT/PLAN: Patient is a 57 year old male with significant PMHx IDDM (on insulin pump), HTN , HLD, CAD s/p CABG and s/p AICD, CHF, Aortic stenosis, CKD, p/w fever, rigors, malaise x 1 day, admitted to ICU for NSTEMI and sepsis. #Uremia requiring urgent Dialysis -S/P 3 sessions of emergent HD. -No acute indication for ASSISTANT HAIRSTYLIST at this time -Will need to trend renal function off dialysis. Has been stable the last three days but slightly elevated. Nephrology is comfortable with Creatinine remaining in low 4.0's -WilL continue Torsemide 20mg daily and increase to 40mg in the morning if tolerates. -Weight remains stable -Continue renal diet -Still making urine with 1700cc yesterday. In the last 12 hours had urine output of 600cc #Left second digit -suspicion for osteomyelitis -Continue IV Ceftriaxone 2gm daily (Day #15). Will need 6 week course, as per ID #Volume overload likely from acute on chronic systolic dysfunction and CKD- improving -Continue oral torsemide 20mg Daily for volume management and will increase to 40mg tomorrow if tolerates -Would not resume ELROY/ARB due to low eGFR, as per Nephro recommendations -Continue to monitor Daily weights and urine output. Weight remains stable 128.423kg (yesterday 128.73kg) -PT and respiratory therapy eval for possible home 02 #Left Lower Extremity Pain and Swelling -Repeat Duplex. #NSTEMI: -Trops peaked -Continue Statin 80 mg HS -Continue Aspirin 81 mg/Plavix -Continue Ranexa -Cardiology on board. #HECTOR on CKD likely secondary to hypoperfusion from Sepsis with overdiuresis on entresto -Continue Phoslo -Avoid nephrotoxic drugs -Avoid Entresto -No urgent ASSISTANT HAIRSTYLIST -Started on ProCrit for anemia TID -Will need to monitor addition 24-48 hours for creatinine to Plateau -Renal on board # HTN-controlled -Continue Coreg 25 mg PO BID ans Norvasc 5mg daily #IDDMII -Continue Levemir 40 Units. -ISS -BGM -Watch for hypoglycemic episodes #FEN -No Fluids -Hypomagnesemia. Replete and repeat -Diabetic diet #Prophylaxis -Heparin sq TID for DVT -Ranitidine 150 mg BID for GI #Disposition -Full code -Will need to monitor creatinine for plateau. Expected d/c within 24-48 hours Dianne Jefferson MD-[id number] Visit type - Emergency Visit Emergency Visit: Yes ED Registration Date: 08/17/18 Care time: The patient presented to the Emergency Department on the above date and was hospitalized for further evaluation of their emergent condition. - New Patient This patient is new to me today: No - Critical Care Critical Care patient: No
[2018-09-01] MEDS ORDERED: MAGNESIUM SULF 50% (8.12 MEQ/2 ML-1 GM VIAL) IVPB ONE (08:30)
[2018-09-01] MEDS ORDERED: DEXTROSE 5%-WATER 100 ML IVPB ONE (09:55)
--- NOTE | 2018-09-01 09:59 | PN ---
Progress Note, Physician History of Present Illness: Denies orthopnea and dyspnea, diuretics resumed. Asterixis and tremors resolved post HD for uremia symptoms. Reports left leg discomfort. - Current Medication List Current Medications: Active Medications Acetaminophen (Tylenol -) 650 mg PO Q4H PRN PRN Reason: FEVER Last Admin: 08/29/18 11:22 Dose: 650 mg Amlodipine Besylate (Norvasc -) 5 mg PO DAILY [facility] Last Admin: 08/31/18 10:31 Dose: 5 mg Aspirin (Asa -) 81 mg PO DAILY [facility] Last Admin: 08/31/18 10:31 Dose: 81 mg Atorvastatin Calcium (Lipitor -) 80 mg PO HS [facility] Last Admin: 08/31/18 21:47 Dose: 80 mg Calcium Acetate (Phoslo -) 1,334 mg PO TIDCM [facility] Last Admin: 08/31/18 16:33 Dose: 1,334 mg Carvedilol (Coreg -) 25 mg PO BID [facility] Last Admin: 08/31/18 21:46 Dose: 25 mg Clopidogrel Bisulfate (Plavix -) 75 mg PO DAILY [facility] Last Admin: 08/31/18 10:31 Dose: 75 mg Epoetin Masood (Procrit -) 20,000 unit SQ MOWEFR [facility] Last Admin: 08/30/18 16:54 Dose: 20,000 unit Fluticasone Propionate (Flonase -) 1 spray NS BID [facility] Last Admin: 08/31/18 21:46 Dose: Not Given Guaifenesin/Codeine Phosphate (Robitussin Ac -) 5 ml PO Q8H PRN PRN Reason: COUGH Last Admin: 08/31/18 22:11 Dose: 5 ml Heparin Sodium (Porcine) (Heparin -) 5,000 unit SQ TID [facility] Last Admin: 09/01/18 05:45 Dose: 5,000 unit Ceftriaxone Sodium 2 gm/ (Dextrose) 100 mls @ 200 mls/hr IVPB DAILY [facility]; Protocol Last Admin: 08/31/18 16:32 Dose: 200 mls/hr Insulin Aspart (Novolog Vial Sliding Scale -) 1 vial SQ HS [facility]; Protocol Last Admin: 08/31/18 21:54 Dose: Not Given Insulin Aspart (Novolog Vial Sliding Scale -) 1 vial SQ TIDAC [facility]; Protocol Last Admin: 09/01/18 07:52 Dose: 20 unit Insulin Detemir (Levemir Vial) 46 units SQ HS [facility] Last Admin: 08/31/18 21:51 Dose: 10 units Lactobacillus Acidophilus (Bacid -) 1 tab PO DAILY [facility] Last Admin: 08/31/18 10:30 Dose: 1 tab Mupirocin (Bactroban 2% Cream -) 1 applic TP BID [facility] Last Admin: 08/31/18 21:48 Dose: 1 applic [id number] Ethyl Esters (Lovaza -) 2 gm PO BID [facility] Last Admin: 08/31/18 21:47 Dose: 2 gm Ranitidine HCl (Zantac -) 150 mg PO BID [facility] Last Admin: 08/31/18 21:48 Dose: 150 mg Ranolazine (Ranexa -) 500 mg PO BID [facility] Last Admin: 08/31/18 21:48 Dose: 500 mg Sodium Chloride ([place] Nasal [place] -) 2 spray NS TID PRN PRN Reason: NASAL CONGESTION Last Admin: 08/28/18 12:04 Dose: 2 spray Torsemide (Demadex -) 20 mg PO DAILY [facility] Last Admin: 08/31/18 10:30 Dose: 20 mg - Objective Vital Signs: Vital Signs Temperature 97.7 F 09/01/18 06:00 Pulse Rate 72 09/01/18 06:00 Respiratory Rate 20 09/01/18 06:00 Blood Pressure 132/73 09/01/18 06:00 O2 Sat by Pulse Oximetry (%) 97 08/31/18 21:00 Constitutional: Yes: No Distress, Calm Neck: Yes: Supple Cardiovascular: Yes: Regular Rate and Rhythm Respiratory: Yes: Regular, Diminished, On Nasal O2 Gastrointestinal: Yes: Normal Bowel Sounds, Soft, Abdomen, Obese Edema: Yes Edema: LLE: Trace Labs: CBC, BMP 09/01/18 05:30 09/01/18 05:30 INR, PTT INR 1.23 (0.83-1.09) H 08/28/18 06:30 - ....Imaging Chest X-ray: Report Reviewed (Stable changes) EKG: Report Reviewed (Tele:) Problem List - Problems (1) NSTEMI (non-ST elevated myocardial infarction) Code(s): I21.4 - NON-ST ELEVATION (NSTEMI) MYOCARDIAL INFARCTION (2) Sepsis Code(s): A41.9 - SEPSIS, UNSPECIFIED ORGANISM Qualifiers: Sepsis type: sepsis due to unspecified organism Qualified Code(s): A41.9 - Sepsis, unspecified organism (3) Acute on chronic kidney failure Code(s): N17.9 - ACUTE KIDNEY FAILURE, UNSPECIFIED; N18.9 - CHRONIC KIDNEY DISEASE, UNSPECIFIED Qualifiers: Acute renal failure type: unspecified Chronic kidney disease stage: unspecified stage Qualified Code(s): N17.9 - Acute kidney failure, unspecified ; N18.9 - Chronic kidney disease, unspecified (4) Acute on chronic systolic (congestive) heart failure Code(s): I50.23 - ACUTE ON CHRONIC SYSTOLIC (CONGESTIVE) HEART FAILURE (5) Dyspnea due to congestive heart failure Code(s): I50.9 - HEART FAILURE, UNSPECIFIED (6) Elevated troponin Code(s): R79.89 - OTHER SPECIFIED ABNORMAL FINDINGS OF BLOOD CHEMISTRY (7) HLD (hyperlipidemia) Code(s): E78.5 - HYPERLIPIDEMIA, UNSPECIFIED Qualifiers: Hyperlipidemia type: pure hypercholesterolemia Qualified Code(s): E78.00 - Pure hypercholesterolemia, unspecified (8) HTN (hypertension) Code(s): I10 - ESSENTIAL (PRIMARY) HYPERTENSION Qualifiers: Hypertension type: essential hypertension Qualified Code(s): I10 - Essential (primary) hypertension (9) History of coronary artery stent placement Code(s): Z95.5 - PRESENCE OF CORONARY ANGIOPLASTY IMPLANT AND GRAFT (10) Hx of CABG Code(s): Z95.1 - PRESENCE OF AORTOCORONARY BYPASS GRAFT (11) ICD (implantable cardioverter-defibrillator) in place Code(s): Z95.810 - PRESENCE OF AUTOMATIC (IMPLANTABLE) CARDIAC DEFIBRILLATOR (12) Systolic heart failure Code(s): I50.20 - UNSPECIFIED SYSTOLIC (CONGESTIVE) HEART FAILURE Qualifiers: Heart failure chronicity: acute on chronic Qualified Code(s): I50.23 - Acute on chronic systolic (congestive) heart failure (13) Sleep apnea Code(s): G47.30 - SLEEP APNEA, UNSPECIFIED Qualifiers: Sleep apnea type: obstructive Qualified Code(s): G47.33 - Obstructive sleep apnea (adult) (pediatric) (14) Uremia Code(s): N19 - UNSPECIFIED KIDNEY FAILURE Assessment/Plan 08/18/2018 Echo: Poor windows 1. Acute on chronic class II-III NYHA classification LV systolic failure 2. CAD post VT/CABG, PCI/stent, demand ischemic injury history of an abnormal MPI study angina pectoris, plan for conservative medical management 3. Aortic stenosis, mild 4. HTN 5. IDDM 6. Hypercholesterolemia 7. Post prophylactic ICD implant, history of NSVT 8. Acute on CKD with hyperkalemia and uremia due to volume depletion in setting of diuretics + hemodyanic changes post HD via femoral shiley since d/charles 9. Anemia post transfusion 10. Gout 11. Obstructive sleep apnea 12. Left leg cellulitis, 2nd toe osteomyelitis PLAN: 1. Post HD for uremia, continue Demadex 20 qd with monitoring diuretic response renal function and electrolytes 2. Continue Coreg 25 bid 3. Would not resume Entresto 26/26 bid given low eGFR per renal 4. Continue Ranexa 500 bid 5. Continue Norvasc 5 qd 6. Continue Lipitor 80 qhs and Lovaza 2 bid 7. Continue Plavix 75 qd and ASA 81 qd with caution in view of the above noted anemia, transfuse as needed to maintain Hg equal or > 8.0 8. Complete extended antibiotic course as per ID 9. As outlined in the prior note plan to pursue medical management and therapy optimization and deferring any invasive strategy in view of the above noted CKD with acute exacerbation 10. DVT prophylaxis 11. Eventual RUE AVF, epogen for anemia
[2018-09-01] MEDS: OMEGA-3 ACID ETHYL ESTERS (FATTY-ACIDS) 1 GM CAPSULE (FP) PO SCH ×2 (10:00→21:32)
[2018-09-01] MEDS: CALCIUM ACETATE 667 MG CAPSULE (FP) PO SCH ×3 (10:00→18:03)
[2018-09-01] MEDS: TORSEMIDE 20 MG TABLET (FP) PO SCH (10:00)
[2018-09-01] MEDS: amLODIPine BESYLATE 5 MG TABLET (FP) PO SCH (10:00)
[2018-09-01] MEDS: CARVEDILOL 25 MG TABLET (FP) PO SCH ×2 (10:00→21:29)
[2018-09-01] MEDS: RANOLAZINE E.R. 500 MG TABLET (FP) PO SCH ×2 (10:00→21:32)
[2018-09-01] MEDS: LACTOBACILLUS ACIDOPHILUS 1 TABLET PO SCH (10:00)
[2018-09-01] MEDS: RANITIDINE HCL 150 MG TABLET (FP) PO SCH ×2 (10:00→21:32)
[2018-09-01] MEDS: CLOPIDOGREL BISULFATE 75 MG TABLET (FP) PO SCH (10:00)
[2018-09-01] MEDS: ASPIRIN 81 MG CHEWABLE TABLETS PO SCH (10:00)
[2018-09-01] MEDS: CEFTRIAXONE 2 GM in DEXTROSE 5%-WATER 100 ML IVPB SCH (10:01)
[2018-09-01] MEDS: MUPIROCIN CA 2% TOPICAL CREAM 15 GM TUBE TP SCH ×2 (10:05→21:29)
[2018-09-01] MEDS: FLUTICASONE PROP 0.05% 16 GM NASAL SPRAY NS SCH ×2 (10:06→21:29)
[2018-09-01] MEDS: guaiFENesin/CODEINE 5 ML UNIT-DOSE CUPS PO PRN ×2 (10:44→18:10)
--- NOTE | 2018-09-01 11:00 | PN ---
Progress Note, Physician History of Present Illness: pulmonary alert,oob-chair,feeling better,less sob - Current Medication List Current Medications: Active Medications Acetaminophen (Tylenol -) 650 mg PO Q4H PRN PRN Reason: FEVER Last Admin: 08/29/18 11:22 Dose: 650 mg Amlodipine Besylate (Norvasc -) 5 mg PO DAILY [facility] Last Admin: 09/01/18 10:00 Dose: 5 mg Aspirin (Asa -) 81 mg PO DAILY [facility] Last Admin: 09/01/18 10:00 Dose: 81 mg Atorvastatin Calcium (Lipitor -) 80 mg PO HS [facility] Last Admin: 08/31/18 21:47 Dose: 80 mg Calcium Acetate (Phoslo -) 1,334 mg PO TIDCM [facility] Last Admin: 09/01/18 10:00 Dose: 1,334 mg Carvedilol (Coreg -) 25 mg PO BID [facility] Last Admin: 09/01/18 10:00 Dose: 25 mg Clopidogrel Bisulfate (Plavix -) 75 mg PO DAILY [facility] Last Admin: 09/01/18 10:00 Dose: 75 mg Epoetin Masood (Procrit -) 20,000 unit SQ MOWEFR [facility] Last Admin: 08/30/18 16:54 Dose: 20,000 unit Fluticasone Propionate (Flonase -) 1 spray NS BID [facility] Last Admin: 09/01/18 10:06 Dose: Not Given Guaifenesin/Codeine Phosphate (Robitussin Ac -) 5 ml PO Q8H PRN PRN Reason: COUGH Last Admin: 09/01/18 10:44 Dose: 5 ml Heparin Sodium (Porcine) (Heparin -) 5,000 unit SQ TID [facility] Last Admin: 09/01/18 05:45 Dose: 5,000 unit Ceftriaxone Sodium 2 gm/ (Dextrose) 100 mls @ 200 mls/hr IVPB DAILY [facility]; Protocol Last Admin: 09/01/18 10:01 Dose: 200 mls/hr Insulin Aspart (Novolog Vial Sliding Scale -) [address] [facility]; Protocol Last Admin: 08/31/18 21:54 Dose: Not Given Insulin Aspart (Novolog Vial Sliding Scale -) 1 vial SQ TIDAC [facility]; Protocol Last Admin: 09/01/18 07:52 Dose: 20 unit Insulin Detemir (Levemir Vial) [address] [facility] Last Admin: 08/31/18 21:51 Dose: 10 units Lactobacillus Acidophilus (Bacid -) 1 tab PO DAILY [facility] Last Admin: 09/01/18 10:00 Dose: 1 tab Mupirocin (Bactroban 2% Cream -) 1 applic TP BID [facility] Last Admin: 09/01/18 10:05 Dose: 1 applic [id number] Ethyl Esters (Lovaza -) 2 gm PO BID [facility] Last Admin: 09/01/18 10:00 Dose: 2 gm Ranitidine HCl (Zantac -) 150 mg PO BID [facility] Last Admin: 09/01/18 10:00 Dose: 150 mg Ranolazine (Ranexa -) 500 mg PO BID [facility] Last Admin: 09/01/18 10:00 Dose: 500 mg Sodium Chloride ([place] Nasal [place] -) 2 spray NS TID PRN PRN Reason: NASAL CONGESTION Last Admin: 08/28/18 12:04 Dose: 2 spray Torsemide (Demadex -) 20 mg PO DAILY [facility] Last Admin: 09/01/18 10:00 Dose: 20 mg - Objective Vital Signs: Vital Signs Temperature 97.7 F 09/01/18 06:00 Pulse Rate 72 09/01/18 06:00 Respiratory Rate 20 09/01/18 06:00 Blood Pressure 132/73 09/01/18 06:00 O2 Sat by Pulse Oximetry (%) 97 08/31/18 21:00 Constitutional: Yes: Well Nourished, Calm, Obese Eyes: Yes: WNL HENT: Yes: WNL Neck: Yes: WNL Cardiovascular: Yes: Regular Rate and Rhythm, S1, S2 Respiratory: Yes: Rales (bibasiar rales) Gastrointestinal: Yes: Normal Bowel Sounds, Soft Extremities: Yes: WNL Edema: Yes Labs: CBC, BMP 09/01/18 05:30 09/01/18 05:30 INR, PTT INR 1.23 (0.83-1.09) H 08/28/18 06:30 - ....Imaging Chest X-ray: Report Reviewed, Image Reviewed Problem List - Problems (1) NSTEMI (non-ST elevated myocardial infarction) Code(s): I21.4 - NON-ST ELEVATION (NSTEMI) MYOCARDIAL INFARCTION (2) Sepsis Code(s): A41.9 - SEPSIS, UNSPECIFIED ORGANISM Qualifiers: Sepsis type: sepsis due to unspecified organism Qualified Code(s): A41.9 - Sepsis, unspecified organism (3) Troponin I above reference range Code(s): R74.8 - ABNORMAL LEVELS OF OTHER SERUM ENZYMES (4) Acute on chronic kidney failure Code(s): N17.9 - ACUTE KIDNEY FAILURE, UNSPECIFIED; N18.9 - CHRONIC KIDNEY DISEASE, UNSPECIFIED Qualifiers: Acute renal failure type: unspecified Chronic kidney disease stage: unspecified stage Qualified Code(s): N17.9 - Acute kidney failure, unspecified ; N18.9 - Chronic kidney disease, unspecified (5) Acute on chronic systolic (congestive) heart failure Code(s): I50.23 - ACUTE ON CHRONIC SYSTOLIC (CONGESTIVE) HEART FAILURE (6) Anemia Code(s): D64.9 - ANEMIA, UNSPECIFIED Qualifiers: Anemia type: unspecified type Qualified Code(s): D64.9 - Anemia, unspecified (7) Aortic valve stenosis Code(s): I35.0 - NONRHEUMATIC AORTIC (VALVE) STENOSIS Qualifiers: Cardiac valve disease etiology: nonrheumatic Qualified Code(s): I35.0 - Nonrheumatic aortic (valve) stenosis (8) CAD (coronary artery disease) Code(s): I25.10 - ATHSCL HEART DISEASE OF [place] CORONARY ARTERY W/O ANG PCTRS Qualifiers: Coronary Disease-Associated Artery/Lesion type: [place] artery [place] vs. transplanted heart: [place] heart Associated angina: without angina Qualified Code(s): I25.10 - Atherosclerotic heart disease of [place] coronary artery without angina pectoris (9) CKD stage 4 due to type 2 diabetes mellitus Code(s): E11.22 - TYPE 2 DIABETES MELLITUS W DIABETIC CHRONIC KIDNEY DISEASE; N18.4 - CHRONIC KIDNEY DISEASE, STAGE 4 (SEVERE) (10) History of coronary artery stent placement Code(s): Z95.5 - PRESENCE OF CORONARY ANGIOPLASTY IMPLANT AND GRAFT (11) Hx of CABG Code(s): Z95.1 - PRESENCE OF AORTOCORONARY BYPASS GRAFT (12) ICD (implantable cardioverter-defibrillator) in place Code(s): Z95.810 - PRESENCE OF AUTOMATIC (IMPLANTABLE) CARDIAC DEFIBRILLATOR Assessment/Plan ASSESSMENT AND PLAN: Acute on Chronic Systolic Heart Failure improving Acute NSTEMI CAD s/p CABG Acute on Chronic Renal Failure HTN DM Cellulitis Anemia - diuretics - daily weights - ASA, plavix - beta sandee, statin - O2 to keep SpO2 >90% - monitor lytes,renal function,h+h - cough meds DR PRIETO
[2018-09-01 11:25] LABS: ACANTHOCYTES 0; ANISOCYTOSIS 0; HELMET CELLS 0; HOWELL-JOLLY BODIES 0; MACROCYTOSIS 0; OVALOCYTE 0; PLATELET ESTIMATE NORMAL; ROULEAU 0; SICKELED CELLS 0; TARGET CELLS 0; TEAR DROP CELLS 0; TOXIC GRANULATION 0
--- NOTE | 2018-09-01 11:44 | PN ---
Teaching Attending Note Name of Resident: Dianne Jefferson ATTENDING PHYSICIAN STATEMENT I saw and evaluated the patient. I reviewed the resident's note and discussed the case with the resident. I agree with the resident's findings and plan as documented with exceptions below. SUBJECTIVE: Patient seen and examined. Breathing improved, residual cough. Left leg swelling , denies any left toe pain. Overall feels well. OBJECTIVE: Vital Signs Period Temp Pulse Resp BP Sys/Gallo Pulse Ox Last 24 Hr 97.5 F-98.0 F 71-81 18-20 114-143/53-76 96-97 Intake & Output 08/29/18 08/30/18 08/31/18 09/01/18 23:59 23:59 23:59 23:59 Intake Total 350 50 390 210 Output Total 1000 1250 1700 600 Balance -650 -1200 -1310 -390 Weight 282 lb 6.4 oz 283 lb 12.8 oz 283 lb 2 oz General: sitting in chair, no acute distress Neck: soft, supple, no JVD visualized Chest: CTAB, no rales or wheezing, good air entry Abdomen:soft, obese, NT Extremities: left foot lower 1/rd leg edema, positive DP pulses, Left 2nd toe swelling/erythema improved from last week, scab at the tip, non tender, no active discharge Home Medications Medication Instructions Recorded Ranolazine [Ranexa] 500 mg PO BID 07/13/13 Ranitidine [Zantac -] 150 mg PO BID 06/19/17 Clonidine Patch [Catapres Tts 0.3 mg TD WEEKLY 06/21/17 Patch -] Aspirin [ASA -] 81 mg PO DAILY 09/28/17 Nitroglycerin [Nitrostat] 0.4 mg SL PRN PRN 09/28/17 Torsemide 1 tab PO DAILY 09/29/17 Carvedilol [Coreg -] 25 mg PO BID #60 tablet 09/30/17 Atorvastatin Ca [Lipitor] 80 mg PO HS 06/01/18 Ergocalciferol (Vitamin D2) 50,000 unit PO WEEKLY 06/01/18 [Vitamin D2] Insulin Lispro [Humalog] 0 unit SQ ASDIR PRN 06/01/18 [place]-3 Fatty Acids [[place]-3] 1,000 mg PO BID 06/01/18 Sacubitril/Valsartan [Entresto 49 1 each PO BID 06/01/18 mg-51 mg Tablet] Clopidogrel Bisulfate [Plavix -] 75 mg PO DAILY 30 Days #0 tab 06/08/18 Active Medications Acetaminophen (Tylenol -) 650 mg PO Q4H PRN PRN Reason: FEVER Last Admin: 08/29/18 11:22 Dose: 650 mg Amlodipine Besylate (Norvasc -) 5 mg PO DAILY [facility] Last Admin: 09/01/18 10:00 Dose: 5 mg Aspirin (Asa -) 81 mg PO DAILY [facility] Last Admin: 09/01/18 10:00 Dose: 81 mg Atorvastatin Calcium (Lipitor -) 80 mg PO HS [facility] Last Admin: 08/31/18 21:47 Dose: 80 mg Calcium Acetate (Phoslo -) 1,334 mg PO TIDCM [facility] Last Admin: 09/01/18 10:00 Dose: 1,334 mg Carvedilol (Coreg -) 25 mg PO BID [facility] Last Admin: 09/01/18 10:00 Dose: 25 mg Clopidogrel Bisulfate (Plavix -) 75 mg PO DAILY [facility] Last Admin: 09/01/18 10:00 Dose: 75 mg Epoetin Masood (Procrit -) 20,000 unit SQ MOWEFR [facility] Last Admin: 08/30/18 16:54 Dose: 20,000 unit Fluticasone Propionate (Flonase -) 1 spray NS BID [facility] Last Admin: 09/01/18 10:06 Dose: Not Given Guaifenesin/Codeine Phosphate (Robitussin Ac -) 5 ml PO Q8H PRN PRN Reason: COUGH Last Admin: 09/01/18 10:44 Dose: 5 ml Heparin Sodium (Porcine) (Heparin -) 5,000 unit SQ TID [facility] Last Admin: 09/01/18 05:45 Dose: 5,000 unit Ceftriaxone Sodium 2 gm/ (Dextrose) 100 mls @ 200 mls/hr IVPB DAILY [facility]; Protocol Last Admin: 09/01/18 10:01 Dose: 200 mls/hr Insulin Aspart (Novolog Vial Sliding Scale -) 1 vial SQ HS [facility]; Protocol Last Admin: 08/31/18 21:54 Dose: Not Given Insulin Aspart (Novolog Vial Sliding Scale -) 1 vial SQ TIDAC [facility]; Protocol Last Admin: 09/01/18 07:52 Dose: 20 unit Insulin Detemir (Levemir Vial) 46 units SQ HS [facility] Last Admin: 08/31/18 21:51 Dose: 10 units Lactobacillus Acidophilus (Bacid -) 1 tab PO DAILY [facility] Last Admin: 09/01/18 10:00 Dose: 1 tab Mupirocin (Bactroban 2% Cream -) 1 applic TP BID [facility] Last Admin: 09/01/18 10:05 Dose: 1 applic [id number] Ethyl Esters (Lovaza -) 2 gm PO BID [facility] Last Admin: 09/01/18 10:00 Dose: 2 gm Ranitidine HCl (Zantac -) 150 mg PO BID [facility] Last Admin: 09/01/18 10:00 Dose: 150 mg Ranolazine (Ranexa -) 500 mg PO BID [facility] Last Admin: 09/01/18 10:00 Dose: 500 mg Sodium Chloride ([place] Nasal [place] -) 2 spray NS TID PRN PRN Reason: NASAL CONGESTION Last Admin: 08/28/18 12:04 Dose: 2 spray Torsemide (Demadex -) 20 mg PO DAILY [facility] Last Admin: 09/01/18 10:00 Dose: 20 mg Laboratory Results - last 24 hr 08/31/18 09/01/18 09/01/18 11:31 05:30 05:30 WBC 5.4 RBC 2.80 L Hgb 8.4 L Hct 24.6 L MCV 87.8 MCH 29.9 MCHC 34.1 RDW 16.2 H Plt Count 339 MPV 6.7 L Absolute Neuts (auto) 4.3 Neutrophils % 78.4 Lymphocytes % 9.3 Monocytes % 9.4 Eosinophils % 2.1 Basophils % 0.8 Nucleated RBC % 0 Sodium 138 Potassium 3.8 Chloride 102 Carbon Dioxide 27 Anion Gap 9 BUN 84 H Creatinine 4.0 H Creat Clearance w eGFR 15.61 POC Glucometer 162 Random Glucose 206 H Calcium 8.3 L Phosphorus 4.0 Magnesium 1.6 L Microbiology 08/17/18 14:10 Blood - Peripheral Venous Blood Culture - Final NO GROWTH AFTER 5 DAYS INCUBATION 08/17/18 14:25 Blood - Peripheral Venous Blood Culture - Final NO GROWTH AFTER 5 DAYS INCUBATION 08/22/18 07:00 Stool Clostridium difficile Antigen (YEFRI) - Final 08/22/18 07:00 Stool Clostridium difficile Toxin Assay - Final 08/17/18 16:13 Urine - Urine Clean Catch Urine Culture - Final NO GROWTH OBTAINED ASSESSMENT AND PLAN: 57 yom with PMHx of ASHD, [place], S/P CABG, PCI/stent, ICD implant(2007), HTN, hypercholesterolemia, IDDM on insulin pump, CKD stage IV, gout and 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 -LLE cellulitis/Left 2nd toe osteomyelitis -Septic shock, from above, resolved -Acute systolic heart failure exacerbation in the setting fluid resuscitation and [place], s/p lasix/dobutamine drip -HECTOR on CKD stage IV with hyperkalemia and uremia (Asterexis/Tremors) in the setting aggressive diuresis/hemodynamic changes from septic shock, s/p few sessions of HD -Elevated troponin, NSTEMI vs Demand type II in the setting of above -Acute hypoxemic respiratory failure, resolved -NSVT/PVCs/Ventricular trigeminy, improved after coreg -Thrombocytopenia, likely from sepsis, resolved -CAD s/p CABG, ICD -HTN -HLD -IDDM on insulin pump -Epistaxis on high flow oxygen/heparin drip, resolved -Anemia, multifactorial from above, s/p transfusion Plan: Clinically improved. Renal function stable. Discussed with Dr. Pendleton, continue torsemide 20 mg daily, transition to 40 mg in AM if tolerated well, no further HD plans for now. LLE swelling worse from last week (?from withholding diuresis), repeat LLE duplex. Ceftriaxone. Discuss with Dr. Burgos if further surgical plans. Discuss with ID for abx duration, PICC line and anticipate d/c home with abx +/- intervention. CXR noted. Cardiology input appreciated. Medical management, continue ASA/plavix/Coreg/ statin/amlodipine/renexa. Torsemide resumed. Entresto on hold for now. Monitor h/h. OFf insulin pump. Levemir/ISS, diabetic diet for now. PT eval, home oxygen needs assessment. Dispo plan for dc home with pICC/IV abx if renal function stable, duplex and no further intervention planned from Surgical standpoint, pending Duplex LLE studies Plan discussed with patient in detail, all questions answered.
--- NOTE | 2018-09-01 12:06 | PN ---
Progress Note, Physician History of Present Illness: Awake, alert in bed No c/o toe pain Afebrile WBC WNL - Current Medication List Current Medications: Active Medications Acetaminophen (Tylenol -) 650 mg PO Q4H PRN PRN Reason: FEVER Last Admin: 08/29/18 11:22 Dose: 650 mg Amlodipine Besylate (Norvasc -) 5 mg PO DAILY [facility] Last Admin: 09/01/18 10:00 Dose: 5 mg Aspirin (Asa -) 81 mg PO DAILY [facility] Last Admin: 09/01/18 10:00 Dose: 81 mg Atorvastatin Calcium (Lipitor -) 80 mg PO HS [facility] Last Admin: 08/31/18 21:47 Dose: 80 mg Calcium Acetate (Phoslo -) 1,334 mg PO TIDCM [facility] Last Admin: 09/01/18 10:00 Dose: 1,334 mg Carvedilol (Coreg -) 25 mg PO BID [facility] Last Admin: 09/01/18 10:00 Dose: 25 mg Clopidogrel Bisulfate (Plavix -) 75 mg PO DAILY [facility] Last Admin: 09/01/18 10:00 Dose: 75 mg Epoetin Masood (Procrit -) 20,000 unit SQ MOWEFR [facility] Last Admin: 08/30/18 16:54 Dose: 20,000 unit Fluticasone Propionate (Flonase -) 1 spray NS BID [facility] Last Admin: 09/01/18 10:06 Dose: Not Given Guaifenesin/Codeine Phosphate (Robitussin Ac -) 5 ml PO Q8H PRN PRN Reason: COUGH Last Admin: 09/01/18 10:44 Dose: 5 ml Heparin Sodium (Porcine) (Heparin -) 5,000 unit SQ TID [facility] Last Admin: 09/01/18 05:45 Dose: 5,000 unit Ceftriaxone Sodium 2 gm/ (Dextrose) 100 mls @ 200 mls/hr IVPB DAILY [facility]; Protocol Last Admin: 09/01/18 10:01 Dose: 200 mls/hr Insulin Aspart (Novolog Vial Sliding Scale -) 1 vial SQ HS [facility]; Protocol Last Admin: 08/31/18 21:54 Dose: Not Given Insulin Aspart (Novolog Vial Sliding Scale -) 1 vial SQ TIDAC [facility]; Protocol Last Admin: 09/01/18 07:52 Dose: 20 unit Insulin Detemir (Levemir Vial) 46 units SQ HS [facility] Last Admin: 08/31/18 21:51 Dose: 10 units Lactobacillus Acidophilus (Bacid -) 1 tab PO DAILY [facility] Last Admin: 09/01/18 10:00 Dose: 1 tab Mupirocin (Bactroban 2% Cream -) 1 applic TP BID [facility] Last Admin: 09/01/18 10:05 Dose: 1 applic [id number] Ethyl Esters (Lovaza -) 2 gm PO BID [facility] Last Admin: 09/01/18 10:00 Dose: 2 gm Ranitidine HCl (Zantac -) 150 mg PO BID [facility] Last Admin: 09/01/18 10:00 Dose: 150 mg Ranolazine (Ranexa -) 500 mg PO BID [facility] Last Admin: 09/01/18 10:00 Dose: 500 mg Sodium Chloride ([place] Nasal [place] -) 2 spray NS TID PRN PRN Reason: NASAL CONGESTION Last Admin: 08/28/18 12:04 Dose: 2 spray Torsemide (Demadex -) 20 mg PO DAILY [facility] Last Admin: 09/01/18 10:00 Dose: 20 mg - Objective Vital Signs: Vital Signs Temperature 97.9 F 09/01/18 10:00 Pulse Rate 76 09/01/18 10:00 Respiratory Rate 18 09/01/18 10:00 Blood Pressure 127/76 09/01/18 10:00 O2 Sat by Pulse Oximetry (%) 95 09/01/18 11:56 Constitutional: Yes: No Distress, Obese Eyes: Yes: Conjunctiva Clear Cardiovascular: Yes: Regular Rate and Rhythm, S1, S2 Respiratory: Yes: CTA Bilaterally Gastrointestinal: Yes: Normal Bowel Sounds, Soft. No: Tenderness Extremities: Yes: Other (toe erythema resolved) Labs: CBC, BMP 09/01/18 05:30 09/01/18 05:30 INR, PTT INR 1.23 (0.83-1.09) H 08/28/18 06:30 Assessment/Plan Sepsis Osteomyelitis/ Cellulitis L 2nd toe/ distal L LE improved Renal failure Diabetes mellitus Continue ceftriaxone Complete 6w course for osteomyelitis
[2018-09-01] MEDS: EPOETIN ALFA 20,000 UNIT/1 ML VIAL SQ SCH (14:49)
--- NOTE | 2018-09-01 15:55 | PN ---
Progress Note (short form) - Note Progress Note: Renal follow up for HECTOR on CKD Pt seen and examined at the bedside feels well still has some leg swelling no sob, cp, abd pain making urine Vital Signs Temperature 97.9 F 09/01/18 15:08 Pulse Rate 75 09/01/18 15:08 Respiratory Rate 20 09/01/18 15:08 Blood Pressure 151/71 09/01/18 15:08 O2 Sat by Pulse Oximetry (%) 97 09/01/18 14:34 NAD awake and alert RRR, no M/R DEc BS, no rales trace LE edema CBC, BMP 09/01/18 05:30 09/01/18 05:30 Current Medications Acetaminophen (Tylenol -) 650 mg PO Q4H PRN PRN Reason: FEVER Last Admin: 08/29/18 11:22 Dose: 650 mg Amlodipine Besylate (Norvasc -) 5 mg PO DAILY [facility] Last Admin: 09/01/18 10:00 Dose: 5 mg Aspirin (Asa -) 81 mg PO DAILY [facility] Last Admin: 09/01/18 10:00 Dose: 81 mg Atorvastatin Calcium (Lipitor -) 80 mg PO HS [facility] Last Admin: 08/31/18 21:47 Dose: 80 mg Calcium Acetate (Phoslo -) 1,334 mg PO TIDCM [facility] Last Admin: 09/01/18 12:33 Dose: 1,334 mg Carvedilol (Coreg -) 25 mg PO BID [facility] Last Admin: 09/01/18 10:00 Dose: 25 mg Clopidogrel Bisulfate (Plavix -) 75 mg PO DAILY [facility] Last Admin: 09/01/18 10:00 Dose: 75 mg Epoetin Masood (Procrit -) 20,000 unit SQ MOWEFR [facility] Last Admin: 09/01/18 14:49 Dose: 20,000 unit Fluticasone Propionate (Flonase -) 1 spray NS BID [facility] Last Admin: 09/01/18 10:06 Dose: Not Given Guaifenesin/Codeine Phosphate (Robitussin Ac -) 5 ml PO Q8H PRN PRN Reason: COUGH Last Admin: 09/01/18 10:44 Dose: 5 ml Heparin Sodium (Porcine) (Heparin -) 5,000 unit SQ TID [facility] Last Admin: 09/01/18 14:52 Dose: Not Given Ceftriaxone Sodium 2 gm/ (Dextrose) 100 mls @ 200 mls/hr IVPB DAILY [facility]; Protocol Last Admin: 09/01/18 10:01 Dose: 200 mls/hr Insulin Aspart (Novolog Vial Sliding Scale -) 1 vial SQ HS [facility]; Protocol Last Admin: 08/31/18 21:54 Dose: Not Given Insulin Aspart (Novolog Vial Sliding Scale -) 1 vial SQ TIDAC [facility]; Protocol Last Admin: 09/01/18 12:32 Dose: 22 unit Insulin Detemir (Levemir Vial) 46 units SQ HS [facility] Last Admin: 08/31/18 21:51 Dose: 10 units Lactobacillus Acidophilus (Bacid -) 1 tab PO DAILY [facility] Last Admin: 09/01/18 10:00 Dose: 1 tab Mupirocin (Bactroban 2% Cream -) 1 applic TP BID [facility] Last Admin: 09/01/18 10:05 Dose: 1 applic [id number]-[id number] Ethyl Esters (Lovaza -) 2 gm PO BID [facility] Last Admin: 09/01/18 10:00 Dose: 2 gm Ranitidine HCl (Zantac -) 150 mg PO BID [facility] Last Admin: 09/01/18 10:00 Dose: 150 mg Ranolazine (Ranexa -) 500 mg PO BID [facility] Last Admin: 09/01/18 10:00 Dose: 500 mg Sodium Chloride ([place] Nasal [place] -) 2 spray NS TID PRN PRN Reason: NASAL CONGESTION Last Admin: 08/28/18 12:04 Dose: 2 spray Torsemide (Demadex -) 20 mg PO DAILY [facility] Last Admin: 09/01/18 10:00 Dose: 20 mg 57 year old gentleman with hx of 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 #HECTOR on CKD now likely due to volume depletion in setting of diuretics + hemodyanic changes requiring urgent HD for uremic symptoms #Sepsis syndrome from soft tissue infection + osteomylitis #NSTEMI #Acute on chronic anemia #Hx of Hypertension #Lactic acidosis now resolved #Hypocalcemia/Hyperphosphtatemia #Volume overload requiring IV diuresis now resolved Renal function stable at this time, no need for [place] WE[employer]HER at the present time continue torsemide dialy for edema mangement of edema continue Abx as per ID would avoid any further ELROY/ARB Continue pholo for now Jose Manuel Pendleton DO
--- NOTE | 2018-09-01 16:50 | PN ---
Progress Note (short form) - Note Progress Note: C/O cough leg edema Blood glucose 60 in the morning Got only 10 units Levemir last night Vital Signs Period Temp Pulse Resp BP Sys/Gallo Pulse Ox Last 24 Hr 97.5 F-98.0 F 71-93 18-20 114-151/53-76 95-97 PE: AOx3 Neck: Supple, HEENT: EOMI Lungs: cTA CVS: S1S2 Abd: Benign EXt: slight erythema left 2nd toe + Edema Neuro: No focal deficit CMP Sodium 138 mmol/L (136-145) 09/01/18 05:30 Potassium 3.8 mmol/L (3.5-5.1) 09/01/18 05:30 Chloride 102 mmol/L (98-107) 09/01/18 05:30 Carbon Dioxide 27 mmol/L (21-32) 09/01/18 05:30 Anion Gap 9 MMOL/L (8-16) 09/01/18 05:30 BUN 84 mg/dL (7-18) H 09/01/18 05:30 Creatinine 4.0 mg/dL (0.55-1.3) H 09/01/18 05:30 Creat Clearance w eGFR 15.61 (>60) 09/01/18 05:30 POC Glucometer 162 UNITS (80-120) 08/31/18 11:31 Random Glucose 206 mg/dL (74-106) H 09/01/18 05:30 Hemoglobin A1c % 6.0 % (4.2-6.3) 08/19/18 05:15 Lactic Acid 1.1 mmol/L (0.4-2.0) 08/17/18 20:20 Calcium 8.3 mg/dL (8.5-10.1) L 09/01/18 05:30 Phosphorus 4.0 mg/dL (2.5-4.9) 09/01/18 05:30 Magnesium 1.6 mg/dL (1.8-2.4) L 09/01/18 05:30 Iron 181 ug/dL (38-169) H 08/28/18 06:30 TIBC 209 ug/dL (250-450) L 08/28/18 06:30 Iron Saturation 87 % (15-55) H 08/28/18 06:30 Ferritin 199.4 ng/ml (8-388) 08/28/18 06:30 Total Bilirubin 0.8 mg/dL (0.2-1) 08/29/18 06:30 AST 20 U/L (15-37) 08/29/18 06:30 ALT 23 U/L (13-61) 08/29/18 06:30 Alkaline Phosphatase 76 U/L (45-117) 08/29/18 06:30 Creatine Kinase 402 IU/L (26-308) H 08/19/18 05:15 Creatine Kinase Index 2.8 % (0.0-5.0) 08/19/18 05:15 CK-MB (CK-2) 11.6 ng/mL (0.5-3.6) H 08/19/18 05:15 Troponin I 0.57 ng/ml (0.00-0.05) H 08/31/18 05:30 B-Natriuretic Peptide 82016.6 pg/ml (5-125) H 08/20/18 05:30 Total Protein 6.7 g/dl (6.4-8.2) 08/29/18 06:30 Albumin 2.0 g/dl (3.4-5.0) L 08/29/18 06:30 Current Medications Generic Name Dose Route Start Last Admin Trade Name Freq PRN Reason Stop Dose Admin Acetaminophen 650 mg 08/24/18 20:52 08/29/18 11:22 Tylenol - PO 650 mg Q4H PRN Administration FEVER Amlodipine Besylate 5 mg 08/29/18 10:00 09/01/18 10:00 Norvasc - PO 5 mg DAILY [facility] Administration Aspirin 81 mg 08/25/18 10:00 09/01/18 10:00 Asa - PO 81 mg DAILY [facility] Administration Atorvastatin Calcium 80 mg 08/24/18 22:00 08/31/18 21:47 Lipitor - PO 80 mg HS [facility] Administration Calcium Acetate 1,334 mg 08/24/18 17:30 09/01/18 12:33 Phoslo - PO 1,334 mg TIDCM [facility] Administration Carvedilol 25 mg 08/24/18 22:00 09/01/18 10:00 Coreg - PO 25 mg BID [facility] Administration Clopidogrel Bisulfate 75 mg 08/25/18 10:00 09/01/18 10:00 Plavix - PO 75 mg DAILY [facility] Administration Epoetin Masood 20,000 unit 08/30/18 12:30 09/01/18 14:49 Procrit - SQ 20,000 unit MOWEFR [facility] Administration Fluticasone Propionate 1 spray 08/24/18 22:00 09/01/18 10:06 Flonase - NS Not Given BID [facility] Guaifenesin/Codeine Phosphate 5 ml 08/28/18 19:00 09/01/18 10:44 Robitussin Ac - PO 5 ml Q8H PRN Administration COUGH Heparin Sodium (Porcine) 5,000 unit 08/24/18 22:00 09/01/18 14:52 Heparin - SQ Not Given TID [facility] Ceftriaxone Sodium 2 gm/ 100 mls @ 200 mls/hr 08/31/18 16:00 09/01/18 10:01 Dextrose IVPB 200 mls/hr DAILY [facility] Administration Protocol Insulin Aspart 1 vial 08/24/18 22:00 08/31/18 21:54 Novolog Vial Sliding Scale - SQ Not Given HS [facility] Protocol Insulin Aspart 1 vial 08/28/18 11:46 09/01/18 12:32 Novolog Vial Sliding Scale - SQ 22 unit TIDAC [facility] Administration Protocol Insulin Detemir 46 units 08/28/18 22:00 08/31/18 21:51 Levemir Vial SQ 10 units HS [facility] Administration Lactobacillus Acidophilus 1 tab 08/25/18 10:00 09/01/18 10:00 Bacid - PO 1 tab DAILY [facility] Administration Mupirocin 1 applic 08/24/18 22:00 09/01/18 10:05 Bactroban 2% Cream - TP 1 applic BID [facility] Administration [id number] Ethyl Esters 2 gm 08/24/18 22:00 09/01/18 10:00 Lovaza - PO 2 gm BID [facility] Administration Ranitidine HCl 150 mg 08/24/18 22:00 09/01/18 10:00 Zantac - PO 150 mg BID [facility] Administration Ranolazine 500 mg 08/24/18 22:00 09/01/18 10:00 Ranexa - PO 500 mg BID [facility] Administration Sodium Chloride 2 spray 08/24/18 20:52 08/28/18 12:04 [place] Nasal [place] - NS 2 spray TID PRN Administration NASAL CONGESTION Torsemide 20 mg 08/30/18 13:30 09/01/18 10:00 Demadex - PO 20 mg DAILY [facility] Administration AP: Left 2nd toe cellulitis: improving Osteomyelitis: Bone scan suspicious for osteo left 2nd toe T2DM On Insulin pump at home HECTOR on CKD HLD CAD/Elevated Troponins: Probably secondary to demand ischemia CHF BGM Q ACHS Off Insulin pump Decrease Levemir 20 units daily at HS Novolog SS coverage IV abx Will f/u
[2018-09-01] MEDS: ATORVASTATIN CA 80 MG TABLET (FP) PO SCH (21:32)
[2018-09-01] MEDS ORDERED: INSULIN (LEVEMIR) 100 UNITS/ML UNITS SQ SCH (22:00)
[2018-09-02] MEDS: guaiFENesin/CODEINE 5 ML UNIT-DOSE CUPS PO PRN (01:54)
[2018-09-02] MEDS: HEPARIN NA (PORCINE) 5,000 UNITS/ML 1ML VIAL SQ SCH ×2 (06:22→14:27)
[2018-09-02] MEDS: INSULIN SLIDING SCALE (NOVOLOG) 1 VIAL SQ SCH ×2 (06:23→14:25)
[2018-09-02 07:14] LABS: HEMATOCRIT 23.4 % (35.4-49); HEMOGLOBIN 8.1 GM/dL (11.7-16.9); MCHC 34.7 g/dl (32.0-35.9); MEAN CELL VOLUME 86.4 fl (80-96); MEAN PLT VOLUME 6.9 fl (7.5-11.1); PLATELET COUNT 372 K/MM3 (134-434); RBC 2.71 M/mm3 (4.00-5.60); RDW 16.7 % (11.9-15.9)
[2018-09-02 08:08] LABS: ALBUMIN 2.3 g/dl (3.4-5.0); ALK PHOS 79 U/L (45-117); ANION GAP 10 MMOL/L (8-16); BILIRUBIN,TOTAL 0.6 mg/dL (0.2-1); BLOOD UREA NITROGEN 86 mg/dL (7-18); CALCIUM 8.5 mg/dL (8.5-10.1); CHLORIDE 102 mmol/L (98-107); CO2 27 mmol/L (21-32); GLUCOSE,RANDOM 139 mg/dL (74-106); MAGNESIUM 1.8 mg/dL (1.8-2.4); PHOSPHOROUS 4.1 mg/dL (2.5-4.9); POTASSIUM 3.6 mmol/L (3.5-5.1); SGOT/AST 24 U/L (15-37); SGPT/ALT 28 U/L (13-61); SODIUM 140 mmol/L (136-145)
--- NOTE | 2018-09-02 09:13 | PN ---
Progress Note, Physician History of Present Illness: Denies DELANEY with walker assistance, diuretics resumed. Asterixis and tremors resolved post HD for uremia symptoms. Reports left foot discomfort. - Current Medication List Current Medications: Active Medications Acetaminophen (Tylenol -) 650 mg PO Q4H PRN PRN Reason: FEVER Last Admin: 08/29/18 11:22 Dose: 650 mg Amlodipine Besylate (Norvasc -) 5 mg PO DAILY [facility] Last Admin: 09/01/18 10:00 Dose: 5 mg Aspirin (Asa -) 81 mg PO DAILY [facility] Last Admin: 09/01/18 10:00 Dose: 81 mg Atorvastatin Calcium (Lipitor -) 80 mg PO HS [facility] Last Admin: 09/01/18 21:32 Dose: 80 mg Calcium Acetate (Phoslo -) 1,334 mg PO TIDCM [facility] Last Admin: 09/01/18 18:03 Dose: 1,334 mg Carvedilol (Coreg -) 25 mg PO BID [facility] Last Admin: 09/01/18 21:29 Dose: 25 mg Clopidogrel Bisulfate (Plavix -) 75 mg PO DAILY [facility] Last Admin: 09/01/18 10:00 Dose: 75 mg Epoetin Masood (Procrit -) 20,000 unit SQ MOWEFR [facility] Last Admin: 09/01/18 14:49 Dose: 20,000 unit Fluticasone Propionate (Flonase -) 1 spray NS BID [facility] Last Admin: 09/01/18 21:29 Dose: 1 spray Guaifenesin/Codeine Phosphate (Robitussin Ac -) 5 ml PO Q8H PRN PRN Reason: COUGH Last Admin: 09/02/18 01:54 Dose: 5 ml Heparin Sodium (Porcine) (Heparin -) 5,000 unit SQ TID [facility] Last Admin: 09/02/18 06:22 Dose: 5,000 unit Ceftriaxone Sodium 2 gm/ (Dextrose) 100 mls @ 200 mls/hr IVPB DAILY [facility]; Protocol Last Admin: 09/01/18 10:01 Dose: 200 mls/hr Insulin Aspart (Novolog Vial Sliding Scale -) 1 vial SQ HS [facility]; Protocol Last Admin: 09/01/18 21:33 Dose: 2 units Insulin Aspart (Novolog Vial Sliding Scale -) 1 vial SQ TIDAC [facility]; Protocol Last Admin: 09/02/18 06:23 Dose: 14 unit Insulin Detemir (Levemir Vial) 20 units SQ HS [facility] Last Admin: 09/01/18 21:31 Dose: 20 units Lactobacillus Acidophilus (Bacid -) 1 tab PO DAILY [facility] Last Admin: 09/01/18 10:00 Dose: 1 tab Mupirocin (Bactroban 2% Cream -) 1 applic TP BID [facility] Last Admin: 09/01/18 21:29 Dose: 1 applic Exwoh-1-[place]ko[place] Ethyl Esters (Lovaza -) 2 gm PO BID [facility] Last Admin: 09/01/18 21:32 Dose: 2 gm Ranitidine HCl (Zantac -) 150 mg PO BID [facility] Last Admin: 09/01/18 21:32 Dose: 150 mg Ranolazine (Ranexa -) 500 mg PO BID [facility] Last Admin: 09/01/18 21:32 Dose: 500 mg Sodium Chloride ([place] Nasal [place] -) 2 spray NS TID PRN PRN Reason: NASAL CONGESTION Last Admin: 08/28/18 12:04 Dose: 2 spray Torsemide (Demadex -) 20 mg PO DAILY [facility] Last Admin: 09/01/18 10:00 Dose: 20 mg - Objective Vital Signs: Vital Signs Temperature 98.2 F 09/02/18 08:37 Pulse Rate 77 09/02/18 08:37 Respiratory Rate 18 09/02/18 08:37 Blood Pressure 146/78 09/02/18 08:37 O2 Sat by Pulse Oximetry (%) 96 09/02/18 07:37 Constitutional: Yes: No Distress, Calm Neck: Yes: Supple Cardiovascular: Yes: Regular Rate and Rhythm Respiratory: Yes: Regular, Diminished Gastrointestinal: Yes: Normal Bowel Sounds, Soft, Abdomen, Obese Edema: Yes Edema: LLE: Trace Labs: CBC, BMP 09/02/18 05:30 09/02/18 05:30 INR, PTT INR 1.23 (0.83-1.09) H 08/28/18 06:30 - ....Imaging Ultrasound: Report Reviewed (No DVT left leg) Problem List - Problems (1) NSTEMI (non-ST elevated myocardial infarction) Code(s): I21.4 - NON-ST ELEVATION (NSTEMI) MYOCARDIAL INFARCTION (2) Sepsis Code(s): A41.9 - SEPSIS, UNSPECIFIED ORGANISM Qualifiers: Sepsis type: sepsis due to unspecified organism Qualified Code(s): A41.9 - Sepsis, unspecified organism (3) Acute on chronic kidney failure Code(s): N17.9 - ACUTE KIDNEY FAILURE, UNSPECIFIED; N18.9 - CHRONIC KIDNEY DISEASE, UNSPECIFIED Qualifiers: Acute renal failure type: unspecified Chronic kidney disease stage: unspecified stage Qualified Code(s): N17.9 - Acute kidney failure, unspecified ; N18.9 - Chronic kidney disease, unspecified (4) Acute on chronic systolic (congestive) heart failure Code(s): I50.23 - ACUTE ON CHRONIC SYSTOLIC (CONGESTIVE) HEART FAILURE (5) Dyspnea due to congestive heart failure Code(s): I50.9 - HEART FAILURE, UNSPECIFIED (6) Elevated troponin Code(s): R79.89 - OTHER SPECIFIED ABNORMAL FINDINGS OF BLOOD CHEMISTRY (7) HLD (hyperlipidemia) Code(s): E78.5 - HYPERLIPIDEMIA, UNSPECIFIED Qualifiers: Hyperlipidemia type: pure hypercholesterolemia Qualified Code(s): E78.00 - Pure hypercholesterolemia, unspecified (8) HTN (hypertension) Code(s): I10 - ESSENTIAL (PRIMARY) HYPERTENSION Qualifiers: Hypertension type: essential hypertension Qualified Code(s): I10 - Essential (primary) hypertension (9) History of coronary artery stent placement Code(s): Z95.5 - PRESENCE OF CORONARY ANGIOPLASTY IMPLANT AND GRAFT (10) Hx of CABG Code(s): Z95.1 - PRESENCE OF AORTOCORONARY BYPASS GRAFT (11) ICD (implantable cardioverter-defibrillator) in place Code(s): Z95.810 - PRESENCE OF AUTOMATIC (IMPLANTABLE) CARDIAC DEFIBRILLATOR (12) Systolic heart failure Code(s): I50.20 - UNSPECIFIED SYSTOLIC (CONGESTIVE) HEART FAILURE Qualifiers: Heart failure chronicity: acute on chronic Qualified Code(s): I50.23 - Acute on chronic systolic (congestive) heart failure (13) Sleep apnea Code(s): G47.30 - SLEEP APNEA, UNSPECIFIED Qualifiers: Sleep apnea type: obstructive Qualified Code(s): G47.33 - Obstructive sleep apnea (adult) (pediatric) (14) Uremia Code(s): N19 - UNSPECIFIED KIDNEY FAILURE Assessment/Plan 08/18/2018 Echo: Poor windows 1. Acute on chronic class II-III NYHA classification LV systolic failure resolving 2. CAD post [place]/CABG, PCI/stent, demand ischemic injury history of an abnormal MPI study angina pectoris, plan for conservative medical management 3. Aortic stenosis, mild 4. HTN 5. IDDM 6. Hypercholesterolemia 7. Post prophylactic ICD implant, history of NSVT 8. Acute on CKD with hyperkalemia and uremia due to volume depletion in setting of diuretics + hemodyanic changes post HD via femoral shiley since d/charles 9. Anemia post transfusion 10. Gout 11. Obstructive sleep apnea 12. Left leg cellulitis, 2nd toe osteomyelitis PLAN: 1. Post HD for uremia, continue Demadex 20 qd with monitoring diuretic response renal function and electrolytes 2. Continue Coreg 25 bid 3. Would not resume Entresto 26/26 bid given low eGFR per renal 4. Continue Ranexa 500 bid 5. Continue Norvasc 5 qd 6. Continue Lipitor 80 qhs and Lovaza 2 bid 7. Continue Plavix 75 qd and ASA 81 qd with caution in view of the above noted anemia, transfuse as needed to maintain Hg equal or > 8.0 8. Complete 6 week antibiotic course as per ID, plan for LUE PICC line 9. As outlined in the prior note plan to pursue medical management and therapy optimization and deferring any invasive strategy in view of the above noted CKD with acute exacerbation 10. DVT prophylaxis 11. Eventual RUE AVF, epogen for anemia
[2018-09-02] MEDS ORDERED: DEXTROSE 5%-WATER 100 ML IVPB ONE (09:17)
[2018-09-02] MEDS ORDERED: PT OWN MED DRAWER 7, Y5N ONE (09:17)
[2018-09-02] MEDS: CALCIUM ACETATE 667 MG CAPSULE (FP) PO SCH ×2 (09:22→14:25)
[2018-09-02] MEDS: LACTOBACILLUS ACIDOPHILUS 1 TABLET PO SCH (09:23)
[2018-09-02] MEDS: RANOLAZINE E.R. 500 MG TABLET (FP) PO SCH (09:23)
[2018-09-02] MEDS: CLOPIDOGREL BISULFATE 75 MG TABLET (FP) PO SCH (09:23)
[2018-09-02] MEDS: CARVEDILOL 25 MG TABLET (FP) PO SCH (09:23)
[2018-09-02] MEDS: ASPIRIN 81 MG CHEWABLE TABLETS PO SCH (09:23)
[2018-09-02] MEDS: amLODIPine BESYLATE 5 MG TABLET (FP) PO SCH (09:23)
[2018-09-02] MEDS: TORSEMIDE 20 MG TABLET (FP) PO SCH (09:23)
[2018-09-02] MEDS: OMEGA-3 ACID ETHYL ESTERS (FATTY-ACIDS) 1 GM CAPSULE (FP) PO SCH (09:23)
[2018-09-02] MEDS: RANITIDINE HCL 150 MG TABLET (FP) PO SCH (09:23)
[2018-09-02] MEDS: CEFTRIAXONE 2 GM in DEXTROSE 5%-WATER 100 ML IVPB SCH (09:24)
[2018-09-02] MEDS: FLUTICASONE PROP 0.05% 16 GM NASAL SPRAY NS SCH (09:24)
[2018-09-02] MEDS: MUPIROCIN CA 2% TOPICAL CREAM 15 GM TUBE TP SCH (09:24)
--- NOTE | 2018-09-02 11:19 | PN ---
Teaching Attending Note Name of Resident: Dianne Jefferson ATTENDING PHYSICIAN STATEMENT I saw and evaluated the patient. I reviewed the resident's note and discussed the case with the resident. I agree with the resident's findings and plan as documented with exceptions below. SUBJECTIVE: Patient seen and examined. Breathing improved, reports left leg swelling but improved, no new complaints. OBJECTIVE: Vital Signs Period Temp Pulse Resp BP Sys/Gallo Pulse Ox Last 24 Hr 97.7 F-98.2 F 71-93 18-20 129-161/71-92 91-100 Intake & Output 08/30/18 08/31/18 09/01/18 09/02/18 23:59 23:59 23:59 23:59 Intake Total 50 390 730 310 Output Total 1250 1700 1900 600 Balance -1200 -1310 -1170 -290 Weight 282 lb 6.4 oz 283 lb 12.8 oz 283 lb 2 oz 283 lb 4 oz General: lying in bed in no acute distress Chest: decreased breath sounds at bases Abdomen:soft, obese, NT Extremities: LLE swelling, improved erythema, left toe erythema resolved Home Medications Medication Instructions Recorded Ranolazine [Ranexa] 500 mg PO BID 07/13/13 Ranitidine [Zantac -] 150 mg PO BID 06/19/17 Aspirin [ASA -] 81 mg PO DAILY 09/28/17 Nitroglycerin [Nitrostat] 0.4 mg SL PRN PRN 09/28/17 Carvedilol [Coreg -] 25 mg PO BID #60 tablet 09/30/17 Atorvastatin Ca [Lipitor] 80 mg PO HS 06/01/18 Ergocalciferol (Vitamin D2) 50,000 unit PO WEEKLY 06/01/18 [Vitamin D2] Cut Off-3 Fatty Acids [Cut Off-3] 1,000 mg PO BID 06/01/18 Clopidogrel Bisulfate [Plavix -] 75 mg PO DAILY 30 Days #0 tab 06/08/18 Amlodipine Besylate [Norvasc -] 5 mg PO DAILY tablet 09/02/18 Calcium Acetate [Phoslo -] 1,334 mg PO TIDCM capsule 09/02/18 Carvedilol [Coreg -] 25 mg PO BID tablet 09/02/18 Ceftriaxone [Rocephin -] 2 gm IVPB DAILY vial 09/02/18 Epoetin Masood [Procrit -] 20,000 unit SQ MOWEFR ml 09/02/18 Fluticasone Prop 0.05% Nasal 1 spray NS BID spray 09/02/18 [Flonase -] Guaifenesin AC [Robitussin AC -] 5 ml PO Q8H PRN liquid MDD 5 ml 09/02/18 Insulin Sliding Scale [Novolog 1 vial SQ HS units 09/02/18 Vial Sliding Scale -] Insulin Sliding Scale [Novolog 1 vial SQ TIDAC units 09/02/18 Vial Sliding Scale -] Mupirocin Cream [Bactroban 2% 1 applic TP BID tube 09/02/18 Cream -] Sodium Chloride Nasal [place] [[place] 2 spray NS TID PRN spray 09/02/18 [place] Nasal [place] -] Torsemide [Demadex -] 40 mg PO DAILY tablet 09/02/18 Active Medications Acetaminophen (Tylenol -) 650 mg PO Q4H PRN PRN Reason: FEVER Last Admin: 08/29/18 11:22 Dose: 650 mg Amlodipine Besylate (Norvasc -) 5 mg PO DAILY [facility] Last Admin: 09/02/18 09:23 Dose: 5 mg Aspirin (Asa -) 81 mg PO DAILY [facility] Last Admin: 09/02/18 09:23 Dose: 81 mg Atorvastatin Calcium (Lipitor -) 80 mg PO HS [facility] Last Admin: 09/01/18 21:32 Dose: 80 mg Calcium Acetate (Phoslo -) 1,334 mg PO TIDCM [facility] Last Admin: 09/02/18 09:22 Dose: 1,334 mg Carvedilol (Coreg -) 25 mg PO BID [facility] Last Admin: 09/02/18 09:23 Dose: 25 mg Clopidogrel Bisulfate (Plavix -) 75 mg PO DAILY [facility] Last Admin: 09/02/18 09:23 Dose: 75 mg Epoetin Masood (Procrit -) 20,000 unit SQ MOWEFR [facility] Last Admin: 09/01/18 14:49 Dose: 20,000 unit Fluticasone Propionate (Flonase -) 1 spray NS BID [facility] Last Admin: 09/02/18 09:24 Dose: 1 spray Guaifenesin/Codeine Phosphate (Robitussin Ac -) 5 ml PO Q8H PRN PRN Reason: COUGH Last Admin: 09/02/18 01:54 Dose: 5 ml Heparin Sodium (Porcine) (Heparin -) 5,000 unit SQ TID [facility] Last Admin: 09/02/18 06:22 Dose: 5,000 unit Ceftriaxone Sodium 2 gm/ (Dextrose) 100 mls @ 200 mls/hr IVPB DAILY [facility]; Protocol Last Admin: 09/02/18 09:24 Dose: 200 mls/hr Insulin Aspart (Novolog Vial Sliding Scale -) 1 vial SQ HS [facility]; Protocol Last Admin: 09/01/18 21:33 Dose: 2 units Insulin Aspart (Novolog Vial Sliding Scale -) 1 vial SQ TIDAC [facility]; Protocol Last Admin: 09/02/18 06:23 Dose: 14 unit Insulin Detemir (Levemir Vial) 20 units SQ HS [facility] Last Admin: 09/01/18 21:31 Dose: 20 units Lactobacillus Acidophilus (Bacid -) 1 tab PO DAILY [facility] Last Admin: 09/02/18 09:23 Dose: 1 tab Mupirocin (Bactroban 2% Cream -) 1 applic TP BID [facility] Last Admin: 09/02/18 09:24 Dose: 1 applic [id number] Ethyl Esters (Lovaza -) 2 gm PO BID [facility] Last Admin: 09/02/18 09:23 Dose: 2 gm Ranitidine HCl (Zantac -) 150 mg PO BID [facility] Last Admin: 09/02/18 09:23 Dose: 150 mg Ranolazine (Ranexa -) 500 mg PO BID [facility] Last Admin: 09/02/18 09:23 Dose: 500 mg Sodium Chloride ([place] Nasal [place] -) 2 spray NS TID PRN PRN Reason: NASAL CONGESTION Last Admin: 08/28/18 12:04 Dose: 2 spray Torsemide (Demadex -) 20 mg PO DAILY [facility] Last Admin: 09/02/18 09:23 Dose: 20 mg Laboratory Results - last 24 hr 09/01/18 09/02/18 09/02/18 05:30 05:30 05:30 WBC 6.0 RBC 2.71 L Hgb 8.1 L Hct 23.4 L MCV 86.4 MCH 30.0 MCHC 34.7 RDW 16.7 H Plt Count 372 MPV 6.9 L Neutrophils % (Manual) 80.0 Band Neutrophils % 0.0 Lymphocytes % (Manual) 8.0 D Monocytes % (Manual) 9 Eosinophils % (Manual) 1.0 Basophils % (Manual) 0.0 Myelocytes % (Man) 1 D Promyelocytes % (Man) 0 Blast Cells % (Manual) 0 Metamyelocytes 0 Hypochromia 0 Toxic Granulation 0 Dohle Bodies 0 Platelet Estimate Normal Polychromasia 0 Poikilocytosis 0 Basophilic Stippling 0 Anisocytosis 0 Microcytosis 0 Macrocytosis 0 Spherocytes 0 Sickle Cells 0 Target Cells 0 Tear Drop Cells 0 Ovalocytes 0 Stomatocytes 0 Helmet Cells 0 [place] Bodies 0 [place] Rings 0 [place] Cells 0 Acanthocytes (Spur) 0 Rouleaux 0 Fragmented RBCs 0 Schistocytes 0 Sodium 140 Potassium 3.6 Chloride 102 Carbon Dioxide 27 Anion Gap 10 BUN 86 H Creatinine 4.0 H Creat Clearance w eGFR 15.61 Random Glucose 139 H Calcium 8.5 Phosphorus 4.1 Magnesium 1.8 Total Bilirubin 0.6 AST 24 ALT 28 Alkaline Phosphatase 79 Total Protein 7.0 Albumin 2.3 L Microbiology 08/17/18 14:10 Blood - Peripheral Venous Blood Culture - Final NO GROWTH AFTER 5 DAYS INCUBATION 08/17/18 14:25 Blood - Peripheral Venous Blood Culture - Final NO GROWTH AFTER 5 DAYS INCUBATION 08/22/18 07:00 Stool Clostridium difficile Antigen (YEFRI) - Final 08/22/18 07:00 Stool Clostridium difficile Toxin Assay - Final 08/17/18 16:13 Urine - Urine Clean Catch Urine Culture - Final NO GROWTH OBTAINED ASSESSMENT AND PLAN: 57 yom with PMHx of ASHD, IA, S/P CABG, PCI/stent, ICD implant(2007), HTN, hypercholesterolemia, IDDM on insulin pump, CKD stage IV, gout and 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 -LLE cellulitis/Left 2nd toe osteomyelitis -Septic shock, from above, resolved -Acute systolic heart failure exacerbation in the setting fluid resuscitation and IA, s/p lasix/dobutamine drip -HECTOR on CKD stage IV with hyperkalemia and uremia (Asterexis/Tremors) in the setting aggressive diuresis/hemodynamic changes from septic shock, s/p few sessions of HD -Elevated troponin, NSTEMI vs Demand type II in the setting of above -Acute hypoxemic respiratory failure, resolved -NSVT/PVCs/Ventricular trigeminy, improved after coreg -Thrombocytopenia, likely from sepsis, resolved -CAD s/p CABG, ICD -HTN -HLD -IDDM on insulin pump -Epistaxis on high flow oxygen/heparin drip, resolved -Anemia, multifactorial from above, s/p transfusion Plan: Clinically improved. Renal function stable. Discussed with Dr. Pendleton, torsemide 40 mg daily on d/c with outpatient renal function monitoring, no further HD plans for now. LLE duplex neg for DVT. Suspect from withholding diuresis. Ceftriaxone. Discussed with Dr. Burgos, no further surgical plans, 6 weeks of ceftriaxone from 08/22/2018 with outpatient follow up. Cardiology input appreciated. Medical management, continue ASA/plavix/Coreg/ statin/amlodipine/renexa. Torsemide resumed. Entresto on hold for now. Monitor h/h. resume insulin pump on d/c Needs RUE for future dialysis access. For tunnelled cath today for lastex thread winder IV abx. Plan for d/c to SNf today after tunnelled cath with IV abx, and outpatient nephrology/ID/podiatry/cardiology/vascular surgery follow up.
[2018-09-02 14:49] VITALS: BP 152/83; PULSE 74; TEMP 97.6
--- NOTE | 2018-09-02 16:45 | DS ---
Physical Exam: SUBJECTIVE: Patient seen and examined by me at bedside. No acute events overnight Patient denies chest pain, palpitations, fevers, chills, nausea, vomiting, abdominal pain, headaches, acute vision changes OBJECTIVE: Vital Signs Period Temp Pulse Resp BP Sys/Gallo Pulse Ox Last 24 Hr 97.6 F-98.2 F 71-85 18-20 129-161/74-92 91-100 PHYSICAL EXAM GENERAL: The patient is awake, alert, and fully oriented, in no acute distress. EYES: Sclera anicteric, conjunctiva clear. No ptosis. ENT: Moist mucous membranes. LUNGS: Breath sounds equal, clear to auscultation bilaterally, no wheezes, no crackles, no accessory muscle use. on 4L 02 HEART: Regular rate and rhythm, normal s1 and s2 (+) LOAN 2/6 ABDOMEN: Soft, Obese, nontender, nondistended, normoactive bowel sounds. EXTREMITIES: 1+ Pitting edema bilaterally with bilateral leg swelling L>R NEUROLOGICAL: (-) [facility] Laboratory Results - last 24 hr 09/02/18 09/02/18 05:30 05:30 WBC 6.0 RBC 2.71 L Hgb 8.1 L Hct 23.4 L MCV 86.4 MCH 30.0 MCHC 34.7 RDW 16.7 H Plt Count 372 MPV 6.9 L Sodium 140 Potassium 3.6 Chloride 102 Carbon Dioxide 27 Anion Gap 10 BUN 86 H Creatinine 4.0 H Creat Clearance w eGFR 15.61 Random Glucose 139 H Calcium 8.5 Phosphorus 4.1 Magnesium 1.8 Total Bilirubin 0.6 AST 24 ALT 28 Alkaline Phosphatase 79 Total Protein 7.0 Albumin 2.3 L PRE-HOSPITAL COURSE: Patient is a 57 year old male with a significant PMHx of CKD stage IV, IDDM (on insulin pump), HTN, HLD, CAD s/p CABG and s/p AICD, Systolic CHF, Aortic stenosis who presented with a 1 day history of fevers, rigors and malaise after recently getting his nails clipped and developed a painful ulcer of his left second toe. In the ED patient was found to be febrile to 101.6 F, hypotensive and tachypneic. Hypotension did not correct on 1.5L fluid bolus in ED. Received empiric vancomycin/zosyn in ED. Additionally found to have troponemia to 34 w/ EKG suggestive of ST-depressions in I and aVL more significant than on prior EKG in May. Patient was then sent to ICU for further monitoring management. HOSPITAL COURSE: Throughout hospitalization patient was being diuresed due to fluid overload and then developed elevated BUN, AMS and hyperkalemia likely secondary from volume depletion in setting of diuretics and on Entresto. Patient had three rounds of dialysis and required no further dialysis. Patient was making urine and able to walk without much difficulty, Patient throughout hospitalization was also found to have osteomyelitis of the left second toe and will now require IV antibiotics for 6 weeks total. Patient had tunnel catheter placed for IV abx infusions and will be going to Rehab center at [facility]. He was seen by an manager scheduling in house for management of his diabetes and was sent out with his insulin pump with follow up as out patient. Pre and post 02 was done and patient did not require 02 at home. Patient was stable for discharge with strict instructions to follow up with ID, Podiatry, Cardiology, Nephrology, Endocrinology, and Vascular surgery for future vein mapping and fistula for dialysis. Date of Admission:08/17/18 Date of Discharge: 09/02/18 Minutes to complete discharge: 45 Discharge Summary Reason For Visit: SEPSIS Current Active Problems NSTEMI (non-ST elevated myocardial infarction) (Acute) Sepsis (Acute) Septic shock (Acute) Troponin I above reference range (Acute) Uremia (Acute) Condition: Stable - Instructions Diet, Activity, Other Instructions: RECOMMENDATIONS: -You were seen here for shortness of breath and found to have kidney failure. You were given three round of hemodialysis with improvement. You were seen by Dr. Pendleton, the Adult Education Manager. You will need to continue to follow up with Dr. Pendleton to prepare you for future dialysis and manage your kidneys. -Your liver tests were normal in the hospital. -Your had liver ultrasound which did not show anything concerning -You are advised to follow up with Dr. Arredondo in 1 week to discuss further treatment. -In the meantime, advise protonix 40 mg daily for 1 week and low fat diet. -You will be sent home with a surgical boot. -Please apply Bactroban to your toe and wrap with the gauze provided to you. -Continue low fat low sodium renal diet as tolerated. FOLLOW UP: -PCP in 1 week -Dr. Pendleton in 1 week -Dr. Arredondo in 1 week -Follow up with Dr. Burgos at the wound center in this hospital (5th floor) next Thursday (09/07/18). Please call [phone] to make an appointment. -You will also need to follow up with your Denture Laboratory Technician within a week to monitor and make any adjustments for your insulin medication. -Please follow up with your Supervisor [employer], Dr. Mullen, within a week as you had your medication Entresto discontinued and he will need to reassess you for further management. -You will also be followed by Vascular Surgeon, Dr. Khoury, to start vein mapping of your arm for future dialysis. His information will be provided in the Discharge packet. MEDICATIONS: Protonix 40 mg daily for 1 week then as instructed by your doctor, Dr. Arredondo -You will no longer take the medication Entresto. Please dispose the medication or give it to your hat and cap opener. -You will be taking a daily antibiotic through IV for a total of 6 weeks from 08/22/2018, last day 10/02/2018. You will need repeat imaging of your left leg and podiatry Dr. Burgos input before completion of antibiotic treatment to determine further plan. Please follow up with Dr. Barakat for repeat weekly labs at his office. Torsemide is currently increased to 40 mg daily. Daily weights and notify your doctor right away if weight gain > 3 lbs in 2 weeks or any decreased urination noted. Resume insulin pump with blood sugar checks before meals and at bedtime. FOLLOW UP LABS: Weekly BMP (basic metabolic panel), CBC (complete blood count), LFTs (liver function tests) while on antibiotics. Routine tunnelled catheter care and removal once antibiotics are completed per and Dr. Burgos's instructions If you have any worsening pain, dark or bloody stools, vomiting, inability to eat, leg swelling/redness/fevers, chills, decreased urination, trouble breathing or any new concerns, please call 911 or come to ED. Referrals: Walker Burgos MD [Staff Physician] - Micah Melo MD [Staff Physician] - Bridgett Mullen MD [Staff Physician] - Armando Arredondo MD [Staff Physician] - Jose Manuel Pendleton MD [Staff Physician] - Marco Ricketts MD [Staff Physician] - Kevin Khoury MD [Staff Physician] - Disposition: HALFWAY FACILITY - Home Medications Comprehensive Discharge Medication List: Ambulatory Orders Ranolazine [Ranexa] 500 mg PO BID 07/13/13 Ranitidine [Zantac -] 150 mg PO BID 06/19/17 Aspirin [ASA -] 81 mg PO DAILY 09/28/17 Nitroglycerin [Nitrostat] 0.4 mg SL PRN PRN 09/28/17 Carvedilol [Coreg -] 25 mg PO BID #60 tablet 09/30/17 Atorvastatin Ca [Lipitor] 80 mg PO HS 06/01/18 Ergocalciferol (Vitamin D2) [Vitamin D2] 50,000 unit PO WEEKLY 06/01/18 [place]-3 Fatty Acids [[place]-3] 1,000 mg PO BID 06/01/18 Clopidogrel Bisulfate [Plavix -] 75 mg PO DAILY 30 Days #0 tab 06/08/18 Amlodipine Besylate [Norvasc -] 5 mg PO DAILY tablet 09/02/18 Calcium Acetate [Phoslo -] 1,334 mg PO TIDCM capsule 09/02/18 Ceftriaxone [Rocephin -] 2 gm IVPB DAILY vial 09/02/18 Epoetin Masood [Procrit -] 20,000 unit SQ MOWEFR ml 09/02/18 Fluticasone Prop 0.05% Nasal [Flonase -] 1 spray NS BID spray 09/02/18 Guaifenesin AC [Robitussin AC -] 5 ml PO Q8H PRN liquid MDD 5 ml 09/02/18 Insulin Sliding Scale [Novolog Vial Sliding Scale -] 1 vial SQ HS units Insulin Sliding Scale [Novolog Vial Sliding Scale -] 1 vial SQ TIDAC units Mupirocin Cream [Bactroban 2% Cream -] 1 applic TP BID tube 09/02/18 Sodium Chloride Nasal [place] [[place] Nasal [place] -] 2 spray NS TID PRN spray 09/02/18 Torsemide [Demadex -] 40 mg PO DAILY tablet 09/02/18 This patient is new to me today: Yes Date on this admission: 09/02/18 Emergency Visit: No Critical Care patient: No - Discharge Referral Referred to [facility] No
--- NOTE | 2018-09-02 16:49 | PN ---
Progress Note (short form) - Note Progress Note: Less cough tidat leg edema Back on Insulin pump Vital Signs Period Temp Pulse Resp BP Sys/Gallo Pulse Ox Last 24 Hr 97.6 F-98.2 F 71-85 18-20 129-161/74-92 91-100 PE: AOx3 Neck: Supple, HEENT: EOMI Lungs: cTA CVS: S1S2 Abd: Benign EXt: slight erythema left 2nd toe + Edema Neuro: No focal deficit CMP Sodium 140 mmol/L (136-145) 09/02/18 05:30 Potassium 3.6 mmol/L (3.5-5.1) 09/02/18 05:30 Chloride 102 mmol/L (98-107) 09/02/18 05:30 Carbon Dioxide 27 mmol/L (21-32) 09/02/18 05:30 Anion Gap 10 MMOL/L (8-16) 09/02/18 05:30 BUN 86 mg/dL (7-18) H 09/02/18 05:30 Creatinine 4.0 mg/dL (0.55-1.3) H 09/02/18 05:30 Creat Clearance w eGFR 15.61 (>60) 09/02/18 05:30 POC Glucometer 162 UNITS (80-120) 08/31/18 11:31 Random Glucose 139 mg/dL (74-106) H 09/02/18 05:30 Hemoglobin A1c % 6.0 % (4.2-6.3) 08/19/18 05:15 Lactic Acid 1.1 mmol/L (0.4-2.0) 08/17/18 20:20 Calcium 8.5 mg/dL (8.5-10.1) 09/02/18 05:30 Phosphorus 4.1 mg/dL (2.5-4.9) 09/02/18 05:30 Magnesium 1.8 mg/dL (1.8-2.4) 09/02/18 05:30 Iron 181 ug/dL (38-169) H 08/28/18 06:30 TIBC 209 ug/dL (250-450) L 08/28/18 06:30 Iron Saturation 87 % (15-55) H 08/28/18 06:30 Ferritin 199.4 ng/ml (8-388) 08/28/18 06:30 Total Bilirubin 0.6 mg/dL (0.2-1) 09/02/18 05:30 AST 24 U/L (15-37) 09/02/18 05:30 ALT 28 U/L (13-61) 09/02/18 05:30 Alkaline Phosphatase 79 U/L (45-117) 09/02/18 05:30 Creatine Kinase 402 IU/L (26-308) H 08/19/18 05:15 Creatine Kinase Index 2.8 % (0.0-5.0) 08/19/18 05:15 CK-MB (CK-2) 11.6 ng/mL (0.5-3.6) H 08/19/18 05:15 Troponin I 0.57 ng/ml (0.00-0.05) H 08/31/18 05:30 B-Natriuretic Peptide 39953.6 pg/ml (5-125) H 08/20/18 05:30 Total Protein 7.0 g/dl (6.4-8.2) 09/02/18 05:30 Albumin 2.3 g/dl (3.4-5.0) L 09/02/18 05:30 Current Medications Generic Name Dose Route Start Last Admin Trade Name Freq PRN Reason Stop Dose Admin Acetaminophen 650 mg 08/24/18 20:52 08/29/18 11:22 Tylenol - PO 650 mg Q4H PRN Administration FEVER Amlodipine Besylate 5 mg 08/29/18 10:00 09/02/18 09:23 Norvasc - PO 5 mg DAILY [facility] Administration Aspirin 81 mg 08/25/18 10:00 09/02/18 09:23 Asa - PO 81 mg DAILY [facility] Administration Atorvastatin Calcium 80 mg 08/24/18 22:00 09/01/18 21:32 Lipitor - PO 80 mg HS [facility] Administration Calcium Acetate 1,334 mg 08/24/18 17:30 09/02/18 14:25 Phoslo - PO 1,334 mg TIDCM [facility] Administration Carvedilol 25 mg 08/24/18 22:00 09/02/18 09:23 Coreg - PO 25 mg BID [facility] Administration Clopidogrel Bisulfate 75 mg 08/25/18 10:00 09/02/18 09:23 Plavix - PO 75 mg DAILY [facility] Administration Epoetin Masood 20,000 unit 08/30/18 12:30 09/01/18 14:49 Procrit - SQ 20,000 unit MOWEFR [facility] Administration Fluticasone Propionate 1 spray 08/24/18 22:00 09/02/18 09:24 Flonase - NS 1 spray BID [facility] Administration Heparin Sodium (Porcine) 5,000 unit 08/24/18 22:00 09/02/18 14:27 Heparin - SQ Not Given TID [facility] Ceftriaxone Sodium 2 gm/ 100 mls @ 200 mls/hr 08/31/18 16:00 09/02/18 09:24 Dextrose IVPB 200 mls/hr DAILY [facility] Administration Protocol Insulin Aspart 1 vial 08/24/18 22:00 09/01/18 21:33 Novolog Vial Sliding Scale - SQ 2 units HS [facility] Administration Protocol Insulin Aspart 1 vial 08/28/18 11:46 09/02/18 14:25 Novolog Vial Sliding Scale - SQ 22 unit TIDAC [facility] Administration Protocol Insulin Detemir 20 units 09/01/18 22:00 09/01/18 21:31 Levemir Vial SQ 20 units HS [facility] Administration Lactobacillus Acidophilus 1 tab 08/25/18 10:00 09/02/18 09:23 Bacid - PO 1 tab DAILY [facility] Administration Mupirocin 1 applic 08/24/18 22:00 09/02/18 09:24 Bactroban 2% Cream - TP 1 applic BID [facility] Administration [id number] Ethyl Esters 2 gm 08/24/18 22:00 09/02/18 09:23 Lovaza - PO 2 gm BID [facility] Administration Ranitidine HCl 150 mg 08/24/18 22:00 09/02/18 09:23 Zantac - PO 150 mg BID [facility] Administration Ranolazine 500 mg 08/24/18 22:00 09/02/18 09:23 Ranexa - PO 500 mg BID [facility] Administration Sodium Chloride 2 spray 08/24/18 20:52 08/28/18 12:04 [place] Nasal [place] - NS 2 spray TID PRN Administration NASAL CONGESTION Torsemide 20 mg 08/30/18 13:30 09/02/18 09:23 Demadex - PO 20 mg DAILY [facility] Administration AP: Left 2nd toe cellulitis: improving Osteomyelitis: Bone scan suspicious for osteo left 2nd toe T2DM On Insulin pump at home HECTOR on CKD HLD CAD/Elevated Troponins: Probably secondary to demand ischemia CHF BGM Q ACHS Off Insulin pump D/C Levemir Currently on the Insulin Pump, Omnipod Basal settings a follows 12MN 1.3, 6 AM 1.6 and 6 PM 1.3 Novolog SS coverage as per chart. IV abx Will f/u
== END 2018-09-02 17:25 | DRG 871 ==
LOC: JER 13:48 → JICU 16:55 → JER 17:30 → J4W 08-24 20:31
PROVIDERS: ADMIT Internal Medicine; ATTEND Hospitalist
PROC: 5A09557 Assistance with Respiratory Ventilation, Greater than 96 Consecutive Hours, Continuous Positive Airway Pressure (ICD-10-PCS; 2018-08-20)
PROC: 30233N1 Transfusion of Nonautologous Red Blood Cells into Peripheral Vein, Percutaneous Approach (ICD-10-PCS; 2018-08-21)
PROC: 06HN33Z Insertion of Infusion Device into Left Femoral Vein, Percutaneous Approach (ICD-10-PCS; principal; 2018-08-26)
PROC: B54CZZA Ultrasonography of Left Lower Extremity Veins, Guidance (ICD-10-PCS; 2018-08-26)
PROC: 5A1D70Z Performance of Urinary Filtration, Intermittent, Less than 6 Hours Per Day (ICD-10-PCS; 2018-08-26)
PROC: 5A1D70Z Performance of Urinary Filtration, Intermittent, Less than 6 Hours Per Day (ICD-10-PCS; 2018-08-27)
PROC: 5A1D70Z Performance of Urinary Filtration, Intermittent, Less than 6 Hours Per Day (ICD-10-PCS; 2018-08-28)
PROC: 02HV33Z Insertion of Infusion Device into Superior Vena Cava, Percutaneous Approach (ICD-10-PCS; 2018-09-02)
PROC: 0JH63XZ Insertion of Tunneled Vascular Access Device into Chest Subcutaneous Tissue and Fascia, Percutaneous Approach (ICD-10-PCS; 2018-09-02)
PROC: B518ZZA Fluoroscopy of Superior Vena Cava, Guidance (ICD-10-PCS; 2018-09-02)
DX: A41.89 Other specified sepsis (principal); I21.4 Non-ST elevation (NSTEMI) myocardial infarction; R65.21 Severe sepsis with septic shock; J96.01 Acute respiratory failure with hypoxia; I50.23 Acute on chronic systolic (congestive) heart failure; G92 Toxic encephalopathy; I13.0 Hypertensive heart and chronic kidney disease with heart failure and stage 1 through stage 4 chronic kidney disease, or unspecified chronic kidney disease; N18.4 Chronic kidney disease, stage 4 (severe); N17.9 Acute kidney failure, unspecified; I24.8 Other forms of acute ischemic heart disease; E87.2 Acidosis; L97.528 Non-pressure chronic ulcer of other part of left foot with other specified severity; M86.8X7 Other osteomyelitis, ankle and foot; Z68.41 Body mass index [BMI] 40.0-44.9, adult; L03.116 Cellulitis of left lower limb; I25.119 Atherosclerotic heart disease of native coronary artery with unspecified angina pectoris; E66.01 Morbid (severe) obesity due to excess calories; E11.69 Type 2 diabetes mellitus with other specified complication; E11.621 Type 2 diabetes mellitus with foot ulcer; E78.5 Hyperlipidemia, unspecified; L03.032 Cellulitis of left toe; I95.9 Hypotension, unspecified; R04.0 Epistaxis; E83.39 Other disorders of phosphorus metabolism; D69.6 Thrombocytopenia, unspecified; E11.65 Type 2 diabetes mellitus with hyperglycemia; E11.319 Type 2 diabetes mellitus with unspecified diabetic retinopathy without macular edema; E11.22 Type 2 diabetes mellitus with diabetic chronic kidney disease; D64.9 Anemia, unspecified; I25.2 Old myocardial infarction; I08.0 Rheumatic disorders of both mitral and aortic valves; G25.2 Other specified forms of tremor; E87.5 Hyperkalemia; R79.89 Other specified abnormal findings of blood chemistry; H54.40 Blindness, one eye, unspecified eye; G47.30 Sleep apnea, unspecified; R00.0 Tachycardia, unspecified; T42.6X5A Adverse effect of other antiepileptic and sedative-hypnotic drugs, initial encounter; E83.51 Hypocalcemia; M10.9 Gout, unspecified; L08.89 Other specified local infections of the skin and subcutaneous tissue; Z79.4 Long term (current) use of insulin; Z95.1 Presence of aortocoronary bypass graft; Z95.810 Presence of automatic (implantable) cardiac defibrillator
CPT/HCPCS: 36415; 36430; 36511; 36558; 71045-TC-FY; 73660-TC-LT-FY; 76705-TC; 77001-TC-FY; 78315-TC; 80048; 80053; 80074; 81003; 81015; 82272; 82550; 82553; 82570; 82728; 82803; 82962; 83036; 83540; 83550; 83605; 83735; 83880; 84100; 84156; 84300; 84484; 85025; 85027; 85610; 85730; 86618; 86803; 86850; 86900; 86901; 86922; 87040; 87086; 87324; 87449; 87804; 93005; 93010; 93306-TC; 93970-TC; 93971-TC; 94660; 94761; 97116-GP; 97162-GP; 99284-25; A9503; C1751; G0480; J0131; J0885; J1250; J1644; J7030; P9038; P9058

== ENCOUNTER 2018-09-05 13:37 | Inpatient (IN) | payer BC ==
--- NOTE | 2018-09-05 13:58 | PDOC ---
History of Present Illness - General Chief Complaint: Chest Pain Stated Complaint: CHEST PAIN Time Seen by Provider: 09/05/18 13:57 - History of Present Illness Initial Comments: 09/05/18 13:59 57 year old man coming from [facility] w/ a past medical history of IDDM (on insulin pump), HTN, HLD, CAD s/p CABG and s/p AICD, CHF, Aortic stenosis, CKD and osteomyelitis who presents with L sided 8/10 stabbing nonradiating chest pain that only occurs when lying back, the patient also complains of dry cough for the past two weeks and shortness of breath when lying back, he reports that he is unable to sleep when lying back at night, he also complains of bilateral leg swelling. Patient denies fever, abdominal pain, nausea, vomiting, diarrhea, constipation, no current chest pain. The patient was recently admitted for osteomyelitis of second digit of L foot requiring PICC placement and IV antibiotics for 6 weeks total. Patient was discharged on 09/02/18 and placed in [facility] for IV antibiotics (Rocephin). During his hospital stay the patient had fluid overload and was diuresed but developed BUN, AMS and hyperkalemia requiring dialysis(3x). Upon discharge the patient was able to walk with difficulty and make urine. Per at bedside Nephro Dr. Pendleton told patient at discharge that if swelling does not decrease he would increase Torsemide dose, but Dr. Pendleton had not been able to get in contact with medical staff at [facility]. Past History - Past Medical History Allergies/Adverse Reactions: Allergies Allergy/AdvReac Type Severity Reaction Status Date / Time No Known Allergies Allergy Verified 08/17/18 13:51 Home Medications: Ambulatory Orders Ranolazine [Ranexa] 500 mg PO BID 07/13/13 Ranitidine [Zantac -] 150 mg PO BID 06/19/17 Aspirin [ASA -] 81 mg PO DAILY 09/28/17 Nitroglycerin [Nitrostat] 0.4 mg SL PRN PRN 09/28/17 Carvedilol [Coreg -] 25 mg PO BID #60 tablet 09/30/17 Atorvastatin Ca [Lipitor] 80 mg PO HS 06/01/18 Ergocalciferol (Vitamin D2) [Vitamin D2] 50,000 unit PO WEEKLY 06/01/18 [place]-3 Fatty Acids [[place]-3] 1,000 mg PO BID 06/01/18 Clopidogrel Bisulfate [Plavix -] 75 mg PO DAILY 30 Days #0 tab 06/08/18 Amlodipine Besylate [Norvasc -] 5 mg PO DAILY tablet 09/02/18 Calcium Acetate [Phoslo -] 1,334 mg PO TIDCM capsule 09/02/18 Ceftriaxone [Rocephin -] 2 gm IVPB DAILY vial 09/02/18 Fluticasone Prop 0.05% Nasal [Flonase -] 1 spray NS BID spray 09/02/18 Guaifenesin AC [Robitussin AC -] 5 ml PO Q8H PRN liquid MDD 5 ml 09/02/18 Insulin Sliding Scale [Novolog Vial Sliding Scale -] 1 vial SQ HS units Insulin Sliding Scale [Novolog Vial Sliding Scale -] 1 vial SQ TIDAC units Sodium Chloride Nasal [place] [[place]esian [place] Nasal [place] -] 2 spray NS TID PRN spray 09/02/18 Torsemide [Demadex -] 40 mg PO DAILY tablet 09/02/18 Acetaminophen 650 mg PO ASDIR PRN 09/05/18 Epoetin Masood [Epogen] 10,000 unit IJ WEEKLY 09/05/18 Anemia: Yes Asthma: No Cancer: No Cardiac Disorders: Yes (cad,mi Defibrilator) CVA: No COPD: No CHF: Yes Dementia: No Diabetes: Yes (IDDM) GI Disorders: No Disorders: No HTN: Yes Hypercholesterolemia: Yes Liver Disease: No Seizures: No Thyroid Disease: No - Surgical History Cardiac Surgery: Yes (CABG,ICD,CARD STENT X1, DEFIBRILLATOR) GI Surgery: Yes (INSULIN PUMP) Orthopedic Surgery: Yes (left knee arthoscopy) - Suicide/Smoking/Psychosocial Hx Smoking History: Never smoked Hx Alcohol Use: No Drug/Substance Use Hx: No Substance Use Type: None Hx Substance Use Treatment: No *Physical Exam - Physical Exam Comments: 09/05/18 14:54 GENERAL: Awake, alert, and fully oriented, in no acute distress HEAD: No signs of trauma, normocephalic, atraumatic EYES: L eye haziness, EOMI, sclera anicteric, conjunctiva clear ENT:oropharynx clear without exudates. Moist mucosa NECK: Normal ROM, supple LUNGS: No distress, speaks full sentences, mildly decreased breath sounds at the bases R > L HEART: Regular rate and rhythm, normal S1 and S2, no murmurs, rubs or gallops, peripheral pulses normal and equal bilaterally. ABDOMEN: Soft, nontender, normoactive bowel sounds. No guarding, no rebound. No masses EXTREMITIES : Normal inspection, Normal range of motion. No clubbing or cyanosis. 2+ pitting edema from below knees to toes. NEUROLOGICAL: Cranial nerves II through XII grossly intact. Normal speech, no focal sensorimotor deficits SKIN: Warm, Dry, normal turgor, L second digit lesion with greying, well healing appearing ED Treatment Course - LABORATORY CBC & Chemistry Diagram: 09/05/18 14:14 09/05/18 14:14 Medical Decision Making - Medical Decision Making 09/05/18 14:56 ED Course: consider CHF exacerbation vs arrythmia vs ACS vs pneumonia vs PE 09/05/18 15:24 bnp elevated CXR with bibasilar pleural effusion and atelectasis, cardiomegaly, midline airway, blunting of R costophrenic angle, as read by this health underwriter. 09/05/18 15:34 Renal contacted as patient previously required dialysis after diuresis inpatient. Dr. Grijalva recommends diuresing and will follow patient as it will be likely admission. Patient took Torsemide 40 this morning will give Lasix 40 BP 157/80s, HR 70s 09/05/18 15:43 Patient will need admission for chf exacerb and further workup and evaluation 09/05/18 15:59 Dr. Stevenson called and updated on patient admission. 09/05/18 16:23 D-dimer positive Patient's symptoms clinically correlate with chf exacerbation as patient has bilateral leg swelling rather than unilateral leg swelling and feels short of breath more when lying back. However was on differential as patient with shortness of breath, limited mobility and only on asa and plavix. Inpatient team made aware of lab finding. *DC/Admit/Observation/Transfer Diagnosis at time of Disposition: CHF exacerbation - Discharge Dispostion Condition at time of disposition: Fair Decision to Admit order: Yes - Referrals - Patient Instructions - Post Discharge Activity
[2018-09-05 14:42] LABS: BASO % 0.8 % (0-2.0); HEMATOCRIT 25.4 % (35.4-49); HEMOGLOBIN 8.7 GM/dL (11.7-16.9); MCH 30.2 pg (25.7-33.7); MEAN CELL VOLUME 88.8 fl (80-96); MEAN PLT VOLUME 6.4 fl (7.5-11.1); MONO % 7.4 % (3.8-10.2); NEUT % 79.8 % (42.8-82.8); PLATELET COUNT 277 K/MM3 (134-434); RBC 2.86 M/mm3 (4.00-5.60); RDW 16.7 % (11.9-15.9); WHITE BLOOD COUNT 5.4 K/mm3 (4.0-10.0)
[2018-09-05 15:05] LABS: ALBUMIN 2.8 g/dl (3.4-5.0); ALK PHOS 101 U/L (45-117); ANION GAP 11 MMOL/L (8-16); BILIRUBIN,TOTAL 0.5 mg/dL (0.2-1); BLOOD UREA NITROGEN 80 mg/dL (7-18); CALCIUM 8.9 mg/dL (8.5-10.1); CHLORIDE 100 mmol/L (98-107); CO2 28 mmol/L (21-32); CREATININE 3.9 mg/dL (0.55-1.3); N-TERMINAL BNP 27915.6 pg/ml (5-125); POTASSIUM 4.2 mmol/L (3.5-5.1); SGOT/AST 21 U/L (15-37); SGPT/ALT 34 U/L (13-61); SODIUM 138 mmol/L (136-145); TOT PROT 7.6 g/dl (6.4-8.2)
[2018-09-05 15:08] LABS: GLUCOSE,RANDOM 333 mg/dL (74-106)
[2018-09-05] MEDS ORDERED: FUROSEMIDE 40 MG/4 ML INJECTABLE VIAL IVPUSH ONE (15:35)
[2018-09-05 15:49] LABS: INR 1.19 (0.83-1.09); PROTHROMBIN TIME (PATIENT) 14.1 SEC (9.7-13.0)
[2018-09-05 15:52] LABS: ACTIVATED PTT 28.9 SECONDS (25.2-36.5)
--- NOTE | 2018-09-05 16:14 | PDOC ---
Attending Attestation - Resident Resident Name: ErrolTish caban - ED Attending Attestation I have performed the following: I have examined & evaluated the patient, The case was reviewed & discussed with the resident, I agree w/resident's findings & plan, Exceptions are as noted - HPI HPI: 09/05/18 16:50 The patient is a 57 year old male with a significant past medical history of IDDM (uses insulin pump), HLD, HTN, CAD s/p CABG and s/p AICD, Aortic stenosis, CHF, CKD, and osteomyelitis who presents today to the ED complaining of left sided stabbing chest pain with a severity of 8/10. The patient states the pain is nonradiating and only occurs while the patient is lying down. The patient also reports to have a dry cough accompanied by SOB. The patient also states to have bilat leg swelling but denies fever , nausea, vomiting, diarrhea , constipation, and abdominal pain. PCP: Dr. Stevenson Technical Adjuster: Dr. Pendleton - Physicial Exam PE: 09/05/18 16:54 agree with resident exam - Medical Decision Making 09/05/18 16:54 57yo M hx IDDM (uses insulin pump), HLD, HTN, CAD s/p CABG and s/p AICD, aortic stenosis, CHF, CKD, and osteomyelitis presents to the ED with SOB and chest pain worse when he lies down. Work up revealing of b/l pleural effusions which are likely causing symtoms of pleurisy when he is prone. Labs with trop of 0.33 , although pt often makes a troponin and can not clear 2/2 CKD. BNP also significantly elevated consistent with CHF. Plan to diurese pt, admit for further w/u. D-dimer was sent initially as PE is on the differential. Dimer is positive, although given we have a reason for his sxs, a PE is less likely. Dimer results have been communicated to Dr. Blackburn who the pt is admitted to. Case discussed in detail with admitting physician including history, physical exam and ancillary studies. Admitting physician has assumed care for the patient, will follow all pending diagnostics and will complete the evaluation and treatment. Heart Score/ECG Review #1 09/05/18 16:14 Twelve-lead EKG was performed and reviewed by me. Normal sinus rhythm, rate 78. Normal axis. TWI I, II, avl. No ROSIE. When compared to previous EKG, no sig changes
--- NOTE | 2018-09-05 16:17 | HP ---
CHIEF COMPLAINT: Shortness of breath/Orthopnea/Leg swelling PCP: Dr. 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 Patient and also concerned about care at [facility] and would be interested in alternate placement. Has been urinating well and left second toe redness has been improving. Denies any new fevers, chills, chest pressure, arm pain, neck or jaw pain or new concerns. 12 point ROS done, neg except above. 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, abnormal stress test in 06/2017, Left ureteral stone with hydronenphrosis s/p recent stenting, recently admitted with septic shock from left second toe cellulitis/osteomyelitis, NSTEMI (trop peak 37.6) hospital course complicated by volume overload requiring Lasix/dobutamine drip, later with worsening HECTOR, requiring few sessions of HD, discharged on IV ceftriaxone PAST SURGICAL HISTORY: AICD, CABG, PCI Social History: Smoking: denies smoking Alcohol: denies Drugs: denies Family History: Diabetes: Mother (), Brother, Heart Disease: Mother, Brother Allergies No Known Allergies Allergy (Verified 08/17/18 13:51) HOME MEDICATIONS: Home Medications Medication Instructions Recorded Ranolazine [Ranexa] 500 mg PO BID 07/13/13 Ranitidine [Zantac -] 150 mg PO BID 06/19/17 Aspirin [ASA -] 81 mg PO DAILY 09/28/17 Nitroglycerin [Nitrostat] 0.4 mg SL PRN PRN 09/28/17 Carvedilol [Coreg -] 25 mg PO BID #60 tablet 09/30/17 Atorvastatin Ca [Lipitor] 80 mg PO HS 06/01/18 Ergocalciferol (Vitamin D2) 50,000 unit PO WEEKLY 06/01/18 [Vitamin D2] [place]-3 Fatty Acids [[place]-3] 1,000 mg PO BID 06/01/18 Clopidogrel Bisulfate [Plavix -] 75 mg PO DAILY 30 Days #0 tab 06/08/18 Amlodipine Besylate [Norvasc -] 5 mg PO DAILY tablet 09/02/18 Calcium Acetate [Phoslo -] 1,334 mg PO TIDCM capsule 09/02/18 Ceftriaxone [Rocephin -] 2 gm IVPB DAILY vial 09/02/18 Fluticasone Prop 0.05% Nasal 1 spray NS BID spray 09/02/18 [Flonase -] Guaifenesin AC [Robitussin AC -] 5 ml PO Q8H PRN liquid MDD 5 ml 09/02/18 Insulin Sliding Scale [Novolog 1 vial SQ HS units 09/02/18 Vial Sliding Scale -] Insulin Sliding Scale [Novolog 1 vial SQ TIDAC units 09/02/18 Vial Sliding Scale -] Sodium Chloride Nasal [place] [[place] 2 spray NS TID PRN spray 09/02/18 [place] Nasal [place] -] Torsemide [Demadex -] 40 mg PO DAILY tablet 09/02/18 Acetaminophen 650 mg PO ASDIR PRN 09/05/18 Epoetin Masood [Epogen] 10,000 unit IJ WEEKLY 09/05/18 REVIEW OF SYSTEMS CONSTITUTIONAL: Absent: fever, chills, diaphoresis, malaise, loss of appetite, weight change Present: generalized weakness HEENT: Absent: rhinorrhea, nasal congestion, throat pain, throat swelling, difficulty swallowing, mouth swelling, ear pain, eye pain, visual changes CARDIOVASCULAR: Absent: syncope, palpitations, irregular heart rate, lightheadedness, Present: orthopnea, PND, leg swelling sharp chest pain RESPIRATORY: Present: cough, shortness of breath, dyspnea with exertion, orthopnea, Negative: wheezing, stridor, hemoptysis GASTROINTESTINAL: Absent: abdominal pain, abdominal distension, nausea, vomiting, diarrhea, constipation, melena, hematochezia GENITOURINARY: Absent: dysuria, frequency, urgency, hesitancy, hematuria, flank pain, genital pain MUSCULOSKELETAL: Absent: myalgia, arthralgia, joint swelling, back pain, neck pain SKIN: Absent: rash, itching, pallor HEMATOLOGIC/IMMUNOLOGIC: Absent: easy bleeding, easy bruising, lymphadenopathy, frequent infections ENDOCRINE: Absent: unexplained weight loss, heat intolerance, cold intolerance Present: weight gain NEUROLOGIC: Absent: headache, focal weakness or paresthesias, dizziness, unsteady gait, seizure, mental status changes, bladder or bowel incontinence PSYCHIATRIC: Absent: anxiety, depression, suicidal or homicidal ideation, hallucinations. PHYSICAL EXAMINATION Vital Signs - 24 hr 09/05/18 13:57 Temperature 98.5 F Pulse Rate 77 Respiratory 22 H Rate Blood Pressure 157/77 O2 Sat by Pulse 100 Oximetry (%) GENERAL: Awake, alert, and fully oriented, weak looking, mild respiratory distress, no use of accessory muscles of respiration, able to speak in full sentences HEAD: Normal with no signs of trauma. EYES: Pupils equal, round and reactive to light, extraocular movements intact, sclera anicteric, conjunctiva clear. No lid lag. EARS, NOSE, THROAT: Ears normal, nares patent, oropharynx clear without exudates. Moist mucous membranes. NECK: soft, supple, unable to visualize JVD as limited by body habitus LUNGS: decreased breath sounds all over, more at the bases, no wheezing or rales appreciated HEART: Regular rate and rhythm, normal S1 and S2 ABDOMEN: Soft, obese, nontender, not distended, normoactive bowel sounds, no guarding, no rebound, no masses. MUSCULOSKELETAL: Normal range of motion at all joints. No bony deformities or tenderness. No CVA tenderness. UPPER EXTREMITIES: 2+ pulses, warm, well-perfused. No cyanosis. No clubbing. No peripheral edema. LOWER EXTREMITIES: 2-3+ bilateral pedal pitting edema L>R, left second toe with resolving redness/swelling, no active discharge, healing ulcer with granulation tissue at the tip of left second toe NEUROLOGICAL: Cranial nerves II-XII intact. Normal speech. AAOX3, facial symmetry, tongue midline power 5/5. Gait no observed PSYCHIATRIC: Cooperative. Good eye contact. Appropriate mood and affect. SKIN: Warm, dry, normal turgor, no rashes or lesions noted, normal capillary refill. Laboratory Results - last 24 hr 09/05/18 09/05/18 09/05/18 14:14 14:14 14:55 WBC 5.4 RBC 2.86 L Hgb 8.7 L Hct 25.4 L MCV 88.8 MCH 30.2 MCHC 34.0 RDW 16.7 H Plt Count 277 D MPV 6.4 L Absolute Neuts (auto) 4.3 Neutrophils % 79.8 Lymphocytes % 10.0 Monocytes % 7.4 Eosinophils % 2.0 Basophils % 0.8 Nucleated RBC % 0 PT with INR INR PTT (Actin FS) D-Dimer Sodium 138 Potassium 4.2 Chloride 100 Carbon Dioxide 28 Anion Gap 11 BUN 80 H Creatinine 3.9 H Creat Clearance w eGFR 16.07 POC Glucometer [phone] Random Glucose 333 H* Calcium 8.9 Total Bilirubin 0.5 AST 21 ALT 34 Alkaline Phosphatase 101 Troponin I 0.33 H B-Natriuretic Peptide 51916.6 H Total Protein 7.6 Albumin 2.8 L 09/05/18 09/05/18 15:14 15:14 WBC RBC Hgb Hct MCV MCH MCHC RDW Plt Count MPV Absolute Neuts (auto) Neutrophils % Lymphocytes % Monocytes % Eosinophils % Basophils % Nucleated RBC % PT with INR 14.10 H INR 1.19 H PTT (Actin FS) 28.9 D-Dimer 1986 H Sodium Potassium Chloride Carbon Dioxide Anion Gap BUN Creatinine Creat Clearance w eGFR POC Glucometer Random Glucose Calcium Total Bilirubin AST ALT Alkaline Phosphatase Troponin I B-Natriuretic Peptide Total Protein Albumin CXR results reviewed, right pleural effusion EKG: NSR, QTc 476, unchanged from prior EKG ASSESSMENT/PLAN: 57 yom with PMHx of [place], [place], S/P CABG, PCI/stent, AICD (2007), HTN, hypercholesterolemia, IDDM on insulin pump, CKD stage IV, gout and 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 -Acute on chronic systolic heart failure exacerbation -CKD stage IV -LLE cellulitis/left 2nd toe osteomyelitis on IV ceftriaxone -Recent septic shock complicated by volume overload requiring lasix/dobutamine drip, complicated by HECTOR requiring HD -Recent NSTEMI (peak [place] 37.6) -CAD s/p CABG, ICD, PCI -HTN -HLD -IDDM on insulin pump -Anemia, suspect from CKD/recent sepsis/blood draws Plan: patient was resumed on torsemide 20 mg recently and transitioned to 40 mg on discharge. has been getting progressively volume overloaded. nephrology consulted with Dr. Grijalva, lasix 40 mg IV x 1. Strict I/Os and daily weights. Discussed with patient and that will need to address hemodialysis if volume status fails to improve or limited by worsening HECTOR. Defer to renal. Elevated D-dimer, however, patient known to me from recent admit. Duplex LE neg 09/01/2018 neg for DVT. Current clinical exam and symptoms all suggestive of volume overload. D-dimer non specific in the setting of recent sepsis, osteomyelitis, CKD, and current comorbidities. Will diurese and monitor clinically. Continue Ceftriaxone. ID input if new concerns. patient and advised to turn off insulin pump (was off at [facility]). Will place on levemir 20 units hs and ISS per recent endocrine recs. ASA/plavix/statin/coreg/renexa/amlodipine DVTPPX heparin Dispo admit to inpatient telemetry Plan discussed with patient and at bedside in detail, all questions answered Total admit time 65 min. Visit type - Emergency Visit Emergency Visit: Yes ED Registration Date: 09/05/18 Care time: The patient presented to the Emergency Department on the above date and was hospitalized for further evaluation of their emergent condition. - New Patient This patient is new to me today: Yes Date on this admission: 09/05/18 - Critical Care Critical Care patient: No
[2018-09-05] MEDS ORDERED: FUROSEMIDE 40 MG/4 ML INJECTABLE VIAL ONE (16:18)
[2018-09-05] MEDS ORDERED: SODIUM CHLORIDE NASAL SPRAY 44 ML BOTTLE NS PRN (16:56)
--- NOTE | 2018-09-05 18:28 | EKG ---
Test Reason : Blood Pressure : / mmHG Vent. Rate : 078 BPM Atrial Rate : 078 BPM P-R Int : 198 ms QRS Dur : 116 ms QT Int : 418 ms P-R-T Axes : 065 036 156 degrees QTc Int : 476 ms NORMAL SINUS RHYTHM NONSPECIFIC ST AND T WAVE ABNORMALITY POOR R WAVE PROGRESSION ABNORMAL ECG WHEN COMPARED WITH ECG OF 22-AUG-2018 08:53, T WAVE VARIATION Confirmed by ARIN PARDO MD [id number]) on 09/05/2018 6:27:45 PM Referred By: Confirmed By:ARIN PARDO MD
[2018-09-05] MEDS ORDERED: INSULIN (LEVEMIR) 100 UNITS/ML UNITS SQ SCH (22:00)
[2018-09-05] MEDS ORDERED: HEPARIN NA (PORCINE) 5,000 UNITS/ML 1ML VIAL ONE (23:39)
[2018-09-05] MEDS ORDERED: ATORVASTATIN CA 80 MG TABLET (FP) ONE (23:39)
[2018-09-05] MEDS ORDERED: CARVEDILOL 12.5 MG TABLET (FP) ONE (23:39)
[2018-09-05] MEDS: INSULIN SLIDING SCALE (NOVOLOG) 1 VIAL SQ SCH (23:55)
[2018-09-06] MEDS: ATORVASTATIN CA 80 MG TABLET (FP) PO SCH ×2 (00:46→21:24)
[2018-09-06] MEDS: HEPARIN NA (PORCINE) 5,000 UNITS/ML 1ML VIAL SQ SCH ×4 (00:46→21:24)
[2018-09-06] MEDS: CARVEDILOL 25 MG TABLET (FP) PO SCH ×3 (00:46→21:24)
[2018-09-06] MEDS: RANOLAZINE E.R. 500 MG TABLET (FP) PO SCH ×3 (00:47→21:23)
[2018-09-06] MEDS: FLUTICASONE PROP 0.05% 16 GM NASAL SPRAY NS SCH ×3 (01:17→21:32)
[2018-09-06] MEDS: RANITIDINE HCL 150 MG TABLET (FP) PO SCH ×3 (01:17→21:23)
[2018-09-06] MEDS: INSULIN SLIDING SCALE (NOVOLOG) 1 VIAL SQ SCH ×5 (06:28→21:28)
[2018-09-06] MEDS ORDERED: FUROSEMIDE 40 MG/4 ML INJECTABLE VIAL IVPUSH ONE (07:31)
[2018-09-06 07:40] LABS: EOS % 2.7 % (0-4.5); HEMATOCRIT 23.4 % (35.4-49); HEMOGLOBIN 8.1 GM/dL (11.7-16.9); MCH 30.7 pg (25.7-33.7); MCHC 34.6 g/dl (32.0-35.9); MEAN CELL VOLUME 88.9 fl (80-96); MEAN PLT VOLUME 6.5 fl (7.5-11.1); MONO % 8.5 % (3.8-10.2); NEUT % 74.8 % (42.8-82.8); PLATELET COUNT 249 K/MM3 (134-434); RBC 2.63 M/mm3 (4.00-5.60); WHITE BLOOD COUNT 5.2 K/mm3 (4.0-10.0)
[2018-09-06 08:11] LABS: ALBUMIN 2.6 g/dl (3.4-5.0); ALK PHOS 89 U/L (45-117); ANION GAP 8 MMOL/L (8-16); BILIRUBIN,TOTAL 0.6 mg/dL (0.2-1); BLOOD UREA NITROGEN 82 mg/dL (7-18); CALCIUM 8.3 mg/dL (8.5-10.1); CHLORIDE 103 mmol/L (98-107); CO2 28 mmol/L (21-32); CREATININE 3.9 mg/dL (0.55-1.3); GLUCOSE,RANDOM 235 mg/dL (74-106); MAGNESIUM 1.8 mg/dL (1.8-2.4); PHOSPHOROUS 3.6 mg/dL (2.5-4.9); POTASSIUM 4.1 mmol/L (3.5-5.1); SGOT/AST 17 U/L (15-37); SGPT/ALT 29 U/L (13-61); SODIUM 139 mmol/L (136-145)
[2018-09-06] MEDS ORDERED: DEXTROSE 5%-WATER 100 ML IVPB ONE (08:33)
[2018-09-06] MEDS: CEFTRIAXONE 2 GM in DEXTROSE 5%-WATER 100 ML IVPB SCH (09:19)
[2018-09-06] MEDS: CLOPIDOGREL BISULFATE 75 MG TABLET (FP) PO SCH (09:20)
[2018-09-06] MEDS: amLODIPine BESYLATE 5 MG TABLET (FP) PO SCH (09:20)
[2018-09-06] MEDS: ASPIRIN COATED 81 MG TABLET.EC PO SCH (09:20)
[2018-09-06 10:21] LABS: URINE APPEARANCE CLEAR; URINE BILIRUBIN NEGATIVE (<2.0 mg/dL); URINE COLOR YELLOW; URINE GLUCOSE (UA) 3+ (NEGATIVE); URINE KETONE NEGATIVE (NEGATIVE); URINE LEUK ESTERASE NEGATIVE (NEGATIVE); URINE NITRITE NEGATIVE (NEGATIVE); URINE PROTEIN 2+ (NEGATIVE); URINE UROBILINOGEN NEGATIVE mg/dL (0.2-1.0)
[2018-09-06 10:34] LABS: URINE HYALINE CAST 3 /lpf; URINE MUCUS RARE
--- NOTE | 2018-09-06 11:42 | PN ---
Teaching Attending Note Name of Resident: Dianne Jefferson ATTENDING PHYSICIAN STATEMENT I saw and evaluated the patient. I reviewed the resident's note and discussed the case with the resident. I agree with the resident's findings and plan as documented with exceptions below. SUBJECTIVE: Patient seen and examined. leg swelling with some improvement. Overall unchanged , urinating well. No new fevers/chills or concerns. OBJECTIVE: Vital Signs Period Temp Pulse Resp BP Sys/Gallo Pulse Ox Last 24 Hr 97.9 F-98.5 F 75-85 20-22 128-157/73-79 97-100 Intake & Output 09/03/18 09/04/18 09/05/18 09/06/18 23:59 23:59 23:59 23:59 Intake Total 400 Output Total 400 Balance 0 Weight 275 lb 278 lb 6.4 oz General: sitting in bed, no acute distress Neck; soft, supple, JVD difficult to visualize given body habitus Chest: decreased breath sounds at bases, overall unchanged Abdomen: soft, obese, NT throughout Extremities some improvement in pedal edema, L>R Home Medications Medication Instructions Recorded Ranolazine [Ranexa] 500 mg PO BID 07/13/13 Ranitidine [Zantac -] 150 mg PO BID 06/19/17 Aspirin [ASA -] 81 mg PO DAILY 09/28/17 Nitroglycerin [Nitrostat] 0.4 mg SL PRN PRN 09/28/17 Carvedilol [Coreg -] 25 mg PO BID #60 tablet 09/30/17 Atorvastatin Ca [Lipitor] 80 mg PO HS 06/01/18 Ergocalciferol (Vitamin D2) 50,000 unit PO WEEKLY 06/01/18 [Vitamin D2] [place]-3 Fatty Acids [[place]-3] 1,000 mg PO BID 06/01/18 Clopidogrel Bisulfate [Plavix -] 75 mg PO DAILY 30 Days #0 tab 06/08/18 Amlodipine Besylate [Norvasc -] 5 mg PO DAILY tablet 09/02/18 Calcium Acetate [Phoslo -] 1,334 mg PO TIDCM capsule 09/02/18 Ceftriaxone [Rocephin -] 2 gm IVPB DAILY vial 09/02/18 Fluticasone Prop 0.05% Nasal 1 spray NS BID spray 09/02/18 [Flonase -] Guaifenesin AC [Robitussin AC -] 5 ml PO Q8H PRN liquid MDD 5 ml 09/02/18 Insulin Sliding Scale [Novolog 1 vial SQ HS units 09/02/18 Vial Sliding Scale -] Insulin Sliding Scale [Novolog 1 vial SQ TIDAC units 09/02/18 Vial Sliding Scale -] Sodium Chloride Nasal [place] [[place] 2 spray NS TID PRN spray 09/02/18 [place] Nas[place] -] Torsemide [Demadex -] 40 mg PO DAILY tablet 09/02/18 Acetaminophen 650 mg PO ASDIR PRN 09/05/18 Epoetin Masood [Epogen] 10,000 unit IJ WEEKLY 09/05/18 Active Medications Acetaminophen (Tylenol -) 650 mg PO Q6H PRN PRN Reason: PAIN LEVEL 1-5 Amlodipine Besylate (Norvasc -) 5 mg PO DAILY [facility] Last Admin: 09/06/18 09:20 Dose: 5 mg Aspirin (Ecotrin -) 81 mg PO DAILY [facility] Last Admin: 09/06/18 09:20 Dose: 81 mg Atorvastatin Calcium (Lipitor -) 80 mg PO HS [facility] Last Admin: 09/06/18 00:46 Dose: 80 mg Carvedilol (Coreg -) 25 mg PO BID [facility] Last Admin: 09/06/18 09:20 Dose: 25 mg Clopidogrel Bisulfate (Plavix -) 75 mg PO DAILY [facility] Last Admin: 09/06/18 09:20 Dose: 75 mg Fluticasone Propionate (Flonase -) 1 spray NS BID [facility] Last Admin: 09/06/18 09:21 Dose: 1 spray Heparin Sodium (Porcine) (Heparin -) 5,000 unit SQ TID [facility] Last Admin: 09/06/18 06:27 Dose: 5,000 unit Ceftriaxone Sodium 2 gm/ (Dextrose) 100 mls @ 200 mls/hr IVPB DAILY [facility]; Protocol Last Admin: 09/06/18 09:19 Dose: 200 mls/hr Insulin Aspart (Novolog Vial Sliding Scale -) 1 vial SQ ACHS [facility]; Protocol Last Admin: 09/06/18 06:28 Dose: 6 units Insulin Detemir (Levemir Vial) 20 units SQ HS [facility] Last Admin: 09/05/18 23:55 Dose: 20 units Ranitidine HCl (Zantac -) 150 mg PO BID [facility] Last Admin: 09/06/18 09:20 Dose: 150 mg Ranolazine (Ranexa -) 500 mg PO BID [facility] Last Admin: 09/06/18 09:20 Dose: 500 mg Sodium Chloride ([place] Nasal [place] -) 2 spray NS Q8H PRN PRN Reason: NASAL CONGESTION Laboratory Results - last 24 hr 09/05/18 09/05/18 09/05/18 14:14 14:14 14:55 WBC 5.4 RBC 2.86 L Hgb 8.7 L Hct 25.4 L MCV 88.8 MCH 30.2 MCHC 34.0 RDW 16.7 H Plt Count 277 D MPV 6.4 L Absolute Neuts (auto) 4.3 Neutrophils % 79.8 Lymphocytes % 10.0 Monocytes % 7.4 Eosinophils % 2.0 Basophils % 0.8 Nucleated RBC % 0 PT with INR INR PTT (Actin FS) D-Dimer Sodium 138 Potassium 4.2 Chloride 100 Carbon Dioxide 28 Anion Gap 11 BUN 80 H Creatinine 3.9 H Creat Clearance w eGFR 16.07 POC Glucometer [phone] Random Glucose 333 H* Calcium 8.9 Phosphorus Magnesium Total Bilirubin 0.5 AST 21 ALT 34 Alkaline Phosphatase 101 Troponin I 0.33 H B-Natriuretic Peptide 75270.6 H Total Protein 7.6 Albumin 2.8 L Urine Color Urine Appearance Urine pH Ur Specific [place] Urine Protein Urine Glucose (UA) Urine Ketones Urine Blood Urine Nitrite Urine Bilirubin Urine Urobilinogen Ur Leukocyte Esterase Urine WBC (Auto) Urine RBC (Auto) Hyaline Casts Urine Mucus 09/05/18 09/05/18 09/05/18 15:14 15:14 17:54 WBC RBC Hgb Hct MCV MCH MCHC RDW Plt Count MPV Absolute Neuts (auto) Neutrophils % Lymphocytes % Monocytes % Eosinophils % Basophils % Nucleated RBC % PT with INR 14.10 H INR 1.19 H PTT (Actin FS) 28.9 D-Dimer 1986 H Sodium Potassium Chloride Carbon Dioxide Anion Gap BUN Creatinine Creat Clearance w eGFR POC Glucometer Random Glucose Calcium Phosphorus Magnesium Total Bilirubin AST ALT Alkaline Phosphatase Troponin I 0.28 H B-Natriuretic Peptide Total Protein Albumin Urine Color Urine Appearance Urine pH Ur Specific [place] Urine Protein Urine Glucose (UA) Urine Ketones Urine Blood Urine Nitrite Urine Bilirubin Urine Urobilinogen Ur Leukocyte Esterase Urine WBC (Auto) Urine RBC (Auto) Hyaline Casts Urine Mucus 09/05/18 09/06/1819 23:45 06:07 06:19 WBC 5.2 RBC 2.63 L Hgb 8.1 L Hct 23.4 L MCV 88.9 MCH 30.7 MCHC 34.6 RDW 17.0 H Plt Count 249 MPV 6.5 L Absolute Neuts (auto) 3.9 Neutrophils % 74.8 Lymphocytes % 13.0 D Monocytes % 8.5 Eosinophils % 2.7 Basophils % 1.0 Nucleated RBC % 0 PT with INR INR PTT (Actin FS) D-Dimer Sodium Potassium Chloride Carbon Dioxide Anion Gap BUN Creatinine Creat Clearance w eGFR POC Glucometer [phone] Random Glucose Calcium Phosphorus Magnesium Total Bilirubin AST ALT Alkaline Phosphatase Troponin I B-Natriuretic Peptide Total Protein Albumin Urine Color Urine Appearance Urine pH Ur Specific [place] Urine Protein Urine Glucose (UA) Urine Ketones Urine Blood Urine Nitrite Urine Bilirubin Urine Urobilinogen Ur Leukocyte Esterase Urine WBC (Auto) Urine RBC (Auto) Hyaline Casts Urine Mucus 09/06/18 09/06/18 06:19 10:00 WBC RBC Hgb Hct MCV MCH MCHC RDW Plt Count MPV Absolute Neuts (auto) Neutrophils % Lymphocytes % Monocytes % Eosinophils % Basophils % Nucleated RBC % PT with INR INR PTT (Actin FS) D-Dimer Sodium 139 Potassium 4.1 Chloride 103 Carbon Dioxide 28 Anion Gap 8 BUN 82 H Creatinine 3.9 H Creat Clearance w eGFR 16.07 POC Glucometer Random Glucose 235 H Calcium 8.3 L Phosphorus 3.6 Magnesium 1.8 Total Bilirubin 0.6 AST 17 ALT 29 Alkaline Phosphatase 89 Troponin I B-Natriuretic Peptide Total Protein 7.0 Albumin 2.6 L Urine Color Yellow Urine Appearance Clear Urine pH 5.0 Ur Specific [place] 1.010 Urine Protein 2+ H Urine Glucose (UA) 3+ H Urine Ketones Negative Urine Blood 1+ H Urine Nitrite Negative Urine Bilirubin Negative Urine Urobilinogen Negative Ur Leukocyte Esterase Negative Urine WBC (Auto) 2 Urine RBC (Auto) 2 Hyaline Casts [address] chest results reviewed ASSESSMENT AND PLAN: 57 yom with PMHx of ASHD, NE, S/P CABG, PCI/stent, AICD (2007), HTN, hypercholesterolemia, IDDM on insulin pump, CKD stage IV, gout and 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 -Acute on chronic systolic heart failure exacerbation -CKD stage IV -LLE cellulitis/left 2nd toe osteomyelitis on IV ceftriaxone -Recent septic shock complicated by volume overload requiring lasix/dobutamine drip, complicated by HECTOR requiring HD -Recent NSTEMI (peak Tn 37.6) -CAD s/p CABG, ICD, PCI -HTN -HLD -IDDM on insulin pump -Anemia, suspect from CKD/recent sepsis/blood draws Plan: CT chest with bilateral pleural effusions and congestive changes. No clinical s/ s concerning for PNA currently. Additional lasix 40 mg IV Further diuresis per renal. Strict I/Os and daily weights. Discussed with patient and that may need to address hemodialysis if volume status fails to improve or limited by worsening HECTOR. Defer to renal. Continue Ceftriaxone. ID input if new concerns. patient and advised to turn off insulin pump (was off at [facility]). Levemir 20 units hs and ISS per recent endocrine recs. Titrate up as needed ASA/plavix/statin/coreg/renexa/amlodipine DVTPPX heparin Dispo pending clinical improvement. Patient and interested in alternative disposition arrangements. Discuss with CM.
--- NOTE | 2018-09-06 12:05 | PN ---
Physical Exam: SUBJECTIVE: Patient seen and examined by me at bedside. Overall offers no complaints Complains of B/L LE edema good UOP Otherwise, denies any fever, chills, nausea, vomiting, abdominal pain, chest pain, palpitations, headaches, urinary symptoms, bowel symptoms. OBJECTIVE: Vital Signs Period Temp Pulse Resp BP Sys/Gallo Pulse Ox Last 24 Hr 97.9 F-98.5 F 75-85 20-22 128-157/73-79 97-100 GENERAL: The patient is awake, alert, and fully oriented, in no acute distress. EYES: Sclera anicteric, conjunctiva clear. No ptosis. ENT: Moist mucous membranes. LUNGS: Decreased breath sounds with no wheezes, no crackles, no accessory muscle use. HEART: Regular rate and rhythm, normal s1 and s2 (+) LOAN 2/6 ABDOMEN: Soft, Obese, nontender, nondistended, normoactive bowel sounds. EXTREMITIES: 1+ Pitting edema bilaterally with bilateral leg swelling L>R Laboratory Results 09/06/18 06:19 09/06/18 06:19 Active Medications Generic Name Dose Route Start Last Admin Trade Name Freq PRN Reason Stop Dose Admin Acetaminophen 650 mg 09/05/18 16:50 Tylenol - PO Q6H PRN PAIN LEVEL 1-5 Amlodipine Besylate 5 mg 09/06/18 10:00 09/06/18 09:20 Norvasc - PO 5 mg DAILY [facility] Administration Aspirin 81 mg 09/06/18 10:00 09/06/18 09:20 Ecotrin - PO 81 mg DAILY [facility] Administration Atorvastatin Calcium 80 mg 09/05/18 22:00 09/06/18 00:46 Lipitor - PO 80 mg HS [facility] Administration Carvedilol 25 mg 09/05/18 22:00 09/06/18 09:20 Coreg - PO 25 mg BID [facility] Administration Clopidogrel Bisulfate 75 mg 09/06/18 10:00 09/06/18 09:20 Plavix - PO 75 mg DAILY [facility] Administration Fluticasone Propionate 1 spray 09/05/18 22:00 09/06/18 09:21 Flonase - NS 1 spray BID [facility] Administration Heparin Sodium (Porcine) 5,000 unit 09/05/18 22:00 09/06/18 06:27 Heparin - SQ 5,000 unit TID [facility] Administration Ceftriaxone Sodium 2 gm/ 100 mls @ 200 mls/hr 09/06/18 10:00 09/06/18 09:19 Dextrose IVPB 200 mls/hr DAILY [facility] Administration Protocol Insulin Aspart 1 vial 09/05/18 22:00 09/06/18 06:28 Novolog Vial Sliding Scale - SQ 6 units ACHS [facility] Administration Protocol Insulin Detemir 20 units 09/05/18 22:00 09/05/18 23:55 Levemir Vial SQ 20 units HS [facility] Administration Ranitidine HCl 150 mg 09/06/18 01:00 09/06/18 09:20 Zantac - PO 150 mg BID [facility] Administration Ranolazine 500 mg 09/05/18 22:00 09/06/18 09:20 Ranexa - PO 500 mg BID [facility] Administration Sodium Chloride 2 spray 09/05/18 16:56 [place] Nasal [place] - NS Q8H PRN NASAL CONGESTION ASSESSMENT/PLAN: Patient is a 57 year old male with significant PMHx IDDM (on insulin pump), HTN , HLD, CAD s/p CABG and s/p AICD, CHF, Aortic stenosis, CKD, recently admitted with septic shock from left second toe cellulitis/osteomyelitis, NSTEMI (trop peak 37.6) hospital course complicated by volume overload requiring Lasix/ dobutamine drip, later with worsening HECTOR, requiring few sessions of HD. Patient was discharged on IV Ceftriaxone and Turosemide. Patient returned due to worsening shortness of breath fluid overload. Patient found to be in acute on chronic CHF and admitted to telemetry for further monitoring and evaluation. 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 Will need 6 week course, as per ID -ID consult placed #HTN-controlled -Continue Coreg 25 mg PO BID and Norvasc 5mg daily #IDDMII -Continue Levemir 20 Units. -ISS -BGM -Watch for hypoglycemic episodes #CAD s/p CABG, ICD, PCI -Continue Plavix -Continue baby ASA -Continue Ranexa #FEN -No Fluids -Eelectrolytes wnl -Diabetic diet #Prophylaxis -Heparin sq TID for DVT -Ranitidine 150 mg BID for GI #Disposition -Full code -Continue to Diurese. Likely needs 24-48 hours Dianne Jefferson [id number] Visit type - Emergency Visit Emergency Visit: Yes ED Registration Date: 09/05/18 Care time: The patient presented to the Emergency Department on the above date and was hospitalized for further evaluation of their emergent condition. - New Patient This patient is new to me today: Yes Date on this admission: 09/06/18 - Critical Care Critical Care patient: No
--- NOTE | 2018-09-06 13:45 | PN ---
Progress Note (short form) - Note Progress Note: Renal follow up for CKD and Volume overload This is a 57 year old with CKD stage 4, CAD s/p CABG, HLD, DM with recent admission with sepsis from LE osteomylitis/cellulitis complicated by renal failure requiring dialysis with improvement in renal function now presents from rehab with CHF. Vital Signs Temperature 97.9 F 09/06/18 09:00 Pulse Rate 82 09/06/18 09:00 Respiratory Rate 20 09/06/18 09:00 Blood Pressure 129/75 09/06/18 09:00 O2 Sat by Pulse Oximetry (%) 97 09/06/18 09:00 Intake & Output 09/03/18 09/04/18 09/05/18 09/06/18 23:59 23:59 23:59 23:59 Intake Total 400 Output Total 400 Balance 0 Weight 124.738 kg 126.28 kg NAD awake and alert neck supple, no jVD RRR, No M/R Dec BS soft, obese, NT/ND + edema in LE CBC, BMP 09/06/18 06:19 09/06/18 06:19 Current Medications Acetaminophen (Tylenol -) 650 mg PO Q6H PRN PRN Reason: PAIN LEVEL 1-5 Amlodipine Besylate (Norvasc -) 5 mg PO DAILY [facility] Last Admin: 09/06/18 09:20 Dose: 5 mg Aspirin (Ecotrin -) 81 mg PO DAILY [facility] Last Admin: 09/06/18 09:20 Dose: 81 mg Atorvastatin Calcium (Lipitor -) 80 mg PO HS [facility] Last Admin: 09/06/18 00:46 Dose: 80 mg Carvedilol (Coreg -) 25 mg PO BID [facility] Last Admin: 09/06/18 09:20 Dose: 25 mg Clopidogrel Bisulfate (Plavix -) 75 mg PO DAILY [facility] Last Admin: 09/06/18 09:20 Dose: 75 mg Fluticasone Propionate (Flonase -) 1 spray NS BID [facility] Last Admin: 09/06/18 09:21 Dose: 1 spray Heparin Sodium (Porcine) (Heparin -) 5,000 unit SQ TID [facility] Last Admin: 09/06/18 06:27 Dose: 5,000 unit Ceftriaxone Sodium 2 gm/ (Dextrose) 100 mls @ 200 mls/hr IVPB DAILY [facility]; Protocol Last Admin: 09/06/18 09:19 Dose: 200 mls/hr Insulin Aspart (Novolog Vial Sliding Scale -) 1 vial SQ ACHS [facility]; Protocol Last Admin: 09/06/18 12:45 Dose: Not Given Insulin Detemir (Levemir Vial) 20 units SQ HS [facility] Last Admin: 09/05/18 23:55 Dose: 20 units Ranitidine HCl (Zantac -) 150 mg PO BID [facility] Last Admin: 09/06/18 09:20 Dose: 150 mg Ranolazine (Ranexa -) 500 mg PO BID [facility] Last Admin: 09/06/18 09:20 Dose: 500 mg Sodium Chloride ([place] Nasal [place] -) 2 spray NS Q8H PRN PRN Reason: NASAL CONGESTION 57 year old with CKD stage 4, CAD s/p CABG, HLD, DM with recent admission with sepsis from LE osteomylitis/cellulitis complicated by renal failure requiring dialysis with improvement in renal function now presents from rehab with CHF. 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
[2018-09-06] MEDS: INSULIN (LEVEMIR) 100 UNITS/ML UNITS SQ SCH (21:24)
[2018-09-06] MEDS: ACETAMINOPHEN 325 MG TABLET (FP) PO PRN (21:29)
[2018-09-06] MEDS ORDERED: guaiFENesin/CODEINE 5 ML UNIT-DOSE CUPS PO ONE (22:28)
[2018-09-07] MEDS: INSULIN SLIDING SCALE (NOVOLOG) 1 VIAL SQ SCH ×4 (06:32→21:35)
[2018-09-07] MEDS: HEPARIN NA (PORCINE) 5,000 UNITS/ML 1ML VIAL SQ SCH ×3 (06:33→21:28)
[2018-09-07] MEDS: FUROSEMIDE 40 MG/4 ML INJECTABLE VIAL IVPUSH SCH (06:34)
[2018-09-07 07:11] LABS: BASO % 1.1 % (0-2.0); EOS % 3.9 % (0-4.5); HEMATOCRIT 24.7 % (35.4-49); HEMOGLOBIN 8.2 GM/dL (11.7-16.9); LYMPH % 13.3 % (8-40); MCHC 33.4 g/dl (32.0-35.9); MEAN CELL VOLUME 89.8 fl (80-96); MEAN PLT VOLUME 6.7 fl (7.5-11.1); NEUT % 72.7 % (42.8-82.8); PLATELET COUNT 237 K/MM3 (134-434); RBC 2.75 M/mm3 (4.00-5.60); RDW 17.5 % (11.9-15.9); WHITE BLOOD COUNT 5.2 K/mm3 (4.0-10.0)
[2018-09-07 07:28] LABS: ALBUMIN 2.7 g/dl (3.4-5.0); ALK PHOS 85 U/L (45-117); ANION GAP 10 MMOL/L (8-16); BILIRUBIN,TOTAL 0.6 mg/dL (0.2-1); BLOOD UREA NITROGEN 78 mg/dL (7-18); CALCIUM 8.2 mg/dL (8.5-10.1); CHLORIDE 105 mmol/L (98-107); CO2 27 mmol/L (21-32); CREATININE 3.7 mg/dL (0.55-1.3); GLUCOSE,RANDOM 158 mg/dL (74-106); MAGNESIUM 1.8 mg/dL (1.8-2.4); PHOSPHOROUS 4.9 mg/dL (2.5-4.9); POTASSIUM 3.9 mmol/L (3.5-5.1); SGOT/AST 18 U/L (15-37); SGPT/ALT 27 U/L (13-61); SODIUM 142 mmol/L (136-145)
[2018-09-07] MEDS: amLODIPine BESYLATE 5 MG TABLET (FP) PO SCH (09:15)
[2018-09-07] MEDS: ASPIRIN COATED 81 MG TABLET.EC PO SCH (09:15)
[2018-09-07] MEDS: CLOPIDOGREL BISULFATE 75 MG TABLET (FP) PO SCH (09:15)
[2018-09-07] MEDS: RANITIDINE HCL 150 MG TABLET (FP) PO SCH ×2 (09:15→21:25)
[2018-09-07] MEDS: RANOLAZINE E.R. 500 MG TABLET (FP) PO SCH ×2 (09:15→21:25)
[2018-09-07] MEDS: CARVEDILOL 25 MG TABLET (FP) PO SCH ×2 (09:15→21:25)
[2018-09-07] MEDS: FLUTICASONE PROP 0.05% 16 GM NASAL SPRAY NS SCH ×2 (09:16→21:32)
--- NOTE | 2018-09-07 10:16 | PN ---
Teaching Attending Note Name of Resident: Dianne Jefferson ATTENDING PHYSICIAN STATEMENT I saw and evaluated the patient. I reviewed the resident's note and discussed the case with the resident. I agree with the resident's findings and plan as documented with exceptions below. SUBJECTIVE: Patient seen and examined, Breathing and swelling improved, no new complaints. OBJECTIVE: Vital Signs Period Temp Pulse Resp BP Sys/Gallo Pulse Ox Last 24 Hr 97.7 F-98.1 F 62-87 20-20 133-156/75-88 96-96 Intake & Output 09/04/18 09/05/18 09/06/18 09/07/18 23:59 23:59 23:59 23:59 Intake Total 1110 180 Output Total 700 Balance 410 180 Weight 275 lb 278 lb 6.4 oz 275 lb 9.6 oz General: sitting at edge of bed, no acute distress Chest: Decreased breath sounds at bases, no rales or wheezing appreciated, unchanged exam Abdomen:Soft, obese, NT Extremities: improved pedal edema, no new erythema or tenderness left 2nd toe Home Medications Medication Instructions Recorded Ranolazine [Ranexa] 500 mg PO BID 07/13/13 Ranitidine [Zantac -] 150 mg PO BID 06/19/17 Aspirin [ASA -] 81 mg PO DAILY 09/28/17 Nitroglycerin [Nitrostat] 0.4 mg SL PRN PRN 09/28/17 Carvedilol [Coreg -] 25 mg PO BID #60 tablet 09/30/17 Atorvastatin Ca [Lipitor] 80 mg PO HS 06/01/18 Ergocalciferol (Vitamin D2) 50,000 unit PO WEEKLY 06/01/18 [Vitamin D2] [place]-3 Fatty Acids [[place]-3] 1,000 mg PO BID 06/01/18 Clopidogrel Bisulfate [Plavix -] 75 mg PO DAILY 30 Days #0 tab 06/08/18 Amlodipine Besylate [Norvasc -] 5 mg PO DAILY tablet 09/02/18 Calcium Acetate [Phoslo -] 1,334 mg PO TIDCM capsule 09/02/18 Ceftriaxone [Rocephin -] 2 gm IVPB DAILY vial 09/02/18 Fluticasone Prop 0.05% Nasal 1 spray NS BID spray 09/02/18 [Flonase -] Guaifenesin AC [Robitussin AC -] 5 ml PO Q8H PRN liquid MDD 5 ml 09/02/18 Insulin Sliding Scale [Novolog 1 vial SQ HS units 09/02/18 Vial Sliding Scale -] Insulin Sliding Scale [Novolog 1 vial SQ TIDAC units 09/02/18 Vial Sliding Scale -] Sodium Chloride Nasal [place] [[place] 2 spray NS TID PRN spray 09/02/18 [place] Nasal [place] -] Torsemide [Demadex -] 40 mg PO DAILY tablet 09/02/18 Acetaminophen 650 mg PO ASDIR PRN 09/05/18 Epoetin Masood [Epogen] 10,000 unit IJ WEEKLY 09/05/18 Active Medications Acetaminophen (Tylenol -) 650 mg PO Q6H PRN PRN Reason: PAIN LEVEL 1-5 Last Admin: 09/06/18 21:29 Dose: 650 mg Amlodipine Besylate (Norvasc -) 5 mg PO DAILY [facility] Last Admin: 09/07/18 09:15 Dose: 5 mg Aspirin (Ecotrin -) 81 mg PO DAILY [facility] Last Admin: 09/07/18 09:15 Dose: 81 mg Atorvastatin Calcium (Lipitor -) 80 mg PO HS [facility] Last Admin: 09/06/18 21:24 Dose: 80 mg Carvedilol (Coreg -) 25 mg PO BID [facility] Last Admin: 09/07/18 09:15 Dose: 25 mg Clopidogrel Bisulfate (Plavix -) 75 mg PO DAILY [facility] Last Admin: 09/07/18 09:15 Dose: 75 mg Fluticasone Propionate (Flonase -) 1 spray NS BID [facility] Last Admin: 09/07/18 09:16 Dose: 1 spray Furosemide (Lasix Injection -) 40 mg IVPUSH AM [facility] Last Admin: 09/07/18 06:34 Dose: 40 mg Heparin Sodium (Porcine) (Heparin -) 5,000 unit SQ TID [facility] Last Admin: 09/07/18 06:33 Dose: 5,000 unit Ceftriaxone Sodium 2 gm/ (Dextrose) 100 mls @ 200 mls/hr IVPB DAILY [facility]; Protocol Last Admin: 09/06/18 09:19 Dose: 200 mls/hr Insulin Aspart (Novolog Vial Sliding Scale -) 1 vial SQ ACHS [facility]; Protocol Last Admin: 09/07/18 06:32 Dose: 2 units Insulin Detemir (Levemir Vial) 28 units SQ HS [facility] Last Admin: 09/06/18 21:24 Dose: 28 units Ranitidine HCl (Zantac -) 150 mg PO BID [facility] Last Admin: 09/07/18 09:15 Dose: 150 mg Ranolazine (Ranexa -) 500 mg PO BID [facility] Last Admin: 09/07/18 09:15 Dose: 500 mg Sodium Chloride ([place] Nasal [place] -) 2 spray NS Q8H PRN PRN Reason: NASAL CONGESTION Last Admin: 09/07/18 09:16 Dose: 2 sprays Laboratory Results - last 24 hr 09/06/18 09/06/18 09/06/18 10:00 11:25 16:36 WBC RBC Hgb Hct MCV MCH MCHC RDW Plt Count MPV Absolute Neuts (auto) Neutrophils % Lymphocytes % Monocytes % Eosinophils % Basophils % Nucleated RBC % Sodium Potassium Chloride Carbon Dioxide Anion Gap BUN Creatinine Creat Clearance w eGFR POC Glucometer 242 304 Random Glucose Calcium Phosphorus Magnesium Total Bilirubin AST ALT Alkaline Phosphatase Total Protein Albumin Urine Color Yellow Urine Appearance Clear Urine pH 5.0 Ur Specific [place] 1.010 Urine Protein 2+ H Urine Glucose (UA) 3+ H Urine Ketones Negative Urine Blood 1+ H Urine Nitrite Negative Urine Bilirubin Negative Urine Urobilinogen Negative Ur Leukocyte Esterase Negative Urine WBC (Auto) 2 Urine RBC (Auto) 2 Hyaline Casts 3 Urine Mucus Rare 09/06/18 09/07/18 09/07/18 21:22 05:26 05:30 WBC 5.2 RBC 2.75 L Hgb 8.2 L Hct 24.7 L MCV 89.8 MCH 30.0 MCHC 33.4 RDW 17.5 H Plt Count 237 MPV 6.7 L Absolute Neuts (auto) 3.8 Neutrophils % 72.7 Lymphocytes % 13.3 Monocytes % 9.0 Eosinophils % 3.9 Basophils % 1.1 Nucleated RBC % 0 Sodium Potassium Chloride Carbon Dioxide Anion Gap BUN Creatinine Creat Clearance w eGFR POC Glucometer 279 187 Random Glucose Calcium Phosphorus Magnesium Total Bilirubin AST ALT Alkaline Phosphatase Total Protein Albumin Urine Color Urine Appearance Urine pH Ur Specific [place] Urine Protein Urine Glucose (UA) Urine Ketones Urine Blood Urine Nitrite Urine Bilirubin Urine Urobilinogen Ur Leukocyte Esterase Urine WBC (Auto) Urine RBC (Auto) Hyaline Casts Urine Mucus 09/07/18 05:30 WBC RBC Hgb Hct MCV MCH MCHC RDW Plt Count MPV Absolute Neuts (auto) Neutrophils % Lymphocytes % Monocytes % Eosinophils % Basophils % Nucleated RBC % Sodium 142 Potassium 3.9 Chloride 105 Carbon Dioxide 27 Anion Gap 10 BUN 78 H Creatinine 3.7 H Creat Clearance w eGFR 17.08 POC Glucometer Random Glucose 158 H Calcium 8.2 L Phosphorus 4.9 Magnesium 1.8 Total Bilirubin 0.6 AST 18 ALT 27 Alkaline Phosphatase 85 Total Protein 7.0 Albumin 2.7 L Urine Color Urine Appearance Urine pH Ur Specific [place] Urine Protein Urine Glucose (UA) Urine Ketones Urine Blood Urine Nitrite Urine Bilirubin Urine Urobilinogen Ur Leukocyte Esterase Urine WBC (Auto) Urine RBC (Auto) Hyaline Casts Urine Mucus CT chest results reviewed Telemetry reviewed ASSESSMENT AND PLAN: 57 yom with PMHx of ASHD, GA, S/P CABG, PCI/stent, AICD (2007), HTN, hypercholesterolemia, IDDM on insulin pump, CKD stage IV, gout and 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 -Acute on chronic systolic heart failure exacerbation -CKD stage IV -LLE cellulitis/left 2nd toe osteomyelitis on IV ceftriaxone -Recent septic shock complicated by volume overload requiring lasix/dobutamine drip, complicated by HECTOR requiring HD -Recent NSTEMI (peak Tn 37.6) -CAD s/p CABG, ICD, PCI -HTN -HLD -IDDM on insulin pump -Anemia, suspect from CKD/recent sepsis/blood draws Plan: CT chest with bilateral pleural effusions and congestive changes. No clinical s/ s concerning for PNA currently. Lasix 40 mg IV daily. Renal input appreciated. Volume status improving. Strict I/Os and daily weights. Discussed with patient and that may need to address hemodialysis if volume status fails to improve or limited by worsening HECTOR. Defer to renal. Continue Ceftriaxone(Plan till 10/02/2018) and local wound care. ID input if new concerns. Currently off insulin pump. Levemir increased to 28 units, ISS, diabetic diet. Seen by endocrine on recent admission. ASA/plavix/statin/coreg/renexa/amlodipine DVTPPX heparin Dispo pending clinical improvement. Patient and interested in alternative disposition arrangements. Discuss with CM. Plan discussed with patient and nursing, all questions answered.
[2018-09-07] MEDS ORDERED: DEXTROSE 5%-WATER 100 ML IVPB ONE (10:28)
[2018-09-07] MEDS: CEFTRIAXONE 2 GM in DEXTROSE 5%-WATER 100 ML IVPB SCH (10:35)
[2018-09-07] MEDS: OMEGA-3 ACID ETHYL ESTERS (FATTY-ACIDS) 1 GM CAPSULE (FP) PO SCH ×2 (12:27→21:25)
[2018-09-07] MEDS: ACETAMINOPHEN 325 MG TABLET (FP) PO PRN ×2 (14:55→21:25)
--- NOTE | 2018-09-07 18:22 | PN ---
Physical Exam: SUBJECTIVE: Patient seen and examined by me at bedside. No acute events overnight Patient reports significant improvement with his shortness of breath and edema. Denies any fever, chills, nausea, vomiting, abdominal pain, chest pain, palpitations, headaches, dysuria, hematuria OBJECTIVE: Vital Signs Period Temp Pulse Resp BP Sys/Gallo Pulse Ox Last 24 Hr 97.7 F-98.1 F 62-87 20-20 133-156/76-88 96-96 GENERAL: The patient is awake, alert, and fully oriented, in no acute distress. EYES: Sclera anicteric, conjunctiva clear. No ptosis. ENT: Moist mucous membranes. LUNGS: Decreased breath sounds with no wheezes, no crackles, no accessory muscle use. HEART: Regular rate and rhythm, normal s1 and s2 (+) LOAN 2/6 ABDOMEN: Soft, Obese, nontender, nondistended, normoactive bowel sounds. EXTREMITIES: trace pitting edema bilaterally with bilateral leg swelling L>R (+ ) erythema and tenderness of left 2nd toe Laboratory Results 09/07/18 05:30 09/07/18 05:30 Active Medications Generic Name Dose Route Start Last Admin Trade Name Freq PRN Reason Stop Dose Admin Acetaminophen 650 mg 09/05/18 16:50 09/07/18 14:55 Tylenol - PO 650 mg Q6H PRN Administration PAIN LEVEL 1-5 Amlodipine Besylate 5 mg 09/06/18 10:00 09/07/18 09:15 Norvasc - PO 5 mg DAILY [facility] Administration Aspirin 81 mg 09/06/18 10:00 09/07/18 09:15 Ecotrin - PO 81 mg DAILY [facility] Administration Atorvastatin Calcium 80 mg 09/05/18 22:00 09/06/18 21:24 Lipitor - PO 80 mg HS [facility] Administration Carvedilol 25 mg 09/05/18 22:00 09/07/18 09:15 Coreg - PO 25 mg BID [facility] Administration Clopidogrel Bisulfate 75 mg 09/06/18 10:00 09/07/18 09:15 Plavix - PO 75 mg DAILY [facility] Administration Fluticasone Propionate 1 spray 09/05/18 22:00 09/07/18 09:16 Flonase - NS 1 spray BID [facility] Administration Furosemide 40 mg 09/07/18 07:00 09/07/18 06:34 Lasix Injection - IVPUSH 40 mg AM [facility] Administration Heparin Sodium (Porcine) 5,000 unit 09/05/18 22:00 09/07/18 14:37 Heparin - SQ Not Given TID [facility] Ceftriaxone Sodium 2 gm/ 100 mls @ 200 mls/hr 09/06/18 10:00 09/07/18 10:35 Dextrose IVPB 200 mls/hr DAILY [facility] Administration Protocol Insulin Aspart 1 vial 09/05/18 22:00 09/07/18 12:27 Novolog Vial Sliding Scale - SQ 8 units ACHS [facility] Administration Protocol Insulin Detemir 28 units 09/06/18 16:03 09/06/18 21:24 Levemir Vial SQ 28 units HS [facility] Administration [id number] Ethyl Esters 2 gm 09/07/18 12:15 09/07/18 12:27 Lovaza - PO 2 gm BID [facility] Administration Ranitidine HCl 150 mg 09/06/18 01:00 09/07/18 09:15 Zantac - PO 150 mg BID [facility] Administration Ranolazine 500 mg 09/05/18 22:00 09/07/18 09:15 Ranexa - PO 500 mg BID [facility] Administration Sodium Chloride 2 spray 09/05/18 16:56 09/07/18 09:16 [place] Nasal [place] - NS 2 sprays Q8H PRN Administration NASAL CONGESTION ASSESSMENT/PLAN: Patient is a 57 year old male with significant PMHx IDDM (on insulin pump), HTN , HLD, CAD s/p CABG and s/p AICD, CHF, Aortic stenosis, CKD, recently admitted with septic shock from left second toe cellulitis/osteomyelitis, NSTEMI (trop peak 37.6) hospital course complicated by volume overload requiring Lasix/ dobutamine drip, later with worsening HECTOR, requiring few sessions of HD. Patient was discharged on IV Ceftriaxone and Turosemide. Patient returned due to worsening shortness of breath fluid overload. Patient found to be in acute on chronic CHF and admitted to telemetry for further monitoring and evaluation. #Acute on Chronic Systolic CHF -Lasix 40mg IVP daily -Continue BB and Statin, No ELROY/ARB due to CKD -If no improvement, will defer to nephrology if patient requires dialysis -Strict I&O's -Daily weights #CKD Stage IV -Continue Phoslo -Avoid nephrotoxic drugs -Continue ProCrit for anemia TID -No urgent [employer] #Left second digit due to Osteomyelitis -Continue IV Ceftriaxone 2gm daily. Will need 6 week course, as per ID -ID consult placed #HTN-controlled -Continue Coreg 25 mg PO BID and Norvasc 5mg daily #IDDMII -Continue Levemir 20 Units. -ISS -BGM -Watch for hypoglycemic episodes #CAD s/p CABG, ICD, PCI -Continue Plavix -Continue baby ASA -Continue Ranexa #FEN -No Fluids -Eelectrolytes wnl -Diabetic diet #Prophylaxis -Heparin sq TID for DVT -Ranitidine 150 mg BID for GI #Disposition -Full code -Continue to Diurese. Likely needs 24-48 hours Dianne Jefferson MD-[id number] Visit type - Emergency Visit Emergency Visit: Yes ED Registration Date: 09/05/18 Care time: The patient presented to the Emergency Department on the above date and was hospitalized for further evaluation of their emergent condition. - New Patient This patient is new to me today: No - Critical Care Critical Care patient: No
--- NOTE | 2018-09-07 21:18 | PN ---
Progress Note (short form) - Note Progress Note: Renal follow up for CKD and Volume overload Pt seen and examined at the bedside feels better, cough is resolved leg edema is improved no orthopnea making more urine Vital Signs Temperature 97.8 F 09/07/18 14:00 Pulse Rate 73 09/07/18 14:00 Respiratory Rate 20 09/07/18 08:42 Blood Pressure 143/76 09/07/18 14:00 O2 Sat by Pulse Oximetry (%) 96 09/07/18 07:33 NAD awake and alert neck supple, no jVD RRR, No M/R Dec BS soft, obese, NT/ND + edema in LE CBC, BMP 09/07/18 05:30 09/07/18 05:30 Current Medications Acetaminophen (Tylenol -) 650 mg PO Q6H PRN PRN Reason: PAIN LEVEL 1-5 Last Admin: 09/07/18 14:55 Dose: 650 mg Amlodipine Besylate (Norvasc -) 5 mg PO DAILY [facility] Last Admin: 09/07/18 09:15 Dose: 5 mg Aspirin (Ecotrin -) 81 mg PO DAILY [facility] Last Admin: 09/07/18 09:15 Dose: 81 mg Atorvastatin Calcium (Lipitor -) 80 mg PO HS [facility] Last Admin: 09/06/18 21:24 Dose: 80 mg Carvedilol (Coreg -) 25 mg PO BID [facility] Last Admin: 09/07/18 09:15 Dose: 25 mg Clopidogrel Bisulfate (Plavix -) 75 mg PO DAILY [facility] Last Admin: 09/07/18 09:15 Dose: 75 mg Fluticasone Propionate (Flonase -) 1 spray NS BID [facility] Last Admin: 09/07/18 09:16 Dose: 1 spray Furosemide (Lasix Injection -) 40 mg IVPUSH AM [facility] Last Admin: 09/07/18 06:34 Dose: 40 mg Heparin Sodium (Porcine) (Heparin -) 5,000 unit SQ TID [facility] Last Admin: 09/07/18 14:37 Dose: Not Given Ceftriaxone Sodium 2 gm/ (Dextrose) 100 mls @ 200 mls/hr IVPB DAILY [facility]; Protocol Last Admin: 09/07/18 10:35 Dose: 200 mls/hr Insulin Aspart (Novolog Vial Sliding Scale -) 1 vial SQ ACHS [facility]; Protocol Last Admin: 09/07/18 18:53 Dose: 6 units Insulin Detemir (Levemir Vial) 28 units SQ HS [facility] Last Admin: 09/06/18 21:24 Dose: 28 units Mywjw-6-Aesh Ethyl Esters (Lovaza -) 2 gm PO BID [facility] Last Admin: 09/07/18 12:27 Dose: 2 gm Ranitidine HCl (Zantac -) 150 mg PO BID [facility] Last Admin: 09/07/18 09:15 Dose: 150 mg Ranolazine (Ranexa -) 500 mg PO BID [facility] Last Admin: 09/07/18 09:15 Dose: 500 mg Sodium Chloride ([place] Nasal [place] -) 2 spray NS Q8H PRN PRN Reason: NASAL CONGESTION Last Admin: 09/07/18 09:16 Dose: 2 sprays 57 year old with CKD stage 4, CAD s/p CABG, HLD, DM with recent admission with sepsis from LE osteomylitis/cellulitis complicated by renal failure requiring dialysis with improvement in renal function now presents from rehab with CHF. #CKD stage 4/5 #CHF exacerbation #Hypertension #DM #Osteomylitis Renal function remains stable Continue IV Lasix as needed to obtain evolemia trend renal function and electrolytes daily Continue Abx Thank you Will follow Jose Manuel Pendleton DO
[2018-09-07] MEDS: ATORVASTATIN CA 80 MG TABLET (FP) PO SCH (21:25)
[2018-09-07] MEDS: INSULIN (LEVEMIR) 100 UNITS/ML UNITS SQ SCH (21:34)
[2018-09-08] MEDS ORDERED: guaiFENesin/CODEINE 5 ML UNIT-DOSE CUPS PO PRN (00:18)
[2018-09-08] MEDS: INSULIN SLIDING SCALE (NOVOLOG) 1 VIAL SQ SCH ×4 (06:36→22:26)
[2018-09-08] MEDS: HEPARIN NA (PORCINE) 5,000 UNITS/ML 1ML VIAL SQ SCH ×3 (06:36→22:21)
[2018-09-08] MEDS: FUROSEMIDE 40 MG/4 ML INJECTABLE VIAL IVPUSH SCH (06:36)
[2018-09-08 06:44] LABS: BASO % 0.9 % (0-2.0); EOS % 3.9 % (0-4.5); HEMATOCRIT 23.9 % (35.4-49); HEMOGLOBIN 8.2 GM/dL (11.7-16.9); LYMPH % 13.9 % (8-40); MCH 30.8 pg (25.7-33.7); MCHC 34.4 g/dl (32.0-35.9); MEAN CELL VOLUME 89.6 fl (80-96); MEAN PLT VOLUME 6.3 fl (7.5-11.1); NEUT % 71.3 % (42.8-82.8); PLATELET COUNT 219 K/MM3 (134-434); RBC 2.67 M/mm3 (4.00-5.60); RDW 18.1 % (11.9-15.9); WHITE BLOOD COUNT 4.5 K/mm3 (4.0-10.0)
[2018-09-08 07:30] LABS: ANION GAP 8 MMOL/L (8-16); BLOOD UREA NITROGEN 72 mg/dL (7-18); CALCIUM 8.1 mg/dL (8.5-10.1); CHLORIDE 106 mmol/L (98-107); CO2 28 mmol/L (21-32); CREATININE 3.6 mg/dL (0.55-1.3); GLUCOSE,RANDOM 155 mg/dL (74-106); MAGNESIUM 1.9 mg/dL (1.8-2.4); PHOSPHOROUS 4.4 mg/dL (2.5-4.9); POTASSIUM 3.9 mmol/L (3.5-5.1); SODIUM 142 mmol/L (136-145)
[2018-09-08] MEDS ORDERED: DEXTROSE 5%-WATER 100 ML IVPB ONE (08:59)
[2018-09-08] MEDS: RANOLAZINE E.R. 500 MG TABLET (FP) PO SCH ×2 (10:27→22:21)
[2018-09-08] MEDS: CEFTRIAXONE 2 GM in DEXTROSE 5%-WATER 100 ML IVPB SCH (10:27)
[2018-09-08] MEDS: RANITIDINE HCL 150 MG TABLET (FP) PO SCH ×2 (10:27→22:21)
[2018-09-08] MEDS: ASPIRIN COATED 81 MG TABLET.EC PO SCH (10:28)
[2018-09-08] MEDS: CLOPIDOGREL BISULFATE 75 MG TABLET (FP) PO SCH (10:28)
[2018-09-08] MEDS: CARVEDILOL 25 MG TABLET (FP) PO SCH ×2 (10:28→22:21)
[2018-09-08] MEDS: OMEGA-3 ACID ETHYL ESTERS (FATTY-ACIDS) 1 GM CAPSULE (FP) PO SCH ×2 (10:28→22:21)
[2018-09-08] MEDS: FLUTICASONE PROP 0.05% 16 GM NASAL SPRAY NS SCH ×2 (10:28→22:25)
[2018-09-08] MEDS: amLODIPine BESYLATE 5 MG TABLET (FP) PO SCH (10:28)
--- NOTE | 2018-09-08 11:19 | PN ---
Physical Exam: SUBJECTIVE: Patient seen and examined by me at bedside. No acute events overnight Patient denies shortness of breath. Denies any fever, chills, nausea, vomiting, abdominal pain, chest pain, palpitations, headaches, dysuria, hematuria OBJECTIVE: Vital Signs Period Temp Pulse Resp BP Sys/Gallo Pulse Ox Last 24 Hr 97.5 F-98.8 F 71-75 20-20 120-146/66-77 100 GENERAL: The patient is awake, alert, and fully oriented, in no acute distress. EYES: Sclera anicteric, conjunctiva clear. No ptosis. ENT: Moist mucous membranes. LUNGS: Decreased breath sounds with no wheezes, no crackles, no accessory muscle use. HEART: Regular rate and rhythm, normal s1 and s2 (+) LOAN 2/6 ABDOMEN: Soft, Obese, nontender, nondistended, normoactive bowel sounds. EXTREMITIES: trace pitting edema bilaterally with bilateral leg swelling L>R (+ ) erythema and tenderness of left 2nd toe Laboratory Results 09/08/18 05:30 09/08/18 05:30 09/08/18 05:30 Phosphorus 4.4 Magnesium 1.9 Intake & Output 09/07/18 09/07/18 09/08/18 11:59 23:59 11:59 Intake Total 380 50 Balance 380 50 Weight 125.01 kg 124.647 kg Intake: IVPB 50 Oral 380 Other: Voiding Method Toilet Toilet Toilet # Unmeasured Voids Void 1 2 Weight Measurement Method Standing Scale Active Medications Generic Name Dose Route Start Last Admin Trade Name Freq PRN Reason Stop Dose Admin Acetaminophen 650 mg 09/05/18 16:50 09/07/18 21:25 Tylenol - PO 650 mg Q6H PRN Administration PAIN LEVEL 1-5 Amlodipine Besylate 5 mg 09/06/18 10:00 09/08/18 10:28 Norvasc - PO 5 mg DAILY [facility] Administration Aspirin 81 mg 09/06/18 10:09/08/18 10:28 Ecotrin - PO 81 mg DAILY [facility] Administration Atorvastatin Calcium 80 mg 09/05/18 22:00 09/07/18 21:25 Lipitor - PO 80 mg HS [facility] Administration Carvedilol 25 mg 09/05/18 22:00 09/08/18 10:28 Coreg - PO 25 mg BID [facility] Administration Clopidogrel Bisulfate 75 mg 09/06/18 10:00 09/08/18 10:28 Plavix - PO 75 mg DAILY [facility] Administration Fluticasone Propionate 1 spray 09/05/18 22:00 09/08/18 10:28 Flonase - NS 1 spray BID [facility] Administration Furosemide 40 mg 09/07/18 07:00 09/08/18 06:36 Lasix Injection - IVPUSH 40 mg AM [facility] Administration Heparin Sodium (Porcine) 5,000 unit 09/05/18 22:00 09/08/18 06:36 Heparin - SQ 5,000 unit TID [facility] Administration Ceftriaxone Sodium 2 gm/ 100 mls @ 200 mls/hr 09/06/18 10:00 09/08/18 10:27 Dextrose IVPB 200 mls/hr DAILY [facility] Administration Protocol Insulin Aspart 1 vial 09/05/18 22:00 09/08/18 06:36 Novolog Vial Sliding Scale - SQ 2 units ACHS [facility] Administration Protocol Insulin Detemir 28 units 09/06/18 16:03 09/07/18 21:34 Levemir Vial SQ 28 units HS [facility] Administration Cndce-7-Vkgq Ethyl Esters 2 gm 09/07/18 12:15 09/08/18 10:28 Lovaza - PO 2 gm BID [facility] Administration Ranitidine HCl 150 mg 09/06/18 01:00 09/08/18 10:27 Zantac - PO 150 mg BID [facility] Administration Ranolazine 500 mg 09/05/18 22:00 09/08/18 10:27 Ranexa - PO 500 mg BID [facility] Administration Sodium Chloride 2 spray 09/05/18 16:56 09/07/18 09:16 [place] Nasal [place] - NS 2 sprays Q8H PRN Administration NASAL CONGESTION ASSESSMENT/PLAN: Patient is a 57 year old male with significant PMHx IDDM (on insulin pump), HTN , HLD, CAD s/p CABG and s/p AICD, CHF, Aortic stenosis, CKD, recently admitted with septic shock from left second toe cellulitis/osteomyelitis, NSTEMI (trop peak 37.6) hospital course complicated by volume overload requiring Lasix/ dobutamine drip, later with worsening HECTOR, requiring few sessions of HD. Patient was discharged on IV Ceftriaxone and Turosemide. Patient returned due to worsening shortness of breath fluid overload. Patient found to be in acute on chronic CHF and admitted to telemetry for further monitoring and evaluation. #Acute on Chronic Systolic CHF -Lasix 40mg IVP daily -Continue BB and Statin, No ELROY/ARB due to CKD -If no improvement, will defer to nephrology if patient requires dialysis -Strict I&O's.. Making urine -Daily weights. Weight today 124kg from 125kg yesterday #CKD Stage IV -Continue Phoslo -Avoid nephrotoxic drugs -Continue ProCrit for anemia TID -No urgent [employer] #Left second digit due to Osteomyelitis -Continue IV Ceftriaxone 2gm daily. Will need 6 week course, as per ID -ID consult placed #HTN-controlled -Continue Coreg 25 mg PO BID and Norvasc 5mg daily #IDDMII -Continue Levemir 20 Units. -ISS -BGM -Watch for hypoglycemic episodes #CAD s/p CABG, ICD, PCI -Continue Plavix -Continue baby ASA -Continue Ranexa #FEN -No Fluids -Eelectrolytes wnl -Diabetic diet #Prophylaxis -Heparin sq TID for DVT -Ranitidine 150 mg BID for GI #Disposition -Full code -Continue to Diurese. Likely needs 24-48 hours Dianne Jefferson MD-[id number] Visit type - Emergency Visit Emergency Visit: Yes ED Registration Date: 09/05/18 Care time: The patient presented to the Emergency Department on the above date and was hospitalized for further evaluation of their emergent condition. - New Patient This patient is new to me today: No - Critical Care Critical Care patient: No
[2018-09-08 12:33] VITALS: BMI 42.9
[2018-09-08] MEDS ORDERED: INSULIN (NOVOLOG) ASPART 100 UNITS/ML 10ML VIAL ONE (13:07)
--- NOTE | 2018-09-08 16:22 | PN ---
Teaching Attending Note Name of Resident: Dianne Jefferson ATTENDING PHYSICIAN STATEMENT I saw and evaluated the patient. I reviewed the resident's note and discussed the case with the resident. I agree with the resident's findings and plan as documented. SUBJECTIVE: Mr Long says he is doing well. Still with some dyspnea on exertion but much improved. No cp or n/v OBJECTIVE: Last Vital Signs Temp Pulse Resp BP Pulse Ox 37.1 C 82 18 155/86 95 09/08/18 09:00 09/08/18 13:46 09/08/18 09:00 09/08/18 09:00 09/08/18 13:46 Gen: nad, obese Pulm: minimal bibasilar ronchi CV: rrr w/o m/r/g Abd: +bs, s/nt/nd Ext: trace BLE edema CBC, BMP 09/08/18 05:30 09/08/18 05:30 ASSESSMENT AND PLAN: -case d/w Dr Pendleton -safe to transition to oral torsemide -check pre and post to evaluate for home oxygen -continue rocephin -discharge planning, expect discharge tomorrow Problem List - Problems (1) Acute on chronic systolic (congestive) heart failure Code(s): I50.23 - ACUTE ON CHRONIC SYSTOLIC (CONGESTIVE) HEART FAILURE (2) Anemia Code(s): D64.9 - ANEMIA, UNSPECIFIED Qualifiers: Anemia type: unspecified type Qualified Code(s): D64.9 - Anemia, unspecified (3) CKD stage 4 due to type 2 diabetes mellitus Code(s): E11.22 - TYPE 2 DIABETES MELLITUS W DIABETIC CHRONIC KIDNEY DISEASE; N18.4 - CHRONIC KIDNEY DISEASE, STAGE 4 (SEVERE) (4) Diabetes mellitus Code(s): E11.9 - TYPE 2 DIABETES MELLITUS WITHOUT COMPLICATIONS Qualifiers: Diabetes mellitus type: type 2 Diabetes mellitus complication status: without complication (5) Gout Code(s): M10.9 - GOUT, UNSPECIFIED Qualifiers: Gout site: foot Gout etiology: due to renal impairment Chronicity: acute (6) HLD (hyperlipidemia) Code(s): E78.5 - HYPERLIPIDEMIA, UNSPECIFIED Qualifiers: Hyperlipidemia type: pure hypercholesterolemia Qualified Code(s): E78.00 - Pure hypercholesterolemia, unspecified (7) HTN (hypertension) Code(s): I10 - ESSENTIAL (PRIMARY) HYPERTENSION Qualifiers: Hypertension type: essential hypertension Qualified Code(s): I10 - Essential (primary) hypertension (8) ICD (implantable cardioverter-defibrillator) in place Code(s): Z95.810 - PRESENCE OF AUTOMATIC (IMPLANTABLE) CARDIAC DEFIBRILLATOR (9) Osteomyelitis Code(s): M86.9 - OSTEOMYELITIS, UNSPECIFIED
--- NOTE | 2018-09-08 16:41 | PN ---
Progress Note (short form) - Note Progress Note: Renal follow up for CKD and Volume overload Pt seen and examined at the bedside no acute complaints feels better making urine no sob, cardenas, orthopnea Vital Signs Temperature 98.8 F 09/08/18 09:00 Pulse Rate 82 09/08/18 13:46 Respiratory Rate 18 09/08/18 09:00 Blood Pressure 155/86 09/08/18 09:00 O2 Sat by Pulse Oximetry (%) 95 09/08/18 13:46 Intake & Output 09/05/18 09/06/18 09/07/18 09/08/18 23:59 23:59 23:59 23:59 Intake Total 1110 430 Output Total 700 Balance 410 430 Weight 124.738 kg 126.28 kg 125.01 kg 124.284 kg NAD awake and alert neck supple, no jVD RRR, No M/R Dec BS soft, obese, NT/ND + edema in LE CBC, BMP 09/08/18 05:30 09/08/18 05:30 Current Medications Acetaminophen (Tylenol -) 650 mg PO Q6H PRN PRN Reason: PAIN LEVEL 1-5 Last Admin: 09/07/18 21:25 Dose: 650 mg Amlodipine Besylate (Norvasc -) 5 mg PO DAILY [facility] Last Admin: 09/08/18 10:28 Dose: 5 mg Aspirin (Ecotrin -) 81 mg PO DAILY [facility] Last Admin: 09/08/18 10:28 Dose: 81 mg Atorvastatin Calcium (Lipitor -) 80 mg PO HS [facility] Last Admin: 09/07/18 21:25 Dose: 80 mg Carvedilol (Coreg -) 25 mg PO BID [facility] Last Admin: 09/08/18 10:28 Dose: 25 mg Clopidogrel Bisulfate (Plavix -) 75 mg PO DAILY [facility] Last Admin: 09/08/18 10:28 Dose: 75 mg Fluticasone Propionate (Flonase -) 1 spray NS BID [facility] Last Admin: 09/08/18 10:28 Dose: 1 spray Furosemide (Lasix Injection -) 40 mg IVPUSH AM [facility] Last Admin: 09/08/18 06:36 Dose: 40 mg Heparin Sodium (Porcine) (Heparin -) 5,000 unit SQ TID [facility] Last Admin: 09/08/18 15:30 Dose: 5,000 unit Ceftriaxone Sodium 2 gm/ (Dextrose) 100 mls @ 200 mls/hr IVPB DAILY [facility]; Protocol Last Admin: 09/08/18 10:27 Dose: 200 mls/hr Insulin Aspart (Novolog Vial Sliding Scale -) 1 vial SQ ACHS [facility]; Protocol Last Admin: 09/08/18 13:12 Dose: 6 units Insulin Detemir (Levemir Vial) 28 units SQ HS [facility] Last Admin: 09/07/18 21:34 Dose: 28 units Mskei-8-Qver Ethyl Esters (Lovaza -) 2 gm PO BID [facility] Last Admin: 09/08/18 10:28 Dose: 2 gm Ranitidine HCl (Zantac -) 150 mg PO BID [facility] Last Admin: 09/08/18 10:27 Dose: 150 mg Ranolazine (Ranexa -) 500 mg PO BID [facility] Last Admin: 09/08/18 10:27 Dose: 500 mg Sodium Chloride ([place] Coul[place] Nasal Coulters -) 2 spray NS Q8H PRN PRN Reason: NASAL CONGESTION Last Admin: 09/07/18 09:16 Dose: 2 sprays 57 year old with CKD stage 4, CAD s/p CABG, HLD, DM with recent admission with sepsis from LE osteomylitis/cellulitis complicated by renal failure requiring dialysis with improvement in renal function now presents from rehab with CHF. #CKD stage 4/5 #CHF exacerbation #Hypertension #DM #Osteomylitis Renal function improved and stable no emergent indication for KILN TESTER Continue Lasix, can convert to PO torsemide discharge planning as per primary Jose Manuel Pendleton DO
[2018-09-08] MEDS: ACETAMINOPHEN 325 MG TABLET (FP) PO PRN (20:15)
[2018-09-08] MEDS: ATORVASTATIN CA 80 MG TABLET (FP) PO SCH (22:21)
[2018-09-08] MEDS: INSULIN (LEVEMIR) 100 UNITS/ML UNITS SQ SCH (22:29)
[2018-09-09 01:33] VITALS: TEMP 97.8
[2018-09-09] MEDS: INSULIN SLIDING SCALE (NOVOLOG) 1 VIAL SQ SCH (06:16)
[2018-09-09] MEDS: HEPARIN NA (PORCINE) 5,000 UNITS/ML 1ML VIAL SQ SCH (06:16)
[2018-09-09] MEDS: FUROSEMIDE 40 MG/4 ML INJECTABLE VIAL IVPUSH SCH (06:16)
[2018-09-09 07:43] LABS: BASO % 0.9 % (0-2.0); EOS % 4.2 % (0-4.5); HEMATOCRIT 25.9 % (35.4-49); HEMOGLOBIN 8.8 GM/dL (11.7-16.9); LYMPH % 13.6 % (8-40); MCH 30.6 pg (25.7-33.7); MEAN CELL VOLUME 90.1 fl (80-96); MEAN PLT VOLUME 6.7 fl (7.5-11.1); MONO % 8.1 % (3.8-10.2); NEUT % 73.2 % (42.8-82.8); PLATELET COUNT 236 K/MM3 (134-434); RBC 2.87 M/mm3 (4.00-5.60); RDW 18.3 % (11.9-15.9); WHITE BLOOD COUNT 4.8 K/mm3 (4.0-10.0)
[2018-09-09 08:15] LABS: ALBUMIN 3.1 g/dl (3.4-5.0); ALK PHOS 88 U/L (45-117); ANION GAP 7 MMOL/L (8-16); BILIRUBIN,TOTAL 0.7 mg/dL (0.2-1); BLOOD UREA NITROGEN 74 mg/dL (7-18); CALCIUM 8.5 mg/dL (8.5-10.1); CHLORIDE 104 mmol/L (98-107); CO2 29 mmol/L (21-32); CREATININE 3.7 mg/dL (0.55-1.3); GLUCOSE,RANDOM 196 mg/dL (74-106); MAGNESIUM 1.9 mg/dL (1.8-2.4); PHOSPHOROUS 4.6 mg/dL (2.5-4.9); POTASSIUM 4.5 mmol/L (3.5-5.1); SGOT/AST 16 U/L (15-37); SGPT/ALT 22 U/L (13-61); SODIUM 141 mmol/L (136-145); TOT PROT 7.7 g/dl (6.4-8.2)
[2018-09-09] MEDS ORDERED: DEXTROSE 5%-WATER 100 ML IVPB ONE (08:54)
--- NOTE | 2018-09-09 09:10 | DS ---
Physical Exam: SUBJECTIVE: Patient seen and examined by me at bedside No acute events overnight Patient offers no complaints. Denies any fever, chills, nausea, vomiting, abdominal pain, chest pain, palpitations, headaches, dysuria, hematuria OBJECTIVE: Vital Signs Period Temp Pulse Resp BP Sys/Gallo Pulse Ox Last 24 Hr 97.8 F-98.5 F 73-82 18-20 139-170/80-87 94-95 PHYSICAL EXAM GENERAL: The patient is awake, alert, and fully oriented, in no acute distress. EYES: Sclera anicteric, conjunctiva clear. No ptosis. ENT: Moist mucous membranes. LUNGS: Decreased breath sounds with no wheezes, no crackles, no accessory muscle use. HEART: Regular rate and rhythm, normal s1 and s2 (+) LOAN 2/6 ABDOMEN: Soft, Obese, nontender, nondistended, normoactive bowel sounds. EXTREMITIES: trace pitting edema bilaterally with bilateral leg swelling L>R (+ ) erythema and tenderness of left 2nd toe LABS Laboratory Results 09/09/18 06:18 09/09/18 06:18 09/09/18 06:18 Phosphorus 4.6 Magnesium 1.9 AST 16 ALT 22 Alkaline Phosphatase 88 PRE-HOSPITAL COURSE: Patient is a 57 year old male with significant PMHx IDDM (on insulin pump), HTN , HLD, CAD s/p CABG and s/p AICD, CHF, Aortic stenosis, CKD, recently admitted with septic shock from left second toe cellulitis/osteomyelitis, NSTEMI (trop peak 37.6) hospital course complicated by volume overload requiring Lasix/ dobutamine drip, later with worsening HECTOR, requiring few sessions of HD. Patient was discharged on IV Ceftriaxone and Turosemide. Patient returned due to worsening shortness of breath fluid overload due to not receiving his diuretic, Torsemide, at the [facility]. Patient found to be in acute on chronic CHF and admitted to telemetry for further monitoring and evaluation. HOSPITAL COURSE: Throughout hospitalization, patient was seen by soil field technician and placed back on IV Lasix due to hypervolemia causing acute on chronic systolic CHF. Patient had daily weights done with strict I&O's and responded appropriately to IV lasix. Patient was also receiving antibiotics for his Left two osteomyelitis while here. Patient was then evaluated by respiratory therapy and recommendations were done for 3L of 02 at home. His respiratory status overall improved with diuresis and patient to go home with oxygen at home. Home infusion for IV antibiotics for the osteomyelitis has been set up until . Patient will return home with Torsemide 40mg daily with discontinuation of Lasix. Patient was also started on Levemir 20 units at night, as per endo recommendations. Patient clinically improved is medically cleared for discharge. Date of Admission:09/05/18 Date of Discharge: 09/09/18 Minutes to complete discharge: 45 Discharge Summary Reason For Visit: ACUTE ON CHRONIC CONGESTIVE FAILUE Current Active Problems CHF exacerbation (Acute) Osteomyelitis (Acute) Condition: Stable - Instructions Diet, Activity, Other Instructions: RECOMMENDATIONS: -You were seen here for shortness of breath and found to have fluids in your lungs because of the medication Torsemide not given. The medication is a water pill that helps remove the excessive fluids in your body. -You were also seen again for your kidney failure by the soil field technician, Dr. Pendleton. You will need to continue to follow up with Dr. Pendleton to prepare you for future dialysis and manage your kidneys. -You were previously here for your toe infection that you will be taking IV antibiotics for. You will be receiving IV antibiotics at home by a company everyday until 10/02/2018. You will need to follow up with Dr. Barakat for weekly blood work while you are on the antibiotics. -Your liver tests were normal in the hospital. -You will also be sent home with home oxygen as you are requiring 3L. -Please apply Bactroban to your toe and wrap with the gauze provided to you. -Continue low fat low sodium renal diet as tolerated. FOLLOW UP: -Primary Care Physician in 1 week -Dr. Pendleton in 1 week -Dr. Arredondo in 1 week -Follow up with Dr. Burgos at the wound center in this hospital (5th floor). Please call [phone] to make an appointment. -You will also need to follow up with your Tub Mender within a week to monitor and make any adjustments for your insulin medication. -Please follow up with your Home Office Representative, Dr. Mullen, within a week as you had your medication Entresto discontinued and he will need to reassess you for further management. -You will also be followed by Vascular Surgeon, Dr. Khoury, to start vein mapping of your arm for future dialysis. His information will be provided in the Discharge packet. MEDICATIONS: -You will be taking a daily antibiotic through IV for a total of 6 weeks, last day 10/02/2018. You will need repeat imaging of your left leg and podiatry Dr. Burgos input before completion of antibiotic treatment to determine further plan. -Please follow up with Dr. Barakat for repeat weekly labs at his office. -Torsemide will remain 40 mg daily. Daily weights and notify your doctor right away if weight gain > 3 lbs in 2 weeks or any decreased urination noted. -Resume insulin pump with blood sugar checks before meals and at bedtime. You will also be on Levemir 20 units at night. A prescription has been sent to your pharmacy. Please pick it up and follow up with your float phlebotomist. -You will also be receiving Epogen weekly by your soil field technician, Please make an appointment with your soil field technician, Dr. Pendleton for these injections and repeat labs. FOLLOW UP LABS: Weekly BMP (basic metabolic panel), CBC (complete blood count), LFTs (liver function tests) while on antibiotics. Routine tunnelled catheter care and removal once antibiotics are completed per and Dr. Burgos's instructions If you have any worsening pain, dark or bloody stools, vomiting, inability to eat, leg swelling/redness/fevers, chills, decreased urination, trouble breathing or any new concerns, please call 911 or come to ED. Referrals: Jesus Barakat MD [Staff Physician] - Walker Burgos MD [Staff Physician] - Micah Melo MD [Staff Physician] - Bridgett Mullen MD [Staff Physician] - Armando Arredondo MD [Staff Physician] - Jose Manuel Pendleton MD [Staff Physician] - Marco Ricketts MD [Staff Physician] - Kevin Khoury MD [Staff Physician] - Disposition: HOME - Home Medications Comprehensive Discharge Medication List: Ambulatory Orders Ranolazine [Ranexa] 500 mg PO BID 07/13/13 Ranitidine [Zantac -] 150 mg PO BID 06/19/17 Aspirin [ASA -] 81 mg PO DAILY 09/28/17 Nitroglycerin [Nitrostat] 0.4 mg SL PRN PRN 09/28/17 Carvedilol [Coreg -] 25 mg PO BID #60 tablet 09/30/17 Atorvastatin Ca [Lipitor] 80 mg PO HS 06/01/18 Ergocalciferol (Vitamin D2) [Vitamin D2] 50,000 unit PO WEEKLY 06/01/18 [place]-3 Fatty Acids [[place]-3] 1,000 mg PO BID 06/01/18 Clopidogrel Bisulfate [Plavix -] 75 mg PO DAILY 30 Days #0 tab 06/08/18 Amlodipine Besylate [Norvasc -] 5 mg PO DAILY tablet 09/02/18 Calcium Acetate [Phoslo -] 1,334 mg PO TIDCM capsule 09/02/18 Ceftriaxone [Rocephin -] 2 gm IVPB DAILY vial 09/02/18 Fluticasone Prop 0.05% Nasal [Flonase -] 1 spray NS BID spray 09/02/18 Guaifenesin AC [Robitussin AC -] 5 ml PO Q8H PRN liquid MDD 5 ml 09/02/18 Insulin Sliding Scale [Novolog Vial Sliding Scale -] 1 vial SQ HS units Insulin Sliding Scale [Novolog Vial Sliding Scale -] 1 vial SQ TIDAC units Sodium Chloride Nasal [place] [[place] Nasal [place] -] 2 spray NS TID PRN spray 09/02/18 Torsemide [Demadex -] 40 mg PO DAILY tablet 09/02/18 Acetaminophen 650 mg PO ASDIR PRN 09/05/18 Epoetin Masood [Epogen] 10,000 unit IJ WEEKLY 09/05/18 Insulin (Levemir) [Levemir Vial] 28 units SQ HS #2 vial 09/09/18 This patient is new to me today: No Emergency Visit: Yes ED Registration Date: 09/05/18 Care time: The patient presented to the Emergency Department on the above date and was hospitalized for further evaluation of their emergent condition. Critical Care patient: No - Discharge Referral Referred to [facility] No
[2018-09-09] MEDS: CEFTRIAXONE 2 GM in DEXTROSE 5%-WATER 100 ML IVPB SCH (09:12)
[2018-09-09] MEDS: FLUTICASONE PROP 0.05% 16 GM NASAL SPRAY NS SCH (09:13)
[2018-09-09] MEDS: OMEGA-3 ACID ETHYL ESTERS (FATTY-ACIDS) 1 GM CAPSULE (FP) PO SCH (09:13)
[2018-09-09] MEDS: RANITIDINE HCL 150 MG TABLET (FP) PO SCH (09:13)
[2018-09-09] MEDS: CLOPIDOGREL BISULFATE 75 MG TABLET (FP) PO SCH (09:13)
[2018-09-09] MEDS: amLODIPine BESYLATE 5 MG TABLET (FP) PO SCH (09:13)
[2018-09-09] MEDS: ASPIRIN COATED 81 MG TABLET.EC PO SCH (09:13)
[2018-09-09] MEDS: CARVEDILOL 25 MG TABLET (FP) PO SCH (09:13)
[2018-09-09] MEDS: RANOLAZINE E.R. 500 MG TABLET (FP) PO SCH (09:13)
[2018-09-09] MEDS ORDERED: TORSEMIDE 20 MG TABLET (FP) PO SCH (10:00)
[2018-09-09 10:17] VITALS: BP 141/70; PULSE 81
--- NOTE | 2018-09-09 13:16 | PN ---
Teaching Attending Note Name of Resident: Dianne Jefferson ATTENDING PHYSICIAN STATEMENT I saw and evaluated the patient. I reviewed the resident's note and discussed the case with the resident. I agree with the resident's findings and plan as documented. SUBJECTIVE: OBJECTIVE: ASSESSMENT AND PLAN: Problem List - Problems (1) Acute on chronic systolic (congestive) heart failure Code(s): I50.23 - ACUTE ON CHRONIC SYSTOLIC (CONGESTIVE) HEART FAILURE (2) Anemia Code(s): D64.9 - ANEMIA, UNSPECIFIED Qualifiers: Anemia type: unspecified type Qualified Code(s): D64.9 - Anemia, unspecified (3) CKD stage 4 due to type 2 diabetes mellitus Code(s): E11.22 - TYPE 2 DIABETES MELLITUS W DIABETIC CHRONIC KIDNEY DISEASE; N18.4 - CHRONIC KIDNEY DISEASE, STAGE 4 (SEVERE) (4) Diabetes mellitus Code(s): E11.9 - TYPE 2 DIABETES MELLITUS WITHOUT COMPLICATIONS Qualifiers: Diabetes mellitus type: type 2 Diabetes mellitus complication status: without complication (5) Gout Code(s): M10.9 - GOUT, UNSPECIFIED Qualifiers: Gout site: foot Gout etiology: due to renal impairment Chronicity: acute (6) HLD (hyperlipidemia) Code(s): E78.5 - HYPERLIPIDEMIA, UNSPECIFIED Qualifiers: Hyperlipidemia type: pure hypercholesterolemia Qualified Code(s): E78.00 - Pure hypercholesterolemia, unspecified (7) HTN (hypertension) Code(s): I10 - ESSENTIAL (PRIMARY) HYPERTENSION Qualifiers: Hypertension type: essential hypertension Qualified Code(s): I10 - Essential (primary) hypertension (8) ICD (implantable cardioverter-defibrillator) in place Code(s): Z95.810 - PRESENCE OF AUTOMATIC (IMPLANTABLE) CARDIAC DEFIBRILLATOR (9) Osteomyelitis Code(s): M86.9 - OSTEOMYELITIS, UNSPECIFIED
== END 2018-09-09 13:12 | disposition home or self-care (01) | DRG 291 ==
LOC: JER 13:37 → JERBED 16:11 → J4W 09-06 00:21
PROVIDERS: ADMIT Hospitalist; ATTEND Internal Medicine
DX: I13.0 Hypertensive heart and chronic kidney disease with heart failure and stage 1 through stage 4 chronic kidney disease, or unspecified chronic kidney disease (principal); I50.23 Acute on chronic systolic (congestive) heart failure; N18.4 Chronic kidney disease, stage 4 (severe); M86.9 Osteomyelitis, unspecified; L03.116 Cellulitis of left lower limb; E11.22 Type 2 diabetes mellitus with diabetic chronic kidney disease; I25.10 Atherosclerotic heart disease of native coronary artery without angina pectoris; Z98.61 Coronary angioplasty status; Z95.1 Presence of aortocoronary bypass graft; E78.5 Hyperlipidemia, unspecified; D64.9 Anemia, unspecified; M10.9 Gout, unspecified; Z95.810 Presence of automatic (implantable) cardiac defibrillator; E87.70 Fluid overload, unspecified
CPT/HCPCS: 36415; 71045-TC-FY; 71250-TC; 80048; 80053; 81003; 81015; 82962; 83735; 83880; 84100; 84484; 85025; 85379; 85610; 85730; 93005; 93010; 94761; 99284-25; J1644

== ENCOUNTER 2018-10-01 20:47 | Emergency (ER) | payer BC ==
--- NOTE | 2018-10-01 20:59 | PDOC ---
Rapid Medical Evaluation Time Seen by Provider: 10/01/18 20:55 Medical Evaluation: Allergies Allergy/AdvReac Type Severity Reaction Status Date / Time No Known Allergies Allergy Verified 08/17/18 13:51 10/01/18 20:56 I performed a brief in-person evaluation of this patient. Chief complaint: Discomfort at PICC line site, directed to come in for eval by Dr. Lemus. Pertinent physical exam findings: Chest wall tenderness around PICC site. No erythema or discharge. I have ordered the following: Deferred for ED. The patient will proceed to the ED for further evaluation. Discharge Disposition - Diagnosis Complication of central venous catheter - Referrals - Patient Instructions - Post Discharge Activity
[2018-10-01 21:01] VITALS: BP 145/81; PULSE 95; TEMP 98.7; BMI 37.3
[2018-10-01] MEDS ORDERED: ALBUTEROL SO4 2.5/IPRATROPIUM 0.5 INH SOL 3 ML VIAL.NEB. NEB ONE (22:50)
--- NOTE | 2018-10-01 22:52 | PDOC ---
History of Present Illness - General Chief Complaint: PICC Line Insertion Stated Complaint: PICC LINE Time Seen by Provider: 10/01/18 20:55 History Source: Patient - History of Present Illness Initial Comments: 10/01/18 22:43 57 yr old man with IDDM, HTN, CABG s/p AICD, CKD, COPD on 3L O2 at home, currently being treated for left 2nd toe osteomyelitis presents with intermittent nonradiating pain internally at PICC line site since 1pm today. It started in his pie dough roller's office when he received a nebulizer treatment. Pain continued when he left the office. says the VNS service was coming every 3 days to change the dressing, but did not come yesterday because pt was due to have line removed on 10/03. also noticed that the closure clip on the PICC line kept popping open yesterday and today and pt notes there was blood in the external portion of the catheter when he exhaled. has been giving him his antibiotics through the line daily. As insertion note, pt was supposed to return 10-14 days later to remove sutures but he did not. denies fever, cough, palpitations, abdominal pain, diarrhea, constipation, rashes. since receiving the nebs treatment, pt has not needed supplemental o2 to breathe comfortably. Past History - Past Medical History Allergies/Adverse Reactions: Allergies Allergy/AdvReac Type Severity Reaction Status Date / Time No Known Allergies Allergy Verified 10/01/18 23:57 Home Medications: Ambulatory Orders RX: Ranolazine [Ranexa] 500 mg PO BID 07/13/13 RX: Ranitidine [Zantac -] 150 mg PO BID 06/19/17 RX: Aspirin [ASA -] 81 mg PO DAILY 09/28/17 RX: Nitroglycerin [Nitrostat] 0.4 mg SL PRN PRN 09/28/17 RX: Carvedilol [Coreg -] 25 mg PO BID #60 tablet 09/30/17 RX: Atorvastatin Ca [Lipitor] 80 mg PO HS 06/01/18 RX: Ergocalciferol (Vitamin D2) [Vitamin D2] 50,000 unit PO WEEKLY 06/01/18 RX: [place]-3 Fatty Acids [[place]-3] 1,000 mg PO BID 06/01/18 RX: Clopidogrel Bisulfate [Plavix -] 75 mg PO DAILY 30 Days #0 tab 06/08/18 RX: Ceftriaxone [Rocephin -] 2 gm IVPB DAILY vial 09/02/18 RX: Fluticasone Prop 0.05% Nasal [Flonase -] 1 spray NS BID spray 09/02/18 RX: Guaifenesin AC [Robitussin AC -] 5 ml PO Q8H PRN liquid MDD 5 ml 09/02/18 RX: Sodium Chloride Nasal [place] [[place] Nasal [place] -] 2 spray NS TID PRN spray 09/02/18 RX: Acetaminophen 650 mg PO ASDIR PRN 09/05/18 Mupirocin Ointment [Bactroban] 1 applic TP BID #1 tube 09/09/18 RX: Amlodipine Besylate [Norvasc -] 5 mg PO DAILY #15 tablet 09/09/18 Collagenase Clostridium Hist. [Santyl] 90 gm TP DAILY #1 tube 09/28/18 RX: Insulin Pump/Infus. Set/Meter [Accu-Chek Combo System] 1 unit SCJ PRN RX: Torsemide [Demadex -] 60 mg PO DAILY 09/28/18 Anemia: Yes Asthma: No Cancer: No Cardiac Disorders: Yes (cad,mi Defibrilator) CVA: No COPD: No CHF: Yes Dementia: No Diabetes: Yes (IDDM) GI Disorders: No Disorders: No HTN: Yes Hypercholesterolemia: Yes Liver Disease: No Seizures: No Thyroid Disease: No - Surgical History Cardiac Surgery: Yes (CABG,ICD,CARD STENT X1, DEFIBRILLATOR) GI Surgery: Yes (INSULIN PUMP) Orthopedic Surgery: Yes (left knee arthoscopy) - Immunization History Immunization Up to Date: (UNKNOWN) - Suicide/Smoking/Psychosocial Hx Smoking History: Never smoked Have you smoked in the past 12 months: No Information on smoking cessation initiated: No Hx Alcohol Use: No Drug/Substance Use Hx: No Substance Use Type: None Hx Substance Use Treatment: No Review of Systems - Review of Systems Constitutional: No: Fever, Loss of Appetite, Unintentional Wgt. Loss HEENTM: No: Double Vision, Nose Congestion, Difficulty Swallowing Respiratory: No: Cough, Orthopnea, Shortness of Breath, SOB with Exertion, Productive cough, Hemoptysis Cardiac (ROS): Yes: Other (right sided pain under picc line). No: Edema, Irregular Heart Rate, Lightheadedness, Palpitations ABD/GI: No: Abdominal Distended, Constipated, Diarrhea, Difficulty Swallowing, Nausea, Vomiting : No: Dysuria, Frequency, Hematuria Musculoskeletal: No: Joint Pain, Joint Swelling, Muscle Pain, Muscle Weakness, Neck Pain, Joint Stiffness Integumentary: Yes: Lesions. No: Pruritus, Rash Neurological: No: Headache, Numbness, Tingling, Tremors, Weakness *Physical Exam - Vital Signs Last Vital Signs Temp Pulse Resp BP Pulse Ox 98.7 F 95 H 20 145/81 96 10/01/18 20:58 10/01/18 20:58 10/01/18 20:58 10/01/18 20:58 10/01/18 20:58 - Physical Exam General Appearance: Yes: Appropriately Dressed HEENT: positive: EOMI, PARISA, Normal Voice, Pharynx Normal, Hearing Grossly Normal Neck: positive: Trachea midline, Supple Respiratory/Chest: positive: Lungs Clear, Normal Breath Sounds. negative: Crackles, Rales, Rhonchi, Wheezing Cardiovascular: positive: Regular Rhythm, Regular Rate, S1, S2. negative: Murmur Vascular Pulses: Dorsalis-Pedis (R): 2+, Doralis-Pedis (L): 1+ Gastrointestinal/Abdominal: positive: Normal Bowel Sounds, Soft, Other (obese). negative: Tenderness Musculoskeletal: negative: CVA Tenderness Extremity: positive: Pedal Edema (on left foot upto ankle) Integumentary: positive: Moist, Other (left 2nd tose ). negative: Erythema, Jaundice, Rash, Ecchymosis Neurologic: positive: Fully Oriented, Alert Moderate Sedation - Procedure Monitoring Vital Signs: Procedure Monitoring Vital Signs Temperature 98.7 F 10/01/18 20:58 Pulse Rate 95 H 10/01/18 20:58 Respiratory Rate 20 10/01/18 20:58 Blood Pressure 145/81 10/01/18 20:58 O2 Sat by Pulse Oximetry (%) 96 10/01/18 20:58 ED Treatment Course - RADIOLOGY Radiology Studies Ordered: Category Date Time Status CHEST X-RAY PORTABLE* [RAD] Stat Radiology 10/01/18 22:40 Ordered Medical Decision Making - Medical Decision Making 10/01/18 23:06 check cxy for placement of catheter. VSS stable. catheter was flushed and pain resolved. cxy placement on my read appears to be adequately placed. family is okay with returning home to f/u as outpatient. *DC/Admit/Observation/Transfer Diagnosis at time of Disposition: Complication of central venous catheter Qualifiers: Device complication type: unspecified Encounter type: initial encounter Qualified Code(s): T82.9XXA - Unspecified complication of cardiac and vascular prosthetic device, implant and graft, initial encounter - Discharge Dispostion Disposition: HOME Condition at time of disposition: Improved Decision to Admit order: No - Referrals Referrals: Markell Pisano MD [Staff Physician] - Jesus Barakat MD [Staff Physician] - - Patient Instructions Printed Discharge Instructions: DI for Tunneled Dialysis Catheter Placement Additional Instructions: I suspect that when you had the pulmonary exam and you had blew air into the machine, you may have a mechanical displacement of the end tip of your tunneled catheter. After flushing the line with IV normal saline, your pain had improved. You can go home and use your catheter for antibiotics. If you notice that you have worsening pain or difficulties, please return to the ER. Follow up with your doctor. - Post Discharge Activity
--- NOTE | 2018-10-01 23:20 | PDOC ---
Attending Attestation - Resident Resident Name: Ponce Reed - ED Attending Attestation I have performed the following: I have examined & evaluated the patient, The case was reviewed & discussed with the resident, I agree w/resident's findings & plan, Exceptions are as noted - Medical Decision Making 10/01/18 23:25 A portion of this note was documented by scribe services under my direction. I have reviewed the details of the note, within reason, and agree with the documentation with the following case summary and management plan written by me. Patient treated in the ED. Nursing notes are reviewed and incorporated into the medical decision-making. Vital signs reviewed. Peripheral IV access obtained by the nurse, laboratory studies are drawn and sent, reviewed and interpreted by myself. Vital Signs Temp Pulse Resp BP Pulse Ox 98.7 F 95 H 20 145/81 96 10/01/18 20:58 10/01/18 20:58 10/01/18 20:58 10/01/18 20:58 10/01/18 20:58 57-year-old male with past medical history of coronary disease, pacemaker, chronic kidney disease, left second toe osteomyelitis currently with tunnel catheter right-sided chest presents with right chest pain. 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 While blowing hard, he started feel this unusual achy right-sided chest pain. Reproducible murmurs worsened with movement. Denies shortness of breath. Patient contacted his doctor who advised patient to the ER. The catheter site is clean and dry, with no signs of infection. I had infused normal saline through the catheter site, and now the pain has resolved. This may have been a mechanical issue that now resolved. Maybe it was from the blowing of air? I did speak to Dr. Lemus. The patient feels quite strongly that he would like to go home. Given that the patient would like to go home, the patient will be discharged with return precautions. I discussed the physical exam findings, ancillary test results and final diagnoses with the patient. I answered all of the patient's questions. The patient was satisfied with the care received and felt comfortable with the discharge plan and treatment plan. The patient will call their primary care physician within 24 hours to arrange follow-up and will return to the Emergency Department with any new, persistant or worsening symptoms. <Randell Cornejo - Last Filed: 10/01/18 23:20> - HPI HPI: The patient is a 57 year old male, with a significant PMH of IDDM (insulin pump) , HTN, hypercholesterolemia, CAD, CHF, CABG s/p ACID, CKD, COPD, who presents to the emergency department today complaining of internal pain at the PICC line insertion for one. 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 per patients , VNS service has been visiting every 3 days to change the dressing but did not come yesterday secondary to the line begin removed in 2 days. She also notes that the PICC closure clip has been popping open both yesterday and today, with blood on the external portion of the catheter on exhalation. Patients notes he has been taking antibiotics through the line daily. The patient denies chest pain, shortness of breath, headache and dizziness. Denies fever, chills, nausea, vomit, diarrhea and constipation. Denies dysuria, frequency, urgency and hematuria. Allergies: NKA Past surgical history: CABG, ICD, cardiac stent x1, defibrillator, insulin pump , left knee arthroscopy Social history: No reported PCP: Dr. Chandu Stevenson [employer] Lead: Dr. Jose Manuel Pendleton 10/01/18 23:33 - Physicial Exam PE: GENERAL: Awake, alert, and fully oriented, in no acute distress HEAD: No signs of trauma EYES: PERRLA, EOMI, sclera anicteric, conjunctiva clear ENT: Auricles normal inspection, hearing grossly normal, nares patent, oropharynx clear without exudates. Moist mucosa NECK: Normal ROM, supple, no lymphadenopathy, JVD, or masses LUNGS: +Tunnel catheter right chest wall is clean, dry, and intact. Breath sounds equal, clear to auscultation bilaterally. No wheezes, and no crackles HEART: Regular rate and rhythm, normal S1 and S2, no murmurs, rubs or gallops EXTREMITIES: Normal range of motion, no edema. No clubbing or cyanosis. No cords, erythema, or tenderness NEUROLOGICAL: Cranial nerves II through XII grossly intact. Normal speech, normal gait SKIN: Warm, Dry, normal turgor, no rashes or lesions noted. 10/01/18 23:33 - Medical Decision Making 10:15- spoke with Dr. Lemus's call service, awaiting call back 11:05- spoke with Dr. Lemus concerning's patient's care Documentation prepared by YOLETTE Barros, acting as electromedical equipment technician for Randell Cornejo MD. 10/01/18 23:34 <Diane Pollock - Last Filed: 10/01/18 23:35> *DC/Admit/Observation/Transfer - Discharge Dispostion Decision to Admit order: No <Randell Cornejo - Last Filed: 10/01/18 23:20> <Diane Pollock - Last Filed: 10/01/18 23:35> Diagnosis at time of Disposition: Complication of central venous catheter Qualifiers: Device complication type: unspecified Encounter type: initial encounter Qualified Code(s): T82.9XXA - Unspecified complication of cardiac and vascular prosthetic device, implant and graft, initial encounter - Discharge Dispostion Disposition: HOME Condition at time of disposition: Improved - Referrals Referrals: Jesus Barakat MD [Staff Physician] - Markell Pisano MD [Staff Physician] - - Patient Instructions Printed Discharge Instructions: DI for Tunneled Dialysis Catheter Placement Additional Instructions: I suspect that when you had the pulmonary exam and you had blew air into the machine, you may have a mechanical displacement of the end tip of your tunneled catheter. After flushing the line with IV normal saline, your pain had improved. You can go home and use your catheter for antibiotics. If you notice that you have worsening pain or difficulties, please return to the ER. Follow up with your doctor.
== END 2018-10-01 23:59 | disposition home or self-care (01) ==
LOC: JER 20:47
PROC: 3C1ZX8Z Irrigation of Indwelling Device using Irrigating Substance, External Approach (ICD-10-PCS; principal; 2018-10-01)
DX: T82.848A Pain due to vascular prosthetic devices, implants and grafts, initial encounter (principal); G89.18 Other acute postprocedural pain; I25.810 Atherosclerosis of coronary artery bypass graft(s) without angina pectoris; I13.0 Hypertensive heart and chronic kidney disease with heart failure and stage 1 through stage 4 chronic kidney disease, or unspecified chronic kidney disease; N18.9 Chronic kidney disease, unspecified; I50.89 Other heart failure; Z95.1 Presence of aortocoronary bypass graft; Z95.5 Presence of coronary angioplasty implant and graft; E11.9 Type 2 diabetes mellitus without complications; E11.69 Type 2 diabetes mellitus with other specified complication; Z79.4 Long term (current) use of insulin; Z96.41 Presence of insulin pump (external) (internal); J44.9 Chronic obstructive pulmonary disease, unspecified; Z95.810 Presence of automatic (implantable) cardiac defibrillator; M86.8X7 Other osteomyelitis, ankle and foot
CPT/HCPCS: 71045-TC-FY; 99281-25

== ENCOUNTER 2019-01-07 04:58 | Day surgery (SDC) | payer BC ==
[2019-01-04 09:33] VITALS: BMI 35.2
[2019-01-04 09:46] LABS: HEMATOCRIT 40.1 % (35.4-49); HEMOGLOBIN 13.3 GM/dL (11.7-16.9); MCH 31.8 pg (25.7-33.7); MCHC 33.1 g/dl (32.0-35.9); MEAN CELL VOLUME 95.8 fl (80-96); MEAN PLT VOLUME 7.3 fl (7.5-11.1); PLATELET COUNT 208 K/MM3 (134-434); RBC 4.19 M/mm3 (4.00-5.60); WHITE BLOOD COUNT 6.1 K/mm3 (4.0-10.0)
[2019-01-04 10:08] LABS: INR 0.89 (0.83-1.09); PROTHROMBIN TIME (PATIENT) 10.5 SEC (9.7-13.0)
[2019-01-04 10:11] LABS: ACTIVATED PTT 31.8 SECONDS (25.2-36.5)
[2019-01-04 10:45] LABS: ALBUMIN 3.4 g/dl (3.4-5.0); BILIRUBIN,TOTAL 0.4 mg/dL (0.2-1); CALCIUM 8.9 mg/dL (8.5-10.1); CREATININE 4.5 mg/dL (0.55-1.3); POTASSIUM 3.3 mmol/L (3.5-5.1); TOT PROT 8.1 g/dl (6.4-8.2)
[2019-01-07] MEDS ORDERED: HEPARIN NA (PORCINE) 5,000 UNITS/ML 1ML VIAL ONE ×2 (13:12→15:12)
[2019-01-07] MEDS ORDERED: LIDOCAINE HCL 1%, 10 MG/ML (20ML VIAL) ONE (13:13)
[2019-01-07] MEDS ORDERED: BENZOIN TINCTURE SWABSTICK TP ONE (13:13)
[2019-01-07] MEDS ORDERED: PAPAVERINE HCL 30 MG/1 ML 10 ML VIAL NR ONE (14:23)
[2019-01-07] MEDS ORDERED: POVIDONE-IODINE OINTMENT 10% - 28.4 GM TUBE ONE (14:39)
[2019-01-07] MEDS ORDERED: MIDAZOLAM HCL 2 MG/2 ML SINGLE DOSE VIAL ONE (15:13)
[2019-01-07] MEDS ORDERED: PROPOFOL 20 ML ONE (15:13)
[2019-01-07] MEDS ORDERED: DEXAMETHASONE SOD PHOSPHATE 4 MG/1 ML VIAL ONE (15:15)
[2019-01-07] MEDS ORDERED: LIDOCAINE HCL/PF 2% SDV 5ML VIAL ONE (15:15)
[2019-01-07] MEDS ORDERED: ceFAZolin SODIUM 1 GM VIAL ONE (15:15)
[2019-01-07] MEDS ORDERED: SODIUM CHLORIDE 0.9% P/F 10 ML VIAL IJ ONE (15:15)
--- NOTE | 2019-01-07 15:21 | HP ---
Satellite H - Chief Complaint History of Present Illness: 58 year old man with renal failure. Needs AV access for planned HD. - Past Medical History Allergies/Adverse Reactions: Allergies Allergy/AdvReac Type Severity Reaction Status Date / Time No Known Allergies Allergy Verified 01/07/19 13:22 Cardiovascular: Yes: Aortic Stenosis, CAD, CHF, HTN, Hyperlipdemia, IN, Mitral Insufficiency Renal/: Yes: Renal Inusuff Endocrine: Yes: Diabetes Mellitus Additional Medical History: Left radial artery harvest for CABG - Current Medications Current Medications: Home Medications Medication Instructions Recorded Ranolazine [Ranexa] 500 mg PO BID 07/13/13 Ranitidine [Zantac -] 150 mg PO BID 06/19/17 Aspirin [ASA -] 81 mg PO DAILY 09/28/17 Nitroglycerin [Nitrostat] 0.4 mg SL PRN PRN 09/28/17 Carvedilol [Coreg -] 25 mg PO BID #60 tablet 09/30/17 Atorvastatin Ca [Lipitor] 80 mg PO HS 06/01/18 Ergocalciferol (Vitamin D2) 50,000 unit PO WEEKLY 06/01/18 [Vitamin D2] [place]-3 Fatty Acids [Ophir-3] 1,000 mg PO BID 06/01/18 Clopidogrel Bisulfate [Plavix -] 75 mg PO DAILY 30 Days #0 tab 06/08/18 Acetaminophen 650 mg PO ASDIR PRN 09/05/18 Mupirocin Ointment [Bactroban] 1 applic TP BID #1 tube 09/09/18 Collagenase Clostridium Hist. 90 gm TP DAILY #1 tube 09/28/18 [Santyl] Torsemide [Demadex -] 60 mg PO DAILY 09/28/18 Febuxostat [Uloric -] 1 tab PO DAILY 11/02/18 Ferric Citrate [Auryxia] 1 tab PO BID 11/02/18 Folic Acid 1 tab PO DAILY 11/02/18 Hydralazine HCl 25 mg PO TID 11/02/18 Isosorbide Mononitrate [Imdur -] 1 tab PO DAILY 11/02/18 Insulin Sliding Scale [Novolog 10 units SQ ACHS 11/30/18 Vial Sliding Scale -] Insulin Pump [Insulin Pump - (Nf)] 1 each NR 01/07/19 Sevelamer HCl [Renagel] 800 mg PO TID 01/07/19 Satellite Physical Exam - Physical Examination Vital Signs: Vital Signs Period Temp Pulse Resp BP Sys/Gallo Pulse Ox Last 24 Hr 98.2 F 70 16 138/76 99 General Appearance: Well Nourished, Alert & Oriented x3 ENT: Clear Lung: Clear to auscultation Heart: Regular rate & rhythm Abdomen: Soft Extremities: No edema, Other (Left hand well perfused) Neurological: Intact Satellite Impression/Plan - Impression/Plan Impression: CKD Operative Procedure: Creastion AV fistula left arm Date to be Performed: 01/07/19
[2019-01-07] MEDS ORDERED: ACETAMINOPHEN WITH CODEINE 300MG/30MG TABLET PO PRN (15:22)
[2019-01-07] MEDS ORDERED: ceFAZolin SODIUM 1 GM VIAL IVPB ONE (15:35)
[2019-01-07] MEDS ORDERED: oxyCODONE HCL 5 MG TABLET PO PRN (15:41)
[2019-01-07] MEDS ORDERED: ONDANSETRON 4 MG/2 ML VIAL IVPUSH PRN (15:41)
[2019-01-07] MEDS ORDERED: LIDOCAINE HCL 1%, 10 MG/ML (20ML VIAL) NR ONE (15:49)
[2019-01-07] MEDS ORDERED: DESFLURANE GAS 240 ML BOTTLE IH ONE (15:54)
--- NOTE | 2019-01-07 16:44 | OP ---
Operative Note - Note: Operative Date: 01/07/19 Pre-Operative Diagnosis: CKD Operation: Creation AV fistula left arm, brachial-basilic, 1st stage Findings: patent basilic vein Post-Operative Diagnosis: Same as Pre-op Surgeon: Kevin Khoury Anesthesiologist/COMPRESSION MOLDING MACHINE OPERATOR: Benigno Dinh Anesthesia: General
[2019-01-07 18:05] VITALS: TEMP 97.6
[2019-01-07 19:31] VITALS: BP 142/82; PULSE 76
--- NOTE | 2019-01-08 06:43 | SURG ---
Surgery Relationship Mgr Note Relationship Mgr: Amy Rios PA-C Date of Service: 01/07/19 Diagnosis: CKD Procedure: Creation AV fistula left arm, bracial-basilic, 1st stage I was present for the entirety of the operative procedure. For further detail, please refer to operative report. Visit type - Case Type Case Type: Scheduled - Emergency Emergency Visit: No - New patient This patient is new to me today: Yes Date on this admission: 01/08/19 - Critical Care Critical Care patient: No
--- NOTE | 2019-01-12 20:57 | OP ---
DATE OF OPERATION: 01/07/2019 SURGEON: Kevin Jama MD PROCEDURE: Creation of arteriovenous fistula, left arm; brachial artery-basilic vein, first stage. PREOPERATIVE DIAGNOSIS: Chronic renal disease. POSTOPERATIVE DIAGNOSIS: Chronic renal disease. ANESTHESIA: General. ANESTHESIOLOGIST: Benigno Dinh CRNA OPERATIVE FINDINGS: The basilic vein in the distal left upper arm was patent with a diameter of approximately 4 mm. The brachial artery was patent with calcified douglas. OPERATIVE PROCEDURE: Following routine patient identification with side and site verification, general anesthesia was induced. The left arm was prepped with ChloraPrep. Timeout was performed. Next, 1% lidocaine was infiltrated in the skin over the distal basilic vein which had been mapped preoperatively with duplex imaging. A skin incision was made and was carried down through subcutaneous tissue using cautery for hemostasis. The vein was identified and carefully mobilized from the surrounding tissues. All side branches were ligated with silk ties and divided. The vein was ligated distally and incised. It was distended with heparin and papaverine solution. Number 5 and number 8 feeding tubes were passed proximally without resistance, and the vein was filled with heparin solution and occluded with a small bulldog clamp. The brachial artery was then exposed by deepening the incision over the pulse. It was encircled with vessel loops. Crossing vessels were ligated with silk ties and divided. The artery was then occluded with the vessel loops and opened on exposed surface with a 6-mm arteriotomy. The end of the vein was freed and spatulated and anastomosed to the side of the artery with running suture of 6-0 Prolene. Prior to completion of the suture line, the artery was allowed to back bleed and flush, and the vein was flushed. Suture line was completed, and all vessels were released. Bleeding from the suture line was controlled with Surgicel. When hemostasis was achieved, the wound was closed with interrupted suture of 3-0 Vicryl and skin kings. Sterile dressings were applied, and the patient was taken to the recovery room in stable condition. KEVIN JAMA M.D. [id number]
== END 2019-01-07 19:15 | disposition home or self-care (01) ==
LOC: JASU-SURG 04:58
PROVIDERS: ATTEND Surgery
PROC: 03180ZD Bypass Left Brachial Artery to Upper Arm Vein, Open Approach (ICD-10-PCS; principal; 2019-01-07 15:00)
DX: E11.22 Type 2 diabetes mellitus with diabetic chronic kidney disease (principal); I13.2 Hypertensive heart and chronic kidney disease with heart failure and with stage 5 chronic kidney disease, or end stage renal disease; I50.9 Heart failure, unspecified; N18.6 End stage renal disease; I25.10 Atherosclerotic heart disease of native coronary artery without angina pectoris; I35.0 Nonrheumatic aortic (valve) stenosis; I34.0 Nonrheumatic mitral (valve) insufficiency; Z95.1 Presence of aortocoronary bypass graft; E78.5 Hyperlipidemia, unspecified
CPT/HCPCS: 36415; 80053; 80061; 82962; 83036; 83721; 84132; 84443; 85027; 85610; 85730; 94760; J1644

== ENCOUNTER 2019-02-07 10:32 | Day surgery (SDC) | payer BC, OTHER ==
[2019-02-04 08:56] VITALS: BMI 35.7
[~2019-02-07 10:32] MED LIST: HEPARIN NA (PORCINE) 5,000 UNITS/ML 1ML VIAL SQ ONE; LIDOCAINE HCL 1%, 10 MG/ML (20ML VIAL) INF ONE
[2019-02-07] MEDS ORDERED: HEPARIN NA (PORCINE) 5,000 UNITS/ML 1ML VIAL ONE (11:02)
[2019-02-07] MEDS ORDERED: POVIDONE-IODINE OINTMENT 10% - 28.4 GM TUBE ONE (11:02)
[2019-02-07] MEDS ORDERED: ROPIVACAINE HCL 0.5% 30ML VIAL ONE (12:53)
[2019-02-07] MEDS ORDERED: MIDAZOLAM HCL 2 MG/2 ML SINGLE DOSE VIAL ONE ×2 (12:54)
[2019-02-07] MEDS ORDERED: LIDOCAINE HCL 1%, 10 MG/ML (20ML VIAL) INF ONE (15:21)
--- NOTE | 2019-02-07 15:24 | HP ---
History & Physical Update - History Currently as noted:: Left arm AV fistula present, needs exteriorization - Physical Physical: No Change - Assessment Assessment: No Change - Plan Currently as noted:: Revision AV fistula left arm
[2019-02-07] MEDS ORDERED: ONDANSETRON 4 MG/2 ML VIAL IVPUSH PRN (16:59)
[2019-02-07] MEDS ORDERED: ceFAZolin SODIUM 1 GM VIAL ONE (17:02)
[2019-02-07] MEDS ORDERED: SODIUM CHLORIDE 0.9% P/F 10 ML VIAL IJ ONE (17:02)
--- NOTE | 2019-02-07 17:09 | OP ---
Operative Note - Note: Operative Date: 02/07/19 Pre-Operative Diagnosis: ESRD Operation: Revivion AV fistula left arm Findings: Patent basilic vein fistula Post-Operative Diagnosis: Same as Pre-op Surgeon: Kevin Khoury Dry Paste Supervisor: Amy Rios Anesthesiologist/FISHING CAPTAIN: Kirit Kelly Anesthesia: MAC (axillary block) Estimated Blood Loss (mls): 25
[2019-02-07 18:30] VITALS: TEMP 98.1
[2019-02-07 19:37] VITALS: BP 138/64; PULSE 88
--- NOTE | 2019-02-08 15:16 | SURG ---
Surgery Supreme Court Judge Note Supreme Court Judge: Amy Rios PA-C Date of Service: 02/07/19 Diagnosis: ESRD Procedure: Revivion AV fistula left arm I was present for the entirety of the operative procedure. For further detail, please refer to operative report. Visit type - Case Type Case Type: Scheduled - Emergency Emergency Visit: No - New patient This patient is new to me today: Yes Date on this admission: 02/07/19
--- NOTE | 2019-02-10 12:17 | OP ---
DATE OF OPERATION: 02/07/2019 SURGEON: Kevin Jama MD MAGNETIC HEALER: DIANN Peñaloza PROCEDURE: Revision of left arm arteriovenous fistula with exteriorization. PREOPERATIVE DIAGNOSIS: End-stage renal disease. POSTOPERATIVE DIAGNOSIS: End-stage renal disease. ANESTHESIA: Axillary block. ANESTHESIOLOGIST: Kirit Kelly DO OPERATIVE FINDINGS: The left basilic vein fistula was patent with adequate diameter. OPERATIVE PROCEDURE: Following routine patient identification, a left axillary block was performed. The left arm was prepped with ChloraPrep. Timeout was performed. An incision was made over the left basilic vein, which had been mapped preoperatively with duplex imaging from the distal upper arm to the axilla. The vein was exposed using cautery for hemostasis. The vein was mobilized from its bed with sharp dissection. All side branches were ligated with silk ties and divided. A major branch of musculocutaneous nerve was draped over the vein in the distal portion of the arm and it was not felt that this could be divided. Therefore, the vein was divided between clamps and brought out from underneath the nerve. A tunneler was passed along the anterior aspect of the arm between the proximal and distal ends of the incision and the vein passed through the tunneler with care not to twist it. The 2 ends of the vein were then re-anastomosed with a 4-quadrant technique using running 6-0 Prolene suture. The vein was flushed with heparin/saline solution prior to completion. The suture line was completed, vessels were released, and there was good flow through the fistula with a palpable thrill. The wound was then closed with interrupted suture of 3-0 Vicryl in subcutaneous tissues and muscle fascia, and skin kings. A sterile dressing was applied and the patient was taken to the recovery room in stable condition. KEVIN JAMA M.D. [id number]
== END 2019-02-07 19:40 | disposition home or self-care (01) ==
LOC: JASU-SURG 10:32
PROVIDERS: ATTEND Surgery
PROC: 05WY07Z Revision of Autologous Tissue Substitute in Upper Vein, Open Approach (ICD-10-PCS; principal; 2019-02-07 12:00)
DX: I12.0 Hypertensive chronic kidney disease with stage 5 chronic kidney disease or end stage renal disease (principal); E11.22 Type 2 diabetes mellitus with diabetic chronic kidney disease; N18.6 End stage renal disease; Z99.2 Dependence on renal dialysis; Z79.4 Long term (current) use of insulin
CPT/HCPCS: 36415; 71045-TC-FY; 82962; 84132; 94760; J1644

== ENCOUNTER 2019-02-11 21:18 | Inpatient (IN) | payer BC, OTHER ==
[2019-02-11 22:04] VITALS: BMI 35.2
--- NOTE | 2019-02-11 22:10 | PDOC ---
History of Present Illness - General Chief Complaint: Blood Pressure Problem Stated Complaint: HYPOTENSION Time Seen by Provider: 02/11/19 21:42 - History of Present Illness Initial Comments: Anjelica Long is a 58yo man with a PMH of IDDM s/p insulin pump, HTN, HLD, CAD, CHF, CABG s/p pacemaker, CKD, COPD, ESRD on HD (last HD today, completed, 1.9L removed) who presents with shortness of breath, chest pain, and diaphoresis. Per EMS and his , he had just completed dialysis when his noticed that he was altered and somnolent. EMS was called immediately; he was noted to be hypoxic to the 70's and had multiple short runs of vtach. Per EMS, he also became bradycardic to the 40's for a short period of time without his pacemaker kicking in. He received a total of 1700cc of IVF prior to arriving at the ED. On arrival to the ED, he was noted to be grossly diaphoretic, hypotensive to the 60/40's, and tachycardic in the 120-130's with frequent short runs of vtach. Past History - Past Medical History Allergies/Adverse Reactions: Allergies Allergy/AdvReac Type Severity Reaction Status Date / Time No Known Allergies Allergy Verified 02/07/19 11:49 Home Medications: Ambulatory Orders Ranolazine [Ranexa] 500 mg PO BID 07/13/13 Ranitidine [Zantac -] 150 mg PO BID 06/19/17 Aspirin [ASA -] 81 mg PO DAILY 09/28/17 Nitroglycerin [Nitrostat] 0.4 mg SL PRN PRN 09/28/17 Carvedilol [Coreg -] 25 mg PO BID #60 tablet 09/30/17 Atorvastatin Ca [Lipitor] 80 mg PO HS 06/01/18 Ergocalciferol (Vitamin D2) [Vitamin D2] 50,000 unit PO WEEKLY 06/01/18 [place]-3 Fatty Acids [[place]-3] 1,000 mg PO BID 06/01/18 Clopidogrel Bisulfate [Plavix -] 75 mg PO DAILY 30 Days #0 tab 06/08/18 Torsemide [Demadex -] 60 mg PO BID 09/28/18 Febuxostat [Uloric -] 1 tab PO DAILY 11/02/18 Ferric Citrate [Auryxia] 1 tab PO BID 11/02/18 Folic Acid 1 tab PO DAILY 11/02/18 Hydralazine HCl 25 mg PO TID 11/02/18 Isosorbide Mononitrate [Imdur -] 30 mg PO DAILY 11/02/18 Sevelamer HCl [Renagel] 800 mg PO TID 01/07/19 Gabapentin [Neurontin] 100 mg PO BID 02/12/19 Anemia: Yes Asthma: No Cancer: No Cardiac Disorders: Yes (H/O AK) CVA: No COPD: No CHF: Yes Dementia: No Diabetes: Yes (IDDM) GI Disorders: No Disorders: No HTN: Yes Hypercholesterolemia: Yes Liver Disease: No Seizures: No Thyroid Disease: No - Surgical History Cardiac Surgery: Yes (CABG,ICD,CARD STENT X1, DEFIBRILLATOR) GI Surgery: Yes (INSULIN PUMP) Lung Surgery: (2006-stents 2006) Orthopedic Surgery: Yes (left knee arthoscopy) - Immunization History Immunization Up to Date: (UNKNOWN) - Suicide/Smoking/Psychosocial Hx Smoking History: Never smoked Have you smoked in the past 12 months: No Hx Alcohol Use: No Drug/Substance Use Hx: No Substance Use Type: None Hx Substance Use Treatment: No Review of Systems - Review of Systems Comments:: General: No fevers, no chills, no weight or appetite change, + malaise, + diaphoresis HEENT: No changes in vision, no changes in hearing, no congestion, no sore throat CV: See HPI Pulm: No SOB, no cough, no wheezing GI: No nausea or vomiting, no change in bowel habits, no melena : No frequency, no urgency, no dysuria Musc: No back pain, no joint swelling, no recent injury Skin: No rash, no lesions, no erythema Endo: No excessive thirst, no heat/cold intolerance Heme: No unusual bruising or bleeding, no swollen glands Neuro: No syncope, no numbness/tingling, no focal weakness Vasc: No claudication Psych: No recent change in mood, no SI or HI *Physical Exam - Physical Exam Comments: General: Uncomfortable, in moderate distress, +diaphoretic HEENT: PERRL, EOMI, MMM, voice normal Cards: Irregular, no murmur appreciated. Dialysis catheter in place in upper right chest. Pulm: Comfortable w/ nonrebreather. No crackles or wheezing noted Abd: Soft, nontender, nondistended Ext: Atraumatic. Minimal LE edema. Left 2nd toe w/ clean bandage in place. LUE w / surgical incision with kings in place, c/d/i. Vasc: Extremities WWP. Palpable radial pulses b/l Neuro: A&Ox3, CN grossly intact, normal speech, motor/sensory grossly intact and symmetric Psych: Mood appropriate to situation ED Treatment Course - LABORATORY CBC & Chemistry Diagram: 02/12/19 04:00 02/12/19 04:00 - ADDITIONAL ORDERS Additional order review: Laboratory Results 02/11/19 21:21 POC Glucometer 144 02/11/19 21:21 POC Glucometer 144 Medical Decision Making - Medical Decision Making 02/11/19 21:49 Anjelica Long is a 58yo man with a PMH of IDDM s/p insulin pump, HTN, HLD, CAD, CHF, CABG s/p pacemaker, CKD, COPD, ESRD on HD (last HD today, completed, 1.9L removed) who presents with shortness of breath, chest pain, and diaphoresis after his noticed AMS following dialysis today. Per EMS, he was hypoxic to the 70's on the way to the hospital and has been having numerous runs of vtach; he additionally became bradycardic to the 40's without his pacemaker firing. - On arrival hypotensive to 60/40's with HR in 120-130's and frequent runs of vtach but alert and oriented. - There was initially difficulty obtaining IV access. An IO was placed by Dr Pagan, and a left EJ was placed by Dr Wellington. - Calcium gluconate was started empirically for possible hyperkalemia - Initial EKG w/ 3-4 beats vtach - Electrical cardioversion, now in NSR with HR in 80's. BP up to 110/80's - [facility] contacted by Dr Wellington, will come to interrogate pacemaker within the next 1-2 hours 02/11/19 22:41 - Recurrence of runs of vtach - 4mg morphine ordered in anticipation of synchronized cardioversion 02/11/19 23:33 - Labs reviewed. Trop elevated at 0.4, appears to be near baseline. BNP elevated also at baseline ([id number]), and cannot use for evaluation given ESRD. Potassium slightly low at 3.3. No other significant changes or abnormalities - CXR completed. No focal pathology appreciated - Procainamide drip ordered by Dr Wellington; currently running - Cardiology (Dr Bertrand) called, waiting for call back - ICU and medicine team contacted for admission. ICU team at bedside for evaluation 02/12/19 00:01 - Spoke to Dr Bertrand. Recommending repleting potassium to 4.0, mag to 2.0. Should give home dose of carvedilol - IV potassium ordered - Will give oral dose of carvedilol - spoke to ICU team regarding meds - Will be admitted to ICU when bed is available Seen with Dr Wellington. Lyndsey Muniz PGY1 *DC/Admit/Observation/Transfer Diagnosis at time of Disposition: ICD (implantable cardioverter-defibrillator) in place, V-tach - Discharge Dispostion Decision to Admit order: Yes - Referrals - Patient Instructions - Post Discharge Activity
[2019-02-11 22:36] LABS: INR 1.15 (0.83-1.09); PROTHROMBIN TIME (PATIENT) 13.6 SEC (9.7-13.0)
[2019-02-11] MEDS ORDERED: morphine SULFATE 4 MG/ML VIAL ONE (22:41)
[2019-02-11] MEDS ORDERED: morphine CARPU-JECT 4 MG/1 ML DISP.SYRIN IVPUSH ONE (22:41)
[2019-02-11 22:42] LABS: ALBUMIN 2.9 g/dl (3.4-5.0); BLOOD UREA NITROGEN 33.8 mg/dL (7-18); CALCIUM 7.5 mg/dL (8.5-10.1); CREATININE 2.8 mg/dL (0.55-1.3); POTASSIUM 3.3 mmol/L (3.5-5.1); TOT PROT 6.9 g/dl (6.4-8.2)
[2019-02-11] MEDS ORDERED: MAGNESIUM SULF 50% (8.12 MEQ/2 ML-1 GM VIAL) IVPB ONE (22:48)
[2019-02-11] MEDS ORDERED: MAGNESIUM 1GM/D5W - 1 GM/100 ML IVPB IVPB ONE (22:51)
[2019-02-11 22:56] LABS: BASO % 0.4 % (0-2.0); EOS % 1.2 % (0-4.5); HEMATOCRIT 24.8 % (35.4-49); HEMOGLOBIN 8.3 GM/dL (11.7-16.9); LYMPH % 11.9 % (8-40); MCH 32.6 pg (25.7-33.7); MCHC 33.6 g/dl (32.0-35.9); MEAN CELL VOLUME 97.1 fl (80-96); MEAN PLT VOLUME 7.4 fl (7.5-11.1); MONO % 8.8 % (3.8-10.2); NEUT % 77.7 % (42.8-82.8); PLATELET COUNT 192 K/MM3 (134-434); RBC 2.55 M/mm3 (4.00-5.60); RDW 16.1 % (11.9-15.9); WHITE BLOOD COUNT 7.5 K/mm3 (4.0-10.0)
--- NOTE | 2019-02-11 23:04 | PDOC ---
Documentation entered by Matilde Miller SCRIBE, acting as scribe for Tequila Wellington MD. Tequila Wellington MD: This documentation has been prepared by the scribe, Matilde Miller SCRIBE, under my direction and personally reviewed by me in its entirety. I confirm that the documentation accurately reflects all work, treatment, procedures, and medical decision making performed by me. Attending Attestation - Resident Resident Name: Lyndsey Muniz - ED Attending Attestation I have performed the following: I have examined & evaluated the patient, The case was reviewed & discussed with the resident, I agree w/resident's findings & plan - HPI HPI: 02/11/19 22:14 The patient is a 58-year-old male with a past medical history significant for IA , s/p CABG. ICD implant (2007), HTN, HLD, IDDM, ESRD (on Dialysis) presents to the emergency department from dialysis center via EMS with hypotension and hypoxia. History obtains from EMS and . The patient is coming from Dialysis , where he was getting Dialysis for the first time. states after his 4 hours dialysis he was noted to be lethargic, altered, pale, and diaphoretic. The patients BP was noted to be 72/46. The patient was started on 1700 cc of normal saline. On EMS arrival, the patient was noted to be pale, cool, diaphoretic, and hypoxic to 70s. The patient was placed on a nonrebreather 12L, with O2 improvement to the 90s. The patient was also noted to be in V-tach, with intermittent breaks. The patient arrived to the ER at 9:13 pm. Allergies: NKDA Social history: No reported history of tobacco, alcohol or recreational drugs. Surgical history: AICD and CABG PCP: Dr. Rian Higuera. - Physicial Exam PE: 02/11/19 23:03 GENERAL: afebrile Awake, alert, and fully oriented, in no acute distress HEAD: No signs of trauma EYES: +left iris clouded, history of retinal tear on the left eye. ENT: Ears clear bilaterally. Auricles normal inspection, hearing grossly normal , nares patent, oropharynx clear without exudates. Moist mucosa NECK: Normal ROM, supple, no lymphadenopathy, JVD, or masses LUNGS: Breath sounds equal, clear to auscultation bilaterally. No wheezes, and no crackles HEART: Regular rate and rhythm, normal S1 and S2, no murmurs, rubs or gallops ABDOMEN: soft, obese abdomen, nontender. EXTREMITIES: +mild 1+ pitting edema bilaterally to the legs. Normal range of motion. No clubbing or cyanosis. No cords, erythema, or tenderness NEUROLOGICAL: +responsive to questions but on arrival the patient was a little somelant. Cranial nerves II through XII grossly intact. SKIN: +patient has multiple tattoos. Warm, Dry, normal turgor, no rashes or lesions noted. - Critical Care Time Total Critical Care Time: 60 Critical Care Statement: The care of this patient involved high complexity decision making to prevent further life threatening deterioration of the patient 's condition and/or to evaluate & treat vital organ system(s) failure or risk of failure. - Medical Decision Making 02/11/19 23:06 ICU called. Case discussed with Dr. Grant 02/11/19 23:[address] Rian Higuera. 02/11/19 23:09 ICU made aware of the patient. I will give report to Dr. Beckman, the associate of Dr. Higuera. 02/11/19 23:[address] Higuera. Call placed to Dr. Bertrand cardiology. 02/11/19 23:49 Second call placed to Dr. Bertrand. Case discussed with Dr. Bertrand. 02/12/19 00:27 Pt had been cardioverted by me with 200J when his BP dropped to 68/30, and he was becoming clammy and unresponsive. Pt also had IO line placed by the team and a EJ IV on the left by me. Pt cardioverted successfully, but soon he had more and more runs of VTACH; I started procainamide drop at 20mg/min. Dr. Bertrand agrees with the procainamide drip. Pt is stable. I called [employer] after cardioversion with electricity to let them know that the AICD was not working. Pt has a Model E110 AICD. Someone is coming to eval the AICD. 02/12/19 00:31 Pt will be admitted to the ICU
[2019-02-11] MEDS ORDERED: WATER IVPB SCH (23:30)
[2019-02-11] MEDS ORDERED: PROCAINAMIDE HCL IVPB SCH (23:30)
[2019-02-11] MEDS ORDERED: DEXTROSE 5% IVPB SCH (23:30)
[2019-02-11] MEDS ORDERED: POTASSIUM CHLORIDE 20 MEQ PREMIX IVPB 100 ML IVPB ONE (23:56)
[2019-02-12] MEDS ORDERED: CARVEDILOL 25 MG TABLET (FP) PO ONE (00:11)
[2019-02-12] MEDS ORDERED: KCL 10 MEQ IVPB 10 MEQ/100 ML INFUS.BAG IVPB SCH ×2 (00:15→00:45)
[2019-02-12 00:18] LABS: MAGNESIUM 1.9 mg/dL (1.8-2.4)
--- NOTE | 2019-02-12 00:25 | CONSULT ---
Consultation: REQUESTING PROVIDER: CONSULT REQUEST: We have been asked to medically evaluate this patient for ICU monitoring HISTORY OF PRESENT ILLNESS: 58 y/o male with PMH of CAD s/p CABG, and PCI w/stents, AICD placement (11 years ago) ESRD (on HD last session was today where 1.9 L was removed), HTN, DM , HLD, COPD presents to the ED after dialysis with hypotension/diaphoresis. Patient states that he has been having dialysis since September after a complicated osteomyeltitis infection and today was his first session at a new location. He states that he occasionally gets dizzy and diaphoretic, with some slight trouble swallowing post dialysis but the past few sessions it has been getting worse. On the way to the ER, he was found to be bradycardic in the 40's- 50's hypotenisve with maps in the 50's- when he arrived he had episodes of 4-5 beats of SVT and was shocked given hemodynamic instability- he converted back to NSR and became normotensive however he has been having intermitten beats of v -tach. This has never happened to him in the past- he gets his AICD checked every 3 months and has never had any issues with it. he denies any recent illnesses, no sick contacts or recent travel. He had feeling fine leading up to dialysis today, though he states that he feels he is getting short of breath more freqently and is having decreased exercise intolerance In the ED patient was given almost 2liters of fluid, 1 gram of mag, and was given calcium gluconate upon arrival Patient was shocked one time then converted back to NSR and became normotensive , however he continued to have short runs of v-tach patient was started on procainamide drip I spoke with Dr. Munoz, who suggested to keep the drip overnight, to give patient his home dose of coreg and to replete his electrolytes (maintain K>4, Mag >2) REVIEW OF SYSTEMS: CONSTITUTIONAL: Present: diaphoresis Absent: fever, chills, generalized weakness, malaise, loss of appetite, weight change HEENT: Absent: rhinorrhea, nasal congestion, throat pain, throat swelling, difficulty swallowing, mouth swelling, ear pain, eye pain, visual changes CARDIOVASCULAR: Present: palpitations Absent: chest pain, syncope, palpitations, irregular heart rate, lightheadedness, peripheral edema RESPIRATORY: Absent: cough, shortness of breath, dyspnea with exertion, orthopnea, wheezing, stridor, hemoptysis GASTROINTESTINAL: Absent: abdominal pain, abdominal distension, nausea, vomiting, diarrhea, constipation, melena, hematochezia GENITOURINARY: Absent: dysuria, frequency, urgency, hesitancy, hematuria, flank pain, genital pain MUSCULOSKELETAL: Absent: myalgia, arthralgia, joint swelling, back pain, neck pain SKIN: Absent: rash, itching, pallor HEMATOLOGIC/IMMUNOLOGIC: Absent: easy bleeding, easy bruising, lymphadenopathy, frequent infections ENDOCRINE: Absent: unexplained weight gain, unexplained weight loss, heat intolerance, cold intolerance NEUROLOGIC: Absent: headache, focal weakness or paresthesias, dizziness, unsteady gait, seizure, mental status changes, bladder or bowel incontinence PSYCHIATRIC: Absent: anxiety, depression, suicidal or homicidal ideation, hallucinations. PHYSICAL EXAMINATION Vital Signs - 24 hr 02/11/19 21:42 Temperature 97.6 F Pulse Rate 130 H Respiratory 25 H Rate Blood Pressure 74/42 L O2 Sat by Pulse 100 Oximetry (%) GENERAL: Awake, alert, on non-rebreather; diaphoretic in slight acute distress EYES: PEERLA; EOMI; no scleral icterus NECK:no JVD; no lymphadenopathy . LUNGS: slightly diminished air entry B/L; no rales, rhonchi or wheezing HEART:tachycardic, normal S1 and S2 without murmur, rub or gallop. ABDOMEN: Soft, nontender, not distended, normoactive bowel sounds, no guarding, no rebound, no masses. No hepatomegaly or splenomegaly. MUSCULOSKELETAL: Normal range of motion at all joints. No bony deformities or tenderness. No CVA tenderness. EXTREMITIES: warm; well-perfused no clubbing/cyanosis 1+ pitting edema B/L NEUROLOGICAL: Cranial nerves II-XII intact. Normal speech. Normal gait. PSYCHIATRIC: Cooperative. Good eye contact. Appropriate mood and affect. SKIN: Warm, dry, normal turgor, no rashes or lesions noted. Laboratory Results - last 24 hr 02/11/19 02/11/19 02/11/19 21:21 21:49 21:49 WBC Cancelled Corrected WBC (auto) Cancelled RBC Cancelled Hgb Cancelled Hct Cancelled MCV Cancelled MCH Cancelled MCHC Cancelled RDW Cancelled Plt Count Cancelled MPV Cancelled Absolute Neuts (auto) Cancelled Neutrophils % Cancelled Lymphocytes % Cancelled Monocytes % Cancelled Eosinophils % Cancelled Basophils % Cancelled Nucleated RBC % Cancelled Platelet Estimate Cancelled Platelet Comment Cancelled PT with INR INR Sodium Potassium Chloride Carbon Dioxide Anion Gap BUN Creatinine Est GFR (CKD-EPI)AfAm Est GFR (CKD-EPI)NonAf POC Glucometer 144 Random Glucose Lactic Acid Calcium Magnesium Total Bilirubin AST ALT Alkaline Phosphatase Creatine Kinase Troponin I B-Natriuretic Peptide 78172.2 H Total Protein Albumin 02/11/19 02/11/19 02/11/19 21:49 21:49 21:49 WBC Corrected WBC (auto) RBC Hgb Hct MCV MCH MCHC RDW Plt Count MPV Absolute Neuts (auto) Neutrophils % Lymphocytes % Monocytes % Eosinophils % Basophils % Nucleated RBC % Platelet Estimate Platelet Comment PT with INR 13.60 H INR 1.15 H Sodium 136 Potassium 3.3 L Chloride 97 L Carbon Dioxide 29 Anion Gap 10 BUN 33.8 H Creatinine 2.8 H Est GFR (CKD-EPI)AfAm 27.76 Est GFR (CKD-EPI)NonAf 23.95 POC Glucometer Random Glucose 190 H Lactic Acid 3.2 H* Calcium 7.5 L Magnesium 1.9 Total Bilirubin 1.0 AST 15 ALT 14 Alkaline Phosphatase 96 Creatine Kinase 56 Troponin I 0.41 H B-Natriuretic Peptide Total Protein 6.9 Albumin 2.9 L 02/11/19 22:35 WBC 7.5 Corrected WBC (auto) RBC 2.55 L Hgb 8.3 L Hct 24.8 L D MCV 97.1 H MCH 32.6 MCHC 33.6 RDW 16.1 H Plt Count 192 D MPV 7.4 L Absolute Neuts (auto) 5.8 Neutrophils % 77.7 Lymphocytes % 11.9 D Monocytes % 8.8 Eosinophils % 1.2 Basophils % 0.4 Nucleated RBC % 0 Platelet Estimate Platelet Comment PT with INR INR Sodium Potassium Chloride Carbon Dioxide Anion Gap BUN Creatinine Est GFR (CKD-EPI)AfAm Est GFR (CKD-EPI)NonAf POC Glucometer Random Glucose Lactic Acid Calcium Magnesium Total Bilirubin AST ALT Alkaline Phosphatase Creatine Kinase Troponin I B-Natriuretic Peptide Total Protein Albumin Active Medications Generic Name Dose Route Start Last Admin Trade Name Freq PRN Reason Stop Dose Admin Chlorhexidine Gluconate 1 applic 02/12/19 22:00 Hibiclens For Decolonization - TP HS CRIS Procainamide HCl 2,000 mg/ 500 mls @ 300 mls/hr 02/11/19 23:30 Dextrose IVPB TITR CRIS Protocol 20 MG/MIN Potassium Chloride 10 meq in 100 mls @ 100 mls/hr 02/12/19 00:15 Potassium Chloride 10 Meq Premix Ivpb - IVPB 02/12/19 02:14 Q60M CRIS Mupirocin 1 applic 02/12/19 10:00 Bactroban Ointment (For Decolonization) - NS 02/17/19 09:59 BID [facility] ASSESSMENT/PLAN: 58 y/o male with PMH of CAD s/p CABG, PCI w/stents, AICD placement, ESRD (on HD) , HTN, HLD, COPD who presented to the ED from dialysis due to hypotension and hemodynamic instability #Neuro stable; no issues #Cardiovascular extensive cardiac history (CAD, CABG, AICD, CHF, HTN, HLD) -patient required to be shocked once with continued short intermittent runs of v -tach -patient started on procainamide drip -dr. munoz on board; states to c/w procainamide drip overnight in addition to receive home dose of coreg -[employer] was contacted and they are supposed to be coming to interrogate patients pacemaker as when patient when bradycardic it did not shock him -initial trop 0.4; will continue to trend cardiac enzymes likely 2/2 demand -c/w ASA and Plavix -holding antihypertensives in light of tenuous BP's at the moment -maintain K>4, Mag >2 -echo ordered -monitor hemodynamics #Endocrine patient has history of DM -BGMS ACHS -ISS ACHS -HbA1c ordered #Heme patient has a Hgb of 8.1 on arrival -patients baseline Hgb is 8-9 however MCV is high at 97 -patient on folic acid supplements -will monitor for signs of bleeding -iron studies pending #GI stable no issues #ID patient had elevated lactic acid likely reactive -currently on fluids -will repeat lactic acid #Pulmonary patient has history of COPD -does not use home O2 -c/w pro-air inhaler -monitor O2 saturations -maintain saturations between 88-92% #Renal patient is an ESRD patient on HD whose last session was prior to arrival -Cr upon arrival was 2.8 -will consult nephrology -monitor electrolytes -monitor urine output; I's and O's F/E/N not on fluids monitor electrolytes sodium-controlled diet DVT PPX: SCDS Dispo: We will continue to follow the patient. Thank you for this consultative opportunity. Problem List - Problems (1) ICD (implantable cardioverter-defibrillator) in place Code(s): Z95.810 - PRESENCE OF AUTOMATIC (IMPLANTABLE) CARDIAC DEFIBRILLATOR (2) V-tach Code(s): I47.2 - VENTRICULAR TACHYCARDIA (3) Anemia Code(s): D64.9 - ANEMIA, UNSPECIFIED Qualifiers: Anemia type: unspecified type Qualified Code(s): D64.9 - Anemia, unspecified (4) CAD (coronary artery disease) Code(s): I25.10 - ATHSCL HEART DISEASE OF [place] CORONARY ARTERY W/O ANG PCTRS Qualifiers: Coronary Disease-Associated Artery/Lesion type: [place] artery [place] vs. transplanted heart: [place] heart Associated angina: without angina Qualified Code(s): I25.10 - Atherosclerotic heart disease of [place] coronary artery without angina pectoris (5) Diabetes mellitus Code(s): E11.9 - TYPE 2 DIABETES MELLITUS WITHOUT COMPLICATIONS Qualifiers: Diabetes mellitus type: type 2 Diabetes mellitus complication status: without complication (6) Elevated troponin Code(s): R79.89 - OTHER SPECIFIED ABNORMAL FINDINGS OF BLOOD CHEMISTRY (7) HLD (hyperlipidemia) Code(s): E78.5 - HYPERLIPIDEMIA, UNSPECIFIED Qualifiers: Hyperlipidemia type: pure hypercholesterolemia Qualified Code(s): E78.00 - Pure hypercholesterolemia, unspecified (8) HTN (hypertension) Code(s): I10 - ESSENTIAL (PRIMARY) HYPERTENSION Qualifiers: Hypertension type: essential hypertension Qualified Code(s): I10 - Essential (primary) hypertension Visit type - Emergency Visit Emergency Visit: Yes ED Registration Date: 02/11/19 Care time: The patient presented to the Emergency Department on the above date and was hospitalized for further evaluation of their emergent condition. - New Patient This patient is new to me today: Yes Date on this admission: 02/12/19 - Critical Care Critical Care patient: Yes Total Critical Care Time (in minutes): 35 Critical Care Statement: The care of this patient involved high complexity decision making to prevent further life threatening deterioration of the patient 's condition and/or to evaluate & treat vital organ system(s) failure or risk of failure.
[2019-02-12] MEDS ORDERED: CARVEDILOL 12.5 MG TABLET (FP) ONE (01:00)
[2019-02-12] MEDS ORDERED: ALBUTEROL SO4 8 GM HFA INHALER IH PRN (01:05)
[2019-02-12] MEDS ORDERED: AMIODARONE IN DEXTROSE,ISO-OSM 150 MG/100 ML BAG IVPB ONE (03:06)
[2019-02-12] MEDS ORDERED: SODIUM CHLORIDE 500 ML IV STA (03:06)
[2019-02-12] MEDS ORDERED: AMIODARONE HCL 150 MG/3 ML VIAL ONE (03:08)
[2019-02-12] MEDS ORDERED: AMIODARONE IN DEXTROSE,ISO-OSM 360 MG/200 ML BAG IVPB SCH (03:15)
[2019-02-12] MEDS ORDERED: AMIODARONE IN DEXTROSE,ISO-OSM 360 MG/200 ML BAG ONE (03:36)
[2019-02-12] MEDS ORDERED: ALBUTEROL SO4 0.083% IH SOL 2.5 MG/3 ML VIAL.NEB. NEB ONE ×2 (03:45→04:26)
[2019-02-12] MEDS ORDERED: VASOPRESSIN 20 UNITS/ML VIAL IV ONE (04:07)
[2019-02-12] MEDS ORDERED: VASOPRESSIN 50 UNITS in SODIUM CHLORIDE 97.5 ML IVPB SCH (04:15)
[2019-02-12 04:23] VITALS: PULSE 60
[2019-02-12] MEDS ORDERED: TRIMETHOBENZAMIDE HCL 200MG/2ML INJ IM PRN (04:31)
[2019-02-12 04:45] LABS: HEMATOCRIT 25.3 % (35.4-49); HEMOGLOBIN 8.3 GM/dL (11.7-16.9); MCH 32.8 pg (25.7-33.7); MEAN CELL VOLUME 99.4 fl (80-96); MEAN PLT VOLUME 7.7 fl (7.5-11.1); PLATELET COUNT 189 K/MM3 (134-434); RBC 2.55 M/mm3 (4.00-5.60); RDW 16.3 % (11.9-15.9); WHITE BLOOD COUNT 6.1 K/mm3 (4.0-10.0)
[2019-02-12 05:12] LABS: ALBUMIN 2.6 g/dl (3.4-5.0); BILIRUBIN,TOTAL 1.2 mg/dL (0.2-1); CALCIUM 7.1 mg/dL (8.5-10.1); CREATININE 3.7 mg/dL (0.55-1.3); MAGNESIUM 2.3 mg/dL (1.8-2.4); PHOSPHOROUS 5.8 mg/dL (2.5-4.9); POTASSIUM 5.1 mmol/L (3.5-5.1); TOT PROT 6.4 g/dl (6.4-8.2)
[2019-02-12] MEDS ORDERED: EPINEPHrine 1:10,000 (P-F SYR) 1 MG/10 ML DISP.SYRIN ONE (05:12)
[2019-02-12] MEDS ORDERED: SODIUM BICARBONATE 8.4% 50 MEQ/50 ML VIAL ONE (05:13)
[2019-02-12] MEDS ORDERED: LORazepam 2 MG/ML SDV VIAL ONE (05:17)
--- NOTE | 2019-02-12 05:42 | PN ---
Progress Note (short form) - Note Progress Note: 4:55am; alerted by nurse that patients BP was dropping and patient had sudden change in mental status (patient was unresponsive to sternal rub and name), no pulses were noted- code 99 called overhead, chest compressions initiated. Please see code sheet for further details. patient not responsive to verbal or physical stimuli absent heart sounds absent breath sounds absent femoral and carotid pulses bilaterally pupils fixed and dilated patient pronounced at 5:26am <Jeni Grant - Last Filed: 02/12/19 06:09> - Note Progress Note: Addendum : Juan Pablo Leos [place] insurance application investigator declines case. [id number] Edi Man [facility] <Edi Man - Last Filed: 02/12/19 08:55> Problem List - Problems (1) ICD (implantable cardioverter-defibrillator) in place Code(s): Z95.810 - PRESENCE OF AUTOMATIC (IMPLANTABLE) CARDIAC DEFIBRILLATOR (2) V-tach Code(s): I47.2 - VENTRICULAR TACHYCARDIA (3) Anemia Code(s): D64.9 - ANEMIA, UNSPECIFIED Qualifiers: Anemia type: unspecified type Qualified Code(s): D64.9 - Anemia, unspecified (4) CAD (coronary artery disease) Code(s): I25.10 - ATHSCL HEART DISEASE OF [place] CORONARY ARTERY W/O ANG PCTRS Qualifiers: Coronary Disease-Associated Artery/Lesion type: [place] artery [place] vs. transplanted heart: [place] heart Associated angina: without angina Qualified Code(s): I25.10 - Atherosclerotic heart disease of [place] coronary artery without angina pectoris (5) Diabetes mellitus Code(s): E11.9 - TYPE 2 DIABETES MELLITUS WITHOUT COMPLICATIONS Qualifiers: Diabetes mellitus type: type 2 Diabetes mellitus complication status: without complication (6) Elevated troponin Code(s): R79.89 - OTHER SPECIFIED ABNORMAL FINDINGS OF BLOOD CHEMISTRY (7) HLD (hyperlipidemia) Code(s): E78.5 - HYPERLIPIDEMIA, UNSPECIFIED Qualifiers: Hyperlipidemia type: pure hypercholesterolemia Qualified Code(s): E78.00 - Pure hypercholesterolemia, unspecified (8) HTN (hypertension) Code(s): I10 - ESSENTIAL (PRIMARY) HYPERTENSION Qualifiers: Hypertension type: essential hypertension Qualified Code(s): I10 - Essential (primary) hypertension <Jeni Grant - Last Filed: 02/12/19 06:09>
[2019-02-12] MEDS ORDERED: INSULIN SLIDING SCALE (NOVOLOG) 1 VIAL SQ SCH (07:00)
[2019-02-12 08:20] VITALS: TEMP 97.7
[2019-02-12 08:29] VITALS: BP 124/103
[2019-02-12] MEDS ORDERED: MUPIROCIN 2% TOPICAL OINTMENT FOR DECOLONIZATION NS SCH (10:00)
--- NOTE | 2019-02-12 14:23 | PN ---
Progress Note (short form) - Note Progress Note: Called overnight regarding patient with h/o CAD s/p CABG s/p PCI, ischemic cardiomyopathy s/p ICD w/ h/o failure most recently at [facility] 09/2018, ESRD on HD referred from dialysis center for lethargy, altered mental status, pale, and diaphoretic, BP was noted to be 72/46, hypoxic saO2 70s, given IVF and noted to be in sustained ventricular tachycardia externally cardioverted and placed on procainamide bolus and gtt with improvement of hemodynamics, given carvedilol, K and Mg repletion after informed by ED resident LV fxn is normal per recent echo 08/2018 which upon review had poor windows, review of [facility] echo 10/05/2018 showed severe global HK LVEF 20-25. Overnight patient experienced progressive respiratory failure requiring HFO2, hypotension switched procainamide to amiodarone, started vasopressin gtt, lost pulse and succumbed despite resuscitative measures, ICD interrogated, but report not available, suspect VT rate may be slower than programmed therapy rate and terminal event was VT with ischemia or ischemic VT. His cardiologists Dr. Bridgett Mullen and Aidan Licea have been informed.
[2019-02-12] MEDS ORDERED: CHLORHEXIDINE GLUCONATE 4% CLEANSER FOR DECOLONIZATION TP SCH (22:00)
--- NOTE | 2019-02-14 00:30 | EKG ---
Test Reason : Blood Pressure : / mmHG Vent. Rate : 137 BPM Atrial Rate : 079 BPM P-R Int : 120 ms QRS Dur : 100 ms QT Int : 418 ms P-R-T Axes : 000 -06 229 degrees QTc Int : 631 ms POOR DATA QUALITY, INTERPRETATION MAY BE ADVERSELY AFFECTED Suspect unspecified pacemaker failure UNDETERMINED RHYTHM MARKED ST ABNORMALITY, POSSIBLE INFERIOR SUBENDOCARDIAL INJURY ABNORMAL ECG WHEN COMPARED WITH ECG OF 05-SEP-2018 13:49, CURRENT UNDETERMINED RHYTHM PRECLUDES RHYTHM COMPARISON, NEEDS REVIEW ST NOW DEPRESSED IN INFERIOR LEADS ST NOW DEPRESSED IN ANTEROLATERAL LEADS Confirmed by MD Kulwant, Yousif ([id number]) on 02/14/2019 12:30:37 AM Referred By: Confirmed By:Yousif Blum MD
== END 2019-02-12 05:26 | disposition expired | DRG 308 ==
LOC: JER 21:18 → JERBED 23:45 → JICU 02-12 02:47
PROVIDERS: ADMIT Internal Medicine; ATTEND Internal Medicine
PROC: 5A12012 Performance of Cardiac Output, Single, Manual (ICD-10-PCS; principal; 2019-02-11)
PROC: 5A1935Z Respiratory Ventilation, Less than 24 Consecutive Hours (ICD-10-PCS; 2019-02-11)
PROC: 0BH17EZ Insertion of Endotracheal Airway into Trachea, Via Natural or Artificial Opening (ICD-10-PCS; 2019-02-11)
PROC: 02HV33Z Insertion of Infusion Device into Superior Vena Cava, Percutaneous Approach (ICD-10-PCS; 2019-02-11)
PROC: 30233N1 Transfusion of Nonautologous Red Blood Cells into Peripheral Vein, Percutaneous Approach (ICD-10-PCS; 2019-02-11)
DX: I47.2 Ventricular tachycardia (principal); J96.90 Respiratory failure, unspecified, unspecified whether with hypoxia or hypercapnia; N18.6 End stage renal disease; I12.0 Hypertensive chronic kidney disease with stage 5 chronic kidney disease or end stage renal disease; E87.2 Acidosis; D64.9 Anemia, unspecified; I25.10 Atherosclerotic heart disease of native coronary artery without angina pectoris; R79.89 Other specified abnormal findings of blood chemistry; E78.5 Hyperlipidemia, unspecified; Z95.810 Presence of automatic (implantable) cardiac defibrillator; Z98.61 Coronary angioplasty status; Z95.1 Presence of aortocoronary bypass graft; I25.5 Ischemic cardiomyopathy; I95.9 Hypotension, unspecified; I47.1 Supraventricular tachycardia; J44.9 Chronic obstructive pulmonary disease, unspecified; R00.1 Bradycardia, unspecified; E11.22 Type 2 diabetes mellitus with diabetic chronic kidney disease; R57.0 Cardiogenic shock
CPT/HCPCS: 31500; 36415; 71045-TC-FY; 80053; 82550; 82962; 83036; 83605; 83735; 83880; 84100; 84484; 85025; 85027; 85610; 87040; 93005; 93010; 94640; 99282-25; J0282